=== PATIENT | female | born 1960 | race Caucasian/White ===

== ENCOUNTER → 2020-06-28 11:47 | Outpatient (CLI) | payer BC, SELFPAY ==
[2020-03-04 10:17] VITALS: BMI 40.7
--- NOTE | 2020-06-28 12:15 | RAD_ITS ---
STUDY: X-RAY LEFT FOOT, FIRST AND FIFTH TOES REASON FOR EXAM: Female, 59 years old. left great toe and 5th digit pain x 2 weeks ago. nki TECHNIQUE: 3 view(s) of the toe were obtained. COMPARISON: None. FINDINGS: No acute fracture, dislocation or osseous destruction. Osteopenia. Mild first metatarsophalangeal joint arthrosis. Minimal joint space narrowing at the distal interphalangeal joints. No significant soft tissue swelling. RAD/Toe(s) Min 2 Views IMPRESSION: Left foot intact Mild first MTP joint arthrosis Electronically Signed: Siddhartha Barros DO at 8:04 EST Tel , Service support ,
[2020-06-28 15:54] LABS: Erythrocyte Sedimentation Rate 9 mm/hr (0-30)
[2020-06-28 16:01] LABS: Hematocrit 41.2 % (37-47); Hemoglobin 13.3 g/dL (12.0-15.0); Mean Corp Hgb Conc 32.3 g/dL (32-36); Mean Corpuscular Hgb 30.4 pg (27.0-32.0); Mean Corpuscular Volume 94.3 fL (81-99); Platelet Count 244 K/mm3 (150-450); RBC Distribution Width CV 14.4 % (11.6-14.6); RBC Distribution Width SD 49.3 fl (35.1-43.9); Red Blood Count 4.37 M/mm3 (4.2-5.4); White Blood Count 7.9 K/mm3 (4.4-11.0)
[2020-06-28 17:14] LABS: ALB/GLOB Ratio 1.1 RATIO (0.9-2.4); AST(SGOT) 17 U/L (15-37); Alanine Aminotransfer ALT/SGPT 25 U/L (13-56); Alkaline Phosphatase 85 U/L (45-117); Anion Gap 6 (5-15); BUN 26 mg/dL (7-18); BUN/Creat Ratio 30.8 RATIO (10-20); CRP 6.98 mg/L (0.0-3.0); Chloride 105 mmol/L (98-107); Cholesterol 303 mg/dL (200); Creatinine, Serum 0.84 mg/dL (0.55-1.02); EST Glomerular Filtration Rate 73 mL/min (>60); Est Glom Filt Rate - Afr Amer 88 mL/min (>60); Globulin 3.5 g/dL (2.2-4.2); Glucose 89 mg/dL (74-106); High Density Lipoprotein 36 mg/dL; Potassium 3.9 mmol/L (3.5-5.1); Protein, Total 7.5 g/dL (6.4-8.2); Sodium Level 138 mmol/L (136-145); Triglycerides 328 mg/dL; Very Low Density Lipoprotein 66 mg/dL (5-40)
== END ==
PROVIDERS: PCP Internal Medicine; Visit Provider Internal Medicine
DX: M79.675 Pain in left toe(s) (principal)
CPT/HCPCS: 36415; 73660; 80053; 80061; 84443; 85027; 85652; 86140

== ENCOUNTER → 2020-11-18 08:43 | Outpatient (CLI) | payer BC, SELFPAY ==
--- NOTE | 2020-11-18 08:51 | VDLE_ITS ---
Reason For Study: pain and swelling RIGHT LEFT GSV is normal. GSV is normal. CFV is compressible, spontaneous, phasic, CFV is compressible, spontaneous, phasic, competent and demonstrates normal competent, and demonstrates normal augmentation. augmentation. FV is compressible, spontaneous, phasic, FV is compressible, spontaneous, phasic, competent and demonstrates normal competent and demonstrates normal augmentation. augmentation. POP V is compressible, spontaneous, phasic, POP V is compressible, spontaneous, phasic, competent and demonstrates normal competent and demonstrates normal augmentation. augmentation. T/P Trunk is compressible. T/P Trunk is compressible. PTV is compressible. PTV is compressible. RT PerV is compressible. LT PerV is compressible. Procedure This is a venous duplex using B-mode, color flow and spectral Doppler. Exam performed in department. The exam was diagnostic. VL/Venous Duplex US - Doron Extrem Interpretation Summary Lateral no DVT or SVT noted. Ordering Physician: Preet Byrne Performed By: Brady Gracia RVT
--- NOTE | 2020-11-18 08:52 | ART_ITS ---
Reason For Study: atherosclerosis with claudication Procedure A bilateral lower extremity continuous wave Doppler with analog waveform analysis and ankle brachial indexes. Left Segmental Pressures Left brachial= 179mmHg. Left posterior tibial artery = 100mmHg. Left dorsalis pedis artery = 126mmHg. Left digit = 106 mmHg. The left dorsalis pedis waveforms are monophasic. The left posterior tibial artery waveforms are monophasic. Right Segmental Pressures Right brachial= 171mmHg. Right posterior tibial artery = 195mmHg. Right dorsalis pedis artery = 197mmHg. Right digit = 188 mmHg. The right dorsalis pedis waveforms are triphasic. The right posterior tibial artery waveforms are triphasic. Indices The right ankle brachial index by the dorsalis pedis is 1.1. The right ankle brachial index by the posterior tibial artery is 1.09. The right digital-brachial index is 1.05. The left ankle brachial index by the posterior tibial artery is .56. The left ankle brachial index by the dorsalis pedis is .7. The left digital-brachial index is .59. VL/Ankle Brachial Index Interpretation Summary Right leg with no occlusive disease at rest with an ARCADIO 1.1 and triphasic flow. Left leg with moderate occlusive disease and an ARCADIO 0.7 and monophasic flow noted. DBI 1.05 a nd 0.59. Ordering Physician: Preet Byrne Performed By: KENNETH COOK Bette
== END ==
PROVIDERS: PCP Internal Medicine; Referring Provider Surgery Vascular Surgery; Visit Provider Surgery Vascular Surgery
DX: M79.606 Pain in leg, unspecified (principal); M79.89 Other specified soft tissue disorders; I70.213 Atherosclerosis of native arteries of extremities with intermittent claudication, bilateral legs; I10 Essential (primary) hypertension; E07.9 Disorder of thyroid, unspecified; I82.90 Acute embolism and thrombosis of unspecified vein
CPT/HCPCS: 93922; 93970

== ENCOUNTER 2021-07-22 10:42 | Outpatient (CLI) | payer OTHER, SELFPAY ==
[2021-07-22 12:20] LABS: Absolute Lymphocyte Count 1.88 X10^3/uL (0.83-4.51); Absolute Neutrophil Count 3.6 X10^3/uL (2.0-7.7); Basophil# 0.05 X10^3/uL; Basophil% 0.8 % (0-1); Eosinophil# 0.26 X10^3/uL; Eosinophils% 4.1 % (0-5); Hematocrit 36.6 % (37-47); Hemoglobin 11.7 g/dL (12.0-15.0); Lymphocyte # 1.88 X10^3/ul (0.83-4.51); Lymphocyte % 29.9 % (19-41); Mean Corpuscular Hgb 30.2 pg (27.0-32.0); Mean Corpuscular Volume 94.6 fL (81-99); Mean Platelet Vol. 11.7 fl (6.2-12.0); Monocyte# 0.47 X10^3/uL; Monocyte% 7.5 % (0-10); NRBC Flagged by Analyzer 0 % (0-5); Neutrophil % 57.4 % (47-70); Platelet Count 235 K/mm3 (150-450); RBC Distribution Width CV 14.7 % (11.6-14.6); RBC Distribution Width SD 51.2 fl (35.1-43.9); Red Blood Count 3.87 M/mm3 (4.2-5.4); White Blood Count 6.3 K/mm3 (4.4-11.0)
[2021-07-22 12:51] LABS: AST(SGOT) 7 U/L (15-37); Alanine Aminotransfer ALT/SGPT 19 U/L (13-56); Albumin, Serum 3.6 g/dL (3.2-5.0); Alkaline Phosphatase 78 U/L (45-117); Anion Gap 4 (5-15); BUN 18 mg/dL (7-18); BUN/Creat Ratio 20.4 RATIO (10-20); Calcium,Total 8.6 mg/dL (8.5-10.1); Chloride 110 mmol/L (98-107); Cholesterol 262 mg/dL (200); Creatinine, Serum 0.88 mg/dL (0.55-1.02); EST Glomerular Filtration Rate 69 mL/min (>60); Est Glom Filt Rate - Afr Amer 83 mL/min (>60); Globulin 3.7 g/dL (2.2-4.2); Glucose 97 mg/dL (74-106); High Density Lipoprotein 33 mg/dL; Protein, Total 7.3 g/dL (6.4-8.2); Sodium Level 140 mmol/L (136-145); Triglycerides 212 mg/dL; Very Low Density Lipoprotein 42 mg/dL (5-40)
== END 2021-07-22 23:59 | disposition home or self-care (01) ==
LOC: BIMLAB 10:44
PROVIDERS: PCP Internal Medicine; Referring Provider Nurse Practitioner Family; Visit Provider Nurse Practitioner Family
DX: I10 Essential (primary) hypertension (principal); E03.9 Hypothyroidism, unspecified
CPT/HCPCS: 36415; 80053; 80061; 84443; 85025

== ENCOUNTER → 2022-07-28 | Outpatient (CLI) | payer OTHER, SELFPAY ==
[2022-07-28 12:46] LABS: Absolute Lymphocyte Count 1.51 X10^3/uL (0.83-4.51); Absolute Neutrophil Count 3.6 X10^3/uL (2.0-7.7); Basophil# 0.06 X10^3/uL; Eosinophil# 0.31 X10^3/uL; Eosinophils% 5.2 % (0-5); Hematocrit 39.1 % (37-47); Hemoglobin 12.7 g/dL (12.0-15.0); Lymphocyte # 1.51 X10^3/ul (0.83-4.51); Lymphocyte % 25.5 % (19-41); Mean Corp Hgb Conc 32.5 g/dL (32-36); Mean Corpuscular Hgb 30.5 pg (27.0-32.0); Mean Platelet Vol. 12.3 fl (6.2-12.0); Monocyte# 0.44 X10^3/uL; Monocyte% 7.4 % (0-10); NRBC Flagged by Analyzer 0 % (0-5); Neutrophil # 3.58 X10^3/uL (2.7-7.7); Neutrophil % 60.6 % (47-70); Platelet Count 231 K/mm3 (150-450); RBC Distribution Width CV 14.6 % (11.6-14.6); RBC Distribution Width SD 50.5 fl (35.1-43.9); Red Blood Count 4.16 M/mm3 (4.2-5.4); White Blood Count 5.9 K/mm3 (4.4-11.0)
[2022-07-28 12:58] LABS: ALB/GLOB Ratio 1.1 RATIO (0.9-2.4); AST(SGOT) 16 U/L (15-37); Alanine Aminotransfer ALT/SGPT 22 U/L (13-56); Albumin, Serum 3.9 g/dL (3.2-5.0); Alkaline Phosphatase 84 U/L (45-117); Anion Gap 6 (5-15); BUN 19 mg/dL (7-18); BUN/Creat Ratio 23.3 RATIO (10-20); Calcium,Total 9.3 mg/dL (8.5-10.1); Chloride 105 mmol/L (98-107); Cholesterol 287 mg/dL (200); Creatinine, Serum 0.81 mg/dL (0.55-1.02); EST Glomerular Filtration Rate 75 mL/min (>60); Est Glom Filt Rate - Afr Amer 91 mL/min (>60); Globulin 3.7 g/dL (2.2-4.2); Glucose 91 mg/dL (74-106); High Density Lipoprotein 34 mg/dL; Potassium 4.2 mmol/L (3.5-5.1); Protein, Total 7.6 g/dL (6.4-8.2); Sodium Level 139 mmol/L (136-145); Thyroid Stim Hormone (TSH) 0.41 uIU/mL (0.358-3.74); Triglycerides 227 mg/dL; Very Low Density Lipoprotein 45 mg/dL (5-40)
== END | disposition home or self-care (01) ==
LOC: BIMLAB 08:30
PROVIDERS: PCP Internal Medicine; Visit Provider Nurse Practitioner Family
DX: E03.9 Hypothyroidism, unspecified (principal); I10 Essential (primary) hypertension
CPT/HCPCS: 36415; 80053; 80061; 84443; 85025

== ENCOUNTER → 2022-08-25 | Outpatient (CLI) | payer OTHER, SELFPAY ==
[2022-08-25 12:27] LABS: Anion Gap 6 (5-15); BUN 24 mg/dL (7-18); BUN/Creat Ratio 33.3 RATIO (10-20); Calcium,Total 9.3 mg/dL (8.5-10.1); Chloride 106 mmol/L (98-107); Creatinine, Serum 0.72 mg/dL (0.55-1.02); EST Glomerular Filtration Rate 87 mL/min (>60); Est Glom Filt Rate - Afr Amer 105 mL/min (>60); Glucose 101 mg/dL (74-106); Sodium Level 140 mmol/L (136-145)
== END | disposition home or self-care (01) ==
LOC: BIMLAB 09:09
PROVIDERS: PCP Internal Medicine; Visit Provider Nurse Practitioner Family
DX: I10 Essential (primary) hypertension (principal); E03.9 Hypothyroidism, unspecified
CPT/HCPCS: 36415; 80048

== ENCOUNTER → 2023-11-01 | Outpatient (CLI) | payer MEDICARE, SELFPAY ==
[2023-11-01 16:47] LABS: Absolute Lymphocyte Count 1.99 X10^3/uL (0.83-4.51); Absolute Neutrophil Count 4.2 X10^3/uL (2.0-7.7); Basophil# 0.07 X10^3/uL; Eosinophil# 0.43 X10^3/uL; Hematocrit 36.6 % (37-47); Hemoglobin 11.6 g/dL (12.0-15.0); Lymphocyte # 1.99 X10^3/ul (0.83-4.51); Lymphocyte % 27.8 % (19-41); Mean Corp Hgb Conc 31.7 g/dL (32-36); Mean Corpuscular Hgb 29.6 pg (27.0-32.0); Mean Corpuscular Volume 93.4 fL (81-99); Mean Platelet Vol. 11.7 fl (6.2-12.0); Monocyte# 0.46 X10^3/uL; Monocyte% 6.4 % (0-10); NRBC Flagged by Analyzer 0 % (0-5); Neutrophil # 4.19 X10^3/uL (2.7-7.7); Neutrophil % 58.5 % (47-70); Platelet Count 213 K/mm3 (150-450); RBC Distribution Width CV 14.7 % (11.6-14.6); RBC Distribution Width SD 50.5 fl (35.1-43.9); Red Blood Count 3.92 M/mm3 (4.2-5.4); White Blood Count 7.2 K/mm3 (4.4-11.0)
[2023-11-01 17:18] LABS: ALB/GLOB Ratio 1.1 RATIO (0.9-2.4); AST(SGOT) 13 U/L (15-37); Alanine Aminotransfer ALT/SGPT 21 U/L (13-56); Albumin, Serum 3.6 g/dL (3.2-5.0); Alkaline Phosphatase 83 U/L (45-117); Anion Gap 5 (5-15); BUN 17 mg/dL (7-18); BUN/Creat Ratio 19.3 RATIO (10-20); Calcium,Total 9.1 mg/dL (8.5-10.1); Chloride 111 mmol/L (98-107); Cholesterol 268 mg/dL (200); Creatinine, Serum 0.88 mg/dL (0.55-1.02); EST Glomerular Filtration Rate 69 mL/min (>60); Est Glom Filt Rate - Afr Amer 83 mL/min (>60); Globulin 3.2 g/dL (2.2-4.2); Glucose 96 mg/dL (74-106); High Density Lipoprotein 29 mg/dL; Potassium 3.8 mmol/L (3.5-5.1); Protein, Total 6.8 g/dL (6.4-8.2); Sodium Level 140 mmol/L (136-145); Thyroid Stim Hormone (TSH) 1.82 uIU/mL (0.358-3.74); Triglycerides 319 mg/dL; Very Low Density Lipoprotein 64 mg/dL (5-40)
== END | disposition home or self-care (01) ==
PROVIDERS: PCP Internal Medicine; Visit Provider Internal Medicine
DX: I10 Essential (primary) hypertension (principal); E03.9 Hypothyroidism, unspecified
CPT/HCPCS: 36415; 80053; 80061; 84443; 85025

== ENCOUNTER 2024-06-26 09:03 | Day surgery (SDC) | payer MEDICARE, SELFPAY ==
[2024-06-26] VITALS (8 sets, daily range): BP systolic 79–145; BP diastolic 47–93; PULSE 66–81; RESP 14–16; TEMP 36.1–36.8; O2SAT 93–100; BMI 33.4
--- NOTE | 2024-06-26 | IMM_PTH ---
PATIENT: LOVELY CALLE LOC: EN U#:[id number] AGE/SX: 63/F ROOM: RE06/26/[address]: Dr. Rivera Townsend DO : 1960 BED: DIS: 06/26/2024 SPEC #: [id number] RECD: 06/27/24 13:52 STATUS: JOHNNY REQ #: [id number] MOHINI: 06/26/24 00:[address]: Rivera Townsend DEPT: IMMUNOHISTOCHEMISTRY RECD BY: Jesus Klein ENTERED: 06/27/24 13:53 SP TYPE: IMMUNO OTHR DR: Dr. Virgilio Slaughter MD Tissues: Sigmoid colon biopsy Procedures: MSH2 (add) MLH-1 (add) MSH6 (add) Anti-PMS2 (add) KI-67 (add) P53 (add) MOC-31 (add) HER-2-OLINDA (initial) PHYSICIAN & INSTITUTION [address] [address] SPECIMEN INFORMATION: Tissue Source: Sigmoid mass biopsy Clinical Info: Chronic constipation Specimen Number: [id number] CPT code: 33770,94217v3 METHODOLOGY: Deparaffinized sections of prefer/formalin-fixed tissue or PAP/DQ stained slides are incubated with monoclonal/polyclonal antibodies/oligonucleotide probes. Localization is made via biotin free immunoperoxidase method. Appropriate controls are performed and reacted as expected. Results on target cell population are indicated in the following table: RESULTS: ANTIBODY / CLONE RESULT Her-2neu (CB11) negative (0) MOC-31 (4561) positive MLH-1 (M1) positive MSH2 (25D12) positive MSH6 (44) positive PMS2 (HVK7841) positive Ki-67 (30-9) positive, high P53 (DO-7) positive (missense mutation pattern) Testing for Her2 by IHC if equivocal, recommend testing for Her2 by FISH(remove/not needed) These tests were developed and their performance characteristics determined by [facility]. They may not have been cleared or approved by the U.S. Food and Drug Administration. The FDA has determined that such clearance or approval is not necessary. The above immunohistochemical/dualISH markers are ordered and reviewed by the Pathologist. INTERPRETATION: Sigmoid mass, biopsy: Invasive adenocarcinoma. Result of Microsatellite Instability Study: Negative (no loss of mismatch protein; no microsatellite instability detected). mr 06/30/2024
--- NOTE | 2024-06-26 | COLBX_PTH ---
PATIENT: LOVELY CALLE LOC: [facility]IA U#:[id number] AGE/SX: 63/F ROOM: RE06/26/[address]: Dr. Rivera Townsend DO : 1960 BED: DIS: 06/26/2024 SPEC #: [id number] RECD: 06/26/24 12:46 STATUS: JOHNNY RETony #: [id number] MOHINI: 06/26/24 00:[address]: Rivera Townsend DEPT: SURGICAL PATHOLOGY RECD BY: Julian Poon ENTERED: 06/26/24 12:47 SP TYPE: COLON BX OT DR: Dr. Virgilio Slaughter MD Tissues: Sigmoid colon biopsy Procedures: Surgery Specimen Level IV HEADER OPERATION: Colonoscopy with biopsy PRE-OP DIAGNOSIS: Chronic constipation TISSUE SUBMITTED: Sigmoid mass biopsy MICROSCOPIC DIAGNOSIS Sigmoid mass, biopsy: Invasive moderately differentiated adenocarcinoma. See rafael. 06/27/2024 COMMENT Immunohistochemistry ([id number]) for microsatellite instability (mismatch repair of protein) will be performed and the results will be reported separately. Correlation with clinical, endoscopic findings and appropriate follow up are necessary. MICROSCOPIC DESCRIPTION Slides are reviewed. GROSS DESCRIPTION Received in fixative is one container labeled with the patient's name and designated Sigmoid mass biopsy. The specimen consists of multiple irregular fragments of light ryan soft tissue that in aggregate measure 2.0 x 0.5 x 0.2 cm. The specimen is totally submitted in one cassette. [email or web address] 06/26/2024 TC:0 CPT:49168
--- NOTE | 2024-06-26 10:03 | PCM.HP.STD ---
HPI - General General Date of Admission: 06/26/24 Date of Service: 06/26/24 HPI Narrative LOVELY CALLE, is a 63 F who presentsChief Complaint: constipation Details: LOVELY CALLE, is a 63 F who presents to the office today for establishment with [facility]. Pt daniel been struggling with constipation for a few months now. Prior to this she was having regular bm daily. She is now having a bm once a week, if that. There was no medication changes at this time. The only change in her life was that she retired. She wonders if she is not moving enough and this is a factor. She has tried ex lax and miralax which gave her a bm but caused her al ot of cramping and discomfort. She feels she is eating less but has not had weight loss. She has had occasional bright red blood per rectum when she wipes. She has never had a colonoscopy before. She has no family hx of colon cancer. She denies abd pain, n/v, heartburn, diarrhea or melena. [facility] Medical History Wears glasses Smoker History of echocardiogram Cardiology follow-up encounter Wears dentures Blood in stool Chronic constipation Hyperlipidemia Health care maintenance Hypothyroidism Thyroid disease Hypertension Home Medications ?Medication ?Instructions ?Recorded ?Last Taken ?Type clopidogrel 75 mg tablet 75 mg PO DAILY #90 tabs 11/01/23 06/22/24 Rx hydrochlorothiazide 25 mg tablet 25 mg PO QAM #90 tabs 11/01/23 Unknown Rx levothyroxine 150 mcg tablet 150 mcg PO DAILY #90 tabs 11/01/23 06/26/24 05:35 Rx losartan 100 mg tablet 100 mg PO DAILY #90 tabs 11/01/23 06/26/24 05:35 Rx carvedilol 6.25 mg tablet 6.25 mg PO DAILY #90 tabs 05/02/24 06/26/24 05:35 Rx atorvastatin 20 mg tablet 20 mg PO DAILY #90 tabs 05/05/24 Unknown Rx Allergy/AdvReac Type Severity Reaction Status Date / Time No Known Allergies Allergy Verified 06/26/24 09:32 Family History Father Heart disease Mother Breast cancer Surgical History History of tonsillectomy (~1964) Social History Smoking Status: Current every day smoker tobacco type: cigarettes alcohol intake: never substance use type: does not use what type of physical activity do you participate in: walking and other details: work frequency: 5-6 times per week ROS Constitutional Constitutional: Denies fatigue, fever(s), poor appetite, weight gain or weight loss Gastrointestinal Gastrointestinal: Denies belching, bloating, change in bowel habits, change in stool character, chewing difficulty, coffee ground emesis, constipation, cramping, diarrhea, dyspepsia, dysphagia, early satiety, excessive flatus, fecal incontinence, heartburn, hematemesis, hematochezia, hemorrhoids, loose stools, melena, nausea, odynophagia, rectal bleeding, tenesmus, vomiting or weight changes Vital Signs Vital Signs Vital Signs: 06/26/24 09:36 06/26/24 09:36 Temperature 98.2 F Temperature Source Temporal Pulse Rate 80 Respiratory Rate 14 Respiratory Pattern Normal Blood Pressure 145/93 H Blood Pressure Mean 110 Blood Pressure Source Monitor Blood Pressure Position Semi-Fowlers Blood Pressure Location Right Arm Pulse Ox 100 Oxygen Delivery Method Room Air Weight Weight: 213 lb 6.519 oz Body Mass Index (BMI) 33.4 Physical Exam Const alert, oriented x3, no apparent distress and healthy appearing General Appearance: cooperative GI normal to inspection, nondistended, normoactive bowel sounds, soft to palpation, non-tender and non-distended Percussion: normal to percussion Rectal Exam: deferred Assessment & Plan Assessment/Plan (1) Chronic constipation: PLAN: Assessment and Plan Assessment and Plan (1) Chronic constipation: Status: Chronic Plan: This is a 63 yo female presenting for new onset issues with constipation. She is going at maximum once a week but sometimes less than this. Prior to this she was going once a day. She has never had a colonoscopy. SHe will need to undergo colonoscopy to assess for colon cancer as she has never had one and is having new symptoms of constipation. In the mean time she will try samples of Linzess 145 mcg. -Colonoscopy -Trial Linzess
--- NOTE | 2024-06-26 10:08 | PRE.ANES_ITS ---
ASA Classification* ASA Classification ASA Classification: 2 Assessment & Plan Anesthesia* Anesthesia Assessment Anesthesia Assessment: Discussed sedation and/or anesthesia options, risks, benefits, and alternatives with patient/parents/legal guardian/POA. Questions invited. The patient/parents/legal guardian/POA seems to understand and agrees to proceed with anesthesia plan. Reviewed the physical assessment, medical history, allergy history and patient home medications list prior to surgery/procedure/anesthetic and documented any changes. Performed airway and anesthesia risk assessments. Anesthesia Type Anesthesia Type: MAC Anesthesia Focused Assessment* Temperature: 98.2 F Pulse Rate: 80 Blood Pressure: 145/93 Respiratory Rate: 14 Pulse Ox: 100 Airway Assessment Mouth opens: >3 cm Mallampati Score: II Focused Labs Anesthesia Preop lab: CBC WBC 7.2 K/mm3 (4.4-11.0) 11/01/23 16:11 RBC 3.92 M/mm3 (4.2-5.4) L 11/01/23 16:11 Hgb 11.6 g/dL (12.0-15.0) L 11/01/23 16:11 Hct 36.6 % (37-47) L 11/01/23 16:11 Plt Count 213 K/mm3 (150-450) 11/01/23 16:11 CHEMISTRY Potassium 3.8 mmol/L (3.5-5.1) 11/01/23 16:11 Sodium 140 mmol/L (136-145) 11/01/23 16:11 BUN 17 mg/dL (7-18) 11/01/23 16:11 Creatinine 0.88 mg/dL (0.55-1.02) 11/01/23 16:11 Glucose 96 mg/dL (74-106) 11/01/23 16:11 TSH 1.82 uIU/mL (0.358-3.74) 11/01/23 16:11 COAG Pre-Assessment Diagnosis/Proposed Procedure Planned Operative Procedure(s): CSCOPE Anesthesia History 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 When Was Last Pacemaker Check QUESTION #4 FULL TEXT: You/Your Family Experience fever (hyperthermia) with Anesthesia Last Oral Intake Last Oral intake: Last Oral Intake NPO since 05:35 06/26/24 09:36 Meds taken in AM with sips of Yes 06/26/24 09:36 water? 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 Female Yes 06/25/24 11:12 HX of Motion Sickness No 06/25/24 11:12 HX of N/V After Surgery No 06/25/24 11:12 Non-Smoker No 06/25/24 11:12 Duration of Surgery greater No 06/25/24 11:12 than 60 minutes Number of Risk Factors 1 06/25/24 11:12 PONV Score Low Risk 06/25/24 11:12 Height & Weight Height & Weight: Anesthesia: Height & Weight Height 5 ft 7 in 06/26/24 09:36 Weight: 96.8 kg 06/26/24 09:36 Body Mass Index (BMI) 33.4 06/26/24 09:36 Respiratory Assessment Respiratory Assessment - cement production plant operator: Respiratory Tract Infection Hx - cement production plant operator Hx Respiratory Tract Infection No 06/25/24 11:12 STOP Sleep Apnea STOP Sleep Apnea - cement production plant operator: STOP Sleep Apnea - cement production plant operator Hx Hypertension Yes: COTNROLLED WITH MED 06/25/24 11:12 Hx Sleep Apnea No 06/25/24 11:12 CPAP BIPAP Do you snore loudly (louder No 06/25/24 11:12 than talking or can be heard Do you often feel tired/ No 06/25/24 11:12 fatigued/ sleepy during daytime? Has anyone observed you stop No 06/25/24 11:12 breathing during sleep? STOP Results Negative 06/25/24 11:12 QUESTION #5 FULL TEXT : Do you snore loudly (louder than talking or can be heard through closed doors)? 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 Specify any problems Hx of Preganancy in last 3 N/A 06/25/24 11:12 Months Nurse Filling Out Transfusion NBUCHER 06/25/24 11:12 & Questions: Date: 06/25/24 06/25/24 11:12 Time: 11:13 06/25/24 11:12 Patient unable to answer at this time (ie. 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: /Reproductive Hx- cement production plant operator Hx Now Gestational Age (in weeks): EDC: Hx Hx Para Hx Section SAB PFSH Medical History Wears glasses Smoker History of echocardiogram Cardiology follow-up encounter Wears dentures Blood in stool Chronic constipation Hyperlipidemia Health care maintenance Hypothyroidism Thyroid disease Hypertension Home Medications ?Medication ?Instructions ?Recorded ?Last Taken ?Type clopidogrel 75 mg tablet 75 mg PO DAILY #90 tabs 11/01/23 06/22/24 Rx hydrochlorothiazide 25 mg tablet 25 mg PO QAM #90 tabs 11/01/23 Unknown Rx levothyroxine 150 mcg tablet 150 mcg PO DAILY #90 tabs 11/01/23 06/26/24 05:35 Rx losartan 100 mg tablet 100 mg PO DAILY #90 tabs 11/01/23 06/26/24 05:35 Rx carvedilol 6.25 mg tablet 6.25 mg PO DAILY #90 tabs 05/02/24 06/26/24 05:35 Rx atorvastatin 20 mg tablet 20 mg PO DAILY #90 tabs 05/05/24 Unknown Rx Allergy/AdvReac Type Severity Reaction Status Date / Time No Known Allergies Allergy Verified 06/26/24 09:32 Family History Father Heart disease Mother Breast cancer Surgical History History of tonsillectomy (~1964) Social History Smoking Status: Current every day smoker tobacco type: cigarettes alcohol intake: never substance use type: does not use what type of physical activity do you participate in: walking and other details: work frequency: 5-6 times per week Review of Systems (Anesthesia) ROS Narrative System reviewed and no additional complaints, except as documented.
--- NOTE | 2024-06-26 11:07 | PCM.POST.ANE ---
Anesthesia: Postop Eval I Current Vital Signs Temperature: 98.3 F Pulse Rate: 76 Blood Pressure: 79/47 Respiratory Rate: 16 Pulse Ox: 98 Oxygen Delivery Method: Room Air Assessment Airway patent: Yes Spontaneous unlabored respirations: Yes Mental status: Asleep nausea: No Vomiting: No Anesthesia Complication: No Fluid Hydration Crystalloid volume administer (ml): 40 Total IV fluid infused: 40 Progress Note Anesthesia document: Postop Eval 1 completed: Yes
--- NOTE | 2024-06-26 11:13 | OP.COLON_ITS ---
Patient Name: Trudy Villalobos Procedure Date: 06/26/2024 10:42 AM Date of : 1960 Age: 63 Procedure: Colonoscopy Indications: Screening for colorectal malignant neoplasm Providers: Rivera Townsend DO Referring MD: Virgilio Slaughter MD Medicines: Monitored Anesthesia Care Patient Profile: This is a 63 year old female. Refer to note in patient chart for documentation of history and physical. Last Colonoscopy: none. The patient's first colonoscopy is today. Complications: No immediate complications. Procedure: Pre-Anesthesia Assessment: - Prior to the procedure, a History and Physical was performed, and patient medications and allergies were reviewed. The patient is competent. The risks and benefits of the procedure and the sedation options and risks were discussed with the patient. All questions were answered and informed consent was obtained. Patient identification and proposed procedure were verified by the physician in the pre-procedure area. Mental Status Examination: alert and oriented. Airway Examination: normal oropharyngeal airway and neck mobility. Respiratory Examination: clear to auscultation. CV Examination: normal. Prophylactic Antibiotics: The patient does not require prophylactic antibiotics. Prior Anticoagulants: The patient has taken no anticoagulant or antiplatelet agents except for NSAID medication. ASA Grade Assessment: II - A patient with mild systemic disease. After reviewing the risks and benefits, the patient was deemed in satisfactory condition to undergo the procedure. The anesthesia plan was to use monitored anesthesia care (MAC). Immediately prior to administration of medications, the patient was re-assessed for adequacy to receive sedatives. The heart rate, respiratory rate, oxygen saturations, blood pressure, adequacy of pulmonary ventilation, and response to care were monitored throughout the procedure. The physical status of the patient was re-assessed after the procedure. After I obtained informed consent, the scope was passed under direct vision. Throughout the procedure, the patient's blood pressure, pulse, and oxygen saturations were monitored continuously. The Colonoscope was introduced through the anus and advanced to the sigmoid colon. The colonoscopy was performed without difficulty. The patient tolerated the procedure well. The quality of the bowel preparation was poor. The rectum was photographed. Scope In: 10:48:53 AM Scope Out: 10:55:36 AM Total Procedure Duration Time 0 hours 6 minutes 43 seconds Findings: An ulcerated partially obstructing large mass was found in the rectum. The mass was circumferential. The mass measured ten cm in length. In addition, its diameter measured five mm. No bleeding was present. This was biopsied with a cold forceps for histology. Verification of patient identification for the specimen was done. Estimated blood loss was minimal. Stool was found in the rectum, in the recto-sigmoid colon and in the sigmoid colon, interfering with visualization. Impression: - Preparation of the colon was poor. - Malignant partially obstructing tumor in the rectum. Biopsied. - Stool in the rectum, in the recto-sigmoid colon and in the sigmoid colon. Recommendation: - Discharge patient to home. - Full liquid diet. - Continue present medications. - Await pathology results. - Refer to a colo-rectal surgeon in 1 day. - Referral to oncology for neoadjuvant therapy -CEA -CT scan of the chest abdomen pelvis - Repeat colonoscopy is recommended for surveillance. The colonoscopy date will be determined after pathology results from today's exam become available for review. Procedure Code(s): --- Professional --- 55949, 52, Colonoscopy, flexible; with biopsy, single or multiple CPT copyright 2021 [employer]. All rights reserved. The codes documented in this report are preliminary and upon manager of merchandising review may be revised to meet current compliance requirements. Rivera Townsend DO 06/26/2024 11:13:23 AM This report has been signed electronically. Number of Addenda: 0 Note Initiated On: 06/26/2024 10:42 AM
--- NOTE | 2024-06-26 11:14 | OP.CCLET_ITS ---
06/26/2024 Virgilio Slaughter MD [address] [place] [address] [place] [address] Re : Colonoscopy procedure for Trudy Villalobos Dear Dr. Slaughter This procedure was performed on June. My impressions and recommendations are as follows: Impressions : - Preparation of the colon was poor. - Malignant partially obstructing tumor in the rectum. Biopsied. - Stool in the rectum, in the recto-sigmoid colon and in the sigmoid colon. Recommendations : - Discharge patient to home. - Full liquid diet. - Continue present medications. - Await pathology results. - Refer to a colo-rectal surgeon in 1 day. - Referral to oncology for neoadjuvant therapy -CEA -CT scan of the chest abdomen pelvis - Repeat colonoscopy is recommended for surveillance. The colonoscopy date will be determined after pathology results from today's exam become available for review. My findings are described in the full procedure note, which is enclosed. If I can be of further assistance, please feel free to contact me at . Sincerely, Rivera Townsend, 06/26/2024 11:13:23 AM This report has been signed electronically.
--- NOTE | 2024-06-26 11:45 | PCM.POSTANE2 ---
Anesthesia Postop Eval I Sum Postop Eval Completion status Anesthesia document: Postop Eval 1 completed: Yes Anesthesia Postop Eval I Summary Anesthesia Postop Eval I Summary: Anesthesia Postop Eval I: Assessment Summary Airway patent Yes 06/26/24 11:08 [email or web address] Spontaneous unlabored Yes 06/26/24 11:08 [email or web address] respirations Mental status Asleep 06/26/24 11:08 [email or web address] nausea No 06/26/24 11:08 [email or web address] Vomiting No 06/26/24 11:08 [email or web address] Anesthesia Postop Eval I: Fluid Summary Crystalloid volume administer 40 06/26/24 11:08 [email or web address] (ml) Colloids volume administered ( ml) Blood Product volume administered (ml) Total IV fluid infused 40 06/26/24 11:08 [email or web address] Anesthesia Postop Eval I: Summary Notes Anesthesia Complication No 06/26/24 11:08 [email or web address] Anesthesia Complication Comment: Post-operative progress note Anesthesia: Postop Eval II Evaluation Mental status: Awake Pain Level: 0 nausea: No Vomiting: No
== END 2024-06-26 12:08 | disposition home or self-care (01) ==
LOC: EN 09:05 → AC 09:10
PROVIDERS: PCP Internal Medicine; Referring Provider Internal Medicine; Visit Provider Internal Medicine Gastroenterology
PROC: 0DJD8ZZ Inspection of Lower Intestinal Tract, Via Natural or Artificial Opening Endoscopic (ICD-10-PCS; CPT 45378; principal; 2024-06-26 10:25)
DX: C18.7 Malignant neoplasm of sigmoid colon (principal); I10 Essential (primary) hypertension; Z80.3 Family history of malignant neoplasm of breast; E78.5 Hyperlipidemia, unspecified; Z79.02 Long term (current) use of antithrombotics/antiplatelets; E03.9 Hypothyroidism, unspecified; F17.210 Nicotine dependence, cigarettes, uncomplicated; K59.09 Other constipation
CPT/HCPCS: 81002; 88305; 88341; 88342; A4216; J2405

== ENCOUNTER → 2024-07-04 | Outpatient (CLI) | payer MEDICARE, SELFPAY ==
--- NOTE | 2024-07-04 08:16 | MRI_ITS ---
STUDY: MR PELVIS WITHOUT CONTRAST REASON FOR EXAM: Female, 63 years old. STAGING RECTAL CANCER, POSITIVE COLONOSCOPY 1WK AGO, BLOODY STOOL FEW MONTHS TECHNIQUE: Standardized fat and water weighted pulse sequences were obtained in all 3 orthogonal planes. COMPARISON: None. FINDINGS: * Circumferential 2.16 cm fungating mass invading all 3 layers of the wall of the distal sigmoid colon and rectosigmoid junction located 11 cm above the anal opening, see image #13/ series 6. There is also extension of tumor through the outer covering of the distal sigmoid colon seen on image 12/ series 6. This is also well visualized on the postcontrast image /44 series 14. 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 * No pelvic lymphadenopathy is present. * No marrow edema or lytic or blastic lesions or enhancing lesions are seen in the bony structures. * Bicornuate uterus noted. Unremarkable adnexa. Normal bilateral ovaries. Normal urinary bladder. Normal visualized small intestine. Normal remaining visualized colon. There is no pelvic fluid. There is no pelvic mass lesion or lymphadenopathy. Normal osseous structures. Normal abdominal wall. MRI/Pelvis W/WO Contrast IMPRESSION: 1. Circumferential 2.16 cm fungating mass invading all 3 layers of the wall of the distal sigmoid colon and rectosigmoid junction located 11 cm above the anal opening, see image #13/26 series 6. There is also extension of tumor through the outer covering of the distal sigmoid colon seen on image 12/26 series 6. This is also well visualized on the postcontrast image 22/44 series 14. 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 There is also moderate diffuse thickening and edema and hyperenhancement of the inner mucosa and muscular portion of the wall of the entire rectum down to the anus most likely due to desmoplastic reaction from the above tumor. * High position: 10 to 15 cm above the anal sphincter * T3: tumor invades through the muscularis propria into the subserosa or into non-peritonealised perirectal tissues without reaching the mesorectal fascia or adjacent organs * Consultation with surgery/oncology recommended * Correlation with PET/CT imaging also recommended. * A CT of abdomen and pelvis with contrast can be obtained to evaluate the remaining structures for possible distal metastasis or involvement. PRIMARY TUMOR STAGING (T) Strictly speaking TNM staging, such as the [place] Joint Committee on Cancer (AJCC) 8th edition, does not subclassify T3. However, this subclassification does have the treatment and prognostic significance 7,8; tumors with a stage T3b or less confer a 5-year cancer-specific survival rate of 85%, whereas tumors with a stage T3c or greater have a 54% survival rate. * Tx: primary tumor cannot be assessed * T0: no evidence of primary tumor * Tis: carcinoma in situ: intraepithelial or invasion of lamina propria * T1: tumor invades submucosa * T2: tumor invades muscularis propria * MRI does not yet have the resolution capable of enabling differentiation of T1 and T2 lesions * T3: tumor invades through the muscularis propria into the subserosa or into non-peritonealised perirectal tissues without reaching the mesorectal fascia or adjacent organs * T4: tumor invades directly into other organs or structures and/or perforates visceral peritoneum Tumor location: * High position: 10 to 15 cm above the anal sphincter * Mid position: 5 to 10 cm above the anal sphincter * Low position: 0 to 5 cm above the anal sphincter Layers of the rectum/rectosigmoid colon: * Submucosa * Muscularis propria * Mucosal rectum * Mesorectal fascia Peritoneal space Adjacent and distal organs Electronically Signed: Lebron Titus MD at 13:38 EST ,
== END | disposition home or self-care (01) ==
PROVIDERS: PCP Internal Medicine; Referring Provider Internal Medicine Medical Oncology; Visit Provider Internal Medicine Medical Oncology
DX: C20 Malignant neoplasm of rectum (principal)
CPT/HCPCS: 72197; A9575

== ENCOUNTER → 2024-07-17 | Outpatient (CLI) | payer MEDICARE, SELFPAY ==
--- NOTE | 2024-07-17 09:50 | CT_ITS ---
EXAM: CT Chest, Abdomen and Pelvis With Intravenous Contrast CLINICAL INDICATION: TECHNIQUE: Axial computed tomography images of the chest, abdomen and pelvis with intravenous contrast. This CT exam was performed using one or more of the following dose reduction techniques: automated exposure control, adjustment of the mA and/or kV according to patient size, and/or use of iterative reconstruction technique. COMPARISON: No relevant prior studies available. FINDINGS: CHEST: LUNGS AND PLEURAL SPACES: Mild lung emphysema. No consolidation. No significant effusion. No pneumothorax. No suspicious pulmonary nodules. HEART: Unremarkable. No cardiomegaly. No significant pericardial effusion. No significant coronary artery calcifications. ABDOMEN: LIVER: Hepatomegaly with fatty infiltration. GALLBLADDER AND BILE DUCTS: Probable gallbladder sludge/cholelithiasis. No ductal dilation. PANCREAS: Unremarkable. No ductal dilation. No mass. SPLEEN: Unremarkable. No splenomegaly. ADRENALS: Unremarkable. No mass. KIDNEYS AND URETERS: Unremarkable. No hydronephrosis. No solid mass. STOMACH AND BOWEL: Constipation. Apparent thickening of the sigmoid colon could be secondary to underdistention or mass. Please refer to recent colonoscopy for further detail. PELVIS: APPENDIX: No findings to suggest acute appendicitis. BLADDER: Unremarkable. No mass. REPRODUCTIVE: Unremarkable as visualized. CHEST, ABDOMEN and PELVIS: INTRAPERITONEAL SPACE: Unremarkable. No significant fluid collection. No free air. BONES/JOINTS: Multilevel endplate degenerative change and disc disease of the lumbar spine. No acute fracture. No dislocation. SOFT TISSUES: Umbilical hernia containing fat. Bilateral inguinal hernias. VASCULATURE: Scattered calcified atherosclerotic disease of aorta. No aortic aneurysm. LYMPH NODES: Unremarkable. No enlarged lymph nodes. CT/CT Chest, Abd, Pel w/Contrast IMPRESSION: 1. Constipation. Apparent thickening of the sigmoid colon could be secondary to underdistention or mass. Please refer to recent colonoscopy for further detail. 2. Hepatomegaly with fatty infiltration. 3. Umbilical hernia containing fat. 4. No thoracic, abdominal or pelvic lymphadenopathy. No suspicious pulmonary nodules or osseous lesions. Reading Location: [facility]
== END | disposition home or self-care (01) ==
LOC: CT 07:35
PROVIDERS: PCP Internal Medicine; Referring Provider Student in an Organized Health Care Education/Training Program; Visit Provider Student in an Organized Health Care Education/Training Program
DX: C18.9 Malignant neoplasm of colon, unspecified (principal)
CPT/HCPCS: 71260; 74177; Q9967; A4216

== ENCOUNTER → 2024-08-04 | Outpatient (CLI) | payer MEDICARE, SELFPAY ==
[2024-08-04 20:33] LABS: ALB/GLOB Ratio 1.1 RATIO (0.9-2.4); AST(SGOT) 10 U/L (15-37); Alanine Aminotransfer ALT/SGPT 20 U/L (13-56); Albumin, Serum 3.7 g/dL (3.2-5.0); Alkaline Phosphatase 115 U/L (45-117); Anion Gap 5 (5-15); BUN 20 mg/dL (7-18); BUN/Creat Ratio 21.5 RATIO (10-20); Calcium,Total 9.5 mg/dL (8.5-10.1); Chloride 106 mmol/L (98-107); Cholesterol 229 mg/dL (200); Creatinine, Serum 0.93 mg/dL (0.55-1.02); EST Glomerular Filtration Rate 64 mL/min (>60); Est Glom Filt Rate - Afr Amer 78 mL/min (>60); Globulin 3.5 g/dL (2.2-4.2); Glucose 108 mg/dL (74-106); High Density Lipoprotein 35 mg/dL; Protein, Total 7.2 g/dL (6.4-8.2); Sodium Level 140 mmol/L (136-145); Triglycerides 224 mg/dL; Very Low Density Lipoprotein 45 mg/dL (5-40)
== END | disposition home or self-care (01) ==
LOC: BIMLAB 08:39
PROVIDERS: PCP Internal Medicine; Referring Provider Internal Medicine; Visit Provider Internal Medicine
DX: E78.5 Hyperlipidemia, unspecified (principal); E03.9 Hypothyroidism, unspecified
CPT/HCPCS: 36415; 80053; 80061; 84443

== ENCOUNTER 2024-09-17 07:21 | Day surgery (SDC) | payer MEDICARE, SELFPAY ==
[2024-09-17] VITALS (8 sets, daily range): BP systolic 100–156; BP diastolic 56–77; PULSE 66–78; RESP 16–20; TEMP 36.4–37; O2SAT 94–98; BMI 31.7
--- NOTE | 2024-09-17 07:57 | PCM.PRE.AN2 ---
ASA Classification* ASA Classification ASA Classification: 2 Assessment & Plan Anesthesia* Anesthesia Assessment Anesthesia Assessment: Discussed sedation and/or anesthesia options, risks, benefits, and alternatives with patient/parents/legal guardian/POA. Questions invited. The patient/parents/legal guardian/POA seems to understand and agrees to proceed with anesthesia plan. Reviewed the physical assessment, medical history, allergy history and patient home medications list prior to surgery/procedure/anesthetic and documented any changes. Performed airway and anesthesia risk assessments. Anesthesia Type Anesthesia Type: MAC Anesthesia Focused Assessment* Temperature: 98.2 F Pulse Rate: 77 Blood Pressure: 156/77 Respiratory Rate: 18 Pulse Ox: 98 Airway Assessment Mouth opens: >3 cm Mallampati Score: II Focused Labs Anesthesia Preop lab: CBC WBC 7.7 K/mm3 (4.4-11.0) 09/04/24 14:41 09/04/24 RBC 3.84 M/mm3 (4.2-5.4) L 09/04/24 14:41 09/04/24 Hgb 11.9 g/dL (12.0-15.0) L 09/04/24 14:41 09/04/24 Hct 35.2 % (37-47) L 09/04/24 14:41 09/04/24 Plt Count 323 K/mm3 (150-450) 09/04/24 14:41 09/04/24 CHEMISTRY Potassium 3.8 mmol/L (3.3-5.1) 09/04/24 14:41 09/04/24 Sodium 139 mmol/L (133-145) 09/04/24 14:41 09/04/24 Magnesium 2.1 mg/dL (1.5-2.2) 09/04/24 14:41 09/04/24 Phosphorus 3.0 mg/dL (2.7-4.5) 09/04/24 14:41 09/04/24 BUN 18 mg/dL (4-19) 09/04/24 14:41 09/04/24 Creatinine 0.83 mg/dL (0.70-1.20) 09/04/24 14:41 09/04/24 Glucose 87 mg/dL (70-99) 09/04/24 14:41 09/04/24 TSH 4.790 uIU/mL (0.358-3.740) H 08/04/24 08:39 08/04/24 COAG Pre-Assessment Diagnosis/Proposed Procedure Planned Operative Procedure(s): (R) Insertion, Vascular Port right poss left Anesthesia History Anesthesia History - feather baler: Anesthesia History - feather baler Hx Hospitalization No 09/11/24 08:24 Any Problems With Anesthesia No 09/11/24 08:24 Cholinesterase deficiency No 09/11/24 08:24 You/Your Family Experience No 09/11/24 08:24 fever (hyperthermia) with Relationship Recent Exposure to Contagious No 09/17/24 07:48 Disease Does patient have nerve No 09/11/24 08:24 stimulator Patient instructed to have device shut off --Does patient have Pacemaker No 09/17/24 07:48 or ICD? When Was Last Pacemaker Check QUESTION #4 FULL TEXT: You/Your Family Experience fever (hyperthermia) with Anesthesia Last Oral Intake Last Oral intake: Last Oral Intake NPO since 06:15 09/17/24 07:48 Meds taken in AM with sips of Yes 09/17/24 07:48 water? Meds patient instructed to take am of surgery PONV PONV - feather baler: PONV - feather baler Female Yes 09/11/24 08:24 HX of Motion Sickness No 09/11/24 08:24 HX of N/V After Surgery No 09/11/24 08:24 Non-Smoker No 09/11/24 08:24 Duration of Surgery greater Yes 09/11/24 08:24 than 60 minutes Number of Risk Factors 2 09/11/24 08:24 PONV Score Moderate Risk 09/11/24 08:24 Height & Weight Height & Weight: Anesthesia: Height & Weight Height 5 ft 7 in 09/17/24 07:48 Weight: 92 kg 09/17/24 07:48 Body Mass Index (BMI) 31.7 09/17/24 07:48 Respiratory Assessment Respiratory Assessment - feather baler: Respiratory Tract Infection Hx - feather baler Hx Respiratory Tract Infection No 09/11/24 08:24 STOP Sleep Apnea STOP Sleep Apnea - feather baler: STOP Sleep Apnea - feather baler Hx Hypertension Yes: COTNROLLED WITH MED 09/11/24 08:24 Hx Sleep Apnea No 09/11/24 08:24 CPAP BIPAP Do you snore loudly (louder No 09/11/24 08:24 than talking or can be heard Do you often feel tired/ No 09/11/24 08:24 fatigued/ sleepy during daytime? Has anyone observed you stop No 09/11/24 08:24 breathing during sleep? STOP Results Negative 09/11/24 08:24 QUESTION #5 FULL TEXT : Do you snore loudly (louder than talking or can be heard through closed doors)? 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 Specify any problems Hx of Preganancy in last 3 No 09/11/24 08:24 Months Nurse Filling Out Transfusion VCHRISTIN 09/11/24 08:24 & Questions: Date: 09/11/24 09/11/24 08:24 Time: 08:25 09/11/24 08:24 Patient unable to answer at this time (ie. confused, unrespo /Reproduction History /Reproductive History - feather baler: /Reproductive Hx- feather baler Hx Now Gestational Age (in weeks): EDC: Hx Hx Para Hx Section SAB Active Medications Active Medications: Current Medications Generic Name Dose Route Start Last Admin Trade Name Freq PRN Reason Stop Dose Admin Cefazolin Sodium 2 gm/ N/A 20 mls @ 400 mls/hr 09/17/24 09:00 IV 09/17/24 09:02 PREOP ONE PFSH Medical History Encounter for education Regional lymph node metastasis present Wears glasses Smoker History of echocardiogram Cardiology follow-up encounter Wears dentures Blood in stool Chronic constipation Hyperlipidemia Health care maintenance Hypothyroidism Thyroid disease Hypertension Home Medications ?Medication ?Instructions ?Recorded ?Last Taken ?Type clopidogrel 75 mg tablet 75 mg PO DAILY #90 tabs 11/01/23 09/11/24 Rx hydrochlorothiazide 25 mg tablet 25 mg PO QAM #90 tabs 11/01/23 Unknown Rx losartan 100 mg tablet 100 mg PO DAILY #90 tabs 11/01/23 09/17/24 06:15 Rx carvedilol 6.25 mg tablet 6.25 mg PO DAILY #90 tabs 05/02/24 09/17/24 06:15 Rx atorvastatin 40 mg tablet 40 mg PO DAILY #90 tabs 08/04/24 Unknown Rx levothyroxine 150 mcg tablet 150 mcg PO DAILY #120 tabs 08/04/24 09/17/24 06:15 Rx potassium iodide 65 mg tablet 130 mg PO QDAY PRN pain 09/08/24 Unknown History lidocaine-prilocaine 2.5 %-2.5 % 1 applic topical ONCE PRN port 09/09/24 Unknown Rx topical cream access 30 days #30 grams ondansetron 8 mg disintegrating 8 mg PO Q8H PRN nausea and 09/09/24 Unknown Rx tablet vomiting #30 tabs prochlorperazine maleate 10 mg 10 mg PO Q6H PRN nausea and 09/09/24 Unknown Rx tablet vomiting #30 tabs Allergy/AdvReac Type Severity Reaction Status Date / Time No Known Allergies Allergy Verified 09/17/24 07:46 Family History Father Heart disease Mother Breast cancer Heart disease Surgical History Hx of colonoscopy S/P colectomy History of tonsillectomy (~1964) Social History Smoking Status: Current every day smoker tobacco type: cigarettes alcohol intake: current alcohol intake frequency: holidays/special occasions only substance use type: does not use what type of physical activity do you participate in: walking and other details: work frequency: 5-6 times per week Review of Systems (Anesthesia) ROS Narrative System reviewed and no additional complaints, except as documented.
--- NOTE | 2024-09-17 08:34 | PCM.HP.BLA ---
History and Physical Date of Admission: 09/17/24 Intake Chief Complaint: port placement Allergies No Known Allergies Allergy (Verified 09/08/24 08:54) Medications ?Medication ?Instructions ?Recorded ?Confirmed ?Type clopidogrel 75 mg tablet 75 mg PO DAILY #90 tabs 11/01/23 09/08/24 Rx hydrochlorothiazide 25 mg tablet 25 mg PO QAM #90 tabs 11/01/23 09/08/24 Rx losartan 100 mg tablet 100 mg PO DAILY #90 tabs 11/01/23 09/08/24 Rx carvedilol 6.25 mg tablet 6.25 mg PO DAILY #90 tabs 05/02/24 09/08/24 Rx atorvastatin 40 mg tablet 40 mg PO DAILY #90 tabs 08/04/24 09/08/24 Rx levothyroxine 150 mcg tablet 150 mcg PO DAILY #120 tabs 08/04/24 09/08/24 Rx potassium iodide 65 mg tablet 130 mg PO QDAY 09/08/24 09/08/24 History Assessment and Plan Assessment and Plan (1) Colorectal cancer: Status: Acute 09/08/24917 <Electronically signed by Humberto Leigh MD> Date Humberto Leigh MD cc: ~* Signed Intake Vital Signs 09/04/2512:38 09/09/2507:54 Height 5 ft 7 in 5 ft 7 in BP 146/83 H 113/72 Blood Pressure Location Lt brachial Rt brachial Position Sitting Sitting Respiration 16 16 Pulse 67 Pulse Source Monitor Temp 96.5 F L Pulse Oximetry (%) 97 Oxygen Delivery Method room air Intake Visit Reasons: PORT PLACEMENT Chief Complaint: port placement [employer] Required: No Is patient in pain?: No Allergies No Known Allergies Allergy (Verified 09/08/24 08:54) Medications ?Medication ?Instructions ?Recorded ?Confirmed ?Type clopidogrel 75 mg tablet 75 mg PO DAILY #90 tabs 11/01/23 09/08/24 Rx hydrochlorothiazide 25 mg tablet 25 mg PO QAM #90 tabs 11/01/23 09/08/24 Rx losartan 100 mg tablet 100 mg PO DAILY #90 tabs 11/01/23 09/08/24 Rx carvedilol 6.25 mg tablet 6.25 mg PO DAILY #90 tabs 05/02/24 09/08/24 Rx atorvastatin 40 mg tablet 40 mg PO DAILY #90 tabs 08/04/24 09/08/24 Rx levothyroxine 150 mcg tablet 150 mcg PO DAILY #120 tabs 08/04/24 09/08/24 Rx potassium iodide 65 mg tablet 130 mg PO QDAY 09/08/24 09/08/24 History Have you fallen in the past year?: No PFSH Medical History Regional lymph node metastasis present Wears glasses Smoker History of echocardiogram Cardiology follow-up encounter Wears dentures Blood in stool Chronic constipation Hyperlipidemia Health care maintenance Hypothyroidism Thyroid disease Hypertension Surgical History S/P colectomy History of tonsillectomy (~1964) Family History Father Heart diseaseMother Breast cancer Heart disease Social History Smoking Status: Current every day smoker tobacco type: cigarettes alcohol intake: current alcohol intake frequency: holidays/special occasions only substance use type: does not use what type of physical activity do you participate in: walking and other details: work frequency: 5-6 times per week HPI HPI HPI: Patient is a 63-year-old female here for right chest port placement. She has colon cancer which was positive in the lymph nodes. ROS General General: Yes colon cancer; No weight change, appetite, fatigue, breast cancer or weakness HEENT HEENT: No difficulty swallowing, eye injury, eye surgery, swollen glands or hoarseness Endo Endocrine: Yes thyroid disease; No diabetes mellitus, thyroid cancer, Hair loss, heat intolerance or cold intolerance Skin Skin: No rash or changing moles Breast Breast: No left breast lump, right breast lump, nipple discharge, breast pain, abnormal mammogram, abnormal US or breast enlargement Musc Musculoskeletal: No back problems, arthritis, rheumatoid arthritis, gout or joint pain Cardio Cardiovascular: Yes high blood pressure; No murmur, pacemaker, heart disease, atrial fibrillation, heart attack, heart stent, palpitations, shortness of breath with exertion or chest pain Psych Psychiatric: No depression, anxiety or hearing voices Resp Respiratory: No shortness of breath, No sleep apnea, No cough, No COPD, No asthma, No emphysema and No wheezing Gastro Gastrointestinal: No abdominal pain, No nausea or vomiting, No diarrhea, No constipation, No blood in stool, No acid reflux, No hemorrhoids, No ulcers, No gallbladder problem and No black,tarry stools Bennett Hematologic: Yes blood thinners, No blood disorders, No bleeding, No anemia and No blood clots Neuro Neurologic: No system reviewed and no additional complaints, except as documented, No as per HPI, No abnormal gait, No abnormal hearing, No abnormal movements, No abnormal speech, No behavioral changes, No burning sensations, No confusion, No convulsions, No disequilibrium, No dizziness, No localized weakness, No frequent falls, No headache(s), No lack of coordination, No loss of vision, No memory loss, No numbness, No other visual disturbances, No radicular pain, No restless legs, No sensory deficit, No syncope, No tingling, No tremor(s), No weakness and No other Exam Const General: cooperative Orientation: alert and oriented x3 HENCT Head: normal to inspection Neck Neck: normal visual inspection and full ROM Chest Chest palpation & inspection: normal inspection of the chest Resp Effort & Inspection: normal respiratory effort Auscultation: clear to auscultation bilaterally Cardio Rate: regular rate Rhythm: regular rhythm GI Inspection: non-distended Palpation: soft and nontender Skin General: no rashes or lesions noted Neuro General: patient alert and patient oriented x3 Extrem General: full ROM Psych Appearance: grossly normal Mental Status: mental status grossly normal Assessment and Plan Assessment and Plan (1) Colorectal cancer: Status: Acute Plan: Patient has colon cancer with positive lymph nodes. I discussed right chest port placement with the patient in detail. I discussed the risks including but not limited to bleeding, infection, pneumothorax, line infection or DVT. Patient understands the risks and is willing to proceed. She will hold her Plavix for 5 days. Humberto Leigh MD Pager: [facility] [address] [place] [address], [address] [place] [address] Office: I have seen and examined the patient and reviewed the H&P. THere are no clinical changes.
[2024-09-17] MEDS: Cefazolin 2 GM in Syringe IV (09:00)
[2024-09-17] MEDS: Lidocaine 1% (20 ml mdv) 20 ML Vial (09:30)
[2024-09-17] MEDS: Bupivacaine Mpf 0.5% 30 ML VIAL (09:31)
--- NOTE | 2024-09-17 09:37 | OP.PCM_ITS ---
Operative Report (Standard) Operative Information Date of Procedure: 09/17/24 Pre-Operative Diagnosis: Need for vascular access for chemotherapy Post-Operative Diagnosis: Same Surgery/Procedure Performed: Ultrasound and fluoroscopy guided right chest port placement utilizing right IJ supervisor shuttle veneering: No Type of Anesthesia: Local MAC RN Documented Start/Stop Times: Operation Date: 09/17/24 09:00 Case Time Into Pre-Op 09/17/24 07:30 Anesthesia Start 09/17/24 09:00 Into Room 09/17/24 09:00 Procedure Start 09/17/24 09:14 Procedure End 09/17/24 09:31 Anesthesia End 09/17/24 09:36 Out of Room 09/17/24 09:36 Procedure Start Time: 09:14 Procedure Stop Time: :31 Select all DRAINS/GRAFTS/IMPLANTS that apply: Implanted device Implanted device details: 8 English PowerPort Estimated Blood Loss: 5 Specimen collected: No Description of surgery: After obtaining informed consent patient was brought back to the operating room MAC anesthesia was induced and the right chest and neck were prepped in normal sterile fashion. Ultrasound was used to evaluate both IJs and the right IJ was selected. Next, using a needle, the right IJ was accessed and a guidewire was passed on into the superior vena cava under fluoroscopy guidance. A small incision was made over the puncture site and the dilator introducer was placed over the guidewire. Next this was capped and the pocket was made for the port. 1% lidocaine with epinephrine was injected in the proposed port site. An incision was made with scalpel. Electrocautery was used to make a pocket under the skin and subcutaneous tissue. Hemostasis was obtained. Next, the catheter was tunneled up to the neck incision site and placed through the introducer. The peel-away introducer was removed and the position of the catheter was confirmed on fluoroscopy. Next, the catheter was trimmed and attached to the port with the locking device. Interrupted 2-0 Vicryl sutures were used to anchor the port to the chest wall and then the port was placed inside the pocket. The pocket was then flushed with saline and the port irrigated with saline. There was good blood return and the port flushed easily. Next, heparin was injected into the port. The skin was closed with subcutaneous interrupted 3-0 Vicryl sutures. A single 3-0 Vicryl sutures placed under the skin at the neck incision site. Steri-Strips were placed as well as op sites. Patient tolerated procedure well, was taken to PACU in stable condition. Chest x-ray will be obtained. Surgical Findings: 8 [employer] PowerPort Complications Complications: No Admit VTE Documentation VTE Mechan Device Prophylaxis: SCD's
--- NOTE | 2024-09-17 09:38 | DCINST_ITS ---
Discharge Instructions Procedure Port-A-Cath Diet Discharge Diet: Light diet - advance as tolerated (Pain medication may cause nausea. You should typically eat light foods as you take your pain medication.) Activity Discharge Activity: Return to Normal Activity and May Shower (with your bandage in place in 1-2 days after surgery. DO NOT SHOWER WHEN YOUR PORT IS ACCESSED.) Additional Activity Instructions:: Resume Plavix on Sunday Alternate ibuprofen and Tylenol for pain control Dressing / Incision Call your doctor if your incision/area has: Continuous Slow Oozing, Sudden Increased Bleeding, Increased Pain/ Swelling, Increased Redness and Foul Smelling Discharge Call your doctor if you observe: Fever of 101 or Higher Remove Dressing in: 2 days Cleanse incision/area with: Soap & Water Follow Up Care Please Follow Up With: Humberto Leigh MD When: as needed [phone] Test Results: Test results from this visit will be discussed in further detail at your follow- up appointment, if applicable. Discharge Plan Admission Attending Provider: Humberto Leigh Primary Care Provider: Virgilio Slaughter Instructions Print Language: Romanian Discharge Orders/Prescriptions Prescriptions: No Action losartan 100 mg tablet 100 mg PO DAILY Qty: 90 1RF hydrochlorothiazide 25 mg tablet 25 mg PO QAM Qty: 90 1RF clopidogrel 75 mg tablet 75 mg PO DAILY Qty: 90 1RF Patient Comments: STOP 5 DAYS PRIOR TO PROCEDURE-LAST DOSE 09/11/2024 ondansetron 8 mg tablet,disintegrating 8 mg PO Q8H PRN (Reason: nausea and vomiting) Qty: 30 2RF lidocaine-prilocaine 2.5-2.5 % cream 1 applic topical ONCE PRN (Reason: port access) 30 Days Qty: 30 2RF prochlorperazine maleate 10 mg tablet 10 mg PO Q6H PRN (Reason: nausea and vomiting) Qty: 30 2RF potassium iodide 65 mg tablet 130 mg PO QDAY PRN (Reason: pain) carvedilol 6.25 mg tablet 6.25 mg PO DAILY Qty: 90 1RF levothyroxine 150 mcg tablet 150 mcg PO DAILY Qty: 120 1RF Rx Instructions: Take 150 mcg 6 days a week and 225 mcg 1 day a week. atorvastatin 40 mg tablet 40 mg PO DAILY Qty: 90 1RF Referrals / Follow Up: Virgilio Slaughter MD [Primary Care Provider] - Disposition Disposition (needs filled in before D/C Order can be placed): Home, Self Care
--- NOTE | 2024-09-17 09:40 | RAD_ITS ---
EXAM: AP UPRIGHT PORTABLE CHEST CLINICAL HISTORY: Checking for line placement. COMPARISON: CT chest dated 07/17/2024. TECHNIQUE: Single frontal portable projection of the chest. FINDINGS: Lungs: Lungs clear of pneumonia and congestion. An area of discoid atelectasis, left upper lobe. Pleura: No pleural effusions, thickening, or pneumothorax. Heart: Normal in size and configuration. Mediastinum/Ingrid: Unremarkable. Great vessels: Aorta is atherosclerotic and tortuous. Bones/soft tissues: Unremarkable. A right Port-A-Cath is noted. RAD/CXR for Line Placement IMPRESSION: A right-sided Port-A-Cath. No active cardiopulmonary disease. Reading Location: [place] [address]
--- NOTE | 2024-09-17 09:43 | PCM.POST.ANE ---
Anesthesia: Postop Eval I Current Vital Signs Temperature: 98.6 F Pulse Rate: 78 Blood Pressure: 100/56 Respiratory Rate: 20 Pulse Ox: 95 Oxygen Delivery Method: Room Air Assessment Airway patent: Yes Spontaneous unlabored respirations: Yes Mental status: Awake and Calm nausea: No Vomiting: No Anesthesia Complication: No Fluid Hydration Crystalloid volume administer (ml): 400 Total IV fluid infused: 400 Progress Note Anesthesia document: Postop Eval 1 completed: Yes
--- NOTE | 2024-09-17 11:06 | POSTOPAN2_ITS ---
Anesthesia Postop Eval I Sum Postop Eval Completion status Anesthesia document: Postop Eval 1 completed: Yes Anesthesia Postop Eval I Summary Anesthesia Postop Eval I Summary: Anesthesia Postop Eval I: Assessment Summary Airway patent Yes 09/17/24 09:44 [email or web address] Spontaneous unlabored Yes 09/17/24 09:44 [email or web address] respirations Mental status Awake,Calm 09/17/24 09:44 [email or web address] nausea No 09/17/24 09:44 [email or web address] Vomiting No 09/17/24 09:44 [email or web address] Anesthesia Postop Eval I: Fluid Summary Crystalloid volume administer 400 09/17/24 09:44 [email or web address] (ml) Colloids volume administered ( ml) Blood Product volume administered (ml) Total IV fluid infused 400 09/17/24 09:44 [email or web address] Anesthesia Postop Eval I: Summary Notes Anesthesia Complication No 09/17/24 09:44 [email or web address] Anesthesia Complication Comment: Post-operative progress note Anesthesia: Postop Eval II Evaluation Mental status: Awake Pain Level: 1 nausea: No Vomiting: No
--- NOTE | 2024-09-17 11:06 | PCM.POSTANE2 ---
Anesthesia Postop Eval I Sum Postop Eval Completion status Anesthesia document: Postop Eval 1 completed: Yes Anesthesia Postop Eval I Summary Anesthesia Postop Eval I Summary: Anesthesia Postop Eval I: Assessment Summary Airway patent Yes 09/17/24 09:44 [email or web address] Spontaneous unlabored Yes 09/17/24 09:44 [email or web address] respirations Mental status Awake,Calm 09/17/24 09:44 [email or web address] nausea No 09/17/24 09:44 [email or web address] Vomiting No 09/17/24 09:44 [email or web address] Anesthesia Postop Eval I: Fluid Summary Crystalloid volume administer 400 09/17/24 09:44 [email or web address] (ml) Colloids volume administered ( ml) Blood Product volume administered (ml) Total IV fluid infused 400 09/17/24 09:44 [email or web address] Anesthesia Postop Eval I: Summary Notes Anesthesia Complication No 09/17/24 09:44 [email or web address] Anesthesia Complication Comment: Post-operative progress note Anesthesia: Postop Eval II Evaluation Mental status: Awake Pain Level: 1 nausea: No Vomiting: No
== END 2024-09-17 10:32 | disposition home or self-care (01) ==
LOC: SDC 07:22 → AC 07:25
PROVIDERS: PCP Internal Medicine; Referring Provider Internal Medicine; Visit Provider Surgery
PROC: (CPT 36561; principal; 2024-09-17 08:45)
DX: C19 Malignant neoplasm of rectosigmoid junction (principal); I10 Essential (primary) hypertension; E78.5 Hyperlipidemia, unspecified
CPT/HCPCS: 36561; 00532; 71045; 77001; A4216; C1788; J2405

== ENCOUNTER → 2024-12-23 | Outpatient (CLI) | payer MEDICARE, SELFPAY ==
--- NOTE | 2024-12-23 13:18 | CT_ITS ---
PROCEDURE: CT CHEST, ABD, PEL W/CONTRAST 12/23/2024 REASON FOR EXAM: RESTAGING OF COLON CANCER TECHNIQUE: Chest, abdomen and pelvis CT with intravenous contrast. Coronal and Sagittal reconstruction series were provided. One or more dose reduction techniques were used (e.g., Automated exposure control, adjustment of the mA and/or kV according to patient size, use of iterative reconstruction technique. PATIENT PREPARATION: Per protocol ORAL CONTRAST: Yes CONTRAST: Isovue-300 VOLUME: 98 mL RADIATION DOSE SUMMARY: CTDlvol: 64.25 mGy DLP: 1533.41 mGycm COMPARISON: CT chest abdomen and pelvis with contrast, 07/17/2024 FINDINGS: CT CHEST: Neck base: The thyroid gland is diminutive or may be surgically absent. There is no supraclavicular lymphadenopathy. Mediastinum: No abnormal masses or lymphadenopathy. Heart and Vasculature: The heart is enlarged. There is no pericardial effusion. There is mild calcific vascular disease of the coronary arteries and thoracic aorta. Airways, lungs and pleura: There are apical pulmonary blebs bilaterally. There is pleural-parenchymal scarring in the anterior medial basal segment of the lower lobe, in the inferior lingular segments of the left lung. There are no pulmonary nodules or masses. Chest wall: There is a chemotherapy port in the right upper chest wall with the tip in the superior vena cava via the right internal jugular vein. There is no axillary lymphadenopathy. There is mild multilevel degenerative disc disease of the mid and lower thoracic spine. There is mild dextroscoliosis of the upper thoracic spine and levoscoliosis of the lower thoracic spine. CT ABDOMEN/PELVIS: Liver: There is a 3 mm cyst in the posterior segment of the right hepatic lobe. Gallbladder: There is a 19 mm gallstone. Spleen: Normal. Pancreas: Normal. Adrenals: Normal. Kidneys: Normal. Bladder: Normal unenhanced appearance. Reproductive Organs: The uterus is surgically absent. The ovaries are normal. There is no free fluid in the pelvis. There is no inguinal lymphadenopathy. Bowel: There is a staple line at the sigmoid rectal junction. The anastomosis is unremarkable. The gastrointestinal tract is otherwise unremarkable. Appendix: Normal. Lymph nodes: There is no mesenteric, retroperitoneal or pelvic lymphadenopathy. Vasculature: There is calcific vascular disease of the abdominal aorta. There is ectasia of the infrarenal abdominal aorta without aneurysm. The inferior vena cava and portal venous system are normal. Peritoneum / Retroperitoneum/abdominal wall: There are no abnormal intra or retroperitoneal masses or fluid collections. Bones: There is multilevel degenerative disc disease of the lumbar spine most severe at the L3-4 and L4-5 levels. There is dextroscoliosis of the lumbar spine. CT/CT Chest, Abd, Pel w/Contrast IMPRESSION: 1. No evidence of metastatic disease. 2. The distal colonic anastomosis is unremarkable. 3. Cholelithiasis. 4. Cardiomegaly. 5. Other findings as noted. There is no significant change. Reading Location: [place] [id number]
--- OUTSIDE RECORDS SUMMARY | 2024-12-23 21:39 | XMS RPT_ITS | CCD ---
Author Organization [facility] [place] CliniSymd Care Team Providers Care Tugboat Mate Name Role Phone MORRO ALVARADO DPKylee Attending Unavailable CLAYTON CIFUENTES Consulting Unavailable MORRO ALVARADO DPM Admitting Unavailable MORRO ALVARADO DPM Primary Care Unavailable PROVIDER, UNKNOWN Consulting Unavailable PROVIDER, UNKNOWN Consulting Unavailable PROVIDER, UNKNOWN Consulting Unavailable RHONA, DR SALMA Coats Admitting Unavaila ble RHONA, DR SALMA Coats Primary Care Unavaila ble RHONA, DR SALMA Coats Attending Unavaila ble ANTONI SLAUGHTER Consulting Unavailable PROVIDER, UNKNOWN Consulting Unavailable Colby MIXING MACHINE TENDER CORK GASKET, MIXING MACHINE TENDER CORK GASKET-C Gideon Attending Provider [phone] Dr. Antoni Slaughter Primary Care Provider [phone] Dr. Antoni Slaughter Referring Provider [phone] Colby MIXING MACHINE TENDER CORK GASKET, MIXING MACHINE TENDER CORK GASKET-C Gideon Attending Provider [phone] Dr. Antoni Slaughter Primary Care Provider [phone] Dr. Antoni Slaughter Referring Provider [phone] Antoni Slaughter MD Primary Care Provider [phone] Antoni Slaughter MD Primary Care Provider Dr. Antoni Slaughter MD Attending Provider [phone] Dr. Antoni Slaughter MD Referring Provider [phone] Sofia Hicks Attending Provider Dr. Rivera Townsend DO Attending Provider Dr. Rivera Townsend DO Other Provider Dr. Dayton Lewis MD Attending Provider Sofia Hicks Referring Provider Dr. Dayton Lewis MD Referring Provider DAYDAY FLORESZABETH Attending Unavailable SELF Referring Unavailable OLEGHE, EFEWONGBE B Primary Care Unavailable WOOD, VIBHA Referring Unavailable OLEGHE, EFEWONGBE B Primary Care Unavailable WOOD, VIBHA Referring Unavailable OLEGHE, EFEWONGBE B Primary Care Unavailable MIHIR MAYESE Referring Unavailable OLEGHE, EFEWONGBE B Primary Care Unavailable WOOD, VIBHA Admitting Unavailable WOOD, VIBHA Attending Unavailable WOOD, VIBHA Referring Unavailable OLEGHE, EFEWONGBE B Primary Care Unavailable WOOD, VIBHA Attending Unavailable OLEGHE, EFEWONGBE B Primary Care Unavailable WOOD, VIBHA Attending Unavailable SELF Referring Unavailable OLEGHE, EFEWONGBE B Primary Care Unavailable Alejandrae , Dr. Poole Primary Care Provider Dr. Antoni Slaughter MD Referring Provider Sofia Hicks Attending Provider Dr. Rivera Townsend DO Attending Provider Dr. Rivera Townsend DO Other Provider Dr. Dayton Lewis MD Attending Provider Sofia Hicks Referring Provider Dr. Dayton Lewis MD Referring Provider Dr. Antoni Slaughter MD Attending Provider Dr. Antoni Leach MD Attending Provider Dr. Humberto Leigh MD Attending Provider Emilee MATOS-CCeci Attending Provider Dr. Humberto Leigh MD Other Provider Dr. Antoni Slaughter MD Primary Care Provider Sofia Hicks Attending Provider Sofia Hicks Referring Provider Kasandra LOERA, Dr. Poole Referring Provider Joshua LOERA, Dr. Burris Attending Provider Joshua LOERA, Dr. Burris Referring Provider Kasandra LOERA, Dr. Poole Primary Care Provider Joshua LOERA, Dr. Burris Attending Provider [phone] Joshua LOERA, Dr. Burris Referring Provider Joshua LOERA, Dr. Burris Attending Provider Joshua LOERA, Dr. Burris Referring Provider Oleghe, Efewongbe Referring Unavailable Oleghe, Efewongbe Primary Care Unavailable Humberto Leigh Attending Unavailable Oleghe, Efewongbe Primary Care Unavailable Oleghe, Efewongbe Referring Unavailable Antoni Leach Attending Unavailable Sofia Cuadra Referring Unavailable Oleghe, Efewongbe Primary Care Unavailable Dayton Lewis Attending Unavailable Oleghe, Efewongbe Attending Unavailable Oleghe, Efewongbe Primary Care Unavailable Oleghe, Efewongbe Referring Unavailable Oleghe, Efewongbe Referring Unavailable Oleghe, Efewongbe Primary Care Unavailable Ceci Hebert NP Attending Unavailable Oleghe, Efewongbe Primary Care Unavailable Dayton Lewis Referring Unavailable Dayton Lewis Attending Unavailable Oleghe, Efewongbe Primary Care Unavailable Dayton Lewis Referring Unavailable Dayton Lewis Attending Unavailable Sofia Cuadra Referring Unavailable Sofia Cuadra Attending Unavailable Oleghe, Efewongbe Primary Care Unavailable Oleghe, Efewongbe Attending Unavailable Oleghe, Efewongbe Primary Care Unavailable Oleghe, Efewongbe Referring Unavailable Rivera Townsend Attending Unavailable Oleghe, Efewongbe Primary Care Unavailable Oleghe, Efewongbe Referring Unavailable Oleghe, Efewongbe Referring Unavailable Oleghe, Efewongbe Primary Care Unavailable Antoni Leach Attending Unavailable Oleghe, Efewongbe Primary Care Unavailable Oleghe, Efewongbe Referring Unavailable JagkarAntoni mcginnis Attending Unavailable Oleghe, Efewongbe Referring Unavailable Oleghe, Efewongbe Primary Care Unavailable Emilee MIXING MACHINE TENDER CORK GASKETCeci Attending Unavailable Oleghe, Efewongbe Primary Care Unavailable Oleghe, Efewongbe Referring Unavailable Antoni Leach Attending Unavailable FriendRivera Attending Unavailable FriendRivera Consulting Unavailable Oleghe, Efewongbe Primary Care Unavailable Oleghe, Efewongbe Referring Unavailable Oleghe, Efewongbe Referring Unavailable Oleghe, Efewongbe Primary Care Unavailable Humberto Leigh Attending Unavailable Humberto Leigh Consulting Unavailable Oleghe, Efewongbe Referring Unavailable Emilee MIXING MACHINE TENDER CORK GASKETCeci Attending Unavailable Oleghe, Efewongbe Primary Care Unavailable Oleghe, Efewongbe Attending Unavailable Oleghe, Efewongbe Primary Care Unavailable Oleghe, Efewongbe Referring Unavailable Sofia Cuadra Attending Unavailable Oleghe, Efewongbe Primary Care Unavailable Oleghe, Efewongbe Referring Unavailable Oleghe, Efewongbe Referring Unavailable Oleghe, Efewongbe Primary Care Unavailable Emilee MIXING MACHINE TENDER CORK GASKETCeci Attending Unavailable Oleghe, Efewongbe Attending Unavailable Oleghe, Efewongbe Referring Unavailable Oleghe, Efewongbe Primary Care Unavailable Oleghe, Efewongbe Referring Unavailable Oleghe, Efewongbe Primary Care Unavailable Emilee MIXING MACHINE TENDER CORK GASKETCeci Attending Unavailable Oleghe, Efewongbe Referring Unavailable Oleghe, Efewongbe Primary Care Unavailable Humberto Leigh Attending Unavailable Oleghe, Efewongbe Primary Care Unavailable Antoni Leach Attending Unavailable Oleghe, Efewongbe Referring Unavailable Allergies Allergy Classification Reported Allergen(s) Allergy Type Date of Onset Reaction(s) Facility (4 sources) oxaliplatin Drug Allergy 5 Chest tightness [facility] (1 source) oxaliplatin Drug Allergy 5 [facility] Repository Medications Current Medications Medication Drug Class(es) Dates Sig (Normalized) Sig (Original) atorvastatin 40 mg oral tablet (20 sources) HMG-CoA Reductase Inhibitor Start: 08-04-2024 take 1 tablet by mouth once daily Atorvastatin 40 mg tablet Active 40 mg PO DAILY August 04, 2024 11:25pm Start: 2023 End: 08-04-2024 take 1 tablet by mouth once daily Atorvastatin 20 mg tablet Discontinued 20 mg PO DAILY May 05, 2024 5:37pm August 04, 2024 11:26pm hydroCHLOROthiazide 25 mg oral tablet (20 sources) Thiazide Diuretic Start: 07-28-2022 End: 11-01-2023 take 1 tablet by mouth once daily in the morning Hydrochlorothiazide 25 mg tablet Active 25 mg PO EVERY MORNING November 01, 2023 5:27pm Start: 07-22-2021 End: 07-28-2022 take 1 tablet by mouth once daily in the morning Hydrochlorothiazide 12.5 mg tablet Discontinued 12.5 mg PO EVERY MORNING January 11, 2022 4:48pm July 28, 2022 9:24am levothyroxine sodium 0.15 mg oral tablet (20 sources) l-Thyroxine Start: 2024 Levothyroxine 150 mcg tablet Active 150 ug PO DAILY 2024 5:41pm Take 150 mcg 5 days a week and 225 mcg 2 days a week. Start: 08-04-2024 End: 2024 Levothyroxine 150 mcg tablet Discontinued 150 ug PO DAILY August 04, 2024 11:24pm 2024 5:42pm Take 150 mcg 6 days a week and 225 mcg 1 day a week. Start: 07-27-2021 End: 08-04-2024 take 1 tablet by mouth once daily Levothyroxine 150 mcg tablet Discontinued 150 ug PO DAILY November 01, 2023 5:27pm August 04, 2024 11:26pm Start: 06-29-2020 End: 07-27-2021 take 1 tablet by mouth once daily Levothyroxine 137 mcg tablet Discontinued 137 ug PO DAILY 60 June 29, 2020 9:20am July 27, 2021 2:45pm Start: 03-04-2020 End: 06-29-2020 take 1 tablet by mouth once daily Levothyroxine 125 mcg tablet Discontinued 125 ug PO DAILY March 04, 2020 10:31am June 29, 2020 9:21am Start: 03-04-2020 End: 03-04-2020 Levothyroxine 125 mcg tablet Discontinued NMA PO March 04, 2020 12:00am March 04, 2020 10:34am take [address] [facility] once daily before breakfast levothyroxine 150 mcg cap Take 150 mcg by mouth daily before breakfast. Active lidocaine 25 mg/ml / prilocaine 25 mg/ml topical cream (5 sources) Antiarrhythmic, Amide Local Anesthetic Start: 09-09-2024 Lidocaine-Prilocaine 2.5-2.5 % cream Active 1 NMA TOPICAL ONCE as needed for port access September 09, 2024 12:00am metroNIDAZOLE 500 mg oral tablet (5 sources) Nitroimidazole Antimicrobial Start: 08-01-2024 take 2 tablets by mouth once daily metroNIDAZOLE (FLAGYL) 500 mg tablet Indications: Rectal cancer (HCC) Take two tabs by mouth at 1pm, 3pm, and 11pm the day prior to surgery. 6 tablet 08/01/2024 Active neomycin sulfate 500 mg oral tablet (5 sources) Aminoglycoside Antibacterial Start: 08-01-2024 take 2 tablets by mouth once daily neomycin 500 mg tablet Indications: Rectal cancer (HCC) Take two tabs by mouth at 1pm, 3pm, and 11pm the day prior to the surgery. 6 tablet 08/01/2024 Active ondansetron 8 mg disintegrating oral tablet (5 sources) Serotonin-3 Receptor Antagonist Start: 09-09-2024 take 1 tablet by mouth every eight hours as needed for nausea and vomiting Ondansetron 8 mg tablet,disintegrating Active 8 mg PO Q8H as needed for nausea and vomiting September 09, 2024 12:00am oxyCODONE hydrochloride 5 mg oral tablet (1 source) Opioid Agonist Start: 08-15-2024 End: 08-20-2024 take 1 tablet by mouth every eight hours as needed for pain oxyCODONE IR (ROXICODONE) 5 mg immediate release tablet Indications: Rectal cancer (HCC) Take 1 tablet by mouth every 8 hours as needed for pain for up to 5 days. 8 tablet 08/15/2024 1:31 PM EST 08/15/2024 08/20/2024 Active potassium iodide 65 mg oral tablet (5 sources) Start: 09-08-2024 Potassium Iodide 65 mg tablet Active 130 mg PO daily as needed for pain September 08, 2024 12:00am prochlorperazine 10 mg oral tablet (5 sources) Phenothiazine Start: 09-09-2024 take 1 tablet by mouth every six hours as needed for nausea and vomiting Prochlorperazine Maleate 10 mg tablet Active 10 mg PO EVERY 6 HOURS as needed for nausea and vomiting September 09, 2024 12:00am promethazine hydrochloride 25 mg oral tablet (8 sources) Phenothiazine Start: 08-01-2024 take 1 tablet by mouth every four hours as needed for nausea promethazine (PHENERGAN) 25 mg tablet Indications: Rectal cancer (HCC) Take 1 tab by mouth every 4 hours as needed for nausea. 5 tablet 08/01/2024 Active Completed/Discontinued Medications Medication Drug Class(es) Dates Sig (Normalized) Sig (Original) amoxicillin 875 mg / clavulanate 125 mg oral tablet (8 sources) Penicillin-class Antibacterial Start: 06-28-2020 End: 07-22-2021 Amoxicillin-Pot Clavulanate 875-125 mg tablet Discontinued 1 {tbl} PO Q12H June 28, 2020 1:00am July 22, 2021 10:58am Start: 06-28-2020 End: 07-22-2021 take 1 tablet by mouth every twelve hours Amoxicillin-Pot Clavulanate Discontinued 1 TABLET PO Q12H June 28, 2020 1:00am July 22, 2021 10:58am carvedilol 6.25 mg oral tablet (20 sources) alpha-Adrenergic Jill, beta-Adrenergic Ijll Start: 03-04-2020 End: 10-27-2024 take 1 tablet by mouth once daily Carvedilol 6.25 mg tablet Discontinued 6.25 mg PO DAILY May 02, 2024 12:20pm October 27, 2024 8:16am Start: 03-04-2020 End: 05-16-2021 Carvedilol 6.25 mg tablet Di scontinued NMA PO March 04, 2020 12:00am May 16, 2021 5:38pm clopidogrel 75 mg oral tablet (20 sources) [id number] Platelet Inhibitor Start: 07-22-2021 End: 11-01-2023 take 1 tablet by mouth once daily Clopidogrel 75 mg tablet Discontinued 75 mg PO DAILY January 11, 2022 4:48pm July 28, 2022 9:24am losartan potassium 100 mg oral tablet (20 sources) Angiotensin 2 Receptor Jill Start: 03-04-2020 End: 11-01-2023 take 1 tablet by mouth once daily Losartan 100 mg tablet Discontinued 100 mg PO DAILY 90 July 27, 2021 9:39am July 28, 2022 9:24am Start: 03-04-2020 End: 03-04-2020 Losartan 50 mg tablet Discon tinued NMA PO March 04, 2020 12:00am March 04, 2020 10:34am Start: 03-04-2020 End: 03-04-2020 Losartan Discontinued EACH P O March 04, 2020 12:00am March 04, 2020 10:34am naproxen sodium 220 mg oral capsule (8 sources) Nonsteroidal Anti-inflammatory Drug Start: 03-04-2020 End: 06-25-2024 take 1 capsule by mouth twice daily as needed Naproxen Sodium (Aleve) 220 mg capsule Discontinued 220 mg PO TWICE A DAY as needed March 04, 2020 12:00am June 25, 2024 12:11pm spironolactone 25 mg oral tablet (8 sources) Aldosterone Antagonist Start: 03-04-2020 End: 07-22-2021 Spironolactone 25 mg tablet Discontinued NMA PO March 04, 2020 12:00am July 22, 2021 10:58am Start: 03-04-2020 End: 07-22-2021 Spironolactone Discontinued EACH PO March 04, 2020 12:00am July 22, 2021 10:58am traMADol hydrochloride 50 mg oral tablet (8 sources) Opioid Agonist Start: 06-30-2020 End: 07-22-2021 take 1 tablet by mouth three times daily as needed for pain Tramadol 50 mg tablet Discontinued 50 mg PO THREE TIMES A DAY as needed for pain June 30, 2020 1:00am July 22, 2021 10:59am Vitamin B Complex (B Complex-Vitamin B12) tablet (8 sources) Start: 07-22-2021 End: 07-28-2022 Vitamin B Complex (B Complex-Vitamin B12) tablet Discontinued 1 {tbl} PO DAILY July 22, 2021 1:00am July 28, 2022 8:54am Start: 07-22-2021 End: 07-28-2022 Vitamin B Complex (B Complex -Vitamin B12) tablet Discontinued 1 {tbl} PO DAILY July 22, 2021 12:00am July 28, 2022 7:54am Start: 07-22-2021 End: 07-28-2022 take 1 tablet by mouth once daily Vitamin B Complex (B Complex-Vitamin B12) tablet Discontinued 1 TABLET PO DAILY July 22, 2021 1:00am July 28, 2022 8:54am Start: 07-22-2021 End: 07-28-2022 take 1 tablet by mouth once daily Vitamin B Complex (B Complex-Vitamin B12) tablet Discontinued 1 TABLET PO DAILY July 22, 2021 12:00am July 28, 2022 7:54am Problems Active Problems Problem Classification Problem Date Documented Da te Episodic/Chronic Administrative/social admission (13 sources) Patient encounter status; Translations: [Other specified counseling] Onset: 5 08-07-2024 Episodic Cancer of colon (2 sources) Malignant tumor of colon; Translations: [Malignant neoplasm of colon, unspecified] Onset: 5 06-26-2024 Chronic Cancer of rectum and anus (20 sources) Malignant tumor of rectum; Translations: [Malignant neoplasm of rectum] Onset: 5 07-18-2024 Chronic Disorders of lipid metabolism (20 sources) Hyperlipidemia; Translations: [Hyperlipidemia, unspecified] Onset: 5 07-18-2024 Chronic E Codes: Adverse effects of medical drugs (1 source) Adverse effect of antineoplastic and immunosuppressive drugs, initial encounter; Translations: [Adverse effect of antineoplastic and immunosuppressive drugs, initial encounter] Onset: 5 Episodic Essential hypertension (20 sources) Hypertensive disorder; Translations: [Essential (primary) hypertension] Onset: 5 06-28-2020 Chronic Maintenance chemotherapy; radiotherapy (15 sources) Patient encounter status; Translations: [Encounter for antineoplastic chemotherapy] Onset: 5 10-20-2024 Chronic Nausea and vomiting (9 sources) Chemotherapy-induced nausea and vomiting; Translations: [Nausea with vomiting, unspecified] Onset: 5 09-29-2024 Episodic Other gastrointestinal disorders (12 sources) Chronic constipation; Translations: [Other constipation] Episodic Other nutritional; endocrine; and metabolic disorders (3 sources) Obese class I; Translations: [Obesity, Class I, BMI 30-34.9] Onset: 5 08-11-2024 Chronic Other skin disorders (10 sources) Actinic keratosis; Translations: [Actinic keratosis] 11-04-2024 Episodic Other skin disorders (1 source) Actinic keratosis; Translations: [Actinic keratosis] Onset: 5 Episodic Peripheral and visceral atherosclerosis (16 sources) Peripheral vascular disease; Translations: [Peripheral vascular disease, unspecified] Onset: 5 08-07-2024 Chronic Residual codes; unclassified (7 sources) Nicotine user; Translations: [Tobacco use] Onset: 5 08-07-2024 Episodic Residual codes; unclassified (1 source) Tobacco use; Translations: [Nicotine use] Onset: 5 Episodic Secondary malignancies (20 sources) Regional lymph node metastasis present ; Translations: [Secondary and unspecified malignant neoplasm of lymph node, unspecified] 09-04-2024 Chronic Secondary malignancies (1 source) Secondary and unspecified malignant neoplasm of lymph node, unspecified; Translations: [Secondary and unspecified malignant neoplasm of lymph node, unspecified] Onset: 5 Chronic Thyroid disorders (20 sources) Hypothyroidism; Translations: [Hypothyroidism, unspecified] Onset: 5 07-22-2021 Chronic Unclassified (2 sources) Blood present in stool; Translations: [K59.09 - Other constipation,K92.1 - Melena] Unclassified (1 source) Post Op Onset: 5 Unclassified (10 sources) C19 - Malignant neoplasm of rectosigmoid junction,C18.9 - Malignant neoplasm of colon, unspecified Past or Other Problems Problem Classification Problem Date Documented Da te Episodic/Chronic Gastrointestinal hemorrhage (8 sources) Hematochezia; Translations: [Melena] Onset: 04-30-2024 04-30-2024 Episodic Other gastrointestinal disorders (2 sources) Other constipation; Translations: [Other constipation] Onset: 06-17-2024 Episodic Other gastrointestinal disorders (1 source) Constipation, unspecified; Translations: [Constipation, unspecified] Onset: 07-21-2024 Episodic Results Test Name Value Interpretation Reference Range Facility Absolute lymphocyte countOrd ered By: Antoni Leach on 12-01-2024 Lymphocytes Auto (Unsp spec) [#/Vol] 1.59 10*3/uL 0.83-4.51 [facility] Absolute neutrophil countOrd ered By: Sarahvickie Laech on 12-01-2024 Neutrophils (Bld) [#/Vol] 2.9 10*3/uL 2.0-7.7 [facility] Anion gap in Serum or Plasma Ordered By: Antoni Leach on 12-01-2024 Anion gap [Moles/Vol] 14 mmol/L 5-15 [facility] Automated lymphocyte count a s percentage of total leukocytesOrdered By: Antoni Leach on 12-01-2024 Lymphocytes/100 WBC Auto (Unsp spec) 29.0 % - [facility] BUN/creatinine [facility]Ordered By[facility] on 12-01-2024 Urea nitrogen/Creatinine [Mass ratio] 15.8 mg/mg 10-20 [facility] Basophil percentageOrdered B y: Antoni Leach on 12-01-2024 Basophils/100 WBC (Bld) 1.1 % High 0-1 [facility] Bilirubin, totalOrdered By: Antoni Leach on 12-01-2024 Bilirubin [Mass/Vol] 0.42 mg/dL 0.00-1.30 [facility] Blood manual differential co mment interpretation (narrative result)Ordered By: Antoni Leach on 12-01-2024 Manual differential comment Jose David (Bld) [Interp] SCANNED [facility] CBC W/Diff, Automatedon 11-10 Anisocytosis Ql (Bld) 2+ Normal [facility] Comment on above: Performed By: #### L 100.0100, L500.4050, [id number] ####[facility] [address] [place], [place], [id number] ATYPICAL LYMPH 1+ Normal [facility] Comment on above: Performed By: #### L 100.0100, [id number], [id number] ####[facility] [address] [place], [address] SMEAR COMMENT SCANNED Normal [facility] Comment on above: Performed By: #### L 100.0100, [id number], [id number] ####[facility] [address] [place], [address] Carbon dioxide, total [Moles /volume] in Central venous bloodOrdered By: Antoni Leach on 12-01-2024 CO2 [Moles/Vol] 21.3 mmol/L 21.0-32.0 [facility] Chloride assayOrdered By: Lisa Leach on 12-01-2024 Chloride [Moles/Vol] 104 mmol/L 98-108 [facility] Comprehensive Metabolic Prof ilon 12-01-2024 Albumin [Mass/Vol] 3.9 g/dL Normal 3.4-4.8 [facility] Comment on above: Performed By: #### L 100.0100, [id number], [id number] ####[facility] [address] [place], [address] Albumin/Globulin [Mass ratio] 1.5 {ratio} Normal 0.9-2.4 [facility] Comment on above: Performed By: #### L 100.0100, L500.4050, [id number] ####[facility] [address] [place], [address] ALK PHOS 127 U/L High 35-104 [facility] Comment on above: Performed By: #### L 100.0100, L500.4050, [id number] ####[facility] [address] [place], [address] ALT [Catalytic activity/Vol] 18 U/L Normal <=34 [facility] Comment on above: Performed By: #### L 100.0100, L500.4050, [id number] ####[facility] [address] [place], [address] AST [Catalytic activity/Vol] 20 U/L Normal <=31 [facility] Comment on above: Performed By: #### L 100.0100, [id number], [id number] ####[facility] [address] [place], [address] Bilirubin [Mass/Vol] 0.42 mg/dL Normal 0.00-1.30 [facility] Comment on above: Performed By: #### L 100.0100, [id number], [id number] ####[facility] [address] [place], [address] BUN/CRE 15.8 RATIO Normal 10-20 [facility] Comment on above: Performed By: #### L 100.0100, [id number], [id number] ####[facility] [address] [place], [address] Calcium [Mass/Vol] 8.9 mg/dL Normal 7.6-11.0 [facility] Comment on above: Performed By: #### L 100.0100, [id number], [id number] ####[facility] [address] [place], [address] Chloride [Moles/Vol] 104 mmol/L Normal 98-108 [facility] Comment on above: Performed By: #### L 100.0100, [id number], [id number] ####[facility] [address] [place], [address] CO2 [Moles/Vol] 21.3 mmol/L Normal 21.0-32.0 [facility] Comment on above: Performed By: #### L 100.0100, [id number], [id number] ####[facility] [address] [place], [address] Creatinine [Mass/Vol] 0.98 mg/dL Normal 0.70-1.20 [facility] Comment on above: Performed By: #### L 100.0100, [id number], [id number] ####[facility] [address] [place], [address] ECRCL 66.45 ml/min Normal 50-250 [facility] Comment on above: Performed By: #### L 100.0100, [id number], [id number] ####[facility] [address] [place], [address] GAP 14 Normal 5-15 [facility] Comment on above: Performed By: #### L 100.0100, [id number], [id number] ####[facility] [address] [place], [address] GFR/1.73 sq M.predicted among non-blacks MDRD (S/P/Bld) [Vol rate/Area] 64 mL/min/{1.73_m2} Normal >60 [facility] Comment on above: Result Comment: mL/m in/1.73m2 CKD-EPI Creatinine Equation (2020) Performed By: #### L 100.0100, [id number], [id number] ####[facility] [address] [place], [address] Globulin (S) [Mass/Vol] 2.6 g/dL Normal 2.2-4.2 [facility] Comment on above: Performed By: #### L 100.0100, [id number], [id number] ####[facility] [facility] [address] [place], [address] Glucose [Mass/Vol] 118 mg/dL High 70-99 [facility] Comment on above: Performed By: #### L 100.0100, L500.4050, L501.5200 ####[facility] [address] [place], [address] Potassium [Moles/Vol] 3.8 mmol/L Normal 3.3-5.1 [facility] Comment on above: Performed By: #### L 100.0100, L500.4050, L501.5200 ####[facility] [address] [place], [address] Sodium [Moles/Vol] 140 mmol/L Normal 133-145 [facility] Comment on above: Performed By: #### L 100.0100, L500.4050, L501.5200 ####[facility] [address] [place], [address] T PROT 6.6 g/dL Normal 5.9-8.4 [facility] Comment on above: Performed By: #### L 100.0100, L500.4050, L501.5200 ####[facility] [address] [place], [address] Urea nitrogen [Mass/Vol] 15 mg/dL Normal 4-19 [facility] Comment on above: Performed By: #### L 100.0100, L500.4050, L501.5200 ####[facility] [address] [place], [address] Eosinophil percentageOrdered By: Antoni Leach on 12-01-2024 Eosinophils/100 WBC (Bld) 3.3 % 0-5 [facility] Erythrocyte distribution wid th ratioOrdered By: Antoni Leach on 12-01-2024 Erythrocyte distribution width (RBC) [Ratio] 20.3 % High 11.6-14.6 [facility] Erythrocyte distribution wid th standard deviationOrdered By: [facility] Le[facility] on 12-01-2024 Erythrocyte distribution width (RBC) [Ratio] 72.6 fl High 35.1-43.9 [facility] Glomerular filtration rate ( GFR) estimation/1.73 sq m using serum, plasma, or whole bOrdered By: Antoni Leach on 12-01-2024 GFR/1.73 sq M.predicted among non-blacks MDRD (S/P/Bld) [Vol rate/Area] 64 mL/min/{1.73_m2} >60 [facility] Comment on above: mL/min/1.73m2 CKD-EP I Creatinine Equation (2020) Hematocrit Auto (Bld) [Volum e fraction]Ordered By: Antoni Leach on 12-01-2024 Hematocrit (Bld) [Volume fraction] 32.0 % Low 37-47 [facility] Hemoglobin measurementOrdere d By: Antoni Leach on 12-01-2024 Hemoglobin (Bld) [Mass/Vol] 10.6 g/dL Low 12.0-15.0 [facility] Immature granulocytes/100 WB C Auto (Bld)Ordered By: [facility] Le[facility] on 12-01-2024 Immature granulocytes/100 WBC (Bld) 0.500 % 0.0-0.9 [facility] Comment on above: IG% - Immature Granu locytes (promyelocytes, myelocytes and metamyelocytes) > 1% indicates that a LEFT SHIFT is Present. Laboratory - Chemistry and C hemistry - challengeOrdered By: [facility] Le[facility] on 12-01-2024 AST [Catalytic activity/Vol] 20 U/L <32 [facility] Laboratory - Hematology and Cell countsOrdered By: [facility] 12-01-2024 Anisocytosis Ql (Bld) 2+ [facility] MCV (mean corpuscular volume ) determinationOrdered By: Antoni Leach on 12-01-2024 MCV (RBC) [Entitic vol] 98.2 fL 81-99 [facility] Magnesiumon 12-01-2024 Magnesium [Mass/Vol] 2.2 mg/dL Normal 1.5-2.2 [facility] Comment on above: Performed By: #### L 100.0100, L500.4050, L501.5200 ####[facility] [address] [place], [place], [id number] Magnesium measurement (mass/ volume)Ordered By: Antoni Leach on 12-01-2024 Magnesium (Unsp spec) [Mass/Vol] 2.2 mg/dL 1.5-2.2 [facility] Mean corpuscular hemoglobin (MCH) determinationOrdered By: Antoni Leach on 12-01-2024 MCH (RBC) [Entitic mass] 32.5 pg High 27.0-32.0 [facility] Mean corpuscular hemoglobin concentration (MCHC) determinationOrdered By: Antoni Leach on 12-01-2024 MCHC (RBC) [Mass/Vol] 33.1 g/dL 32-36 [facility] Mean platelet volume determi nationOrdered By: Antoni Leach on 12-01-2024 Platelet mean volume (Bld) [Entitic vol] 10.6 fL 6.2-12.0 [facility] Monocyte percentageOrdered B y: Antoni Leach on 12-01-2024 Monocytes/100 WBC (Bld) 13.7 % High 0-10 [facility] Neutrophil percentageOrdered By: Antoni Leach on 12-01-2024 Neutrophils/100 WBC (Bld) 52.4 % 47-70 [facility] Nucleated red blood cell per centageOrdered By: Antoni Leach on 12-01-2024 Nucleated RBC/100 WBC (Bld) [Ratio] 0 % 0-5 [facility] Oncology Visit Reporton 11-10 Oncology Visit Report [facility] [address] [place] [address] OFFICE VISIT Date of Service: 12/01/24956 MR#: [id number] Acct: [id number] Name: TRUDY CALLE Rep #: [id number] : 1960 From: Antoni Leach MD Age/Sex: 64/F [place] [facility] [place]: Signed HPI Subjective Date of Service 12/01/24 Chief Complaint Colon cancer History of Present Illness 63 YOF presented with hematochezia, had colonoscopy on 06/26/2024. It showed malignant partially obstructing tumor in the rectosigmoid, 8-10 centimeters from the anal verge. June 26, 2024 Sigmoid mass, biopsy: Invasive moderately differentiated adenocarcinoma Negative (no loss of mismatch protein; no microsatellite instability detected). July 04, 2024: Pelvic MRI: FINDINGS: * Circumferential 2.16 cm fungating mass invading all 3 layers of the wall of the distal sigmoid colon and rectosigmoid junction located 11 cm above the anal opening, see image #13/26 series 6. There is also extension of tumor through the outer covering of the distal sigmoid colon seen on image 12/26 series 6. This is also well visualized on the postcontrast image 22/44 series 14. 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 * No pelvic lymphadenopathy is present. * No marrow edema or lytic or blastic lesions or enhancing lesions are seen in the bony structures. * Bicornuate uterus noted. Unremarkable adnexa. Normal bilateral ovaries. Normal urinary bladder. Normal visualized small intestine. Normal remaining visualized colon. There is no pelvic fluid. There is no pelvic mass lesion or lymphadenopathy. Normal osseous structures. Normal abdominal wall. IMPRESSION: 1. Circumferential 2.16 cm fungating mass invading all 3 layers of the wall of the distal sigmoid colon and rectosigmoid junction located 11 cm above the anal opening, see image #13/26 series 6. There is also extension of tumor through the outer covering of the distal sigmoid colon seen on image 12/26 series 6. This is also well visualized on the postcontrast image 22/44 series 14. 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 There is also moderate diffuse thickening and edema and hyperenhancement of the inner mucosa and muscular portion of the wall of the entire rectum down to the anus most likely due to desmoplastic reaction from the above tumor. * High position: 10 to 15 cm above the anal sphincter * T3: tumor invades through the muscularis propria into the subserosa or into non-peritonealised perirectal tissues without reaching the mesorectal fascia or adjacent organs * Consultation with surgery/oncology recommended * Correlation with PET/CT imaging also recommended. * A CT of abdomen and pelvis with contrast can be obtained to evaluate the remaining structures for possible distal metastasis or involvement. PRIMARY TUMOR STAGING (T) Strictly speaking TNM staging, such as the [place] Joint Committee on Cancer (AJCC) 8th edition, does not subclassify T3. However, this subclassification does have the treatment and prognostic significance 7,8; tumors with a stage T3b or less confer a 5-year cancer-specific survival rate of 85%, whereas tumors with a stage T3c or greater have a 54% survival rate. * Tx: primary tumor cannot be assessed * T0: no evidence of primary tumor * Tis: carcinoma in situ: intraepithelial or invasion of lamina propria * T1: tumor invades submucosa * T2: tumor invades muscularis propria * MRI does not yet have the resolution capable of enabling differentiation of T1 and T2 lesions * T3: tumor invades through the muscularis propria into the subserosa or into non-peritonealised perirectal tissues without reaching the mesorectal fascia or adjacent organs * T4: tumor invades directly into other organs or structures and/or perforates visceral peritoneum Tumor location: * High position: 10 to 15 cm above the anal sphincter * Mid position: 5 to 10 cm above the anal sphincter * Low position: 0 to 5 cm above the anal sphincter Layers of the rectum/rectosigmoid colon: * Submucosa * Muscularis propria * Mucosal rectum * Mesorectal fascia Peritoneal space Adjacent and distal organs July 17, 2024 CT chest abdomen and pelvis: IMPRESSION: 1. Constipation. Apparent thickening (more content not included)... Normal [facility] Platelet countOrdered By: Lisa Leach on 12-01-2024 Platelets (Bld) [#/Vol] 208 10*3/uL 150-450 [facility] Potassium measurement (mass/ volume)Ordered By: Antoni Leach on 12-01-2024 Potassium (Unsp spec) [Mass/Vol] 3.8 mmol/L 3.3-5.1 [facility] RBC Auto (Bld) [#/Vol]Ordere d By: Antoni Leach on 12-01-2024 RBC (Bld) [#/Vol] 3.26 10*6/uL Low 4.2-5.4 [facility] Serum creatinine measurement (mass/volume)Ordered By: Antoni Leach on 12-01-2024 Creatinine [Mass/Vol] 0.98 mg/dL 0.70-1.20 [facility] Serum globulin measurementOr dered By: Antoni Leach on 12-01-2024 Globulin (S) [Mass/Vol] 2.6 g/dL 2.2-4.2 [facility] Serum glucose measurement (m ass/volume)Ordered By: Antoni Leach on 12-01-2024 Glucose [Mass/Vol] 118 mg/dL High 70-99 [facility] Serum or plasma alanine zhu otransferase (ALT) measurementOrdered By: Antoni Laech on 12-01-2024 ALT [Catalytic activity/Vol] 18 U/L <35 [facility] Serum or plasma albumin sourav urement (mass/volume)Ordered By: Antoni Leach on 12-01-2024 Albumin [Mass/Vol] 3.9 g/dL 3.4-4.8 [facility] Serum or plasma albumin/glob ulin mass ratioOrdered By: Antoni Leach on 12-01-2024 Albumin/Globulin [Mass ratio] 1.5 {ratio} 0.9-2.4 [facility] Serum or plasma alkaline omid sphatase measurementOrdered By: Antoni Leach on 12-01-2024 ALP [Catalytic activity/Vol] 127 U/L High 35-104 [facility] Serum or plasma calcium sourav urement (mass/volume)Ordered By: Antoni Leach on 12-01-2024 Calcium [Mass/Vol] 8.9 mg/dL 7.6-11.0 [facility] Serum or plasma urea nitroge n measurement (mass/volume)Ordered By: Antoni Leach on 12-01-2024 Urea nitrogen [Mass/Vol] 15 mg/dL 4-19 [facility] Sodium levelOrdered By: Sarah Leach on 12-01-2024 Sodium [Moles/Vol] 140 mmol/L 133-145 [facility] Total proteinOrdered By: Colby Leach on 12-01-2024 Protein [Mass/Vol] 6.6 g/dL 5.9-8.4 [facility] White blood cell (WBC) count Ordered By: Antoni Leach on 12-01-2024 WBC (Bld) [#/Vol] 5.5 10*3/uL 4.4-11.0 [facility] Absolute lymphocyte countOrd ered By: Antoni Leach on 11-17-2024 Lymphocytes Auto (Unsp spec) [#/Vol] 1.38 10*3/uL 0.83-4.51 [facility] Absolute neutrophil countOrd ered By: Antoni Leach on 11-17-2024 Neutrophils (Bld) [#/Vol] 2.3 10*3/uL 2.0-7.7 [facility] Anion gap in Serum or Plasma Ordered By: Antoni Leach on 11-17-2024 Anion gap [Moles/Vol] 12 mmol/L 5-15 [facility] Automated lymphocyte count a s percentage of total leukocytesOrdered By: [facility] Leach on 11-17-2024 Lymphocytes/100 WBC Auto (Unsp spec) 32.3 % 19-41 [facility] BUN/creatinine ratioOrdered By: [facility] Leach on 11-17-2024 Urea nitrogen/Creatinine [Mass ratio] 21.3 mg/mg High 10-20 [facility] Basophil percentageOrdered B y: Antoni Leach on 11-17-2024 Basophils/100 WBC (Bld) 0.7 % 0-1 [facility] Bilirubin, totalOrdered By: [facility] Leach on 11-17-2024 Bilirubin [Mass/Vol] 0.46 mg/dL 0.00-1.30 [facility] CBC W/Diff, Automatedon Anisocytosis Ql (Bld) 2+ Normal [facility] Comment on above: Performed By: #### L 100.9950, L503.6550, L500.4050, L100.0100, L501.2300, L3100.2300, L501.5200, L503.6030 #### [facility] [address] [place] [address]. [place], [address] Carbon dioxide, total [Moles /volume] in Central venous bloodOrdered By: Antoni Leach on 11-17-2024 CO2 [Moles/Vol] 21.9 mmol/L 21.0-32.0 [facility] Chloride assayOrdered By: Lisa Leach on 11-17-2024 Chloride [Moles/Vol] 107 mmol/L 98-108 [facility] Comprehensive Metabolic Prof ilon 11-17-2024 Albumin [Mass/Vol] 3.8 g/dL Normal 3.4-4.8 [facility] Comment on above: Performed By: #### L 100.9950, L503.6550, L500.4050, L100.0100, L501.2300, L3100.2300, L501.5200, L503.6030 #### [facility] [address] [place], [address] Albumin/Globulin [Mass ratio] 1.6 {ratio} Normal 0.9-2.4 [facility] Comment on above: Performed By: #### L 100.9950, L503.6550, L500.4050, L100.0100, L501.2300, L3100.2300, L501.5200, L503.6030 #### [facility] [address] [place], [place], [id number] ALK PHOS 118 U/L High 35-104 [facility] Comment on above: Performed By: #### L 100.9950, L503.6550, L500.4050, L100.0100, L501.2300, L3100.2300, L501.5200, L503.6030 #### [facility] [address] [place], [place], [address] ALT [Catalytic activity/Vol] 16 U/L Normal <=34 [facility] Comment on above: Performed By: #### L 100.9950, L503.6550, L500.4050, L100.0100, L501.2300, L3100.2300, L501.5200, L503.6030 #### [facility] [address] [place], [place], [id number] AST [Catalytic activity/Vol] 18 U/L Normal <=31 [facility] Comment on above: Performed By: #### L 100.9950, L503.6550, L500.4050, L100.0100, L501.2300, L3100.2300, L501.5200, L503.6030 #### [facility] [address] [place], [address] Bilirubin [Mass/Vol] 0.46 mg/dL Normal 0.00-1.30 [facility] Comment on above: Performed By: #### L 100.9950, L503.6550, L500.4050, L100.0100, L501.2300, L3100.2300, L501.5200, L503.6030 #### [facility] [address] [place], [address] BUN/CRE 21.3 RATIO High 10-20 [facility] Comment on above: Performed By: #### L 100.9950, L503.6550, L500.4050, L100.0100, L501.2300, L3100.2300, L501.5200, L503.6030 #### [facility] [address] [place], [address] Calcium [Mass/Vol] 9.0 mg/dL Normal 7.6-11.0 [facility] Comment on above: Performed By: #### L 100.9950, L503.6550, L500.4050, L100.0100, L501.2300, L3100.2300, L501.5200, L503.6030 #### [facility] [address] [place], [address] Chloride [Moles/Vol] 107 mmol/L Normal 98-108 [facility] Comment on above: Performed By: #### L 100.9950, L503.6550, L500.4050, L100.0100, L501.2300, L3100.2300, L501.5200, L503.6030 #### [facility] [address] [place], [address] CO2 [Moles/Vol] 21.9 mmol/L Normal 21.0-32.0 [facility] Comment on above: Performed By: #### L 100.9950, L503.6550, L500.4050, L100.0100, L501.2300, L3100.2300, L501.5200, L503.6030 #### [facility] [address] [place], [address] (104) Creatinine [Mass/Vol] 0.87 mg/dL Normal 0.70-1.20 [facility] Comment on above: Performed By: #### L 100.9950, L503.6550, L500.4050, L100.0100, L501.2300, L3100.2300, L501.5200, L503.6030 #### [facility] [address] [place], [address] (129) ECRCL 75.37 ml/min Normal 50-250 [facility] Comment on above: Performed By: #### L 100.9950, L503.6550, L500.4050, L100.0100, L501.2300, L3100.2300, L501.5200, L503.6030 #### [facility] [address] [place], [address] GAP 12 Normal 5-15 [facility] Comment on above: Performed By: #### L 100.9950, L503.6550, L500.4050, L100.0100, L501.2300, L3100.2300, L501.5200, L503.6030 #### [facility] [address] [place], [address] (430) GFR/1.73 sq M.predicted among non-blacks MDRD (S/P/Bld) [Vol rate/Area] 73 mL/min/{1.73_m2} Normal >60 [facility] Comment on above: Result Comment: mL/m in/1.73m2 CKD-EPI Creatinine Equation (2020) Performed By: #### L 100.9950, L503.6550, L500.4050, L100.0100, L501.2300, L3100.2300, L501.5200, L503.6030 #### [facility] [address] [place], [address] Globulin (S) [Mass/Vol] 2.4 g/dL Normal 2.2-4.2 [facility] Comment on above: Performed By: #### L 100.9950, L503.6550, L500.4050, L100.0100, L501.2300, L3100.2300, L501.5200, L503.6030 #### [facility] [address] [place], [address] Glucose [Mass/Vol] 102 mg/dL High 70-99 [facility] Comment on above: Performed By: #### L 100.9950, L503.6550, L500.4050, L100.0100, L501.2300, L3100.2300, L501.5200, L503.6030 #### [facility] [address] [place], [address] Potassium [Moles/Vol] 3.8 mmol/L Normal 3.3-5.1 [facility] Comment on above: Performed By: #### L 100.9950, L503.6550, L500.4050, L100.0100, L501.2300, L3100.2300, L501.5200, L503.6030 #### [facility] [address] [place], [address] Sodium [Moles/Vol] 141 mmol/L Normal 133-145 [facility] Comment on above: Performed By: #### L 100.9950, L503.6550, L500.4050, L100.0100, L501.2300, L3100.2300, L501.5200, L503.6030 #### [facility] [address] [place], [place], [id number] T PROT 6.2 g/dL Normal 5.9-8.4 [facility] Comment on above: Performed By: #### L 100.9950, L503.6550, L500.4050, L100.0100, L501.2300, L3100.2300, L501.5200, L503.6030 #### [facility] [address] [place], [place], [id number] Urea nitrogen [Mass/Vol] 19 mg/dL Normal 4-19 [facility] Comment on above: Performed By: #### L 100.9950, L503.6550, L500.4050, L100.0100, L501.2300, L3100.2300, L501.5200, L503.6030 #### [facility] [address] [place], [place], [address] Eosinophil percentageOrdered By: Antoni Leach on 11-17-2024 Eosinophils/100 WBC (Bld) 3.3 % 0-5 [facility] Erythrocyte distribution wid th ratioOrdered By: Antoni Leach on 11-17-2024 Erythrocyte distribution width (RBC) [Ratio] 19.9 % High 11.6-14.6 [facility] Erythrocyte distribution wid th standard deviationOrdered By: Antoni Leach on 11-17-2024 Erythrocyte distribution width (RBC) [Ratio] 66.8 fl High 35.1-43.9 [facility] Glomerular filtration rate ( GFR) estimation/1.73 sq m using serum, plasma, or whole bOrdered By: Antoni Leach on 11-17-2024 GFR/1.73 sq M.predicted among non-blacks MDRD (S/P/Bld) [Vol rate/Area] 73 mL/min/{1.73_m2} >60 [facility] Comment on above: mL/min/1.73m2 CKD-EP I Creatinine Equation (2021) Hematocrit Auto (Bld) [Volum e fraction]Ordered By: Antoni Leach on 11-17-2024 Hematocrit (Bld) [Volume fraction] 29.8 % Low 37-47 [facility] Hemoglobin measurementOrdere d By: Antoni Leach on 11-17-2024 Hemoglobin (Bld) [Mass/Vol] 10.0 g/dL Low 12.0-15.0 [facility] Immature granulocytes/100 WB C Auto (Bld)Ordered By: Antoni Leach on 11-17-2024 Immature granulocytes/100 WBC (Bld) 0.200 % 0.0-0.9 [facility] Comment on above: IG% - Immature Granu locytes (promyelocytes, myelocytes and metamyelocytes) > 1% indicates that a LEFT SHIFT is Present. Laboratory - Chemistry and C hemistry - challengeOrdered By: Antoni Leach on 11-17-2024 AST [Catalytic activity/Vol] 18 U/L <32 [facility] Laboratory - Hematology and Cell countsOrdered By: Antoni Leach on 11-17-2024 Anisocytosis Ql (Bld) 2+ [facility] MCV (mean corpuscular volume ) determinationOrdered By: [facility] on 11-17-2024 MCV (RBC) [Entitic vol] 94.9 fL 81-99 [facility] Magnesiumon 11-17-2024 Magnesium [Mass/Vol] 2.0 mg/dL Normal 1.5-2.2 [facility] Comment on above: Performed By: #### L 100.9950, L503.6550, L500.4050, L100.0100, L501.2300, L3100.2300, L501.5200, L503.6030 #### [facility] [address] [place], [address] Magnesium measurement (mass/ volume)Ordered By: Antoni Leach on 11-17-2024 Magnesium (Unsp spec) [Mass/Vol] 2.0 mg/dL 1.5-2.2 [facility] Mean corpuscular hemoglobin (MCH) determinationOrdered By: Antoni Leach on 11-17-2024 MCH (RBC) [Entitic mass] 31.8 pg 27.0-32.0 [facility] Mean corpuscular hemoglobin concentration (MCHC) determinationOrdered By: Antoni Leach on 11-17-2024 MCHC (RBC) [Mass/Vol] 33.6 g/dL 32-36 [facility] Mean platelet volume determi nationOrdered By: [facility] Haylee on 11-17-2024 Platelet mean volume (Bld) [Entitic vol] 10.3 fL 6.2-12.0 [facility] Monocyte percentageOrdered B y: [facility] Haylee on 11-17-2024 Monocytes/100 WBC (Bld) 9.8 % 0-10 [facility] Neutrophil percentageOrdered By: [facility] on 11-17-2024 Neutrophils/100 WBC (Bld) 53.7 % 47-70 [facility] Nucleated red blood cell per centageOrdered By: [facility] 11-17-2024 Nucleated RBC/100 WBC (Bld) [Ratio] 0 % 0-5 [facility] Oncology Visit Reporton Oncology Visit Report [facility] [address] [place] [address] OFFICE VISIT Date of Service: 11/17/24902 MR#: [id number] Acct: [id number] Name: TRUDY CALLE Rep #: [id number] : 1960 From: Ceci Hebert NP 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 It showed malignant partially obstructing tumor in the rectosigmoid, 8-10 centimeters from the anal verge. June 26, 2024 Sigmoid mass, biopsy: Invasive moderately differentiated adenocarcinoma Negative (no loss of mismatch protein; no microsatellite instability detected). July 04, 2024: Pelvic MRI: FINDINGS: * Circumferential 2.16 cm fungating mass invading all 3 layers of the wall of the distal sigmoid colon and rectosigmoid junction located 11 cm above the anal opening, see image #13/26 series 6. There is also extension of tumor through the outer covering of the distal sigmoid colon seen on image 12/26 series 6. This is also well visualized on the postcontrast image 22/44 series 14. 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 * No pelvic lymphadenopathy is present. * No marrow edema or lytic or blastic lesions or enhancing lesions are seen in the bony structures. * Bicornuate uterus noted. Unremarkable adnexa. Normal bilateral ovaries. Normal urinary bladder. Normal visualized small intestine. Normal remaining visualized colon. There is no pelvic fluid. There is no pelvic mass lesion or lymphadenopathy. Normal osseous structures. Normal abdominal wall. IMPRESSION: 1. Circumferential 2.16 cm fungating mass invading all 3 layers of the wall of the distal sigmoid colon and rectosigmoid junction located 11 cm above the anal opening, see image #13/26 series 6. There is also extension of tumor through the outer covering of the distal sigmoid colon seen on image 12/26 series 6. This is also well visualized on the postcontrast image 22/44 series 14. 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 There is also moderate diffuse thickening and edema and hyperenhancement of the inner mucosa and muscular portion of the wall of the entire rectum down to the anus most likely due to desmoplastic reaction from the above tumor. * High position: 10 to 15 cm above the anal sphincter * T3: tumor invades through the muscularis propria into the subserosa or into non-peritonealised perirectal tissues without reaching the mesorectal fascia or adjacent organs * Consultation with surgery/oncology recommended * Correlation with PET/CT imaging also recommended. * A CT of abdomen and pelvis with contrast can be obtained to evaluate the remaining structures for possible distal metastasis or involvement. PRIMARY TUMOR STAGING (T) Strictly speaking TNM staging, such as the [place] Joint Committee on Cancer (AJCC) 8th edition, does not subclassify T3. However, this subclassification does have the treatment and prognostic significance 7,8; tumors with a stage T3b or less confer a 5-year cancer-specific survival rate of 85%, whereas tumors with a stage T3c or greater have a 54% survival rate. * Tx: primary tumor cannot be assessed * T0: no evidence of primary tumor * Tis: carcinoma in situ: intraepithelial or invasion of lamina propria * T1: tumor invades submucosa * T2: tumor invades muscularis propria * MRI does not yet have the resolution capable of enabling differentiation of T1 and T2 lesions * T3: tumor invades through the muscularis propria into the subserosa or into non-peritonealised perirectal tissues without reaching the mesorectal fascia or adjacent organs * T4: tumor invades directly into other organs or structures and/or perforates visceral peritoneum Tumor location: * High position: 10 to 15 cm above the anal sphincter * Mid position: 5 to 10 cm above the anal sphincter * Low position: 0 to 5 cm above the anal sphincter Layers of the rectum/rectosigmoid colon: * Submucosa * Muscularis propria * Mucosal rectum * Mesorectal fascia Peritoneal space Adjacent and distal organs July 17, 2024 CT chest abdomen and pelvis: IMPRESSION: 1. Constipation. (more content not included)... Normal [facility] Platelet countOrdered By: Lisa Leach on 11-17-2024 Platelets (Bld) [#/Vol] 156 10*3/uL 150-450 [facility] Potassium measurement (mass/ volume)Ordered By: Antoni Leach on 11-17-2024 Potassium (Unsp spec) [Mass/Vol] 3.8 mmol/L 3.3-5.1 [facility] RBC Auto (Bld) [#/Vol]Ordere d By: Antoni Leach on 11-17-2024 RBC (Bld) [#/Vol] 3.14 10*6/uL Low 4.2-5.4 [facility] Serum creatinine measurement (mass/volume)Ordered By: Antoni Leach on 11-17-2024 Creatinine [Mass/Vol] 0.87 mg/dL 0.70-1.20 [facility] Serum globulin measurementOr dered By: Antoni Leach on 11-17-2024 Globulin (S) [Mass/Vol] 2.4 g/dL 2.2-4.2 [facility] Serum glucose measurement (m ass/volume)Ordered By: Antoni Leach on 11-17-2024 Glucose [Mass/Vol] 102 mg/dL High 70-99 [facility] Serum or plasma alanine zhu otransferase (ALT) measurementOrdered By: Antoni Leach on 11-17-2024 ALT [Catalytic activity/Vol] 16 U/L <35 [facility] Serum or plasma albumin sourav urement (mass/volume)Ordered By: Antoni Leach on 11-17-2024 Albumin [Mass/Vol] 3.8 g/dL 3.4-4.8 [facility] Serum or plasma albumin/glob ulin mass ratioOrdered By: Antoni Leach on 11-17-2024 Albumin/Globulin [Mass ratio] 1.6 {ratio} 0.9-2.4 [facility] Serum or plasma alkaline omid sphatase measurementOrdered By: Antoni Leach on 11-17-2024 ALP [Catalytic activity/Vol] 118 U/L High 35-104 [facility] Serum or plasma calcium sourav urement (mass/volume)Ordered By: Antoni Leach on 11-17-2024 Calcium [Mass/Vol] 9.0 mg/dL 7.6-11.0 [facility] Serum or plasma urea nitroge n measurement (mass/volume)Ordered By: Antoni Leach on 11-17-2024 Urea nitrogen [Mass/Vol] 19 mg/dL 4-19 [facility] Sodium levelOrdered By: Sarah Leach on 11-17-2024 Sodium [Moles/Vol] 141 mmol/L 133-145 [facility] Total proteinOrdered By: Colby Leach on 11-17-2024 Protein [Mass/Vol] 6.2 g/dL 5.9-8.4 [facility] White blood cell (WBC) count Ordered By: Antoni Leach on 11-17-2024 WBC (Bld) [#/Vol] 4.3 10*3/uL Low 4.4-11.0 [facility] Internal Medicine Office Vis sade 2024 Internal Medicine Office Visit [facility] [address] [place], [place] [address] OFFICE VISIT Date of Service: 11/05/24 MR#: [id number] Acct: [id number] Name: TRUDY CALLE Rep #: [id number] : 1960 Provider: Dr. Antoni judge MD Age/Sex: 64/F [place] [facility] [place] Status: Signed Intake Vital Signs 08/04/24 08:08 11/04/24 09:46 11/05/24 09:13 Height 5 ft 7 in 5 ft 7 in 5 ft 7 in Weight: 209 lb 4 oz BMI 32.8 BP 138/80 H Blood Pressure Location Rt brachial Position Sitting Respiration 16 Pulse 90 Pulse Source Monitor Temp 97.4 F L Temp Source Temporal Pulse Oximetry (%) 98 Oxygen Delivery Method room air Intake Visit Reasons: 3 M FU Chief Complaint: Follow-up chronic conditions [employer] Required: No Accompanied by: Self Is patient in pain?: No Allergies oxaliplatin Adverse Reaction (Severe, Verified 11/05/24 09:09) Chest tightness Medications ???Medication ???Instructions ???Recorded ???Confirmed ???Type clopidogrel 75 mg tablet 75 mg PO DAILY #90 tabs 11/01/23 0 11/05/24 Rx hydrochlorothiazide 25 mg tablet 25 mg PO QAM #90 tabs 11/01/23 Rx losartan 100 mg tablet 100 mg PO DAILY #90 tabs 11/01/23 11/05/24 Rx atorvastatin 40 mg tablet 40 mg PO DAILY #90 tabs 08/04/24 0 11/05/24 Rx potassium iodide 65 mg tablet 130 mg PO QDAY PRN pain 09/08/24 0 11/05/24 History lidocaine-prilocaine 2.5 %-2.5 % 1 applic topical ONCE PRN port 07/0511/05/24 Rx topical cream access 30 days #30 grams ondansetron 8 mg disintegrating 8 mg PO Q8H PRN nausea and 5 11/05/24 Rx tablet vomiting #30 tabs prochlorperazine maleate 10 mg 10 mg PO Q6H PRN nausea and 11/05/24 Rx tablet vomiting #30 tabs carvedilol 6.25 mg tablet 6.25 mg PO DAILY #90 tabs 10/27/24 11/05/24 Rx levothyroxine 150 mcg tablet 150 mcg PO DAILY #120 tabs 5 Rx Have you fallen in the past year?: No PFSH Medical History Actinic keratosis Encounter for chemotherapy management CINV (chemotherapy-induced nausea and vomiting) Encounter for education Regional lymph node metastasis present Wears glasses Smoker History of echocardiogram Cardiology follow-up encounter Wears dentures Blood in stool Chronic constipation Hyperlipidemia Health care maintenance Hypothyroidism Thyroid disease Hypertension Surgical History Hx of colonoscopy S/P colectomy History of tonsillectomy ( 1963) Family History Father Heart disease Mother Breast cancer Heart disease Social History Smoking Status: Current every day smoker tobacco type: cigarettes alcohol intake: current alcohol intake frequency: holidays/special occasions only substance use type: does not use what type of physical activity do you participate in: walking and other details: work frequency: 5-6 times per week HPI HPI Chief Complaint: Follow-up chronic conditions Details: TRUDY CALLE, is a 64 F who presents to the office today for follow-up of her chronic conditions. No acute concerns at this time. History of hypertension, blood pressure today at 138/80. Slightly elevated however chart review shows overall good control at other visits. She is taking her medication as prescribed. Feels well. No chest pain, palpitation or shortness of breath. Also history of hypothyroidism on levothyroxine, last TSH slightly elevated but much improved from previous check. She states that she is taking it in the morning and waiting at least 30 minutes before eating. No heat or cold intolerance or unintentional weight changes. History of colorectal cancer, tolerating chemotherapy without any significant concerns. She states that she has 2 more and then she is done. Feels well. ROS Const Constitutional: No body ache, excessive sweating, fatigue, fever(s), frequent falls, headache(s), snoring, weakness, weight change, sleep problems or change in appetite Eyes Eyes: No blurry vision, change in vision, bulging eyes, floaters, visual disturbances, eye pain or Light sensitivity ENT ENT: No abnormal hearing, ear or mastoid pain, tinnitus, balance problems, nasal congestion, headache(s), neck pain or sore throat Resp Respiratory: No cough, shortness of breath, snoring or wheezing Cardio Cardiology: No chest pain at rest, chest pain with exertion, excessive sweating, shortness of breath, dyspnea on exertion, lightheadedness, orthopnea or palpitations Gastro GI: No abdominal pain, change in bowel habits, constipation, cramping, diarrhea, nausea/dyspepsia or vomiting Genitourinary-Female: No burning urination, painful urination (more content not included)... Normal [facility] Thyroid Stim Hormone (TSH)on 2024 TSH 9.470 uIU/mL High 0.300-4.200 [facility] Comment on above: Performed By: #### L 501.9708 ####[facility] [address] [place], [address] Absolute lymphocyte countOrd ered By: Dayton Lewis on 11-04-2024 Lymphocytes Auto (Unsp spec) [#/Vol] 1.63 10*3/uL 0.83-4.51 [facility] Absolute neutrophil countOrd ered By: [facility] on 11-04-2024 Neutrophils (Bld) [#/Vol] 1.9 10*3/uL Low 2.0-7.7 [facility] Anion gap in Serum or Plasma Ordered By: Dayton Lewis on 11-04-2024 Anion gap [Moles/Vol] 12 mmol/L 5-15 [facility] Automated lymphocyte count a s percentage of total leukocytesOrdered By: Dayton Lewis on 11-04-2024 Lymphocytes/100 WBC Auto (Unsp spec) 39.0 % - [facility] BUN/creatinine ratioOrdered By: [facility] on 11-04-2024 Urea nitrogen/Creatinine [Mass ratio] 22.1 mg/mg High 10-20 [facility] Basophil percentageOrdered B y: Dayton Lewis on 11-04-2024 Basophils/100 WBC (Bld) 1.0 % 0-1 [facility] Bilirubin, totalOrdered By: Dayton Lewis on 11-04-2024 Bilirubin [Mass/Vol] 0.37 mg/dL 0.00-1.30 [facility] Blood polychromasia detectio n by light microscopyOrdered By: Dayton Lewis on 11-04-2024 Polychromasia LM Ql (Bld) 1+ [facility] CBC W/Diff, Automatedon 10-10 PLT EST SLT DEC Normal ADEQ [facility] Comment on above: Performed By: #### L 501.5200, L500.4050, L100.0100 ####[facility] [address] [place], [address] POLYCHROMASIA 1+ Normal [facility] Comment on above: Performed By: #### L 501.5200, L500.4050, L100.0100 ####[facility] [address] [place], [address] Carbon dioxide, total [Moles /volume] in Central venous bloodOrdered By: Dayton Lewis on 11-04-2024 CO2 [Moles/Vol] 22.1 mmol/L 21.0-32.0 [facility] Chloride assayOrdered By: Chelsea Lewis on 11-04-2024 Chloride [Moles/Vol] 107 mmol/L 98-108 [facility] Comprehensive Metabolic Prof ilon 11-04-2024 Albumin [Mass/Vol] 3.9 g/dL Normal 3.4-4.8 [facility] Comment on above: Performed By: #### L 501.5200, L500.4050, L100.0100 ####[facility] [address] [place], [address] Albumin/Globulin [Mass ratio] 1.6 {ratio} Normal 0.9-2.4 [facility] Comment on above: Performed By: #### L 501.5200, L500.4050, L100.0100 ####[facility] [address] [place], [address] ALK PHOS 108 U/L High 35-104 [facility] Comment on above: Performed By: #### L 501.5200, L500.4050, L100.0100 ####[facility] [address] [place], [address] ALT [Catalytic activity/Vol] 15 U/L Normal <=34 [facility] Comment on above: Performed By: #### L 501.5200, L500.4050, L100.0100 ####[facility] [address] [place], [address] AST [Catalytic activity/Vol] 16 U/L Normal <=31 [facility] Comment on above: Performed By: #### L 501.5200, L500.4050, L100.0100 ####[facility] [address] [place], [address] Bilirubin [Mass/Vol] 0.37 mg/dL Normal 0.00-1.30 [facility] Comment on above: Performed By: #### L 501.5200, L500.4050, L100.0100 ####[facility] [address] [place], [address] BUN/CRE 22.1 RATIO High 10-20 [facility] Comment on above: Performed By: #### L 501.5200, L500.4050, L100.0100 ####[facility] [address] [place], [address] Calcium [Mass/Vol] 9.1 mg/dL Normal 7.6-11.0 [facility] Comment on above: Performed By: #### L 501.5200, L500.4050, L100.0100 ####[facility] [address] [place], [address] Chloride [Moles/Vol] 107 mmol/L Normal 98-108 [facility] Comment on above: Performed By: #### L 501.5200, L500.4050, L100.0100 ####[facility] [address] [place], [address] CO2 [Moles/Vol] 22.1 mmol/L Normal 21.0-32.0 [facility] Comment on above: Performed By: #### L 501.5200, L500.4050, L100.0100 ####[facility] [address] [place], [address] Creatinine [Mass/Vol] 0.90 mg/dL Normal 0.70-1.20 [facility] Comment on above: Performed By: #### L 501.5200, L500.4050, L100.0100 ####[facility] [address] [place], [address] ECRCL 73.40 ml/min Normal 50-250 [facility] Comment on above: Performed By: #### L 501.5200, L500.4050, L100.0100 ####[facility] [address] [place], [address] GAP 12 Normal 5-15 [facility] Comment on above: Performed By: #### L 501.5200, L500.4050, L100.0100 ####[facility] [address] [place], [address] GFR/1.73 sq M.predicted among non-blacks MDRD (S/P/Bld) [Vol rate/Area] 71 mL/min/{1.73_m2} Normal >60 [facility] Comment on above: Result Comment: mL/m in/1.73m2 CKD-EPI Creatinine Equation (2020) Performed By: #### L 501.5200, L500.4050, L100.0100 ####[facility] [address] [place], [address] Globulin (S) [Mass/Vol] 2.5 g/dL Normal 2.2-4.2 [facility] Comment on above: Performed By: #### L 501.5200, L500.4050, L100.0100 ####[facility] [address] [place], [address] Glucose [Mass/Vol] 152 mg/dL High 70-99 [facility] Comment on above: Performed By: #### L 501.5200, L500.4050, L100.0100 ####[facility] [address] [place], [address] Potassium [Moles/Vol] 3.6 mmol/L Normal 3.3-5.1 [facility] Comment on above: Performed By: #### L 501.5200, L500.4050, L100.0100 ####[facility] [address] [place], [address] Sodium [Moles/Vol] 141 mmol/L Normal 133-145 [facility] Comment on above: Performed By: #### L 501.5200, L500.4050, L100.0100 ####[facility] [address] [place], [address] T PROT 6.4 g/dL Normal 5.9-8.4 [facility] Comment on above: Performed By: #### L 501.5200, L500.4050, L100.0100 ####[facility] [address] [place], [address] Urea nitrogen [Mass/Vol] 20 mg/dL High 4-19 [facility] Comment on above: Performed By: #### L 501.5200, L500.4050, L100.0100 ####[facility] [address] [place], [address] Eosinophil percentageOrdered By: Dayton Lewis on 11-04-2024 Eosinophils/100 WBC (Bld) 4.5 % 0-5 [facility] Erythrocyte distribution wid th ratioOrdered By: Dayton Carson on 11-04-2024 Erythrocyte distribution width (RBC) [Ratio] 18.6 % High 11.6-14.6 [facility] Erythrocyte distribution wid th standard deviationOrdered By: [facility] on 11-04-2024 Erythrocyte distribution width (RBC) [Ratio] 61.0 fl High 35.1-43.9 [facility] Glomerular filtration rate ( GFR) estimation/1.73 sq m using serum, plasma, or whole bOrdered By: Dayton Yamileth on 11-04-2024 GFR/1.73 sq M.predicted among non-blacks MDRD (S/P/Bld) [Vol rate/Area] 71 mL/min/{1.73_m2} >60 [facility] Comment on above: mL/min/1.73m2 CKD-EP I Creatinine Equation (2020) Hematocrit Auto (Bld) [Volum e fraction]Ordered By: Dayton Carson on 11-04-2024 Hematocrit (Bld) [Volume fraction] 32.7 % Low 37-47 [facility] Hemoglobin measurementOrdere d By: [facility] on 11-04-2024 Hemoglobin (Bld) [Mass/Vol] 10.5 g/dL Low 12.0-15.0 [facility] Immature granulocytes/100 WB C Auto (Bld)Ordered By: Dayton Lewis on 11-04-2024 Immature granulocytes/100 WBC (Bld) 0.500 % 0.0-0.9 [facility] Comment on above: IG% - Immature Granu locytes (promyelocytes, myelocytes and metamyelocytes) > 1% indicates that a LEFT SHIFT is Present. Laboratory - Chemistry and C hemistry - challengeOrdered By: Dayton Yamileth on 11-04-2024 AST [Catalytic activity/Vol] 16 U/L <32 [facility] MCV (mean corpuscular volume ) determinationOrdered By: [facility] on 11-04-2024 MCV (RBC) [Entitic vol] 95.6 fL 81-99 [facility] Magnesiumon 11-04-2024 Magnesium [Mass/Vol] 2.1 mg/dL Normal 1.5-2.2 [facility] Comment on above: Performed By: #### L 501.5200, L500.4050, L100.0100 ####[facility] [address] [place], [address] Magnesium measurement (mass/ volume)Ordered By: [facility] on 11-04-2024 Magnesium (Unsp spec) [Mass/Vol] 2.1 mg/dL 1.5-2.2 [facility] Mean corpuscular hemoglobin (MCH) determinationOrdered By: [facility] on 11-04-2024 MCH (RBC) [Entitic mass] 30.7 pg 27.0-32.0 [facility] Mean corpuscular hemoglobin concentration (MCHC) determinationOrdered By: [facility] on 11-04-2024 MCHC (RBC) [Mass/Vol] 32.1 g/dL 32-36 [facility] Mean platelet volume determi nationOrdered By: [facility] on 11-04-2024 Platelet mean volume (Bld) [Entitic vol] 11.5 fL 6.2-12.0 [facility] Monocyte percentageOrdered B y: [facility] on 11-04-2024 Monocytes/100 WBC (Bld) 9.1 % 0-10 [facility] Neutrophil percentageOrdered By: [facility] on 11-04-2024 Neutrophils/100 WBC (Bld) 45.9 % Low 47-70 [facility] Nucleated red blood cell per centageOrdered By: [facility] on 11-04-2024 Nucleated RBC/100 WBC (Bld) [Ratio] 0 % 0-5 [facility] Oncology Visit Reporton 10-10 Oncology Visit Report [facility] [place] [facility] [address] [place] [address] OFFICE VISIT Date of Service: 11/04/24 0943 MR#: [id number] Acct: [id number] Name: TRUDY CALLE Rep #: [id number] : 1960 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 It showed malignant partially obstructing tumor in the rectosigmoid, 8-10 centimeters from the anal verge. June 26, 2024 Sigmoid mass, biopsy: Invasive moderately differentiated adenocarcinoma Negative (no loss of mismatch protein; no microsatellite instability detected). July 04, 2024: Pelvic MRI: FINDINGS: * Circumferential 2.16 cm fungating mass invading all 3 layers of the wall of the distal sigmoid colon and rectosigmoid junction located 11 cm above the anal opening, see image #13/26 series 6. There is also extension of tumor through the outer covering of the distal sigmoid colon seen on image 12/26 series 6. This is also well visualized on the postcontrast image /44 series 14. 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 * No pelvic lymphadenopathy is present. * No marrow edema or lytic or blastic lesions or enhancing lesions are seen in the bony structures. * Bicornuate uterus noted. Unremarkable adnexa. Normal bilateral ovaries. Normal urinary bladder. Normal visualized small intestine. Normal remaining visualized colon. There is no pelvic fluid. There is no pelvic mass lesion or lymphadenopathy. Normal osseous structures. Normal abdominal wall. IMPRESSION: 1. Circumferential 2.16 cm fungating mass invading all 3 layers of the wall of the distal sigmoid colon and rectosigmoid junction located 11 cm above the anal opening, see image #13/26 series 6. There is also extension of tumor through the outer covering of the distal sigmoid colon seen on image 12/26 series 6. This is also well visualized on the postcontrast image 22/44 series 14. 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 There is also moderate diffuse thickening and edema and hyperenhancement of the inner mucosa and muscular portion of the wall of the entire rectum down to the anus most likely due to desmoplastic reaction from the above tumor. * High position: 10 to 15 cm above the anal sphincter * T3: tumor invades through the muscularis propria into the subserosa or into non-peritonealised perirectal tissues without reaching the mesorectal fascia or adjacent organs * Consultation with surgery/oncology recommended * Correlation with PET/CT imaging also recommended. * A CT of abdomen and pelvis with contrast can be obtained to evaluate the remaining structures for possible distal metastasis or involvement. PRIMARY TUMOR STAGING (T) Strictly speaking TNM staging, such as the [place] Joint Committee on Cancer (AJCC) 8th edition, does not subclassify T3. However, this subclassification does have the treatment and prognostic significance 7,8; tumors with a stage T3b or less confer a 5-year cancer-specific survival rate of 85%, whereas tumors with a stage T3c or greater have a 54% survival rate. * Tx: primary tumor cannot be assessed * T0: no evidence of primary tumor * Tis: carcinoma in situ: intraepithelial or invasion of lamina propria * T1: tumor invades submucosa * T2: tumor invades muscularis propria * MRI does not yet have the resolution capable of enabling differentiation of T1 and T2 lesions * T3: tumor invades through the muscularis propria into the subserosa or into non-peritonealised perirectal tissues without reaching the mesorectal fascia or adjacent organs * T4: tumor invades directly into other organs or structures and/or perforates visceral peritoneum Tumor location: * High position: 10 to 15 cm above the anal sphincter * Mid position: 5 to 10 cm above the anal sphincter * Low position: 0 to 5 cm above the anal sphincter Layers of the rectum/rectosigmoid colon: * Submucosa * Muscularis propria * Mucosal rectum * Mesorectal fascia Peritoneal space Adjacent and distal organs July 17, 2024 CT chest abdomen and pelvis: IMPRESSION: 1. Constipation. Ap (more content not included)... Normal [facility] Platelet countOrdered By: Chelsea Lewis on 11-04-2024 Platelets (Bld) [#/Vol] 121 10*3/uL Low 150-450 [facility] Platelet estimateOrdered By: Dayton Lewis on 11-04-2024 Platelets LM Ql (Bld) SLT DEC ADEQ [facility] Potassium measurement (mass/ volume)Ordered By: Dayton Lewis on 11-04-2024 Potassium (Unsp spec) [Mass/Vol] 3.6 mmol/L 3.3-5.1 [facility] RBC Auto (Bld) [#/Vol]Ordere d By: Dayton Lewis on 11-04-2024 RBC (Bld) [#/Vol] 3.42 10*6/uL Low 4.2-5.4 [facility] Serum creatinine measurement (mass/volume)Ordered By: Dayton Lewis on 11-04-2024 Creatinine [Mass/Vol] 0.90 mg/dL 0.70-1.20 [facility] Serum globulin measurementOr dered By: Dayton Lewis on 11-04-2024 Globulin (S) [Mass/Vol] 2.5 g/dL 2.2-4.2 [facility] Serum glucose measurement (m ass/volume)Ordered By: Dayton Lewis on 11-04-2024 Glucose [Mass/Vol] 152 mg/dL High 70-99 [facility] Serum or plasma alanine zhu otransferase (ALT) measurementOrdered By: Dayton Lewis on 11-04-2024 ALT [Catalytic activity/Vol] 15 U/L <35 [facility] Serum or plasma albumin sourav urement (mass/volume)Ordered By: Dayton Lewis on 11-04-2024 Albumin [Mass/Vol] 3.9 g/dL 3.4-4.8 [facility] Serum or plasma albumin/glob ulin mass ratioOrdered By: Dayton Lewis on 11-04-2024 Albumin/Globulin [Mass ratio] 1.6 {ratio} 0.9-2.4 [facility] Serum or plasma alkaline omid sphatase measurementOrdered By: Dayton Lewis on 11-04-2024 ALP [Catalytic activity/Vol] 108 U/L High 35-104 [facility] Serum or plasma calcium sourav urement (mass/volume)Ordered By: Dayton Lewis on 11-04-2024 Calcium [Mass/Vol] 9.1 mg/dL 7.6-11.0 [facility] Serum or plasma urea nitroge n measurement (mass/volume)Ordered By: Dayton Lewis on 11-04-2024 Urea nitrogen [Mass/Vol] 20 mg/dL High 4-19 [facility] Sodium levelOrdered By: Allen Lewis on 11-04-2024 Sodium [Moles/Vol] 141 mmol/L 133-145 [facility] TSH DL <= 0.005 mIU/L QnOrde red By: Antoni Slaughter on 11-04-2024 TSH Qn 9.470 uIU/mL High 0.300-4.200 [facility] Total proteinOrdered By: Eder renteria Joshua on 11-04-2024 Protein [Mass/Vol] 6.4 g/dL 5.9-8.4 [facility] White blood cell (WBC) count Ordered By: Dayton Joshua on 11-04-2024 WBC (Bld) [#/Vol] 4.2 10*3/uL Low 4.4-11.0 [facility] CBC W/Diff, Automatedon 10-09 Absolute Lymph 1.85 X10 3/uL Normal 0.83-4.51 [facility] Comment on above: Performed By: #### L 501.5200, L100.0100, L500.4050 ####[facility] [address] [place], [address] Absolute Neut 3.5 X10 3/uL Normal 2.0-7.7 [facility] Comment on above: Performed By: #### L 501.5200, L100.0100, L500.4050 ####[facility] [address] [place], [address] Basophils/100 WBC (Bld) 0.6 % Normal 0-1 [facility] Comment on above: Performed By: #### L 501.5200, L100.0100, L500.4050 ####[facility] [address] [place], [address] Eosinophils/100 WBC (Bld) 3.0 % Normal 0-5 [facility] Comment on above: Performed By: #### L 501.5200, L100.0100, L500.4050 ####[facility] [address] [place], [address] Erythrocyte distribution width (RBC) [Ratio] 16.0 % High 11.6-14.6 [facility] Comment on above: Performed By: #### L 501.5200, L100.0100, L500.4050 ####[facility] [address] [place], [address] Hematocrit (Bld) [Volume fraction] 33.0 % Low 37-47 [facility] Comment on above: Performed By: #### L 501.5200, L100.0100, L500.4050 ####[facility] [address] [place], [address] Hemoglobin (Bld) [Mass/Vol] 10.9 g/dL Low 12.0-15.0 [facility] Comment on above: Performed By: #### L 501.5200, L100.0100, L500.4050 ####[facility] [address] [place], [address] IG% 0.300 Normal 0.0-0.9 [facility] Comment on above: Result Comment: IG% - Immature Granulocytes (promyelocytes, myelocytes and metamyelocytes) > 1% indicates that a LEFT SHIFT is Present. Performed By: #### L 501.5200, L100.0100, L500.4050 ####[facility] [address] [place], [address] Lymphocytes/100 WBC (Bld) 29.6 % Normal 19-41 [facility] Comment on above: Performed By: #### L 501.5200, L100.0100, L500.4050 ####[facility] [address] [place], [address] MCH (RBC) [Entitic mass] 30.1 pg Normal 27.0-32.0 [facility] Comment on above: Performed By: #### L 501.5200, L100.0100, L500.4050 ####[facility] [address] [place], [address] MCHC (RBC) [Mass/Vol] 33.0 g/dL Normal 32-36 [facility] Comment on above: Performed By: #### L 501.5200, L100.0100, L500.4050 ####[facility] [address] [place], [address] MCV (RBC) [Entitic vol] 91.2 fL Normal 81-99 [facility] Comment on above: Performed By: #### L 501.5200, L100.0100, L500.4050 ####[facility] [address] [place], [address] Monocytes/100 WBC (Bld) 10.7 % High 0-10 [facility] Comment on above: Performed By: #### L 501.5200, L100.0100, L500.4050 ####[facility] [address] [place], [address] Neutrophils/100 WBC (Bld) 55.8 % Normal 47-70 [facility] Comment on above: Performed By: #### L 501.5200, L100.0100, L500.4050 ####[facility] [address] [place], [address] Nucleated RBC (Bld) [#/Vol] 0 10*3/uL Normal 0-5 [facility] Comment on above: Performed By: #### L 501.5200, L100.0100, L500.4050 ####[facility] [address] [place], [address] Platelet mean volume (Bld) [Entitic vol] 11.0 fL Normal 6.2-12.0 [facility] Comment on above: Performed By: #### L 501.5200, L100.0100, L500.4050 ####[facility] [address] [place], [address] Platelets (Bld) [#/Vol] 165 10*3/uL Normal 150-450 [facility] Comment on above: Performed By: #### L 501.5200, L100.0100, L500.4050 ####[facility] [address] [place], [address] RBC (Bld) [#/Vol] 3.62 10*6/uL Low 4.2-5.4 [facility] Comment on above: Performed By: #### L 501.5200, L100.0100, L500.4050 ####[facility] [address] [place], [address] RDW SD 49.3 fl High 35.1-43.9 [facility] Comment on above: Performed By: #### L 501.5200, L100.0100, L500.4050 ####[facility] [address] [place], [address] WBC (Bld) [#/Vol] 6.3 10*3/uL Normal 4.4-11.0 [facility] Comment on above: Performed By: #### L 501.5200, L100.0100, L500.4050 ####[facility] [address] [place], [address] Comprehensive Metabolic [facility] 10-20-2024 Albumin [Mass/Vol] 3.9 g/dL Normal 3.4-4.8 [facility] Comment on above: Performed By: #### L 501.5200, L100.0100, L500.4050 ####[facility] [address] [place], [address] Albumin/Globulin [Mass ratio] 1.5 {ratio} Normal 0.9-2.4 [facility] Comment on above: Performed By: #### L 501.5200, L100.0100, L500.4050 ####[facility] [address] [place], [address] ALK PHOS 115 U/L High 35-104 [facility] Comment on above: Performed By: #### L 501.5200, L100.0100, L500.4050 ####[facility] [address] [place], [address] ALT [Catalytic activity/Vol] 19 U/L Normal <=34 [facility] Comment on above: Performed By: #### L 501.5200, L100.0100, L500.4050 ####[facility] [address] [place], [address] AST [Catalytic activity/Vol] 17 U/L Normal <=31 [facility] Comment on above: Performed By: #### L 501.5200, L100.0100, L500.4050 ####[facility] [address] [place], [address] Bilirubin [Mass/Vol] 0.50 mg/dL Normal 0.00-1.30 [facility] Comment on above: Performed By: #### L 501.5200, L100.0100, L500.4050 ####[facility] [address] [place], [address] BUN/CRE 19.6 RATIO Normal 10-20 [facility] Comment on above: Performed By: #### L 501.5200, L100.0100, L500.4050 ####[facility] [address] [place], [address] Calcium [Mass/Vol] 9.3 mg/dL Normal 7.6-11.0 [facility] Comment on above: Performed By: #### L 501.5200, L100.0100, L500.4050 ####[facility] [address] [place], [address] Chloride [Moles/Vol] 102 mmol/L Normal 98-108 [facility] Comment on above: Performed By: #### L 501.5200, L100.0100, L500.4050 ####[facility] [address] [place], [address] CO2 [Moles/Vol] 23.5 mmol/L Normal 21.0-32.0 [facility] Comment on above: Performed By: #### L 501.5200, L100.0100, L500.4050 ####[facility] [address] [place], [address] Creatinine [Mass/Vol] 0.82 mg/dL Normal 0.70-1.20 [facility] Comment on above: Performed By: #### L 501.5200, L100.0100, L500.4050 ####[facility] [address] [place], [address] ECRCL 80.27 ml/min Normal 50-250 [facility] Comment on above: Performed By: #### L 501.5200, L100.0100, L500.4050 ####[facility] [address] [place], [address] GAP 12 Normal 5-15 [facility] Comment on above: Performed By: #### L 501.5200, L100.0100, L500.4050 ####[facility] [address] [place], [address] GFR/1.73 sq M.predicted among non-blacks MDRD (S/P/Bld) [Vol rate/Area] 80 mL/min/{1.73_m2} Normal >60 [facility] Comment on above: Result Comment: mL/m in/1.73m2 CKD-EPI Creatinine Equation (2020) Performed By: #### L 501.5200, L100.0100, L500.4050 ####[facility] [address] [place], [address] Globulin (S) [Mass/Vol] 2.6 g/dL Normal 2.2-4.2 [facility] Comment on above: Performed By: #### L 501.5200, L100.0100, L500.4050 ####[facility] [address] [place], [address] Glucose [Mass/Vol] 105 mg/dL High 70-99 [facility] Comment on above: Performed By: #### L 501.5200, L100.0100, L500.4050 ####[facility] [address] [place], [address] Potassium [Moles/Vol] 3.6 mmol/L Normal 3.3-5.1 [facility] Comment on above: Performed By: #### L 501.5200, L100.0100, L500.4050 ####[facility] [address] [place], [address] Sodium [Moles/Vol] 137 mmol/L Normal 133-145 [facility] Comment on above: Performed By: #### L 501.5200, L100.0100, L500.4050 ####[facility] [address] [place], [address] T PROT 6.4 g/dL Normal 5.9-8.4 [facility] Comment on above: Performed By: #### L 501.5200, L100.0100, L500.4050 ####[facility] [address] [place], [address] Urea nitrogen [Mass/Vol] 16 mg/dL Normal 4-19 [facility] Comment on above: Performed By: #### L 501.5200, L100.0100, L500.4050 ####[facility] [address] [place], [address] Magnesiumon 10-20-2024 Magnesium [Mass/Vol] 2.1 mg/dL Normal 1.5-2.2 [facility] Comment on above: Performed By: #### L 501.5200, L100.0100, L500.4050 ####[facility] [address] [place], [address] Oncology Visit Reporton 10-09 Oncology Visit Report [facility] [place] [facility] [address] [place] [address] OFFICE VISIT Date of Service: 10/20/24929 MR#: [id number] Acct: [id number] Name: TRUDY CALLE Rep #: [id number] : 1960 From: Ceci Hebert NP [employer] -C Age/Sex: 63/F [place] [facility] [place] Status: Signed HPI Subjective Date of Service 10/20/24 Chief Complaint Colon cancer History of Present Illness 63 YOF presented with hematochezia, had colonoscopy on 06/26/2024. It showed malignant partially obstructing tumor in the rectosigmoid, 8-10 centimeters from the anal verge. June 26, 2024 Sigmoid mass, biopsy: Invasive moderately differentiated adenocarcinoma Negative (no loss of mismatch protein; no microsatellite instability detected). July 04, 2024: Pelvic MRI: FINDINGS: * Circumferential 2.16 cm fungating mass invading all 3 layers of the wall of the distal sigmoid colon and rectosigmoid junction located 11 cm above the anal opening, see image #13/ series 6. There is also extension of tumor through the outer covering of the distal sigmoid colon seen on image / series 6. This is also well visualized on the postcontrast image / series 14. 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 * No pelvic lymphadenopathy is present. * No marrow edema or lytic or blastic lesions or enhancing lesions are seen in the bony structures. * Bicornuate uterus noted. Unremarkable adnexa. Normal bilateral ovaries. Normal urinary bladder. Normal visualized small intestine. Normal remaining visualized colon. There is no pelvic fluid. There is no pelvic mass lesion or lymphadenopathy. Normal osseous structures. Normal abdominal wall. IMPRESSION: 1. Circumferential 2.16 cm fungating mass invading all 3 layers of the wall of the distal sigmoid colon and rectosigmoid junction located 11 cm above the anal opening, see image #13/26 series 6. There is also extension of tumor through the outer covering of the distal sigmoid colon seen on image 12/26 series 6. This is also well visualized on the postcontrast image / series 14. 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 There is also moderate diffuse thickening and edema and hyperenhancement of the inner mucosa and muscular portion of the wall of the entire rectum down to the anus most likely due to desmoplastic reaction from the above tumor. * High position: 10 to 15 cm above the anal sphincter * T3: tumor invades through the muscularis propria into the subserosa or into non-peritonealised perirectal tissues without reaching the mesorectal fascia or adjacent organs * Consultation with surgery/oncology recommended * Correlation with PET/CT imaging also recommended. * A CT of abdomen and pelvis with contrast can be obtained to evaluate the remaining structures for possible distal metastasis or involvement. PRIMARY TUMOR STAGING (T) Strictly speaking TNM staging, such as the [place] Joint Committee on Cancer (AJCC) 8th edition, does not subclassify T3. However, this subclassification does have the treatment and prognostic significance 7,8; tumors with a stage T3b or less confer a 5-year cancer-specific survival rate of 85%, whereas tumors with a stage T3c or greater have a 54% survival rate. * Tx: primary tumor cannot be assessed * T0: no evidence of primary tumor * Tis: carcinoma in situ: intraepithelial or invasion of lamina propria * T1: tumor invades submucosa * T2: tumor invades muscularis propria * MRI does not yet have the resolution capable of enabling differentiation of T1 and T2 lesions * T3: tumor invades through the muscularis propria into the subserosa or into non-peritonealised perirectal tissues without reaching the mesorectal fascia or adjacent organs * T4: tumor invades directly into other organs or structures and/or perforates visceral peritoneum Tumor location: * High position: 10 to 15 cm above the anal sphincter * Mid position: 5 to 10 cm above the anal sphincter * Low position: 0 to 5 cm above the anal sphincter Layers of the rectum/rectosigmoid colon: * Submucosa * Muscularis propria * Mucosal rectum * Mesorectal fascia Peritoneal space Adjacent and distal organs July 17, 2024 CT chest abdomen and pelvis: IMPRESSION: 1. Constipation. Apparent thicke (more content not included)... Normal [facility] CBC W/Diff, Automatedon 04- Absolute Lymph 1.62 X10 3/uL Normal 0.83-4.51 [facility] Comment on above: Performed By: #### L 100.9950, L503.6550, L500.4050, L100.0100, L501.2300, L3100.2300, L501.5200, L503.6030 #### [facility] [address] [place], [address] Absolute Neut 2.0 X10 3/uL Normal 2.0-7.7 [facility] Comment on above: Performed By: #### L 100.9950, L503.6550, L500.4050, L100.0100, L501.2300, L3100.2300, L501.5200, L503.6030 #### [facility] [address] [place], [address] Basophils/100 WBC (Bld) 0.9 % Normal 0-1 [facility] Comment on above: Performed By: #### L 100.9950, L503.6550, L500.4050, L100.0100, L501.2300, L3100.2300, L501.5200, L503.6030 #### [facility] [address] [place], [address] Eosinophils/100 WBC (Bld) 9.4 % High 0-5 [facility] Comment on above: Performed By: #### L 100.9950, L503.6550, L500.4050, L100.0100, L501.2300, L3100.2300, L501.5200, L503.6030 #### [facility] [address] [place], [address] (117) Erythrocyte distribution width (RBC) [Ratio] 14.0 % Normal 11.6-14.6 [facility] Comment on above: Performed By: #### L 100.9950, L503.6550, L500.4050, L100.0100, L501.2300, L3100.2300, L501.5200, L503.6030 #### [facility] [address] [place], [address] (840) Hematocrit (Bld) [Volume fraction] 32.3 % Low 37-47 [facility] Comment on above: Performed By: #### L 100.9950, L503.6550, L500.4050, L100.0100, L501.2300, L3100.2300, L501.5200, L503.6030 #### [facility] [address] [place], [address] (783) Hemoglobin (Bld) [Mass/Vol] 10.8 g/dL Low 12.0-15.0 [facility] Comment on above: Performed By: #### L 100.9950, L503.6550, L500.4050, L100.0100, L501.2300, L3100.2300, L501.5200, L503.6030 #### [facility] [address] [place], [address] ( IG% 0.200 Normal 0.0-0.9 [facility] Comment on above: Result Comment: IG% - Immature Granulocytes (promyelocytes, myelocytes and metamyelocytes) > 1% indicates that a LEFT SHIFT is Present. Performed By: #### L 100.9950, L503.6550, L500.4050, L100.0100, L501.2300, L3100.2300, L501.5200, L503.6030 #### [facility] [address] [place], [address] Lymphocytes/100 WBC (Bld) 34.8 % Normal 19-41 [facility] Comment on above: Performed By: #### L 100.9950, L503.6550, L500.4050, L100.0100, L501.2300, L3100.2300, L501.5200, L503.6030 #### [facility] [address] [facility] [place], [address] MCH (RBC) [Entitic mass] 30.3 pg Normal 27.0-32.0 [facility] Comment on above: Performed By: #### L 100.9950, L503.6550, L500.4050, L100.0100, L501.2300, L3100.2300, L501.5200, L503.6030 #### [facility] [address] [place], [address] MCHC (RBC) [Mass/Vol] 33.4 g/dL Normal 32-36 [facility] Comment on above: Performed By: #### L 100.9950, L503.6550, L500.4050, L100.0100, L501.2300, L3100.2300, L501.5200, L503.6030 #### [facility] [address] [place], [address] MCV (RBC) [Entitic vol] 90.7 fL Normal 81-99 [facility] Comment on above: Performed By: #### L 100.9950, L503.6550, L500.4050, L100.0100, L501.2300, L3100.2300, L501.5200, L503.6030 #### [facility] [address] [place], [address] Monocytes/100 WBC (Bld) 11.8 % High 0-10 [facility] Comment on above: Performed By: #### L 100.9950, L503.6550, L500.4050, L100.0100, L501.2300, L3100.2300, L501.5200, L503.6030 #### [facility] [address] [place], [address] Neutrophils/100 WBC (Bld) 42.9 % Low 47-70 [facility] Comment on above: Performed By: #### L 100.9950, L503.6550, L500.4050, L100.0100, L501.2300, L3100.2300, L501.5200, L503.6030 #### [facility] [address] [place], [address] Nucleated RBC (Bld) [#/Vol] 0 10*3/uL Normal 0-5 [facility] Comment on above: Performed By: #### L 100.9950, L503.6550, L500.4050, L100.0100, L501.2300, L3100.2300, L501.5200, L503.6030 #### [facility] [address] [place], [address] Platelet mean volume (Bld) [Entitic vol] 10.5 fL Normal 6.2-12.0 [facility] Comment on above: Performed By: #### L 100.9950, L503.6550, L500.4050, L100.0100, L501.2300, L3100.2300, L501.5200, L503.6030 #### [facility] [address] [place], [address] Platelets (Bld) [#/Vol] 181 10*3/uL Normal 150-450 [facility] Comment on above: Performed By: #### L 100.9950, L503.6550, L500.4050, L100.0100, L501.2300, L3100.2300, L501.5200, L503.6030 #### [facility] [address] [place], [address] RBC (Bld) [#/Vol] 3.56 10*6/uL Low 4.2-5.4 [facility] Comment on above: Performed By: #### L 100.9950, L503.6550, L500.4050, L100.0100, L501.2300, L3100.2300, L501.5200, L503.6030 #### [facility] [address] [place], [address] RDW SD 45.5 fl High 35.1-43.9 [facility] Comment on above: Performed By: #### L 100.9950, L503.6550, L500.4050, L100.0100, L501.2300, L3100.2300, L501.5200, L503.6030 #### [facility] [address] [place], [address] WBC (Bld) [#/Vol] 4.7 10*3/uL Normal 4.4-11.0 [facility] Comment on above: Performed By: #### L 100.9950, L503.6550, L500.4050, L100.0100, L501.2300, L3100.2300, L501.5200, L503.6030 #### [facility] [address] [place], [address] Comprehensive Metabolic Prof ilon 10-06-2024 Albumin [Mass/Vol] 3.9 g/dL Normal 3.4-4.8 [facility] Comment on above: Performed By: #### L 100.9950, L503.6550, L500.4050, L100.0100, L501.2300, L3100.2300, L501.5200, L503.6030 #### [facility] [address] [place], [place], [id number] Albumin/Globulin [Mass ratio] 1.4 {ratio} Normal 0.9-2.4 [facility] Comment on above: Performed By: #### L 100.9950, L503.6550, L500.4050, L100.0100, L501.2300, L3100.2300, L501.5200, L503.6030 #### [facility] [address] [place], [place], [id number] ALK PHOS 114 U/L High 35-104 [facility] Comment on above: Performed By: #### L 100.9950, L503.6550, L500.4050, L100.0100, L501.2300, L3100.2300, L501.5200, L503.6030 #### [facility] [address] [place], [address] ALT [Catalytic activity/Vol] 13 U/L Normal <=34 [facility] Comment on above: Performed By: #### L 100.9950, L503.6550, L500.4050, L100.0100, L501.2300, L3100.2300, L501.5200, L503.6030 #### [facility] [address] [place], [place], [id number] AST [Catalytic activity/Vol] 18 U/L Normal <=31 [facility] Comment on above: Performed By: #### L 100.9950, L503.6550, L500.4050, L100.0100, L501.2300, L3100.2300, L501.5200, L503.6030 #### [facility] [address] [place], [address] Bilirubin [Mass/Vol] 0.53 mg/dL Normal 0.00-1.30 [facility] Comment on above: Performed By: #### L 100.9950, L503.6550, L500.4050, L100.0100, L501.2300, L3100.2300, L501.5200, L503.6030 #### [facility] [address] [place], [address] BUN/CRE 12.8 RATIO Normal 10-20 [facility] Comment on above: Performed By: #### L 100.9950, L503.6550, L500.4050, L100.0100, L501.2300, L3100.2300, L501.5200, L503.6030 #### [facility] [address] [place], [address] Calcium [Mass/Vol] 9.0 mg/dL Normal 7.6-11.0 [facility] Comment on above: Performed By: #### L 100.9950, L503.6550, L500.4050, L100.0100, L501.2300, L3100.2300, L501.5200, L503.6030 #### [facility] [address] [place], [address] Chloride [Moles/Vol] 104 mmol/L Normal 98-108 [facility] Comment on above: Performed By: #### L 100.9950, L503.6550, L500.4050, L100.0100, L501.2300, L3100.2300, L501.5200, L503.6030 #### [facility] [address] [place], [address] CO2 [Moles/Vol] 23.5 mmol/L Normal 21.0-32.0 [facility] Comment on above: Performed By: #### L 100.9950, L503.6550, L500.4050, L100.0100, L501.2300, L3100.2300, L501.5200, L503.6030 #### [facility] [address] [place], [place], [id number] Creatinine [Mass/Vol] 0.92 mg/dL Normal 0.70-1.20 [facility] Comment on above: Performed By: #### L 100.9950, L503.6550, L500.4050, L100.0100, L501.2300, L3100.2300, L501.5200, L503.6030 #### [facility] [address] [place], [place], [id number] (432) ECRCL 71.02 ml/min Normal 50-250 [facility] Comment on above: Performed By: #### L 100.9950, L503.6550, L500.4050, L100.0100, L501.2300, L3100.2300, L501.5200, L503.6030 #### [facility] [address] [place], [address] GAP 13 Normal 5-15 [facility] Comment on above: Performed By: #### L 100.9950, L503.6550, L500.4050, L100.0100, L501.2300, L3100.2300, L501.5200, L503.6030 #### [facility] [address] [place], [place], [id number] GFR/1.73 sq M.predicted among non-blacks MDRD (S/P/Bld) [Vol rate/Area] 69 mL/min/{1.73_m2} Normal >60 [facility] Comment on above: Result Comment: mL/m in/1.73m2 CKD-EPI Creatinine Equation (2020) Performed By: #### L 100.9950, L503.6550, L500.4050, L100.0100, L501.2300, L3100.2300, L501.5200, L503.6030 #### [facility] [address] [place], [address] Globulin (S) [Mass/Vol] 2.7 g/dL Normal 2.2-4.2 [facility] Comment on above: Performed By: #### L 100.9950, L503.6550, L500.4050, L100.0100, L501.2300, L3100.2300, L501.5200, L503.6030 #### [facility] [address] [place], [address] Glucose [Mass/Vol] 113 mg/dL High 70-99 [facility] Comment on above: Performed By: #### L 100.9950, L503.6550, L500.4050, L100.0100, L501.2300, L3100.2300, L501.5200, L503.6030 #### [facility] [address] [place], [address] Potassium [Moles/Vol] 3.5 mmol/L Normal 3.3-5.1 [facility] Comment on above: Performed By: #### L 100.9950, L503.6550, L500.4050, L100.0100, L501.2300, L3100.2300, L501.5200, L503.6030 #### [facility] [address] [place], [address] Sodium [Moles/Vol] 141 mmol/L Normal 133-145 [facility] Comment on above: Performed By: #### L 100.9950, L503.6550, L500.4050, L100.0100, L501.2300, L3100.2300, L501.5200, L503.6030 #### [facility] [address] [place], [address] T PROT 6.7 g/dL Normal 5.9-8.4 [facility] Comment on above: Performed By: #### L 100.9950, L503.6550, L500.4050, L100.0100, L501.2300, L3100.2300, L501.5200, L503.6030 #### [facility] [address] [place], [address] Urea nitrogen [Mass/Vol] 12 mg/dL Normal 4-19 [facility] Comment on above: Performed By: #### L 100.9950, L503.6550, L500.4050, L100.0100, L501.2300, L3100.2300, L501.5200, L503.6030 #### [facility] [address] [place], [address] Magnesiumon 10-06-2024 Magnesium [Mass/Vol] 2.4 mg/dL High 1.5-2.2 [facility] Comment on above: Performed By: #### L 100.9950, L503.6550, L500.4050, L100.0100, L501.2300, L3100.2300, L501.5200, L503.6030 #### [facility] [address] [place], [address] Oncology Visit Reporton 09-10 Oncology Visit Report [facility] [address] [facility] [place] [address] OFFICE VISIT Date of Service: 10/06/24928 MR#: [id number] Acct: [id number] Name: TRUDY CALLE Rep #: [id number] : 1960 From: Antoni Leach MD Age/Sex: 63/F [place] [facility] [place] Status: Signed HPI Subjective Date of Service 10/06/24 Chief Complaint Colon cancer History of Present Illness 63 YOF presented with hematochezia, had colonoscopy on 06/26/2024. It showed malignant partially obstructing tumor in the rectosigmoid, 8-10 centimeters from the anal verge. June 26, 2024 Sigmoid mass, biopsy: Invasive moderately differentiated adenocarcinoma Negative (no loss of mismatch protein; no microsatellite instability detected). July 04, 2024: Pelvic MRI: FINDINGS: * Circumferential 2.16 cm fungating mass invading all 3 layers of the wall of the distal sigmoid colon and rectosigmoid junction located 11 cm above the anal opening, see image #13/26 series 6. There is also extension of tumor through the outer covering of the distal sigmoid colon seen on image 12/26 series 6. This is also well visualized on the postcontrast image 22/44 series 14. 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 * No pelvic lymphadenopathy is present. * No marrow edema or lytic or blastic lesions or enhancing lesions are seen in the bony structures. * Bicornuate uterus noted. Unremarkable adnexa. Normal bilateral ovaries. Normal urinary bladder. Normal visualized small intestine. Normal remaining visualized colon. There is no pelvic fluid. There is no pelvic mass lesion or lymphadenopathy. Normal osseous structures. Normal abdominal wall. IMPRESSION: 1. Circumferential 2.16 cm fungating mass invading all 3 layers of the wall of the distal sigmoid colon and rectosigmoid junction located 11 cm above the anal opening, see image #13/26 series 6. There is also extension of tumor through the outer covering of the distal sigmoid colon seen on image 12/26 series 6. This is also well visualized on the postcontrast image 22/44 series 14. 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 There is also moderate diffuse thickening and edema and hyperenhancement of the inner mucosa and muscular portion of the wall of the entire rectum down to the anus most likely due to desmoplastic reaction from the above tumor. * High position: 10 to 15 cm above the anal sphincter * T3: tumor invades through the muscularis propria into the subserosa or into non-peritonealised perirectal tissues without reaching the mesorectal fascia or adjacent organs * Consultation with surgery/oncology recommended * Correlation with PET/CT imaging also recommended. * A CT of abdomen and pelvis with contrast can be obtained to evaluate the remaining structures for possible distal metastasis or involvement. PRIMARY TUMOR STAGING (T) Strictly speaking TNM staging, such as the [place] [employer] Committee on Cancer (AJCC) 8th edition, does not subclassify T3. However, this subclassification does have the treatment and prognostic significance 7,8; tumors with a stage T3b or less confer a 5-year cancer-specific survival rate of 85%, whereas tumors with a stage T3c or greater have a 54% survival rate. * Tx: primary tumor cannot be assessed * T0: no evidence of primary tumor * Tis: carcinoma in situ: intraepithelial or invasion of lamina propria * T1: tumor invades submucosa * T2: tumor invades muscularis propria * MRI does not yet have the resolution capable of enabling differentiation of T1 and T2 lesions * T3: tumor invades through the muscularis propria into the subserosa or into non-peritonealised perirectal tissues without reaching the mesorectal fascia or adjacent organs * T4: tumor invades directly into other organs or structures and/or perforates visceral peritoneum Tumor location: * High position: 10 to 15 cm above the anal sphincter * Mid position: 5 to 10 cm above the anal sphincter * Low position: 0 to 5 cm above the anal sphincter Layers of the rectum/rectosigmoid colon: * Submucosa * Muscularis propria * Mucosal rectum * Mesorectal fascia Peritoneal space Adjacent and distal organs July 17, 2024 CT chest abdomen and pelvis: IMPRESSION: 1. Constipation. Apparent thickening (more content not included)... Normal [facility] Phosphoruson 10-06-2024 Phosphate [Mass/Vol] 3.1 mg/dL Normal 2.7-4.5 [facility] Comment on above: Performed By: #### L 501.2300 ####[facility] [address] [place], [place], [address] Basic Metabolic Profile (BMP )on 09-29-2024 BUN/CRE 26.6 RATIO High 10-20 [facility] Comment on above: Performed By: #### L 501.2300, L501.5200, L100.0100, L500.2500 ####[facility] [address] [place], [address] Calcium [Mass/Vol] 9.2 mg/dL Normal 7.6-11.0 [facility] Comment on above: Performed By: #### L 501.2300, L501.5200, L100.0100, L500.2500 ####[facility] [address] [place], [address] Chloride [Moles/Vol] 98 mmol/L Normal 98-108 [facility] Comment on above: Performed By: #### L 501.2300, L501.5200, L100.0100, L500.2500 ####[facility] [address] [place], [address] CO2 [Moles/Vol] 24.2 mmol/L Normal 21.0-32.0 [facility] Comment on above: Performed By: #### L 501.2300, L501.5200, L100.0100, L500.2500 ####[facility] [address] [place], [address] Creatinine [Mass/Vol] 0.95 mg/dL Normal 0.70-1.20 [facility] Comment on above: Performed By: #### L 501.2300, L501.5200, L100.0100, L500.2500 ####[facility] [address] [place], [address] ECRCL 68.78 ml/min Normal 50-250 [facility] Comment on above: Performed By: #### L 501.2300, L501.5200, L100.0100, L500.2500 ####[facility] [address] [place], [address] GAP 12 Normal 5-15 [facility] Comment on above: Performed By: #### L 501.2300, L501.5200, L100.0100, L500.2500 ####[facility] [address] [place], [address] GFR/1.73 sq M.predicted among non-blacks MDRD (S/P/Bld) [Vol rate/Area] 67 mL/min/{1.73_m2} Normal >60 [facility] Comment on above: Result Comment: mL/m in/1.73m2 CKD-EPI Creatinine Equation (2020) Performed By: #### L 501.2300, L501.5200, L100.0100, L500.2500 ####[facility] [address] [place], [address] Glucose [Mass/Vol] 128 mg/dL High 70-99 [facility] Comment on above: Performed By: #### L 501.2300, L501.5200, L100.0100, L500.2500 ####[facility] [address] [place], [address] Potassium [Moles/Vol] 3.4 mmol/L Normal 3.3-5.1 [facility] Comment on above: Performed By: #### L 501.2300, L501.5200, L100.0100, L500.2500 ####[facility] [address] [place], [address] Sodium [Moles/Vol] 135 mmol/L Normal 133-145 [facility] Comment on above: Performed By: #### L 501.2300, L501.5200, L100.0100, L500.2500 ####[facility] [address] [place], [address] Urea nitrogen [Mass/Vol] 25 mg/dL High 4-19 [facility] Comment on above: Performed By: #### L 501.2300, L501.5200, L100.0100, L500.2500 ####[facility] [address] [place], [address] CBC W/Diff, Automatedon 04-2 Absolute Lymph 1.23 X10 3/uL Normal 0.83-4.51 [facility] Comment on above: Performed By: #### L 501.2300, L501.5200, L100.0100, L500.2500 ####[facility] [address] [place], [address] Absolute Neut 4.6 X10 3/uL Normal 2.0-7.7 [facility] Comment on above: Performed By: #### L 501.2300, L501.5200, L100.0100, L500.2500 ####[facility] [address] [place], [address] Basophils/100 WBC (Bld) 0.4 % Normal 0-1 [facility] Comment on above: Performed By: #### L 501.2300, L501.5200, L100.0100, L500.2500 ####[facility] [address] [place], [address] Eosinophils/100 WBC (Bld) 10.0 % High 0-5 [facility] Comment on above: Performed By: #### L 501.2300, L501.5200, L100.0100, L500.2500 ####[facility] [address] [place], [address] Erythrocyte distribution width (RBC) [Ratio] 13.5 % Normal 11.6-14.6 [facility] Comment on above: Performed By: #### L 501.2300, L501.5200, L100.0100, L500.2500 ####[facility] [address] [place], [address] Hematocrit (Bld) [Volume fraction] 36.5 % Low 37-47 [facility] Comment on above: Performed By: #### L 501.2300, L501.5200, L100.0100, L500.2500 ####[facility] [address] [place], [address] Hemoglobin (Bld) [Mass/Vol] 12.5 g/dL Normal 12.0-15.0 [facility] Comment on above: Performed By: #### L 501.2300, L501.5200, L100.0100, L500.2500 ####[facility] [address] [place], [address] IG% 0.600 Normal 0.0-0.9 [facility] Comment on above: Result Comment: IG% - Immature Granulocytes (promyelocytes, myelocytes and metamyelocytes) > 1% indicates that a LEFT SHIFT is Present. Performed By: #### L 501.2300, L501.5200, L100.0100, L500.2500 ####[facility] [address] [place], [address] Lymphocytes/100 WBC (Bld) 17.8 % Low 19-41 [facility] Comment on above: Performed By: #### L 501.2300, L501.5200, L100.0100, L500.2500 ####[facility] [address] [place], [address] MCH (RBC) [Entitic mass] 30.3 pg Normal 27.0-32.0 [facility] Comment on above: Performed By: #### L 501.2300, L501.5200, L100.0100, L500.2500 ####[facility] [address] [place], [address] MCHC (RBC) [Mass/Vol] 34.2 g/dL Normal 32-36 [facility] Comment on above: Performed By: #### L 501.2300, L501.5200, L100.0100, L500.2500 ####[facility] [address] [place], [address] MCV (RBC) [Entitic vol] 88.6 fL Normal 81-99 [facility] Comment on above: Performed By: #### L 501.2300, L501.5200, L100.0100, L500.2500 ####[facility] [address] [place], [address] Monocytes/100 WBC (Bld) 4.2 % Normal 0-10 [facility] Comment on above: Performed By: #### L 501.2300, L501.5200, L100.0100, L500.2500 ####[facility] [address] [place], [address] Neutrophils/100 WBC (Bld) 67.0 % Normal 47-70 [facility] Comment on above: Performed By: #### L 501.2300, L501.5200, L100.0100, L500.2500 ####[facility] [address] [place], [address] Nucleated RBC (Bld) [#/Vol] 0 10*3/uL Normal 0-5 [facility] Comment on above: Performed By: #### L 501.2300, L501.5200, L100.0100, L500.2500 ####[facility] [address] [place], [address] Platelet mean volume (Bld) [Entitic vol] 11.4 fL Normal 6.2-12.0 [facility] Comment on above: Performed By: #### L 501.2300, L501.5200, L100.0100, L500.2500 ####[facility] [address] [place], [address] Platelets (Bld) [#/Vol] 204 10*3/uL Normal 150-450 [facility] Comment on above: Performed By: #### L 501.2300, L501.5200, L100.0100, L500.2500 ####[facility] [address] [place], [address] RBC (Bld) [#/Vol] 4.12 10*6/uL Low 4.2-5.4 [facility] Comment on above: Performed By: #### L 501.2300, L501.5200, L100.0100, L500.2500 ####[facility] [address] [place], [address] RDW SD 43.9 fl Normal 35.1-43.9 [facility] Comment on above: Performed By: #### L 501.2300, L501.5200, L100.0100, L500.2500 ####[facility] [address] [place], [address] WBC (Bld) [#/Vol] 6.9 10*3/uL Normal 4.4-11.0 [facility] Comment on above: Performed By: #### L 501.2300, L501.5200, L100.0100, L500.2500 ####[facility] [address] [place], [address] Magnesiumon 09-29-2024 Magnesium [Mass/Vol] 2.1 mg/dL Normal 1.5-2.2 [facility] Comment on above: Performed By: #### L 501.2300, L501.5200, L100.0100, L500.2500 ####[facility] [address] [place], [address] Oncology Visit Reporton 09-10 Oncology Visit Report [facility] [address] [place] [address] OFFICE VISIT Date of Service: 09/29/24 0950 MR#: [id number] Acct: [id number] Name: TRUDY CALLE Rep #: [id number] : 1960 From: Ceci Hebert NP [employer] -C Age/Sex: 63/F Location: [facility] Status: Signed HPI Subjective Date of Service 09/29/24 Chief Complaint Colon cancer History of Present Illness 63 YOF presented with hematochezia, had colonoscopy on 06/26/2024. It showed malignant partially obstructing tumor in the rectosigmoid, 8-10 centimeters from the anal verge. June 26, 2024 Sigmoid mass, biopsy: Invasive moderately differentiated adenocarcinoma Negative (no loss of mismatch protein; no microsatellite instability detected). July 04, 2024: Pelvic MRI: FINDINGS: * Circumferential 2.16 cm fungating mass invading all 3 layers of the wall of the distal sigmoid colon and rectosigmoid junction located 11 cm above the anal opening, see image #13/26 series 6. There is also extension of tumor through the outer covering of the distal sigmoid colon seen on image 12/26 series 6. This is also well visualized on the postcontrast image 22/44 series 14. 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 * No pelvic lymphadenopathy is present. * No marrow edema or lytic or blastic lesions or enhancing lesions are seen in the bony structures. * Bicornuate uterus noted. Unremarkable adnexa. Normal bilateral ovaries. Normal urinary bladder. Normal visualized small intestine. Normal remaining visualized colon. There is no pelvic fluid. There is no pelvic mass lesion or lymphadenopathy. Normal osseous structures. Normal abdominal wall. IMPRESSION: 1. Circumferential 2.16 cm fungating mass invading all 3 layers of the wall of the distal sigmoid colon and rectosigmoid junction located 11 cm above the anal opening, see image #13/26 series 6. There is also extension of tumor through the outer covering of the distal sigmoid colon seen on image 12/26 series 6. This is also well visualized on the postcontrast image 22/44 series 14. 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 There is also moderate diffuse thickening and edema and hyperenhancement of the inner mucosa and muscular portion of the wall of the entire rectum down to the anus most likely due to desmoplastic reaction from the above tumor. * High position: 10 to 15 cm above the anal sphincter * T3: tumor invades through the muscularis propria into the subserosa or into non-peritonealised perirectal tissues without reaching the mesorectal fascia or adjacent organs * Consultation with surgery/oncology recommended * Correlation with PET/CT imaging also recommended. * A CT of abdomen and pelvis with contrast can be obtained to evaluate the remaining structures for possible distal metastasis or involvement. PRIMARY TUMOR STAGING (T) Strictly speaking TNM staging, such as the [place] Joint Committee on Cancer (AJCC) 8th edition, does not subclassify T3. However, this subclassification does have the treatment and prognostic significance 7,8; tumors with a stage T3b or less confer a 5-year cancer-specific survival rate of 85%, whereas tumors with a stage T3c or greater have a 54% survival rate. * Tx: primary tumor cannot be assessed * T0: no evidence of primary tumor * Tis: carcinoma in situ: intraepithelial or invasion of lamina propria * T1: tumor invades submucosa * T2: tumor invades muscularis propria * MRI does not yet have the resolution capable of enabling differentiation of T1 and T2 lesions * T3: tumor invades through the muscularis propria into the subserosa or into non-peritonealised perirectal tissues without reaching the mesorectal fascia or adjacent organs * T4: tumor invades directly into other organs or structures and/or perforates visceral peritoneum Tumor location: * High position: 10 to 15 cm above the anal sphincter * Mid position: 5 to 10 cm above the anal sphincter * Low position: 0 to 5 cm above the anal sphincter Layers of the rectum/rectosigmoid colon: * Submucosa * Muscularis propria * Mucosal rectum * Mesorectal fascia Peritoneal space Adjacent and distal organs July 17, 2024 CT chest abdomen and pelvis: IMPRESSION: 1. Constipation. Apparent thicke (more content not included)... Normal [facility] Phosphoruson 09-29-2024 Phosphate [Mass/Vol] 2.2 mg/dL Low 2.7-4.5 [facility] Comment on above: Performed By: #### L 501.2300, L501.5200, L100.0100, L500.2500 ####[facility] [address] [place], [address] Carcinoembryonic Antigenon 0 - CEA 3.8 ng/mL Normal 0.0-4.7 [facility] Comment on above: Order Comment: ADD O N FROM EARLIER LABS Result Comment: Nons mokers <3.9 Smokers <5.6 [facility] Electrochemiluminescence Immunoassay (ECLIA) Values obtained with different assay methods or kits cannot be used interchangeably. Results cannot be interpreted as absolute evidence of the presence or absence of malignant disease. Performed at: [facility] [employer] [id number] Rn Social Work: Osei Busch PhD, Phone: [phone] Performed By: #### L 100.9950, L503.6550, L500.4050, L100.0100, L501.2300, L3100.2300, L501.5200, L503.6030 #### [facility] [address] [place], [address] CBC W/Diff, Automatedon 04-1 Absolute Lymph 1.57 X10 3/uL Normal 0.83-4.51 [facility] Comment on above: Performed By: #### L 500.4050, L501.5200, L100.0100 ####[facility] [address] [place], [address] Absolute Neut 4.3 X10 3/uL Normal 2.0-7.7 [facility] Comment on above: Performed By: #### L 500.4050, L501.5200, L100.0100 ####[facility] [address] [place], [address] Basophils/100 WBC (Bld) 1.0 % Normal 0-1 [facility] Comment on above: Performed By: #### L 500.4050, L501.5200, L100.0100 ####[facility] [address] [place], [address] Eosinophils/100 WBC (Bld) 8.2 % High 0-5 [facility] Comment on above: Performed By: #### L 500.4050, L501.5200, L100.0100 ####[facility] [address] [place], [address] Erythrocyte distribution width (RBC) [Ratio] 13.8 % Normal 11.6-14.6 [facility] Comment on above: Performed By: #### L 500.4050, L501.5200, L100.0100 ####[facility] [address] [place], [address] Hematocrit (Bld) [Volume fraction] 36.0 % Low 37-47 [facility] Comment on above: Performed By: #### L 500.4050, L501.5200, L100.0100 ####[facility] [address] [place], [address] Hemoglobin (Bld) [Mass/Vol] 11.9 g/dL Low 12.0-15.0 [facility] Comment on above: Performed By: #### L 500.4050, L501.5200, L100.0100 ####[facility] [address] [place], [address] IG% 0.400 Normal 0.0-0.9 [facility] Comment on above: Result Comment: IG% - Immature Granulocytes (promyelocytes, myelocytes and metamyelocytes) > 1% indicates that a LEFT SHIFT is Present. Performed By: #### L 500.4050, L501.5200, L100.0100 ####[facility] [address] [place], [address] Lymphocytes/100 WBC (Bld) 22.2 % Normal 19-41 [facility] Comment on above: Performed By: #### L 500.4050, L501.5200, L100.0100 ####[facility] [address] [place], [address] MCH (RBC) [Entitic mass] 30.1 pg Normal 27.0-32.0 [facility] Comment on above: Performed By: #### L 500.4050, L501.5200, L100.0100 ####[facility] [address] [place], [address] MCHC (RBC) [Mass/Vol] 33.1 g/dL Normal 32-36 [facility] Comment on above: Performed By: #### L 500.4050, L501.5200, L100.0100 ####[facility] [address] [place], [address] MCV (RBC) [Entitic vol] 91.1 fL Normal 81-99 [facility] Comment on above: Performed By: #### L 500.4050, L501.5200, L100.0100 ####[facility] [address] [place], [address] Monocytes/100 WBC (Bld) 7.1 % Normal 0-10 [facility] Comment on above: Performed By: #### L 500.4050, L501.5200, L100.0100 ####[facility] [address] [place], [address] Neutrophils/100 WBC (Bld) 61.1 % Normal 47-70 [facility] Comment on above: Performed By: #### L 500.4050, L501.5200, L100.0100 ####[facility] [address] [place], [address] Nucleated RBC (Bld) [#/Vol] 0 10*3/uL Normal 0-5 [facility] Comment on above: Performed By: #### L 500.4050, L501.5200, L100.0100 ####[facility] [address] [place], [address] Platelet mean volume (Bld) [Entitic vol] 11.7 fL Normal 6.2-12.0 [facility] Comment on above: Performed By: #### L 500.4050, L501.5200, L100.0100 ####[facility] [address] [place], [address] Platelets (Bld) [#/Vol] 211 10*3/uL Normal 150-450 [facility] Comment on above: Performed By: #### L 500.4050, L501.5200, L100.0100 ####[facility] [address] [place], [address] RBC (Bld) [#/Vol] 3.95 10*6/uL Low 4.2-5.4 [facility] Comment on above: Performed By: #### L 500.4050, L501.5200, L100.0100 ####[facility] [address] [place], [address] RDW SD 46.5 fl High 35.1-43.9 [facility] Comment on above: Performed By: #### L 500.4050, L501.5200, L100.0100 ####[facility] [address] [place], [address] WBC (Bld) [#/Vol] 7.1 10*3/uL Normal 4.4-11.0 [facility] Comment on above: Performed By: #### L 500.4050, L501.5200, L100.0100 ####[facility] [address] [place], [address] Comprehensive Metabolic Prof ilon 09-22-2024 Albumin [Mass/Vol] 4.1 g/dL Normal 3.4-4.8 [facility] Comment on above: Performed By: #### L 100.9950, L503.6550, L500.4050, L100.0100, L501.2300, L3100.2300, L501.5200, L503.6030 #### [facility] [address] [place], [address] Albumin/Globulin [Mass ratio] 1.5 {ratio} Normal 0.9-2.4 [facility] Comment on above: Performed By: #### L 100.9950, L503.6550, L500.4050, L100.0100, L501.2300, L3100.2300, L501.5200, L503.6030 #### [facility] [address] [place], [address] ALK PHOS 107 U/L High 35-104 [facility] Comment on above: Performed By: #### L 100.9950, L503.6550, L500.4050, L100.0100, L501.2300, L3100.2300, L501.5200, L503.6030 #### [facility] [address] [place], [address] ALT [Catalytic activity/Vol] 15 U/L Normal <=34 [facility] Comment on above: Performed By: #### L 100.9950, L503.6550, L500.4050, L100.0100, L501.2300, L3100.2300, L501.5200, L503.6030 #### [facility] [address] [place], [address] AST [Catalytic activity/Vol] 16 U/L Normal <=31 [facility] Comment on above: Performed By: #### L 100.9950, L503.6550, L500.4050, L100.0100, L501.2300, L3100.2300, L501.5200, L503.6030 #### [facility] [address] [place], [address] Bilirubin [Mass/Vol] 0.36 mg/dL Normal 0.00-1.30 [facility] Comment on above: Performed By: #### L 100.9950, L503.6550, L500.4050, L100.0100, L501.2300, L3100.2300, L501.5200, L503.6030 #### [facility] [address] [place], [address] BUN/CRE 21.9 RATIO High 10-20 [facility] Comment on above: Performed By: #### L 100.9950, L503.6550, L500.4050, L100.0100, L501.2300, L3100.2300, L501.5200, L503.6030 #### [facility] [address] [place], [address] Calcium [Mass/Vol] 9.4 mg/dL Normal 7.6-11.0 [facility] Comment on above: Performed By: #### L 100.9950, L503.6550, L500.4050, L100.0100, L501.2300, L3100.2300, L501.5200, L503.6030 #### [facility] [address] [place], [address] Chloride [Moles/Vol] 104 mmol/L Normal 98-108 [facility] Comment on above: Performed By: #### L 100.9950, L503.6550, L500.4050, L100.0100, L501.2300, L3100.2300, L501.5200, L503.6030 #### [facility] [address] [place], [address] CO2 [Moles/Vol] 24.4 mmol/L Normal 21.0-32.0 [facility] Comment on above: Performed By: #### L 100.9950, L503.6550, L500.4050, L100.0100, L501.2300, L3100.2300, L501.5200, L503.6030 #### [facility] [address] [place], [place], [id number] (210) Creatinine [Mass/Vol] 0.87 mg/dL Normal 0.70-1.20 [facility] Comment on above: Performed By: #### L 100.9950, L503.6550, L500.4050, L100.0100, L501.2300, L3100.2300, L501.5200, L503.6030 #### [facility] [address] [place], [place], [id number] ECRCL 76.02 ml/min Normal 50-250 [facility] Comment on above: Performed By: #### L 100.9950, L503.6550, L500.4050, L100.0100, L501.2300, L3100.2300, L501.5200, L503.6030 #### [facility] [address] [place], [place], [id number] GAP 11 Normal 5-15 [facility] Comment on above: Performed By: #### L 100.9950, L503.6550, L500.4050, L100.0100, L501.2300, L3100.2300, L501.5200, L503.6030 #### [facility] [address] [place], [place], [id number] (819) GFR/1.73 sq M.predicted among non-blacks MDRD (S/P/Bld) [Vol rate/Area] 74 mL/min/{1.73_m2} Normal >60 [facility] Comment on above: Result Comment: mL/m in/1.73m2 CKD-EPI Creatinine Equation (2020) Performed By: #### L 100.9950, L503.6550, L500.4050, L100.0100, L501.2300, L3100.2300, L501.5200, L503.6030 #### [facility] [address] [place], [address] Globulin (S) [Mass/Vol] 2.7 g/dL Normal 2.2-4.2 [facility] Comment on above: Performed By: #### L 100.9950, L503.6550, L500.4050, L100.0100, L501.2300, L3100.2300, L501.5200, L503.6030 #### [facility] [address] [place], [address] Glucose [Mass/Vol] 135 mg/dL High 70-99 [facility] Comment on above: Performed By: #### L 100.9950, L503.6550, L500.4050, L100.0100, L501.2300, L3100.2300, L501.5200, L503.6030 #### [facility] [address] [place], [address] Potassium [Moles/Vol] 3.6 mmol/L Normal 3.3-5.1 [facility] Comment on above: Performed By: #### L 100.9950, L503.6550, L500.4050, L100.0100, L501.2300, L3100.2300, L501.5200, L503.6030 #### [facility] [address] [place], [address] Sodium [Moles/Vol] 139 mmol/L Normal 133-145 [facility] Comment on above: Performed By: #### L 100.9950, L503.6550, L500.4050, L100.0100, L501.2300, L3100.2300, L501.5200, L503.6030 #### [facility] [address] [place], [address] T PROT 6.8 g/dL Normal 5.9-8.4 [facility] Comment on above: Performed By: #### L 100.9950, L503.6550, L500.4050, L100.0100, L501.2300, L3100.2300, L501.5200, L503.6030 #### [facility] [address] [place], [address] Urea nitrogen [Mass/Vol] 19 mg/dL Normal 4-19 [facility] Comment on above: Performed By: #### L 100.9950, L503.6550, L500.4050, L100.0100, L501.2300, L3100.2300, L501.5200, L503.6030 #### [facility] [address] [place], [address] Magnesiumon 09-22-2024 Magnesium [Mass/Vol] 2.1 mg/dL Normal 1.5-2.2 [facility] Comment on above: Performed By: #### L 100.9950, L503.6550, L500.4050, L100.0100, L501.2300, L3100.2300, L501.5200, L503.6030 #### [facility] [address] [facility] [place], [place], [address] Oncology Visit Reporton 09-09 Oncology Visit Report [facility] [address] [facility] [place] [address] OFFICE VISIT Date of Service: 09/22/24917 MR#: [id number] Acct: [id number] Name: TRUDY CALLE Rep #: [id number] : 1960 From: Antoni Leach MD Age/Sex: 63/F [place] [facility] [place] Status: Signed HPI Subjective Date of Service 09/22/24 Chief Complaint Colon cancer History of Present Illness 63 YOF presented with hematochezia, had colonoscopy on 06/26/2024. It showed malignant partially obstructing tumor in the rectosigmoid, 8-10 centimeters from the anal verge. June 26, 2024 Sigmoid mass, biopsy: Invasive moderately differentiated adenocarcinoma Negative (no loss of mismatch protein; no microsatellite instability detected). July 04, 2024: Pelvic MRI: FINDINGS: * Circumferential 2.16 cm fungating mass invading all 3 layers of the wall of the distal sigmoid colon and rectosigmoid junction located 11 cm above the anal opening, see image #13/26 series 6. There is also extension of tumor through the outer covering of the distal sigmoid colon seen on image 12/26 series 6. This is also well visualized on the postcontrast image 22/44 series 14. 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 * No pelvic lymphadenopathy is present. * No marrow edema or lytic or blastic lesions or enhancing lesions are seen in the bony structures. * Bicornuate uterus noted. Unremarkable adnexa. Normal bilateral ovaries. Normal urinary bladder. Normal visualized small intestine. Normal remaining visualized colon. There is no pelvic fluid. There is no pelvic mass lesion or lymphadenopathy. Normal osseous structures. Normal abdominal wall. IMPRESSION: 1. Circumferential 2.16 cm fungating mass invading all 3 layers of the wall of the distal sigmoid colon and rectosigmoid junction located 11 cm above the anal opening, see image #13/26 series 6. There is also extension of tumor through the outer covering of the distal sigmoid colon seen on image 12/26 series 6. This is also well visualized on the postcontrast image 22/44 series 14. 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 There is also moderate diffuse thickening and edema and hyperenhancement of the inner mucosa and muscular portion of the wall of the entire rectum down to the anus most likely due to desmoplastic reaction from the above tumor. * High position: 10 to 15 cm above the anal sphincter * T3: tumor invades through the muscularis propria into the subserosa or into non-peritonealised perirectal tissues without reaching the mesorectal fascia or adjacent organs * Consultation with surgery/oncology recommended * Correlation with PET/CT imaging also recommended. * A CT of abdomen and pelvis with contrast can be obtained to evaluate the remaining structures for possible distal metastasis or involvement. PRIMARY TUMOR STAGING (T) Strictly speaking TNM staging, such as the [place] Joint Committee on Cancer (AJCC) 8th edition, does not subclassify T3. However, this subclassification does have the treatment and prognostic significance 7,8; tumors with a stage T3b or less confer a 5-year cancer-specific survival rate of 85%, whereas tumors with a stage T3c or greater have a 54% survival rate. * Tx: primary tumor cannot be assessed * T0: no evidence of primary tumor * Tis: carcinoma in situ: intraepithelial or invasion of lamina propria * T1: tumor invades submucosa * T2: tumor invades muscularis propria * MRI does not yet have the resolution capable of enabling differentiation of T1 and T2 lesions * T3: tumor invades through the muscularis propria into the subserosa or into non-peritonealised perirectal tissues without reaching the mesorectal fascia or adjacent organs * T4: tumor invades directly into other organs or structures and/or perforates visceral peritoneum Tumor location: * High position: 10 to 15 cm above the anal sphincter * Mid position: 5 to 10 cm above the anal sphincter * Low position: 0 to 5 cm above the anal sphincter Layers of the rectum/rectosigmoid colon: * Submucosa * Muscularis propria * Mucosal rectum * Mesorectal fascia Peritoneal space Adjacent and distal organs July 17, 2024 CT chest abdomen and pelvis: IMPRESSION: 1. Constipation. Apparent thickening (more content not included)... Normal [facility] Serum or plasma carcinoembry onic antigen measurement (mass/volume)Ordered By: Antoni Leach on 09-22-2024 Carcinoembryonic Ag [Mass/Vol] 3.8 ng/mL 0.0-4.7 [facility] Comment on above: Nonsmokers <3.9 Smok ers <5.6[employer] Electrochemiluminescence Immunoassay(ECLIA)Values obtained with different assay methods or kitscannot be used interchangeably. Results cannot beinterpreted as absolute evidence of the presence orabsence of malignant disease.Performed at: [facility], [place] [id number] Director: Osei Busch PhD, Phone: [phone] CXR for Line Placementon CXR for Line Placement [facility] Imaging Services [address] [address] CXR for Line Placement MR#: [id number] Acct: [id number] Name: TRUDY CALLE Rep #: [id number] : 1960 F 63 From: Siddhartha Taveras MD PCP: Dr. Antoni Slaughter MD Status: REG [facility] Study: CXR for Line Placement Date of Exam: 09/17/24 Exam# [id number] Ordering Dr: Humberto Leigh EXAM: AP UPRIGHT PORTABLE CHEST CLINICAL HISTORY: Checking for line placement. COMPARISON: CT chest dated 07/17/2024. TECHNIQUE: Single frontal portable projection of the chest. FINDINGS: Lungs: Lungs clear of pneumonia and congestion. An area of discoid atelectasis, left upper lobe. Pleura: No pleural effusions, thickening, or pneumothorax. Heart: Normal in size and configuration. Mediastinum/Ingrid: Unremarkable. Great vessels: Aorta is atherosclerotic and tortuous. Bones/soft tissues: Unremarkable. A right Port-A-Cath is noted. RAD/CXR for Line Placement IMPRESSION: A right-sided Port-A-Cath. No active cardiopulmonary disease. Reading Location: [place] [address] CC: Dr. Humberto Leigh MD; Dr. Antoni Slaughter MD Installation Coordinator: Signed Normal [facility] Discharge Instructionon Discharge Instruction [facility] Medical Records Department [address] [place] [address] Instructions for Home/Discharge Instructions 09/17/24 0938 MR#: [id number] Acct: [id number] Name: TRUDY CALLE Rep #: [id number] : 1960 63 From: Humberto Leigh MD PCP: Dr. Antoni Slaughter MD Status:REG [facility] Discharge Instructions Procedure Port-A-Cath Diet Discharge Diet: Light diet - advance as tolerated (Pain medication may cause nausea. You should typically eat light foods as you take your pain medication.) Activity Discharge Activity: Return to Normal Activity and May Shower (with your bandage in place in 1-2 days after surgery. DO NOT SHOWER WHEN YOUR PORT IS ACCESSED.) Additional Activity Instructions:: Resume Plavix on Sunday Alternate ibuprofen and Tylenol for pain control Dressing / Incision Call your doctor if your incision/area has: Continuous Slow Oozing, Sudden Increased Bleeding, Increased Pain/ Swelling, Increased Redness and Foul Smelling Discharge Call your doctor if you observe: Fever of 101 or Higher Remove Dressing in: 2 days Cleanse incision/area with: Soap Water Follow Up Care Please Follow Up With: Humberto Leigh MD When: as needed [phone] Test Results: Test results from this visit will be discussed in further detail at your follow-up appointment, if applicable. Discharge Plan Admission Attending Provider: Humberto Leigh Primary Care Provider: Antoni Slaughter Instructions Print Language: Zambian Discharge Orders/Prescriptions Prescriptions: No Action losartan 100 mg tablet 100 mg PO DAILY Qty: 90 1RF hydrochlorothiazide 25 mg tablet 25 mg PO QAM Qty: 90 1RF clopidogrel 75 mg tablet 75 mg PO DAILY Qty: 90 1RF Patient Comments: STOP 5 DAYS PRIOR TO PROCEDURE-LAST DOSE 09/11/2024 ondansetron 8 mg tablet,disintegrating 8 mg PO Q8H PRN (Reason: nausea and vomiting) Qty: 30 2RF lidocaine-prilocaine 2.5-2.5 % cream 1 applic topical ONCE PRN (Reason: port access) 30 Days Qty: 30 2RF prochlorperazine maleate 10 mg tablet 10 mg PO Q6H PRN (Reason: nausea and vomiting) Qty: 30 2RF potassium iodide 65 mg tablet 130 mg PO QDAY PRN (Reason: pain) carvedilol 6.25 mg tablet 6.25 mg PO DAILY Qty: 90 1RF levothyroxine 150 mcg tablet 150 mcg PO DAILY Qty: 120 1RF Rx Instructions: Take 150 mcg 6 days a week and 225 mcg 1 day a week. atorvastatin 40 mg tablet 40 mg PO DAILY Qty: 90 1RF Referrals / Follow Up: Antoni Slaughter MD [Primary Care Provider] - Disposition Disposition (needs filled in before D/C Order can be placed): Home, Self Care 09/17/24937 Humberto Leigh MD CC: Dr. Antoni Slaughter MD Signed [facility] MR/POSTOP.ANEon 09-17-2024 MR/POSTOP.[facility] Medical Records Department [address] [place] [address] Anesthesia Postop Eval I 09/17/24 0943 MR#: [id number] Acct: [id number] Name: TRUDY CALLE Rep #: [id number] : 1960 63 From: Tristin Phipps CRNA PCP: Dr. Antoni Slaughter MD Status:REG SD Y Race: C Location: [place] [address] Anesthesia: Postop Eval I Current Vital Signs Temperature: 98.6 F Pulse Rate: 78 Blood Pressure: 100/56 Respiratory Rate: 20 Pulse Ox: 95 Oxygen Delivery Method: Room Air Assessment Airway patent: Yes Spontaneous unlabored respirations: Yes Mental status: Awake and Calm nausea: No Vomiting: No Anesthesia Complication: No Fluid Hydration Crystalloid volume administer (ml): 400 Total IV fluid infused: 400 Progress Note Anesthesia document: Postop Eval 1 completed: Yes 09/17/24943 Date Tristin Phipps CRNA [facility] Signature: Date CC: Signed [facility] MR/[id number] 09-17-2024 MR/POSTOPAN2 [facility] Medical Records Department [address] [place] [address] Anesthesia Postop Eval II 09/17/24 1106 MR#: [id number] Acct: [id number] Name: TRUDY CALLE Rep #: [id number] : 1960 63 From: Nancy Neely PCP: Dr. Antoni Slaughter MD Status:DEP [facility] Y Race: C Location: [facility] Anesthesia Postop Eval I Sum Postop Eval Completion status Anesthesia document: Postop Eval 1 completed: Yes Anesthesia Postop Eval I Summary Anesthesia Postop Eval I Summary: Anesthesia Postop Eval I: Assessment Summary Airway patent Yes 09/17/24 09:44 TEST CENTER ADMINISTRATOR.[email or web address] Spontaneous unlabored Yes 09/17/24 09:44 TEST CENTER ADMINISTRATOR.PKEL respirations Mental status Awake,Calm 09/17/24 09:44 TEST CENTER ADMINISTRATOR.[email or web address] nausea No 09/17/24 09:44 TEST CENTER ADMINISTRATOR.[email or web address] Vomiting No 09/17/24 09:44 TEST CENTER ADMINISTRATOR.[email or web address] Anesthesia Postop Eval I: Fluid Summary Crystalloid volume administer 400 09/17/24 09:44 TEST CENTER ADMINISTRATOR.PKEL (ml) Colloids volume administered ( ml) Blood Product volume administered (ml) Total IV fluid infused 400 09/17/24 09:44 TEST CENTER ADMINISTRATOR.PKEL Anesthesia Postop Eval I: Summary Notes Anesthesia Complication No 09/17/24 09:44 TEST CENTER ADMINISTRATOR.[email or web address] Anesthesia Complication Comment: Post-operative progress note Anesthesia: Postop Eval II Evaluation Mental status: Awake Pain Level: 1 nausea: No Vomiting: No 09/17/24 1106 Date Nancy Goodwin Signature: Date CC: Signed Normal [facility] Operative Reporton Operative Report [facility] Medical Records Department [address] [place] [address] Operative Report 09/17/24936 MR#: [id number] Acct: [id number] Name: TRUDY CALLE Rep #: [id number] : 1960 63 From: Humberto Leigh MD PCP: Dr. Antoni Slaughter MD Status:REG [facility] Location: [place] [address] Operative Report (Standard) Operative Information Date of Procedure: 09/17/24 Pre-Operative Diagnosis: Need for vascular access for chemotherapy Post-Operative Diagnosis: Same Surgery/Procedure Performed: Ultrasound and fluoroscopy guided right chest port placement utilizing right IJ gravel inspector: No Type of Anesthesia: Local MAC RN Documented Start/Stop Times: Operation Date: 09/17/24 09:00 Case Time Into Pre-Op 09/17/24 07:30 Anesthesia Start 09/17/24 09:00 Into Room 09/17/24 09:00 Procedure Start 09/17/24 09:14 Procedure End 09/17/24 09:31 Anesthesia End 09/17/24 09:36 Out of Room 09/17/24 09:36 Procedure Start Time: 09:14 Procedure Stop Time: 09:31 Select all DRAINS/GRAFTS/IMPLANTS that apply: Implanted device Implanted device details: 8 [employer] PowerPort Estimated Blood Loss: 5 Specimen collected: No Description of surgery: After obtaining informed consent patient was brought back to the operating room MAC anesthesia was induced and the right chest and neck were prepped in normal sterile fashion. Ultrasound was used to evaluate both IJs and the right IJ was selected. Next, using a needle, the right IJ was accessed and a guidewire was passed on into the superior vena cava under fluoroscopy guidance. A small incision was made over the puncture site and the dilator introducer was placed over the guidewire. Next this was capped and the pocket was made for the port. 1% lidocaine with epinephrine was injected in the proposed port site. An incision was made with scalpel. Electrocautery was used to make a pocket under the skin and subcutaneous tissue. Hemostasis was obtained. Next, the catheter was tunneled up to the neck incision site and placed through the introducer. The peel-away introducer was removed and the position of the catheter was confirmed on fluoroscopy. Next, the catheter was trimmed and attached to the port with the locking device. Interrupted 2-0 Vicryl sutures were used to anchor the port to the chest wall and then the port was placed inside the pocket. The pocket was then flushed with saline and the port irrigated with saline. There was good blood return and the port flushed easily. Next, heparin was injected into the port. The skin was closed with subcutaneous interrupted 3-0 Vicryl sutures. A single 3-0 Vicryl sutures placed under the skin at the neck incision site. Steri-Strips were placed as well as op sites. Patient tolerated procedure well, was taken to PACU in stable condition. Chest x-ray will be obtained. Surgical Findings: 8 [employer] Complications Complications: No Admit VTE Documentation VTE Mechan Device Prophylaxis: SCD's 09/17/24 0938 Cosigner Signature (if applicable): CC: Dr. Humberto Leigh MD; Dr. Antoni Slaughter MD Signed [facility] 09-12-2024 [facility] Telephone ([facility]) -- TRUDY CALLE ([id number]) 1960 F Date Time Provider Department 09/12/24 LUIS F HURTADO During your visit today, we recorded the following information about you: Luis F Hurtado RN 09/12/2024 1:40 PM Signed [facility] LIFE ENRICHMENT ASSISTANT ONE MONTH FOLLOW UP PHONE CALL PHONE CALL DATE: 09/12/2024 PHONE CALL TIME: 1:39 PM DATE OF SURGERY: 08/14/2024 PROCEDURE: Robotic LAR FOLLOW UP QUESTIONS: Is your appetite gradually improving? Yes Is your incision healing well? Yes Are you having regular bowel movements? Yes Did you have a good experience with your recent hospital stay? Yes Have you completed your follow up visit with your surgeon? Yes Patient states recovery is going well. She has no concerns at this time. Encouraged to call MD with any questions/concerns. 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 - clopidogrel (PLAVIX) 75 mg tablet Take 75 mg by mouth once daily. - losartan (COZAAR) 100 mg tablet Take 100 mg by mouth once daily. - hydroCHLOROthiazide 25 mg tablet Take 25 mg by mouth once daily. - promethazine (PHENERGAN) 25 mg tablet Take 1 tab by mouth every 4 hours as needed for nausea. - atorvastatin (LIPITOR) 20 mg tablet Take 1 tablet by mouth every afternoon. - carvedilol (COREG) 6.25 mg tablet Take 1 tablet by mouth every afternoon. Problem List As Of Date 09/12/2024 Noted Resolved Hyperlipidemia [E78.5] Hypertension [I10] Hypothyroidism [E03.9] Pre-op exam [Z01.818] 08/07/2024 Rectal cancer (HCC) [C20] 08/07/2024 PVD (peripheral vascular disease) (HCC) [I73.9] 08/07/2024 PAD (peripheral artery disease) (HCC) [I73.9] 08/07/2024 Nicotine use [Z72.0] 08/07/2024 Obesity, Class I, BMI 30-34.9 [E66.811] 08/11/2024 Encounter Status:Closed by LUIS F HURTADO on 09/12/24 Normal [facility] Oncology Visit Reporton 04-0 Oncology Visit Report [facility] [address] [place] [address] OFFICE VISIT Date of Service: 09/09/24 1456 MR#: [id number] Acct: [id number] Name: TRUDY ACLLE Rep #: [id number] : 1960 From: Ceci Hebert NP 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 It showed malignant partially obstructing tumor in the rectosigmoid, 8-10 centimeters from the anal verge. June 26, 2024 Sigmoid mass, biopsy: Invasive moderately differentiated adenocarcinoma Negative (no loss of mismatch protein; no microsatellite instability detected). July 04, 2024: Pelvic MRI: FINDINGS: * Circumferential 2.16 cm fungating mass invading all 3 layers of the wall of the distal sigmoid colon and rectosigmoid junction located 11 cm above the anal opening, see image #13/26 series 6. There is also extension of tumor through the outer covering of the distal sigmoid colon seen on image 12/26 series 6. This is also well visualized on the postcontrast image 22/44 series 14. 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 * No pelvic lymphadenopathy is present. * No marrow edema or lytic or blastic lesions or enhancing lesions are seen in the bony structures. * Bicornuate uterus noted. Unremarkable adnexa. Normal bilateral ovaries. Normal urinary bladder. Normal visualized small intestine. Normal remaining visualized colon. There is no pelvic fluid. There is no pelvic mass lesion or lymphadenopathy. Normal osseous structures. Normal abdominal wall. IMPRESSION: 1. Circumferential 2.16 cm fungating mass invading all 3 layers of the wall of the distal sigmoid colon and rectosigmoid junction located 11 cm above the anal opening, see image #13/26 series 6. There is also extension of tumor through the outer covering of the distal sigmoid colon seen on image 12/26 series 6. This is also well visualized on the postcontrast image 22/44 series 14. 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 There is also moderate diffuse thickening and edema and hyperenhancement of the inner mucosa and muscular portion of the wall of the entire rectum down to the anus most likely due to desmoplastic reaction from the above tumor. * High position: 10 to 15 cm above the anal sphincter * T3: tumor invades through the muscularis propria into the subserosa or into non-peritonealised perirectal tissues without reaching the mesorectal fascia or adjacent organs * Consultation with surgery/oncology recommended * Correlation with PET/CT imaging also recommended. * A CT of abdomen and pelvis with contrast can be obtained to evaluate the remaining structures for possible distal metastasis or involvement. PRIMARY TUMOR STAGING (T) Strictly speaking TNM staging, such as the [place] Joint Committee on Cancer (AJCC) 8th edition, does not subclassify T3. However, this subclassification does have the treatment and prognostic significance 7,8; tumors with a stage T3b or less confer a 5-year cancer-specific survival rate of 85%, whereas tumors with a stage T3c or greater have a 54% survival rate. * Tx: primary tumor cannot be assessed * T0: no evidence of primary tumor * Tis: carcinoma in situ: intraepithelial or invasion of lamina propria * T1: tumor invades submucosa * T2: tumor invades muscularis propria * MRI does not yet have the resolution capable of enabling differentiation of T1 and T2 lesions * T3: tumor invades through the muscularis propria into the subserosa or into non-peritonealised perirectal tissues without reaching the mesorectal fascia or adjacent organs * T4: tumor invades directly into other organs or structures and/or perforates visceral peritoneum Tumor location: * High position: 10 to 15 cm above the anal sphincter * Mid position: 5 to 10 cm above the anal sphincter * Low position: 0 to 5 cm above the anal sphincter Layers of the rectum/rectosigmoid colon: * Submucosa * Muscularis propria * Mucosal rectum * Mesorectal fascia Peritoneal space Adjacent and distal organs July 17, 2024 CT chest abdomen and pelvis: IMPRESSION: 1. Constipation. Apparent thicke (more content not included)... Normal [facility] Surgery Visit Reporton 09-08 Surgery Visit Report [facility] [address] [place] [address]. [address] [place] [address] OFFICE VISIT Date of Service: 09/08/24 MR#: [id number] Acct: [id number] Name: TRUDY CALLE Rep #: [id number] : 1960 Provider: Dr. Humberto munoz MD Age/Sex: 63/F [place] [facility] [place] [place] Status: Signed with Addenda ADDENDUM by Desi Wagoner on 09/08/24 at 0916 Intake Chief Complaint: port placement Allergies No Known Allergies Allergy (Verified 09/08/24 08:54) Medications ???Medication ???Instructions ???Recorded ???Confirmed ???Type clopidogrel 75 mg tablet 75 mg PO DAILY #90 tabs 11/01/23 0 09/08/24 Rx hydrochlorothiazide 25 mg tablet 25 mg PO QAM #90 tabs 11/01/23 Rx losartan 100 mg tablet 100 mg PO DAILY #90 tabs 11/01/23 09/08/24 Rx carvedilol 6.25 mg tablet 6.25 mg PO DAILY #90 tabs 05/02/24 09/08/24 Rx atorvastatin 40 mg tablet 40 mg PO DAILY #90 tabs 08/04/24 0 09/08/24 Rx levothyroxine 150 mcg tablet 150 mcg PO DAILY #120 tabs 5 09/08/24 Rx potassium iodide 65 mg tablet 130 mg PO QDAY 09/08/24 09/08/24 H istory Assessment and Plan Assessment and Plan (1) Colorectal cancer: Status: Acute 09/08/24917 Date Humberto Leigh MD cc: * Signed Intake Vital Signs 09/04/24 13:38 09/08/24 08:54 Height 5 ft 7 in 5 ft 7 in BP 146/83 H 113/72 Blood Pressure Location Lt brachial Rt brachial Position Sitting Sitting Respiration 16 16 Pulse 67 Pulse Source Monitor Temp 96.5 F L Pulse Oximetry (%) 97 Oxygen Delivery Method room air Intake Visit Reasons: PORT PLACEMENT Chief Complaint: port placement Rural Carrier Required: No Is patient in pain?: No Allergies No Known Allergies Allergy (Verified 09/08/24 08:54) Medications ???Medication ???Instructions ???Recorded ???Confirmed ???Type clopidogrel 75 mg tablet 75 mg PO DAILY #90 tabs 11/01/23 0 09/08/24 Rx hydrochlorothiazide 25 mg tablet 25 mg PO QAM #90 tabs 11/01/23 Rx losartan 100 mg tablet 100 mg PO DAILY #90 tabs 11/01/23 09/08/24 Rx carvedilol 6.25 mg tablet 6.25 mg PO DAILY #90 tabs 05/02/24 09/08/24 Rx atorvastatin 40 mg tablet 40 mg PO DAILY #90 tabs 08/04/24 0 09/08/24 Rx levothyroxine 150 mcg tablet 150 mcg PO DAILY #120 tabs 5 09/08/24 Rx potassium iodide 65 mg tablet 130 mg PO QDAY 09/08/24 09/08/24 H istory Have you fallen in the past year?: No PFSH Medical History Regional lymph node metastasis present Wears glasses Smoker History of echocardiogram Cardiology follow-up encounter Wears dentures Blood in stool Chronic constipation Hyperlipidemia Health care maintenance Hypothyroidism Thyroid disease Hypertension Surgical History S/P colectomy History of tonsillectomy ( 1963) Family History Father Heart disease Mother Breast cancer Heart disease Social History Smoking Status: Current every day smoker tobacco type: cigarettes alcohol intake: current alcohol intake frequency: holidays/special occasions only substance use type: does not use what type of physical activity do you participate in: walking and other details: work frequency: 5-6 times per week HPI HPI HPI: Patient is a 63-year-old female here for right chest port placement. She has colon cancer which was positive in the lymph nodes. ROS General General: Yes colon cancer; No weight change, appetite, fatigue, breast cancer or weakness HEENT HEENT: No difficulty swallowing, eye injury, eye surgery, swollen glands or hoarseness Endo Endocrine: Yes thyroid disease; No diabetes mellitus, thyroid cancer, Hair loss, heat intolerance or cold intolerance Skin Skin: No rash or changing moles Breast Breast: No left breast lump, right breast lump, nipple discharge, breast pain, abnormal mammogram, abnormal US or breast enlargement Musc Musculoskeletal: No back problems, arthritis, rheumatoid arthritis, gout or joint pain Cardio Cardiovascular: Yes high blood pressure; No murmur, pacemaker, heart disease, atrial fibrillation, heart attack, heart stent, palpitations, shortness of breath with exertion or chest pain Psych Psychiatric: No depression, anxiety or hearing voices Resp Respiratory: No shortness of breath, No sleep apnea, No cough, No COPD, No asthma, No emphysema and No wheezing Gastro Gastrointestinal: No abdominal pain, No nausea or vomiting, No diarrhea, No constipation, No blood in stool, No acid reflux, No hemorrhoids, No ulcers, No gallbladder problem and No black,tarry s (more content not included)... Normal [facility] Carcinoembryonic Antigenon 0 09-06-2024 CEA 5.6 ng/mL High 0.0-4.7 [facility] Comment on above: Result Comment: Nons mokers <3.9 Smokers <5.6 [employer] Electrochemiluminescence Immunoassay (ECLIA) Values obtained with different assay methods or kits cannot be used interchangeably. Results cannot be interpreted as absolute evidence of the presence or absence of malignant disease. Performed at: [employer] [id number] Rn Social Work: Osei Bucsh PhD, Phone: [phone] Performed By: #### L 100.9950, L503.6550, L500.4050, L100.0100, L501.2300, L3100.2300, L501.5200, L503.6030 ####[facility] [id number] [place], [place], [id number] Absolute neutrophil countOrd ered By: Antoni Leach on 09-04-2024 Neutrophils (Bld) [#/Vol] 4.8 10*3/uL 2.0-7.7 [facility] Anion gap in Serum or Plasma Ordered By: Antoni Leach on 09-04-2024 Anion gap [Moles/Vol] 15 mmol/L 5-15 [facility] Automated blood erythrocyte countOrdered By: Antoni Leach on 09-04-2024 RBC (Bld) [#/Vol] 3.84 10*6/uL Low 4.2-5.4 [facility] Comment on above: Performed By: #### L 100.9950, L503.6550, L500.4050, L100.0100, L501.2300, L3100.2300, L501.5200, L503.6030 #### [facility] [address] [place], [address] Automated blood hematocrit ( percentage)Ordered By: Antoni Leach on 09-04-2024 Hematocrit (Bld) [Volume fraction] 35.2 % Low 37-47 [facility] Comment on above: Performed By: #### L 100.9950, L503.6550, L500.4050, L100.0100, L501.2300, L3100.2300, L501.5200, L503.6030 #### [facility] [address] [place], [address] Automated lymphocyte count a s percentage of total leukocytesOrdered By: Antoni Leach on 09-04-2024 Lymphocytes/100 WBC (Bld) 24.1 % Normal 19-41 [facility] Comment on above: Performed By: #### L 100.9950, L503.6550, L500.4050, L100.0100, L501.2300, L3100.2300, L501.5200, L503.6030 #### [facility] [address] [place], [address] BUN/creatinine ratioOrdered By: Antoni Leach on 09-04-2024 Urea nitrogen/Creatinine [Mass ratio] 22.1 mg/mg High 10-20 [facility] Basophil percentageOrdered B y: Antoni Leach on 09-04-2024 Basophils/100 WBC (Bld) 0.8 % Normal 0-1 [facility] Comment on above: Performed By: #### L 100.9950, L503.6550, L500.4050, L100.0100, L501.2300, L3100.2300, L501.5200, L503.6030 #### [facility] [address] [place], [address] Bilirubin, totalOrdered By: Antoni Leach on 09-04-2024 Bilirubin [Mass/Vol] 0.40 mg/dL 0.00-1.30 [facility] CBC W/Diff, Automatedon - Absolute Lymph 1.85 X10 3/uL Normal 0.83-4.51 [facility] Comment on above: Performed By: #### L 100.9950, L503.6550, L500.4050, L100.0100, L501.2300, L3100.2300, L501.5200, L503.6030 #### [facility] [address] [place], [address] Absolute Neut 4.8 X10 3/uL Normal 2.0-7.7 [facility] Comment on above: Performed By: #### L 100.9950, L503.6550, L500.4050, L100.0100, L501.2300, L3100.2300, L501.5200, L503.6030 #### [facility] [address] [place], [address] IG% 0.300 Normal 0.0-0.9 [facility] Comment on above: Result Comment: IG% - Immature Granulocytes (promyelocytes, myelocytes and metamyelocytes) > 1% indicates that a LEFT SHIFT is Present. Performed By: #### L 100.9950, L503.6550, L500.4050, L100.0100, L501.2300, L3100.2300, L501.5200, L503.6030 #### [facility] [address] [place], [address] Nucleated RBC (Bld) [#/Vol] 0 10*3/uL Normal 0-5 [facility] Comment on above: Performed By: #### L 100.9950, L503.6550, L500.4050, L100.0100, L501.2300, L3100.2300, L501.5200, L503.6030 #### [facility] [address] [place], [place], [id number] RDW SD 46.5 fl High 35.1-43.9 [facility] Comment on above: Performed By: #### L 100.9950, L503.6550, L500.4050, L100.0100, L501.2300, L3100.2300, L501.5200, L503.6030 #### [facility] [address] [place], [address] Calculated total iron bindin g capacityOrdered By: Antoni Leach on 09-04-2024 Total Iron Binding Capacity 249 ug/dL Low 250-450 [facility] Carbon dioxide, total [Moles /volume] in Central venous bloodOrdered By: Antoni Leach on 09-04-2024 CO2 [Moles/Vol] 20.2 mmol/L Low 21.0-32.0 [facility] Chloride assayOrdered By: Lisa Leach on 09-04-2024 Chloride [Moles/Vol] 104 mmol/L 98-108 [facility] Comprehensive Metabolic Prof ilon 09-04-2024 Albumin [Mass/Vol] 3.9 g/dL Normal 3.4-4.8 [facility] Comment on above: Performed By: #### L 100.9950, L503.6550, L500.4050, L100.0100, L501.2300, L3100.2300, L501.5200, L503.6030 #### [facility] [address] [place], [place], [id number] Albumin/Globulin [Mass ratio] 1.4 {ratio} Normal 0.9-2.4 [facility] Comment on above: Performed By: #### L 100.9950, L503.6550, L500.4050, L100.0100, L501.2300, L3100.2300, L501.5200, L503.6030 #### [facility] [address] [place], [address] ALK PHOS 111 U/L High 35-104 [facility] Comment on above: Performed By: #### L 100.9950, L503.6550, L500.4050, L100.0100, L501.2300, L3100.2300, L501.5200, L503.6030 #### [facility] [address] [place], [address] ALT [Catalytic activity/Vol] 26 U/L Normal <=34 [facility] Comment on above: Performed By: #### L 100.9950, L503.6550, L500.4050, L100.0100, L501.2300, L3100.2300, L501.5200, L503.6030 #### [facility] [address] [place], [address] AST [Catalytic activity/Vol] 17 U/L Normal <=31 [facility] Comment on above: Performed By: #### L 100.9950, L503.6550, L500.4050, L100.0100, L501.2300, L3100.2300, L501.5200, L503.6030 #### [facility] [address] [place], [address] Bilirubin [Mass/Vol] 0.40 mg/dL Normal 0.00-1.30 [facility] Comment on above: Performed By: #### L 100.9950, L503.6550, L500.4050, L100.0100, L501.2300, L3100.2300, L501.5200, L503.6030 #### [facility] [address] [place], [place], [phone] ([phone]) BUN/CRE 22.1 RATIO High 10-20 [facility] Comment on above: Performed By: #### L 100.9950, L503.6550, L500.4050, L100.0100, L501.2300, L3100.2300, L501.5200, L503.6030 #### [facility] [address] [place], [address] Calcium [Mass/Vol] 9.0 mg/dL Normal 7.6-11.0 [facility] Comment on above: Performed By: #### L 100.9950, L503.6550, L500.4050, L100.0100, L501.2300, L3100.2300, L501.5200, L503.6030 #### [facility] [address] [place], [address] Chloride [Moles/Vol] 104 mmol/L Normal 98-108 [facility] Comment on above: Performed By: #### L 100.9950, L503.6550, L500.4050, L100.0100, L501.2300, L3100.2300, L501.5200, L503.6030 #### [facility] [address] [place], [address] CO2 [Moles/Vol] 20.2 mmol/L Low 21.0-32.0 [facility] Comment on above: Performed By: #### L 100.9950, L503.6550, L500.4050, L100.0100, L501.2300, L3100.2300, L501.5200, L503.6030 #### [facility] [address] [place], [address] Creatinine [Mass/Vol] 0.83 mg/dL Normal 0.70-1.20 [facility] Comment on above: Performed By: #### L 100.9950, L503.6550, L500.4050, L100.0100, L501.2300, L3100.2300, L501.5200, L503.6030 #### [facility] [address] [place], [address] ECRCL 79.88 ml/min Normal 50-250 [facility] Comment on above: Performed By: #### L 100.9950, L503.6550, L500.4050, L100.0100, L501.2300, L3100.2300, L501.5200, L503.6030 #### [facility] [address] [place], [address] GAP 15 Normal 5-15 [facility] Comment on above: Performed By: #### L 100.9950, L503.6550, L500.4050, L100.0100, L501.2300, L3100.2300, L501.5200, L503.6030 #### [facility] [address] [place], [address] GFR/1.73 sq M.predicted among non-blacks MDRD (S/P/Bld) [Vol rate/Area] 79 mL/min/{1.73_m2} Normal >60 [facility] Comment on above: Result Comment: mL/m in/1.73m2 CKD-EPI Creatinine Equation (2020) Performed By: #### L 100.9950, L503.6550, L500.4050, L100.0100, L501.2300, L3100.2300, L501.5200, L503.6030 #### [facility] [address] [place], [address] Globulin (S) [Mass/Vol] 2.8 g/dL Normal 2.2-4.2 [facility] Comment on above: Performed By: #### L 100.9950, L503.6550, L500.4050, L100.0100, L501.2300, L3100.2300, L501.5200, L503.6030 #### [facility] [address] [place], [address] Glucose [Mass/Vol] 87 mg/dL Normal 70-99 [facility] Comment on above: Performed By: #### L 100.9950, L503.6550, L500.4050, L100.0100, L501.2300, L3100.2300, L501.5200, L503.6030 #### [facility] [address] [place], [address] Potassium [Moles/Vol] 3.8 mmol/L Normal 3.3-5.1 [facility] Comment on above: Performed By: #### L 100.9950, L503.6550, L500.4050, L100.0100, L501.2300, L3100.2300, L501.5200, L503.6030 #### [facility] [address] [place], [address] Sodium [Moles/Vol] 139 mmol/L Normal 133-145 [facility] Comment on above: Performed By: #### L 100.9950, L503.6550, L500.4050, L100.0100, L501.2300, L3100.2300, L501.5200, L503.6030 #### [facility] [address] [place], [address] T PROT 6.7 g/dL Normal 5.9-8.4 [facility] Comment on above: Performed By: #### L 100.9950, L503.6550, L500.4050, L100.0100, L501.2300, L3100.2300, L501.5200, L503.6030 #### [facility] [address] [place], [address] Urea nitrogen [Mass/Vol] 18 mg/dL Normal 4-19 [facility] Comment on above: Performed By: #### L 100.9950, L503.6550, L500.4050, L100.0100, L501.2300, L3100.2300, L501.5200, L503.6030 #### [facility] [address] [place], [address] Eosinophil percentageOrdered By: Antoni Leach on 09-04-2024 Eosinophils/100 WBC (Bld) 5.7 % High 0-5 [facility] Comment on above: Performed By: #### L 100.9950, L503.6550, L500.4050, L100.0100, L501.2300, L3100.2300, L501.5200, L503.6030 #### [facility] [address] [place], [address] Erythrocyte distribution wid th (RBC) [Ratio][facility]: [facility] on 09-04-2024 Erythrocyte distribution width (RBC) [Entitic vol] 46.5 fL High 35.1-43.9 [facility] Erythrocyte distribution wid th ratioOrdered By: [facility] on 09-04-2024 Erythrocyte distribution width (RBC) [Ratio] 13.8 % Normal 11.6-14.6 [facility] Comment on above: Performed By: #### L 100.9950, L503.6550, L500.4050, L100.0100, L501.2300, L3100.2300, L501.5200, L503.6030 #### [facility] [address] [place], [address] Estimation of creatinine kathy aranceOrdered By: Antoni Leach on 09-04-2024 Estimated Creatinine Clearance Calc 79.88 ml/min 50-250 [facility] Ferritinon 09-04-2024 Ferritin [Mass/Vol] 319 ng/mL Normal 22-378 [facility] Comment on above: Performed By: #### L 100.9950, L503.6550, L500.4050, L100.0100, L501.2300, L3100.2300, L501.5200, L503.6030 #### [facility] [address] [place], [address] GFR/1.73 sq M.predicted jody g non-blacks MDRD (S/P/Bld) [Vol rate/Area]Ordered By: Antoni Leach on 09-04-2024 Estimated GFR (MDRD) Non-Af Amer 79 >60 [facility] Comment on above: mL/min/1.73m2 CKD-EP I Creatinine Equation (2020) Hemoglobin (Reticulocytes) [ Entitic mass]Ordered By: Antoni Leach on 09-04-2024 Reticulocyte Hemoglobin Equivalent 33.0 pg 30-35 [facility] Hemoglobin measurementOrdere d By: Antoni Leach on 09-04-2024 Hemoglobin (Bld) [Mass/Vol] 11.9 g/dL Low 12.0-15.0 [facility] Comment on above: Performed By: #### L 100.9950, L503.6550, L500.4050, L100.0100, L501.2300, L3100.2300, L501.5200, L503.6030 #### [facility] [place], [address] Immature granulocytes/100 WB C Auto (Bld)Ordered By: Antoni Leach on 09-04-2024 Immature granulocytes/100 WBC (Bld) 0.300 % 0.0-0.9 [facility] Comment on above: IG% - Immature Granu locytes (promyelocytes, myelocytes and metamyelocytes) > 1% indicates that a LEFT SHIFT is Present. Immature reticulocyte fracti onOrdered By: Antoni Leach on 09-04-2024 Immature Reticulocyte Fraction 15.80 % 3.00-15.90 [facility] Iron (Unsp spec) [Mass/Mass] Ordered By: Antoni Leach on 09-04-2024 Iron [Mass/Vol] 54 ug/dL 50-170 [facility] Iron measurement (mass/mass) Ordered By: Antoni Leach on 09-04-2024 Iron (Unsp spec) [Mass/Mass] 54 ug/dL 50-170 [facility] Iron saturation [Mass fracti on]Ordered By: Antoni Leach on 09-04-2024 Iron Saturation 22.0 % 13-59 [facility] Iron+Iron Binding Capacityon 09-04-2024 Iron [Mass/Vol] 54 ug/dL Normal 50-170 [facility] Comment on above: Performed By: #### L 100.9950, L503.6550, L500.4050, L100.0100, L501.2300, L3100.2300, L501.5200, L503.6030 #### [facility] [address] [place], [place], [phone] (462) IRON SATURATION 22.0 Normal 13-59 [facility] Comment on above: Performed By: #### L 100.9950, L503.6550, L500.4050, L100.0100, L501.2300, L3100.2300, L501.5200, L503.6030 #### [facility] [address] [place], [place], [phone] ([phone] TIBC 249 ug/dL Low 250-450 [facility] Comment on above: Performed By: #### L 100.9950, L503.6550, L500.4050, L100.0100, L501.2300, L3100.2300, L501.5200, L503.6030 #### [facility] [address] [place], [address] UIBC 195 ug/dL Low 228-428 [facility] Comment on above: Performed By: #### L 100.9950, L503.6550, L500.4050, L100.0100, L501.2300, L3100.2300, L501.5200, L503.6030 #### [facility] [address] [place], [place], [id number] Laboratory - Chemistry and C hemistry - challengeOrdered By: Antoni Leach on 09-04-2024 AST [Catalytic activity/Vol] 17 U/L <32 [facility] Lymphocytes Auto (Unsp spec) [#/Vol]Ordered By: Antoni Leach on 09-04-2024 Lymphocytes (Bld) [#/Vol] 1.85 10*3/uL 0.83-4.51 [facility] MCV (mean corpuscular volume ) determinationOrdered By: Antoni Leach on 09-04-2024 MCV (RBC) [Entitic vol] 91.7 fL Normal 81-99 [facility] Comment on above: Performed By: #### L 100.9950, L503.6550, L500.4050, L100.0100, L501.2300, L3100.2300, L501.5200, L503.6030 #### [facility] [address] [place], [address] Magnesiumon 09-04-2024 Magnesium [Mass/Vol] 2.1 mg/dL Normal 1.5-2.2 [facility] Comment on above: Performed By: #### L 100.9950, L503.6550, L500.4050, L100.0100, L501.2300, L3100.2300, L501.5200, L503.6030 #### [facility] [address], [place], [phone] (617) Magnesium (Unsp spec) [Mass/ Vol]Ordered By: Antoni Leach on 09-04-2024 Magnesium [Mass/Vol] 2.1 mg/dL 1.5-2.2 [facility] Mean corpuscular hemoglobin (MCH) determinationOrdered By: Antoni Leach on 09-04-2024 MCH (RBC) [Entitic mass] 31.0 pg Normal 27.0-32.0 [facility] Comment on above: Performed By: #### L 100.9950, L503.6550, L500.4050, L100.0100, L501.2300, L3100.2300, L501.5200, L503.6030 #### [facility] [address] [place], [place], [phone] (386) Mean corpuscular hemoglobin concentration (MCHC) determinationOrdered By: Antoni Leach on 09-04-2024 MCHC (RBC) [Mass/Vol] 33.8 g/dL Normal 32-36 [facility] Comment on above: Performed By: #### L 100.9950, L503.6550, L500.4050, L100.0100, L501.2300, L3100.2300, L501.5200, L503.6030 #### [facility] [address] [place], [address] Mean platelet volume determi nationOrdered By: Antoni Leach on 09-04-2024 Platelet mean volume (Bld) [Entitic vol] 10.9 fL Normal 6.2-12.0 [facility] Comment on above: Performed By: #### L 100.9950, L503.6550, L500.4050, L100.0100, L501.2300, L3100.2300, L501.5200, L503.6030 #### [facility] [address] [place], [address] Monocyte percentageOrdered B y: Antoni Leach on 09-04-2024 Monocytes/100 WBC (Bld) 7.2 % Normal 0-10 [facility] Comment on above: Performed By: #### L 100.9950, L503.6550, L500.4050, L100.0100, L501.2300, L3100.2300, L501.5200, L503.6030 #### [facility] [address] [place], [address] Neutrophil percentageOrdered By: Antoni Leach on 09-04-2024 Neutrophils/100 WBC (Bld) 61.9 % Normal 47-70 [facility] Comment on above: Performed By: #### L 100.9950, L503.6550, L500.4050, L100.0100, L501.2300, L3100.2300, L501.5200, L503.6030 #### [facility] [address] [place], [address] No Panel InformationOrdered By: Antoni Leach on 09-04-2024 Unsaturated Iron Binding Capacity 195 ug/dL Low 228-428 [facility] Nucleated red blood cell per centageOrdered By: Antoni Leach on 09-04-2024 Nucleated RBC/100 WBC (Bld) [Ratio] 0 % 0-5 [facility] Oncology Visit Reporton 08-10 Oncology Visit Report [facility] [address] [place] [address] OFFICE VISIT Date of Service: 09/04/24 1335 MR#: [id number] Acct: [id number] Name: TRUDY CALLE Rep #: [id number] : 1960 From: Antoni Leach MD Age/Sex: 63/F [place] [facility] [place] Status: Signed HPI Subjective Date of Service 09/04/24 Chief Complaint Colon cancer History of Present Illness 63 YOF presented with hematochezia, had colonoscopy on 06/26/2024. It showed malignant partially obstructing tumor in the rectosigmoid, 8-10 centimeters from the anal verge. June 26, 2024 Sigmoid mass, biopsy: Invasive moderately differentiated adenocarcinoma Negative (no loss of mismatch protein; no microsatellite instability detected). July 04, 2024: Pelvic MRI: FINDINGS: * Circumferential 2.16 cm fungating mass invading all 3 layers of the wall of the distal sigmoid colon and rectosigmoid junction located 11 cm above the anal opening, see image #13/26 series 6. There is also extension of tumor through the outer covering of the distal sigmoid colon seen on image 12/26 series 6. This is also well visualized on the postcontrast image 22/44 series 14. 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 * No pelvic lymphadenopathy is present. * No marrow edema or lytic or blastic lesions or enhancing lesions are seen in the bony structures. * Bicornuate uterus noted. Unremarkable adnexa. Normal bilateral ovaries. Normal urinary bladder. Normal visualized small intestine. Normal remaining visualized colon. There is no pelvic fluid. There is no pelvic mass lesion or lymphadenopathy. Normal osseous structures. Normal abdominal wall. IMPRESSION: 1. Circumferential 2.16 cm fungating mass invading all 3 layers of the wall of the distal sigmoid colon and rectosigmoid junction located 11 cm above the anal opening, see image #13/26 series 6. There is also extension of tumor through the outer covering of the distal sigmoid colon seen on image 12/26 series 6. This is also well visualized on the postcontrast image 22/44 series 14. 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 There is also moderate diffuse thickening and edema and hyperenhancement of the inner mucosa and muscular portion of the wall of the entire rectum down to the anus most likely due to desmoplastic reaction from the above tumor. * High position: 10 to 15 cm above the anal sphincter * T3: tumor invades through the muscularis propria into the subserosa or into non-peritonealised perirectal tissues without reaching the mesorectal fascia or adjacent organs * Consultation with surgery/oncology recommended * Correlation with PET/CT imaging also recommended. * A CT of abdomen and pelvis with contrast can be obtained to evaluate the remaining structures for possible distal metastasis or involvement. PRIMARY TUMOR STAGING (T) Strictly speaking TNM staging, such as the [place] [employer] Committee on Cancer (AJCC) 8th edition, does not subclassify T3. However, this subclassification does have the treatment and prognostic significance 7,8; tumors with a stage T3b or less confer a 5-year cancer-specific survival rate of 85%, whereas tumors with a stage T3c or greater have a 54% survival rate. * Tx: primary tumor cannot be assessed * T0: no evidence of primary tumor * Tis: carcinoma in situ: intraepithelial or invasion of lamina propria * T1: tumor invades submucosa * T2: tumor invades muscularis propria * MRI does not yet have the resolution capable of enabling differentiation of T1 and T2 lesions * T3: tumor invades through the muscularis propria into the subserosa or into non-peritonealised perirectal tissues without reaching the mesorectal fascia or adjacent organs * T4: tumor invades directly into other organs or structures and/or perforates visceral peritoneum Tumor location: * High position: 10 to 15 cm above the anal sphincter * Mid position: 5 to 10 cm above the anal sphincter * Low position: 0 to 5 cm above the anal sphincter Layers of the rectum/rectosigmoid colon: * Submucosa * Muscularis propria * Mucosal rectum * Mesorectal fascia Peritoneal space Adjacent and distal organs July 17, 2024 CT chest abdomen and pelvis: IMPRESSION: 1. Constipation. Apparent thickening (more content not included)... Normal [facility] Phosphoruson 09-04-2024 Phosphate [Mass/Vol] 3.0 mg/dL Normal 2.7-4.5 [facility] Comment on above: Performed By: #### L 100.9950, L503.6550, L500.4050, L100.0100, L501.2300, L3100.2300, L501.5200, L503.6030 #### [facility] [address] [place], [place], [address] Platelet countOrdered By: Lisa Leach on 09-04-2024 Platelets (Bld) [#/Vol] 323 10*3/uL Normal 150-450 [facility] Comment on above: Performed By: #### L 100.9950, L503.6550, L500.4050, L100.0100, L501.2300, L3100.2300, L501.5200, L503.6030 #### [facility] [address] [place], [place], [id number] Potassium (Unsp spec) [Mass/ Vol]Ordered By: Antoni Leach on 09-04-2024 Potassium [Moles/Vol] 3.8 mmol/L 3.3-5.1 [facility] Retic Panelon 09-04-2024 IM RET FRACTION 15.80 Normal 3.00-15.90 [facility] [facility] Comment on above: Performed By: #### L 100.9950, L503.6550, L500.4050, L100.0100, L501.2300, L3100.2300, L501.5200, L503.6030 #### [facility] [address] [place], [place], [id number] RET-HE 33.0 pg Normal 30-35 [facility] Comment on above: Performed By: #### L 100.9950, L503.6550, L500.4050, L100.0100, L501.2300, L3100.2300, L501.5200, L503.6030 #### [facility] [address] [place], [address] Retic Count 2.07 High 0.5-1.5 [facility] Comment on above: Performed By: #### L 100.9950, L503.6550, L500.4050, L100.0100, L501.2300, L3100.2300, L501.5200, L503.6030 #### [facility] [address] [place], [place], [phone] Reticulocyte hemoglobin equi valent (RET-He) measurementOrdered By: Antoni Leach on 09-04-2024 Hemoglobin (Reticulocytes) [Entitic mass] 33.0 pg 30-35 [facility] Reticulocytes Auto (Bld) [#/ Vol]Ordered By: Antoni Leach on 09-04-2024 Reticulocyte Count 2.07 % High 0.5-1.5 [facility] Reticulocytes/100 RBC (Bld) 2.07 % High 0.5-1.5 [facility] Serum creatinine measurement (mass/volume)Ordered By: Antoni Leach on 09-04-2024 Creatinine [Mass/Vol] 0.83 mg/dL 0.70-1.20 [facility] Serum globulin measurementOr dered By: Antoni Leach on 09-04-2024 Globulin (S) [Mass/Vol] 2.8 g/dL 2.2-4.2 [facility] Serum glucose measurement (m ass/volume)Ordered By: Antoni Leach on 09-04-2024 Glucose [Mass/Vol] 87 mg/dL 70-99 [facility] Serum or plasma alanine zhu otransferase (ALT) measurementOrdered By: Antoni Leach on 09-04-2024 ALT [Catalytic activity/Vol] 26 U/L <35 [facility] Serum or plasma albumin sourav urement (mass/volume)Ordered By: Antoni Leach on 09-04-2024 Albumin [Mass/Vol] 3.9 g/dL 3.4-4.8 [facility] Serum or plasma albumin/glob ulin mass ratioOrdered By: Antoni Leach on 09-04-2024 Albumin/Globulin [Mass ratio] 1.4 {ratio} 0.9-2.4 [facility] Serum or plasma alkaline omid sphatase measurementOrdered By: Antoni Leach on 09-04-2024 ALP [Catalytic activity/Vol] 111 U/L High 35-104 [facility] Serum or plasma calcium sourav urement (mass/volume)Ordered By: Antoni Leach on 09-04-2024 Calcium [Mass/Vol] 9.0 mg/dL 7.6-11.0 [facility] Serum or plasma ferritin darin surement (mass/volume)Ordered By: Antoni Leach on 09-04-2024 Ferritin [Mass/Vol] 319 ng/mL 22-378 [facility] Serum or plasma iron saturat ion measurement (mass fraction)Ordered By: Antoni Leach on 09-04-2024 Iron saturation [Mass fraction] 22.0 % 13-59 [facility] Serum or plasma urea nitroge n measurement (mass/volume)Ordered By: Antoni Leach on 09-04-2024 Urea nitrogen [Mass/Vol] 18 mg/dL 4-19 [facility] Serum phosphorus measurement Ordered By: Antoni Leach on 09-04-2024 Phosphorus Level 3.0 mg/dL 2.7-4.5 [facility] Sodium levelOrdered By: Sarah Leach on 09-04-2024 Sodium [Moles/Vol] 139 mmol/L 133-145 [facility] Total proteinOrdered By: Colby Leach on 09-04-2024 Protein [Mass/Vol] 6.7 g/dL 5.9-8.4 [facility] White blood cell (WBC) count Ordered By: Antoni Leach on 09-04-2024 WBC (Bld) [#/Vol] 7.7 10*3/uL Normal 4.4-11.0 [facility] Comment on above: Performed By: #### L 100.9950, L503.6550, L500.4050, L100.0100, L501.2300, L3100.2300, L501.5200, L503.6030 #### [facility] [address] [place], [address] CNOVon 08-29-2024 CNOV Office Visit ([facility] 3) -- TRUDY CALLE ([id number]) 1960 F Date Time Provider Department 08/29/24 11:00 AM VIBHA FLORES3 During your visit today, we recorded the following information about you: Pulse Blood pressure Weight 90/minute 138/84 93 kg Vibha Flroes MD 08/29/2024 1:02 PM Signed Vibha Flores M.D. 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 Patient reports feeling generally well, with no significant abdominal pain except for a pinching sensation at RLQ incision. She has not required any pain medication other than Tylenol. She reports a good appetite and is eating well. Bowel movements are reportedly improving, becoming more formed, and occurring once or twice daily. She is staying hydrated and drinking plenty of fluids. Patient is under the care of medical oncologist Dr. Leach and has a follow-up appointment scheduled in approximately two weeks to discuss adjuvant chemotherapy. Past Diagnostic Results: - Colonoscopy (June 26, 2024): Performed to evaluate constipation and rectal bleeding; revealed an ulcerated, partially obstructing large mass within the rectosigmoid colon; scope was not advanced past the sigmoid colon due to poor bowel preparation. - Surgical Pathology: Moderately differentiated adenocarcinoma; 3 out of 12 lymph nodes positive for cancer; all margins negative; focal endometrial-type stroma in gland suggestive of endometriosis; lymphovascular invasion present, no perineural invasion, low tumor budding; pMMR. Final pathology staged as pT3N1b. Review of Systems: For pertinent positives and negatives, please see HPI PAST MEDICAL HISTORY Diagnosis Date Hyperlipidemia Hypertension Hypothyroidism PAD (peripheral artery disease) (HCC) Rectal cancer (HCC) PAST SURGICAL HISTORY Procedure Laterality Date COLONOSCOPY SCREENING 06/26/2024 PAST SURGICAL HISTORY OF teeth removed in early 70's TONSILLECTOMY AND ADENOIDECTOMY as a child Social History Tobacco Use Smoking status: Every Day Current packs/day: 1.00 Average packs/day: 1 pack/day for 50.2 years (50.2 ttl pk-yrs) Types: Cigarettes Start date: 1974 Smokeless tobacco: Never Tobacco comments: Currently smoking 3/4 PPD Vaping Use Vaping status: Former Quit date: 06/11/2023 Substance Use Topics Alcohol use: Yes Comment: very rarely Drug use: Never FAMILY HISTORY Problem Relation Age of Onset Breast Cancer Mother Heart disease Father CABG-in his 60's The ROS, medical, surgical, family, and social history were reviewed by Vibha Flores MD ALLERGIES No Known Allergies Current Outpatient Medications Medication Sig levothyroxine 150 mcg cap Take 150 mcg by mouth daily before breakfast. clopidogrel (PLAVIX) 75 mg tablet Take 75 mg by mouth once daily. losartan (COZAAR) 100 mg tablet Take 100 mg by mouth once daily. hydroCHLOROthiazide 25 mg tablet Take 25 mg by mouth once daily. atorvastatin (LIPITOR) 20 mg tablet Take 1 tablet by mouth every afternoon. carvedilol (COREG) 6.25 mg tablet Take 1 tablet by mouth every afternoon. promethazine (PHENERGAN) 25 mg tablet Take 1 tab by mouth every 4 hours as needed for nausea. (Patient not taking: Reported on 08/29/2024) No current facility-administered medications for this visit. Vitals: BP 138/84 (BP Site: Right Arm, BP Position: Sitting, BP Cuff Size: Regular Adult) Pulse 90 Wt 93 kg (205 lb) BMI 32.11 kg/m? BMI 32.11 kg/(m2) Physical Exam Constitutional: General: She is not in acute distress. Appearance: Normal appearance. She is not ill-appearing. Abdominal: General: There is no distension. Palpations: Abdomen is soft. Tenderness: There is no abdominal tenderness. Comments: Surgical incisions are clean and dry and well-healed. Neurological: Mental Status: She is alert and oriented to person, place, and time. Psychiatric: Mood and Affect: Mood and affect normal. Judgment: Judgment normal. Labs: Hemoglobin (g/dL) Date Value 08/15/2024 10.4 Hematocrit (%) Date Value 08/15/2024 31.5 WBC (k/uL) Date Value 08/15/2024 9.71 Platelet Count (k/uL) Date Value 08/15/2024 190 Creatinine Date Value Ref Range Status 08/15/2024 1.12 (H) 0.58 - 0.96 mg/dL Final No results found for: AST No results found for: ALT Antibody Screen (no units) Date Value 08/07/2024 Negative WBC (k/uL) Date Value 08/15/2024 9.71 RBC (m/uL) Date Value 08/15/2024 3.42 (L) %DIG,%DBS Pathology: 08/13/24 COLON AND RECTUM: Resection 8th Edition - Protocol posted: 4COLON AND RECTUM: RESECTIO (more content not included)... 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 - levothyroxine 150 mcg cap Take 150 mcg by mouth daily before breakfast. - clopidogrel (PLAVIX) 75 mg tablet Take 75 mg by mouth once daily. - losartan (COZAAR) 100 mg tablet Take 100 mg by mouth once daily. - hydroCHLOROthiazide 25 mg tablet Take 25 mg by mouth once daily. - promethazine (PHENERGAN) 25 mg tablet Take 1 tab by mouth every 4 hours as needed for nausea. - atorvastatin (LIPITOR) 20 mg tablet Take 1 tablet by mouth every afternoon. - carvedilol (COREG) 6.25 mg tablet Take 1 tablet by mouth every afternoon. Problem List As Of Date 08/19/2024 Noted Resolved Hyperlipidemia [E78.5] Hypertension [I10] Hypothyroidism [E03.9] Pre-op exam [Z01.818] 08/07/2024 Rectal cancer (HCC) [C20] 08/07/2024 PVD (peripheral vascular disease) (HCC) [I73.9] 08/07/2024 PAD (peripheral artery disease) (HCC) [I73.9] 08/07/2024 Nicotine use [Z72.0] 08/07/2024 Obesity, Class I, BMI 30-34.9 [E66.811] 08/11/2024 Encounter Status:Closed by LUIS F HURTADO on 08/19/24 Normal [facility] Basic metabolic 2000 panelon 08-15-2024 Anion gap [Moles/Vol] 10 mmol/L Normal 8-15 [facility] Comment on above: Order Comment: Speci men Type: BLOOD SPECIMEN Ordering Facility: [facility] Address: [address] [place] [address] Performed By: #### 2 4321-2 #### [facility] CLIA [id number] [address] [place] [address] [place] Calcium [Mass/Vol] 8.6 mg/dL Normal 8.5-10.2 [facility] Comment on above: Order Comment: Speci men Type: BLOOD SPECIMEN Ordering Facility: [facility] Address: [address] [place] [address] Performed By: #### 2 4321-2 #### [facility] CLIA [id number] [address] [place] Chloride [Moles/Vol] 104 mmol/L Normal 98-107 [facility] Comment on above: Order Comment: Speci men Type: BLOOD SPECIMEN Ordering Facility: [facility] Address: [address] [place] [address] Performed By: #### 2 4321-2 #### [facility] CLIA [id number] [address] [place] CO2 [Moles/Vol] 24 mmol/L Normal 22-30 [facility] Comment on above: Order Comment: Speci men Type: BLOOD SPECIMEN Ordering Facility: [facility] Address: [address] [place] [address] Performed By: #### 2 4321-2 #### [facility] CLIA [id number] [address] [place] Creatinine [Mass/Vol] 1.12 mg/dL High 0.58-0.96 [facility] Comment on above: Order Comment: Speci men Type: BLOOD SPECIMEN Ordering Facility: [facility] Address: [address] [place] [address] Performed By: #### 2 4321-2 #### [facility] CLIA [id number] [address] [place] Creatinine and Glomerular filtration rate.predicted panel (S/P/Bld) 55 mL/min/1.73m??? Low >=60 [facility] Comment on above: Order Comment: Speci men Type: BLOOD SPECIMEN Ordering Facility: [facility] Address: [address] [place] [address] Result Comment: Devika mated Glomerular Filtration Rate (eGFR) is calculated using the 2020 CKD-EPI creatinine equation. This equation utilizes serum creatinine, sex, and age as parameters. The creatinine assay has traceable calibration to isotope dilution-mass spectrometry. Refer to KDIGO guidelines for clinical interpretation. In patients with unstable renal function, e.g. those with acute kidney injury, the eGFR may not accurately reflect actual GFR. Performed By: #### 2 4321-2 #### [facility] CLIA [id number] [address] [place] [address] [place] Glucose [Mass/Vol] 93 mg/dL Normal 74-99 [facility] Comment on above: Order Comment: Speci men Type: BLOOD SPECIMEN Ordering Facility: [facility] Address: [address] [place] [address] Result Comment: The [place] [employer] Association (ADA) provides guidance for cutoff values for fasting glucose and random glucose. The ADA defines fasting as no caloric intake for at least 8 hours. Fasting plasma glucose results between 100 to 125 mg/dL indicate increased risk for diabetes (prediabetes). Fasting plasma glucose results greater than or equal to 126 mg/dL meet the criteria for diagnosis of diabetes. In the absence of unequivocal hyperglycemia, results should be confirmed by repeat testing. In a patient with classic symptoms of hyperglycemia or hyperglycemic crisis, random plasma glucose results greater than or equal to 200 mg/dL meet the criteria for diagnosis of diabetes. Reference: Standards of Medical Care in Diabetes 2016, [place] [employer]. Diabetes Care. 2016.39(Suppl 1). Performed By: #### 2 4321-2 #### [facility] CLIA [id number] [address] [place] Potassium [Moles/Vol] 3.8 mmol/L Normal 3.7-5.1 [facility] Comment on above: Order Comment: Speci men Type: BLOOD SPECIMEN Ordering Facility: [facility] Address: [address] [place] [id number] Performed By: #### 2 4321-2 #### [facility] CLIA [id number] [address] [place] [address] [place] Sodium [Moles/Vol] 138 mmol/L Normal 136-144 [facility] Comment on above: Order Comment: Speci men Type: BLOOD SPECIMEN Ordering Facility: [facility] Address: [address] [place] [address] Performed By: #### 2 4321-2 #### [facility] CLIA [id number] [address] Urea nitrogen [Mass/Vol] 25 mg/dL High 7-21 [facility] Comment on above: Order Comment: Speci men Type: BLOOD SPECIMEN Ordering Facility: [facility] Address: [address] [place] [address] Performed By: #### 2 4321-2 #### [facility] CLIA [id number] [address] CBC panel Auto (Bld)on 08-15 Erythrocyte distribution width (RBC) [Ratio] 13.9 % Normal 11.5-15.0 [facility] Comment on above: Order Comment: Speci men Type: BLOOD SPECIMEN Ordering Facility: [facility] Address: [address] [place] [address] Performed By: #### 5 8410-2 #### [facility] CLIA [id number] [address] Hematocrit (Bld) [Volume fraction] 31.5 % Low 36.0-46.0 [facility] Comment on above: Order Comment: Speci men Type: BLOOD SPECIMEN Ordering Facility: [facility] Address: [address] [place] [address] Performed By: #### 5 8410-2 #### [facility] CLIA [id number] [address] Hemoglobin (Bld) [Mass/Vol] 10.4 g/dL Low 11.5-15.5 [facility] Comment on above: Order Comment: Speci men Type: BLOOD SPECIMEN Ordering Facility: [facility] Address: [address] [place] [address] Performed By: #### 5 8410-2 #### [facility] CLIA [id number] [address] [place] [address] [place] MCH (RBC) [Entitic mass] 30.4 pg Normal 26.0-34.0 [facility] Comment on above: Order Comment: Speci men Type: BLOOD SPECIMEN Ordering Facility: [facility] Address: [address] [place] [address] Performed By: #### 5 8410-2 #### [facility] CLIA [id number] [address] MCHC (RBC) [Mass/Vol] 33.0 g/dL Normal 30.5-36.0 [facility] Comment on above: Order Comment: Speci men Type: BLOOD SPECIMEN Ordering Facility: [facility] Address: [address] [place] [address] Performed By: #### 5 8410-2 #### [facility] CLIA [id number] [address] MCV (RBC) [Entitic vol] 92.1 fL Normal 80.0-100.0 [facility] Comment on above: Order Comment: Speci men Type: BLOOD SPECIMEN Ordering Facility: [facility] Address: [address] [place] [address] Performed By: #### 5 8410-2 #### [facility] CLIA [id number] [address] Nucleated RBC (Bld) [#/Vol] 10*3/uL Normal <0.01 [facility] Comment on above: Order Comment: Speci men Type: BLOOD SPECIMEN Ordering Facility: [facility] Address: [address] [place] [address] Performed By: #### 5 8410-2 #### [facility] CLIA [id number] [address] Platelet mean volume (Bld) [Entitic vol] 11.5 fL Normal 9.0-12.7 [facility] Comment on above: Order Comment: Speci men Type: BLOOD SPECIMEN Ordering Facility: [facility] Address: [address] [place] [address] Performed By: #### 5 8410-2 #### [facility] CLIA [id number] [address] Platelets (Bld) [#/Vol] 190 10*3/uL Normal 150-400 [facility] Comment on above: Order Comment: Speci men Type: BLOOD SPECIMEN Ordering Facility: [facility] Address: [address] [place] [address] Performed By: #### 5 8410-2 #### [facility] CLIA [id number] [address] RBC (Bld) [#/Vol] 3.42 10*6/uL Low 3.90-5.20 [facility] Comment on above: Order Comment: Speci men Type: BLOOD SPECIMEN Ordering Facility: [facility] Address: [address] [place] [address] Performed By: #### 5 8410-2 #### [facility] CLIA [id number] [address] WBC (Bld) [#/Vol] 9.71 10*3/uL Normal 3.70-11.00 [facility] Comment on above: Order Comment: Speci men Type: BLOOD SPECIMEN Ordering Facility: [facility] Address: [address] [place] [address] Performed By: #### 5 8410-2 #### [facility] CLIA [id number] [address] CNDSon 08-15-2024 CNDS HNO ID: [id number] Author: VIBHA FLORES MD Service: General Surgery Author Type: Resident Type: Discharge Summary Filed: 08/15/2024 16:46 Note Text: -- Attestation signed by Vibha Flores MD at 08/15/2024 4:46 PM Attending Note I evaluated the patient and personally participated in the rivera components. I agree with the resident's findings and plan as documented and have discussed the case and management of the patient's care with the resident. Signature: Vibha Flores MD Date: 08/15/2024 Time: 4:46 PM -- DISCHARGE SUMMARY PATIENT NAME: Trudy Calle ADMISSION DATE: 08/13/2024 DISCHARGE DATE: 08/15/2024 ATTENDING PHYSICIAN: Vibha Flores MD Code Status: Not on file Highest Readmission Risk Score: 10 The 30 day readmissions risk score is derived from an internally validated risk model which evaluates patient level characteristics, utilization history, medication orders and lab results up until the day of discharge. Patients with a score of 39 or above are considered highest risk for readmission. Specific patient level drivers will be listed at the bottom of the summary. CONSULTING TEAMS DURING HOSPITALIZATION: Treatment Team: Attending Provider: Vibha Flores MD REASON FOR HOSPITALIZATION: rectosigmoid adenocarcinoma DIAGNOSIS: Principal Problem: Rectal cancer (HCC) (POA: Yes) Active Problems: Obesity, Class I, BMI 30-34.9 (POA: Unknown) Resolved Problems: * No resolved hospital problems. * Exogenous Class 1 Obesity OPERATIONS DURING HOSPITALIZATION: robot-assisted low anterior resection, flexible sigmoidoscopy PROCEDURES DURING HOSPITALIZATION: No procedures performed HOSPITAL COURSE: You presented to the hospital on 08/13 for Elective Robotic Assisted Laparoscopic Low Anterior Resection for Rectal Adenocarcinoma. Surgery went well without any complications. Post-operatively you were transferred to the regular nursing floor where you progressed appropriately. Your pain was well controlled, you were advanced to a regular diet which you tolerated, you were ambulating without issue, and you were having bowel function. On 08/15 you were deemed stable for discharge. Transitions of Care Critical Issues: None LABS AND PROCEDURES PENDING AT DISCHARGE: Test Results Not Yet Available from This Hospitalization: Please Review at Your Follow Up Appointment Order Current Status SURGICAL PATHOLOGY In process PATIENT CONDITION AT DISCHARGE: Stable DISCHARGE DISPOSITION: Home with Self Care INFORMATION PROVIDED TO PATIENT: WOUND/SURGICAL SITE CARE: Wound/Surgical Site Care Some bleeding from the wound/surgical site can be expected. If excessive, see a doctor at once Wash your hands frequently, especially before touching your incision, after using restroom and before eating Your incision has skin glue. It will peel off on its own. It can get wet Orders Placed This Encounter DRESSING CARE (SPECIFY) ([place]), Order Comments: Remove on POD 2 Freq: Ongoing Stitches Will absorb, or fall out by themselves, in a week or so DIET: Low soft-fiber diet: No fresh fruits, whole grains, foods difficult to digest, or vegetables (unless they are well-cooked) ACTIVITY: Lifting is restricted to: no more than 10-15 lbs for three weeks May bathe and shower No walking restrictions No driving while on narcotics May use stairs ALLERGIES No Known Allergies DISCHARGE MEDICATION: Medication List START taking these medications oxyCODONE IR 5 mg immediate release tablet Commonly known as: ROXICODONE Take 1 tablet by mouth every 8 hours as needed for pain for up to 5 days. CONTINUE taking these medications atorvastatin 20 mg tablet Commonly known as: LIPITOR carvedilol 6.25 mg tablet Commonly known as: COREG clopidogrel 75 mg tablet Commonly known as: PLAVIX hydroCHLOROthiazide 25 mg tablet levothyroxine 150 mcg Cap losartan 100 mg tablet Commonly known as: COZAAR promethazine 25 mg tablet Commonly known as: PHENERGAN Take 1 tab by mouth every 4 hours as needed for nausea. STOP taking these medications metroNIDAZOLE 500 mg tablet Commonly known as: FlagyL neomycin 500 mg tablet Where to Get Your Medications These medications were sent to [facility] [address] [place] [id number] Hours: Sunday-Sunday, 8am-7pm, Sunday 9am-1pm oxyCODONE IR 5 mg immediate release tablet FUTURE APPOINTMENTS: Future Appointments Date Time Provider Department Center 08/29/2024 11:00 AM Vibha Flores MD [facility] The patient's risk for 30-day readmission is determined using the following contributing factors: Predictive Model Details 10% (Low) Factor Value Calculated 08/15/2024 05:19 12% Admission Provider (more content not included)... Normal [facility] BRIEF OP NOTon 08-14-2024 BRIEF OP NOT HNO ID: [id number] Author: VIBHA FLORES MD Service: General Surgery Author Type: Resident Type: Brief Op Note Filed: 08/14/2024 13:15 Note Text: -- Attestation signed by Vibha Flores MD at 08/14/2024 1:15 PM Attending Note I evaluated the patient and personally participated in the rivera components. I agree with the resident's findings and plan as documented and have discussed the case and management of the patient's care with the resident. Signature: Vibha Flores MD Date: 08/14/2024 Time: 1:15 PM -- BRIEF OPERATIVE / PROCEDURE NOTE LOG ID: [id number] SURGERY/PROCEDURE DATE: 08/13/2024 INCISION/PROCEDURE START TIME: 3:42 PM INCISION CLOSE/PROCEDURE END TIME: 7:36 PM SURGEON(S)/PROCEDURALIST(S ) AND TERADATA DEVELOPER(S): Surgeons and Role: * Vibha Flores MD - Primary * Cirilo Adkins MD - Assisting * Noemy Navarrete DO - Resident - Assisting Sanitary Chemist: Erik Salazar SA Sanitary Chemist (Relief): Zunilda Stein SA SURGERY/PROCEDURE(S): Robotic LAR ANESTHESIA: General FINDINGS: Large upper rectal mass Adequate proximal and distal margins EEA ESTIMATED BLOOD LOSS: 20 mls SPECIMENS: Left descending colon and rectum COMPLICATIONS: None CLOSURE TECHNIQUE: Primary PRE-OP/PRE-PROCEDURE DIAGNOSIS: Rectal adenocarcinoma POST-OP/POST-PROCEDURE DIAGNOSIS: Same as Preop SIGNATURE: Noemy Navarrete DO PATIENT NAME: Trudy Calle DATE: August 14, 2024 TIME: 6:03 AM Normal [facility] Basic metabolic 2000 panelon 08-14-2024 Anion gap [Moles/Vol] 11 mmol/L Normal 8-15 [facility] Comment on above: Order Comment: Speci men Type: BLOOD SPECIMEN Ordering Facility: [facility] Address: [address] [place] [address] Performed By: #### 2 4321-2 #### [facility] CLIA [id number] [address] [place] [address] [place] Calcium [Mass/Vol] 8.5 mg/dL Normal 8.5-10.2 [facility] Comment on above: Order Comment: Speci men Type: BLOOD SPECIMEN Ordering Facility: [facility] Address: [address] [place] [address] Performed By: #### 2 4321-2 #### [facility] CLIA [id number] [address] [place] [address] [place] Chloride [Moles/Vol] 102 mmol/L Normal 98-107 [facility] Comment on above: Order Comment: Speci men Type: BLOOD SPECIMEN Ordering Facility: [facility] Address: [address] [place] [address] Performed By: #### 2 4321-2 #### [facility] CLIA [id number] [address] [place] [address] [place] CO2 [Moles/Vol] 23 mmol/L Normal 22-30 [facility] Comment on above: Order Comment: Speci men Type: BLOOD SPECIMEN Ordering Facility: [facility] Address: [address] [place] [address] Performed By: #### 2 4321-2 #### [facility] CLIA [id number] [address] [place] [address] [place] Creatinine [Mass/Vol] 1.04 mg/dL High 0.58-0.96 [facility] Comment on above: Order Comment: Effie aguayo Type: BLOOD SPECIMEN Ordering Facility: [facility] Address: [address] [place] [address] Performed By: #### 2 4321-2 #### [facility] CLIA [id number] [address] [place] Creatinine and Glomerular filtration rate.predicted panel (S/P/Bld) 60 mL/min/1.73m??? Normal >=60 [facility] Comment on above: Order Comment: Effie aguayo Type: BLOOD SPECIMEN Ordering Facility: [facility] Address: [address] [place] [address] Result Comment: Devika mated Glomerular Filtration Rate (eGFR) is calculated using the 2020 CKD-EPI creatinine equation. This equation utilizes serum creatinine, sex, and age as parameters. The creatinine assay has traceable calibration to isotope dilution-mass spectrometry. Refer to KDIGO guidelines for clinical interpretation. In patients with unstable renal function, e.g. those with acute kidney injury, the eGFR may not accurately reflect actual GFR. Performed By: #### 2 4321-2 #### [facility] CLIA [id number] [address] [place] [address] [place] Glucose [Mass/Vol] 131 mg/dL High 74-99 [facility] Comment on above: Order Comment: Effie dede Type: BLOOD SPECIMEN Ordering Facility: [facility] Address: [address] [place] [address] Result Comment: The [place] Diabetes Association (ADA) provides guidance for cutoff values for fasting glucose and random glucose. The ADA defines fasting as no caloric intake for at least 8 hours. Fasting plasma glucose results between 100 to 125 mg/dL indicate increased risk for diabetes (prediabetes). Fasting plasma glucose results greater than or equal to 126 mg/dL meet the criteria for diagnosis of diabetes. In the absence of unequivocal hyperglycemia, results should be confirmed by repeat testing. In a patient with classic symptoms of hyperglycemia or hyperglycemic crisis, random plasma glucose results greater than or equal to 200 mg/dL meet the criteria for diagnosis of diabetes. Reference: Standards of Medical Care in Diabetes 2016, [place] [employer] Association. Diabetes Care. 2016.39(Suppl 1). Performed By: #### 2 4321-2 #### [facility] CLIA [id number] [address] [place] Potassium [Moles/Vol] 3.8 mmol/L Normal 3.7-5.1 [facility] Comment on above: Order Comment: Speci men Type: BLOOD SPECIMEN Ordering Facility: [facility] Address: [address] [place] [address] Performed By: #### 2 4321-2 #### [facility] CLIA [id number] [address] [place] Sodium [Moles/Vol] 136 mmol/L Normal 136-144 [facility] Comment on above: Order Comment: Speci men Type: BLOOD SPECIMEN Ordering Facility: [facility] Address: [address] [place] [address] Performed By: #### 2 4321-2 #### [facility] CLIA [id number] [address] STATES OF [facility] Urea nitrogen [Mass/Vol] 22 mg/dL High 7-21 [facility] Comment on above: Order Comment: Speci men Type: BLOOD SPECIMEN Ordering Facility: [facility] Address: [address] [place] [address] Performed By: #### 2 4321-2 #### [facility] CLIA [id number] [address] STATES OF [facility] CBC panel Auto (Bld)on 08-14 Erythrocyte distribution width (RBC) [Ratio] 13.6 % Normal 11.5-15.0 [facility] Comment on above: Order Comment: Speci men Type: BLOOD SPECIMEN Ordering Facility: [facility] Address: [address] [place] [address] Performed By: #### 5 8410-2 #### [facility] CLIA [id number] [address] OF [facility] Hematocrit (Bld) [Volume fraction] 33.8 % Low 36.0-46.0 [facility] Comment on above: Order Comment: Speci men Type: BLOOD SPECIMEN Ordering Facility: [facility] Address: [address] [place] [address] Performed By: #### 5 8410-2 #### [facility] CLIA [id number] [address] Hemoglobin (Bld) [Mass/Vol] 11.2 g/dL Low 11.5-15.5 [facility] Comment on above: Order Comment: Speci men Type: BLOOD SPECIMEN Ordering Facility: [facility] Address: [address] [place] [address] Performed By: #### 5 8410-2 #### [facility] CLIA [id number] [address] MCH (RBC) [Entitic mass] 30.1 pg Normal 26.0-34.0 [facility] Comment on above: Order Comment: Speci men Type: BLOOD SPECIMEN Ordering Facility: [facility] Address: [address] [place] [address] Performed By: #### 5 8410-2 #### [facility] CLIA [id number] [address] STATES [facility] MCHC (RBC) [Mass/Vol] 33.1 g/dL Normal 30.5-36.0 [facility] Comment on above: Order Comment: Speci men Type: BLOOD SPECIMEN Ordering Facility: [facility] Address: [address] [place] [address] Performed By: #### 5 8410-2 #### [facility] CLIA [id number] [address] STATES [facility] MCV (RBC) [Entitic vol] 90.9 fL Normal 80.0-100.0 [facility] Comment on above: Order Comment: Speci men Type: BLOOD SPECIMEN Ordering Facility: [facility] Address: [address] [place] [address] Performed By: #### 5 8410-2 #### [facility] CLIA [id number] [address] Nucleated RBC (Bld) [#/Vol] 10*3/uL Normal <0.01 [facility] Comment on above: Order Comment: Speci men Type: BLOOD SPECIMEN Ordering Facility: [facility] Address: [address] [place] [address] Performed By: #### 5 8410-2 #### [facility] CLIA [id number] [address] OF [place] Platelet mean volume (Bld) [Entitic vol] 11.5 fL Normal 9.0-12.7 [facility] Comment on above: Order Comment: Speci men Type: BLOOD SPECIMEN Ordering Facility: [facility] Address: [address] [place] [address] Performed By: #### 5 8410-2 #### [facility] CLIA [id number] [address] OF [place] Platelets (Bld) [#/Vol] 211 10*3/uL Normal 150-400 [facility] Comment on above: Order Comment: Speci men Type: BLOOD SPECIMEN Ordering Facility: [facility] Address: [address] [place] [address] Performed By: #### 5 8410-2 #### [facility] CLIA [id number] [address] [place] RBC (Bld) [#/Vol] 3.72 10*6/uL Low 3.90-5.20 [facility] Comment on above: Order Comment: Speci men Type: BLOOD SPECIMEN Ordering Facility: [facility] Address: [address] [place] [address] Performed By: #### 5 8410-2 #### [facility] CLIA [id number] [address] OF [place] WBC (Bld) [#/Vol] 10.38 10*3/uL Normal 3.70-11.00 [facility] Comment on above: Order Comment: Speci men Type: BLOOD SPECIMEN Ordering Facility: [facility] Address: [address] [place] [address] Performed By: #### 5 8410-2 #### [facility] CLIA [id number] [address] [place] [address] [place] ANES POSTPROC EVALon 025 ANES POSTPROC EVAL HNO ID: [id number] Author: ARIEL MONROY DO Service: Anesthesiology Author Type: Anesthesiologist Type: Anesthesia Postprocedure Evaluation Filed: 08/13/2024 21:40 Note Text: POST ANESTHESIA EVALUATION NOTE : 1960 Procedure Summary Date: 08/13/24 Room / Location: [place] OR 04 / [place] Anesthesia Start: 1507 Anesthesia Stop: 1948 Procedures: XI ROBOTIC LAPAROSCOPIC RESECTION COLON LOW ANTERIOR W/ COLORECTAL ANASTOMOSIS/ POSSIBLE STOMA/ ERAS/ W BLOCK (Abdomen) SIGMOIDOSCOPY FLEXIBLE (Colon Sigmoid) Diagnosis: Rectal cancer (HCC) (Rectal cancer (HCC) [C20]) Surgeons: Vibha Flores MD Responsible Provider: Ariel Monroy DO Anesthesia Type: general ASA Status: 3 Anesthesia Type: general Airway Type: ETT Last Vitals Vitals Value Taken Time BP 143/74 08/13/242044 Temp 36.5 ?C (97.7 ?F) 08/13/242014 HR SpO2 58 08/13/242044 Resp 12 08/13/242044 SpO2 99 % 08/13/242044 Vitals shown include unfiled device data. Post Anesthesia Patient Status Patient Evaluation: bedside. Anticipated Disposition: inpatient floor planned admission. Neurological Status: aware and responsive. Pulmonary Status: breathing comfortably on room air Airway Control: returned to baseline unsupported. Cardiovascular Status: stable. Pain Management: clinically adequate Postoperative Hydration: acceptable. Intraoperative Events: no significant anesthesia events Post Operative Nausea/Vomiting Status: no significant post operative nausea or vomiting Recommendation: further care per PACU/ICU/floor team. Anesthesia Observations No Documentation SIGNATURE: Ariel Monroy DO PATIENT NAME: Trudy Calle DATE: August 13, 2024 TIME: 9:40 PM CSN: [id number] Normal [facility] ANES PRE-OPon 08-13-2024 ANES PRE-OP HNO ID: [id number] Author: MERLIN ESQUIVEL MD Service: Anesthesiology Author Type: Physician Type: Anesthesia Preprocedure Evaluation Filed: 08/13/2024 11:52 Note Text: ANESTHESIOLOGY DAY OF SURGERY NOTE : 1960 Procedure Information Date/Time: 08/13/24 1315 Procedure: XI ROBOTIC LAPAROSCOPIC RESECTION COLON LOW ANTERIOR W/ COLORECTAL ANASTOMOSIS/ POSSIBLE STOMA/ ERAS/ W BLOCK - ERAS WITH BLOCK Location: [place] OR 04 / [place] Surgeons: Vibha lFores MD Estimated body mass index is 32.26 kg/m? as calculated from the following: Height as of 08/07/24: 170.2 cm (5' 7). Weight as of 08/07/24: 93.4 kg (206 lb). Most recent hematocrit and potassium results: Hematocrit 39.0 08/07/2024 Potassium 3.8 08/07/2024 Relevant Problems CARDIO (+) Hypertension (+) PAD (peripheral artery disease) (HCC) ENDO (+) Hypothyroidism I - PHYSICAL EVALUATION AIRWAY Patient intubated: No. Tracheostomy tube not present Mallampati: III. TM distance: >3 FB. Neck ROM: full ROM without neurological symptoms. Mouth opening: adequate. Short neck: no. Thick neck: no DENTAL Dentures, upper: complete. Dentures, lower: complete. Additional exam findings: no II - ANESTHESIA PLAN ASA Score: 3 Anesthetic Plan: general Airway type: ETT NPO Status: adequate Beta Jill Monitoring Plan Monitoring plan: standard ASA. Post Procedure Analgesic Plan Postoperative analgesic plan: parenteral or oral opioids and peripheral nerve block. Informed Consent Anesthetic risks, benefits, alternatives, personnel and consent discussed: yes. Patient / Responsible Alliance Party agrees to proceed: yes Patient / Surrogate agrees to blood products: Yes DNR status not reviewed with patient and/or family prior to surgery. Significant changes in the patient condition since the History and Physical, not otherwise documented in primary service progress note: no. Potential Anesthesia issues that may suggest increased risk of complications or contraindication to planned procedure: potential difficult IV access. No vitals data found for the desired time range. Facility-Administered Medications as of 08/13/2024 Medication Dose Route Frequency lidocaine (PF) 10 mg/mL (1 %) 1-2 mg injection (XYLOCAINE) 0.1-0.2 mL INTRADERMAL PRN lactated ringers iv infusion 5-30 mL/hr INTRAVENOUS CONTINUOUS NaCl 0.9% iv flush bag 20 mL INTRAVENOUS PRN heparin 5,000 Units injection 5,000 Units SUBCUTANEOUS Pre-Op Once cefTRIAXone iv piggyback 2 g in dextrose (iso-osmotic) 50 mL (ROCEPHIN) 2 g INTRAVENOUS Pre-Op Once metroNIDAZOLE iv piggyback 500 mg in NaCl (iso-osmotic) 100 mL (FLAGYL) 500 mg INTRAVENOUS Pre-Op Once alvimopan 12 mg cap(s) (ENTEREG) 12 mg ORAL Pre-Op Once celecoxib 200 mg cap(s) (CeleBREX) 200 mg ORAL Pre-Op Once gabapentin 300 mg cap(s) (NEURONTIN) 300 mg ORAL Pre-Op Once acetaminophen 975 mg tab(s) (TYLENOL) 975 mg ORAL Pre-Op Once Outpatient Medications as of 08/13/2024 Medication Sig atorvastatin (LIPITOR) 20 mg tablet Take 1 tablet by mouth every afternoon. carvedilol (COREG) 6.25 mg tablet Take 1 tablet by mouth every afternoon. I have interviewed and examined the patient. I have reviewed the medical record and/or the pre-anesthesia evaluation, pertinent labs, and test results. This contains updated information obtained within 48 hours of Surgery/Procedure. SIGNATURE: Merlin Esquivel MD PATIENT NAME: Trudy Calle DATE: August 13, 2024 TIME: 11:52 AM CSN: [id number] Normal [facility] MISMATCH REPAIR PROTEINS BY IHCon 08-13-2024 AP BIOMARKER DISCLAIMER Normal [facility] Comment on above: Order Comment: Speci men Type: TISSUE SPECIMEN Ordering Facility: [facility] Address: [address] [place] [address] Result Comment: Tal shankar Developed Test (LDT) Disclaimer: Performance characteristics of immunohistochemical, immunofluorescent and chromogenic in-situ hybridization tests have been determined by the performing laboratory within [facility]???s [facility] Pathology and Laboratory Medicine Department ([facility], [facility], [facility], [facility], [facility], [facility], or [facility]) in a manner consistent with CLIA requirements. One or more of these tests have not been cleared or approved by the FDA. [facility] is regulated under CLIA as qualified to perform high-complexity testing. These tests are used for clinical purposes. They should not be regarded as investigational or for research. Positive and negative controls stain appropriately. Performed By: #### L [id number] #### [facility] CLIA [id number] [address] [place] [address] [place] AP BLOCK ID A4 Normal [facility] Comment on above: Order Comment: Effie aguayo Type: TISSUE SPECIMEN Ordering Facility: [facility] Address: [address] [place] [address] Performed By: #### L [id number] #### [facility] CLIA [id number] [address] [place] [address] BIOMARKER INTERPRETATION COMMENT AND REFERENCE RANGE Normal [facility] Comment on above: Order Comment: Effie aguayo Type: TISSUE SPECIMEN Ordering Facility: [facility] Address: [address] [place] [address] Result Comment: Inta ct expression of MMR (mismatch repair) proteins by immunohistochemistry is highly correlated with a microsatellite stable result by MSI (microsatellite instability) PCR analysis, and the results from these tests are viewed as clinically equivalent by the FDA. This result excludes at least 90-95% of Romo syndrome. These tests are an imperfect screen because some mutations may not produce loss of immunohistochemical expression. MSI molecular testing can be performed upon request in cases with a high clinical suspicion and appropriate family history. In a phase 2 study of patients with metastatic carcinoma, Melinda et al. ([facility] 2015;372:2509-20) reported that clinical benefit of pembrolizumab, an anti-programmed 1 (PD-1) immune checkpoint inhibitor, was predicted by the tumor's mismatch repair status; mismatch repair deficient (dMMR) tumors are more responsive to PD-1 blockade than mismatch repair proficient tumors. Pembrolizumab is FDA-approved for treating adult and pediatric patients with unresectable or metastatic solid tumors that display microsatellite instability-high (MSI-H) by PCR assay or dMMR by immunohistochemistry (IHC). The FDA does not distinguish between PCR and IHC-based assays, as these are considered equivalent and complimentary tests. As clinically indicated, and in the appropriate setting of genetic counseling with informed patient consent, further genetic testing may be helpful. For more information or questions about this result, please call the [facility] for [employer] at [phone]. Performed By: #### L [id number] #### [facility] CLIA [id number] [address] [place] [address] BIOMARKER METHOD Immunohistochemistry was performed on formalin fixed paraffin-embedded tissue using the following clones: MLH1 (clone M1 mouse monoclonal); MSH2 ([id number] mouse monoclonal); and MSH6 (SP93 rabbit monoclonal); followed by ultrasensitive bright field detection (Optiview with amplification) from [[employer], [place]]. PMS2 (EP51 Rabbit monoclonal, [employer]guard Interactive); followed by ultrasensitive bright field detection ( Dumont Refine Polymer DAB Detection) from [[employer], [place], [place]]. [facility] Comment on above: Order Comment: Speci men Type: TISSUE SPECIMEN Ordering Facility: [facility] Address: [address] [place] [address] Performed By: #### L [id number] #### [facility] CLIA [id number] [address] [place] [address] CASE NUMBER MMR [id number] [facility] Comment on above: Order Comment: Speci men Type: TISSUE SPECIMEN Ordering Facility: [facility] Address: [address] [place] [address] Performed By: #### L [id number] #### [facility] CLIA [id number] [address] [place] [address] OF [facility] FINAL PERFORMING LAB [facility] Comment on above: Order Comment: Speci men Type: TISSUE SPECIMEN Ordering Facility: [facility] Address: [address] [place] [address] Result Comment: Diag nostic interpretation performed at: [facility], [address] [place] [address] CLIA# [id number] Absorption Operator: Jordi Mcclelland MD Electronically signed out by: Asa Jean Baptiste MD Performed By: #### L [id number] #### [facility] CLIA [id number] [address] [place] [address] [place] Order Comment: Speci men Type: TISSUE SPECIMENOrdering Facility: [facility] Address: [address] [place] [address] Result Comment: Diag nostic interpretation performed at: [facility], [address] [address] CLIA# [id number] Absorption Operator: Siddhartha Hsu MD Performed By: #### 6 6121-5 ####[facility] [id number] [place] [address] [place] FIXATIVE Formalin, 10% Neutra l Buffered Normal [facility] Comment on above: Order Comment: Speci men Type: TISSUE SPECIMEN Ordering Facility: [facility] Address: [address] [place] [address] Performed By: #### L [id number] #### [facility] CLIA [id number] [address] [place] [address] [place] MLH1 IMMUNOHISTOCHEMICAL RESULTS Normal/Intact Nuclear Expression Normal [facility] Comment on above: Order Comment: Speci men Type: TISSUE SPECIMEN Ordering Facility: [facility] Address: [address] [place] [address] Performed By: #### L [id number] #### [facility] CLIA [id number] [address] [place] [address] [place] MLH1 PROMOTER METHYLATION ASSAY No Normal [facility] Comment on above: Order Comment: Speci men Type: TISSUE SPECIMEN Ordering Facility: [facility] Address: [address] [place] [address] Performed By: #### L [id number] #### [facility] CLIA [id number] [address] [place] [address] [place] MMR INTERPRETATION Proficient (Trang Barajas) Normal [facility] Comment on above: Order Comment: Speci men Type: TISSUE SPECIMEN Ordering Facility: [facility] Address: [address] [place] [address] Performed By: #### L [id number] #### [facility] CLIA [id number] [address] [place] [address] [place] MSH2 IMMUNOHISTOCHEMICAL RESULTS Normal/Intact Nuclear Expression Normal [facility] Comment on above: Order Comment: Speci men Type: TISSUE SPECIMEN Ordering Facility: [facility] Address: [address] [place] [address] Performed By: #### L [id number] #### [facility] CLIA [id number] [address] [place], [place] [address] [place] MSH6 IMMUNOHISTOCHEMICAL RESULTS Normal/Intact Nuclear Expression Normal [facility] Comment on above: Order Comment: Speci men Type: TISSUE SPECIMEN Ordering Facility: [facility] Address: [address] [place] [address] Performed By: #### L [id number] #### [facility] CLIA [id number] [address] [place] [address] [place] PMS2 IMMUNOHISTOCHEMICAL RESULTS Normal/Intact Nuclear Expression Normal [facility] Comment on above: Order Comment: Speci men Type: TISSUE SPECIMEN Ordering Facility: [facility] Address: [address] [place] [address] Performed By: #### L [id number] #### [facility] CLIA [id number] [address] [place] [address] [place] TUMOR TYPE MMR Primary Colorectal Adenocarcinoma Normal [facility] Comment on above: Order Comment: Speci men Type: TISSUE SPECIMEN Ordering Facility: [facility] Address: [address] [place] [address] Performed By: #### L [id number] #### [facility] CLIA [id number] [address] [place] [address] [place] OPERATIVE NOon 08-13-2024 OPERATIVE NO HNO ID: [id number] Author: VBIHA FLORES MD Service: General Surgery Author Type: Physician Type: Operative Report Filed: 08/14/2024 11:48 Note Text: OPERATIVE REPORT Log ID: [id number] Surgery Date: 08/13/2024 Incision/Procedure Start Time: 3:42 PM Incision Close/Procedure End Time: 7:36 PM Surgeon(s) and Loan Associate(s): Surgeons and Role: * Vibha Flores MD - Primary * Noemy Navarrete DO - Resident - Assisting Preoperative Diagnosis: Rectal cancer (HCC) [C20] Postoperative Diagnosis: rectosigmoid adenocarcinoma PROCEDURE AND ANESTHESIA TYPE: Robot-assisted low anterior resection, flexible sigmoidoscopy OPERATIVE INDICATIONS: This is 63-year-old female who was found to have a rectosigmoid/upper rectal adenocarcinoma on colonoscopy for constipation and rectal bleeding. Staging imaging revealed no distant disease. She presents today for surgical resection. 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, colorectal anastomosis performed in 28 EEA stapler, flexible sigmoidoscopy demonstrated intact and hemostatic anastomosis at 10 cm from the anal verge Commission on Cancer - Standard 5.6: Colon Resection Synoptic Operative Reporting Operation performed with curative intent: Yes Tumor location: Rectosigmoid junction Extent of colon and vascular resection: Other: sigmoid and partial proctectomy, BHAVIK EBL: 50ml SPECIMENS: rectosigmoid colon CONDITION: Stable DISPOSITION: PACU DESCRIPTION OF PROCEDURE: After informed consent was obtained a preoperative huddle was performed, the patient brought to the operating room and placed in the supine position. General anesthesia was induced. A Esqueda catheter was placed. The patient was then repositioned in modified lithotomy with all pressure points properly padded. The abdomen and perineum were prepped and draped in usual sterile fashion. A timeout was performed. The appropriate preoperative antibiotics were administered. Entry into the abdomen was obtained using a 5 mm Optiview trocar in the left upper quadrant. The abdomen was then insufflated and there is no evidence of metastatic disease. We then placed additional robotic ports across the abdomen that would allow us to perform a lowanterior resection. There was a 12 mm port in the right lower quadrant. Our initially placed 5 mm port was upsized to an 8 mm robotic trocar. We then placed a 5 mm assist port in the right lower quadrant. The patient was then placed in steep Trendelenburg and tilted slightly to the right. Small bowel was swept out of the pelvis and we were able to visualize the patient's tumor sitting just above the anterior peritoneal reflection. The robot was then docked. The rectosigmoid was grasped and the BHAVIK pedicle was identified. The peritoneum just distal to the BHAVIK was incised and in a medial to lateral fashion, the mesentery of the rectosigmoid was mobilized off of the pelvic brim. The left ureter was identified and kept out of harm's way. The BHAVIK was then encircled using the vessel sealer. The pedicle itself was divided using a white load of the sure form 60 stapler. The lateral attachments of the descending colon and sigmoid were taken down using electrocautery. We then carried our medial dissection down to the patient's rectum. The posterior mesorectal plane was entered and we continued our posterior mobilization until we were approximately 5 cm below the patient's tumor. We then turned our attention anteriorly. The patient had a bicornuate uterus which altered her pelvic anatomy. The rectum was densely adhered to the rectovaginal septum. We did take down the anterior peritoneal reflection and mobilized the rectum approximately 3 cm distal. This ensured that we had a adequate distal transection site below the patient's tumor. The rectal mesentery was extremely fatty but we were able to skeletonize the rectum using the vessel sealer. The rectum was then divided using a sure form 60 stapler with a blue load. We then turned our attention to her proximal transection site. We followed the BHAVIK pedicle to the patient's descending colon and divided the mesentery up to this point using the vessel sealer. Indocyanine green was injected and this confirmed that we had adequate perfusion of our proximal colon as well as our rectal stump. EEA sizers were placed into the rectal stump and passed easily up to the staple line. A locking grasper was placed on the distal staple line. The robot was undocked. A 5 cm Pfannenstiel incision was made in the patient's lower abdomen. Skin and subcutaneous tissues were incised. The anterior sheath was incised in a transverse fashion. Flaps were created superiorly and inferiorly over the rectus muscles. The rectus was split in the midline and the peritoneum was e (more content not included)... Normal [facility] Pathology biopsy report Jose David (Tiss)on 08-13-2024 AP DISCLAIMER [facility] Comment on above: Order Comment: Effie aguayo Type: TISSUE SPECIMENOrdering Facility: [facility] Address: [address] [place] [address] Result Comment: Tal Noble Test (LDT) Disclaimer: Performance characteristics of immunohistochemical, immunofluorescent, and chromogenic in-situ hybridization tests have been determined by the performing laboratory within [facility] Pathology and Laboratory Medicine Department ([facility], [facility], [facility], [facility], [facility], [facility], or [facility]) in a manner consistent with CLIA requirements. One or more of these tests may not have been cleared or approved by the FDA. [facility] is regulated under CLIA as qualified to perform high-complexity testing. These tests are used for clinical purposes. These should not be regarded as investigational or for research. Positive and negative controls stain appropriately. Performed By: #### 6 6121-5 ####[facility] [id number] [address] BLOCK FOR ADDITIONAL BIOMARKERS/MOLECULAR STUDIES A4 Normal [facility] Comment on above: Order Comment: Effie aguayo Type: TISSUE SPECIMENOrdering Facility: [facility] Address: [address] [place] [address] Performed By: #### 6 6121-5 ####[facility] [id number] [address] OF [place] CASE REPORT [facility] Comment on above: Order Comment: Effie aguayo Type: TISSUE SPECIMENOrdering Facility: [facility] Address: [address] [place] [address] Result Comment: Surg ica Pathology Report Case: [id number] Authorizing Provider: Vibha Flores MD Collected: 08/13/2024 07:26 PM Ordering Location: [facility] Received: 08/14/2024 08:11 AM Pathologist: Honey Paula MD Specimen: Colon, Sigmoid, Resection, RECTOSIGMOID Performed By: #### 6 6121-5 ####[facility] [id number] [address] CLINICAL HISTORY Normal [facility] Comment on above: Order Comment: Speci men Type: TISSUE SPECIMENOrdering Facility: [facility] Address: [address] [place] [address] Result Comment: Pre- op diagnosis: Rectal cancer (HCC) [C20] Performed By: #### 6 6121-5 ####[facility]ORY[facility] [id number] [address] FINAL DIAGNOSIS Normal [facility] Comment on above: Order Comment: Speci men Type: TISSUE SPECIMENOrdering Facility: [facility] Address: [address] [place] [address] Result Comment: Rect osigmoid, low anterior resection: - Moderately differentiated adenocarcinoma, invading through the muscularis propria into the pericolonic/perirectal tissue. - 3 out of 12 lymph nodes positive for carcinoma (3/12). - All margins negative for carcinoma. - Focal endometrial type stroma and glands, suggestive of endometriosis. - See comment and CAP synoptic report. at 1558 EDT Performed By: #### 6 6121-5 ####[facility]ORY[facility]IA [id number] [address] GROSS DESCRIPTION Normal [facility] Comment on above: Order Comment: Speci men Type: TISSUE SPECIMENOrdering Facility: [facility] Address: [address] [place] [address] Result Comment: Rachel knapp, Sigmoid, Resection Received in formalin labeled rectosigmoid resection is a low anterior colon resection measuring 13 cm in length and ranging in circumference from 5.0 cm (proximal blue inked margin) up to 5.5 cm (distal orange inked stapled margin). The serosal surface demonstrates creeping fat along his length, but is otherwise unremarkable. The mesorectum is intact. The radial margin is inked black. The colon is opened longitudinally to reveal a 5.0 length x 4.3 cm partial circumferential sessile mass with heaped up borders. The mass extends through the muscularis propria into the underlying pericolonic adipose tissue, 2.5 cm from the proximal margin, 6.0 cm from the distal margin, 8.0 cm from the mesenteric margin. The mass is above the peritoneal reflection, almost completely circumferential, with 0.5 cm sparing of the anterior wall. Additionally, the mass appears to invade the soft tissue attached to the serosal surface. Photographs are taken before and after sectioning. Sectioning through the pericolonic adipose tissue reveals 14 red firm nodules, resembling lymph nodes, ranging in size from 0.3 to 1.8 cm in greatest dimension. Brickmason Helper sections are submitted in formalin as follows: A1-mesenteric margin, shaved A2-distal margin, perpendicular A3-proximal margin, perpendicular A4-mass in relationship to adjacent proximal uninvolved colon A5-mass with deepest extension through colon wall A6-mass in relationship to adjacent distal uninvolved colon A7-mass in relationship to serosa with creeping fat A 8-5 possible lymph nodes A9-A12 2 possible bisected lymph nodes (1 lymph node inked blue for identification purposes) A13-1 possible lymph node serially sectioned Gross examination performed at [facility], [address] August 14, 2024 12:18 PM Performed By: #### 6 6121-5 ####[facility]ORATORYCLIA [id number] [place] [address] [place] SYNOPTIC REPORT Normal [facility] Comment on above: Order Comment: Speci men Type: TISSUE SPECIMENOrdering Facility: [facility] Address: [address] [place] [address] Result Comment: COLO N AND RECTUM: Resection COLON AND RECTUM: RESECTION - All Specimens 8th Edition - Protocol posted: 11/28/2023 SPECIMEN Procedure: Low anterior resection Macroscopic Evaluation of Mesorectum: Complete TUMOR Tumor Site: Rectosigmoid Histologic Type: Adenocarcinoma Histologic Grade: G2, moderately differentiated Tumor Size: Greatest dimension (Centimeters): 5 cm Tumor Extent: Invades through muscularis propria into the pericolonic or perirectal tissue Macroscopic Tumor Perforation: Not identified Lymphatic and / or Vascular Invasion: Large vessel (venous), intramural Lymphatic and / or Vascular Invasion: Large vessel (venous), extramural Perineural Invasion: Not identified Tumor Budding Score: Low (0-4) Treatment Effect: No known presurgical therapy MARGINS Margin Status for Invasive Carcinoma: All margins negative for invasive carcinoma Margin Status for Non-Invasive Tumor: Not applicable REGIONAL LYMPH NODES Regional Lymph Node Status: : Tumor present in regional lymph node(s) Number of Lymph Nodes with Tumor: 3 Number of Lymph Nodes Examined: 12 Tumor Deposits: Not identified pTNM CLASSIFICATION (AJCC 8th Edition) Reporting of pT, pN, and (when applicable) pM categories is based on information available to the pathologist at the time the report is issued. As per the AJCC (Chapter 1, 8th Ed.) it is the managing physician's responsibility to establish the final pathologic stage based upon all pertinent information, including but potentially not limited to this pathology report. pT Category: pT3 pN Category: pN1b Performed By: #### 6 6121-5 ####[facility]ORATORYCLIA [id number] [address] OF [facility] NURSING PROGon 08-08-2024 NURSING PROG HNO ID: [id number] Author: OSMEL MAYES APRN.LEAVE MANAGER Service: General Surgery Author Type: Nurse Practitioner Type: Nursing Progress Note Filed: 08/08/2024 10:39 Note Text: -- Summary: anesthesia -- Reviewed patient health history, PCP last office note, concerns from PAT visit with Dr. Gentile in anesthesia. Per Dr. Gentile, OK to proceed with procedure as planned. Normal [facility] Basic metabolic 2000 panelon 08-07-2024 Anion gap [Moles/Vol] 13 mmol/L 8 - 15 mmol/L [facility] Calcium [Mass/Vol] 9.5 mg/dL 8.5 - 10. 2 mg/dL [facility] Chloride [Moles/Vol] 98 mmol/L 98 - 10 7 mmol/L [facility] CO2 [Moles/Vol] 26 mmol/L 22 - 30 mmol/L [facility] Creatinine [Mass/Vol] 1.02 mg/dL High 0.58 - 0.96 mg/dL [facility] GFR/1.73 sq M.predicted among non-blacks MDRD (S/P/Bld) [Vol rate/Area] 61 mL/min/{1.73_m2} - PINF [facility] Comment on above: Estimated Glomerular Filtration Rate (eGFR) is calculated using the 2020 CKD-EPI creatinine equation. This equation utilizes serum creatinine, sex, and age as parameters. The creatinine assay has traceable calibration to isotope dilution-mass spectrometry. Refer to KDIGO guidelines for clinical interpretation. In patients with unstable renal function, e.g. those with acute kidney injury, the eGFR may not accurately reflect actual GFR. Glucose [Mass/Vol] 101 mg/dL High 74 - 99 mg/dL [facility] Comment on above: The [place] Diab[employer] s Association (ADA) provides guidance for cutoff values for fasting glucose and random glucose. The ADA defines fasting as no caloric intake for at least 8 hours. Fasting plasma glucose results between 100 to 125 mg/dL indicate increased risk for diabetes (prediabetes). Fasting plasma glucose results greater than or equal to 126 mg/dL meet the criteria for diagnosis of diabetes. In the absence of unequivocal hyperglycemia, results should be confirmed by repeat testing. In a patient with classic symptoms of hyperglycemia or hyperglycemic crisis, random plasma glucose results greater than or equal to 200 mg/dL meet the criteria for diagnosis of diabetes. Reference: Standards of Medical Care in Diabetes 2016, [place] [employer] Association. Diabetes Care. 2016.39(Suppl 1). Interpretation and review of laboratory results Abnormal [facility] Potassium [Moles/Vol] 3.8 mmol/L 3.7 - 5.1 mmol/L [facility] Sodium [Moles/Vol] 137 mmol/L 136 - 144 mmol/L [facility] Urea nitrogen [Mass/Vol] 22 mg/dL High 7 - 21 mg/dL [facility] Anion gap [Moles/Vol] 13 mmol/L Normal 8-15 [facility] Comment on above: Order Comment: Speci men Type: BLOOD SPECIMEN Ordering Facility: [facility] Address: [address] [place] [address] Performed By: #### 2 4321-2 #### [facility] CLIA [id number] [address] [place] Calcium [Mass/Vol] 9.5 mg/dL Normal 8.5-10.2 [facility] Comment on above: Order Comment: Speci men Type: BLOOD SPECIMEN Ordering Facility: [facility] Address: [address] [place] [address] Performed By: #### 2 4321-2 #### [facility] CLIA [id number] [address] [place] [address] [place] Chloride [Moles/Vol] 98 mmol/L Normal 98-107 [facility] Comment on above: Order Comment: Speci men Type: BLOOD SPECIMEN Ordering Facility: [facility] Address: [address] [place] [address] Performed By: #### 2 4321-2 #### [facility] CLIA [id number] [address] [place] CO2 [Moles/Vol] 26 mmol/L Normal 22-30 [facility] Comment on above: Order Comment: Speci men Type: BLOOD SPECIMEN Ordering Facility: [facility] Address: [address] [place] [address] Performed By: #### 2 4321-2 #### [facility] CLIA [id number] [address] [place] Creatinine [Mass/Vol] 1.02 mg/dL High 0.58-0.96 [facility] Comment on above: Order Comment: Speci men Type: BLOOD SPECIMEN Ordering Facility: [facility] Address: [address] [place] [address] Performed By: #### 2 4321-2 #### [facility] CLIA [id number] [address] [place] Creatinine and Glomerular filtration rate.predicted panel (S/P/Bld) 61 mL/min/1.73m??? Normal >=60 [facility] Comment on above: Order Comment: Effie aguayo Type: BLOOD SPECIMEN Ordering Facility: [facility] Address: [address] [place] [address] Result Comment: Devika mated Glomerular Filtration Rate (eGFR) is calculated using the 2020 CKD-EPI creatinine equation. This equation utilizes serum creatinine, sex, and age as parameters. The creatinine assay has traceable calibration to isotope dilution-mass spectrometry. Refer to KDIGO guidelines for clinical interpretation. In patients with unstable renal function, e.g. those with acute kidney injury, the eGFR may not accurately reflect actual GFR. Performed By: #### 2 4321-2 #### [facility] CLIA [id number] [address] [place] [address] [place] Glucose [Mass/Vol] 101 mg/dL High 74-99 [facility] Comment on above: Order Comment: Effie aguayo Type: BLOOD SPECIMEN Ordering Facility: [facility] Address: [address] [place] [address] Result Comment: The [place] Diabetes Association (ADA) provides guidance for cutoff values for fasting glucose and random glucose. The ADA defines fasting as no caloric intake for at least 8 hours. Fasting plasma glucose results between 100 to 125 mg/dL indicate increased risk for diabetes (prediabetes). Fasting plasma glucose results greater than or equal to 126 mg/dL meet the criteria for diagnosis of diabetes. In the absence of unequivocal hyperglycemia, results should be confirmed by repeat testing. In a patient with classic symptoms of hyperglycemia or hyperglycemic crisis, random plasma glucose results greater than or equal to 200 mg/dL meet the criteria for diagnosis of diabetes. Reference: Standards of Medical Care in Diabetes 2016, [place] Diabetes Association. Diabetes Care. 2016.39(Suppl 1). Performed By: #### 2 4321-2 #### [facility] CLIA [id number] [address] [place] [address] [place] Potassium [Moles/Vol] 3.8 mmol/L Normal 3.7-5.1 [facility] Comment on above: Order Comment: Effie aguayo Type: BLOOD SPECIMEN Ordering Facility: [facility] Address: [address] [place] [address] Performed By: #### 2 4321-2 #### [facility] CLIA [id number] [address] STATES [facility] Sodium [Moles/Vol] 137 mmol/L Normal 136-144 [facility] Comment on above: Order Comment: Speci men Type: BLOOD SPECIMEN Ordering Facility: [facility] Address: [address] [place] [address] Performed By: #### 2 4321-2 #### [facility] CLIA [id number] [address] STATES [facility] Urea nitrogen [Mass/Vol] 22 mg/dL High 7-21 [facility] Comment on above: Order Comment: Speci men Type: BLOOD SPECIMEN Ordering Facility: [facility] Address: [address] [place] [address] Performed By: #### 2 4321-2 #### [facility] CLIA [id number] [address] CBC panel Auto (Bld)on 08-07 Erythrocyte distribution width (RBC) [Ratio] 13.9 % 11.5 - 15.0 % [facility] Hematocrit (Bld) [Volume fraction] 39 % 36.0 - 46.0 % [facility] Hemoglobin (Bld) [Mass/Vol] 12.8 g/dL 11.5 - 15.5 g/dL [facility] Interpretation and review of laboratory results Normal [facility] MCH (RBC) [Entitic mass] 30.4 pg 26.0 - 34.0 pg [facility] MCHC (RBC) [Mass/Vol] 32.8 g/dL 30.5 - 36.0 g/dL [facility] MCV (RBC) [Entitic vol] 92.6 fL 80.0 - 100.0 fL [facility] Nucleated RBC (Bld) [#/Vol] NINF [facility] Platelet mean volume (Bld) [Entitic vol] 11.9 fL 9.0 - 12.7 fL [facility] Platelets (Bld) [#/Vol] 281 10*3/uL [facility] RBC (Bld) [#/Vol] 4.21 10*6/uL 3.90 - 5.2 0 m/uL [facility] WBC (Bld) [#/Vol] 8.3 10*3/uL [facility] Erythrocyte distribution width (RBC) [Ratio] 13.9 % Normal 11.5-15.0 [facility] Comment on above: Order Comment: Speci men Type: BLOOD SPECIMEN Ordering Facility: [facility] Address: [address] [place] [address] Performed By: #### 5 8410-2 #### [facility] CLIA [id number] [address] Hematocrit (Bld) [Volume fraction] 39.0 % Normal 36.0-46.0 [facility] Comment on above: Order Comment: Speci men Type: BLOOD SPECIMEN Ordering Facility: [facility] Address: [address] [place] [address] Performed By: #### 5 8410-2 #### [facility] CLIA [id number] [address] STATES OF [facility] Hemoglobin (Bld) [Mass/Vol] 12.8 g/dL Normal 11.5-15.5 [facility] Comment on above: Order Comment: Speci men Type: BLOOD SPECIMEN Ordering Facility: [facility] Address: [address] [place] [address] Performed By: #### 5 8410-2 #### [facility] CLIA [id number] [address] MCH (RBC) [Entitic mass] 30.4 pg Normal 26.0-34.0 [facility] Comment on above: Order Comment: Speci men Type: BLOOD SPECIMEN Ordering Facility: [facility] Address: [address] [place] [address] Performed By: #### 5 8410-2 #### [facility] CLIA [id number] [address] STATES OF [facility] MCHC (RBC) [Mass/Vol] 32.8 g/dL Normal 30.5-36.0 [facility] Comment on above: Order Comment: Speci men Type: BLOOD SPECIMEN Ordering Facility: [facility] Address: [address] [place] [address] Performed By: #### 5 8410-2 #### [facility] CLIA [id number] [address] MCV (RBC) [Entitic vol] 92.6 fL Normal 80.0-100.0 [facility] Comment on above: Order Comment: Speci men Type: BLOOD SPECIMEN Ordering Facility: [facility] Address: [address] [place] [address] Performed By: #### 5 8410-2 #### [facility] CLIA [id number] [address] Nucleated RBC (Bld) [#/Vol] 10*3/uL Normal <0.01 [facility] Comment on above: Order Comment: Speci men Type: BLOOD SPECIMEN Ordering Facility: [facility] Address: [address] [place] [address] Performed By: #### 5 8410-2 #### [facility] CLIA [id number] [address] Platelet mean volume (Bld) [Entitic vol] 11.9 fL Normal 9.0-12.7 [facility] Comment on above: Order Comment: Speci men Type: BLOOD SPECIMEN Ordering Facility: [facility] Address: [address] [place] [address] Performed By: #### 5 8410-2 #### [facility] CLIA [id number] [address] OF [place] Platelets (Bld) [#/Vol] 281 10*3/uL Normal 150-400 [facility] Comment on above: Order Comment: Speci men Type: BLOOD SPECIMEN Ordering Facility: [facility] Address: [address] [place] [address] Performed By: #### 5 8410-2 #### [facility] CLIA [id number] [address] OF [place] RBC (Bld) [#/Vol] 4.21 10*6/uL Normal 3.90-5.20 [facility] Comment on above: Order Comment: Speci men Type: BLOOD SPECIMEN Ordering Facility: [facility] Address: [address] [place] [address] Performed By: #### 5 8410-2 #### [facility] CLIA [id number] [address] OF [facility] WBC (Bld) [#/Vol] 8.30 10*3/uL Normal 3.70-11.00 [facility] Comment on above: Order Comment: Speci men Type: BLOOD SPECIMEN Ordering Facility: [facility] Address: [address] [place] [address] Performed By: #### 5 8410-2 #### [facility] CLIA [id number] [address] CNOVon 08-07-2024 CNOV Office Visit (AKWO) -- TRUDY CALLE ([id number]) 1960 F Date Time Provider Department 08/07/24 1:00 PM OSTOMY NURSE DORCAS During your visit today, we recorded the following information about you: Amelia Bhat RN 08/07/2024 1:53 PM Signed OSTOMY CARE CONSULT NOTE SERVICE DATE: 08/07/2024 SERVICE TIME: 1:00 PM REASON FOR CONSULT: Stoma marking. TIME SPENT (minutes): 30 Pre-Op Education Patient can state a basic understanding of the disease and plan of surgery resulting in an ostomy. Ostomy type: Possible ileostomy, possible colostomy A description and explanation of the following was provided to the patient: Stoma apperance and function Purpose of the pouching system Postoperative ostomy care per ET/WOC Nurse Postoperative self ostomy care instruction Discharge equipment ordering and support options The following post operative concerns were addressed: Diet Fluid Intake ADL'S Clothing Adjustment Printed Literature specific to ostomy type was provided to the patient: yes The patient or accompanying person can verbalize understanding of the information given in the preoperative instructions: yes Stoma Marking The stoma marking purpose and procedure was explained: yes. The patient verbalized understanding and agrees to the marking: yes. Rectus Muscle borders are located: yes. Abdominal contour evaluation was performed in the sitting position and standing position. The stoma marking was made in RUQ, RLQ, LUQ, LLQ avoiding creases, scars, and midline. Patient is able to see site in the following positions: sitting position and standing position Gideon was made with surgical marker and covered with tegaderm. Patient given extra tegaderm to reinforce as needed. Comments: Due to the shape of the patient's abdomen the right and left stoma markings are very close together, if lower markings were marked lower the ostomy appliance would sit to low on the abdomen and adherence would be compromised so do not recommend stoma be placed lower than the markings. Thank you for including me in the care of this patient. Ostomy care to follow after surgery when consulted. SIGNATURE: EMANUEL Lorenz,RN,CWON PATIENT NAME: Trudy Calle DATE: August 07, 2024 TIME: 1:46 PM CONTACT#: [id number] Referring Provider: VIBHA FLORES [[id number]] Allergies As of Date: 08/07/2024 (No Known Allergies) Date Reviewed: 08/07/2024 Reviewed by: Osmel Mayes APRN.LEAVE MANAGER - Fully Assessed Reason for Visit: Stoma Markings [377] Cmt: Marked RUQ, LUQ only Primary Visit Diagnosis:Other specified counseling [Z71.89] Prescriptions as of 08/07/2024 - levothyroxine 150 mcg cap Take 150 mcg by mouth daily before breakfast. - clopidogrel (PLAVIX) 75 mg tablet Take 75 mg by mouth once daily. - losartan (COZAAR) 100 mg tablet Take 100 mg by mouth once daily. - hydroCHLOROthiazide 25 mg tablet Take 25 mg by mouth once daily. - metroNIDAZOLE (FLAGYL) 500 mg tablet Take two tabs by mouth at 1pm, 3pm, and 11pm the day prior to surgery. - neomycin 500 mg tablet Take two tabs by mouth at 1pm, 3pm, and 11pm the day prior to the surgery. - promethazine (PHENERGAN) 25 mg tablet Take 1 tab by mouth every 4 hours as needed for nausea. - atorvastatin (LIPITOR) 20 mg tablet Take 1 tablet by mouth every afternoon. - carvedilol (COREG) 6.25 mg tablet Take 1 tablet by mouth every afternoon. Problem List As Of Date 08/07/2024 Noted Resolved Hyperlipidemia [E78.5] Hypertension [I10] Hypothyroidism [E03.9] Pre-op exam [Z01.818] 08/07/2024 Rectal cancer (HCC) [C20] 08/07/2024 PVD (peripheral vascular disease) (HCC) [I73.9] 08/07/2024 PAD (peripheral artery disease) (HCC) [I73.9] 08/07/2024 Nicotine use [Z72.0] 08/07/2024 Letter Text Encounter Status:Closed by AMELIA BHAT on 08/07/24 [facility] CONFIRM BLOOD TYPEon 025 ABO group Nom (Bld) A [facility] Rh Nom (Bld) Positive [facility] ABO A [facility] Comment on above: Order Comment: Speci men Type: BLOOD SPECIMEN Ordering Facility: [facility] Address: [address] [place] [address] Performed By: #### C ONABO #### [facility] CLIA [id number] [address] [place] [address] Rh Nom (Bld) Positive [facility] Comment on above: Order Comment: Speci men Type: BLOOD SPECIMEN Ordering Facility: [facility] Address: [address] [place] [address] Performed By: #### C ONABO #### [facility] CLIA [id number] [address] [place] [address] HISTORY PHYSICALon HISTORY PHYSICAL HNO ID: [id number] Author: OSMEL MAYES APRN.LEAVE MANAGER Service: ? Author Type: Nurse Practitioner Type: H&P Filed: 08/07/2024 15:04 Note Text: [facility] HISTORY AND PHYSICAL EXAMINATION SERVICE DATE: 08/07/2024 SERVICE TIME: 2:05 PM PRIMARY CARE PHYSICIAN: Antoni Slaughter MD Assessment Patient has the following medical conditions which may affect francis-operative course: Pre-op exam see note for medical conditions which may affect francis-operative course that were addressed at today's visit. Rectal cancer (HCC) Surgery scheduled 08/13/2024 Hyperlipidemia Statin-instructed to continue perioperatively Hypertension Carvedilol-instructed to take DOS HCTZ-instructed to take DOS Losartan-instructed to hold DOS Hypothyroidism Levothyroxine 150 mcg-instructed to take DOS Managed per PCP No labs in epic PAD (peripheral artery disease) (HCC) Does not follow with vascular any longer. She follows with PCP. Plavix-instructed to get pre op instructions from surgeon and prescribing physician. Blockage in groin per patient No stent per patient Nicotine use 50 pack years-currently smoking 3/4 PPD Encouraged to cut back prior to surgery and avoid morning of surgery ANESTHESIA FINDINGS: Intubation History: No prior intubation Significant Anesthesia Considerations: none Airway History: No prior intubation Herring Activity Status Index: METS: Climb a flight of stairs or walk up a hill (5.50 METs) DASI Score: 5.5 Patient denies any chest pain or undue shortness of breath with the above physical activity. STOP-Bang Score: STOP-Bang Score: 0 ARISCAT Score: Age: 51-80 Preoperative SpO2: >=96% Respiratory infection in the last month: No Preoperative anemia: No Surgical incision: upper abdominal Duration of surgery: >3 hrs Emergency procedure: No ARISCAT Score: 41 I - PHYSICAL EVALUATION AIRWAY Patient intubated: No. DENTAL Dentures, upper: complete. Dentures, lower: complete. II - ANESTHESIA PLAN Anesthetic Plan: general Beta Jill Monitoring Plan Post Procedure Analgesic Plan Prepared for Surgery: CONSULTS: The following consults have been initiated at this time: anesthesia. Planned Anesthetic: general The Following Tests/Procedures Have Been Initiated: Orders Placed This Encounter CBC Standing Status: Future Expected Date: 08/07/2024 Expiration Date: 11/06/2024 BASIC METABOLIC PNL Standing Status: Future Expected Date: 08/07/2024 Expiration Date: 11/06/2024 Confirm Blood Type Standing Status: Future Expected Date: 08/07/2024 Expiration Date: 11/06/2024 Did Blood Bank direct you to place this order:: No - Presurgical Workflow Type and Screen, 30 day Standing Status: Future Expected Date: 08/07/2024 Expiration Date: 11/06/2024 Hospital of Planned Surgery or Procedure:: [facility] Status of surgery/procedure:: Scheduled Date of surgery/procedure:: 08/13/2024 levothyroxine 150 mcg cap Sig: Take 150 mcg by mouth daily before breakfast. clopidogrel (PLAVIX) 75 mg tablet Sig: Take 75 mg by mouth once daily. losartan (COZAAR) 100 mg tablet Sig: Take 100 mg by mouth once daily. hydroCHLOROthiazide 25 mg tablet Sig: Take 25 mg by mouth once daily. REASON FOR VISIT: Trudy Calle is a 63 year old female who is scheduled for Procedure(s) with comments: XI ROBOTIC LAPAROSCOPIC RESECTION COLON LOW ANTERIOR W/ COLORECTAL ANASTOMOSIS/ POSSIBLE STOMA/ ERAS/ W BLOCK (N/A) - ERAS WITH BLOCK at the request of Vibha Graham MD for routine HANDP. My final recommendation will be communicated back to the requesting physician by way of shared medical record or letter. Subjective The patient has the following: COVID-19 Immunization Status Current Care Gaps Covid-19 Vaccine ( season) Never done No completion, postpone, frequency change, or communication history exists for this topic. CHIEF COMPLAINT: The reason for this visit is to perform a comprehensive review of the patient's past medical history, assess their current health status and obtain any additional testing required based on anesthesia guidelines. We will also identify any potential anesthesia problems or contraindications to the planned procedure. HPI: Patient is a 63 year old female who presents for pre surgical testing. She had colonoscopy on 06/26/2024 for constipation and rectal bleeding. Mass was seen and biopsy demonstrated invasive adenocarcinoma. She has small amount of blood in stool . Denies abdominal pain, N/V. After discussion with the surgeon patient agrees to surgical intervention. REVIEW OF SYSTEMS: General: Negative for: unintentional weight change, malaise and fever. Neurological: Negative for: headaches, seizures and strokes. Respiratory: Positive for: tobacco use. Negative for: asthma, COPD, pneumonia within 6 weeks, URI < 2 weeks and ob (more content not included)... Normal [facility] TYPE AND SCREEN,30 DAYon ABO group Nom (Bld) A [facility] Blood group antibody screen Ql Negative [facility] Rh Nom (Bld) Positive [facility] ABO A Normal [facility] Comment on above: Order Comment: Speci men Type: BLOOD SPECIMENOrdering Facility: [facility] Address: [address] [place] [address] Performed By: #### T SCR30 ####[facility] [id number] [place] [id number] [place] [facility] Rh Nom (Bld) Positive Normal [facility] Comment on above: Order Comment: Speci men Type: BLOOD SPECIMENOrdering Facility: [facility] Address: [address] [place] [address] Performed By: #### T SCR30 ####[facility] [id number] [address] [place] Albumin to globulin ratioOrd ered By: Antoni Slaughter on 08-04-2024 Albumin/Globulin [Mass ratio] 1.1 {ratio} 0.9-2.4 [facility] Bilirubin, totalOrdered By: Antoni Slaughter on 08-04-2024 Bilirubin [Mass/Vol] 0.50 mg/dL 0.20-1.00 [facility] Comment on above: For patients on eltr ombopag therapy, use of Dimension Mehama TBIL is not recommended. Blood urea nitrogen (BUN)/cr eatinine ratioOrdered By: Anotni Slaughter on 08-04-2024 Urea nitrogen/Creatinine [Mass ratio] 21.5 mg/mg High 10-20 [facility] Carbon dioxide measurementOr dered By: Antoni Slaughter on 08-04-2024 CO2 [Moles/Vol] 28.0 mmol/L 21.0-32.0 [facility] Chloride measurementOrdered By: Antoni Slaughter on 08-04-2024 Chloride [Moles/Vol] 106 mmol/L 98-107 [facility] Comprehensive Metabolic Prof ilon 08-04-2024 Albumin [Mass/Vol] 3.7 g/dL Normal 3.2-5.0 [facility] Comment on above: Performed By: #### L 100.9950, L503.6550, L500.4050, L100.0100, L501.2300, L3100.2300, L501.5200, L503.6030 #### [facility] [address] [place], [address] Albumin/Globulin [Mass ratio] 1.1 {ratio} Normal 0.9-2.4 [facility] Comment on above: Performed By: #### L 100.9950, L503.6550, L500.4050, L100.0100, L501.2300, L3100.2300, L501.5200, L503.6030 #### [facility] [address] [place], [address] ALK P 115 U/L Normal 45-117 [facility] Comment on above: Performed By: #### L 100.9950, L503.6550, L500.4050, L100.0100, L501.2300, L3100.2300, L501.5200, L503.6030 #### [facility] [address] [place], [address] ALT [Catalytic activity/Vol] 20 U/L Normal 13-56 [facility] Comment on above: Performed By: #### L 100.9950, L503.6550, L500.4050, L100.0100, L501.2300, L3100.2300, L501.5200, L503.6030 #### [facility] [address] [place], [address] AST [Catalytic activity/Vol] 10 U/L Low 15-37 [facility] Comment on above: Performed By: #### L 100.9950, L503.6550, L500.4050, L100.0100, L501.2300, L3100.2300, L501.5200, L503.6030 #### [facility] [address] [place], [address] Bilirubin [Mass/Vol] 0.50 mg/dL Normal 0.20-1.00 [facility] Comment on above: Result Comment: For patients on eltrombopag therapy, use of Dimension Mehama TBIL is not recommended. Performed By: #### L 100.9950, L503.6550, L500.4050, L100.0100, L501.2300, L3100.2300, L501.5200, L503.6030 #### [facility] [address] [place], [address] BUN/CRE 21.5 RATIO High 10-20 [facility] Comment on above: Performed By: #### L 100.9950, L503.6550, L500.4050, L100.0100, L501.2300, L3100.2300, L501.5200, L503.6030 #### [facility] [address] [place], [address] CA,Total 9.5 mg/dL Normal 8.5-10.1 [facility] Comment on above: Performed By: #### L 100.9950, L503.6550, L500.4050, L100.0100, L501.2300, L3100.2300, L501.5200, L503.6030 #### [facility] [address] [place], [address] Chloride [Moles/Vol] 106 mmol/L Normal 98-107 [facility] Comment on above: Performed By: #### L 100.9950, L503.6550, L500.4050, L100.0100, L501.2300, L3100.2300, L501.5200, L503.6030 #### [facility] [address] [place], [address] CO2 [Moles/Vol] 28.0 mmol/L Normal 21.0-32.0 [facility] Comment on above: Performed By: #### L 100.9950, L503.6550, L500.4050, L100.0100, L501.2300, L3100.2300, L501.5200, L503.6030 #### [facility] [address] [place], [place], [id number] (651) Creatinine [Mass/Vol] 0.93 mg/dL Normal 0.55-1.02 [facility] Comment on above: Result Comment: The validity of the calculated GFR GFRAA in patients over 70 years has not been determined. Clinical correlation is essential. Performed By: #### L 100.9950, L503.6550, L500.4050, L100.0100, L501.2300, L3100.2300, L501.5200, L503.6030 #### [facility] [address] [place], [address] (163) EST GFR - AA 78 mL/min Normal >60 [facility] Comment on above: Result Comment: Afri can Ug[place] GFR Calc Performed By: #### L 100.9950, L503.6550, L500.4050, L100.0100, L501.2300, L3100.2300, L501.5200, L503.6030 #### [facility] [address] [place], [place], [id number] GAP 5 Normal 5-15 [facility] Comment on above: Performed By: #### L 100.9950, L503.6550, L500.4050, L100.0100, L501.2300, L3100.2300, L501.5200, L503.6030 #### [facility] [address] [place], [address] (830) GFR/1.73 sq M.predicted among non-blacks MDRD (S/P/Bld) [Vol rate/Area] 64 mL/min/{1.73_m2} Normal >60 [facility] Comment on above: Result Comment: Non- GFR Calc Performed By: #### L 100.9950, L503.6550, L500.4050, L100.0100, L501.2300, L3100.2300, L501.5200, L503.6030 #### [facility] [address] [place], [address] Globulin (S) [Mass/Vol] 3.5 g/dL Normal 2.2-4.2 [facility] Comment on above: Performed By: #### L 100.9950, L503.6550, L500.4050, L100.0100, L501.2300, L3100.2300, L501.5200, L503.6030 #### [facility] [address] [place], [address] Glucose [Mass/Vol] 108 mg/dL High 74-106 [facility] Comment on above: Result Comment: Fast ing Glucose result from 100 to 125 mg/dL suggests IMPAIRED HOMEOSTASIS per A.D.A. criteria. Performed By: #### L 100.9950, L503.6550, L500.4050, L100.0100, L501.2300, L3100.2300, L501.5200, L503.6030 #### [facility] [address] [place], [address] Potassium [Moles/Vol] 4.0 mmol/L Normal 3.5-5.1 [facility] Comment on above: Performed By: #### L 100.9950, L503.6550, L500.4050, L100.0100, L501.2300, L3100.2300, L501.5200, L503.6030 #### [facility] [address] [place], [address] Sodium [Moles/Vol] 140 mmol/L Normal 136-145 [facility] Comment on above: Performed By: #### L 100.9950, L503.6550, L500.4050, L100.0100, L501.2300, L3100.2300, L501.5200, L503.6030 #### [facility] [address] [place], [place], [id number] T PROT 7.2 g/dL Normal 6.4-8.2 [facility] Comment on above: Performed By: #### L 100.9950, L503.6550, L500.4050, L100.0100, L501.2300, L3100.2300, L501.5200, L503.6030 #### [facility] [address] [place], [address] Urea nitrogen [Mass/Vol] 20 mg/dL High 7-18 [facility] Comment on above: Performed By: #### L 100.9950, L503.6550, L500.4050, L100.0100, L501.2300, L3100.2300, L501.5200, L503.6030 #### [facility] [address] [place], [address] Estimated glomerular filtrat ion rate (GFR) AmericanOrdered By: Antoni Slaughter on 08-04-2024 Estimated GFR (MDRD) Amer 78 mL/min >60 [facility] Comment on above: GFR Calc Glomerular filtration rate ( GFR) estimationOrdered By: Antoni Slaughter on 08-04-2024 Estimated GFR (MDRD) Non-Af Amer 64 mL/min >60 [facility] Comment on above: Non- GFR Calc GFR/1.73 sq M.predicted among non-blacks MDRD (S/P/Bld) [Vol rate/Area] 64 mL/min/{1.73_m2} >60 [facility] Comment on above: Non- GFR Calc Glucose measurementOrdered B y: Antoni Slaughter on 08-04-2024 Glucose [Mass/Vol] 108 mg/dL High 74-106 [facility] Comment on above: Fasting Glucose resu lt from 100 to 125 mg/dL suggests IMPAIRED HOMEOSTASIS per A.D.A. criteria. High density lipoprotein (HD L) measurementOrdered By: Antoni Slaughter on 08-04-2024 Cholesterol in HDL [Mass/Vol] 35 mg/dL Low >40 [facility] Comment on above: The drugs N-Acetylcy steine and Metamizole may falsely depress this assay. Reference Range HDL <40 mg/dL Low HDL Cholesterol HDL >or= 60 mg/dL High HDL Cholesterol Internal Medicine Office Vis iton 08-04-2024 Internal Medicine Office Visit [facility] [address] [place], [place] [address] OFFICE VISIT Date of Service: 08/04/24 MR#: [id number] Acct: [id number] Name: TRUDY CALLE Rep #: [id number] : 1960 Provider: Dr. Antoni judge MD Age/Sex: 63/F [place] [facility] Status: Signed Intake Vital Signs 04/30/24 13:52 07/29/24 10:01 08/04/24 08:08 Height 5 ft 7 in 5 ft 7 in 5 ft 7 in Weight: 208 lb 4 oz BMI 32.5 BP 118/78 Blood Pressure Location Lt brachial Position Sitting Respiration 16 Pulse 73 Pulse Source Monitor Temp 96.4 F L Temp Source Temporal Pulse Oximetry (%) 98 Oxygen Delivery Method room air Intake Visit Reasons: 3 M FU Chief Complaint: 3 month fu [employer] Required: No Accompanied by: Self Is patient in pain?: No Allergies No Known Allergies Allergy (Verified 08/04/24 08:07) Medications ???Medication ???Instructions ???Recorded ???Confirmed ???Type clopidogrel 75 mg tablet 75 mg PO DAILY #90 tabs 11/01/23 0 08/04/24 Rx hydrochlorothiazide 25 mg tablet 25 mg PO QAM #90 tabs 11/01/23 Rx levothyroxine 150 mcg tablet 150 mcg PO DAILY #90 tabs 11/01/23 08/04/24 Rx losartan 100 mg tablet 100 mg PO DAILY #90 tabs 11/01/23 08/04/24 Rx carvedilol 6.25 mg tablet 6.25 mg PO DAILY #90 tabs 05/02/24 08/04/24 Rx atorvastatin 20 mg tablet 20 mg PO DAILY #90 tabs 05/05/24 0 08/04/24 Rx Have you fallen in the past year?: No Nurse's Note: needs refill on levothyroxine, took last tab today. the other meds have 0 refills but she still has some left will call when needed [facility] Medical History Wears glasses Smoker History of echocardiogram Cardiology follow-up encounter Wears dentures Blood in stool Chronic constipation Hyperlipidemia Health care maintenance Hypothyroidism Thyroid disease Hypertension Surgical History History of tonsillectomy ( 1963) Family History Father Heart disease Mother Breast cancer Heart disease Social History Smoking Status: Current every day smoker tobacco type: cigarettes alcohol intake: current alcohol intake frequency: holidays/special occasions only substance use type: does not use what type of physical activity do you participate in: walking and other details: work frequency: 5-6 times per week HPI HPI Chief Complaint: 3 month fu Details: TRUDY CALLE, is a 63 F who presents to the office today for follow-up of her chronic conditions. No acute concerns at this time. At her last visit, was referred to GI due to blood in her stool. Had a colonoscopy and following this, was diagnosed with rectal cancer. She was referred to a colorectal surgeon at the [facility] and plan is for surgery. Overall, she states that she is doing well. Appetite is good, no weight changes. Still has some constipation and MiraLAX had been recommended by the colorectal surgeon. History of hypertension, blood pressure today is at 118/78 mmHg. Chest pain, palpitation or shortness of breath. Taking her medication as prescribed. History of hypothyroidism on levothyroxine. Last TSH in June was elevated at 11.5. She states that she has been taking the medication consistently. Apart from constipation, no heat or cold intolerance and as above, no significant weight changes. Other chronic medical conditions are stable. ROS Const Constitutional: No body ache, excessive sweating, fatigue, fever(s), frequent falls, headache(s), snoring, weakness, weight change, sleep problems or change in appetite Eyes Eyes: No blurry vision, change in vision, bulging eyes, floaters, visual disturbances, eye pain or Light sensitivity ENT ENT: No abnormal hearing, ear or mastoid pain, tinnitus, balance problems, nosebleed/epistaxis, nasal congestion, headache(s), neck pain or sore throat Resp Respiratory: No cough, excessive phlegm production, pain on inspiration, shortness of breath, snoring or wheezing Cardio Cardiology: No chest pain at rest, chest pain with exertion, excessive sweating, shortness of breath, dyspnea on exertion, lightheadedness, orthopnea or palpitations Gastro GI: No abdominal pain, change in bowel habits, constipation, cramping, diarrhea, nausea/dyspepsia or vomiting Genitourinary-Female: No burning urination, painful urination, urinary incontinence, urinary frequency, blood in urine, suprapubic fullness, side pain, abnormal periods or pelvic pain Musc Musculoskeletal: No abnormal gait, joint pain, back pain, limited range of motion, neck pain, numbness, stiffness, tingling or Arthritis Skin Skin: No dry skin, redness, excessive hair (more content not included)... Normal [facility] - Chemistry and C hemistry - challengeOrdered By: Antoni Slaughter on 08-04-2024 AST [Catalytic activity/Vol] 10 U/L Low 15-37 [facility] Lipid Profileon 08-04-2024 Cholesterol [Mass/Vol] 229 mg/dL High 200 [facility] Comment on above: Result Comment: <200 mg/dL Desirable 200-240 mg/dL Borderline >240 mg/dL High Risk Performed By: #### L 100.9950, L503.6550, L500.4050, L100.0100, L501.2300, L3100.2300, L501.5200, L503.6030 #### [facility] [address] [place], [address] Cholesterol in HDL [Mass/Vol] 35 mg/dL Low [facility] Comment on above: Result Comment: The drugs N-Acetylcysteine and Metamizole may falsely depress this assay. Reference Range HDL <40 mg/dL Low HDL Cholesterol HDL >or= 60 mg/dL High HDL Cholesterol Performed By: #### L 100.9950, L503.6550, L500.4050, L100.0100, L501.2300, L3100.2300, L501.5200, L503.6030 #### [facility] [address] [place], [address] Cholesterol in LDL [Mass/Vol] 149 mg/dL High 0-130 [facility] Comment on above: Performed By: #### L 100.9950, L503.6550, L500.4050, L100.0100, L501.2300, L3100.2300, L501.5200, L503.6030 #### [facility] [address] [place], [place], [phone] Cholesterol in VLDL [Mass/Vol] 45 mg/dL High 5-40 [facility] Comment on above: Performed By: #### L 100.9950, L503.6550, L500.4050, L100.0100, L501.2300, L3100.2300, L501.5200, L503.6030 #### [facility] [address] [place], [place], [phone]) Triglyceride [Mass/Vol] 224 mg/dL High [facility] Comment on above: Result Comment: The drugs N-Acetylcysteine and Metamizole may falsely depress this assay. Serum Triglycerides Reference Interval Normal <150 mg/dL Borderline high 150 - 199 mg/dL High 200 - 499 mg/dL Very High > or = 500 mg/dL Performed By: #### L 100.9950, L503.6550, L500.4050, L100.0100, L501.2300, L3100.2300, L501.5200, L503.6030 #### [facility] [address] [place], [place], [phone]) Low density lipoprotein (LDL ) cholesterol measurementOrdered By: Antoni Slaughter on 08-04-2024 Cholesterol in LDL [Mass/Vol] 149 mg/dL High 0-130 [facility] Potassium measurementOrdered By: Antoni Slaughter on 08-04-2024 Potassium [Moles/Vol] 4.0 mmol/L 3.5-5.1 [facility] Serum anion gap measurementO rdered By: Antoni Slaughter on 08-04-2024 Anion gap [Moles/Vol] 5 mmol/L 5-15 [facility] Serum globulin measurementOr dered By: Antoni Slaughter on 08-04-2024 Globulin (S) [Mass/Vol] 3.5 g/dL 2.2-4.2 [facility] Serum or plasma alanine zhu otransferase (ALT) measurementOrdered By: Antoni Slaughter on 08-04-2024 ALT [Catalytic activity/Vol] 20 U/L 13-56 [facility] Serum or plasma albumin sourav urement (mass/volume)Ordered By: Antoni Slaughter on 08-04-2024 Albumin [Mass/Vol] 3.7 g/dL 3.2-5.0 [facility] Serum or plasma alkaline omid sphatase measurementOrdered By: Antoni Slaughter on 08-04-2024 ALP [Catalytic activity/Vol] 115 U/L 45-117 [facility] Serum or plasma calcium sourav urement (mass/volume)Ordered By: Antoni Slaughter on 08-04-2024 Calcium [Mass/Vol] 9.5 mg/dL 8.5-10.1 [facility] Serum or plasma cholesterol measurement (mass/volume)Ordered By: Antoni Slaughter on 08-04-2024 Cholesterol [Mass/Vol] 229 mg/dL High <200 [facility] Comment on above: <200 mg/dL Desirable 200-240 mg/dL Borderline >240 mg/dL High Risk Serum or plasma creatinine m easurement (mass/volume)Ordered By: Antoni Slaughter on 08-04-2024 Creatinine [Mass/Vol] 0.93 mg/dL 0.55-1.02 [facility] Comment on above: The validity of the calculated GFR & GFRAA in patients over 70 years has not been determined. Clinical correlation is essential. Serum or plasma thyroid stim ulating hormone (TSH) measurement (units/volume)Ordered By: Antoni Slaughter on 08-04-2024 TSH Qn 4.790 uIU/mL High 0.358-3.740 [facility] Serum or plasma urea nitroge n measurement (mass/volume)Ordered By: Antoni Slaughter on 08-04-2024 Urea nitrogen [Mass/Vol] 20 mg/dL High 7-18 [facility] Sodium levelOrdered By: Brad Slaughter on 08-04-2024 Sodium [Moles/Vol] 140 mmol/L 136-145 [facility] TSH QnOrdered By: Antoni Slaughter on 08-04-2024 Thyroid Stimulating Hormone (TSH) 4.790 uIU/mL High 0.358-3.740 [facility] Thyroid Stim Hormone (TSH)on 08-04-2024 TSH 4.790 uIU/mL High 0.358-3.740 [facility] Comment on above: Performed By: #### L 100.9950, L503.6550, L500.4050, L100.0100, L501.2300, L3100.2300, L501.5200, L503.6030 #### [facility] [address] [place], [place], [phone] Total proteinOrdered By: Juwan Slaughter on 08-04-2024 Protein [Mass/Vol] 7.2 g/dL 6.4-8.2 [facility] Triglycerides measurementOrd ered By: Antoni Slaughter on 08-04-2024 Triglyceride [Mass/Vol] 224 mg/dL High <199 [facility] Comment on above: The drugs N-Acetylcy steine and Metamizole may falsely depress this assay.Serum Triglycerides Reference Interval Normal <150 mg/dL Borderline high 150 - 199 mg/dL High 200 - 499 mg/dL Very High > or = 500 mg/dL Very low density lipoprotein (VLDL) cholesterol measurementOrdered By: Antoni Slaughter on 08-04-2024 Very low density lipoprotein (VLDL) cholesterol measurement 45 mg/dL High 5-40 [facility] VLDL Cholesterol 45 mg/dL High 5-40 [facility] CNOVon 08-01-2024 CNOV Office Visit (AGGENS 3) -- TRUDY CALLE ([id number]) 1960 F Date Time Provider Department 08/01/24 10:30 AM VIBHA FLORES3 During your visit today, we recorded the following information about you: Pulse Blood pressure Weight Height 71/minute 132/85 95.3 kg 1.702 m Vibha Flores MD 08/01/2024 12:43 PM Signed Vibha Flores M.D. Colon AND Rectal Surgery [address] [facility], [address] [place] [phone] CC: rectosigmoid cancer HPI: Trudy Calle is a 63 year old White female who was initially evaluated by gastroenterology for constipation and rectal bleeding. Colonoscopy on 06/26/2024 demonstrated an ulcerated partially obstructing large mass within the rectosigmoid. The scope was not advanced past the sigmoid due to poor prep. Biopsies returned with invasive adenocarcinoma. I have since reviewed her pelvic MRI as well as staging CTs. There is no evidence of metastatic disease and the lesion appears to be above the peritoneal reflection on the MRI. As this is upper rectal/rectosigmoid lesion, would proceed with upfront surgery. Patient presents today to discuss resection. Patient is otherwise doing well. No nausea/vomiting. No abdominal pain. Taking miralax daily and bowel movements are still a little difficulty but improved. Review of Systems: For pertinent positives and negatives, please see HPI PAST MEDICAL HISTORY Diagnosis Date Hyperlipidemia Hypertension Hypothyroidism No past surgical history on file. Social History Tobacco Use Smoking status: Every Day Current packs/day: 1.00 Types: Cigarettes Smokeless tobacco: Current No family history on file. The ROS, medical, surgical, family, and social history were reviewed by Vibha Flores MD ALLERGIES No Known Allergies Current Outpatient Medications Medication Sig atorvastatin (LIPITOR) 20 mg tablet Take 1 tablet by mouth every afternoon. carvedilol (COREG) 6.25 mg tablet Take 1 tablet by mouth every afternoon. No current facility-administered medications for this visit. Vitals: BP 132/85 (BP Site: Right Arm, BP Cuff Size: Large Adult) Pulse 71 Ht 170.2 cm (5' 7) Wt 95.3 kg (210 lb) BMI 32.89 kg/m? BMI 32.89 kg/(m2) Physical Exam Labs: No results found for: HB, HCT, WBC, PLT No results found for: CREAT No results found for: AST No results found for: ALT No results found for: BLSP, BLCUL, TBILI, CBILI, ABORHD, ABSCREEN, WBC, RBC, BILIT%DIG,%DBS Imagin07/04/24 MRI Pelvis Circumferential 2.16 cm fungating mass invading all 3 layers of the wall of the distal sigmoid colon and rectosigmoid junction located 11cm above the anal opening. There is extension of tumor through the outer covering of the distal sigmoid colon. Beneath the annular mass, there is a short segment of stenosis. There is thickening and edema and hyperenhancement of the inner mucosa and muscular portion of the wall of the entire rectum down to the anus most likely due to desmoplastic reaction. T3 tumor. No pelvic lymphadenopathy. 07/17/24 CT CAP No evidence of metastatic disease Hepatomegaly with fatty infiltration Umbilical hernia containing fat Pathology: Invasive adenocarcinoma Assessment/Plan: 1. Rectal cancer (HCC) (Primary) Plan for robot-assisted low anterior resection with possible ileostomy on 08/13. Discussed with patient that given the upper rectal location of her cancer, I would recommend pursuing upfront surgery since she has no evidence of metastatic disease and there does not appear to be any local invasion of adjacent structures. Since she is not undergoing pelvic radiation, we may be able to perform her surgery without a diverting ileostomy. Will still have patient marked for a stoma in the event we need to divert. Patient understands that this is a risk of the surgery. Other risks include pain, injury to adjacent structures, bleeding, and anastomotic leak. Patient is a current pack per day smoker. We discussed that she is at higher risk for wound complications and leak since she is a heavy smoker. Patient understands and agrees to proceed with surgery. She understands that pending final pathology, she may need adjuvant chemotherapy. Will send to Dr. Mooney post-op if indicated. - metroNIDAZOLE (FLAGYL) 500 mg tablet; Take two tabs by mouth at 1pm, 3pm, and 11pm the day prior to surgery. Dispense: 6 tablet; Refill: 0 - neomycin 500 mg tablet; Take two tabs by mouth at 1pm, 3pm, and 11pm the day prior to the surgery. Dispense: 6 tablet; Refill: 0 - promethazine (PHENERGAN) 25 mg tablet; Take 1 tab by mouth every 4 hours as needed for nausea. Dispense: 5 tablet; Refill: 0 Vibha Flores M.D. Please Note: This office note has been created using [employer], a speech recognition software program, and may contain errors (more content not included)... Normal [facility] CNOVon 07-18-2024 CNOV Office Visit (AGGENS 3) -- TRUDY CALLE ([id number]) 1960 F Date Time Provider Department 07/18/24 8:30 AM VIBHA FLORES3 During your visit today, we recorded the following information about you: Pulse Blood pressure Weight Height 76/minute 112/73 95.2 kg 1.702 m Vibha Flores MD 07/18/2024 12:37 PM Signed Vibha Flores M.D. Colon AND Rectal Surgery 1 [facility], [address] [place] [phone] CC: rectal cancer HPI: Trudy Calle is a 63 year old White female who was referred by MERON Page with [place] [facility] for newly diagnosed rectal adenocarcinoma. My final recommendations will be communicated back to the requesting physician by way of shared Medical record or letter to requesting physician via electronic or US mail. PCP: Dr. Antoni Slaughter Patient was initially evaluated by gastroenterology for constipation and rectal bleeding. She underwent a colonoscopy on 06/26/2024 that demonstrated an ulcerated partially obstructing large mass within the rectum that was circumferential. The scope not advanced past the sigmoid colon due to stool burden and poor prep. Multiple biopsies were taken of this lesion and final pathology returned with invasive adenocarcinoma. MSI testing is still pending. This was patient's first colonoscopy. Currently the patient feels well. She denies any abdominal or rectal pain. She does have some constipation and is taking MiraLAX daily. No nausea or vomiting. No unintentional weight loss. She denies any blood in her stool. There is no family history of colon or rectal cancer as far she knows. Past medical history significant for HTN, per patient right groin vascular blockage for which she is on plavix, HLD, hypothyroidism. Review of Systems: For pertinent positives and negatives, please see HPI PAST MEDICAL HISTORY Diagnosis Date Hyperlipidemia Hypertension Hypothyroidism No past surgical history on file. Social History Tobacco Use Smoking status: Every Day Types: Cigarettes Smokeless tobacco: Current No family history on file. The ROS, medical, surgical, family, and social history were reviewed by Vibha Flores MD ALLERGIES No Known Allergies Current Outpatient Medications Medication Sig atorvastatin (LIPITOR) 20 mg tablet Take 1 tablet by mouth every afternoon. carvedilol (COREG) 6.25 mg tablet Take 1 tablet by mouth every afternoon. No current facility-administered medications for this visit. Vitals: BP 112/73 Pulse 76 Ht 170.2 cm (5' 7) Wt 95.2 kg (209 lb 14.4 oz) BMI 32.87 kg/m? BMI 32.87 kg/(m2) Physical Exam Constitutional: General: She is not in acute distress. Appearance: Normal appearance. She is not ill-appearing. Cardiovascular: Rate and Rhythm: Normal rate and regular rhythm. Heart sounds: Normal heart sounds. No murmur heard. No friction rub. No gallop. Pulmonary: Effort: Pulmonary effort is normal. No respiratory distress. Breath sounds: Normal breath sounds. No wheezing or rales. Abdominal: General: There is no distension. Palpations: Abdomen is soft. There is no mass. Tenderness: There is no abdominal tenderness. There is no guarding or rebound. Genitourinary: Comments: Patient was examined in knee-chest with a tent assembler present. Externally there were small skin tags. On digital rectal exam, there was no mass that was palpable, no lesions noted, no blood present. Musculoskeletal: General: No deformity. Normal range of motion. Cervical back: Normal range of motion and neck supple. Lymphadenopathy: Cervical: No cervical adenopathy. Skin: General: Skin is warm and dry. Findings: No rash. Neurological: Mental Status: She is alert and oriented to person, place, and time. Gait: Gait is intact. Psychiatric: Mood and Affect: Mood and affect normal. Judgment: Judgment normal. Assessment/Plan: 1. Rectal cancer (HCC) Patient with a newly diagnosed rectal cancer per colonoscopy report however the pathology specimen is labeled sigmoid so it is unclear the exact location of this tumor. Per patient she had CTs as well as MRIs done for staging of her rectal cancer at [facility]. We will call to obtain the results of her imaging. We will also get the images uploaded to our system. Patient also states that she had a CEA drawn at [facility] as well. We also will request the final pathology to obtain MSI status on her tumor. Not clinically obstructed at this time. Encouraged her to continue MiraLAX. Pending the results of her imaging and the ultimate location of her tumor, if her cancer truly is in the rectum and there is no evidence of metastatic disease, she would likely need DILIA. If the cancer is more proximal and again there is no evidence of metastatic disease, can likely proceed directly to surgery. Referrals placed (more content not included)... Normal [facility] CT Chest, Abd, Pel w/Contras ton 07-17-2024 CT Chest, Abd, Pel w/Contrast [facility] Imaging Services [address] [place] [address] CT Chest, Abd, Pel w/Contrast MR#: [id number] Acct: [id number] Name: TRUDY CALLE Rep #: [id number] : 1960 F 63 From: Gideon Lawrence MD PCP: Dr. Antoni Slaughter MD Status: REG CLI Study: CT Chest, Abd, Pel w/Contrast Date of Exam: Exam# [id number] Ordering Dr: Sofia Cuadra EXAM: CT Chest, Abdomen and Pelvis With Intravenous Contrast CLINICAL INDICATION: TECHNIQUE: Axial computed tomography images of the chest, abdomen and pelvis with intravenous contrast. This CT exam was performed using one or more of the following dose reduction techniques: automated exposure control, adjustment of the mA and/or kV according to patient size, and/or use of iterative reconstruction technique. COMPARISON: No relevant prior studies available. FINDINGS: CHEST: LUNGS AND PLEURAL SPACES: Mild lung emphysema. No consolidation. No significant effusion. No pneumothorax. No suspicious pulmonary nodules. HEART: Unremarkable. No cardiomegaly. No significant pericardial effusion. No significant coronary artery calcifications. ABDOMEN: LIVER: Hepatomegaly with fatty infiltration. GALLBLADDER AND BILE DUCTS: Probable gallbladder sludge/cholelithiasis. No ductal dilation. PANCREAS: Unremarkable. No ductal dilation. No mass. SPLEEN: Unremarkable. No splenomegaly. ADRENALS: Unremarkable. No mass. KIDNEYS AND URETERS: Unremarkable. No hydronephrosis. No solid mass. STOMACH AND BOWEL: Constipation. Apparent thickening of the sigmoid colon could be secondary to underdistention or mass. Please refer to recent colonoscopy for further detail. PELVIS: APPENDIX: No findings to suggest acute appendicitis. BLADDER: Unremarkable. No mass. REPRODUCTIVE: Unremarkable as visualized. CHEST, ABDOMEN and PELVIS: INTRAPERITONEAL SPACE: Unremarkable. No significant fluid collection. No free air. BONES/JOINTS: Multilevel endplate degenerative change and disc disease of the lumbar spine. No acute fracture. No dislocation. SOFT TISSUES: Umbilical hernia containing fat. Bilateral inguinal hernias. VASCULATURE: Scattered calcified atherosclerotic disease of aorta. No aortic aneurysm. LYMPH NODES: Unremarkable. No enlarged lymph nodes. CT/CT Chest, Abd, Pel w/Contrast IMPRESSION: 1. Constipation. Apparent thickening of the sigmoid colon could be secondary to underdistention or mass. Please refer to recent colonoscopy for further detail. 2. Hepatomegaly with fatty infiltration. 3. Umbilical hernia containing fat. 4. No thoracic, abdominal or pelvic lymphadenopathy. No suspicious pulmonary nodules or osseous lesions. Reading Location: [facility] CC: Dr. Antoni Slaughter MD; MERON Page Installation Coordinator: Signed Normal [facility] Pelvis W/WO Contraston 07-04 Pelvis W/WO Contrast [facility] [address] [place], [place] [address] Pelvis W/WO Contrast MR#: [id number] Acct: [id number] Name: TRUDY CALLE Rep #: [id number] : 1960 F 63 From: Lebron horowitz MD PCP: Dr. Antoni Slaughter MD Status: REG CLI Study: Pelvis W/WO Contrast Date of Exam: 07/04/24 Exam# [id number] Ordering Dr: Dayton Lewis MD [id number] STUDY: MR PELVIS WITHOUT CONTRAST REASON FOR EXAM: Female, 63 years old. STAGING RECTAL CANCER, POSITIVE COLONOSCOPY 1WK AGO, BLOODY STOOL FEW MONTHS TECHNIQUE: Standardized fat and water weighted pulse sequences were obtained in all 3 orthogonal planes. COMPARISON: None. FINDINGS: * Circumferential 2.16 cm fungating mass invading all 3 layers of the wall of the distal sigmoid colon and rectosigmoid junction located 11 cm above the anal opening, see image #13/26 series 6. There is also extension of tumor through the outer covering of the distal sigmoid colon seen on image 12/26 series 6. This is also well visualized on the postcontrast image /44 series 14. 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 * No pelvic lymphadenopathy is present. * No marrow edema or lytic or blastic lesions or enhancing lesions are seen in the bony structures. * Bicornuate uterus noted. Unremarkable adnexa. Normal bilateral ovaries. Normal urinary bladder. Normal visualized small intestine. Normal remaining visualized colon. There is no pelvic fluid. There is no pelvic mass lesion or lymphadenopathy. Normal osseous structures. Normal abdominal wall. MRI/Pelvis W/WO Contrast IMPRESSION: 1. Circumferential 2.16 cm fungating mass invading all 3 layers of the wall of the distal sigmoid colon and rectosigmoid junction located 11 cm above the anal opening, see image #13/26 series 6. There is also extension of tumor through the outer covering of the distal sigmoid colon seen on image 12/26 series 6. This is also well visualized on the postcontrast image 22/44 series 14. 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 There is also moderate diffuse thickening and edema and hyperenhancement of the inner mucosa and muscular portion of the wall of the entire rectum down to the anus most likely due to desmoplastic reaction from the above tumor. * High position: 10 to 15 cm above the anal sphincter * T3: tumor invades through the muscularis propria into the subserosa or into non-peritonealised perirectal tissues without reaching the mesorectal fascia or adjacent organs * Consultation with surgery/oncology recommended * Correlation with PET/CT imaging also recommended. * A CT of abdomen and pelvis with contrast can be obtained to evaluate the remaining structures for possible distal metastasis or involvement. PRIMARY TUMOR STAGING (T) Strictly speaking TNM staging, such as the [place] Joint Committee on Cancer (AJCC) 8th edition, does not subclassify T3. However, this subclassification does have the treatment and prognostic significance 7,8; tumors with a stage T3b or less confer a 5-year cancer-specific survival rate of 85%, whereas tumors with a stage T3c or greater have a 54% survival rate. * Tx: primary tumor cannot be assessed * T0: no evidence of primary tumor * Tis: carcinoma in situ: intraepithelial or invasion of lamina propria * T1: tumor invades submucosa * T2: tumor invades muscularis propria * MRI does not yet have the resolution capable of enabling differentiation of T1 and T2 lesions * T3: tumor invades through the muscularis propria into the subserosa or into non-peritonealised perirectal tissues without reaching the mesorectal fascia or adjacent organs * T4: tumor invades directly into other organs or structures and/or perforates visceral peritoneum Tumor location: * High position: 10 to 15 cm above the anal sphincter * Mid position: 5 to 10 cm above the anal sphincter * Low position: 0 to 5 cm above the anal sphincter Layers of the rectum/rectosigmoid colon: * Submucosa * Muscularis propria * Mucosal rectum * Mesorectal fascia Peritoneal space Adjacent and distal organs Electronically Signed: Lebron Titus MD (more content not included)... Normal [facility] Carcinoembryonic Antigenon 0 07-03-2024 CEA 11.3 ng/mL High 0.0-4.7 [facility] Comment on above: Order Comment: PT NO T FASTING DR SLAUGHTER ORDERED TSHALL OTHER LABS WERE FOR DR LEWIS Result Comment: Nons mokers <3.9 Smokers <5.6 [facility] Electrochemiluminescence Immunoassay (ECLIA) Values obtained with different assay methods or kits cannot be used interchangeably. Results cannot be interpreted as absolute evidence of the presence or absence of malignant disease. Performed at: [place] [address] Rn Social Work: Osei Busch PhD, Phone: [phone] Performed By: #### L 100.9950, L503.6550, L500.4050, L100.0100, L501.2300, L3100.2300, L501.5200, L503.6030 #### [facility] Laboratory [facility] [place], [address] Absolute neutrophil countOrd ered By: Dayton Lewis on 07-02-2024 Neutrophils (Bld) [#/Vol] 5.4 10*3/uL 2.0-7.7 [facility] Albumin to globulin ratioOrd ered By: Dayton Lewis on 07-02-2024 Albumin/Globulin [Mass ratio] 1.0 {ratio} 0.9-2.4 [facility] Basophil percentageOrdered B y: Dayton Lewis on 07-02-2024 Basophils/100 WBC (Bld) 1.2 % High 0-1 [facility] Bilirubin, totalOrdered By: Dayton Lewis on 07-02-2024 Bilirubin [Mass/Vol] 0.50 mg/dL 0.20-1.00 [facility] Comment on above: For patients on eltr ombopag therapy, use of Dimension Mehama TBIL is not recommended. Blood urea nitrogen (BUN)/cr eatinine ratioOrdered By: Dayton Lewis on 07-02-2024 Urea nitrogen/Creatinine [Mass ratio] 17.1 mg/mg 10-20 [facility] CBC W/Diff, Automatedon 06-12 Absolute Lymph 1.58 X10 3/uL Normal 0.83-4.51 [facility] Comment on above: Order Comment: PT NO T FASTING DR SLAUGHTER ORDERED TSHALL OTHER LABS WERE FOR DR LEWIS Performed By: #### L 100.9950, L503.6550, L500.4050, L100.0100, L501.2300, L3100.2300, L501.5200, L503.6030 #### [facility] Laboratory [address] [place], [address] Absolute Neut 5.4 X10 3/uL Normal 2.0-7.7 [facility] Comment on above: Order Comment: PT NO T FASTING DR SLAUGHTER ORDERED TSHALL OTHER LABS WERE FOR DR LEWIS Performed By: #### L 100.9950, L503.6550, L500.4050, L100.0100, L501.2300, L3100.2300, L501.5200, L503.6030 #### [facility] Laboratory [address] [place], [address] Basophils/100 WBC (Bld) 1.2 % High 0-1 [facility] Comment on above: Order Comment: PT NO T FASTING DR SLAUGHTER ORDERED TSHALL OTHER LABS WERE FOR DR LEWIS Performed By: #### L 100.9950, L503.6550, L500.4050, L100.0100, L501.2300, L3100.2300, L501.5200, L503.6030 #### [facility] Laboratory [address] [place], [address] Eosinophils/100 WBC (Bld) 6.4 % High 0-5 [facility] Comment on above: Order Comment: PT NO T FASTING DR SLAUGHTER ORDERED TSHALL OTHER LABS WERE FOR DR LEWIS Performed By: #### L 100.9950, L503.6550, L500.4050, L100.0100, L501.2300, L3100.2300, L501.5200, L503.6030 #### [facility] Laboratory [address] [place], [address] Erythrocyte distribution width (RBC) [Ratio] 14.5 % Normal 11.6-14.6 [facility] Comment on above: Order Comment: PT NO T FASTING DR SLAUGHTER ORDERED TSHALL OTHER LABS WERE FOR DR LEWIS Performed By: #### L 100.9950, L503.6550, L500.4050, L100.0100, L501.2300, L3100.2300, L501.5200, L503.6030 #### [facility] Laboratory [address] [place], [place], [id number] Hematocrit (Bld) [Volume fraction] 38.1 % Normal 37-47 [facility] Comment on above: Order Comment: PT NO T FASTING DR SLAUGHTER ORDERED TSHALL OTHER LABS WERE FOR DR LEWIS Performed By: #### L 100.9950, L503.6550, L500.4050, L100.0100, L501.2300, L3100.2300, L501.5200, L503.6030 #### [facility] Laboratory [address] [place], [place], [id number] Hemoglobin (Bld) [Mass/Vol] 12.5 g/dL Normal 12.0-15.0 [facility] Comment on above: Order Comment: PT NO T FASTING DR SLAUGHTER ORDERED TSHALL OTHER LABS WERE FOR DR LEWIS Performed By: #### L 100.9950, L503.6550, L500.4050, L100.0100, L501.2300, L3100.2300, L501.5200, L503.6030 #### [facility] Laboratory [address] [place], [address] IG% 0.400 Normal 0.0-0.9 [facility] Comment on above: Order Comment: PT NO T FASTING DR SLAUGHTER ORDERED TSHALL OTHER LABS WERE FOR DR LEWIS Result Comment: IG% - Immature Granulocytes (promyelocytes, myelocytes and metamyelocytes) > 1% indicates that a LEFT SHIFT is Present. Performed By: #### L 100.9950, L503.6550, L500.4050, L100.0100, L501.2300, L3100.2300, L501.5200, L503.6030 #### [facility] Laboratory [address] [facility] [place], [address] Lymphocytes/100 WBC (Bld) 19.2 % Normal 19-41 [facility] Comment on above: Order Comment: PT NO T FASTING DR SLAUGHTER ORDERED TSHALL OTHER LABS WERE FOR DR LEWIS Performed By: #### L 100.9950, L503.6550, L500.4050, L100.0100, L501.2300, L3100.2300, L501.5200, L503.6030 #### [facility] Laboratory [address] [facility] [place], [address] MCH (RBC) [Entitic mass] 30.3 pg Normal 27.0-32.0 [facility] Comment on above: Order Comment: PT NO T FASTING DR SLAUGHTER ORDERED TSHALL OTHER LABS WERE FOR DR LEWIS Performed By: #### L 100.9950, L503.6550, L500.4050, L100.0100, L501.2300, L3100.2300, L501.5200, L503.6030 #### [facility] Laboratory [address] [place], [address] MCHC (RBC) [Mass/Vol] 32.8 g/dL Normal 32-36 [facility] Comment on above: Order Comment: PT NO T FASTING DR SLAUGHTER ORDERED TSHALL OTHER LABS WERE FOR DR LEWIS Performed By: #### L 100.9950, L503.6550, L500.4050, L100.0100, L501.2300, L3100.2300, L501.5200, L503.6030 #### [facility] Laboratory [address] [place], [address] MCV (RBC) [Entitic vol] 92.5 fL Normal 81-99 [facility] Comment on above: Order Comment: PT NO T FASTING DR SLAUGHTER ORDERED TSHALL OTHER LABS WERE FOR DR LEWIS Performed By: #### L 100.9950, L503.6550, L500.4050, L100.0100, L501.2300, L3100.2300, L501.5200, L503.6030 #### [facility] Laboratory [address] [place], [address] Monocytes/100 WBC (Bld) 7.5 % Normal 0-10 [facility] Comment on above: Order Comment: PT NO T FASTING DR SLAUGHTER ORDERED TSHALL OTHER LABS WERE FOR DR LEWIS Performed By: #### L 100.9950, L503.6550, L500.4050, L100.0100, L501.2300, L3100.2300, L501.5200, L503.6030 #### [facility] Laboratory [address] [place], [address] Neutrophils/100 WBC (Bld) 65.3 % Normal 47-70 [facility] Comment on above: Order Comment: PT NO T FASTING DR SLAUGHTER ORDERED TSHALL OTHER LABS WERE FOR DR LEWIS Performed By: #### L 100.9950, L503.6550, L500.4050, L100.0100, L501.2300, L3100.2300, L501.5200, L503.6030 #### [facility] Laboratory [address] [place], [address] Nucleated RBC (Bld) [#/Vol] 0 10*3/uL Normal 0-5 [facility] Comment on above: Order Comment: PT NO T FASTING DR SLAUGHTER ORDERED TSHALL OTHER LABS WERE FOR DR LEWIS Performed By: #### L 100.9950, L503.6550, L500.4050, L100.0100, L501.2300, L3100.2300, L501.5200, L503.6030 #### [facility] Laboratory [address] [place], [address] Platelet mean volume (Bld) [Entitic vol] 11.2 fL Normal 6.2-12.0 [facility] Comment on above: Order Comment: PT NO T FASTING DR SLAUGHTER ORDERED TSHALL OTHER LABS WERE FOR DR LEWIS Performed By: #### L 100.9950, L503.6550, L500.4050, L100.0100, L501.2300, L3100.2300, L501.5200, L503.6030 #### [facility] Laboratory [address] [place], [address] Platelets (Bld) [#/Vol] 242 10*3/uL Normal 150-450 [facility] Comment on above: Order Comment: PT NO T FASTING DR SLAUGHTER ORDERED TSHALL OTHER LABS WERE FOR DR LEWIS Performed By: #### L 100.9950, L503.6550, L500.4050, L100.0100, L501.2300, L3100.2300, L501.5200, L503.6030 #### [facility] Laboratory [address] [place], [address] RBC (Bld) [#/Vol] 4.12 10*6/uL Low 4.2-5.4 [facility] Comment on above: Order Comment: PT NO T FASTING DR SLAUGHTER ORDERED TSHALL OTHER LABS WERE FOR DR LEWIS Performed By: #### L 100.9950, L503.6550, L500.4050, L100.0100, L501.2300, L3100.2300, L501.5200, L503.6030 #### [facility] Laboratory [address] [place], [address] RDW SD 49.3 fl High 35.1-43.9 [facility] Comment on above: Order Comment: PT NO T FASTING DR SLAUGHTER ORDERED TSHALL OTHER LABS WERE FOR DR LEWIS Performed By: #### L 100.9950, L503.6550, L500.4050, L100.0100, L501.2300, L3100.2300, L501.5200, L503.6030 #### [facility] Laboratory [address] [place], [place], [id number] WBC (Bld) [#/Vol] 8.2 10*3/uL Normal 4.4-11.0 [facility] Comment on above: Order Comment: PT NO T FASTING DR SLAUGHTER ORDERED TSHALL OTHER LABS WERE FOR DR LEWIS Performed By: #### L 100.9950, L503.6550, L500.4050, L100.0100, L501.2300, L3100.2300, L501.5200, L503.6030 #### [facility] Laboratory [address] [facility] [place], [place], [phone] Carbon dioxide measurementOr dered By: Dayton Lewis on 07-02-2024 CO2 [Moles/Vol] 27.0 mmol/L 21.0-32.0 [facility] Chloride measurementOrdered By: Dayton Lewis on 07-02-2024 Chloride [Moles/Vol] 106 mmol/L 98-107 [facility] Comprehensive Metabolic Prof ilon 07-02-2024 Albumin [Mass/Vol] 3.6 g/dL Normal 3.2-5.0 [facility] Comment on above: Order Comment: PT NO T FASTING DR SLAUGHTER ORDERED TSHALL OTHER LABS WERE FOR DR REGAN Performed By: #### L 100.9950, L503.6550, L500.4050, L100.0100, L501.2300, L3100.2300, L501.5200, L503.6030 #### [facility] Laboratory [address] [place], [address] Albumin/Globulin [Mass ratio] 1.0 {ratio} Normal 0.9-2.4 [facility] Comment on above: Order Comment: PT NO T FASTING DR SLAUGHTER ORDERED TSHALL OTHER LABS WERE FOR DR REGAN Performed By: #### L 100.9950, L503.6550, L500.4050, L100.0100, L501.2300, L3100.2300, L501.5200, L503.6030 #### [facility] Laboratory [address] [place], [address] ALK P 112 U/L Normal 45-117 [facility] Comment on above: Order Comment: PT NO T FASTING DR SLAUGHTER ORDERED TSHALL OTHER LABS WERE FOR DR REGAN Performed By: #### L 100.9950, L503.6550, L500.4050, L100.0100, L501.2300, L3100.2300, L501.5200, L503.6030 #### [facility] Laboratory [address] [place], [place], [id number] ALT [Catalytic activity/Vol] 20 U/L Normal 13-56 [facility] Comment on above: Order Comment: PT NO T FASTING DR SLAUGHTER ORDERED TSHALL OTHER LABS WERE FOR DR REGAN Performed By: #### L 100.9950, L503.6550, L500.4050, L100.0100, L501.2300, L3100.2300, L501.5200, L503.6030 #### [facility] Laboratory [address] [place], [address] AST [Catalytic activity/Vol] 9 U/L Low 15-37 [facility] Comment on above: Order Comment: PT NO T FASTING DR SLAUGHTER ORDERED TSHALL OTHER LABS WERE FOR DR REGAN Performed By: #### L 100.9950, L503.6550, L500.4050, L100.0100, L501.2300, L3100.2300, L501.5200, L503.6030 #### [facility] Laboratory [address] [place], [address] Bilirubin [Mass/Vol] 0.50 mg/dL Normal 0.20-1.00 [facility] Comment on above: Order Comment: PT NO T FASTING DR SLAUGHTER ORDERED TSHALL OTHER LABS WERE FOR DR REGAN Result Comment: For patients on eltrombopag therapy, use of Dimension Mehama TBIL is not recommended. Performed By: #### L 100.9950, L503.6550, L500.4050, L100.0100, L501.2300, L3100.2300, L501.5200, L503.6030 #### [facility] Laboratory [address] [place], [address] BUN/CRE 17.1 RATIO Normal 10-20 [facility] Comment on above: Order Comment: PT NO T FASTING DR SLAUGHTER ORDERED TSHALL OTHER LABS WERE FOR DR REGAN Performed By: #### L 100.9950, L503.6550, L500.4050, L100.0100, L501.2300, L3100.2300, L501.5200, L503.6030 #### [facility] Laboratory [address] [place], [address] CA,Total 9.3 mg/dL Normal 8.5-10.1 [facility] Comment on above: Order Comment: PT NO T FASTING DR SLAUGHTER ORDERED TSHALL OTHER LABS WERE FOR DR REGAN Performed By: #### L 100.9950, L503.6550, L500.4050, L100.0100, L501.2300, L3100.2300, L501.5200, L503.6030 #### [facility] Laboratory [address] [place], [address] Chloride [Moles/Vol] 106 mmol/L Normal 98-107 [facility] Comment on above: Order Comment: PT NO T FASTING DR SLAUGHTER ORDERED TSHALL OTHER LABS WERE FOR DR REGAN Performed By: #### L 100.9950, L503.6550, L500.4050, L100.0100, L501.2300, L3100.2300, L501.5200, L503.6030 #### [facility] Laboratory [address] [place], [address] CO2 [Moles/Vol] 27.0 mmol/L Normal 21.0-32.0 [facility] Comment on above: Order Comment: PT NO T FASTING DR SLAUGHTER ORDERED TSHALL OTHER LABS WERE FOR DR REGAN Performed By: #### L 100.9950, L503.6550, L500.4050, L100.0100, L501.2300, L3100.2300, L501.5200, L503.6030 #### [facility] Laboratory [address] [place], [address] Creatinine [Mass/Vol] 0.94 mg/dL Normal 0.55-1.02 [facility] Comment on above: Order Comment: PT NO T FASTING DR SLAUGHTER ORDERED TSHALL OTHER LABS WERE FOR DR REGAN Result Comment: The validity of the calculated GFR GFRAA in patients over 70 years has not been determined. Clinical correlation is essential. Performed By: #### L 100.9950, L503.6550, L500.4050, L100.0100, L501.2300, L3100.2300, L501.5200, L503.6030 #### [facility] [address] [place], [address] EST GFR - AA 77 mL/min Normal >60 [facility] Comment on above: Order Comment: PT NO T FASTING DR SLAUGHTER ORDERED TSHALL OTHER LABS WERE FOR JASS Result Comment: Afri can Ugandan GFR Calc Performed By: #### L 100.9950, L503.6550, L500.4050, L100.0100, L501.2300, L3100.2300, L501.5200, L503.6030 #### [facility] Laboratory [address] [place], [place], [id number] [phone] Normal 5-15 [facility] Comment on above: Order Comment: PT NO T FASTING DR SLAUGHTER ORDERED TSHALL OTHER LABS WERE FOR DR REGAN Performed By: #### L 100.9950, L503.6550, L500.4050, L100.0100, L501.2300, L3100.2300, L501.5200, L503.6030 #### [facility] [address] [place], [place], [id number] GFR/1.73 sq M.predicted among non-blacks MDRD (S/P/Bld) [Vol rate/Area] 64 mL/min/{1.73_m2} Normal >60 [facility] Comment on above: Order Comment: PT NO T FASTING DR SLAUGHTER ORDERED TSHALL OTHER LABS WERE FOR DR REGAN Result Comment: Non- GFR Calc Performed By: #### L 100.9950, L503.6550, L500.4050, L100.0100, L501.2300, L3100.2300, L501.5200, L503.6030 #### [facility] [address] [place], [place], [id number] Globulin (S) [Mass/Vol] 3.7 g/dL Normal 2.2-4.2 [facility] Comment on above: Order Comment: PT NO T FASTING DR SLAUGHTER ORDERED TSHALL OTHER LABS WERE FOR DR REGAN Performed By: #### L 100.9950, L503.6550, L500.4050, L100.0100, L501.2300, L3100.2300, L501.5200, L503.6030 #### [facility] [address] [facility] [place], [address] Glucose [Mass/Vol] 93 mg/dL Normal 74-106 [facility] Comment on above: Order Comment: PT NO T FASTING DR SLAUGHTER ORDERED TSHALL OTHER LABS WERE FOR DR REGAN Performed By: #### L 100.9950, L503.6550, L500.4050, L100.0100, L501.2300, L3100.2300, L501.5200, L503.6030 #### [facility] [address] [place], [address] Potassium [Moles/Vol] 3.7 mmol/L Normal 3.5-5.1 [facility] Comment on above: Order Comment: PT NO T FASTING DR SLAUGHTER ORDERED TSHALL OTHER LABS WERE FOR DR REGAN Performed By: #### L 100.9950, L503.6550, L500.4050, L100.0100, L501.2300, L3100.2300, L501.5200, L503.6030 #### [facility] [address] [place], [address] Sodium [Moles/Vol] 140 mmol/L Normal 136-145 [facility] Comment on above: Order Comment: PT NO T FASTING DR SLAUGHTER ORDERED TSHALL OTHER LABS WERE FOR DR REGAN Performed By: #### L 100.9950, L503.6550, L500.4050, L100.0100, L501.2300, L3100.2300, L501.5200, L503.6030 #### [facility] [address] [place], [address] T PROT 7.3 g/dL Normal 6.4-8.2 [facility] Comment on above: Order Comment: PT NO T FASTING DR SLAUGHTER ORDERED TSHALL OTHER LABS WERE FOR DR REGAN Performed By: #### L 100.9950, L503.6550, L500.4050, L100.0100, L501.2300, L3100.2300, L501.5200, L503.6030 #### [facility] [address] [place], [address] Urea nitrogen [Mass/Vol] 16 mg/dL Normal 7-18 [facility] Comment on above: Order Comment: PT NO T FASTING DR SLAUGHTER ORDERED TSHALL OTHER LABS WERE FOR DR REGAN Performed By: #### L 100.9950, L503.6550, L500.4050, L100.0100, L501.2300, L3100.2300, L501.5200, L503.6030 #### [facility] [address] [place], [place], [id number] Eosinophil percentageOrdered By: Dayton Leiws on 07-02-2024 Eosinophils/100 WBC (Bld) 6.4 % High 0-5 [facility] Erythrocyte distribution wid th ratioOrdered By: Dayton Joshua on 07-02-2024 Erythrocyte distribution width (RBC) [Ratio] 14.5 % 11.6-14.6 [facility] Erythrocyte distribution wid th standard deviationOrdered By: Dayton Lewis on 07-02-2024 Erythrocyte distribution width (RBC) [Entitic vol] 49.3 fL High 35.1-43.9 [facility] Estimated glomerular filtrat ion rate (GFR) AmericanOrdered By: Dayton Lewis on 07-02-2024 Estimated GFR (MDRD) Amer 77 mL/min >60 [facility] Comment on above: GFR Calc Ferritinon 07-02-2024 Ferritin [Mass/Vol] 113 ng/mL Normal - [facility] Comment on above: Order Comment: PT NO T FASTING DR SLAUGHTER ORDERED TSHALL OTHER LABS WERE FOR DR REGAN Performed By: #### L 100.9950, L503.6550, L500.4050, L100.0100, L501.2300, L3100.2300, L501.5200, L503.6030 #### [facility] [address] [place], [place], [id number] Ferritin measurementOrdered By: Dayton Lewis on 07-02-2024 Ferritin [Mass/Vol] 113 ng/mL 252 [facility] Glomerular filtration rate ( GFR) estimationOrdered By: Dayton Lewis on 07-02-2024 Estimated GFR (MDRD) Non-Af Amer 64 mL/min >60 [facility] Comment on above: Non- GFR Calc Glucose measurementOrdered B y: Dayton Lewis on 07-02-2024 Glucose [Mass/Vol] 93 mg/dL 74-106 [facility] Hematocrit Auto (Bld) [Volum e fraction]Ordered By: Dayton Lewis on 07-02-2024 Hematocrit (Bld) [Volume fraction] 38.1 % 37-47 [facility] Hemoglobin (Reticulocytes) [ Entitic mass]Ordered By: Dayton Lewis on 07-02-2024 Reticulocyte Hemoglobin Equivalent 34.4 pg 30-35 [facility] Hemoglobin measurementOrdere d By: Dayton Lewis on 07-02-2024 Hemoglobin (Bld) [Mass/Vol] 12.5 g/dL 12.0-15.0 [facility] Immature granulocytes/100 WB C Auto (Bld)Ordered By: Dayton Lewis on 07-02-2024 Immature granulocytes/100 WBC (Bld) 0.400 % 0.0-0.9 [facility] Comment on above: IG% - Immature Granu locytes (promyelocytes, myelocytes and metamyelocytes) > 1% indicates that a LEFT SHIFT is Present. Immature reticulocyte fracti onOrdered By: Dayton Lewis on 07-02-2024 Immature Reticulocyte Fraction 10.80 % 3.00-15.90 [facility] Iron (Unsp spec) [Mass/Mass] Ordered By: Dayton Lewis on 07-02-2024 Iron [Mass/Vol] 54 ug/dL 50-170 [facility] Iron saturation [Mass fracti on]Ordered By: Dayton Lewis on 07-02-2024 Iron Saturation 18.6 % 15.0-55.0 [facility] Iron+Iron Binding Capacityon 07-02-2024 Iron [Mass/Vol] 54 ug/dL Normal 50-170 [facility] Comment on above: Order Comment: PT NO T FASTING DR SLAUGHTER ORDERED TSHALL OTHER LABS WERE FOR DR REGAN Performed By: #### L 100.9950, L503.6550, L500.4050, L100.0100, L501.2300, L3100.2300, L501.5200, L503.6030 #### [facility] [address] [place], [address] IRON SATURATION 18.6 Normal 15.0-55.0 [facility] Comment on above: Order Comment: PT NO T FASTING DR SLAUGHTER ORDERED TSHALL OTHER LABS WERE FOR DR REGAN Performed By: #### L 100.9950, L503.6550, L500.4050, L100.0100, L501.2300, L3100.2300, L501.5200, L503.6030 #### [facility] [address] [place], [address] TIBC 291 ug/dL Normal 250-450 [facility] Comment on above: Order Comment: PT NO T FASTING DR SLAUGHTER ORDERED TSHALL OTHER LABS WERE FOR DR REGAN Performed By: #### L 100.9950, L503.6550, L500.4050, L100.0100, L501.2300, L3100.2300, L501.5200, L503.6030 #### [facility] [address] [place], [place], [id number] LDHon 07-02-2024 LDH 139 U/L Normal 84-246 [facility] Comment on above: Order Comment: PT NO T FASTING DR SLAUGHTER ORDERED TSHALL OTHER LABS WERE FOR DR REGAN Performed By: #### L 100.9950, L503.6550, L500.4050, L100.0100, L501.2300, L3100.2300, L501.5200, L503.6030 #### [facility] [address] [place], [place], [id number] Laboratory - Chemistry and C hemistry - challengeOrdered By: Dayton Lewis on 07-02-2024 AST [Catalytic activity/Vol] 9 U/L Low 15-37 [facility] Lactate dehydrogenase (LDH) measurementOrdered By: Dayton Lewis on 07-02-2024 LDH [Catalytic activity/Vol] 139 U/L 84-246 [facility] Lymphocytes Auto (Unsp spec) [#/Vol]Ordered By: Dayton Lewis on 07-02-2024 Lymphocytes (Bld) [#/Vol] 1.58 10*3/uL 0.83-4.51 [facility] Lymphocytes/100 WBC Auto (Un sp spec)Ordered By: Dayton Lewis on 07-02-2024 Lymphocytes/100 WBC (Bld) 19.2 % 19-41 [facility] MCV (mean corpuscular volume ) determinationOrdered By: Dayton Lewis on 07-02-2024 MCV (RBC) [Entitic vol] 92.5 fL 81-99 [facility] Mean corpuscular hemoglobin (MCH) determinationOrdered By: Dayton Lewis on 07-02-2024 MCH (RBC) [Entitic mass] 30.3 pg 27.0-32.0 [facility] Mean corpuscular hemoglobin concentration (MCHC) determinationOrdered By: Dayton Lewis on 07-02-2024 MCHC (RBC) [Mass/Vol] 32.8 g/dL 32-36 [facility] Mean platelet volume determi nationOrdered By: Dayton Lewis on 07-02-2024 Platelet mean volume (Bld) [Entitic vol] 11.2 fL 6.2-12.0 [facility] Monocyte percentageOrdered B y: Dayton Lewis on 07-02-2024 Monocytes/100 WBC (Bld) 7.5 % 0-10 [facility] Neutrophil percentageOrdered By: Dayton Lewis on 07-02-2024 Neutrophils/100 WBC (Bld) 65.3 % 47-70 [facility] Nucleated red blood cell per centageOrdered By: Dayton Lewis on 07-02-2024 Nucleated RBC/100 WBC (Bld) [Ratio] 0 % 0-5 [facility] Oncology Visit Reporton 06-12 Oncology Visit Report [facility] [address] [place] [address] OFFICE VISIT Date of Service: 07/02/24 0959 MR#: [id number] Acct: [id number] Name: TRUDY CALLE Rep #: [id number] : 1960 From: Dayton Lewis MD Age/Sex: 63/F [place] [facility] [place] Status: Signed HPI Subjective Date of Service 07/02/24 Chief Complaint Referred for colorectal cancer. History of Present Illness 63y.o.woman presented with hematochezia, had colonoscopy on 06/26/2024. It showed malignant partially obstructing tumor in the rectosigmoid, 8-10 centimeters from the anal verge. Biopsy showed invasive moderately differentiated adenocarcinoma. She is now referred for further evaluation and management. She feels well. Denies weight loss, fever or shortness of breath. PFS Medical History Wears glasses Smoker History of echocardiogram Cardiology follow-up encounter Wears dentures Blood in stool Chronic constipation Hyperlipidemia Health care maintenance Hypothyroidism Thyroid disease Hypertension Surgical History History of tonsillectomy ( 1963) Family History Father Heart disease Mother Breast cancer Heart disease Social History Smoking Status: Current every day smoker tobacco type: cigarettes alcohol intake: current alcohol intake frequency: holidays/special occasions only substance use type: does not use what type of physical activity do you participate in: walking and other details: work frequency: 5-6 times per week ROS Constitutional Constitutional: Reports systems reviewed and no addt'l complaints, except as documented Eyes Eyes: Reports systems reviewed and no addt'l complaints, except as documented ENT HEENT: Reports systems reviewed and no addt'l complaints, except as documented Cardiovascular Cardiovascular: Reports systems reviewed and no addt'l complaints, except as documented Respiratory/Chest Respiratory/Chest: Reports systems reviewed and no addt'l complaints, except as documented Gastrointestinal Gastrointestinal: Reports systems reviewed and no addt'l complaints, except as documented Genitourinary Genitourinary: Reports systems reviewed and no addt'l complaints, except as documented Musculoskeletal Musculoskeletal: Reports systems reviewed and no addt'l complaints, except as documented Integumentary Integumentary: Reports systems reviewed and no addt'l complaints, except as documented Neurologic Neurologic: Reports systems reviewed and no addt'l complaints, except as documented Psychiatric Psychiatric: Reports systems reviewed and no addt'l complaints, except as documented Endocrine Endocrinology: Reports systems reviewed and no addt'l complaints, except as documented Hematologic/Lymphatic Hematologic/Lymphatic: Reports systems reviewed and no addt'l complaints, except as documented Allergic/Immunologic Allergic/Immunologic: Reports systems reviewed and no addt'l complaints, except as documented Intake Vital Signs 06/26/24 09:36 07/02/24 10:01 07/02/24 10:03 07/02/24 10:04 Height 5 ft 7 in 5 ft 7 in 5 ft 7 in 5 ft 7 in Weight: 95.424 kg 95.424 kg BMI 32.9 32.9 BP 129/79 H Blood Pressure Location Rt brachial Position Sitting Respiration 18 Pulse 69 Pulse Source Monitor Temp 98.3 F Temperature Source Temporal Artery Pulse Oximetry (%) 99 Oxygen Delivery Method room air Intake Is patient in pain?: No Allergies No Known Allergies Allergy (Verified 07/02/24 09:59) Medications ???Medication ???Instructions ???Recorded ???Confirmed ???Type clopidogrel 75 mg tablet 75 mg PO DAILY #90 tabs 11/01/23 07/02/24 Rx hydrochlorothiazide 25 mg tablet 25 mg PO QAM #90 tabs 11/01/23 07/02/24 Rx levothyroxine 150 mcg tablet 150 mcg PO DAILY #90 tabs 11/01/23 07/02/24 Rx losartan 100 mg tablet 100 mg PO DAILY #90 tabs 11/01/23 07/02/24 Rx carvedilol 6.25 mg tablet 6.25 mg PO DAILY #90 tabs 05/02/24 07/02/24 Rx atorvastatin 20 mg tablet 20 mg PO DAILY #90 tabs 05/05/24 07/02/24 Rx Have you fallen in the past year?: No Central Venous Access Central Venous Access: No Exam Physical Exam Const alert, oriented x3 and no apparent distress HEENT normocephalic, external ears normal and external nose normal Eyes PERRL, EOMs intact bilaterally, conjunctivae normal and no scleral icterus Neck supple Lymph Lymphatic: no lymphadenopathy noted Resp normal respiratory effort, no use of accessory muscles and clear to auscultation bilaterally Cardio regular rate, regular rhythm, S1 normal heart sound and S2 normal heart sound GI normal to inspection, n (more content not included)... Normal [facility] Platelet countOrdered By: Chelsea Lewis on 07-02-2024 Platelets (Bld) [#/Vol] 242 10*3/uL 150-450 [facility] Potassium measurementOrdered By: Dayton Lweis on 07-02-2024 Potassium [Moles/Vol] 3.7 mmol/L 3.5-5.1 [facility] RBC Auto (Bld) [#/Vol]Ordere d By: Dayton Lewis on 07-02-2024 RBC (Bld) [#/Vol] 4.12 10*6/uL Low 4.2-5.4 [facility] Retic Panelon 07-02-2024 IM RET FRACTION 10.80 Normal 3.00-15.90 [facility] Comment on above: Order Comment: PT NO T FASTING DR SLAUGHTER ORDERED TSHALL OTHER LABS WERE FOR DR LEWIS Performed By: #### L 100.9950, L503.6550, L500.4050, L100.0100, L501.2300, L3100.2300, L501.5200, L503.6030 #### [facility] [address] [place], [place], [id number] RET-HE 34.4 pg Normal 30-35 [facility] Comment on above: Order Comment: PT NO T FASTING DR SLAUGHTER ORDERED TSHALL OTHER LABS WERE FOR DR LEWIS Performed By: #### L 100.9950, L503.6550, L500.4050, L100.0100, L501.2300, L3100.2300, L501.5200, L503.6030 #### [facility] [address] [place], [place], [id number] Retic Count 2.01 High 0.5-1.5 [facility] Comment on above: Order Comment: PT NO T FASTING DR SLAUGHTER ORDERED [facility]SHALL OTHER LABS WERE FOR DR LEWIS Performed By: #### L 100.9950, L503.6550, L500.4050, L100.0100, L501.2300, L3100.2300, L501.5200, L503.6030 #### [facility] [address] [place], [address] Reticulocytes Auto (Bld) [#/ Vol]Ordered By: Dayton Lewis on 07-02-2024 Reticulocyte Count 2.01 % High 0.5-1.5 [facility] Serum anion gap measurementO rdered By: Dayton Lewis on 07-02-2024 Anion gap [Moles/Vol] 7 mmol/L 5-15 [facility] Serum globulin measurementOr dered By: Dayton Lewis on 07-02-2024 Globulin (S) [Mass/Vol] 3.7 g/dL 2.2-4.2 [facility] Serum or plasma alanine zhu otransferase (ALT) measurementOrdered By: Dayton Lewis on 07-02-2024 ALT [Catalytic activity/Vol] 20 U/L 13-56 [facility] Serum or plasma albumin sourav urement (mass/volume)Ordered By: Dayton Lewis on 07-02-2024 Albumin [Mass/Vol] 3.6 g/dL 3.2-5.0 [facility] Serum or plasma alkaline omid sphatase measurementOrdered By: Dayton Lewis on 07-02-2024 ALP [Catalytic activity/Vol] 112 U/L 45-117 [facility] Serum or plasma calcium sourav urement (mass/volume)Ordered By: Dayton Lewis on 07-02-2024 Calcium [Mass/Vol] 9.3 mg/dL 8.5-10.1 [facility] Serum or plasma creatinine m easurement (mass/volume)Ordered By: Dayton Lewis on 07-02-2024 Creatinine [Mass/Vol] 0.94 mg/dL 0.55-1.02 [facility] Comment on above: The validity of the calculated GFR & GFRAA in patients over 70 years has not been determined. Clinical correlation is essential. Serum or plasma thyroid stim ulating hormone (TSH) measurement (units/volume)Ordered By: Antoni Slaughter on 07-02-2024 TSH Qn 11.500 uIU/mL High 0.358-3.740 [facility] Serum or plasma urea nitroge n measurement (mass/volume)Ordered By: Dayton Lewis on 07-02-2024 Urea nitrogen [Mass/Vol] 16 mg/dL 7-18 [facility] Sodium levelOrdered By: Allen Lewis on 07-02-2024 Sodium [Moles/Vol] 140 mmol/L 136-145 [facility] TIBCOrdered By: Dayton Lewis on 07-02-2024 Total Iron Binding Capacity 291 ug/dL 250-450 [facility] TSH QnOrdered By: Antoni Slaughter on 07-02-2024 Thyroid Stimulating Hormone (TSH) 11.500 uIU/mL High 0.358-3.740 [facility] Thyroid Stim Hormone (TSH)on 07-02-2024 TSH 11.500 uIU/mL High 0.358-3.740 [facility] Comment on above: Order Comment: PT NO T FASTING DR SLAUGHTER ORDERED [facility]SHALL OTHER LABS WERE FOR DR REGAN Performed By: #### L 100.9950, L503.6550, L500.4050, L100.0100, L501.2300, L3100.2300, L501.5200, L503.6030 #### [facility] [address] [place], [address] Total proteinOrdered By: Eder Lewis on 07-02-2024 Protein [Mass/Vol] 7.3 g/dL 6.4-8.2 [facility] White blood cell (WBC) count Ordered By: Dayton Lewis on 07-02-2024 WBC (Bld) [#/Vol] 8.2 10*3/uL 4.4-11.0 [facility] Colonoscopy Reporton 025 Colonoscopy Report [facility] Medical Records Department [address] [place] [address] Colonoscopy Report MR#: [id number] Acct: [id number] Name: TRUDY CALLE Rep #: [id number] : 1960 63 From: Rivera Friend DO PCP: Dr. Antoni Slaughter MD Status:[facility] Patient Name: Trudy Calle Procedure Date: 06/26/2024 10:42 AM Date of : 1960 Age: 63 Procedure: Colonoscopy Indications: Screening for colorectal malignant neoplasm Providers: Rivera Townsend DO Referring MD: Antoni Slaughter MD Medicines: Monitored Anesthesia Care Patient Profile: This is a 63 year old female. Refer to note in patient chart for documentation of history and physical. Last Colonoscopy: none. The patient's first colonoscopy is today. Complications: No immediate complications. Procedure: Pre-Anesthesia Assessment: - Prior to the procedure, a History and Physical was performed, and patient medications and allergies were reviewed. The patient is competent. The risks and benefits of the procedure and the sedation options and risks were discussed with the patient. All questions were answered and informed consent was obtained. Patient identification and proposed procedure were verified by the physician in the pre-procedure area. Mental Status Examination: alert and oriented. Airway Examination: normal oropharyngeal airway and neck mobility. Respiratory Examination: clear to auscultation. CV Examination: normal. Prophylactic Antibiotics: The patient does not require prophylactic antibiotics. Prior Anticoagulants: The patient has taken no anticoagulant or antiplatelet agents except for NSAID medication. ASA Grade Assessment: II - A patient with mild systemic disease. After reviewing the risks and benefits, the patient was deemed in satisfactory condition to undergo the procedure. The anesthesia plan was to use monitored anesthesia care (MAC). Immediately prior to administration of medications, the patient was re-assessed for adequacy to receive sedatives. The heart rate, respiratory rate, oxygen saturations, blood pressure, adequacy of pulmonary ventilation, and response to care were monitored throughout the procedure. The physical status of the patient was re-assessed after the procedure. After I obtained informed consent, the scope was passed under direct vision. Throughout the procedure, the patient's blood pressure, pulse, and oxygen saturations were monitored continuously. The Colonoscope was introduced through the anus and advanced to the sigmoid colon. The colonoscopy was performed without difficulty. The patient tolerated the procedure well. The quality of the bowel preparation was poor. The rectum was photographed. Scope In: 10:48:53 AM Scope Out: 10:55:36 AM Total Procedure Duration Time 0 hours 6 minutes 43 seconds Findings: An ulcerated partially obstructing large mass was found in the rectum. The mass was circumferential. The mass measured ten cm in length. In addition, its diameter measured five mm. No bleeding was present. This was biopsied with a cold forceps for histology. Verification of patient identification for the specimen was done. Estimated blood loss was minimal. Stool was found in the rectum, in the recto-sigmoid colon and in the sigmoid colon, interfering with visualization. Impression: - Preparation of the colon was poor. - Malignant partially obstructing tumor in the rectum. Biopsied. - Stool in the rectum, in the recto-sigmoid colon and in the sigmoid colon. Recommendation: - Discharge patient to home. - Full liquid diet. - Continue present medications. - Await pathology results. - Refer to a colo-rectal surgeon in 1 day. - Referral to oncology for neoadjuvant therapy -CEA -CT scan of the chest abdomen pelvis - Repeat colonoscopy is recommended for surveillance. The colonoscopy date will be determined after pathology results from today's exam become available for review. Procedure Code(s): --- Professional --- 93632, 52, Colonoscopy, flexible; with biopsy, single or multiple CPT copyright 2021 [employer]. All rights reserved. The codes documented in this report are preliminary and upon mechanic industrial truck review may be revised to meet current compliance requirements. Rivera Townsend DO 06/26/2024 11:13:23 AM This report has been signed electronically. Number of Addenda: 0 Note Initiated On: 06/26/2024 10:42 AM 06/26/24 1113 Date Rivera Townsend DO Cosigner Signature: Date (if indicated) CC: Dr. Antoni Slaughter MD; Rivera Townsend DO Date Dictated: 06/26/24 1042 Date Transcribed: Installation Coordinator: DANDRE Signed [facility] HER-2-OLINDA (initial)on 2024 HER-2-OLINDA (initial) ------ Patient Age/Sex Location Account Attending Physician TRUDY CALLE 63/F EN [id number] Rivera Townsend DO Specimen: [id number] Received: 06/27/24135 Status: JOHNNY Analia Num: [id number] Spec Type: IMMUNO Subm Dr: Rivera Townsend DO [facility] [place] [address] SPECIMEN INFORMATION: Tissue Source: Sigmoid mass biopsy Clinical Info: Chronic constipation Specimen Number: [id number] CPT code: 25414,92431a5 METHODOLOGY: Deparaffinized sections of prefer/formalin-fixed tissue or PAP/DQ stained slides are incubated with monoclonal/polyclonal antibodies/oligonucleotide probes. Localization is made via biotin free immunoperoxidase method. Appropriate controls are performed and reacted as expected. Results on target cell population are indicated in the following table: RESULTS: ANTIBODY / CLONE RESULT Her-2neu (CB11) negative (0) MOC-31 (4561) positive MLH-1 (M1) positive MSH2 (25D12) positive MSH6 (44) positive PMS2 (AGY1544) positive Ki-67 (30-9) positive, high P53 (DO-7) positive (missense mutation pattern) Testing for Her2 by IHC if equivocal, recommend testing for Her2 by FISH(remove/not needed) These tests were developed and their performance characteristics determined by [facility]. They may not have been cleared or approved by the U.S. Food and Drug Administration. The FDA has determined that such clearance or approval is not necessary. The above immunohistochemical/dualIS H markers are ordered and reviewed by the Pathologist. INTERPRETATION: Sigmoid mass, biopsy: Invasive adenocarcinoma. Result of Microsatellite Instability Study: Negative (no loss of mismatch protein; no microsatellite instability detected). SJ 06/30/2024 Signed (signature on file) Dr. Gianluca Gamboa MD 06/30/24 1034 Normal [facility] Comment on above: Performed By: #### P HER2 ####[facility] [id number] [place], [address] MR/POSTOP.John 06-26-2024 MR/POSTOP.PORFIRIO [facility] Medical Records Department [address] [place] [address] Anesthesia Postop Eval I 06/26/24 1107 MR#: [id number] Acct: [id number] Name: TRUDY CALLE Rep #: [id number] : 1960 63 From: Merlin Robert PCP: Dr. Antoni Slaughter MD Status:REG SDC Y Race: C Location: [place] [address] Anesthesia: Postop Eval I Current Vital Signs Temperature: 98.3 F Pulse Rate: 76 Blood Pressure: 79/47 Respiratory Rate: 16 Pulse Ox: 98 Oxygen Delivery Method: Room Air Assessment Airway patent: Yes Spontaneous unlabored respirations: Yes Mental status: Asleep nausea: No Vomiting: No Anesthesia Complication: No Fluid Hydration Crystalloid volume administer (ml): 40 Total IV fluid infused: 40 Progress Note Anesthesia document: Postop Eval 1 completed: Yes 06/26/24 1108 Date Merlin Goodwin Signature: Date CC: Signed Normal [facility] MR/[id number] 06-26-2024 MR/POSTOPAN2 [facility] Medical Records Department [address] [place] [address] Anesthesia Postop Eval II 06/26/24 1145 MR#: [id number] Acct: [id number] Name: TRUDY CALLE Rep #: [id number] : 1960 63 From: Kolton Ness MD PCP: Dr. Antoni Slaughter MD Status:REG [facility] Y Race: C Location: [place] [address] Anesthesia Postop Eval I Sum Postop Eval Completion status Anesthesia document: Postop Eval 1 completed: Yes Anesthesia Postop Eval I Summary Anesthesia Postop Eval I Summary: Anesthesia Postop Eval I: Assessment Summary Airway patent Yes 06/26/24 11:08 [email or web address] Spontaneous unlabored Yes 06/26/24 11:08 [email or web address] respirations Mental status Asleep 06/26/24 11:08 [email or web address] nausea No 06/26/24 11:08 [email or web address] Vomiting No 06/26/24 11:08 [email or web address] Anesthesia Postop Eval I: Fluid Summary Crystalloid volume administer 40 06/26/24 11:08 [email or web address] (ml) Colloids volume administered ( ml) Blood Product volume administered (ml) Total IV fluid infused 40 06/26/24 11:08 [email or web address] Anesthesia Postop Eval I: Summary Notes Anesthesia Complication No 06/26/24 11:08 [email or web address] Anesthesia Complication Comment: Post-operative progress note Anesthesia: Postop Eval II Evaluation Mental status: Awake Pain Level: 0 nausea: No Vomiting: No 06/26/24 1145 Date Kolton Goodwin Signature: Date CC: Signed Normal [facility] Surgery Specimen Level Jung 06-26-2024 Surgery Specimen Level IV Patient Age/Sex Location Account Attending Physician TRUDY CALLE 63/F EN [id number] Rivera Townsend DO Specimen: [id number] Received: 06/26/24-1246 Status: JOHNNY Helms Num: [id number] Spec Type: COLON BX Subm Dr: Rivera Townsend, DO HEADER OPERATION: Colonoscopy with biopsy PRE-OP DIAGNOSIS: Chronic constipation TISSUE SUBMITTED: Sigmoid mass biopsy MICROSCOPIC DIAGNOSIS Sigmoid mass, biopsy: Invasive moderately differentiated adenocarcinoma. See comment. mr 06/27/2024 COMMENT Immunohistochemistry ([id number]) for microsatellite instability (mismatch repair of protein) will be performed and the results will be reported separately. Correlation with clinical, endoscopic findings and appropriate follow up are necessary. MICROSCOPIC DESCRIPTION Slides are reviewed. GROSS DESCRIPTION Received in fixative is one container labeled with the patient's name and designated Sigmoid mass biopsy. The specimen consists of multiple irregular fragments of light ryan soft tissue that in aggregate measure 2.0 x 0.5 x 0.2 cm. The specimen is totally submitted in one cassette. mr 06/26/2024 TC:0 CPT:53638 Patient Age/Sex Location Account Attending Physician TRUDY CALLE 63/F [place] [id number] Rivera Townsend DO Signed (signature on file) Dr. Gianluca Gamboa MD 06/27/24 1437 Normal [facility] Comment on above: Performed By: #### L 100.9950, L503.6550, L500.4050, L100.0100, L501.2300, L3100.2300, L501.5200, L503.6030 #### [facility] [address] [place], [address] Gastroenterology Visit Repor ton 06-17-2024 Gastroenterology Visit Report [facility] Gastroenterology [address] [place] [address] OFFICE VISIT Date of Service: 06/17/24 MR#: [id number] Acct: [id number] Name: TRUDY CALLE Rep #: [id number] : 1960 Provider: MERON Page Age/Sex: 63/F Location: [facility] Status: Signed Intake Vital Signs 04/30/24 13:52 Height 5 ft 7 in Weight: 210 lb 6 oz BMI 32.9 BP 120/84 H Blood Pressure Location Lt brachial Position Sitting Respiration 16 Pulse 86 Pulse Source Monitor Temp 97.1 F L Temp Source Temporal Pulse Oximetry (%) 95 Oxygen Delivery Method room air Intake Visit Reasons: Melena Chief Complaint: constipation Allergies No Known Allergies Allergy (Verified 04/30/24 13:49) Have you fallen in the past year?: No Nurse's Note: OV 06.17.24 Pt here to establish care with [facility] for constipation and occasional bleeding. Denies N/V and abdominal pain. Pt reports she has tried Miralax and OTC stool softeners to help relieve constipation but they only make her feel more bloated. No prior hx of colonoscopy or EGD. [facility] Medical History (Updated 04/30/24 @ 14:[address] Antoni Slaughter MD) Blood in stool Chronic constipation Hyperlipidemia Health care maintenance Hypothyroidism Thyroid disease Hypertension Family History Father Heart disease Mother Breast cancer Social History Smoking Status: Current every day smoker alcohol intake: never substance use type: does not use what type of physical activity do you participate in: walking and other details: work frequency: 5-6 times per week HPI HPI Chief Complaint: constipation Details: TRUDY CALLE, is a 63 F who presents to the office today for establishment with [facility]. Pt daniel been struggling with constipation for a few months now. Prior to this she was having regular bm daily. She is now having a bm once a week, if that. There was no medication changes at this time. The only change in her life was that she retired. She wonders if she is not moving enough and this is a factor. She has tried ex lax and miralax which gave her a bm but caused her al ot of cramping and discomfort. She feels she is eating less but has not had weight loss. She has had occasional bright red blood per rectum when she wipes. She has never had a colonoscopy before. She has no family hx of colon cancer. She denies abd pain, n/v, heartburn, diarrhea or melena. ROS Const Constitutional: No fatigue, fever(s) or weight change ENT ENT: No difficulty swallowing Gastro GI: Positive for change in bowel habits, constipation, excessive flatus and Blood in stool; No abdominal pain, belching, bloating, change in stool character, coffee ground emesis, cramping, diarrhea, heartburn, difficulty swallowing, feeling full early, incontinent of stools, Vomiting blood/hematemesis, loose stools, Black,tarry stools, nausea/dyspepsia, pain with swallowing, vomiting or other Musc Musculoskeletal: No joint pain Skin Skin: No yellowing of the eye or itchy eyes Psych Psychiatric: No anxiety and No depression Endo Endocrine: No fatigue or weight change Aller/Imm Allergy/Immunologic: No itchy eyes Bennett/Lymp Hematologic/Lymphatic: No easy bleeding or easy bruising Exam Const General: cooperative and comfortable Nutritional Appearance: average body habitus and well nourished HENIN Head: normal to inspection Ears: hearing grossly normal bilaterally Nose: external nose normal Face and sinus: normal facial exam Eyes General: appearance normal, both eyes and all related structures Neck Neck: normal visual inspection Chest Chest palpation inspection: normal inspection of the chest Resp Effort Inspection: normal respiratory effort Cardio Palpation: normal PMI Rate: regular rate Rhythm: regular rhythm GI Inspection: normal to inspection Auscultation: normal bowel sounds Percussion: normal to percussion Palpation: no hepatosplenomegaly Skin General: no rashes or lesions noted Neuro General: patient alert Extrem General: normal to inspection Psych Affect: normal affect Assessment and Plan Assessment and Plan (1) Chronic constipation: Status: Chronic Plan: This is a 63 yo female presenting for new onset issues with constipation. She is going at maximum once a week but sometimes less than this. Prior to this she was going once a day. She has never had a colonoscopy. SHe will need to undergo colonoscopy to assess for colon cancer as she has never had one and is having new symptoms of constipation. In the mean time she will try samples of Linzess 145 mcg. -Colonoscopy -Trial Linzess Coding Level of Care Code Off vis,new,level 4 Diagnoses Chronic constip (more content not included)... Normal [facility] Internal Medicine Office Vis iton 04-30-2024 Internal Medicine Office Visit [facility] [address] [place] [address] [place] [address] OFFICE VISIT Date of Service: 04/30/24 MR#: [id number] Acct: [id number] Name: TRUDY CALLE Rep #: [id number] : 1960 Provider: Dr. Antoni judge MD Age/Sex: 63/F [place] [facility] [place] Status: Signed Intake Vital Signs 11/01/23 15:38 04/30/24 13:52 Height 5 ft 7 in 5 ft 7 in Weight: 210 lb 6 oz BMI 32.9 BP 120/84 H Blood Pressure Location Lt brachial Position Sitting Respiration 16 Pulse 86 Pulse Source Monitor Temp 97.1 F L Temp Source Temporal Pulse Oximetry (%) 95 Oxygen Delivery Method room air Intake Visit Reasons: 6 M FU Chief Complaint: 6 m f/u [employer] Required: No Accompanied by: Self Is patient in pain?: No Allergies No Known Allergies Allergy (Verified 04/30/24 13:49) Medications ???Medication ???Instructions ???Recorded ???Confirmed ???Type naproxen sodium 220 mg capsule 220 mg PO BID PRN 03/04/20 04/30/24 History (Aleve) carvedilol 6.25 mg tablet 6.25 mg PO DAILY #90 tabs 11/01/23 04/30/24 Rx clopidogrel 75 mg tablet 75 mg PO DAILY #90 tabs 11/01/23 04/30/24 Rx hydrochlorothiazide 25 mg tablet 25 mg PO QAM #90 tabs 11/01/23 04/30/24 Rx levothyroxine 150 mcg tablet 150 mcg PO DAILY #90 tabs 11/01/23 04/30/24 Rx losartan 100 mg tablet 100 mg PO DAILY #90 tabs 11/01/23 04/30/24 Rx atorvastatin 20 mg tablet 20 mg PO DAILY #60 tabs 02/29/24 04/30/24 Rx Have you fallen in the past year?: No PFSH Medical History (Updated 04/30/24 @ 14:[address] Antoni Slaughter MD) Blood in stool Chronic constipation Hyperlipidemia Health care maintenance Hypothyroidism Thyroid disease Hypertension Family History Father Heart disease Mother Breast cancer Social History Smoking Status: Current every day smoker alcohol intake: never substance use type: does not use what type of physical activity do you participate in: walking and other details: work frequency: 5-6 times per week HPI HPI Chief Complaint: 6 m f/u Details: TRUDY CALLE, is a 63 F who presents to the office today for follow-up of her chronic conditions. Also has some concerns. She reports constipation. This has been ongoing for some months and worsening. 1 episode of bright red blood in stool, no known history of hemorrhoids. She denies straining. Tried some [id number] medication, does not remember the name but states that it is occasionally helpful. Admits to poor fiber intake. She however states that she stays well-hydrated. History of hypertension, blood pressure today at 120/84 mmHg. No chest pain, palpitation or shortness of breath. Taking her medication as prescribed. Other chronic medical conditions are stable. ROS Const Constitutional: No body ache, chills, excessive sweating, fatigue, fever(s), frequent falls, headache(s), snoring, weakness or change in appetite Eyes Eyes: No blurry vision, change in vision, bulging eyes, floaters, visual disturbances, eye pain or Light sensitivity ENT ENT: No abnormal hearing, ear or mastoid pain, tinnitus, balance problems, nosebleed/epistaxis, nasal congestion, headache(s), neck pain or sore throat Resp Respiratory: No cough, excessive phlegm production, pain on inspiration, shortness of breath, snoring or wheezing Cardio Cardiology: No chest pain at rest, chest pain with exertion, excessive sweating, dyspnea on exertion, lightheadedness, orthopnea or palpitations Gastro GI: No abdominal pain, change in bowel habits, constipation, cramping, diarrhea, nausea/dyspepsia or vomiting Genitourinary-Female: No burning urination, painful urination, urinary incontinence, urinary frequency, suprapubic fullness or side pain Musc Musculoskeletal: No abnormal gait, joint pain, back pain, limited range of motion, muscle cramps, muscle weakness, neck pain or numbness Skin Skin: No dry skin, redness, excessive hair growth, yellowing of the eye, lesions, itchy eyes, rash or wounds Neuro Neurology: No abnormal gait, abnormal hearing, abnormal speech, unsteady gait/balance, weakness, frequent falls, headache(s), memory loss, numbness or visual disturbances Psych Psychiatric: No anxiety, No change in appetite, No depression, No memory loss and No Thoughts of harming yourself/Others Endo Endocrine: No cold intolerance, excessive sweating, fatigue, flushing, heat intolerance, increased thirst/drinking or increased hunger Aller/Imm Allergy/Immunologic: No itchy eyes, seasonal allergy symptoms, hives or wheezing Bennett/Lymp Hematologic/Lymphatic: No easy bleeding or easy bruising Exam Const General: cooperative, comfortable and no acute distress Orientation: alert, awake and orien (more content not included)... Normal [facility] Basophil percentageOrdered B y: Gideon Bowman on 08-25-2022 Chloride [Moles/Vol] 106 mmol/L 98-107 [facility] Glucose [Mass/Vol] 101 mg/dL 74-106 [facility] Comment on above: Fasting Glucose resu lt from 100 to 125 mg/dL suggests IMPAIRED HOMEOSTASIS per A.D.A. criteria. Potassium [Moles/Vol] 4.0 mmol/L 3.5-5.1 [facility] Sodium [Moles/Vol] 140 mmol/L 136-145 [facility] Laboratory - Chemistry and C hemistry - challengeOrdered By: Gideon Bowman on 08-25-2022 CO2 [Moles/Vol] 28.0 mmol/L 21.0-32.0 [facility] Urea nitrogen/Creatinine [Mass ratio] 33.3 mg/mg 10-20 [facility] No Panel InformationOrdered By: Gideon Bowman on 08-25-2022 Estimated GFR (MDRD) Amer 105 mL/min >60 [facility] Comment on above: GFR Calc Estimated GFR (MDRD) Non-Af Amer 87 mL/min >60 [facility] Comment on above: Non- GFR Calc Serum or plasma calcium sourav urement (mass/volume)Ordered By: Gideon Bowman on 08-25-2022 Calcium [Mass/Vol] 9.3 mg/dL 8.5-10.1 [facility] Serum or plasma creatinine m easurement (mass/volume)Ordered By: Gideon Bowman on 08-25-2022 Creatinine [Mass/Vol] 0.72 mg/dL 0.55-1.02 [facility] Comment on above: The validity of the calculated GFR & GFRAA in patients over 70 years has not been determined. Clinical correlation is essential. Serum or plasma urea nitroge n measurement (mass/volume)Ordered By: Gideon Bowman on 08-25-2022 Urea nitrogen [Mass/Vol] 24 mg/dL 7-18 [facility] Thin prep Papanicolaou smear with manual screeningOrdered By: Gideon Bowman on 08-25-2022 Thin prep Papanicolaou smear with manual screening 6 5-15 [facility] Absolute lymphocyte countOrd ered By: Gideon Bowman on 07-28-2022 Lymphocytes Auto (Unsp spec) [#/Vol] 1.51 10*3/uL 0.83-4.51 [facility] Basophil percentageOrdered B y: Gideon Bowman on 07-28-2022 Basophils/100 WBC (Bld) 1.0 % 0-1 [facility] Bilirubin [Mass/Vol] 0.40 mg/dL 0.20-1.00 [facility] Comment on above: For patients on eltr ombopag therapy, use of Dimension Mehama TBIL is not recommended. Chloride [Moles/Vol] 105 mmol/L 98-107 [facility] Cholesterol [Mass/Vol] 287 mg/dL <200 [facility] Comment on above: <200 mg/dL Desirable 200-240 mg/dL Borderline >240 mg/dL High Risk Eosinophils/100 WBC (Bld) 5.2 % 0-5 [facility] Glucose [Mass/Vol] 91 mg/dL 74-106 [facility] Neutrophils (Bld) [#/Vol] 3.6 10*3/uL 2.0-7.7 [facility] Neutrophils/100 WBC (Bld) 60.6 % 47-70 [facility] Potassium [Moles/Vol] 4.2 mmol/L 3.5-5.1 [facility] Protein [Mass/Vol] 7.6 g/dL 6.4-8.2 [facility] Sodium [Moles/Vol] 139 mmol/L 136-145 [facility] Triglyceride [Mass/Vol] 227 mg/dL <199 [facility] Comment on above: The drugs N-Acetylcy steine and Metamizole may falsely depress this assay.Serum Triglycerides Reference Interval Normal <150 mg/dL Borderline high 150 - 199 mg/dL High 200 - 499 mg/dL Very High > or = 500 mg/dL WBC (Bld) [#/Vol] 5.9 10*3/uL 4.4-11.0 [facility] Blood erythrocytes count (nu mber/volume)Ordered By: Gideon Bowman on 07-28-2022 RBC (Bld) [#/Vol] 4.16 10*6/uL 4.2-5.4 [facility] Blood hemoglobin measurement (mass/volume)Ordered By: Gideon Bowman on 07-28-2022 Hemoglobin (Bld) [Mass/Vol] 12.7 g/dL 12.0-15.0 [facility] Blood lymphocytes/100 leukoc ytesOrdered By: Gideon Bowman on 07-28-2022 Lymphocytes/100 WBC (Bld) 25.5 % 19-41 [facility] Blood monocytes/100 leukocyt esOrdered By: Gideon Bowman on 07-28-2022 Monocytes/100 WBC (Bld) 7.4 % 0-10 [facility] Blood platelet mean volumeOr dered By: Gideon Bowman on 07-28-2022 Platelet mean volume (Bld) [Entitic vol] 12.3 fL 6.2-12.0 [facility] Determination of erythrocyte mean corpuscular volume (MCV)Ordered By: Gideon Bowman on 07-28-2022 MCV (RBC) [Entitic vol] 94.0 fL 81-99 [facility] Hematocrit Auto (Bld) [Volum e fraction]Ordered By: Gideon Bowman on 07-28-2022 Hematocrit (Bld) [Volume fraction] 39.1 % 37-47 [facility] Laboratory - Chemistry and C hemistry - challengeOrdered By: Gideon Bowman on 07-28-2022 ALP [Catalytic activity/Vol] 84 U/L 45-117 [facility] ALT [Catalytic activity/Vol] 22 U/L 13-56 [facility] CO2 [Moles/Vol] 28.0 mmol/L 21.0-32.0 [facility] Globulin (S) [Mass/Vol] 3.7 g/dL 2.2-4.2 [facility] Urea nitrogen/Creatinine [Mass ratio] 23.3 mg/mg 10-20 [facility] Laboratory - Hematology and Cell countsOrdered By: Gideon Bowman on 07-28-2022 Erythrocyte distribution width (RBC) [Entitic vol] 50.5 fL 35.1-43.9 [facility] Erythrocyte distribution width (RBC) [Ratio] 14.6 % 11.6-14.6 [facility] Immature granulocytes/100 WBC (Bld) 0.300 % 0.0-0.9 [facility] Comment on above: IG% - Immature Granu locytes (promyelocytes, myelocytes and metamyelocytes) > 1% indicates that a LEFT SHIFT is Present. MCH (RBC) [Entitic mass] 30.5 pg 27.0-32.0 [facility] Nucleated RBC/100 WBC (Bld) [Ratio] 0 % 0-5 [facility] MCHC Auto (RBC) [Mass/Vol]Or dered By: Gideon Bowman on 07-28-2022 MCHC (RBC) [Mass/Vol] 32.5 g/dL 32-36 [facility] No Panel InformationOrdered By: Gideon Bowman on 07-28-2022 Estimated GFR (MDRD) Amer 91 mL/min >60 [facility] Comment on above: GFR Calc Estimated GFR (MDRD) Non-Af Amer 75 mL/min >60 [facility] Comment on above: Non- GFR Calc Thyroid Stimulating Hormone (TSH) 0.41 uIU/mL 0.358-3.74 [facility] Platelets bldOrdered By: Tiffany Bomwan on 07-28-2022 Platelets (Bld) [#/Vol] 231 10*3/uL 150-450 [facility] Serum or plasma albumin sourav urement (mass/volume)Ordered By: Gideon Bowman on 07-28-2022 Albumin [Mass/Vol] 3.9 g/dL 3.2-5.0 [facility] Serum or plasma albumin/glob ulin mass ratioOrdered By: Gideon Bowman on 07-28-2022 Albumin/Globulin [Mass ratio] 1.1 {ratio} 0.9-2.4 [facility] Serum or plasma calcium sourav urement (mass/volume)Ordered By: Gideon Bowman on 07-28-2022 Calcium [Mass/Vol] 9.3 mg/dL 8.5-10.1 [facility] Serum or plasma cholesterol in HDL measurement (mass/volume)Ordered By: Gideon Bowman on 07-28-2022 Cholesterol in HDL [Mass/Vol] 34 mg/dL >40 [facility] Comment on above: The drugs N-Acetylcy steine and Metamizole may falsely depress this assay. Reference Range HDL <40 mg/dL Low HDL Cholesterol HDL >or= 60 mg/dL High HDL Cholesterol Serum or plasma cholesterol in VLDL measurement (mass/volume)Ordered By: Gideon Bowman on 07-28-2022 Cholesterol in VLDL [Mass/Vol] 45 mg/dL 5-40 [facility] Serum or plasma creatinine m easurement (mass/volume)Ordered By: Gideon Bowman on 07-28-2022 Creatinine [Mass/Vol] 0.81 mg/dL 0.55-1.02 [facility] Comment on above: The validity of the calculated GFR & GFRAA in patients over 70 years has not been determined. Clinical correlation is essential. Serum or plasma low density lipoprotein (LDL) cholesterol measurement (mass/volume)Ordered By: Gideon Bowman on 07-28-2022 Cholesterol in LDL [Mass/Vol] 208 mg/dL 0-130 [facility] Serum or plasma urea nitroge n measurement (mass/volume)Ordered By: Gideon Bowman on 07-28-2022 Urea nitrogen [Mass/Vol] 19 mg/dL 7-18 [facility] Thin prep Papanicolaou smear with manual screeningOrdered By: Gideon Bowman on 07-28-2022 Thin prep Papanicolaou smear with manual screening 16 U/L 15-37 [facility] Thin prep Papanicolaou smear with manual screening 6 5-15 [facility] CORONAVIRUS PCR - [facility] 07-01-2021 SARS-CoV-2 (COVID-19) RNA JESSICA+probe Ql (Unsp spec) Positive Abnormal NORMAL: NEGATIVE [facility] Comment on above: Result Comment: { CA LLED TO INFECTION CONTROL { READ BACK BY Performed By: #### [id number] #### [facility],[address] [place] [address] SEND TO IC? YES Normal [facility] Comment on above: Result Comment: RESU LTS FAXED TO INFECTION CONTROL. SARS-CoV-2 THIS TEST IS BEING USED UNDER THE FDA EUA PROCEDURE. THIS ASSAY HAS BEEN VALIDATED IN THE [facility] FOR USE WITH NASOPHARYNGEAL SPECIMENS IN [facility]. INTERPRETIVE DATA LABORATORY TEST RESULTS SHOULD ALWAYS BE CONSIDERED IN THE CONTEXT OF CLINICAL OBSERVATIONS AND EPIDEMIOLOGICAL DATA IN MAKING FINAL DIAGNOSIS AND PATIENT MANAGEMENT DECISIONS. PATIENT MANAGEMENT SHOULD FOLLOW CURRENT CDC GUIDELINES. A POSITIVE TEST RESULT FOR COVID-19 INDICATES THAT RNA FROM SARS-CoV-2 WAS DETECTED, AND THE PATIENT IS INFECTED WITH THE VIRUS AND PRESUMED TO BE CONTAGIOUS. A NEGATIVE TEST RESULT FOR THIS TEST MEANS THAT SARS-CoV-2 RNA WAS NOT PRESENT IN THE SPECIMEN ABOVE THE LIMIT OF DETECTION. HOWEVER, A NEGATVIE RESULT DOES NOT RULE OUT COVID-19 AND SHOULD NOT BE USED THE SOLE BASIS FOR TREATMENT OR PATIENT MANAGEMENT DECISIONS. A NEGATIVE RESULT DOES NOT EXCLUDE THE POSSIBILITY OF COVID-19. WHEN DIAGNOSTIC TESTING IS NEGATIVE, THE POSSIBLILTY OF A FALSE NEGATIVE RESULT SHOULD BE CONSIDERED IN THE CONTEXT OF A PATIENT'S RECENT EXPOSURES AND THE PRESENCE OF CLINICAL SIGNS AND SYMPTOMS CONSISTENT WITH COVID-19. THE POSSIBILITY OF A FALSE NEGATIVE RESULT SHOULD ESPECIALLY BE CONSIDERED IF THE PATIENT'S RECENT EXPOSURES OR CLINICAL PRESENTATION INDICATE THAT COVID-19 IS LIKELY, AND DIAGNOSTIC TESTS FOR OTHER CAUSES OF ILLNESS (e.g., OTHER RESPIRATORY ILLNESS) ARE NEGATIVE. IF COVID-19 IS STILL SUSPECTED BASED ON EXPOSURE HISTORY TOGETHER WITH OTHER CLINICAL FINDINGS, RE-TESTED SHOULD BE CONSIDERED BY HEALTHCARE PROVIDERS IN CONSULTATION WITH PUBLIC HEALTH AUTHORITIES. Performed By: #### [id number] #### [facility],[address] [place] [address] Vital Signs Date Time Vital Sign Value Performing Clinician Suleiman ray 12-01-2024 10:02-0400 Body height 170.[address] Antoni Slaughter MD Work Phone: [facility] 12-01-2024 10:02-0400 Body mass index (BMI) [Ratio] 32.4 kg/m2 Dr. Antoni Slaughter MD Work Phone: [facility] 12-01-2024 10:02-0400 Body temperature 96.2 [degF] Dr. Antoni Slaughter MD Work Phone: [facility] 12-01-2024 10:02-0400 Body weight 93.[address] Antoni Slaughter MD Work Phone: [facility] 12-01-2024 10:02-0400 Diastolic blood pressure 62 mm[Hg] Dr. Antoni Slaughter MD Work Phone: [facility] 12-01-2024 10:02-0400 Heart rate 58 /min Dr. Antoni Slaughter MD Work Phone: [facility] 12-01-2024 10:02-0400 Respiratory rate 18 /min Dr. Antoni Slaughter MD Work Phone: [facility] 12-01-2024 10:02-0400 SaO2% (BldA) [Mass fraction] 97 % Dr. Antoni Slaughter MD Work Phone: [facility] 12-01-2024 10:02-0400 Systolic blood pressure 99 mm[Hg] Dr. Antoni Slaughter MD Work Phone: [facility] 11-19-2024 10:09-0400 Body temperature 95.8 [degF] Dr. Antoni Slaughter MD Work Phone: [facility] 11-19-2024 10:09-0400 Diastolic blood pressure 69 mm[Hg] Dr. Antoni Slaughter MD Work Phone: [facility] 11-19-2024 10:09-0400 Heart rate 71 /min Dr. Antoni Slaughter MD Work Phone: [facility] 11-19-2024 10:09-0400 Respiratory rate 16 /min Dr. Antoni Slaughter MD Work Phone: [facility] 11-19-2024 10:09-0400 SaO2% (BldA) [Mass fraction] 99 % Dr. Antoni Slaughter MD Work Phone: [facility] 11-19-2024 10:09-0400 Systolic blood pressure 140 mm[Hg] Dr. Antoni Slaughter MD Work Phone: [facility] 11-17-2024 09:07-0400 Body height 170.[address] Antoni Slaughter MD Work Phone: [facility] 11-17-2024 09:07-0400 Body mass index (BMI) [Ratio] 32.8 kg/m2 Dr. Antoni Slaughter MD Work Phone: [facility] 11-17-2024 09:07-0400 Body temperature 98.3 [degF] Dr. Antoni Slaughter MD Work Phone: [facility] 11-17-2024 09:07-0400 Body weight 95.[address] Antoni Slaughter MD Work Phone: [facility] 11-17-2024 09:07-0400 Diastolic blood pressure 76 mm[Hg] Dr. Antoni Slaughter MD Work Phone: [facility] 11-17-2024 09:07-0400 Heart rate 73 /min Dr. Antoni Slaughter MD Work Phone: [facility] 11-17-2024 09:07-0400 Respiratory rate 18 /min Dr. Antoni Slaughter MD Work Phone: [facility] 11-17-2024 09:07-0400 SaO2% (BldA) [Mass fraction] 98 % Dr. Antoni Slaughter MD Work Phone: [facility] 11-17-2024 09:07-0400 Systolic blood pressure 123 mm[Hg] Dr. Antoni Slaughter MD Work Phone: [facility] 11-06-2024 12:05-0400 Body temperature 97.6 [degF] Dr. Antoni Slaughter MD Work Phone: [facility] 11-06-2024 12:05-0400 Diastolic blood pressure 65 mm[Hg] Dr. Antoni Slaughter MD Work Phone: [facility] 11-06-2024 12:05-0400 Heart rate 72 /min Dr. Antoni Slaughter MD Work Phone: [facility] 11-06-2024 12:05-0400 Respiratory rate 16 /min Dr. Antoni Slaughter MD Work Phone: [facility] 11-06-2024 12:05-0400 SaO2% (BldA) [Mass fraction] 98 % Dr. Antoni Slaughter MD Work Phone: [facility] 11-06-2024 12:05-0400 Systolic blood pressure 122 mm[Hg] Dr. Antoni Slaughter MD Work Phone: [facility] 2024 09:13-0400 Body height 170.[address] Antoni Slaughter MD Work Phone: [facility] 2024 09:13-0400 Body mass index (BMI) [Ratio] 32.8 kg/m2 Dr. Antoni Slaughter MD Work Phone: [facility] 2024 09:13-0400 Body temperature 97.4 [degF] Dr. Antoni Slaughter MD Work Phone: [facility] 2024 09:13-0400 Body weight 94.[address] Antoni Slaughter MD Work Phone: [facility] 2024 09:13-0400 Diastolic blood pressure 80 mm[Hg] Dr. Antoni Slaughter MD Work Phone: [facility] 2024 09:13-0400 Heart rate 90 /min Dr. Antoni Slaughter MD Work Phone: [facility] 2024 09:13-0400 Respiratory rate 16 /min Dr. Antoni Slaughter MD Work Phone: [facility] 2024 09:13-0400 SaO2% (BldA) [Mass fraction] 98 % Dr. Antoni Slaughter MD Work Phone: [facility] 2024 09:13-0400 Systolic blood pressure 138 mm[Hg] Dr. Antoni Slaughter MD Work Phone: [facility] 11-04-2024 09:46-0400 Body height 170.[address] Antoni Slaughter MD Work Phone: [facility] 11-04-2024 09:46-0400 Body mass index (BMI) [Ratio] 32.5 kg/m2 Dr. Antoni Slaughter MD Work Phone: [facility] 11-04-2024 09:46-0400 Body temperature 98.6 [degF] Dr. Antoni Slaughter MD Work Phone: [facility] 11-04-2024 09:46-0400 Body weight 94.[address] Antoni Slaughter MD Work Phone: [facility] 11-04-2024 09:46-0400 Diastolic blood pressure 76 mm[Hg] Dr. Antoni Slaughter MD Work Phone: [facility] 11-04-2024 09:46-0400 Heart rate 62 /min Dr. Antoni Slaughter MD Work Phone: [facility] 11-04-2024 09:46-0400 Respiratory rate 18 /min Dr. Antoni Slaughter MD Work Phone: [facility] 11-04-2024 09:46-0400 SaO2% (BldA) [Mass fraction] 99 % Dr. Antoni Slaughter MD Work Phone: [facility] 11-04-2024 09:46-0400 Systolic blood pressure 119 mm[Hg] Dr. Antoni Slaughter MD Work Phone: [facility] 10-22-2024 11:12-0400 Body temperature 97.4 [degF] Dr. Antoni Slaughter MD Work Phone: [facility] 10-22-2024 11:12-0400 Diastolic blood pressure 68 mm[Hg] Dr. Antoni Slaughter MD Work Phone: [facility] 10-22-2024 11:12-0400 Heart rate 71 /min Dr. Antoni Slaughter MD Work Phone: [facility] 10-22-2024 11:12-0400 Respiratory rate 16 /min Dr. Antoni Slaughter MD Work Phone: [facility] 10-22-2024 11:12-0400 SaO2% (BldA) [Mass fraction] 98 % Dr. Antoni Slaughter MD Work Phone: [facility] 10-22-2024 11:12-0400 Systolic blood pressure 146 mm[Hg] Dr. Antoni Slaughter MD Work Phone: [facility] 10-20-2024 09:32-0400 Body mass index (BMI) [Ratio] 32.2 kg/m2 Dr. Antoni Slaughter MD Work Phone: [facility] 10-20-2024 09:32-0400 Body temperature 98.3 [degF] Dr. Antoni Slaughter MD Work Phone: [facility] 10-20-2024 09:32-0400 Body weight 93.[address] Antoni Slaughter MD Work Phone: [facility] 10-20-2024 09:32-0400 Diastolic blood pressure 72 mm[Hg] Dr. Antoni Slaughter MD Work Phone: [facility] 10-20-2024 09:32-0400 Heart rate 70 /min Dr. Antoni Slaughter MD Work Phone: [facility] 10-20-2024 09:32-0400 Respiratory rate 18 /min Dr. Antoni Slaughter MD Work Phone: [facility] 10-20-2024 09:32-0400 SaO2% (BldA) [Mass fraction] 99 % Dr. Antoni Slaughter MD Work Phone: [facility] 10-20-2024 09:32-0400 Systolic blood pressure 113 mm[Hg] Dr. Antoni Slaughter MD Work Phone: [facility] 10-06-2024 15:16-0400 Inhaled oxygen flow rate 2 L/min Dr. Antoni Slaughter MD Work Phone: [facility] 10-06-2024 09:33-0400 Body mass index (BMI) [Ratio] 32.5 kg/m2 Dr. Antoni Slaughter MD Work Phone: [facility] 10-06-2024 09:33-0400 Body temperature 96 [degF] Dr. Antoni Slaughter MD Work Phone: [facility] 10-06-2024 09:33-0400 Body weight 94.[address] Antoni Slaughter MD Work Phone: [facility] 10-06-2024 09:33-0400 Diastolic blood pressure 72 mm[Hg] Dr. Antoni Slaughter MD Work Phone: [facility] 10-06-2024 09:33-0400 Heart rate 73 /min Dr. Antoni Slaughter MD Work Phone: [facility] 10-06-2024 09:33-0400 Respiratory rate 16 /min Dr. Antoni Slaughter MD Work Phone: [facility] 10-06-2024 09:33-0400 SaO2% (BldA) [Mass fraction] 98 % Dr. Antoni Slaughter MD Work Phone: [facility] 10-06-2024 09:33-0400 Systolic blood pressure 115 mm[Hg] Dr. Antoni Slaughter MD Work Phone: [facility] 09-29-2024 09:55-0400 Body mass index (BMI) [Ratio] 31.8 kg/m2 Dr. Antoni Slaughter MD Work Phone: [facility] 09-29-2024 09:55-0400 Body temperature 98 [degF] Dr. Antoni Slaughter MD Work Phone: [facility] 09-29-2024 09:55-0400 Body weight 92.[address] Antoni Slaughter MD Work Phone: [facility] 09-29-2024 09:55-0400 Diastolic blood pressure 66 mm[Hg] Dr. Antoni Slaughter MD Work Phone: [facility] 09-29-2024 09:55-0400 Heart rate 82 /min Dr. Antoni Slaughter MD Work Phone: [facility] 09-29-2024 09:55-0400 Respiratory rate 16 /min Dr. Antoni Slaughter MD Work Phone: [facility] 09-29-2024 09:55-0400 SaO2% (BldA) [Mass fraction] 98 % Dr. Antoni Slaughter MD Work Phone: [facility] 09-29-2024 09:55-0400 Systolic blood pressure 97 mm[Hg] Dr. Antoni Slaughter MD Work Phone: [facility] 09-22-2024 09:20-0400 Body mass index (BMI) [Ratio] 32.5 kg/m2 Dr. Antoni Slaughter MD Work Phone: [facility] 09-22-2024 09:20-0400 Body temperature 98.2 [degF] Dr. Antoni Slaughter MD Work Phone: [facility] 09-22-2024 09:20-0400 Body weight 94.[address] Antoni Slaughter MD Work Phone: [facility] 09-22-2024 09:20-0400 Diastolic blood pressure 88 mm[Hg] Dr. Antoni Slaughter MD Work Phone: [facility] 09-22-2024 09:20-0400 Heart rate 74 /min Dr. Antoni Slaughter MD Work Phone: [facility] 09-22-2024 09:20-0400 Respiratory rate 18 /min Dr. Antoni Slaughter MD Work Phone: [facility] 09-22-2024 09:20-0400 SaO2% (BldA) [Mass fraction] 95 % Dr. Antoni Slaughter MD Work Phone: [facility] 09-22-2024 09:20-0400 Systolic blood pressure 124 mm[Hg] Dr. Antoni Slaughter MD Work Phone: [facility] 09-17-2024 09:55-0400 Body temperature 97.6 [degF] Dr. Antoni Slaughter MD Work Phone: [facility] 09-17-2024 09:55-0400 Diastolic blood pressure 69 mm[Hg] Dr. Antoni Slaughter MD Work Phone: [facility] 09-17-2024 09:55-0400 Heart rate 66 /min Dr. Antoni Slaughter MD Work Phone: [facility] 09-17-2024 09:55-0400 Respiratory rate 16 /min Dr. Antoni Slaughter MD Work Phone: [facility] 09-17-2024 09:55-0400 SaO2% (BldA) [Mass fraction] 95 % Dr. Antoni Slaughter MD Work Phone: [facility] 09-17-2024 09:55-0400 Systolic blood pressure 109 mm[Hg] Dr. Antoni Slaughter MD Work Phone: [facility] 09-17-2024 07:48-0400 Body height 170.[address] Antoni Slaughter MD Work Phone: [facility] 09-17-2024 07:48-0400 Body mass index (BMI) [Ratio] 31.7 kg/m2 Dr. Antoni Slaughter MD Work Phone: [facility] 09-17-2024 07:48-0400 Body weight [address] Antoni Slaughter MD Work Phone: [facility] 09-09-2024 14:56-0400 Body mass index (BMI) [Ratio] 32.2 kg/m2 Dr. Antoni Slaughter MD Work Phone: [facility] 09-09-2024 14:56-0400 Body temperature 97.4 [degF] Dr. Antoni Slaughter MD Work Phone: [facility] 09-09-2024 14:56-0400 Body weight 93.[address] Antoni Slaughter MD Work Phone: [facility] 09-09-2024 14:56-0400 Diastolic blood pressure 81 mm[Hg] Dr. Antoni Slaughter MD Work Phone: [facility] 09-09-2024 14:56-0400 Heart rate 86 /min Dr. Antoni Slaughter MD Work Phone: [facility] 09-09-2024 14:56-0400 Respiratory rate 16 /min Dr. Antoni Slaughter MD Work Phone: [facility] 09-09-2024 14:56-0400 SaO2% (BldA) [Mass fraction] 98 % Dr. Antoni Slaughter MD Work Phone: [facility] 09-09-2024 14:56-0400 Systolic blood pressure 144 mm[Hg] Dr. Antoni Slaughter MD Work Phone: [facility] 09-08-2024 09:17-0400 Body weight 93.[address] Antoni Slaughter MD Work Phone: [facility] 09-08-2024 08:54-0400 Diastolic blood pressure 72 mm[Hg] Dr. Antoni Slaughter MD Work Phone: [facility] 09-08-2024 08:54-0400 Respiratory rate 16 /min Dr. Antoni Slaughter MD Work Phone: [facility] 09-08-2024 08:54-0400 Systolic blood pressure 113 mm[Hg] Dr. Antoni Slaughter MD Work Phone: [facility] 09-04-2024 13:38-0400 Body temperature 96.5 [degF] Dr. Antoni Slaughter MD Work Phone: [facility] 09-04-2024 13:38-0400 Diastolic blood pressure 83 mm[Hg] Dr. Antoni Slaughter MD Work Phone: [facility] 09-04-2024 13:38-0400 Heart rate 67 /min Dr. Antoni Slaughter MD Work Phone: [facility] 09-04-2024 13:38-0400 Respiratory rate 16 /min Dr. Antoni Slaughter MD Work Phone: [facility] 09-04-2024 13:38-0400 SaO2% (BldA) [Mass fraction] 97 % Dr. Antoni Slaughter MD Work Phone: [facility] 09-04-2024 13:38-0400 Systolic blood pressure 146 mm[Hg] Dr. Antoni Slaughter MD Work Phone: [facility] 08-29-2024 11:11-0400 Body mass index (BMI) [Ratio] 32.11 kg/m2 Vibha Flores MD Work Phone: [facility] 08-29-2024 11:11-0400 Body weight 92.99 kg Vibha Flores MD Work Phone: [facility] 08-29-2024 11:11-0400 Diastolic blood pressure 84 mm[Hg] Vibha Flores MD Work Phone: [facility] 08-29-2024 11:11-0400 Heart rate 90 /min Vibha Flores MD Work Phone: [facility] 08-29-2024 11:11-0400 Systolic blood pressure 138 mm[Hg] Vibha Flores MD Work Phone: [facility] 08-07-2024 13:52-0500 Body height 170.2 cm Pst 1 [facility] 08-07-2024 13:52-0500 Body mass index (BMI) [Ratio] 32.26 kg/m2 Pst 1 [facility] 08-07-2024 13:52-0500 Body temperature 98.2 [degF] Pst 1 [facility] 08-07-2024 13:52-0500 Body weight 93.44 kg Pst 1 [facility] 08-07-2024 13:52-0500 Diastolic blood pressure 77 mm[Hg] Pst 1 [facility] 08-07-2024 13:52-0500 Heart rate 72 /min Pst 1 [facility] 08-07-2024 13:52-0500 Respiratory rate 16 /min Pst 1 [facility] 08-07-2024 13:52-0500 SaO2% (BldA) [Mass fraction] 97 % Pst 1 [facility] 08-07-2024 13:52-0500 Systolic blood pressure 120 mm[Hg] Pst 1 [facility] 08-04-2024 08:08-0500 Body height 170.[address] Antoni Slaughter MD Work Phone: [facility] 08-04-2024 08:08-0500 Body mass index (BMI) [Ratio] 32.5 kg/m2 Dr. Antoni Slaughter MD Work Phone: [facility] 08-04-2024 08:08-0500 Body temperature 96.4 [degF] Dr. Antoni Slaughter MD Work Phone: [facility] 08-04-2024 08:08-0500 Body weight 94.[address] Antoni Slaughter MD Work Phone: [facility] 08-04-2024 08:08-0500 Diastolic blood pressure 78 mm[Hg] Dr. Antoni Slaughter MD Work Phone: [facility] 08-04-2024 08:08-0500 Heart rate 73 /min Dr. Antoni Slaughter MD Work Phone: [facility] 08-04-2024 08:08-0500 Respiratory rate 16 /min Dr. Antoni Slaughter MD Work Phone: [facility] 08-04-2024 08:08-0500 SaO2% (BldA) [Mass fraction] 98 % Dr. Antoni Slaughter MD Work Phone: [facility] 08-04-2024 08:08-0500 Systolic blood pressure 118 mm[Hg] Dr. Antoni Slaughter MD Work Phone: [facility] 08-01-2024 10:25-0500 Body height 170.2 cm Vibha Flores MD Work Phone: [facility] 08-01-2024 10:25-0500 Body mass index (BMI) [Ratio] 32.89 kg/m2 Vibha Flores MD Work Phone: [facility] 08-01-2024 10:25-0500 Body weight 95.25 kg Vibha Flores MD Work Phone: [facility] 08-01-2024 10:25-0500 Diastolic blood pressure 85 mm[Hg] Vibha Flores MD Work Phone: [facility] 08-01-2024 10:25-0500 Heart rate 71 /min Vibha Flores MD Work Phone: [facility] 08-01-2024 10:25-0500 Systolic blood pressure 132 mm[Hg] Vibha Flores MD Work Phone: [facility] 07-29-2024 10:01-0500 Body weight 94.[address] Antoni Slaughter MD Work Phone: [facility] 07-18-2024 08:37-0500 Body height 170.2 cm Vibha Flores MD Work Phone: [facility] 07-18-2024 08:37-0500 Body mass index (BMI) [Ratio] 32.87 kg/m2 Vibha Flores MD Work Phone: [facility] 07-18-2024 08:37-0500 Body weight 95.21 kg Vibha Flores MD Work Phone: [facility] 07-18-2024 08:37-0500 Diastolic blood pressure 73 mm[Hg] Vibha Flores MD Work Phone: [facility] 07-18-2024 08:37-0500 Heart rate 76 /min Vibha Flores MD Work Phone: [facility] 07-18-2024 08:37-0500 Systolic blood pressure 112 mm[Hg] Vibha Flores MD Work Phone: [facility] 07-02-2024 10:04-0500 Body mass index (BMI) [Ratio] 32.9 kg/m2 Dr. Antoni Slaughter MD Work Phone: [facility] 07-02-2024 10:04-0500 Body weight 95.[address] Antoni Slaughter MD Work Phone: [facility] 07-02-2024 10:01-0500 Body temperature 98.3 [degF] Dr. Antoni Slaugther MD Work Phone: [facility] 07-02-2024 10:01-0500 Diastolic blood pressure 79 mm[Hg] Dr. Antoni Slaughter MD Work Phone: [facility] 07-02-2024 10:01-0500 Heart rate 69 /min Dr. Antoni Slaughter MD Work Phone: [facility] 07-02-2024 10:01-0500 Respiratory rate 18 /min Dr. Antoni Slaughter MD Work Phone: [facility] 07-02-2024 10:01-0500 SaO2% (BldA) [Mass fraction] 99 % Dr. Antoni Slaughter MD Work Phone: [facility] 07-02-2024 10:01-0500 Systolic blood pressure 129 mm[Hg] Dr. Antoni Slaughter MD Work Phone: [facility] 06-26-2024 11:20-0500 Body temperature 97 [degF] Dr. Antoni Slaughter MD Work Phone: [facility] 06-26-2024 11:20-0500 Diastolic blood pressure 62 mm[Hg] Dr. Antoni Slaughter MD Work Phone: [facility] 06-26-2024 11:20-0500 Heart rate 66 /min Dr. Antoni Slaughter MD Work Phone: [facility] 06-26-2024 11:20-0500 Respiratory rate 16 /min Dr. Antoni Slaughter MD Work Phone: [facility] 06-26-2024 11:20-0500 SaO2% (BldA) [Mass fraction] 95 % Dr. Antoni Slaughter MD Work Phone: [facility] 06-26-2024 11:20-0500 Systolic blood pressure 101 mm[Hg] Dr. Antoni Slaughter MD Work Phone: [facility] 06-26-2024 09:36-0500 Body mass index (BMI) [Ratio] 33.4 kg/m2 Dr. Antoni Slaughter MD Work Phone: [facility] 06-26-2024 09:36-0500 Body weight 96.[address] Antoni Slaughter MD Work Phone: [facility] 04-30-2024 13:52-0500 Body mass index (BMI) [Ratio] 32.9 kg/m2 Dr. Antoni Slaughter MD Work Phone: [facility] 04-30-2024 13:52-0500 Body temperature 97.1 [degF] Dr. Antoni Slaughter MD Work Phone: [facility] 04-30-2024 13:52-0500 Body weight 95.[address] Antoni Slaughter MD Work Phone: [facility] 04-30-2024 13:52-0500 Diastolic blood pressure 84 mm[Hg] Dr. Antoni Slaughter MD Work Phone: [facility] 04-30-2024 13:52-0500 Heart rate 86 /min Dr. Antoni Slaughter MD Work Phone: [facility] 04-30-2024 13:52-0500 Respiratory rate 16 /min Dr. Antoni Slaughter MD Work Phone: [facility] 04-30-2024 13:52-0500 SaO2% (BldA) [Mass fraction] 95 % Dr. Antoni Slaughter MD Work Phone: [facility] 04-30-2024 13:52-0500 Systolic blood pressure 120 mm[Hg] Dr. Antoni Slaughter MD Work Phone: [facility] 08-25-2022 08:51-0400 Body height 170.[address] Antoni Slaughter Work Phone: [facility] 08-25-2022 08:51-0400 Body mass index (BMI) [Ratio] 31.9 kg/m2 Dr. Antoni Slaughter Work Phone: [facility] 08-25-2022 08:51-0400 Body temperature 97.4 [degF] Dr. Antoni Slaughter Work Phone: [facility] 08-25-2022 08:51-0400 Body weight 92.[address] Antoni Slaughter Work Phone: [facility] 08-25-2022 08:51-0400 Diastolic blood pressure 74 mm[Hg] Dr. Antoni Slaughter Work Phone: [facility] 08-25-2022 08:51-0400 Heart rate 74 /min Dr. Antoni Slaughter Work Phone: [facility] 08-25-2022 08:51-0400 Respiratory rate 18 /min Dr. Antoni Slaughter Work Phone: [facility] 08-25-2022 08:51-0400 SaO2% (BldA) [Mass fraction] 96 % Dr. Antoni Slaughter Work Phone: [facility] 08-25-2022 08:51-0400 Systolic blood pressure 134 mm[Hg] Dr. Antoni Slaughter Work Phone: [facility] 07-28-2022 07:58-0500 Body height 170.[address] Antoni Slaughter Work Phone: [facility] 07-28-2022 07:58-0500 Body mass index (BMI) [Ratio] 32.1 kg/m2 Dr. Antoni Slaughter Work Phone: [facility] 07-28-2022 07:58-0500 Body temperature 97 [degF] Dr. Antoni Slaughter Work Phone: [facility] 07-28-2022 07:58-0500 Body weight 93.[address] Antoni Slaughter Work Phone: [facility] 07-28-2022 07:58-0500 Diastolic blood pressure 100 mm[Hg] Dr. Antoni Slaughter Work Phone: [facility] 07-28-2022 07:58-0500 Heart rate 78 /min Dr. Antoni Slaughter Work Phone: [facility] 07-28-2022 07:58-0500 Respiratory rate 18 /min Dr. Antoni Slaughter Work Phone: [facility] 07-28-2022 07:58-0500 SaO2% (BldA) [Mass fraction] 98 % Dr. Antoni Slaughter Work Phone: [facility] 07-28-2022 07:58-0500 Systolic blood pressure 158 mm[Hg] Dr. Antoni Slaughter Work Phone: [facility] Encounters Encounter Date Encounter Type Care Provider Facility Start: 12-03-2024 ambulatory Antoni Kenyon ty:[facility] Start: 12-01-[address] Dayton Lewis MD -[facility] Start: 12-01-2024 End: 12-01-[address] Antoni Leach MD -[facility] Work Phone: Start: 12-01-2024 End: 12-01-[address] Antoni Slaughter MD Work Phone: [facility] [place] [facility] Work Phone: Start: 11-17-2024 End: 11-17-[address] Antoni Slaughter MD Work Phone: [facility] [place] [facility] Work Phone: Start: 11-17-2024 End: 11-17-2024 Patient encounter procedure Ceci SIMS -[facility] Work Phone: Start: 11-17-[address] Dayton Lewis MD -[facility] Start: 2024 End: [address] Antoni Slaughter MD -[facility] Work Phone: Start: 2024 End: [address] Antoni Slaughter MD Work Phone: [facility] [place] [facility] Work Phone: Start: 11-04-2024 End: 11-04-2024 Patient encounter procedure Ceci Hebert [facility] Work Phone: Start: 11-04-2024 End: 11-04-[address] Antoni Slaughter MD Work Phone: [facility] [place] [facility] Work Phone: Start: 11-04-[address] Dayton Lewis MD -[facility] Start: 10-20-2024 End: 10-20-2024 Patient encounter procedure Ceci Hebert [facility] Work Phone: Start: 10-20-2024 End: 10-20-2024 ambulatory [facility] [place] Start: 10-06-2024 End: 10-06-[address] Antoni Leach MD -[facility] Work Phone: Start: 10-06-2024 End: 10-06-2024 ambulatory [facility] [place] [place] Start: 09-29-2024 End: 09-29-2024 Patient encounter procedure Ceci Hebert [facility] Work Phone: Start: 09-29-2024 End: 09-29-2024 ambulatory [facility] Facility:[facility] Start: 09-22-2024 End: 09-22-[address] Antoni Leach MD -[facility] Work Phone: Start: 09-22-2024 End: 09-22-2024 [facility] Start: 09-17-2024 ambulatory [facility] Facili ty:[facility] Start: 09-17-2024 Non-patient / Non-visit Dr. Nuria Leigh MD -[facility] Start: 09-17-2024 End: 09-17-2024 Admission to same day surgery center Dr. Humberto Leigh MD [facility] Start: 09-17-2024 End: 09-17-[address] 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 Humberto Leigh MD -[facility] Work Phone: Start: 09-08-2024 End: 09-08-2024 ambulatory [facility] Facility:[facility] Start: 09-04-[address] Dayton Lewis MD -[facility] Start: 09-04-2024 End: 09-04-[address] 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 Start: 08-13-2024 End: 08-15-2024 Evaluation and management of inpatient VIBHA [facility] Start: 08-07-2024 End: 08-07-2024 Admission to [facility] 1 Pre Surgical Testing Start: 08-07-2024 End: 08-07-2024 Preprocedural examination done Ostomy Nurse [facility] Start: 08-07-2024 End: 08-07-2024 Patient encounter procedure Ostomy Nurse [facility] Comment on above: Other specified coun seling (Primary Dx) Start: 08-07-2024 End: 08-07-2024 ambulatory Luis F Hurtado RN [facility] Comment on above: Patient Education Pre-op exam (Primary Dx); Rectal cancer (HCC); Hyperlipidemia, unspecified hyperlipidemia type; Primary hypertension; Hypothyroidism, unspecified type; PVD (peripheral vascular disease) (HCC); PAD (peripheral artery disease) (HCC); Nicotine use Start: 08-07-2024 Encounter for other preprocedural examination VIBHA [facility] Start: 08-04-2024 End: 08-04-[address] Antoni Slaughter MD -[facility] Work Phone: Start: 08-04-2024 End: 08-04-[address] Antoni Slaughter MD Work Phone: [facility] Work Phone: Start: 08-04-2024 End: 08-04-2024 ambulatory Antoni Slaughter Facility:[facility] Start: 08-01-2024 End: 08-01-2024 Patient encounter procedure Vibha Flores MD Work Phone: [facility] SUR[facility]ERY [facility] Comment on above: Rectal cancer (HCC) (Primary Dx) Start: 08-01-2024 End: 08-01-2024 ambulatory VIBHA [facility] Start: 07-29-2024 ambulatory Antoni Slaughter Facili ty:[facility] Start: 07-18-2024 End: 07-18-2024 Office outpatient new 45 minutes Vibha Flores MD Work Phone: [facility] SURGERY DEPARTMENT Comment on above: Rectal cancer (HCC) (Primary Dx) Start: 07-18-2024 End: 07-18-2024 ambulatory [facility] Facility:[facility] Start: 07-17-2024 End: 07-17-2024 Patient encounter procedure Sofia CHANCE -[facility] Work Phone: Start: 07-17-2024 End: 07-17-2024 [facility] Start: 07-04-2024 End: 07-04-[address] Dayton Lewis MD -[facility] Work Phone: Start: 07-04-2024 End: 07-04-2024 ambulatory Atnoni Slaughter Facility:[facility] Start: 07-02-[address] Dayton Lewis MD -[facility] Start: 07-02-2024 End: 07-02-[address] Dayton Lewis MD -[facility] Work Phone: Start: 07-02-2024 End: 07-02-2024 ambulatory Sofia Cuadra Facility:[facility] Start: 06-26-2024 Non-patient / Non-visit Rivera Kirk nd DO -[facility] Start: 06-26-2024 End: 06-26-2024 Admission to same day surgery center Rivera Townsend DO -Endoscopy Work Phone: Start: 06-26-2024 End: 06-26-2024 ambulatory Rivera Townsend Facility:[facility] Start: 06-17-2024 End: 06-17-2024 [facility] Work Phone: Start: 06-17-2024 End: 06-17-2024 ambulatory Sofia Cuadra Facility:[facility] Start: 04-30-2024 End: 04-30-[address] Antoni Slaughter MD -[facility] Work Phone: Start: 04-30-2024 End: 04-30-[address] Antoni Slaughter MD [facility] Start: 04-30-2024 End: 04-30-2024 ambulatory Antoni Stevens:[facility] Start: 11-01-[address] Antoni Slaughter MD Work Phone: [facility] Start: 08-25-2022 End: 08-25-[address] Antoni Slaughter Work Phone: [facility] Work Phone: Start: 08-25-2022 End: 08-25-[address] Antoni Slaughter Work Phone: [facility] Start: 07-28-2022 End: 07-28-[address] Antoni Slaughter Work Phone: [facility] Work Phone: Start: 07-28-2022 End: 07-28-[address] Antoni Slaughter Work Phone: [facility] Start: 07-15-2021 End: 07-15-2021 ambulatory MORRO NELSON [facility] Start: 07-01-2021 End: 07-01-[address] SALMA MELGOZA [facility] Procedures Date Procedure Procedure Detail Performing Clinician Start: 12-01-[address] Consuelo Slaughter MD Work Phone: Start: 12-01-2024 Lymphocyte percent differential count Dr. Antoni Slaughter MD Work Phone: Start: 11-17-[address] Consuelo Slaughter MD Work Phone: Start: 11-04-[address] Consuelo Slaughter MD Work Phone: Start: 10-06-2024 Serum inorganic phosphate measurement Dr. Antoni Slaughter MD Work Phone: Start: 09-17-2024 Plain chest X-ray Dr. Antoni Slaughter MD Work Phone: Start: 09-17-2024 Implantation to cardiovascular system Dr. Antoni Slaughter MD Work Phone: Start: 09-17-[address] Antoni Slaughter MD Work Phone: Start: 09-04-[address] Renard Slaughter MD Work Phone: Comment on above: Nonsmokers <3.9 Smokers <5.6[employer] Electrochemiluminescence Immunoassay(ECLIA)Values obtained with different assay methods or kitscannot be used interchangeably. Results cannot beinterpreted as absolute evidence of the presence orabsence of malignant disease.Performed at: [place] [id number] Director: Osei Busch PhD, Phone: [phone] Start: 09-04-[address] Consuelo Slaughter MD Work Phone: Start: 09-04-2024 Total iron binding capacity measurement Dr. Antoni Slaughter MD Work Phone: Start: 08-07-2024 Antibody screen VIBHA FLORES Comment on above: Order Comment: Specimen Type: BLOOD SPEC IMENOrdering Facility: [facility] Address: [address] [place] [address] Performed By: #### T [id number] ####[facility] BLOOD BANKIA [id number] [place] [address] [place] Start: 08-04-2024 Measurement of renal function Dr. Sunitha Slaughter MD Work Phone: Comment on above: GFR Calc Start: 07-17-2024 CT of thorax, abdomen and pelvis with contrast Dr. Antoni Slaughter MD Work Phone: Start: 07-04-2024 MRI of pelvis with contrast Dr. Juan Slaughter MD Work Phone: Start: 07-02-[address] Renard Slaughter MD Work Phone: Comment on above: Nonsmokers <3.9 Smokers <5.6[employer] Electrochemiluminescence Immunoassay(ECLIA)Values obtained with different assay methods or kitscannot be used interchangeably. Results cannot beinterpreted as absolute evidence of the presence orabsence of malignant disease.Performed at: [place] [id number] Director: Osei Busch PhD, Phone: [phone] Start: 07-02-2024 Measurement of renal function Dr. Sunitha Slaughter MD Work Phone: Comment on above: GFR Calc Start: 06-26-[address] Antoni Slaughter MD Work Phone: Plan of Treatment Date Care Activity Detail Author Start: 2033 RSV Vaccine (1 - 1-d ose 75+ series) RSV Vaccine (1 - 1-dose 75+ series) [facility] Start: 08-16-2027 Diabetes Screening Diabetes Screenin [facility] Start: 08-07-2027 Diabetes Screening Diabetes Screenin g [facility] Start: 08-07-2025 BP Controlled (<130/80) BP Controlle d (<130/80) [facility] Start: 07-18-2025 BP Controlled (<130/80) BP Controlle d (<130/80) [facility] Start: 12-01-2024 [facility] Start: 12-01-2024 Vital signs measurements [facility] Start: 11-28-2024 End: 11-28-2024 Patient encounter procedure 11/28/2024 8:30 AM EDT Office Visit [facility] SURGERY DEPARTMENT [address] [facility] 3rd [place] [address] Vibha Flores MD [address] [place] [address] (Fax) 3 month follow up [facility] SUR[facility] DEPART[facility] Comment on above: 3 month follow up Start: 11-17-2024 [facility] Start: 11-17-2024 Vital signs measurements [facility] Start: 11-04-2024 [facility] Start: 11-04-2024 Vital signs measurements [facility] Start: 10-20-2024 Vital signs measurements [facility] Start: 10-17-2024 End: 10-17-2024 Patient encounter procedure 10/17/2024 9:00 AM EDT Office Visit [facility] SUR[facility] DE[facility] [address] [facility] [address] [place] [phone] Vibha Flores MD 1 [place] [phone] (Fax) Follow up 3 Months [facility] SURGERY DEPARTMENT Comment on above: Follow up 3 Months Start: 10-06-2024 Vital signs measurements [facility] Start: 09-22-2024 Venous catheter care management [facility] Start: 09-22-2024 Vital signs measurements [facility] Start: 09-17-2024 Anesthesia access central venous circulation ANESTH VASCULAR ACCESS [facility] Start: 09-17-2024 Insj tunneled ctr va d w/subq port age 3 yr/> INSERT TUNNELED CV CATH [facility] Start: 09-17-2024 Patient discharge [facility] Start: 09-04-2024 Patient referral [facility] Work Phone: Start: 08-29-2024 End: 08-29-2024 Patient encounter procedure 08/29/2024 11:00 AM EDT Office Visit [facility] [address] [facility] [address] [place] [phone] Vibha Flores MD 1 [place] [phone] (Fax) post op [facility] Comment on above: post op Start: 08-14-2024 End: 08-14-2024 ambulatory 08/14/2024 11:00 AM EST Visit (SP) Office [facility] [address] [place], [place] [phone] Erik Sutherland MD [address] [place], [place] [phone] New pt ref from Vibha Wood for rectal cancer [facility] Comment on above: New pt ref from Barbara Flores for rectal cancer Start: 08-13-2024 End: 08-13-2024 Admission to same day surgery center 08/13/2024 1:15 PM EST - 08/13/2024 6:00 PM EST [facility] [address] [place] [address] Vibha Flores MD 1 [place] [phone] XI ROBOTIC LAPAROSCOPIC RESECTION COLON LOW ANTERIOR W/ COLORECTAL ANASTOMOSIS/ POSSIBLE STOMA/ ERAS/ W BLOCK [facility] Comment on above: XI ROBOTIC LAPAROSCO PIC RESECTION COLON LOW ANTERIOR W/ COLORECTAL ANASTOMOSIS/ POSSIBLE STOMA/ ERAS/ W BLOCK Start: 08-13-2024 End: 08-13-2024 Laps colectomy prtl w/colopxtstmy lw anast XI ROBOTIC LAPAROSCOPIC RESECTION COLON LOW ANTERIOR W/ COLORECTAL ANASTOMOSIS Rectal cancer (HCC) 08/13/2024 1:15 PM EST [facility] Start: 08-13-2024 Subsequent hospital visit by physician 08/13/2024 1:15 PM EST Hospital Encounter [facility] [address] [place] [address] Vibha Flores MD 1 [place] [phone] Rectal cancer (HCC) [C20] [facility] Comment on above: Rectal cancer (HCC) [C20] Start: 08-07-2024 End: 08-07-2024 ambulatory 08/07/2024 1:40 PM EST PAT Pre Surgical Testing 1 [place] [phone] XI ROBOTIC LAPAROSCOPIC RESECTION COLON LOW ANTERIOR W/ COLORECTAL ANASTOMOSIS/ POSSIBLE STOMA/ ERAS/ W BLOCK Pre Surgical Testing Comment on above: XI ROBOTIC LAPAROSCO PIC RESECTION COLON LOW ANTERIOR W/ COLORECTAL ANASTOMOSIS/ POSSIBLE STOMA/ ERAS/ W BLOCK Start: 06-26-2024 Patient discharge [facility] Start: 06-11-2024 Advance Directive Discussion Advance Directive Discussion [facility] Start: 04-30-2024 Patient referral [facility] Work Phone: Start: 02-10-2024 Covid-19 Vaccine ( season) Covid-19 Vaccine ( season) [facility] Start: 11-06-2023 Screening for osteoporosis Bone Density Screening [facility] Start: 2018 RSV Vaccine (1 - Ris k 60-74 years 1-dose series) RSV Vaccine (1 - Risk 60-74 years 1-dose series) [facility] Start: 2008 Screening for malign ant neoplasm of lung Lung Cancer Screening [facility] Start: 2008 Shingrix Vaccine (1 of 2) Shingrix Vaccine (1 of 2) [facility] Start: 11-06-2003 Diabetes Screening Diabetes Screenin g [facility] Start: 11-06-2003 Lipid panel Lipid Screening [facility] Start: 11-06-2003 Screening for malign ant neoplasm of colon [facility] Start: 1998 Screening for malign ant neoplasm of breast Mammogram Screening [facility] Start: 11-06-1979 Screening for malign ant neoplasm of cervix Cervical Cancer Screening [facility] Start: 1977 Pneumococcal Vaccine : 50+ (1 of 2 - PCV) Pneumococcal Vaccine: 50+ (1 of 2 - PCV) [facility] Start: 1977 Urine microalbumin profile DTaP,Tdap,Td Vaccine (1 - Tdap) [facility] Start: 1976 Annual PCP Team Installation Coordinator rosalva Disease Visit Annual PCP Team Chronic Disease Visit [facility] Start: 1976 Anxiety Screening Anxiety Screening [facility] Start: 1976 BP Controlled (<130/80) BP Controlle d (<130/80) [facility] Start: 1976 Depression Screening Depression Scre ening [facility] Start: 1976 Hepatitis C screening Hepatitis C Sc dneys [facility] Start: 1976 HIV screening HIV Screening [facility] H&P for surgery H&P FOR SURGERY Procedures Routine Rectal cancer (HCC) Ordered: 08/01/2024 [facility] Work Phone: Comment on above: Ordered: 08/01/2024 Patient referral [facility] Work Phone: Thyroid stimulating hormone measurement [facility] Immunizations Immunization Date Immunization Notes Care Provider Fa ciliedgar 04-30-2024 Seasonal trivalent influenza vaccine, adjuvanted, preservative free Dr. Antoni Slaughter MD Work Phone: [facility] Payers Date Payer Category Payer Medicare AETNA MEDICARE A ETNA MEDICARE O [id number] 2024-Present [phone] [address] [place] [address] [facility] [id number] 2024 Medicare (Managed Care) [place] [id number] 2024 Self-pay [id number] 2023 Private Health Insurance [id number] 1960 Unknown [id number] 2.16.840.1.427924.3.579.2. 651 1960 Unknown [id number] 2.16.840.1.710029.3.579.2. 651 Unknown [id number] Unknown [facility] UMU [id number] Unknown [id number] 2.16.840.1.014523.3.579.2. 462 Unknown [id number] 2.16.840.1.357363.3.579.2. 462 Unknown [id number] 2.16.840.1.304447.3.579.2. 462 Unknown [id number] 2.16.840.1.768717.3.579.2. 462 Unknown [id number] 2.16.840.1.279273.3.579.2. 462 Unknown [id number] 2.16.840.1.423591.3.579.2. 462 Unknown [id number] 2.16.840.1.637133.3.579.2. 462 Unknown [id number] 2.16.840.1.908985.3.579.2. 462 Unknown [id number] 2.16.840.1.571236.3.579.2. 462 Unknown [id number] 2.16.840.1.328093.3.579.2. 462 Unknown [id number] 2.16.840.1.376668.3.579.2. 462 Unknown [id number] 2.16.840.1.525497.3.579.2. 462 Unknown [id number] 2.16.840.1.700185.3.579.2. 462 Unknown [id number] 2.16.840.1.011217.3.579.2. 462 Unknown [id number] 2.16.840.1.616862.3.579.2. 462 Unknown [id number] 2.16.840.1.959418.3.579.2. 462 Unknown [id number] 2.16.840.1.521612.3.579.2. 462 Unknown [id number] 2.16.840.1.880800.3.579.2. 462 Unknown [id number] 2.16.840.1.376565.3.579.2. 462 Unknown [id number] 2.16.840.1.588171.3.579.2. 462 Unknown [id number] 2.16.840.1.280799.3.579.2. 462 Unknown [id number] 2.16.840.1.438671.3.579.2. 462 Unknown [id number] 2.16.840.1.570157.3.579.2. 462 Unknown [id number] 2.16.840.1.582272.3.579.2. 462 Social History Date Type Detail Facility Start: 07-28-2022 End: 08-25-2022 Tobacco smoking status [facility] Unknown if ever smoked [facility] Start: 1960 Sex Assigned At Female W [facility] Start: 07-18-2024 End: 09-11-2024 Tobacco smoking status ALIS Smokes tobacco daily [facility] Start: 06-11-1974 History of tobacco use Cigarette Smo ker [facility] Start: 07-18-2024 End: 08-01-2024 Tobacco use and exposure User of smokeless tobacco [facility] Start: 07-18-2024 End: 08-01-2024 History of Social function [facility] Start: 07-18-2024 End: 08-01-2024 Tobacco use panel [facility] National Score (1-10 0), lower number is lower risk 72 [facility] Start: 1960 Sex assigned at Not on file C [facility] Start: 08-07-2024 Tobacco use and exposure Smokeless tobacco non-user [facility] Start: 08-07-2024 End: 08-29-2024 Alcoholic beverage intake Current drinker of alcohol (finding) [facility] Start: 08-07-2024 Tobacco Comment Currently smok ing 3/4 PPD [facility] Start: 08-06-2024 Alcohol Comment very rarely [facility] Has the [employer], or [employer] threatened to shut off services in your home in past 12Mo No [facility] (I/We) worried jeanette er (my/our) food would run out before (I/we) got money to buy more. Never true [facility] Start: 08-14-2024 End: 09-17-2024 Sex Female (finding) [facility] Medical Equipment Procedure Code Equipment Code Equipment Origin al Text Equipment Identifier Dates Insertion, vascular access port ([id number]) Vascular port/catheter [id number] FDA Start: 09-17-2024 Goals Date Patient Goal Desired Activity /State Functional Status Date Assessment Result Facility 08-15-2024 Are you deaf, or do you have serious difficulty hearing No 08/15/2024 12:22 PM Lisa Lord, CELESTE No [facility] 08-15-2024 Are you blind, or do you have serious difficulty seeing, even when wearing glasses No 08/15/2024 12:22 PM Lisa Lord, CELESTE No [facility] 08-15-2024 Do you have serious difficulty walking or climbing stairs No 08/15/2024 12:22 PM Lisa Lord, CELESTE No [facility] 08-15-2024 Do you have difficul ty dressing or bathing No 08/15/2024 12:22 PM Lisa Lord, RN No [facility] 08-15-2024 Because of a physica l, mental, or emotional condition, do you have difficulty doing errands alone such as visiting a physician's office or shopping No 08/15/2024 12:22 PM Lisa Lord, CELESTE No [facility] Mental Status Date Assessment Result Facility 09-17-2024 Cognitive function Voice/Name [facility] Work Phone: 08-15-2024 Because of a physica l, mental, or emotional condition, do you have serious difficulty concentrating, remembering, or making decisions No 08/15/2024 12:22 PM Lisa Lord, CELESTE No [facility] 06-26-2024 Cognitive function Level Of Cons ciousness Sedated [facility] Work Phone: 01-16-2025 Cognitive function Voice/Name [facility] Work Phone: Clinical Notes 04-30-2024 to 11-17-2024 Note Date & Type Note Facility 11-17-2024 Progress note [facility] 11-17-2024 Progress note Note Date/Time November 17, 2024 10:00am [facility] [place] [address] OFFICE VISIT Date of Service: 11/17/24 0903 MR#: [id number] Acct: [id number] Name: TRUDY CALLE Rep #: [id number] : 1960 From: Ceci Montanez ch, NP [employer]ACH[employer]-C Age/Sex: 64/F [place] [facility] Status: Signed HPI Subjective Date of Service 11/17/24 Chief Complaint Follow-up chronic conditions History of Present Illness 64 YOF presented with hematochezia, had colonoscopy on 06/26/2024. It showed malignant partially obstructing tumor in the rectosigmoid, 8-10 centimeters fromthe anal verge. June 26, 2024 Sigmoid mass, biopsy: Invasive moderately differentiated adenocarcinoma Negative (no loss of mismatch protein; no microsatellite instability detected). July 04, 2024: Pelvic MRI: FINDINGS: * Circumferential 2.16 cm fungating mass invading all 3 layers of the wall of the distal sigmoid colon and rectosigmoid junction located 11 cm above the anal opening, see image #13/26 series 6. There is also extension of tumor through the outer covering of the distal sigmoid colon seen on image 12/26 series 6. This is also well visualized on the postcontrast image 22/44 series 14. 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 * No pelvic lymphadenopathy is present. * No marrow edema or lytic or blastic lesions or enhancing lesions are seen in the bony structures. * Bicornuate uterus noted. Unremarkable adnexa. Normal bilateral ovaries. Normal urinary bladder. Normal visualized small intestine. Normal remaining visualized colon. There is no pelvic fluid. There is no pelvic mass lesion or lymphadenopathy. Normal osseous structures. Normal abdominal wall. IMPRESSION: 1. Circumferential 2.16 cm fungating mass invading all 3 layers of the wall of the distal sigmoid colon and rectosigmoid junction located 11 cm above the anal opening, see image #13/26 series 6. There is also extension of tumor through the outer covering of the distal sigmoid colon seen on image 12/26 series 6. This is also well visualized on the postcontrast image 22/44 series 14. 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 There is also moderate diffuse thickening and edema and hyperenhancement of the inner mucosa and muscular portion of the wall of the entire rectum down to the anus most likely due to desmoplastic reaction from the above tumor. * High position: 10 to 15 cm above the anal sphincter * T3: tumor invades through the muscularis propria into the subserosa or into non-peritonealised perirectal tissues without reaching the mesorectal fascia or adjacent organs * Consultation with surgery/oncology recommended * Correlation with PET/CT imaging also recommended. * A CT of abdomen and pelvis with contrast can be obtained to evaluate the remaining structures for possible distal metastasis or involvement. PRIMARY TUMOR STAGING (T) Strictly speaking TNM staging, such as the [place] Joint Committee on Cancer (AJCC) 8th edition, does not subclassify T3. However, this subclassification does have the treatment and prognostic significance 7,8; tumors with a stage T3b or less confer a 5-year cancer-specific survival rate of 85%, whereas tumors with a stage T3c or greater have a 54% survival rate. * Tx: primary tumor cannot be assessed * T0: no evidence of primary tumor * Tis: carcinoma in situ: intraepithelial or invasion of lamina propria * T1: tumor invades submucosa * T2: tumor invades muscularis propria * MRI does not yet have the resolution capable of enabling differentiation of T1 and T2 lesions * T3: tumor invades through the muscularis propria into the subserosa or into non-peritonealised perirectal tissues without reaching the mesorectal fascia or adjacent organs * T4: tumor invades directly into other organs or structures and/or perforates visceral peritoneum Tumor location: * High position: 10 to 15 cm above the anal sphincter * Mid position: 5 to 10 cm above the anal sphincter * Low position: 0 to 5 cm above the anal sphincter Layers of the rectum/rectosigmoid colon: * Submucosa * Muscularis propria * Mucosal rectum * Mesorectal fascia Peritoneal space Adjacent and distal organs July 17, 2024 CT chest abdomen and pelvis: IMPRESSION: 1. Constipation. Apparent thickening of the sigmoid colon could be secondary to underdistention or mass. Please refer to recent colonoscopy for further detail. 2. Hepatomegaly with fatty infiltration. 3. Umbilical hernia containing fat. 4. No thoracic, abdominal or pelvic lymphadenopathy. No suspicious pulmonary nodules or osseous lesions. July 2024 was evaluated by colorectal surgery at [facility] Dr. Elizabeth who felt that the patient's cancer is more anatomically located in the sigmoid rather than the rectum. August 13, 2024 patient underwent robotic assisted low anterior resection: Pathology: Rectosigmoid, moderately differentiated adenocarcinoma invading through the muscularis propria into the pericolonic perirectal tissue, 3 out of 12 lymph nodes positive for carcinoma, all margins negative for carcinoma, pathologic T3 N1b. Treatment summary and response: August 13, 2024 robotic assisted low anterior resection. Adjuvant modified FOLFOX September 22, 2024- (experienced severe infusion reaction during cycle 2 after oxaliplatin, thus chinik omitted with cycle 3 and subsequent) Interval History The patient is presenting to clinic today for an evaluation anticipating she will receive cycle 5 FOLFOX. Denies any concerns r/t today's visit. Concerns today include rash on bilat forearms. Describes as improved. Now nonpruritic, using Eucerin BID. C/o fatigue, ongoing. Able to perform self care ADLs without difficulty. Appetite good, PO fluid intake estimated at 1-1.5 L, mostly water and gatorade. LBM earlier this am, rarely requires Miralax. Specifically denies fever/chills, sweats, edith sores, dizziness, headache, CP, palpitations, cough, SOB, abd pain, N/V, constipation, diarrhea, swelling of herextremities, numbness/tingling. [facility] Medical History Actinic keratosis Encounter for chemotherapy management CINV (chemotherapy-induced nausea and vomiting) Encounter for education Regional lymph node metastasis present Wears glasses Smoker History of echocardiogram Cardiology follow-up encounter Wears dentures Blood in stool Chronic constipation Hyperlipidemia Health care maintenance Hypothyroidism Thyroid disease Hypertension Surgical History Hx of colonoscopy S/P colectomy History of tonsillectomy (~1964) Family History Father Heart disease Mother Breast cancer Heart disease Social History Smoking Status: Current every day smoker tobacco type: cigarettes alcohol intake: current alcohol intake frequency: holidays/special occasions only substance use type: does not use what type of physical activity do you participate in: walking and other details: work frequency: 5-6 times per week ROS ROS Narrative Negative except as documented in the interval HPI Intake Vital Signs 11/04/24 09:46 11/05/24 09:13 11/17/24 09:04 11/17/24 09:07 Height 5 ft 7 in 5 ft 7 in 5 ft 7 in 5 ft 7 in Weight: 209 lb 4 oz 210 lb BMI 32.8 32.8 BP 138/80 H 123/76 H Blood Pressure Location Rt brachial Lt brachial Position Sitting Sitting Respiration 16 18 Pulse 90 73 Pulse Source Monitor Monitor Temp 97.4 F L 98.3 F Temperature Source Temporal Artery Pulse Oximetry (%) 98 98 Oxygen Delivery Method room air room air Intake Is patient in pain?: No Allergies oxaliplatin Adverse Reaction (Severe, Verified 11/17/24 09:06) Chest tightness Medications ?Medication ?Instructions ?Recorded ?Confirmed ?Type clopidogrel 75 mg tablet 75 mg PO DAILY #90 tabs 10/1011/17/24 Rx hydrochlorothiazide 25 mg tablet 25 mg PO QAM #90 tabs 11/01/23 11/17/24 Rx losartan 100 mg tablet 100 mg PO DAILY #90 tabs 11/17/24 Rx atorvastatin 40 mg tablet 40 mg PO DAILY #90 tabs 07/1311/17/24 Rx potassium iodide 65 mg tablet 130 mg PO QDAY PRN pain 09/08/24 11/17/24 History lidocaine-prilocaine 2.5 %-2.5 % 1 applic topical ONCE PRN port 09/09/24 11/17/24 Rx topical cream access 30 days #30 grams ondansetron 8 mg disintegrating 8 mg PO Q8H PRN nausea and 09/09/24 11/17/24 Rx tablet vomiting #30 tabs prochlorperazine maleate 10 mg 10 mg PO Q6H PRN nausea and 09/09/24 11/17/24 Rx tablet vomiting #30 tabs carvedilol 6.25 mg tablet 6.25 mg PO DAILY #90 tabs 11/17/24 Rx levothyroxine 150 mcg tablet 150 mcg PO DAILY #120 tab s 11/05/24 11/17/24 Rx Have you fallen in the past year?: No Central Venous Access Central Venous Access: Yes Port/PICC: Port Laboratory Tests 11/17/24 08:48 WBC 4.3 L Hgb 10.0 L Hct 29.8 L Plt Count 156 Absolute Neuts (auto) 2.3 Sodium 141 Potassium 3.8 Chloride 107 Carbon Dioxide 21.9 Anion Gap 12 BUN 19 Creatinine 0.87 Glucose 102 H Calcium 9.0 Magnesium 2.0 Total Bilirubin 0.46 AST 18 ALT 16 Alkaline Phosphatase 118 H Albumin 3.8 Exam Physical Exam Narrative ECOG 0-1 Const alert, oriented x3 and no apparent distress General Appearance: comfortable Nutritional Appearance: obese HEENT Face and Sinus: normal facial exam Eyes General Eye: normal appearance of both eyes Neck no lymphadenopathy and no JVD Chest Chest: vascular access Resp clear to auscultation bilaterally Cardio regular rate and regular rhythm Jugular Venous Distention: Negative for JVD GI soft to palpation, non-tender and non-distended; Negative for hepatosplenomegaly Inspection: scar Back/Spine no thoracic nor lumbar tenderness Extremity no clubbing, cyanosis or edema Skin Skin Narrative: Bilat forearms with multiple rough, scaly raised patches, mildly erythematous. Skin dry Neuro oriented x3, CN's II-XII intact bilaterally, moves all extremities and no focal motor deficits Speech: speech normal Gait (Neuro): normal gait Psych mental status grossly normal Coding Level of Care Code Off vis,est,level 4 Exam Problem Focused Diagnoses Colorectal cancer C19 Regional lymph node metastasis present C77.9 Encounter for chemotherapy management Z51.11 Actinic keratosis L57.0 Assessment and Plan Assessment and Plan (1) Colorectal cancer: Status: Chronic (2) Regional lymph node metastasis present: Status: Acute (3) Encounter for chemotherapy management: Status: Acute (4) Actinic keratosis: Status: Acute Plan 64-year-old female with stage III (T3, N1, 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 Patient is status post low anterior resection August [address] Elizabeth at [facility]. Patient is a low risk stage III disease. Started systemic adjuvant chemotherapy with modified FOLFOX September 22, 2024, tolerated with no grade 3 or 4 toxicities. Chronic comorbid conditions: Smoker, hypertension, dyslipidemia, hypothyroidism on replacement. Recommendations: Based on NCCN guidelines and up-to-date review of treatment of low risk stage III colon cancer status post resection: 1. Continue systemic adjuvant chemotherapy with FOLFOX 3 months due to severe reaction after oxaliplatin infusion cycle 2, oxaliplatin to be discontinued withcycle 3 and subsequent cycles. Labs reviewed patient, CBC values are several prior treatment. She is otherwisenot endorsing signs or symptoms of toxicity contraindicating chemotherapy will proceed with cycle 5 today. 2. CEA normalized. However being a smoker may cause some persistent mild elevation. 3. Moderate anemia with no evidence for residual iron deficiency. 4. Actinic keratosis- involving bilat forearms. May be related to infusional 5FU. Improving, continue moisturizer and otc hydrocortisone if becomes pruritic. Consider referral to derm after completion of therapy for annual skin cancer screening. Return to office 12/01/2024 for? Cycle 6 5-FU/leucovorin. 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 It showed malignant partially obstructing tumor in the rectosigmoid, 8-10 centimeters fromthe anal verge. June 26, 2024 Sigmoid mass, biopsy: Invasive moderately differentiated adenocarcinoma Negative (no loss of mismatch protein; no microsatellite instability detected). July 04, 2024: Pelvic MRI: FINDINGS: * Circumferential 2.16 cm fungating mass invading all 3 layers of the wall of the distal sigmoid colon and rectosigmoid junction located 11 cm above the anal opening, see image #13/26 series 6. There is also extension of tumor through the outer covering of the distal sigmoid colon seen on image 12/26 series 6. This is also well visualized on the postcontrast image 22/44 series 14. 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 * No pelvic lymphadenopathy is present. * No marrow edema or lytic or blastic lesions or enhancing lesions are seen in the bony structures. * Bicornuate uterus noted. Unremarkable adnexa. Normal bilateral ovaries. Normal urinary bladder. Normal visualized small intestine. Normal remaining visualized colon. There is no pelvic fluid. There is no pelvic mass lesion or lymphadenopathy. Normal osseous structures. Normal abdominal wall. IMPRESSION: 1. Circumferential 2.16 cm fungating mass invading all 3 layers of the wall of the distal sigmoid colon and rectosigmoid junction located 11 cm above the anal opening, see image #13/26 series 6. There is also extension of tumor through the outer covering of the distal sigmoid colon seen on image 12/26 series 6. This is also well visualized on the postcontrast image / series 14. 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 There is also moderate diffuse thickening and edema and hyperenhancement of the inner mucosa and muscular portion of the wall of the entire rectum down to the anus most likely due to desmoplastic reaction from the above tumor. * High position: 10 to 15 cm above the anal sphincter * T3: tumor invades through the muscularis propria into the subserosa or into non-peritonealised perirectal tissues without reaching the mesorectal fascia or adjacent organs * Consultation with surgery/oncology recommended * Correlation with PET/CT imaging also recommended. * A CT of abdomen and pelvis with contrast can be obtained to evaluate the remaining structures for possible distal metastasis or involvement. PRIMARY TUMOR STAGING (T) Strictly speaking TNM staging, such as the [place] Joint Committee on Cancer (AJCC) 8th edition, does not subclassify T3. However, this subclassification does have the treatment and prognostic significance 7,8; tumors with a stage T3b or less confer a 5-year cancer-specific survival rate of 85%, whereas tumors with a stage T3c or greater have a 54% survival rate. * Tx: primary tumor cannot be assessed * T0: no evidence of primary tumor * Tis: carcinoma in situ: intraepithelial or invasion of lamina propria * T1: tumor invades submucosa * T2: tumor invades muscularis propria * MRI does not yet have the resolution capable of enabling differentiation of T1 and T2 lesions * T3: tumor invades through the muscularis propria into the subserosa or into non-peritonealised perirectal tissues without reaching the mesorectal fascia or adjacent organs * T4: tumor invades directly into other organs or structures and/or perforates visceral peritoneum Tumor location: * High position: 10 to 15 cm above the anal sphincter * Mid position: 5 to 10 cm above the anal sphincter * Low position: 0 to 5 cm above the anal sphincter Layers of the rectum/rectosigmoid colon: * Submucosa * Muscularis propria * Mucosal rectum * Mesorectal fascia Peritoneal space Adjacent and distal organs July 17, 2024 CT chest abdomen and pelvis: IMPRESSION: 1. Constipation. Apparent thickening of the sigmoid colon could be secondary to underdistention or mass. Please refer to recent colonoscopy for further detail. 2. Hepatomegaly with fatty infiltration. 3. Umbilical hernia containing fat. 4. No thoracic, abdominal or pelvic lymphadenopathy. No suspicious pulmonary nodules or osseous lesions. July 2024 was evaluated by colorectal surgery at [facility] Dr. Holden felt that the patient's cancer is more anatomically located in the sigmoid rather than the rectum. August 13, 2024 patient underwent robotic assisted low anterior resection: Pathology: Rectosigmoid, moderately differentiated adenocarcinoma invading through the muscularis propria intothe pericolonic perirectal tissue, 3 out of 12 lymph nodes positive for carcinoma, all margins negative for carcinoma, pathologic T3 N1b. Treatment summary and response: August 13, 2024 robotic assisted low anterior resection. Adjuvant modified FOLFOX September 22, 2024- (experienced severe infusion reaction during cycle 2 afteroxaliplatin, thus chinik omitted with cycle 3 and subsequent) Interval History The patient is presenting to clinic today for an evaluation anticipating she will receive cycle 4 FOLFOX. Denies any concerns r/t today's visit. Concerns today include rash on bilat forearms. Noted after infusion 2 weeks ago. Areas are slightlyraised and minimally pruritic. Points to small scabbed lesions on right side of neck, between eyes,right forearm and left forearm present on exam 10/20/24 and reports these are healing. C/o fatigue, ongong. Able to perform self care ADLs without difficulty. Appetite good, PO fluid intake estimated at 1-1.5 L, mostly water and gatorade. LBM earlier this am, rarely requires Miralax. [facility] Medical History (Updated 11/04/24 @ 10:24 by Ceci Hebert MIXING MACHINE TENDER CORK GASKET, MIXING MACHINE TENDER CORK GASKET-C) Actinic keratosis Encounter for chemotherapy management CINV (chemotherapy-induced nausea and vomiting) Encounter for education Regional lymph node metastasis present Wears glasses Smoker History of echocardiogram Cardiology follow-up encounter Wears dentures Blood in stool Chronic constipation Hyperlipidemia Health care maintenance Hypothyroidism Thyroid disease Hypertension Surgical History Hx of colonoscopy S/P colectomy History of tonsillectomy (~1964) Family History Father Heart disease Mother Breast cancer Heart disease Social History Smoking Status: Current every day smoker tobacco type: cigarettes alcohol intake: current alcohol intake frequency: holidays/special occasions only substance use type: does not use what type of physical activity do you participate in: walking and other details: work frequency: 5-6 times per week Intake Vital Signs 10/06/24 09:33 10/20/24 09:32 11/04/24 09:46 Height 5 ft 7 in 5 ft 7 in 5 ft 7 in Weight: 206 lb 207 lb 8 oz BMI 32.2 32.5 BP 113/72 119/76 Blood Pressure Location Rt brachial Lt brachial Position Sitting Sitting Respiration 18 18 Pulse 70 62 Pulse Source Monitor Monitor Temp 98.3 F 98.6 F Temperature Source Temporal Artery Temporal Artery Pulse Oximetry (%) 99 99 Oxygen Delivery Method room air room air Intake Is patient in pain?: No Allergies oxaliplatin Adverse Reaction (Severe, Verified 11/04/24 09:49) Chest tightness Medications ?Medication ?Instructions ?Recorded ?Confirmed ?Type clopidogrel 75 mg tablet 75 mg PO DAILY #90 tabs 10/1011/04/24 Rx hydrochlorothiazide 25 mg tablet 25 mg PO QAM #90 tabs 11/01/23 11/04/24 Rx losartan 100 mg tablet 100 mg PO DAILY #90 tabs 11/04/24 Rx atorvastatin 40 mg tablet 40 mg PO DAILY #90 tabs 07/1311/04/24 Rx levothyroxine 150 mcg tablet 150 mcg PO DAILY #120 tab s 08/04/24 11/04/24 Rx potassium iodide 65 mg tablet 130 mg PO QDAY PRN pain 09/08/24 11/04/24 History lidocaine-prilocaine 2.5 %-2.5 % 1 applic topical ONCE PRN port 09/09/24 11/04/24 Rx topical cream access 30 days #30 grams ondansetron 8 mg disintegrating 8 mg PO Q8H PRN nausea and 09/09/24 11/04/24 Rx tablet vomiting #30 tabs prochlorperazine maleate 10 mg 10 mg PO Q6H PRN nausea and 09/09/24 11/04/24 Rx tablet vomiting #30 tabs carvedilol 6.25 mg tablet 6.25 mg PO DAILY #90 tabs 11/04/24 Rx Have you fallen in the past year?: No Central Venous Access Central Venous Access: Yes Port/PICC: Port (right chest) Laboratory Tests 11/04/24 08:55 WBC 4.2 L Hgb 10.5 L Hct 32.7 L Plt Count 121 L Absolute Neuts (auto) 1.9 L Sodium 141 Potassium 3.6 Chloride 107 BUN 20 H Creatinine 0.90 Glucose 152 H Calcium 9.1 Magnesium 2.1 Total Bilirubin 0.37 AST 16 ALT 15 Alkaline Phosphatase 108 H Albumin 3.9 Exam Physical Exam Narrative ECOG 0-1 Const alert, oriented x3 and no apparent distress General Appearance: comfortable Nutritional Appearance: obese HEENT Face and Sinus: normal facial exam Eyes General Eye: normal appearance of both eyes Neck no lymphadenopathy and no JVD Chest Chest: vascular access Resp clear to auscultation bilaterally Cardio regular rate and regular rhythm Jugular Venous Distention: Negative for JVD GI soft to palpation, non-tender and non-distended; Negative for hepatosplenomegaly Inspection: scar Back/Spine no thoracic nor lumbar tenderness Extremity no clubbing, cyanosis or edema Skin Skin Narrative: Bilat forearms with multiple rough, scaly raised patches, mildly erythematous. Skin dry Neuro oriented x3, CN's II-XII intact bilaterally, moves all extremities and no focal motor deficits Speech: speech normal Gait (Neuro): normal gait Psych mental status grossly normal Coding Level of Care Code Off vis,est,level 4 Exam Problem Focused Diagnoses Colorectal cancer C19 Regional lymph node metastasis present C77.9 Encounter for chemotherapy management Z51.11 Actinic keratosis L57.0 Assessment and Plan Assessment and Plan (1) Colorectal cancer: Status: Acute (2) Regional lymph node metastasis present: Status: Acute (3) Encounter for chemotherapy management: Status: Acute (4) Actinic keratosis: Status: Acute Plan 63-year-old female with stage III (T3, N1, 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 Patient is status post low anterior resection August [address] Elizabeth at [facility]. Patient is a low risk stage III disease. Started systemic adjuvant chemotherapy with modified FOLFOX September 22, 2024, tolerated with no grade3 or 4 toxicities. Chronic comorbid conditions: Smoker, hypertension, dyslipidemia, hypothyroidism on replacement. Recommendations: Based on NCCN guidelines and up-to-date review of treatment of low risk stage III colon cancer status post resection: 1. Continue systemic adjuvant chemotherapy with FOLFOX 3 months due to severe reaction after oxaliplatin infusion cycle 2, oxaliplatin to be discontinued withcycle 3 and subsequent cycles. Labs reviewed patient, CBC values are several prior treatment. She is otherwisenot endorsing signs or symptoms of toxicity contraindicating chemotherapy will proceed with cycle 4 today. 2. CEA normalized. However being a smoker may cause some persistent mild elevation. 3. Moderate anemia with no evidence for residual iron deficiency. 4. Actinic keratosis- involving bilat forearms. May be related to infusional 5FU. Advised to use moisturizer and otc hydrocortisone if pruritic. Consider referral to derm after completion of therapy for annual skin cancer screening. Return to office 11/17/2024 for? Cycle 5 5-FU/leucovorin. Clinical Quality Measures Falls Risk Screening/Assistive Devices Have you fallen in the past year?: No 11/04/24 1024 h MIXING MACHINE TENDER CORK GASKET MIXING MACHINE TENDER CORK GASKET-C> Date _ Ceci Hebert MIXING MACHINE TENDER CORK GASKET MIXING MACHINE TENDER CORK GASKET-C Cosigner Signature: Date (if applicable) CC: ~ [facility]05-27-2025 Progress note Author Ceci Hebert [facility] Services Note Date/Time November 04, 2024 10:24 am [facility] [place] [address] [place] [address] OFFICE VISIT Date of Service: 11/04/24 0943 MR#: [id number] Acct: [id number] Name: ALVATRUDY Rep #: [id number] : 1960 From: Ceci Noela MIXING MACHINE TENDER CORK GASKET MIXING MACHINE TENDER CORK GASKET-C Age/Sex: 63/F Location: [facility] Status: Signed HPI Subjective Date of Service 11/04/24 Chief Complaint Colon cancer on treatment History of Present Illness 63 YOF presented with hematochezia, had colonoscopy on 06/26/2024. It showed malignant partially obstructing tumor in the rectosigmoid, 8-10 centimeters fromthe anal verge. June 26, 2024 Sigmoid mass, biopsy: Invasive moderately differentiated adenocarcinoma Negative (no loss of mismatch protein; no microsatellite instability detected). July 04, 2024: Pelvic MRI: FINDINGS: * Circumferential 2.16 cm fungating mass invading all 3 layers of the wall of the distal sigmoid colon and rectosigmoid junction located 11 cm above the anal opening, see image #13/26 series 6. There is also extension of tumor through the outer covering of the distal sigmoid colon seen on image 12/ series 6. This is also well visualized on the postcontrast image 22/44 series 14. 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 * No pelvic lymphadenopathy is present. * No marrow edema or lytic or blastic lesions or enhancing lesions are seen in the bony structures. * Bicornuate uterus noted. Unremarkable adnexa. Normal bilateral ovaries. Normal urinary bladder. Normal visualized small intestine. Normal remaining visualized colon. There is no pelvic fluid. There is no pelvic mass lesion or lymphadenopathy. Normal osseous structures. Normal abdominal wall. IMPRESSION: 1. Circumferential 2.16 cm fungating mass invading all 3 layers of the wall of the distal sigmoid colon and rectosigmoid junction located 11 cm above the anal opening, see image #13/26 series 6. There is also extension of tumor through the outer covering of the distal sigmoid colon seen on image 12/26 series 6. This is also well visualized on the postcontrast image 22/44 series 14. 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 There is also moderate diffuse thickening and edema and hyperenhancement of the inner mucosa and muscular portion of the wall of the entire rectum down to the anus most likely due to desmoplastic reaction from the above tumor. * High position: 10 to 15 cm above the anal sphincter * T3: tumor invades through the muscularis propria into the subserosa or into non-peritonealised perirectal tissues without reaching the mesorectal fascia or adjacent organs * Consultation with surgery/oncology recommended * Correlation with PET/CT imaging also recommended. * A CT of abdomen and pelvis with contrast can be obtained to evaluate the remaining structures for possible distal metastasis or involvement. PRIMARY TUMOR STAGING (T) Strictly speaking TNM staging, such as the [place] Joint Committee on Cancer (AJCC) 8th edition, does not subclassify T3. However, this subclassification does have the treatment and prognostic significance 7,8; tumors with a stage T3b or less confer a 5-year cancer-specific survival rate of 85%, whereas tumors with a stage T3c or greater have a 54% survival rate. * Tx: primary tumor cannot be assessed * T0: no evidence of primary tumor * Tis: carcinoma in situ: intraepithelial or invasion of lamina propria * T1: tumor invades submucosa * T2: tumor invades muscularis propria * MRI does not yet have the resolution capable of enabling differentiation of T1 and T2 lesions * T3: tumor invades through the muscularis propria into the subserosa or into non-peritonealised perirectal tissues without reaching the mesorectal fascia or adjacent organs * T4: tumor invades directly into other organs or structures and/or perforates visceral peritoneum Tumor location: * High position: 10 to 15 cm above the anal sphincter * Mid position: 5 to 10 cm above the anal sphincter * Low position: 0 to 5 cm above the anal sphincter Layers of the rectum/rectosigmoid colon: * Submucosa * Muscularis propria * Mucosal rectum * Mesorectal fascia Peritoneal space Adjacent and distal organs July 17, 2024 CT chest abdomen and pelvis: IMPRESSION: 1. Constipation. Apparent thickening of the sigmoid colon could be secondary to underdistention or mass. Please refer to recent colonoscopy for further detail. 2. Hepatomegaly with fatty infiltration. 3. Umbilical hernia containing fat. 4. No thoracic, abdominal or pelvic lymphadenopathy. No suspicious pulmonary nodules or osseous lesions. July 2024 was evaluated by colorectal surgery at [facility] Dr. Elizabeth who felt that the patient's cancer is more anatomically located in the sigmoid rather than the rectum. August 13, 2024 patient underwent robotic assisted low anterior resection: Pathology: Rectosigmoid, moderately differentiated adenocarcinoma invading through the muscularis propria into the pericolonic perirectal tissue, 3 out of 12 lymph nodes positive for carcinoma, all margins negative for carcinoma, pathologic T3 N1b. Treatment summary and response: August 13, 2024 robotic assisted low anterior resection. Adjuvant modified FOLFOX September 22, 2024- (experienced severe infusion reaction during cycle 2 after oxaliplatin, thus chinik omitted with cycle 3 and subsequent) Interval History The patient is presenting to clinic today for an evaluation anticipating she will receive cycle 4 FOLFOX. Denies any concerns r/t today's visit. Concerns today include rash on bilat forearms. Noted after infusion 2 weeks ago. Areas are slightly raised and minimally pruritic. Points to small scabbed lesions on right side of neck, between eyes, right forearm and left forearm present on exam 10/20/24 and reports these are healing. C/o fatigue, ongong. Able to perform self care ADLs without difficulty. Appetite good, PO fluid intake estimated at 1-1.5 L, mostly water and gatorade. LBM earlier this am, rarely requires Miralax. [facility] Medical History (Updated 11/04/24 @ 10:24 by Ceci Hebert MIXING MACHINE TENDER CORK GASKET, MIXING MACHINE TENDER CORK GASKET-C) Actinic keratosis Encounter for chemotherapy management CINV (chemotherapy-induced nausea and vomiting) Encounter for education Regional lymph node metastasis present Wears glasses Smoker History of echocardiogram Cardiology follow-up encounter Wears dentures Blood in stool Chronic constipation Hyperlipidemia Health care maintenance Hypothyroidism Thyroid disease Hypertension Surgical History Hx of colonoscopy S/P colectomy History of tonsillectomy (~1964) Family History Father Heart disease Mother Breast cancer Heart disease Social History Smoking Status: Current every day smoker tobacco type: cigarettes alcohol intake: current alcohol intake frequency: holidays/special occasions only substance use type: does not use what type of physical activity do you participate in: walking and other details: work frequency: 5-6 times per week Intake Vital Signs 10/06/24 09:33 10/20/24 09:32 11/04/24 09:46 Height 5 ft 7 in 5 ft 7 in 5 ft 7 in Weight: 206 lb 207 lb 8 oz BMI 32.2 32.5 BP 113/72 119/76 Blood Pressure Location Rt brachial Lt brachial Position Sitting Sitting Respiration 18 18 Pulse 70 62 Pulse Source Monitor Monitor Temp 98.3 F 98.6 F Temperature Source Temporal Artery Temporal Artery Pulse Oximetry (%) 99 99 Oxygen Delivery Method room air room air Intake Is patient in pain?: No Allergies oxaliplatin Adverse Reaction (Severe, Verified 11/04/24 09:49) Chest tightness Medications ?Medication ?Instructions ?Recorded ?Confirmed ?Type clopidogrel 75 mg tablet 75 mg PO DAILY #90 tabs 10/1011/04/24 Rx hydrochlorothiazide 25 mg tablet 25 mg PO QAM #90 tabs 11/01/23 11/04/24 Rx losartan 100 mg tablet 100 mg PO DAILY #90 tabs 11/04/24 Rx atorvastatin 40 mg tablet 40 mg PO DAILY #90 tabs 07/1311/04/24 Rx levothyroxine 150 mcg tablet 150 mcg PO DAILY #120 tab s 08/04/24 11/04/24 Rx potassium iodide 65 mg tablet 130 mg PO QDAY PRN pain 09/08/24 11/04/24 History lidocaine-prilocaine 2.5 %-2.5 % 1 applic topical ONCE PRN port 09/09/24 11/04/24 Rx topical cream access 30 days #30 grams ondansetron 8 mg disintegrating 8 mg PO Q8H PRN nausea and 09/09/24 11/04/24 Rx tablet vomiting #30 tabs prochlorperazine maleate 10 mg 10 mg PO Q6H PRN nausea and 09/09/24 11/04/24 Rx tablet vomiting #30 tabs carvedilol 6.25 mg tablet 6.25 mg PO DAILY #90 tabs 11/04/24 Rx Have you fallen in the past year?: No Central Venous Access Central Venous Access: Yes Port/PICC: Port (right chest) Laboratory Tests 11/04/24 08:55 WBC 4.2 L Hgb 10.5 L Hct 32.7 L Plt Count 121 L Absolute Neuts (auto) 1.9 L Sodium 141 Potassium 3.6 Chloride 107 BUN 20 H Creatinine 0.90 Glucose 152 H Calcium 9.1 Magnesium 2.1 Total Bilirubin 0.37 AST 16 ALT 15 Alkaline Phosphatase 108 H Albumin 3.9 Exam Physical Exam Narrative ECOG 0-1 Const alert, oriented x3 and no apparent distress General Appearance: comfortable Nutritional Appearance: obese HEENT Face and Sinus: normal facial exam Eyes General Eye: normal appearance of both eyes Neck no lymphadenopathy and no JVD Chest Chest: vascular access Resp clear to auscultation bilaterally Cardio regular rate and regular rhythm Jugular Venous Distention: Negative for JVD GI soft to palpation, non-tender and non-distended; Negative for hepatosplenomegaly Inspection: scar Back/Spine no thoracic nor lumbar tenderness Extremity no clubbing, cyanosis or edema Skin Skin Narrative: Bilat forearms with multiple rough, scaly raised patches, mildly erythematous. Skin dry Neuro oriented x3, CN's II-XII intact bilaterally, moves all extremities and no focal motor deficits Speech: speech normal Gait (Neuro): normal gait Psych mental status grossly normal Coding Level of Care Code Off vis,est,level 4 Exam Problem Focused Diagnoses Colorectal cancer C19 Regional lymph node metastasis present C77.9 Encounter for chemotherapy management Z51.11 Actinic keratosis L57.0 Assessment and Plan Assessment and Plan (1) Colorectal cancer: Status: Acute (2) Regional lymph node metastasis present: Status: Acute (3) Encounter for chemotherapy management: Status: Acute (4) Actinic keratosis: Status: Acute Plan 63-year-old female with stage III (T3, N1, 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 Patient is status post low anterior resection August [address] Elizabeth at [facility]. Patient is a low risk stage III disease. Started systemic adjuvant chemotherapy with modified FOLFOX September 22, 2024, tolerated with no grade 3 or 4 toxicities. Chronic comorbid conditions: Smoker, hypertension, dyslipidemia, hypothyroidism on replacement. Recommendations: Based on NCCN guidelines and up-to-date review of treatment of low risk stage III colon cancer status post resection: 1. Continue systemic adjuvant chemotherapy with FOLFOX 3 months due to severe reaction after oxaliplatin infusion cycle 2, oxaliplatin to be discontinued withcycle 3 and subsequent cycles. Labs reviewed patient, CBC values are several prior treatment. She is otherwisenot endorsing signs or symptoms of toxicity contraindicating chemotherapy will proceed with cycle 4 today. 2. CEA normalized. However being a smoker may cause some persistent mild elevation. 3. Moderate anemia with no evidence for residual iron deficiency. 4. Actinic keratosis- involving bilat forearms. May be related to infusional 5FU. Advised to use moisturizer and otc hydrocortisone if pruritic. Consider referral to derm after completion of therapy for annual skin cancer screening. Return to office 11/17/2024 for? Cycle 5 5-FU/leucovorin. Clinical Quality Measures Falls Risk Screening/Assistive Devices Have you fallen in the past year?: No 11/04/24 1024 <Electronically signed by Ceci SIMS> Date _ Ceci SIMS Cosigner Signature: Date (if applicable) CC: ~ [facility] [employer] Work Phone: 1(543) 944-277604-09-2025 Radiology Diagnostic study note [facility] Imaging Services [address] [place] [id number] CXR for Line Placement MR#: [id number] Acct: [id number] Name: TRUDY CALLE Rep #: [id number] : 1960 F 63 From: Yvette Taveras MD PCP: Dr. Antoni Slaughter MD Status: R [facility] Study:CXR for Line Placement Date of Exam: 09/17/24 Exam# [id number] Ordering Dr: Humberto Riley MD EXAM: AP UPRIGHT PORTABLE CHEST CLINICAL HISTORY: Checking for line placement. COMPARISON: CT chest dated 07/17/2024. TECHNIQUE: Single frontal portable projection of the chest. FINDINGS: Lungs: Lungs clear of pneumonia and congestion. An area of discoid atelectasis,left upper lobe. Pleura: No pleural effusions, thickening, or pneumothorax. Heart: Normal in size and configuration. Mediastinum/Ingrid: Unremarkable. Great vessels: Aorta is atherosclerotic and tortuous. Bones/soft tissues: Unremarkable. A right Port-A-Cath is noted. RAD/CXR for Line Placement IMPRESSION: A right-sided Port-A-Cath. No active cardiopulmonary disease. Reading Location: [place] [address] CC: Dr. Humberto Leigh MD; Dr. Antoni Slaughter MD ~ Installation Coordinator: Signed [facility]04-09-2025 Consult note Author Kolton alex [facility] Note Date/Time September 17, 2024 7:57 am [facility] Medical Records Department [address] [place] [address] Pre-Anesthesia Evaluation 09/17/24 0757 MR#: [id number] Acct: [id number] Name: TRUDY CALLE Rep #:[id number] : 1960 63 From: Kolton Ness MD PCP: Dr. Antoni Slaughter MD Status:R EG [facility] Y Race: C Location: [place] [address] ASA Classification* ASA Classification ASA Classification: 2 Assessment & Plan Anesthesia* Anesthesia Assessment Anesthesia Assessment: Discussed sedation and/or anesthesia options, risks, benefits, and alternatives with patient/parents/legal guardian/POA. Questions invited. The patient/parents/legal guardian/POA seems to understand and agrees to proceedwith anesthesia plan. Reviewed the physical assessment, medical history, allergy history and patient home medications list prior to surgery/procedure/anesthetic and documented any changes. Performed airway and anesthesia risk assessments. Anesthesia Type Anesthesia Type: MAC Anesthesia Focused Assessment* Temperature: 98.2 F Pulse Rate: 77 Blood Pressure: 156/77 Respiratory Rate: 18 Pulse Ox: 98 Airway Assessment Mouth opens: >3 cm Mallampati Score: II Focused Labs Anesthesia Preop lab: CBC WBC 7.7 K/mm3 (4.4-11.0) 09/04/24 14:41 09/04/24 RBC 3.84 M/mm3 (4.2-5.4) L 09/04/24 14:41 09/04/24 Hgb 11.9 g/dL (12.0-15.0) L 09/04/24 14:41 5 Hct 35.2 % (37-47) L 09/04/24 14:41 09/04/24 Plt Count 323 K/mm3 (150-450) 09/04/24 14:41 09/04/24 CHEMISTRY Potassium 3.8 mmol/L (3.3-5.1) 09/04/24 14:41 09/04/24 Sodium 139 mmol/L (133-145) 09/04/24 14:41 09/04/24 Magnesium 2.1 mg/dL (1.5-2.2) 09/04/24 14:41 09/04/24 Phosphorus 3.0 mg/dL (2.7-4.5) 09/04/24 14:41 09/04/24 BUN 18 mg/dL (4-19) 09/04/24 14:41 09/04/24 Creatinine 0.83 mg/dL (0.70-1.20) 09/04/24 14:41 09/04/24 Glucose 87 mg/dL (70-99) 09/04/24 14:41 09/04/24 TSH 4.790 uIU/mL (0.358-3.740) H 08/04/24 08:39 COAG Pre-Assessment Diagnosis/Proposed Procedure Planned Operative Procedure(s): (R) Insertion, Vascular Port right poss left Anesthesia History Anesthesia History - faculty research physician: Anesthesia History - faculty research physician Hx Hospitalization No 09/11/24 08:24 Any Problems With Anesthesia No 09/11/24 08:24 Cholinesterase deficiency No 09/11/24 08:24 You/Your Family Experience No 09/11/24 08:24 fever (hyperthermia) with Relationship Recent Exposure to Contagious No 09/17/24 07:48 Disease Does patient have nerve No 09/11/24 08:24 stimulator Patient instructed to have device shut off --Does patient have Pacemaker No 09/17/24 07:48 or ICD? When Was Last Pacemaker Check QUESTION #4 FULL TEXT: You/Your Family Experience fever (hyperthermia) with Anesthesia Last Oral Intake Last Oral intake: Last Oral Intake NPO since 06:15 09/17/24 07:48 Meds taken in AM with sips of Yes 09/17/24 07:48 water? Meds patient instructed to take am of surgery PONV PONV - faculty research physician: PONV - faculty research physician Female Yes 09/11/24 08:24 HX of Motion Sickness No 09/11/24 08:24 HX of N/V After Surgery No 09/11/24 08:24 Non-Smoker No 09/11/24 08:24 Duration of Surgery greater Yes 09/11/24 08:24 than 60 minutes Number of Risk Factors 2 09/11/24 08:24 PONV Score Moderate Risk 09/11/24 08:24 Height & Weight Height & Weight: Anesthesia: Height & Weight Height 5 ft 7 in 09/17/24 07:48 Weight: 92 kg 09/17/24 07:48 Body Mass Index (BMI) 31.7 09/17/24 07:48 Respiratory Assessment Respiratory Assessment - faculty research physician: Respiratory Tract Infection Hx - faculty research physician Hx Respiratory Tract Infection No 09/11/24 08:24 STOP Sleep Apnea STOP Sleep Apnea - faculty research physician: STOP Sleep Apnea - faculty research physician Hx Hypertension Yes: COTNROLLED WITH MED 09/11/24 08:24 Hx Sleep Apnea No 09/11/24 08:24 CPAP BIPAP Do you snore loudly (louder No 09/11/24 08:24 than talking or can be heard Do you often feel tired/ No 09/11/24 08:24 fatigued/ sleepy during daytime? Has anyone observed you stop No 09/11/24 08:24 breathing during sleep? STOP Results Negative 09/11/24 08:24 QUESTION #5 FULL TEXT : Do you snore loudly (louder than talking or can be heard through closed doors)? 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 Specify any problems Hx of Preganancy in last 3 No 09/11/24 08:24 Months Nurse Filling Out Transfusion VCHRISTIN 09/11/24 08:24 & Questions: Date: 09/11/24 09/11/24 08:24 Time: 08:09/11/24 08:24 Patient unable to answer at this time (ie. confused, unrespo /Reproduction History /Reproductive History - faculty research physician: /Reproductive Hx- faculty research physician Hx Now Gestational Age (in weeks): EDC: Hx Hx Para Hx Section SAB Active Medications Active Medications: Current Medications Generic Name Dose Route Start Last Admin Trade Name Freq PRN Reason Stop Dose Admin Cefazolin Sodium 2 gm/ N/A 20 mls @ 400 mls/hr 09/17/24 09:00 IV 09/17/24 09:02 PREOP ONE [facility] Medical History Encounter for education Regional lymph node metastasis present Wears glasses Smoker History of echocardiogram Cardiology follow-up encounter Wears dentures Blood in stool Chronic constipation Hyperlipidemia Health care maintenance Hypothyroidism Thyroid disease Hypertension Home Medications ?Medication ?Instructions ?Recorded ?Last Taken ?Type clopidogrel 75 mg tablet 75 mg PO DAILY #90 tabs 10/1009/11/24 Rx hydrochlorothiazide 25 mg tablet 25 mg PO QAM #90 tabs 11/01/23 Unknown Rx losartan 100 mg tablet 100 mg PO DAILY #90 tabs 09/17/24 06:15 Rx carvedilol 6.25 mg tablet 6.25 mg PO DAILY #90 tabs 09/17/24 06:15 Rx atorvastatin 40 mg tablet 40 mg PO DAILY #90 tabs 07/13 10/03 Unknown Rx levothyroxine 150 mcg tablet 150 mcg PO DAILY #120 tab s 08/04/24 09/17/24 06:15 Rx potassium iodide 65 mg tablet 130 mg PO QDAY PRN pain 09/08/24 Unknown History lidocaine-prilocaine 2.5 %-2.5 % 1 applic topical ONCE PRN port 09/09/24 Unknown Rx topical cream access 30 days #30 grams ondansetron 8 mg disintegrating 8 mg PO Q8H PRN nausea and 09/09/24 Unknown Rx tablet vomiting #30 tabs prochlorperazine maleate 10 mg 10 mg PO Q6H PRN nausea and 09/09/24 Unknown Rx tablet vomiting #30 tabs Allergy/AdvReac Type Severity Reaction Status Date / Time No Known Allergies Allergy Verified 09/17/24 07:46 Family History Father Heart disease Mother Breast cancer Heart disease Surgical History Hx of colonoscopy S/P colectomy History of tonsillectomy (~1963) Social History Smoking Status: Current every day smoker tobacco type: cigarettes alcohol intake: current alcohol intake frequency: holidays/special occasions only substance use type: does not use what type of physical activity do you participate in: walking and other details: work frequency: 5-6 times per week Review of Systems (Anesthesia) ROS Narrative System reviewed and no additional complaints, except as documented. 09/17/24 0753 <Electronically signed by Kolton Ness MD > Date _ Kolton Ness MD Cosigner Signature: Date CC: ~ Signed [facility] Work Phone: 1(254) 141-127504-09-2025 Consult note [facility] Medical Records Department [address] [place] [address] Anesthesia Postop Eval I 09/17/24 0943 MR#: [id number] Acct: [id number] Name: TRUDY CALLE Jonathan Rep #:[id number] : 1960 63 From: Tristin Phipps CRNA PCP: Dr. Antoni Slaughter MD Status:[facility]am[facility] Y Race: C Location: [place] [address] Anesthesia: Postop Eval I Current Vital Signs Temperature: 98.6 F Pulse Rate: 78 Blood Pressure: 100/56 Respiratory Rate: 20 Pulse Ox: 95 Oxygen Delivery Method: Room Air Assessment Airway patent: Yes Spontaneous unlabored respirations: Yes Mental status: Awake and Calm nausea: No Vomiting: No Anesthesia Complication: No Fluid Hydration Crystalloid volume administer (ml): 400 Total IV fluid infused: 400 Progress Note Anesthesia document: Postop Eval 1 completed: Yes 09/17/24943 y TEST CENTER ADMINISTRATOR> Date _ Tristin Phipps TEST CENTER ADMINISTRATOR Cosigner Signature: Date CC: ~ Signed [facility]04-09-2025 Discharge summary [facility] Medical Records Department [address] [place] [address] Instructions for Home/Discharge Instructions 09/17/24937 MR#: [id number] Acct: [id number] Name: TRUDY CALLE Rep #:[id number] : 1960 63 From: Humberto garner MD PCP: Dr. Antoni Slaughter MD Status:[facility] Discharge Instructions Procedure Port-A-Cath Diet Discharge Diet: Light diet - advance as tolerated (Pain medication may cause nausea. You should typically eat light foods as you take your pain medication.) Activity Discharge Activity: Return to Normal Activity and May Shower (with your bandage in place in 1-2 days after surgery. DO NOT SHOWER WHEN YOUR PORT IS ACCESSED.) Additional Activity Instructions:: Resume Plavix on Sunday Alternate ibuprofen and Tylenol for pain control Dressing / Incision Call your doctor if your incision/area has: Continuous Slow Oozing, Sudden Increased Bleeding, Increased Pain/ Swelling, Increased Redness and Foul Smelling Discharge Call your doctor if you observe: Fever of 101 or Higher Remove Dressing in: 2 days Cleanse incision/area with: Soap & Water Follow Up Care Please Follow Up With: Humberto Leigh MD When: as needed [phone] Test Results: Test results from this visit will be discussed in further detail at your follow- up appointment, if applicable. Discharge Plan Admission Attending Provider: Humberto Leigh Primary Care Provider: Antoni Slaughter Instructions Print Language: Zambian Discharge Orders/Prescriptions Prescriptions: No Action losartan 100 mg tablet 100 mg PO DAILY Qty: 90 1RF hydrochlorothiazide 25 mg tablet 25 mg PO QAM Qty: 90 1RF clopidogrel 75 mg tablet 75 mg PO DAILY Qty: 90 1RF Patient Comments: STOP 5 DAYS PRIOR TO PROCEDURE-LAST DOSE 09/11/2024 ondansetron 8 mg tablet,disintegrating 8 mg PO Q8H PRN (Reason: nausea and vomiting) Qty: 30 2RF lidocaine-prilocaine 2.5-2.5 % cream 1 applic topical ONCE PRN (Reason: port access) 30 Days Qty: 30 2RF prochlorperazine maleate 10 mg tablet 10 mg PO Q6H PRN (Reason: nausea and vomiting) Qty: 30 2RF potassium iodide 65 mg tablet 130 mg PO QDAY PRN (Reason: pain) carvedilol 6.25 mg tablet 6.25 mg PO DAILY Qty: 90 1RF levothyroxine 150 mcg tablet 150 mcg PO DAILY Qty: 120 1RF Rx Instructions: Take 150 mcg 6 days a week and 225 mcg 1 day a week. atorvastatin 40 mg tablet 40 mg PO DAILY Qty: 90 1RF Referrals / Follow Up: Antoni Slaughter MD [Primary Care Provider] - Disposition Disposition (needs filled in before D/C Order can be placed): Home, Self Care 09/17/24 0938Humberto Leigh MD CC: Dr. Antoni Slaughter MD ~ Signed [facility]04-09-2025 Procedure note [facility] Medical Records Department [address] [place] [address] Operative Report 09/17/24 0937 MR#: [id number] Acct: [id number] Name: TRUDY CALLE Rep #:[id number] : 1960 63 From: Humberto garner MD PCP: Dr. Antoni Slaughter MD Status:R EG [facility] Location: [place] [address] Operative Report (Standard) Operative Information Date of Procedure: 09/17/24 Pre-Operative Diagnosis: Need for vascular access for chemotherapy Post-Operative Diagnosis: Same Surgery/Procedure Performed: Ultrasound and fluoroscopy guided right chest port placement utilizingright IJ gravel inspector: No Type of Anesthesia: Local MAC RN Documented Start/Stop Times: Operation Date: 09/17/24 09:00 Case Time Into Pre-Op 09/17/24 07:30 Anesthesia Start 09/17/24 09:00 Into Room 09/17/24 09:00 Procedure Start 09/17/24 09:14 Procedure End 09/17/24 09:31 Anesthesia End 09/17/24 09:36 Out of Room 09/17/24 09:36 Procedure Start Time: 09:14 Procedure Stop Time: 09:31 Select all DRAINS/GRAFTS/IMPLANTS that apply: Implanted device Implanted device details: 8 [employer] Estimated Blood Loss: 5 Specimen collected: No Description of surgery: After obtaining informed consent patient was brought back to the operating room MAC anesthesia was induced and the right chest and neck were prepped in normal sterile fashion. Ultrasound was used to evaluate both IJs and the right IJ was selected. Next, using a needle, the right IJ was accessed elizabeth guidewire was passed on into the superior vena cava under fluoroscopy guidance. A small incision was made over the puncture site and the dilator introducer was placed over the guidewire. Next this was capped and the pocket was made for the port. 1% lidocaine with epinephrine was injected in the proposed port site. An incision was made with scalpel. Electrocautery was used to make a pocket under the skin and subcutaneous tissue. Hemostasis was obtained. Next, the catheter was tunneled up to the neck incision site and placed through the introducer. The peel-away introducer was removed and theposition of the catheter was confirmed on fluoroscopy. Next, the catheter was trimmed and attached to the port with the locking device. Interrupted 2-0 Vicryl sutures were used to anchor the port to t he chest wall and then the port was placed inside the pocket. The pocket was then flushed with saline and the port irrigated with saline. There was good blood return and the port flushed easily. Next, heparinwas injected into the port. The skin was closed with subcutaneous interrupted 3-0 Vicryl sutures. A single 3-0 Vicryl sutures placed under the skin at the neck incision site. Steri-Strips were placed as well as op sites. Patient tolerated procedure well, was taken to PACU in stable condition. Chest x-ray will be obtained. Surgical Findings: 8 [employer] Complications Complications: No Admit VTE Documentation VTE Mechan Device Prophylaxis: SCD's 09/17/24 09 Cosigner Signature (if applicable): CC: Dr. Humberto Leigh MD; Dr. Antoni Slaughter MD~ Signed [facility]04-09-2025 History and physical note [facility] Medical Records Department [address] [place] [address] History & Physical Exam 09/17/24 0834 MR#: [id number] Acct: [id number] Name: TRUDY CALLE Rep #:[id number] : 1960 63 From: Humberto garner MD PCP: Dr. Antoni Slaughter MD Status:R [facility] Location: [place] [address] History and Physical Date of Admission: 09/17/24 Intake Chief Complaint: port placement Allergies No Known Allergies Allergy (Verified 09/08/24 08:54) Medications ?Medication ?Instructions ?Recorded ?Confirmed ?Type clopidogrel 75 mg tablet 75 mg PO DAILY #90 tabs 11/01/23 5 Rx hydrochlorothiazide 25 mg tablet 25 mg PO QAM #90 tabs 11/01/23 09/08/24 Rx losartan 100 mg tablet 100 mg PO DAILY #90 tabs 11/01/23 Rx carvedilol 6.25 mg tablet 6.25 mg PO DAILY #90 tabs 05/02/2409/08 Rx atorvastatin 40 mg tablet 40 mg PO DAILY #90 tabs 08/04/24 5 Rx levothyroxine 150 mcg tablet 150 mcg PO DAILY #120 tabs 08/04/2408/11 Rx potassium iodide 65 mg tablet 130 mg PO QDAY 09/08/24 09/08/24 History Assessment and Plan Assessment and Plan (1) Colorectal cancer: Status: Acute 09/08/2418 Date Humberto Leigh MD cc: ~* Signed Intake Vital Signs 09/04/2512:38 09/09/2507:54 Height 5 ft 7 in 5 ft 7 in BP 146/83 H 113/72 Blood Pressure Location Lt brachial Rt brachial Position Sitting Sitting Respiration 16 16 Pulse 67 Pulse Source Monitor Temp 96.5 F L Pulse Oximetry (%) 97 Oxygen Delivery Method room air Intake Visit Reasons: PORT PLACEMENT Chief Complaint: port placement Rural Carrier Required: No Is patient in pain?: No Allergies No Known Allergies Allergy (Verified 09/08/24 08:54) Medications ?Medication ?Instructions ?Recorded ?Confirmed ?Type clopidogrel 75 mg tablet 75 mg PO DAILY #90 tabs 11/01/23 5 Rx hydrochlorothiazide 25 mg tablet 25 mg PO QAM #90 tabs 11/01/23 09/08/24 Rx losartan 100 mg tablet 100 mg PO DAILY #90 tabs 11/01/23 Rx carvedilol 6.25 mg tablet 6.25 mg PO DAILY #90 tabs 05/02/2409/08 Rx atorvastatin 40 mg tablet 40 mg PO DAILY #90 tabs 08/04/24 5 Rx levothyroxine 150 mcg tablet 150 mcg PO DAILY #120 tabs 08/04/2408/11 Rx potassium iodide 65 mg tablet 130 mg PO QDAY 09/08/24 09/08/24 History Have you fallen in the past year?: No PFSH Medical History Regional lymph node metastasis present Wears glasses Smoker History of echocardiogram Cardiology follow-up encounter Wears dentures Blood in stool Chronic constipation Hyperlipidemia Health care maintenance Hypothyroidism Thyroid disease Hypertension Surgical History S/P colectomy History of tonsillectomy (~1963) Family History Father Heart diseaseMother Breast cancer Heart disease Social History Smoking Status: Current every day smoker tobacco type: cigarettes alcohol intake: current alcohol intake frequency: holidays/special occasions only substance use type: does not use what type of physical activity do you participate in: walking and other details: work frequency: 5-6 times per week HPI HPI HPI: Patient is a 63-year-old female here for right chest port placement. She has colon cancer which waspositive in the lymph nodes. ROS General General: Yes colon cancer; No weight change, appetite, fatigue, breast cancer or weakness HEENT HEENT: No difficulty swallowing, eye injury, eye surgery, swollen glands or hoarseness Endo Endocrine: Yes thyroid disease; No diabetes mellitus, thyroid cancer, Hair loss, heat intolerance or cold intolerance Skin Skin: No rash or changing moles Breast Breast: No left breast lump, right breast lump, nipple discharge, breast pain, abnormal mammogram, abnormal US or breast enlargement Musc Musculoskeletal: No back problems, arthritis, rheumatoid arthritis, gout or joint pain Cardio Cardiovascular: Yes high blood pressure; No murmur, pacemaker, heart disease, atrial fibrillation, heart attack, heart stent, palpitations, shortness of breath with exertion or chest pain Psych Psychiatric: No depression, anxiety or hearing voices Resp Respiratory: No shortness of breath, No sleep apnea, No cough, No COPD, No asthma, No emphysema andNo wheezing Gastro Gastrointestinal: No abdominal pain, No nausea or vomiting, No diarrhea, No constipation, No blood in stool, No acid reflux, No hemorrhoids, No ulcers, No gallbladder problem and No black,tarry stools Bennett Hematologic: Yes blood thinners, No blood disorders, No bleeding, No anemia and No blood clots Neuro Neurologic: No system reviewed and no additional complaints, except as documented, No as per HPI, No abnormal gait, No abnormal hearing, No abnormal movements, No abnormal speech, No behavioral changes, No burning sensations, No confusion, No convulsions, No disequilibrium, No dizziness, No localized weakness, No frequent falls, No headache(s), No lack of coordination, No loss ofvision, No memoryloss, No numbness, No other visual disturbances, No radicular pain, No restless legs, No sensory deficit, No syncope, No tingling, No tremor(s), No weakness and No other Exam Const General: cooperative Orientation: alert and oriented x3 HENIN Head: normal to inspection Neck Neck: normal visual inspection and full ROM Chest Chest palpation & inspection: normal inspection of the chest Resp Effort & Inspection: normal respiratory effort Auscultation: clear to auscultation bilaterally Cardio Rate: regular rate Rhythm: regular rhythm GI Inspection: non-distended Palpation: soft and nontender Skin General: no rashes or lesions noted Neuro General: patient alert and patient oriented x3 Extrem General: full ROM Psych Appearance: grossly normal Mental Status: mental status grossly normal Assessment and Plan Assessment and Plan (1) Colorectal cancer: Status: Acute Plan: Patient has colon cancer with positive lymph nodes. I discussed right chest port placement with thepatient in detail. I discussed the risks including but not limited to bleeding, infection, pneumothorax, line infection or DVT. Patient understands the risks and is willing to proceed. She will hold her Plavix for 5 days. Humberto Leigh MD Pager: [facility] [address] [place] [address], [address] [place] [address] Office: I have seen and examined the patient and reviewed the H&P. THere are no clinicalchanges. 09/17/24 0835 Cosigner Signature (if applicable): CC: Dr. Humberto Leigh MD; Dr. Antoni Slaughter MD~ Signed [facility]04-09-2025 [facility] Medical Records Department [address] [place] [address] History Physical Exam 09/17/24 0834 MR#: [id number] Acct: [id number] Name: TRUDY CALLE Rep #: [id number] : 1960 63 From: Humberto Leigh MD PCP: Dr. Antoni Slaughter MD Status:[facility] Location: [place] [address] History and Physical Date of Admission: 09/17/24 Intake Chief Complaint: port placement Allergies No Known Allergies Allergy (Verified 09/08/24 08:54) Medications ???Medication ???Instructions ???Recorded ???Confirmed ???Type clopidogrel 75 mg tablet 75 mg PO DAILY #90 tabs 11/01/23 09/08/24 Rx hydrochlorothiazide 25 mg tablet 25 mg PO QAM #90 tabs 11/01/23 09/08/24 Rx losartan 100 mg tablet 100 mg PO DAILY #90 tabs 11/01/23 09/08/24 Rx carvedilol 6.25 mg tablet 6.25 mg PO DAILY #90 tabs 05/02/24 09/08/24 Rx atorvastatin 40 mg tablet 40 mg PO DAILY #90 tabs 08/04/24 09/08/24 Rx levothyroxine 150 mcg tablet 150 mcg PO DAILY #120 tabs 08/04/24 09/08/24 Rx potassium iodide 65 mg tablet 130 mg PO QDAY 09/08/24 09/08/24 History Assessment and Plan Assessment and Plan (1) Colorectal cancer: Status: Acute 09/08/24917 Date Humberto Leigh MD cc: * Signed Intake Vital Signs 09/04/2512:38 09/09/2507:54 Height 5 ft 7 in 5 ft 7 in BP 146/83 H 113/72 Blood Pressure Location Lt brachial Rt brachial Position Sitting Sitting Respiration 16 16 Pulse 67 Pulse Source Monitor Temp 96.5 F L Pulse Oximetry (%) 97 Oxygen Delivery Method room air Intake Visit Reasons: PORT PLACEMENT Chief Complaint: port placement Rural Carrier Required: No Is patient in pain?: No Allergies No Known Allergies Allergy (Verified 09/08/24 08:54) Medications ???Medication ???Instructions ???Recorded ???Confirmed ???Type clopidogrel 75 mg tablet 75 mg PO DAILY #90 tabs 11/01/23 09/08/24 Rx hydrochlorothiazide 25 mg tablet 25 mg PO QAM #90 tabs 11/01/23 09/08/24 Rx losartan 100 mg tablet 100 mg PO DAILY #90 tabs 11/01/23 09/08/24 Rx carvedilol 6.25 mg tablet 6.25 mg PO DAILY #90 tabs 05/02/24 09/08/24 Rx atorvastatin 40 mg tablet 40 mg PO DAILY #90 tabs 08/04/24 09/08/24 Rx levothyroxine 150 mcg tablet 150 mcg PO DAILY #120 tabs 08/04/24 09/08/24 Rx potassium iodide 65 mg tablet 130 mg PO QDAY 09/08/24 09/08/24 History Have you fallen in the past year?: No PFSH Medical History Regional lymph node metastasis present Wears glasses Smoker History of echocardiogram Cardiology follow-up encounter Wears dentures Blood in stool Chronic constipation Hyperlipidemia Health care maintenance Hypothyroidism Thyroid disease Hypertension Surgical History S/P colectomy History of tonsillectomy ( 1963) Family History Father Heart diseaseMother Breast cancer Heart disease Social History Smoking Status: Current every day smoker tobacco type: cigarettes alcohol intake: current alcohol intake frequency: holidays/special occasions only substance use type: does not use what type of physical activity do you participate in: walking and other details: work frequency: 5-6 times per week HPI HPI HPI: Patient is a 63-year-old female here for right chest port placement. She has colon cancer which was positive in the lymph nodes. ROS General General: Yes colon cancer; No weight change, appetite, fatigue, breast cancer or weakness HEENT HEENT: No difficulty swallowing, eye injury, eye surgery, swollen glands or hoarseness Endo Endocrine: Yes thyroid disease; No diabetes mellitus, thyroid cancer, Hair loss, heat intolerance or cold intolerance Skin Skin: No rash or changing moles Breast Breast: No left breast lump, right breast lump, nipple discharge, breast pain, abnormal mammogram, abnormal US or breast enlargement Musc Musculoskeletal: No back problems, arthritis, rheumatoid arthritis, gout or joint pain Cardio Cardiovascular: Yes high blood pressure; No murmur, pacemaker, heart disease, atrial fibrillation, heart attack, heart stent, palpitations, shortness of breath with exertion or chest pain Psych Psychiatric: No depression, anxiety or hearing voices Resp Respiratory: No shortness of breath, No sleep apnea, No cough, No COPD, No asthma, No emphysema and No wheezing Gastro Gastrointestinal: No abdominal pain, No nausea or vomiting, No diarrhea, No constipation, No blood in stool, No acid reflux, No hemorrhoids, No ulcers, No gallbladder problem and No black,tarry stools Bennett (more content not included)...[facility]04-09-2025 Consult note [facility] Medical Records Department [address] [place] [address] Pre-Anesthesia Evaluation 09/17/24 0757 MR#: [id number] Acct: [id number] Name: TRUDY CALLE Rep #:[id number] : 1960 63 From: Kolton Ness MD PCP: Dr. Antoni Slaughter MD Status:R EG [facility] Y Race: C Location: [place] [address] ASA Classification* ASA Classification ASA Classification: 2 Assessment & Plan Anesthesia* Anesthesia Assessment Anesthesia Assessment: Discussed sedation and/or anesthesia options, risks, benefits, and alternatives with patient/parents/legal guardian/POA. Questions invited. The patient/parents/legal guardian/POA seems to understand and agrees to proceedwith anesthesia plan. Reviewed the physical assessment, medical history, allergy history and patient home medications list prior to surgery/procedure/anesthetic and documented any changes. Performed airway and anesthesia risk assessments. Anesthesia Type Anesthesia Type: MAC Anesthesia Focused Assessment* Temperature: 98.2 F Pulse Rate: 77 Blood Pressure: 156/77 Respiratory Rate: 18 Pulse Ox: 98 Airway Assessment Mouth opens: >3 cm Mallampati Score: II Focused Labs Anesthesia Preop lab: CBC WBC 7.7 K/mm3 (4.4-11.0) 09/04/24 14:41 09/04/24 RBC 3.84 M/mm3 (4.2-5.4) L 09/04/24 14:41 09/04/24 Hgb 11.9 g/dL (12.0-15.0) L 09/04/24 14:41 5 Hct 35.2 % (37-47) L 09/04/24 14:41 09/04/24 Plt Count 323 K/mm3 (150-450) 09/04/24 14:41 09/04/24 CHEMISTRY Potassium 3.8 mmol/L (3.3-5.1) 09/04/24 14:41 09/04/24 Sodium 139 mmol/L (133-145) 09/04/24 14:41 09/04/24 Magnesium 2.1 mg/dL (1.5-2.2) 09/04/24 14:41 09/04/24 Phosphorus 3.0 mg/dL (2.7-4.5) 09/04/24 14:41 09/04/24 BUN 18 mg/dL (4-19) 09/04/24 14:41 09/04/24 Creatinine 0.83 mg/dL (0.70-1.20) 09/04/24 14:41 09/04/24 Glucose 87 mg/dL (70-99) 09/04/24 14:41 09/04/24 TSH 4.790 uIU/mL (0.358-3.740) H 08/04/24 08:39 COAG Pre-Assessment Diagnosis/Proposed Procedure Planned Operative Procedure(s): (R) Insertion, Vascular Port right poss left Anesthesia History Anesthesia History - faculty research physician: Anesthesia History - faculty research physician Hx Hospitalization No 09/11/24 08:24 Any Problems With Anesthesia No 09/11/24 08:24 Cholinesterase deficiency No 09/11/24 08:24 You/Your Family Experience No 09/11/24 08:24 fever (hyperthermia) with Relationship Recent Exposure to Contagious No 09/17/24 07:48 Disease Does patient have nerve No 09/11/24 08:24 stimulator Patient instructed to have device shut off --Does patient have Pacemaker No 09/17/24 07:48 or ICD? When Was Last Pacemaker Check QUESTION #4 FULL TEXT: You/Your Family Experience fever (hyperthermia) with Anesthesia Last Oral Intake Last Oral intake: Last Oral Intake NPO since 06:15 09/17/24 07:48 Meds taken in AM with sips of Yes 09/17/24 07:48 water? Meds patient instructed to take am of surgery PONV PONV - faculty research physician: PONV - faculty research physician Female Yes 09/11/24 08:24 HX of Motion Sickness No 09/11/24 08:24 HX of N/V After Surgery No 09/11/24 08:24 Non-Smoker No 09/11/24 08:24 Duration of Surgery greater Yes 09/11/24 08:24 than 60 minutes Number of Risk Factors 2 09/11/24 08:24 PONV Score Moderate Risk 09/11/24 08:24 Height & Weight Height & Weight: Anesthesia: Height & Weight Height 5 ft 7 in 09/17/24 07:48 Weight: 92 kg 09/17/24 07:48 Body Mass Index (BMI) 31.7 09/17/24 07:48 Respiratory Assessment Respiratory Assessment - faculty research physician: Respiratory Tract Infection Hx - faculty research physician Hx Respiratory Tract Infection No 09/11/24 08:24 STOP Sleep Apnea STOP Sleep Apnea - faculty research physician: STOP Sleep Apnea - faculty research physician Hx Hypertension Yes: COTNROLLED WITH MED 09/11/24 08:24 Hx Sleep Apnea No 09/11/24 08:24 CPAP BIPAP Do you snore loudly (louder No 09/11/24 08:24 than talking or can be heard Do you often feel tired/ No 09/11/24 08:24 fatigued/ sleepy during daytime? Has anyone observed you stop No 09/11/24 08:24 breathing during sleep? STOP Results Negative 09/11/24 08:24 QUESTION #5 FULL TEXT : Do you snore loudly (louder than talking or can be heard through closeddoors)? 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 Specify any problems Hx of Preganancy in last 3 No 09/11/24 08:24 Months Nurse Filling Out Transfusion VCHRISTIN 09/11/24 08:24 & Questions: Date: 09/11/24 09/11/24 08:24 Time: 08:09/11/24 08:24 Patient unable to answer at this time (ie. confused, unrespo /Reproduction History /Reproductive History - faculty research physician: /Reproductive Hx- faculty research physician Hx Now Gestational Age (in weeks): EDC: Hx Hx Para Hx Section SAB Active Medications Active Medications: Current Medications Generic Name Dose Route Start Last Admin Trade Name Freq PRN Reason Stop Dose Admin Cefazolin Sodium 2 gm/ N/A 20 mls @ 400 mls/hr 09/17/24 09:00 IV 09/17/24 09:02 PREOP ONE [facility] Medical History Encounter for education Regional lymph node metastasis present Wears glasses Smoker History of echocardiogram Cardiology follow-up encounter Wears dentures Blood in stool Chronic constipation Hyperlipidemia Health care maintenance Hypothyroidism Thyroid disease Hypertension Home Medications ?Medication ?Instructions ?Recorded ?Last Taken ?Type clopidogrel 75 mg tablet 75 mg PO DAILY #90 tabs 10/1009/11/24 Rx hydrochlorothiazide 25 mg tablet 25 mg PO QAM #90 tabs 11/01/23 Unknown Rx losartan 100 mg tablet 100 mg PO DAILY #90 tabs 09/17/24 06:15 Rx carvedilol 6.25 mg tablet 6.25 mg PO DAILY #90 tabs 09/17/24 06:15 Rx atorvastatin 40 mg tablet 40 mg PO DAILY #90 tabs 07/13 10/03 Unknown Rx levothyroxine 150 mcg tablet 150 mcg PO DAILY #120 tab s 08/04/24 09/17/24 06:15 Rx potassium iodide 65 mg tablet 130 mg PO QDAY PRN pain 09/08/24 Unknown History lidocaine-prilocaine 2.5 %-2.5 % 1 applic topical ONCE PRN port 09/09/24 Unknown Rx topical cream access 30 days #30 grams ondansetron 8 mg disintegrating 8 mg PO Q8H PRN nausea and 09/09/24 Unknown Rx tablet vomiting #30 tabs prochlorperazine maleate 10 mg 10 mg PO Q6H PRN nausea and 09/09/24 Unknown Rx tablet vomiting #30 tabs Allergy/AdvReac Type Severity Reaction Status Date / Time No Known Allergies Allergy Verified 09/17/24 07:46 Family History Father Heart disease Mother Breast cancer Heart disease Surgical History Hx of colonoscopy S/P colectomy History of tonsillectomy (~1964) Social History Smoking Status: Current every day smoker tobacco type: cigarettes alcohol intake: current alcohol intake frequency: holidays/special occasions only substance use type: does not use what type of physical activity do you participate in: walking and other details: work frequency: 5-6 times per week Review of Systems (Anesthesia) ROS Narrative System reviewed and no additional complaints, except as documented. 09/17/24 0757 > Date _ Kolton Ness MD Cosigner Signature: Date CC: ~ Signed [facility]04-04-2025 Telephone encounter Note* Telephone Encounter - Luis F Hurtado RN - 09/12/2024 1:39 PM EDT [employer] ASSISTANT ONE MONTH FOLLOW UP PHONE CALL PHONE CALL DATE: 09/12/2024 PHONE CALL TIME: 1:39 PM DATE OF SURGERY: 08/14/2024 PROCEDURE: Robotic LAR FOLLOW UP QUESTIONS: Is your appetite gradually improving? Yes Is your incision healing well? Yes Are you having regular bowel movements? Yes Did you have a good experience with your recent hospital stay? Yes Have you completed your follow up visit with your surgeon? Yes Patient states recovery is going well. She has no concerns at this time. Encouraged to call MD withany questions/concerns. SIGNATURE: Luis F Hurtado RN DATE: 09/12/2024 TIME: 1:39 PM CONTACT #:[phone] [facility]04-04-2025 Miscellaneous Notes* Telephone Encounter - Luis F Hurtado RN - 09/12/2024 1:39 PM EDT [employer] ENRICHMENT ASSISTANT ONE MONTH FOLLOW UP PHONE CALL PHONE CALL DATE: 09/12/2024 PHONE CALL TIME: 1:39 PM DATE OF SURGERY: 08/14/2024 PROCEDURE: Robotic LAR FOLLOW UP QUESTIONS: Is your appetite gradually improving? Yes Is your incision healing well? Yes Are you having regular bowel movements? Yes Did you have a good experience with your recent hospital stay? Yes Have you completed your follow up visit with your surgeon? Yes Patient states recovery is going well. She has no concerns at this time. Encouraged to call MD withany questions/concerns. SIGNATURE: Luis F Hurtado RN DATE: 09/12/2024 TIME: 1:39 PM CONTACT #:[phone] [facility] in [facility] NoteHNO ID: [id number] Author: VIBHA FLORES MD Service: ? Author Type: Physician Type: Progress Notes Filed: 08/29/2024 13:02 Note Text: Vibha Flores M.D. 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 Patient reports feeling generally well, with no significant abdominal pain except for a pinching sensation at RLQ incision. She has not required any pain medication other than Tylenol. She reports a good appetite and is eating well. Bowel movements are reportedly improving, becoming more formed, and occurring once or twice daily. She is staying hydrated and drinking plenty of fluids. Patient is under the care of medical oncologist Dr. Leach and has a follow-up appointment scheduled in approximately two weeks to discuss adjuvant chemotherapy. Past Diagnostic Results: - Colonoscopy (June 26, 2024): Performed to evaluate constipation and rectal bleeding; revealed an ulcerated, partially obstructing large mass within the rectosigmoid colon; scope was not advanced past the sigmoid colon due to poor bowel preparation. - Surgical Pathology: Moderately differentiated adenocarcinoma; 3 out of 12 lymph nodes positive for cancer; all margins negative; focal endometrial-type stroma in gland suggestive of endometriosis; lymphovascular invasion present, no perineural invasion, low tumor budding; pMMR. Final pathology staged as pT3N1b. Review of Systems: For pertinent positives and negatives, please see HPI PAST MEDICAL HISTORY Diagnosis Date Hyperlipidemia Hypertension Hypothyroidism PAD (peripheral artery disease) (HCC) Rectal cancer (HCC) PAST SURGICAL HISTORY Procedure Laterality Date COLONOSCOPY SCREENING 06/26/2024 PAST SURGICAL HISTORY OF teeth removed in early 70's TONSILLECTOMY AND ADENOIDECTOMY as a child Social History Tobacco Use Smoking status: Every Day Current packs/day: 1.00 Average packs/day: 1 pack/day for 50.2 years (50.2 ttl pk-yrs) Types: Cigarettes Start date: 1974 Smokeless tobacco: Never Tobacco comments: Currently smoking 3/4 PPD Vaping Use Vaping status: Former Quit date: 06/11/2023 Substance Use Topics Alcohol use: Yes Comment: very rarely Drug use: Never FAMILY HISTORY Problem Relation Age of Onset Breast Cancer Mother Heart disease Father CABG-in his 60's The ROS, medical, surgical, family, and social history were reviewed by Vibha Flores MD ALLERGIES No Known Allergies Current Outpatient Medications Medication Sig levothyroxine 150 mcg cap Take 150 mcg by mouth daily before breakfast. clopidogrel (PLAVIX) 75 mg tablet Take 75 mg by mouth once daily. losartan (COZAAR) 100 mg tablet Take 100 mg by mouth once daily. hydroCHLOROthiazide 25 mg tablet Take 25 mg by mouth once daily. atorvastatin (LIPITOR) 20 mg tablet Take 1 tablet by mouth every afternoon. carvedilol (COREG) 6.25 mg tablet Take 1 tablet by mouth every afternoon. promethazine (PHENERGAN) 25 mg tablet Take 1 tab by mouth every 4 hours as needed for nausea. (Patient not taking: Reported on 08/29/2024) No current facility-administered medications for this visit. Vitals: BP 138/84 (BP Site: Right Arm, BP Position: Sitting, BP Cuff Size: Regular Adult) Pulse 90 Wt 93 kg (205 lb) BMI 32.11 kg/m? BMI 32.11 kg/(m2) Physical Exam Constitutional: General: She is not in acute distress. Appearance: Normal appearance. She is not ill-appearing. Abdominal: General: There is no distension. Palpations: Abdomen is soft. Tenderness: There is no abdominal tenderness. Comments: Surgical incisions are clean and dry and well-healed. Neurological: Mental Status: She is alert and oriented to person, place, and time. Psychiatric: Mood and Affect: Mood and affect normal. Judgment: Judgment normal. Labs: Hemoglobin (g/dL) Date Value 08/15/2024 10.4 Hematocrit (%) Date Value 08/15/2024 31.5 WBC (k/uL) Date Value 08/15/2024 9.71 Platelet Count (k/uL) Date Value 08/15/2024 190 Creatinine Date Value Ref Range Status 08/15/2024 1.12 (H) 0.58 - 0.96 mg/dL Final No results found for: AST No results found for: ALT Antibody Screen (no units) Date Value 08/07/2024 Negative WBC (k/uL) Date Value 08/15/2024 9.71 RBC (m/uL) Date Value 08/15/2024 3.42 (L) %DIG,%DBS Pathology: 08/13/24 COLON AND RECTUM: Resection 8th Edition - Protocol posted: 4COLON AND RECTUM: RESECTION - All Specimens SPECIMEN Procedure Low anterior resection Macroscopic Evaluation of Mesorectum Complete TUMOR Tumor Site Rectosigmoid Histologic Type Adenocarcinoma Histologic Grade G2, moderately differentiated Tumor Size Greatest dimens (more content not included)...[facility]03-21-2025 History of Present illness Narrative* Vibha Flores MD - 08/29/2024 12:56 PM EDT Images from the original note were not included. Vibha Flores M.D. 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 Patient reports feeling generally well, with no significant abdominal pain except for a pinching sensation at RLQ incision. She has not required any pain medication other than Tylenol. She reports a good appetite and is eating well. Bowel movements are reportedly improving, becoming more formed, and occurring once or twice daily. She is staying hydrated and drinking plenty of fluids. Patient is under the care of medical oncologist Dr. Leach and has a follow-up appointment scheduled in approximately two weeks to discuss adjuvant chemotherapy. Past Diagnostic Results: - Colonoscopy (June 26, 2024): Performed to evaluate constipation and rectal bleeding; revealed an ulcerated, partially obstructing large mass within the rectosigmoid colon; scope was not advancedpast the sigmoid colon due to poor bowel preparation. - Surgical Pathology: Moderately differentiated adenocarcinoma; 3 out of 12 lymph nodes positive for cancer; all margins negative; focal endometrial-type stroma in gland suggestive of endometriosis; lymphovascular invasion present, no perineural invasion, low tumor budding; pMMR. Final pathology staged as pT3N1b. Review of Systems: For pertinent positives and negatives, please see HPI PAST MEDICAL HISTORY Diagnosis Date Hyperlipidemia Hypertension Hypothyroidism PAD (peripheral artery disease) (HCC) Rectal cancer (HCC) PAST SURGICAL HISTORY Procedure Laterality Date COLONOSCOPY SCREENING 06/26/2024 PAST SURGICAL HISTORY OF teeth removed in early 70's TONSILLECTOMY & ADENOIDECTOMY <AGE 10 as a child Social History Tobacco Use Smoking status: Every Day Current packs/day: 1.00 Average packs/day: 1 pack/day for 50.2 years (50.2 ttl pk-yrs) Types: Cigarettes Start date: 1974 Smokeless tobacco: Never Tobacco comments: Currently smoking 3/4 PPD Vaping Use Vaping status: Former Quit date: 06/11/2023 Substance Use Topics Alcohol use: Yes Comment: very rarely Drug use: Never FAMILY HISTORY Problem Relation Age of Onset Breast Cancer Mother Heart disease Father CABG-in his 60's The ROS, medical, surgical, family, and social history were reviewed by Vibha Flores MD ALLERGIES No Known Allergies Current Outpatient Medications Medication Sig levothyroxine 150 mcg cap Take 150 mcg by mouth daily before breakfast. clopidogrel (PLAVIX) 75 mg tablet Take 75 mg by mouth once daily. losartan (COZAAR) 100 mg tablet Take 100 mg by mouth once daily. hydroCHLOROthiazide 25 mg tablet Take 25 mg by mouth once daily. atorvastatin (LIPITOR) 20 mg tablet Take 1 tablet by mouth every afternoon. carvedilol (COREG) 6.25 mg tablet Take 1 tablet by mouth every afternoon. promethazine (PHENERGAN) 25 mg tablet Take 1 tab by mouth every 4 hours as needed for nausea. (Patient not taking: Reported on 08/29/2024) No current facility-administered medications for this visit. Vitals: BP 138/84 (BP Site: Right Arm, BP Position: Sitting, BP Cuff Size: Regular Adult) Pulse 90 Wt 93 kg (205 lb) BMI 32.11 kg/m BMI 32.11 kg/(m^2) Physical Exam Constitutional: General: She is not in acute distress. Appearance: Normal appearance. She is not ill-appearing. Abdominal: General: There is no distension. Palpations: Abdomen is soft. Tenderness: There is no abdominal tenderness. Comments: Surgical incisions are clean and dry and well-healed. Neurological: Mental Status: She is alert and oriented to person, place, and time. Psychiatric: Mood and Affect: Mood and affect normal. Judgment: Judgment normal. Labs: Hemoglobin (g/dL) Date Value 08/15/2024 10.4 Hematocrit (%) Date Value 08/15/2024 31.5 WBC (k/uL) Date Value 08/15/2024 9.71 Platelet Count (k/uL) Date Value 08/15/2024 190 Creatinine Date Value Ref Range Status 08/15/2024 1.12 (H) 0.58 - 0.96 mg/dL Final No results found for: AST No results found for: ALT Antibody Screen (no units) Date Value 08/07/2024 Negative WBC (k/uL) Date Value 08/15/2024 9.71 RBC (m/uL) Date Value 08/15/2024 3.42 (L) %DIG,%DBS Pathology: 08/13/24 COLON AND RECTUM: Resection 8th Edition - Protocol posted: 4COLON AND RECTUM: RESECTION - All Specimens SPECIMEN Procedure Low anterior resection Macroscopic Evaluation of Mesorectum Complete TUMOR Tumor Site Rectosigmoid Histologic Type Adenocarcinoma Histologic Grade G2, moderately differentiated Tumor Size Greatest dimension (Centimeters): 5 cm Tumor Extent Invades through muscularis propria into the pericolonic or perirectal tissue Macroscopic Tumor Perforation Not identified Lymphatic and / or Vascular Invasion Large vessel (venous), intramural Large vessel (venous), extramural Perineural Invasion Not identified Tumor Budding Score Low (0-4) Treatment Effect No known presurgical therapy MARGINS Margin Status for Invasive Carcinoma All margins negative for invasive carcinoma Margin Status for Non-Invasive Tumor Not applicable REGIONAL LYMPH NODES Regional Lymph Node Status Tumor present in regional lymph node(s) Number of Lymph Nodes with Tumor 3 Number of Lymph Nodes Examined 12 Tumor Deposits Not identified MMR Interpretation Proficient (Microsatellite Stable) MLH1 Immunohistochemical Results Normal/Intact Nuclear Expression PMS2 Immunohistochemical Results Normal/Intact Nuclear Expression MSH2 Immunohistochemical Results Normal/Intact Nuclear Expression MSH6 Immunohistochemical Results Normal/Intact Nuclear Expression Assessment/Plan: 1. Malignant neoplasm of rectosigmoid junction (HCC) Patient is status post robot-assisted low anterior resection on August 13, 2024 for rectosigmoid cancer. Pathology showed moderately differentiated adenocarcinoma with 3 out of 12 lymph nodes positive for cancer, -PNI, +LVI, and low tumor budding. Final pathology was a pT3N1b tumor. MMR proficient.Patient is under the care of medical oncologist Dr. Leach. Post-operative course was unremarkable. - Educated patient on the necessity of adjuvant chemotherapy to address potential microscopic cancer cells - Patient to follow-up with Dr. Leach to discuss options for chemotherapy - Advised patient on dietary modifications, including the gradual reintroduction of fruits and vegetables with thorough chewing. - Scheduled follow-up appointment in 3 months to assess progress and response to chemotherapy. - Plan for completion colonoscopy following chemo to ensure complete evaluation of remaining colon. Follow up: 3 months Vibha Flores M.D. Please Note: This office note has been created using [employer], a speech recognition software program, and may contain errors including punctuation, grammar, spelling, gender, and inappropriate words or phrases that pertain to the sytem. documented in this encounterS[facility] NoteHNO ID: [id number] Author: MERLIN SALINAS MD Service: General Surgery Author Type: Resident Type: Progress Notes Filed: 08/19/2024 19:05 Note Text: Documentation Query Please clarify the significance of the pathology report: I agree with the pathology findings dated 08/18/2024 which confirms the clinically significant diagnosis of Lymph node carcinoma This document will become part of the patient's medical record.[facility]03-07-2025 NoteHNO ID: [id number] Author: GAYLE FOUNTAIN LSW Service: Care Management Author Type: Want Ad Receiver Type: Care Mgt Progress Note Filed: 08/15/2024 09:35 Note Text: CARE MANAGEMENT PROGRESS NOTE SERVICE DATE: 08/15/2024 SERVICE TIME: 9:35 AM LOS: 2 days IMM Follow Up Copy Given: Yes Copy given to:: Patient Method: In Person Verbal confirmation SIGNATURE: DINA Crane PATIENT NAME: Trudy Calle DATE: August 15, 2024 TIME: 9:35 AM[facility]-2025 NoteHNO ID: [id number] Author: GAYLE FOUNTAIN LSW Service: Care Management Author Type: Want Ad Receiver Type: Care Mgt Initial Assessment Filed: 08/15/2024 09:35 Note Text: CARE MANAGEMENT: ASSESSMENT AND DISCHARGE PLAN SERVICE DATE: August 15, 2024 SERVICE TIME: 9:30 AM PCP: Antoni Slaughter MD Primary Contact: Extended Emergency Contact Information Primary Emergency Contact: Chiquita Encinas Mobile Relation: Sister Secondary Emergency Contact: Xuan Calle [address]: [address] [place] [address] Mobile Relation: Daughter Admission Status: Inpatient Insurance Provider: [employer] MED[employer]ARE HMO Discharge Planning requested by: Per Department Practice Potential Transition Plans Home Advance Directives Current Advance Directive: None Parking Meter Servicer Attempted to Assist with AD Completion: Yes Action: Education Provided Current Living Arrangements and Support Lives with: Family members Type of Residence: Private Residence (House) Does the patient have to climb stairs at home?: Yes Support: Family members How do you manage to accomplish the following: Independent: Ambulation, Bathe/Shower, Dress, Meals/Meal Prep, Going to the bathroom, Medication Management, Transportation to appointments/community Current Services/Equipment Current Post-Acute Service(s): None Discharge Planning Patient Goal(s): Be able to go home, General wellness Roy of Choice Explained: Roy of Choice Given: No Reason Not Given: No placements necessary Are you interested in bedside delivery of your medications? No Discharge Planning Participant(s): Patient Patient/Family Comments: Caregiver Assessment: Caregiver is ready, willing and able to meet the patient's needs as recommended by the inter-professional team: No Caregiver needed Transport at Discharge: Transportation Arrangements: Car Date of Trip: 08/15/24 Destination: Home Needs Prior to Discharge: Needs Prior to Discharge: None, Ready for Discharge Post-Acute Discharge Plan: Reviewed and met with the Pt at bedside. Pt is POD2 for Robotic-assisted Laparoscopic Low Anterior Resection. Her diet was advance last evening and she is having bowel function. Pt states she feels good and is hopeful to dc home today. At baseline, Pt is from home with her family. She is independent with all mobility and self care. She drives. Pt denies any psychosocial concerns. She is not active with any supports or services. Has a supportive family. Pt's son in law will transport Pt home home. Pt's dtr has remained at bedside for support. There are no dc concerns. DC plan: DC to home later today. There are no transitional care needs. Pt is home self care. Family to transport. SIGNATURE: DINA Crane PATIENT NAME: Trudy Calle DATE: August 15, 2024 TIME: 9:30 [facility]03-07-2025 NoteHNO ID: [id number] Author: VIBHA FLORES MD Service: General Surgery Author Type: Resident Type: Progress Notes Filed: 08/15/2024 16:44 Note Text: Attestation signed by Vibha Flores MD at 08/15/2024 4:44 PM Attending Note I evaluated the patient and personally participated in the rivera components. I agree with the resident's findings and plan as documented and have discussed the case and management of the patient's care with the resident. Passing flatus and having bowel function. Pain is well-controlled with as needed tramadol. Tolerating a GI soft diet without nausea or vomiting. Stable for discharge home today. Signature: Vibha Flores MD Date: 08/15/2024 Time: 4:43 PM Elective General Surgery (Green Surgery) Progress Note SERVICE DATE: August 15, 2024 Elective General Surgery (Green Surgery) Service Pager: For questions or concerns Mon-Fri 6a-5p please page [phone]. After 5pm and on Weekends and Holidays, please page [phone]. SUBJECTIVE: NAEON. Pt is POD2 for Robotic-assisted Laparoscopic Low Anterior Resection. She states her pain is well controlled. She is ambulating without issue. She is having bowel movements without issues and continues to pass flatus. She is on a GI soft diet without issue. She is urinating without issue. Tolerating diet DIET GASTRO INTESTINAL OBJECTIVE: Vitals: Temp (24hrs), Av.6 ?C (97.9 ?F), Min:36.4 ?C (97.6 ?F), Max:36.8 ?C (98.2 ?F) BP 156/64 Pulse (!) 50 Temp 36.6 ?C (97.9 ?F) (Oral) Resp 13 Ht 170.2 cm (5' 7) Wt 98 kg (216 lb 0.8 oz) SpO2 96% BMI 33.84 kg/m? O2 Therapy: Room Air IANDO: Date 08/14/24699 - 08/15/24 0659 08/15/24699 - 08/16/24 0659 Shift 2588-8333 6026-9499 0768-9872 24 Hour Total 4729-9810 6427-0881 1665-3838 24 Hour Total INTAKE PO 120 240 360 PO 120 240 360 Shift Total 120 240 360 OUTPUT Urine 300 023 588 5440 Void (ml) 150 930 230 5359 Urine Not Saved. 1 x 1 x Output ([REMOVED] Indwelling Urinary Catheter 08/13/24 1530 Esqueda 16 Fr 08/14/24 0901) 150 150 # of BMs Number of BMs 2 x 1 x 3 x Shift Total 300 977 645 0554 Weight (kg) 98 98 98 98 98 98 98 98 MEDICATIONS: Current Facility-Administered Medications Medication Dose Route Frequency levothyroxine 150 mcg (SYNTHROID) 150 mcg ORAL DAILY (6 AM) carvedilol 6.25 mg tab(s) (COREG) 6.25 mg ORAL Daily (3 PM) atorvastatin 40 mg tab(s) (LIPITOR) 40 mg ORAL AT BEDTIME pantoprazole DR 40 mg tab(s) (PROTONIX) 40 mg ORAL DAILY (6 AM) magnesium oxide 400 mg tab(s) (MAG-OX) 400 mg ORAL DAILY ondansetron (PF) 4 mg injection (ZOFRAN) 4 mg INTRAVENOUS q 4 H PRN acetaminophen 975 mg tab(s) (TYLENOL) 975 mg ORAL q 6 H traMADol 50-100 mg tab(s) (ULTRAM) 50-100 mg ORAL q 6 H PRN enoxaparin 40 mg injection (LOVENOX) 40 mg SUBCUTANEOUS DAILY NaCl 0.9% iv flush bag 20 mL INTRAVENOUS PRN alvimopan 12 mg cap(s) (ENTEREG) 12 mg ORAL BID Labs: Recent Labs 08/15/24 0610 08/14/24 0536 NA 138 136 K 3.8 3.8 CHLOR 104 102 CO2 24 23 BUN 25* 22* CREAT 1.12* 1.04* GLUC 93 131* ANION 10 11 CA 8.6 8.5 WBC 9.71 10.38 HB 10.4* 11.2* HCT 31.5* 33.8* PLT 190 211 Physical Exam: GENERAL: resting comfortably, in no acute distress HEENT: normocephalic, atraumatic, EOMI NECK: trachea midline, no JVD LUNGS: Unlabored breathing, equal chest rise bilaterally CARDIAC: Regular rate, warm extremities, good perfusion throughout ABDOMEN: Soft, appropriately-tender, non-distended. No rebound or guarding, surgical sites closed with glue, c/d/I without surrounding erythema or edema. EXTREMITIES: FLORIAN, No deformities, No edema SKIN: Skin color, texture, turgor normal, No rashes or lesions NEURO: AANDOx3, CN II-XII grossly intact PSYCH: normal mood and affect ASSESSMENT AND PLAN: Assessment Active Hospital Problems Diagnosis Date Noted Rectal cancer (HCC) 08/07/2024 Obesity, Class I, BMI 30-34.9 08/11/2024 Assessment: 63 year old female w/ PMHx of HTN, HLD, hypothyroidism, PAD, rectal cancer who is now s/p Robotic-assisted Laparoscopic Low Anterior Resection on 08/13. Hospital Course/Operations/Procedures: 08/13/2024 Procedure(s) with comments: XI ROBOTIC LAPAROSCOPIC RESECTION COLON LOW ANTERIOR W/ COLORECTAL ANASTOMOSIS/ POSSIBLE STOMA/ ERAS/ W BLOCK - ERAS WITH BLOCK SIGMOIDOSCOPY FLEXIBLE Plan: S/P Robotic-assisted Laparoscopic Low Anterior Resection for Rectal Cancer on 08/13 - POD2 progressing appropriately - ERAS, endorsing bowel function, on transitional GI soft diet, tolerating appropriately - Encouraged ambulation and gum chewing - DC entergeg - Continue home Coreg, PPI - LVX for DVT proph - Multimodal pain regimen as prescribed - Zofran for N/V - Appropriate UOP - Potential DC today vs tomorrow Discussed with attending: (more content not included)...[facility]03-06-2025 NoteHNO ID: [id number] Author: VIBHA FLORES MD Service: General Surgery Author Type: Resident Type: Progress Notes Filed: 08/14/2024 13:14 Note Text: Attestation signed by Vibha Flores MD at 08/14/2024 1:14 PM Attending Note I evaluated the patient and personally participated in the rivera components. I agree with the resident's findings and plan as documented and have discussed the case and management of the patient's care with the resident. +flatus, no nausea/vomiting. Tolerating clears. Feels hungry. Pain well controlled except for RLQ port site. Voiding since esqueda was removed. Signature: Vibha Flores MD Date: 08/14/2024 Time: 1:12 PM Elective General Surgery (Green Surgery) Progress Note SERVICE DATE: August 14, 2024 Elective General Surgery (Green Surgery) Service Pager: For questions or concerns Mon-Sun 6a-5p please page [phone]. After 5pm and on Weekends and Holidays, please page [phone]. SUBJECTIVE: NAEON. Pt is POD1 for Robotic-assisted Laparoscopic Low Anterior Resection. She is progressing appropriately. She states her pain is well controlled. She has not ambulated. She still has a Esqueda in with appropriate UOP. She denies any flatus or bowel movements.She is tolerating her CLD w/out N/V. Tolerating diet DIET LIQUID OBJECTIVE: Vitals: Temp (24hrs), Av.7 ?C (98.1 ?F), Min:36.5 ?C (97.7 ?F), Max:37 ?C (98.6 ?F) BP 137/65 Pulse 61 Temp 36.6 ?C (97.9 ?F) (Oral) Resp 18 Ht 170.2 cm (5' 7) Wt 98 kg (216 lb 0.8 oz) SpO2 92% BMI 33.84 kg/m? O2 Therapy: Room Air IANDO: Date 08/13/24699 - 08/14/2465808/14/24699 - 08/15/24 0659 Shift 3878-5066 5644-8908 1614-6693 24 Hour Total 9181-4694 2778-4177 9591-6061 24 Hour Total INTAKE IV 2160 2160 Volume (mL) (BUPivacaine liposome (PF) 20 mL, bupivacaine (PF) 0.25 % (2.5 mg/mL) 30 mL in NaCl 0.9% 100 mL) 60 60 Volume (mL) (cefTRIAXone iv piggyback 2 g in dextrose (iso-osmotic) 50 mL (ROCEPHIN)) 50 50 Volume (mL) (metroNIDAZOLE iv piggyback 500 mg in NaCl (iso-osmotic) 100 mL (FLAGYL)) 100 100 Volume (mL) (lactated ringers iv infusion) 1700 1700 Volume (mL) (lactated ringers iv infusion) 250 250 Shift Total 2160 2160 OUTPUT Urine 50 400 450 OR Urine Output 50 50 Output ( Indwelling Urinary Catheter 08/13/24 1530 Esqueda 16 Fr) 400 400 Blood 30 30 Estimated Blood loss 30 30 Shift Total 80 400 480 Weight (kg) 98 98 98 98 98 98 98 MEDICATIONS: Current Facility-Administered Medications Medication Dose Route Frequency levothyroxine 150 mcg (SYNTHROID) 150 mcg ORAL DAILY (6 AM) pantoprazole DR 40 mg tab(s) (PROTONIX) 40 mg ORAL DAILY (6 AM) magnesium oxide 400 mg tab(s) (MAG-OX) 400 mg ORAL DAILY ondansetron (PF) 4 mg injection (ZOFRAN) 4 mg INTRAVENOUS q 4 H PRN acetaminophen 975 mg tab(s) (TYLENOL) 975 mg ORAL q 6 H traMADol 50-100 mg tab(s) (ULTRAM) 50-100 mg ORAL q 6 H PRN enoxaparin 40 mg injection (LOVENOX) 40 mg SUBCUTANEOUS DAILY NaCl 0.9% iv flush bag 20 mL INTRAVENOUS PRN lactated ringers iv infusion 40 mL/hr INTRAVENOUS CONTINUOUS alvimopan 12 mg cap(s) (ENTEREG) 12 mg ORAL BID Labs: Recent Labs 08/14/24 0536 NA 136 K 3.8 CHLOR 102 CO2 23 BUN 22* CREAT 1.04* GLUC 131* ANION 11 CA 8.5 WBC 10.38 HB 11.2* HCT 33.8* PLT 211 Physical Exam: GENERAL: resting comfortably, in no acute distress HEENT: normocephalic, atraumatic, EOMI NECK: trachea midline, no JVD LUNGS: Unlabored breathing, equal chest rise bilaterally CARDIAC: Regular rate, warm extremities, good perfusion throughout ABDOMEN: Soft, appropriately-tender, non-distended. No rebound or guarding, surgical sites closed with glue, c/d/I without surrounding erythema or edema. EXTREMITIES: FLORIAN, No deformities, No edema SKIN: Skin color, texture, turgor normal, No rashes or lesions NEURO: AANDOx3, CN II-XII grossly intact PSYCH: normal mood and affect ASSESSMENT AND PLAN: Assessment Active Hospital Problems Diagnosis Date Noted Rectal cancer (HCC) 08/07/2024 Obesity, Class I, BMI 30-34.9 08/11/2024 Assessment: 63 year old female w/ PMHx of HTN, HLD, hypothyroidism, PAD, rectal cancer who is now s/p Robotic-assisted Laparoscopic Low Anterior Resection on 08/13. Hospital Course/Operations/Procedures: 08/13/2024 Procedure(s) with comments: XI ROBOTIC LAPAROSCOPIC RESECTION COLON LOW ANTERIOR W/ COLORECTAL ANASTOMOSIS/ POSSIBLE STOMA/ ERAS/ W BLOCK - ERAS WITH BLOCK SIGMOIDOSCOPY FLEXIBLE Plan: S/P Robotic-assisted Laparoscopic Low Anterior Resection for Rectal Cancer on 08/13 - POD1 progressing appropriately - ERAS, tolerating CLD will advance to FLD, Pt denies bowel function, with resumption will advance to GI soft - Encouraged ambulation and gum chewing - Continue Entereg, DC upon bowel function - (more content not included)...[facility]03-05-2025 Note Ancillary testing for mismatch repair protein has been requested and will be reported when available. Brickmason Helper slides were reviewed in consultation with Dr. Julian Carrera who concurs.[facility] HospitalComment on above: Order Comment: Specimen Type: TISSUE SPECIMENOrdering Facility: [facility] Address: [address] [place], [place] [address]Performed By: #### [id number] ####[facility] LABORATORYCLIA [id number] [address] OF [id number] NoteHNO ID: [id number] Author: YULIANA OGLESBY APRN.TEST CENTER ADMINISTRATOR Service: Nursing Author Type: Nurse Table Games Manager Type: Anesthesia Procedure Notes Filed: 08/13/2024 15:46 Note Text: ANESTHESIOLOGY PROCEDURE NOTE Airway General Information Procedure Start Time/Medication Administration: 08/13/2024 3:13 PM Procedure End Time: 08/13/2024 3:13 PM Patient location during procedure: OR Timeout Performed Pre-procedure: timeout performed Consent Obtained: Yes Patient identity confirmed: arm band Staffing TEST CENTER ADMINISTRATOR: Yuliana Oglesby APRN.TEST CENTER ADMINISTRATOR Performed by: NAKITA Indications and Patient Condition Indications for airway management: anesthesia Preoxygenated: yes anesthesia circuit Patient position: sniffing Method: asleep Cricoid Pressure: No Manual In-Line Stabilization: No Difficult Mask: No Final Airway Details Final airway type: endotracheal airway Final Endotracheal Airway: ETT Cuffed: yes Successful intubation technique: video laryngoscopy Devices used: intubating stylet and Morton Endotracheal tube insertion site: oral Blade: Earl Blade size: #3 ETT size (mm): 7.5 Measured from: lips Measurement (cm): 23 Placement verified by: capnometry Cormack-Lehane Classification: grade I - full view of glottis Number of attempts at approach: 1 SIGNATURE: Yuliana Oglesby APRN.CRNA PATIENT NAME: Trudy Calle DATE: August 13, 2024 TIME: 3:46 PM CSN: [id number] Light Acadia Hospital03-05-2025 NoteHNO ID: [id number] Author: MERLIN ESQUIVEL MD Service: Anesthesiology Author Type: Physician Type: Anesthesia Procedure Notes Filed: 08/13/2024 15:27 Note Text: ANESTHESIOLOGY PROCEDURE NOTE Peripheral Nerve Block General Information Procedure Start Time/Medication Administration: 08/13/2024 3:15 PM Procedure End time: 08/13/2024 3:26 PM Patient location during procedure: OR Timeout Performed Pre-procedure: timeout performed Consent Obtained: Yes Patient identity confirmed: arm band Reason for block: post-op pain management/at surgeon's request Staffing Anesthesiologist: Merlin Esquivel MD Performed by: anesthesiologist Preparation Sterility Preparation: hand hygiene performed prior to procedure, surgical cap used, mask used, skin prep agent completely dried prior to procedure Site Prep: Chloraprep Pre-Procedure Neuro Exam Location: ABDOMEN Sensory: intact Motor: intact Procedure Details Patient Position: supine Monitoring: Pulse OX, EKG and NIBP Block Type Trunk: rectus sheath block and TAP block Laterality: bilateral Injection Technique: single-shot Ultrasound Guided: Yes Image in Chart: no Local Infiltration: Yes Needle Needle Type: echogenic Needle Gauge: 21 G Needle Length: 110 mm Needle Localization: anatomical landmarks and ultrasound Test Dose Response: negative test dose Assessment Injection assessment: negative aspiration, incremental injection and local visualized surrounding nerve on ultrasound SIGNATURE: Merlin Esquivel MD PATIENT NAME: Trudy Calle DATE: August 13, 2024 TIME: 3:26 PM CSN: [id number] Light Acadia Hospital02-27-2025 NoteHNO ID: [id number] Author: OSMEL MAYES APRN.FLAKO Service: ? Author Type: Nurse Practitioner Type: Progress Notes Filed: 08/07/2024 15:04 Note Text: CC AWILDA Please review with anesthesia. Patient on plavix for what she states blood clot in groin. I called and reviewed last office note from PCP. Unclear on exact reason for plavix. Does anesthesia want any optimization. Pre-op exam see note for medical conditions which may affect francis-operative course that were addressed at today's visit. Rectal cancer (HCC) Surgery scheduled 08/13/2024 Hyperlipidemia Statin-instructed to continue perioperatively Hypertension Carvedilol-instructed to take DOS HCTZ-instructed to take DOS Losartan-instructed to hold DOS Hypothyroidism Levothyroxine 150 mcg-instructed to take DOS Managed per PCP No labs in epic PAD (peripheral artery disease) (HCC) Does not follow with vascular any longer. She follows with PCP. Plavix-instructed to get pre op instructions from surgeon and prescribing physician. Blockage in groin per patient No stent per patient Nicotine use 50 pack years-currently smoking 3/4 PPD Encouraged to cut back prior to surgery and [facility] of Present illness Narrative* Osmel Mayes APRN.LEAVE MANAGER - 08/07/2024 3:02 PM EST CC AWILDA Please review with anesthesia. Patient on plavix for what she states blood clot in groin. I called and reviewed last office note from PCP. Unclear on exact reason for plavix. Does anesthesia want anyoptimization. Pre-op exam see note for medical conditions which may affect francis-operative course that were addressed at today's visit. Rectal cancer (HCC) Surgery scheduled 08/13/2024 Hyperlipidemia Statin-instructed to continue perioperatively Hypertension Carvedilol-instructed to take DOS HCTZ-instructed to take DOS Losartan-instructed to hold DOS Hypothyroidism Levothyroxine 150 mcg-instructed to take DOS Managed per PCP No labs in epic PAD (peripheral artery disease) (HCC) Does not follow with vascular any longer. She follows with PCP. Plavix-instructed to get pre op instructions from surgeon and prescribing physician. Blockage in groin per patient No stent per patient Nicotine use 50 pack years-currently smoking 3/4 PPD Encouraged to cut back prior to surgery and avoid morning of surgery [facility] Inst[facility]* Patient Instructions* Osmel Mayes APRN.CNP - 08/07/2024 1:56 PM EST PATIENT PREOPERATIVE INSTRUCTIONS Vibha Flores MD has scheduled you for your procedure at this surgery center: [facility]: [phone], [address] [id number] Please read below carefully for your personalized instructions. Date of Surgery:08/13/2024 Arrival Time for Surgery: Your surgeon's office will provide you with your arrival time for surgery if they have not done so already. If you do not have your arrival time for surgery by the afternoon the day before your surgery you can call the surgeon's office. If you are scheduled for a Sunday surgery you can call the Sunday before. -Please be aware that emergency situations arise, which may delay or change your surgical time. If this happens, your surgeon's office will notify you as soon as possible and regret any inconvenience. Dietary Restrictions: Please follow KELSEY ALONSO instructions Medications: Pre Surgery Med Instructions Medication instructions atorvastatin (LIPITOR) 20 mg tablet Take morning of surgery with sip of water, no other fluids carvedilol (COREG) 6.25 mg tablet Take morning of surgery with sip of water, no other fluids clopidogrel (PLAVIX) 75 mg tablet Please get pre op instructions from surgoeon and prescribing physician hydroCHLOROthiazide 25 mg tablet Take morning of surgery with sip of water, no other fluids levothyroxine 150 mcg cap Take morning of surgery with sip of water, no other fluids losartan (COZAAR) 100 mg tablet Continue until night before surgery Blood pressure medications See med list for instructions Take beta jill day of surgery Do not take SARKIS or ARB medications day of surgery Weight loss medications Sympathomimetics such as Adipex-P (Phentermine): Stop 4 days before surgery. Contrave (Naltrexone/Bupropion) Hold 2-3 days. Qsymia (Phentermine/Topiramate - Please contact your prescribing provider for Pre op directions. ( depending on the patients dose this medication may need tapered off. They should get pre op directions from their prescribing provider.) GLP-1 Agonists (oral and injectables) Hold 7 days. Blood Thinning Medications: - Stop NSAIDS (Ibuprofen, Advil, Aleve, Motrin, Celebrex, Mobic, etc.) 7 days before surgery, as directed by your surgeon. - You may take Tylenol (Acetaminophen) or any of your current prescribed pain medications that do not contain aspirin or NSAIDS as needed. - If you take any of the following blood thinners, please contact your surgeon and the physician who prescribes it for you in order to get perioperative instructions as soon as possible Blood thinners: Aspirin,Coumadin, Plavix, Eliquis, Pradaxa, Xarelto, Lovenox, Brilinta, Effient, Savaysa, etc. Supplements - Stop Vitamin E, fish oil, Ginko, [place]'s Wort, flax seed oil, multivitamins, CBD oil, marijuana and other over the counter herbals and dietary supplements 7 days before surgery. This would not apply to cancer patients who are prescribed Marinol or any other prescription form of marijuana or CBD. If you are taking Phentermine please hold 4 days prior to surgery. Pain medications Approved pain medications can be taken the morning of surgery with a sip of water. If you start any new medications after today's visit, please contact the surgeon's office. Important Reminders: - If you use CPAP/BIPAP, bring the machine with you to the hospital if you are scheduled to stay over night. - If you are prescribed inhalers for breathing, continue using them AND bring them to the surgery center. - Candy, mints, gum and tobacco products are NOT permitted the morning of surgery. - Hearing aids, dentures and glasses may be worn the morning of surgery. - NO jewelry, body piercings, makeup, hairpins or contacts are to be worn the day of surgery. - NO lotion, creams, powders or deodorants on the skin the day of surgery - You will need to have someone else (Family or friend) drive you home once discharged from the hospital. You cannot take a cab or Uber. You are not allowed to drive yourself home after surgery. -You will need an adult(over the age of 18) to stay with you for the first 24 hours post surgery oryour surgery may be cancelled. Please speak with your surgeon if this is an issue. Surgical scrub given day of PST per KELSEY ALONSO . If you develop symptoms such as a fever, cold, or flu, or have other changes to your health within TWO DAYS of scheduled surgery or the morning of surgery, please contact the surgery center above. Personal Belongings: - Leave ALL valuables and money at home or with family members. - You will need a form of ID and insurance card to check in the morning of surgery. - You will have to wear a hospital gown during your stay but if you wish to bring undergarments forafter surgery you may. -If you do not have a copy of advance directives on file with us, please bring a copy with you on the day of surgery. If you already have an Advance Directive, please fax a copy to [phone] or email to for it to be added to your chart. If you do not have an Advance Directive, you can find the appropriate form and more information at [email or web address]. We recommend that youcomplete the Advance Directive form found on the website and bring it with you the day of your surgery. It can be witnessed and scanned into your chart that day. Please note-you should have a 72-hour period between getting your vaccine and date of surgery - If you have a stimulator, implant or pump that requires a remote please bring the remote with youday of surgery Osmel Mayes APRN.FLAKO documented in [facility] History and physical note * Osmel Mayes APRN.CNP - 08/07/2024 1:40 PM EST Images from the original note were not included. [facility] HISTORY AND PHYSICAL EXAMINATION SERVICE DATE: 08/07/2024 SERVICE TIME: 2:05 PM PRIMARY CARE PHYSICIAN: Antoni Slaughter MD Assessment Patient has the following medical conditions which may affect francis-operative course: Pre-op exam see note for medical conditions which may affect francis-operative course that were addressed at today's visit. Rectal cancer (HCC) Surgery scheduled 08/13/2024 Hyperlipidemia Statin-instructed to continue perioperatively Hypertension Carvedilol-instructed to take DOS HCTZ-instructed to take DOS Losartan-instructed to hold DOS Hypothyroidism Levothyroxine 150 mcg-instructed to take DOS Managed per PCP No labs in epic PAD (peripheral artery disease) (HCC) Does not follow with vascular any longer. She follows with PCP. Plavix-instructed to get pre op instructions from surgeon and prescribing physician. Blockage in groin per patient No stent per patient Nicotine use 50 pack years-currently smoking 3/4 PPD Encouraged to cut back prior to surgery and avoid morning of surgery ANESTHESIA FINDINGS: Intubation History: No prior intubation Significant Anesthesia Considerations: none Airway History: No prior intubation Herring Activity Status Index: METS: Climb a flight of stairs or walk up a hill (5.50 METs) DASI Score: 5.5 Patient denies any chest pain or undue shortness of breath with the above physical activity. STOP-Bang Score: STOP-Bang Score: 0 ARISCAT Score: Age: 51-80 Preoperative SpO2: >=96% Respiratory infection in the last month: No Preoperative anemia: No Surgical incision: upper abdominal Duration of surgery: >3 hrs Emergency procedure: No ARISCAT Score: 41 I - PHYSICAL EVALUATION AIRWAY Patient intubated: No. DENTAL Dentures, upper: complete. Dentures, lower: complete. II - ANESTHESIA PLAN Anesthetic Plan: general Beta Jill Monitoring Plan Post Procedure Analgesic Plan Prepared for Surgery: CONSULTS: The following consults have been initiated at this time: anesthesia. Planned Anesthetic: general The Following Tests/Procedures Have Been Initiated: Orders Placed This Encounter CBC Standing Status: Future Expected Date: 08/07/2024 Expiration Date: 11/06/2024 BASIC METABOLIC PNL Standing Status: Future Expected Date: 08/07/2024 Expiration Date: 11/06/2024 Confirm Blood Type Standing Status: Future Expected Date: 08/07/2024 Expiration Date: 11/06/2024 Did Blood Bank direct you to place this order:: No - Presurgical Workflow Type and Screen, 30 day Standing Status: Future Expected Date: 08/07/2024 Expiration Date: 11/06/2024 Hospital of Planned Surgery or Procedure:: [facility] Status of surgery/procedure:: Scheduled Date of surgery/procedure:: 08/13/2024 levothyroxine 150 mcg cap Sig: Take 150 mcg by mouth daily before breakfast. clopidogrel (PLAVIX) 75 mg tablet Sig: Take 75 mg by mouth once daily. losartan (COZAAR) 100 mg tablet Sig: Take 100 mg by mouth once daily. hydroCHLOROthiazide 25 mg tablet Sig: Take 25 mg by mouth once daily. REASON FOR VISIT: Trudy Calle is a 63 year old female who is scheduled for Procedure(s) with comments: XI ROBOTIC LAPAROSCOPIC RESECTION COLON LOW ANTERIOR W/ COLORECTAL ANASTOMOSIS/ POSSIBLE STOMA/ ERAS/ W BLOCK (N/A) - ERAS WITH BLOCK at the request of Vibha Graham MD for routine H&P. Myfinal recommendation will be communicated back to the requesting physician by way of shared medicalrecord or letter. Subjective The patient has the following: COVID-19 Immunization Status Current Care Gaps Covid-19 Vaccine (2023- season) Never done No completion, postpone, frequency change, or communication history exists for this topic. CHIEF COMPLAINT: The reason for this visit is to perform a comprehensive review of the patient's past medical history, assess their current health status and obtain any additional testing required based on anesthesia guidelines. We will also identify any potential anesthesia problems or contraindications to the planned procedure. HPI: Patient is a 63 year old female who presents for pre surgical testing. She had colonoscopy on 06/26/2024 for constipation and rectal bleeding. Mass was seen and biopsy demonstrated invasive adenocarcinoma. She has small amount of blood in stool . Denies abdominal pain, N/V. After discussion with the surgeon patient agrees to surgical intervention. REVIEW OF SYSTEMS: General: Negative for: unintentional weight change, malaise and fever. Neurological: Negative for: headaches, seizures and strokes. Respiratory: Positive for: tobacco use. Negative for: asthma, COPD, pneumonia within 6 weeks, URI < 2 weeks and obstructive sleep apnea. Cardiovascular: Positive for: hyperlipidemia, hypertension and PVD Negative for: atrial fibrillation, CAD, chest pain, CHF and DVT/PE. GI: See HPI. Positive for: colon cancer Negative for: abdominal pain, GERD, nausea and vomiting. : Negative for: dysuria, hematuria and renal failure. ELECTRIC WIRER: Negative for: vaginal bleeding. Endocrine: Positive for: hypothyroidism. Negative for: diabetes mellitus and hyperthyroidism. Hematology: Negative for: anemia, factor V Leiden and von Willebrand disease. Oncology: See HPI. Psych: Negative for: anxiety and depression. Musculoskeletal: Negative for: back pain and joint pain. Skin: Negative for lesions, rash and itching. Implanted Devices: No implanted devices. PAST MEDICAL HISTORY Diagnosis Date Hyperlipidemia Hypertension Hypothyroidism PAD (peripheral artery disease) (HCC) Rectal cancer (HCC) PAST SURGICAL HISTORY Procedure Laterality Date COLONOSCOPY SCREENING 06/26/2024 PAST SURGICAL HISTORY OF teeth removed in early 70's TONSILLECTOMY & ADENOIDECTOMY as a child FAMILY HISTORY Problem Relation Age of Onset Breast Cancer Mother Heart disease Father CABG-in his 60's Social History Tobacco Use Smoking status: Every Day Current packs/day: 1.00 Average packs/day: 1 pack/day for 50.2 years (50.2 ttl pk-yrs) Types: Cigarettes Start date: 1974 Smokeless tobacco: Never Tobacco comments: Currently smoking 3/4 PPD Vaping Use Vaping status: Former Quit date: 06/11/2023 Substance Use Topics Alcohol use: Yes Comment: very rarely Drug use: Never Prior to Admission medications as of 08/07/24 1335 Medication Sig Last Dose Taking levothyroxine 150 mcg cap Take 150 mcg by mouth daily before breakfast. Yes clopidogrel (PLAVIX) 75 mg tablet Take 75 mg by mouth once daily. Yes losartan (COZAAR) 100 mg tablet Take 100 mg by mouth once daily. Yes hydroCHLOROthiazide 25 mg tablet Take 25 mg by mouth once daily. Yes atorvastatin (LIPITOR) 20 mg tablet Take 1 tablet by mouth every afternoon. Yes carvedilol (COREG) 6.25 mg tablet Take 1 tablet by mouth every afternoon. Yes metroNIDAZOLE (FLAGYL) 500 mg tablet Take two tabs by mouth at 1pm, 3pm, and 11pm the day prior to surgery. neomycin 500 mg tablet Take two tabs by mouth at 1pm, 3pm, and 11pm the day prior to the surgery. promethazine (PHENERGAN) 25 mg tablet Take 1 tab by mouth every 4 hours as needed for nausea. No medication comments found. ALLERGIES No Known Allergies Objective PHYSICAL EXAM: General: alert and oriented and healthy appearance. Pertinent negatives noted - not distressed. Skin: normal color, no rash or lesions. HEENT: pupils equal round. Cardiovascular: regular rate and rhythm, normal S1 and S2, no rub, murmurs, or gallop. Pulse characterized as regular. Respiratory: normal breath sounds, no wheezes or crackles. No chest wall deformity or tenderness. Abdomen: bowel sounds present. Extremities: no deformity, no edema or tenderness, no joint swelling or clubbing. Neurological: normal cognition and motor skills. Gait normal. No weakness or sensory deficit. PAIN ASSESSMENT: VITALS: BP 120/77 Pulse 72 Temp 98.2 Resp 16 Ht 5' 7 (1.70m) Wt 206 lb (93.4kg) SpO2 97% BMI32.26 kg/(m^2). Diagnostic tests reviewed for today's visit: Lab Value Units Date High Low HB No results within date range. HCT No results within date range. WBC No results within date range. PLT No results within date range. NA No results within date range. K No results within date range. GLUC No results within date range. BUN No results within date range. CREAT No results within date range. PTSEC No results within date range. INR No results within date range. APTT No results within date range. ALT No results within date range. AST No results within date range. TBILI No results within date range. TSH No results within date range. Lab Value Units Date High Low HCGQT No results within date range. UHCG No results within date range. HCG, BODY* No results within date range. Lab Value Units Date High Low ABORHD No results within date range. ABSCREEN No results within date range. No results found for: HBA1C No results found for this or any previous visit (from the past 8760 hours). No results found for this or any previous visit (from the past 37212 hours). The Following Tests/Procedures Have Been Initiated: No labs ordered per surgeon in [facility] CBC BMP T&S Con ABO ordered per GOVERNMENT AFFAIRS RESEARCHER Assessment/Plan Diagnosis: Rectal cancer (HCC) [C20] PLAN Planned Procedure: Procedure(s) with comments: XI ROBOTIC LAPAROSCOPIC RESECTION COLON LOW ANTERIOR W/ COLORECTAL ANASTOMOSIS/ POSSIBLE STOMA/ ERAS/ W BLOCK (N/A) - ERAS WITH BLOCK I spent a total of 40 minutes on the date of the service which included preparing to see the patient, [id number] patient care, completing clinical documentation, obtaining and/or reviewing separately obtained history, performing a medically appropriate examination, counseling and educating the pat ient/family/caregiver, ordering medications, tests, or procedures, and communicating with other HCPs (not separately reported). Instructions Given to Patient: Instructions located in the after visit summary. Patient given verbal and written preop instructions and voices comprehension and compliance. SIGNATURE: Osmel Mayes APRN.CNP PATIENT NAME: Trudy Calle DATE: August 07, 2024 TIME: 12:27 PM PAGER[facility]CONTACT #[facility] History and physical note* Osmel Mayes APRN.CNP - 08/07/2024 1:40 PM EST Images from the original note were not included. [facility] Pre-[facility]est[facility] Consult[facility] HISTORY AND PHYSICAL EXAMINATION SERVICE DATE: 08/07/2024 SERVICE TIME: 2:05 PM PRIMARY CARE PHYSICIAN: Antoni Slaughter MD Assessment Patient has the following medical conditions which may affect francis-operative course: Pre-op exam see note for medical conditions which may affect francis-operative course that were addressed at today's visit. Rectal cancer (HCC) Surgery scheduled 08/13/2024 Hyperlipidemia Statin-instructed to continue perioperatively Hypertension Carvedilol-instructed to take DOS HCTZ-instructed to take DOS Losartan-instructed to hold DOS Hypothyroidism Levothyroxine 150 mcg-instructed to take DOS Managed per PCP No labs in epic PAD (peripheral artery disease) (HCC) Does not follow with vascular any longer. She follows with PCP. Plavix-instructed to get pre op instructions from surgeon and prescribing physician. Blockage in groin per patient No stent per patient Nicotine use 50 pack years-currently smoking 3/4 PPD Encouraged to cut back prior to surgery and avoid morning of surgery ANESTHESIA FINDINGS: Intubation History: No prior intubation Significant Anesthesia Considerations: none Airway History: No prior intubation Herring Activity Status Index: METS: Climb a flight of stairs or walk up a hill (5.50 METs) DASI Score: 5.5 Patient denies any chest pain or undue shortness of breath with the above physical activity. STOP-Bang Score: STOP-Bang Score: 0 ARISCAT Score: Age: 51-80 Preoperative SpO2: >=96% Respiratory infection in the last month: No Preoperative anemia: No Surgical incision: upper abdominal Duration of surgery: >3 hrs Emergency procedure: No ARISCAT Score: 41 I - PHYSICAL EVALUATION AIRWAY Patient intubated: No. DENTAL Dentures, upper: complete. Dentures, lower: complete. II - ANESTHESIA PLAN Anesthetic Plan: general Beta Jill Monitoring Plan Post Procedure Analgesic Plan Prepared for Surgery: CONSULTS: The following consults have been initiated at this time: anesthesia. Planned Anesthetic: general The Following Tests/Procedures Have Been Initiated: Orders Placed This Encounter CBC Standing Status: Future Expected Date: 08/07/2024 Expiration Date: 11/06/2024 BASIC METABOLIC PNL Standing Status: Future Expected Date: 08/07/2024 Expiration Date: 11/06/2024 Confirm Blood Type Standing Status: Future Expected Date: 08/07/2024 Expiration Date: 11/06/2024 Did Blood Bank direct you to place this order:: No - Presurgical Workflow Type and Screen, 30 day Standing Status: Future Expected Date: 08/07/2024 Expiration Date: 11/06/2024 Hospital of Planned Surgery or Procedure:: [place] [facility] Status of surgery/procedure:: Scheduled Date of surgery/procedure:: 08/13/2024 levothyroxine 150 mcg cap Sig: Take 150 mcg by mouth daily before breakfast. clopidogrel (PLAVIX) 75 mg tablet Sig: Take 75 mg by mouth once daily. losartan (COZAAR) 100 mg tablet Sig: Take 100 mg by mouth once daily. hydroCHLOROthiazide 25 mg tablet Sig: Take 25 mg by mouth once daily. REASON FOR VISIT: Trudy Calle is a 63 year old female who is scheduled for Procedure(s) with comments: XI ROBOTIC LAPAROSCOPIC RESECTION COLON LOW ANTERIOR W/ COLORECTAL ANASTOMOSIS/ POSSIBLE STOMA/ ERAS/ W BLOCK (N/A) - ERAS WITH BLOCK at the request of Vibha Graham MD for routine H&P. Myfinal recommendation will be communicated back to the requesting physician by way of shared medicalrecord or letter. Subjective The patient has the following: COVID-19 Immunization Status Current Care Gaps Covid-19 Vaccine ( season) Never done No completion, postpone, frequency change, or communication history exists for this topic. CHIEF COMPLAINT: The reason for this visit is to perform a comprehensive review of the patient's past medical history, assess their current health status and obtain any additional testing required based on anesthesia guidelines. We will also identify any potential anesthesia problems or contraindications to the planned procedure. HPI: Patient is a 63 year old female who presents for pre surgical testing. She had colonoscopy on 06/26/2024 for constipation and rectal bleeding. Mass was seen and biopsy demonstrated invasive adenocarcinoma. She has small amount of blood in stool . Denies abdominal pain, N/V. After discussion with the surgeon patient agrees to surgical intervention. REVIEW OF SYSTEMS: General: Negative for: unintentional weight change, malaise and fever. Neurological: Negative for: headaches, seizures and strokes. Respiratory: Positive for: tobacco use. Negative for: asthma, COPD, pneumonia within 6 weeks, URI < 2 weeks and obstructive sleep apnea. Cardiovascular: Positive for: hyperlipidemia, hypertension and PVD Negative for: atrial fibrillation, CAD, chest pain, CHF and DVT/PE. GI: See HPI. Positive for: colon cancer Negative for: abdominal pain, GERD, nausea and vomiting. : Negative for: dysuria, hematuria and renal failure. ELECTRIC WIRER: Negative for: vaginal bleeding. Endocrine: Positive for: hypothyroidism. Negative for: diabetes mellitus and hyperthyroidism. Hematology: Negative for: anemia, factor V Leiden and von Willebrand disease. Oncology: See HPI. Psych: Negative for: anxiety and depression. Musculoskeletal: Negative for: back pain and joint pain. Skin: Negative for lesions, rash and itching. Implanted Devices: No implanted devices. PAST MEDICAL HISTORY Diagnosis Date Hyperlipidemia Hypertension Hypothyroidism PAD (peripheral artery disease) (HCC) Rectal cancer (HCC) PAST SURGICAL HISTORY Procedure Laterality Date COLONOSCOPY SCREENING 06/26/2024 PAST SURGICAL HISTORY OF teeth removed in early 70's TONSILLECTOMY & ADENOIDECTOMY <AGE 10 as a child FAMILY HISTORY Problem Relation Age of Onset Breast Cancer Mother Heart disease Father CABG-in his 60's Social History Tobacco Use Smoking status: Every Day Current packs/day: 1.00 Average packs/day: 1 pack/day for 50.2 years (50.2 ttl pk-yrs) Types: Cigarettes Start date: 1974 Smokeless tobacco: Never Tobacco comments: Currently smoking 3/4 PPD Vaping Use Vaping status: Former Quit date: 06/11/2023 Substance Use Topics Alcohol use: Yes Comment: very rarely Drug use: Never Prior to Admission medications as of 08/07/24 4855 Medication Sig Last Dose Taking levothyroxine 150 mcg cap Take 150 mcg by mouth daily before breakfast. Yes clopidogrel (PLAVIX) 75 mg tablet Take 75 mg by mouth once daily. Yes losartan (COZAAR) 100 mg tablet Take 100 mg by mouth once daily. Yes hydroCHLOROthiazide 25 mg tablet Take 25 mg by mouth once daily. Yes atorvastatin (LIPITOR) 20 mg tablet Take 1 tablet by mouth every afternoon. Yes carvedilol (COREG) 6.25 mg tablet Take 1 tablet by mouth every afternoon. Yes metroNIDAZOLE (FLAGYL) 500 mg tablet Take two tabs by mouth at 1pm, 3pm, and 11pm the day prior to surgery. neomycin 500 mg tablet Take two tabs by mouth at 1pm, 3pm, and 11pm the day prior to the surgery. promethazine (PHENERGAN) 25 mg tablet Take 1 tab by mouth every 4 hours as needed for nausea. No medication comments found. ALLERGIES No Known Allergies Objective PHYSICAL EXAM: General: alert and oriented and healthy appearance. Pertinent negatives noted - not distressed. Skin: normal color, no rash or lesions. HEENT: pupils equal round. Cardiovascular: regular rate and rhythm, normal S1 and S2, no rub, murmurs, or gallop. Pulse characterized as regular. Respiratory: normal breath sounds, no wheezes or crackles. No chest wall deformity or tenderness. Abdomen: bowel sounds present. Extremities: no deformity, no edema or tenderness, no joint swelling or clubbing. Neurological: normal cognition and motor skills. Gait normal. No weakness or sensory deficit. PAIN ASSESSMENT: VITALS: BP 120/77 Pulse 72 Temp 98.2 Resp 16 Ht 5' 7 (1.70m) Wt 206 lb (93.4kg) SpO2 97% BMI32.26 kg/(m^2). Diagnostic tests reviewed for today's visit: Lab Value Units Date High Low HB No results within date range. HCT No results within date range. WBC No results within date range. PLT No results within date range. NA No results within date range. K No results within date range. GLUC No results within date range. BUN No results within date range. CREAT No results within date range. PTSEC No results within date range. INR No results within date range. APTT No results within date range. ALT No results within date range. AST No results within date range. TBILI No results within date range. TSH No results within date range. Lab Value Units Date High Low HCGQT No results within date range. UHCG No results within date range. HCG, BODY* No results within date range. Lab Value Units Date High Low ABORHD No results within date range. ABSCREEN No results within date range. No results found for: HBA1C No results found for this or any previous visit (from the past 8760 hours). No results found for this or any previous visit (from the past 82272 hours). The Following Tests/Procedures Have Been Initiated: No labs ordered per surgeon in epic CBC BMP T&S Con ABO ordered per GOVERNMENT AFFAIRS RESEARCHER Assessment/Plan Diagnosis: Rectal cancer (HCC) [C20] PLAN Planned Procedure: Procedure(s) with comments: XI ROBOTIC LAPAROSCOPIC RESECTION COLON LOW ANTERIOR W/ COLORECTAL ANASTOMOSIS/ POSSIBLE STOMA/ ERAS/ W BLOCK (N/A) - ERAS WITH BLOCK I spent a total of 40 minutes on the date of the service which included preparing to see the patient, [id number] patient care, completing clinical documentation, obtaining and/or reviewing separately obtained history, performing a medically appropriate examination, counseling and educating the pat ient/family/caregiver, ordering medications, tests, or procedures, and communicating with other HCPs (not separately reported). Instructions Given to Patient: Instructions located in the after visit summary. Patient given verbal and written preop instructions and voices comprehension and compliance. SIGNATURE: Osmel Mayes APRN.CNP PATIENT NAME: Trudy Calle DATE: August 07, 2024 TIME: 12:27 PM PAGER/CONTACT #: documented in [facility] History of Present illness Narrative* Amelia Bhat RN - 08/07/2024 1:00 PM ESTSummary: Stoma marking OSTOMY CARE CONSULT NOTE SERVICE DATE: 08/07/2024 SERVICE TIME: 1:00 PM REASON FOR CONSULT: Stoma marking. TIME SPENT (minutes): 30 Pre-Op Education Patient can state a basic understanding of the disease and plan of surgery resulting in an ostomy. Ostomy type: Possible ileostomy, possible colostomy A description and explanation of the following was provided to the patient: Stoma apperance and function Purpose of the pouching system Postoperative ostomy care per ET/WOC Nurse Postoperative self ostomy care instruction Discharge equipment ordering and support options The following post operative concerns were addressed: Diet Fluid Intake ADL'S Clothing Adjustment Printed Literature specific to ostomy type was provided to the patient: yes The patient or accompanying person can verbalize understanding of the information given in the preoperative instructions: yes Stoma Marking The stoma marking purpose and procedure was explained: yes. The patient verbalized understanding and agrees to the marking: yes. Rectus Muscle borders are located: yes. Abdominal contour evaluation was performed in the sitting position and standing position. The stoma marking was made in RUQ, RLQ, LUQ, LLQ avoiding creases, scars, and midline. Patient is able to see site in the following positions: sitting position and standing position Gideon was made with surgical marker and covered with tegaderm. Patient given extra tegaderm to reinforce as needed. Comments: Due to the shape of the patient's abdomen the right and left stoma markings are very close together, if lower markings were marked lower the ostomy appliance would sit to low on the abdomenand adherence would be compromised so do not recommend stoma be placed lower than the markings. Thank you for including me in the care of this patient. Ostomy care to follow after surgery when consulted. SIGNATURE: EMANUEL Lorenz,RN,CWON PATIENT NAME: Trudy Calle DATE: August 07, 2024 TIME: 1:46 PM CONTACT#: [id number] documented in this encounterS[facility] NoteHNO ID: [id number] Author: AMELIA BHAT RN Service: ? Author Type: Registered Nurse Type: Progress Notes Filed: 08/07/2024 13:53 Note Text: Summary: Stoma marking OSTOMY CARE CONSULT NOTE SERVICE DATE: 08/07/2024 SERVICE TIME: 1:00 PM REASON FOR CONSULT: Stoma marking. TIME SPENT (minutes): 30 Pre-Op Education Patient can state a basic understanding of the disease and plan of surgery resulting in an ostomy. Ostomy type: Possible ileostomy, possible colostomy A description and explanation of the following was provided to the patient: Stoma apperance and function Purpose of the pouching system Postoperative ostomy care per ET/WOC Nurse Postoperative self ostomy care instruction Discharge equipment ordering and support options The following post operative concerns were addressed: Diet Fluid Intake ADL'S Clothing Adjustment Printed Literature specific to ostomy type was provided to the patient: yes The patient or accompanying person can verbalize understanding of the information given in the preoperative instructions: yes Stoma Marking The stoma marking purpose and procedure was explained: yes. The patient verbalized understanding and agrees to the marking: yes. Rectus Muscle borders are located: yes. Abdominal contour evaluation was performed in the sitting position and standing position. The stoma marking was made in RUQ, RLQ, LUQ, LLQ avoiding creases, scars, and midline. Patient is able to see site in the following positions: sitting position and standing position Gideon was made with surgical marker and covered with tegaderm. Patient given extra tegaderm to reinforce as needed. Comments: Due to the shape of the patient's abdomen the right and left stoma markings are very close together, if lower markings were marked lower the ostomy appliance would sit to low on the abdomen and adherence would be compromised so do not recommend stoma be placed lower than the markings. Thank you for including me in the care of this patient. Ostomy care to follow after surgery when consulted. SIGNATURE: EMANUEL Lorenz,RN,CWON PATIENT NAME: Trudy Calle DATE: August 07, 2024 TIME: 1:46 PM CONTACT#: [id number] History of Present illness Narrative* Luis F Hurtado RN - 08/07/2024 12:35 PM EST GENERAL SURGERY/ERAS LIFE ENRICHMENT ASSISTANT PREOPERATIVE EDUCATION Date: 08/07/2024 Time: 12:30 PM Education provide to: patient and sister Lives with: Alone Mobility: Independent ERAS protocol instructions given with good understanding. Written instructions given to patient. Encouraged to call with any questions. SIGNATURE: Luis F Hurtado RN PATIENT NAME: Trudy Calle DATE: August 07, 2024 TIME: 2:22 PM PAGER/CONTACT #: [phone] documented in this encounterShel[facility]02-27-[facility]25 NoteHNO ID: [id number] Author: LUIS F HURTADO RN Service: ? Author Type: Registered Nurse Type: Progress Notes Filed: 08/07/2024 14:23 Note Text: GENERAL SURGERY/ERAS LIFE ENRICHMENT ASSISTANT PREOPERATIVE EDUCATION Date: 08/07/2024 Time: 12:30 PM Education provide to: patient and sister Lives with: Alone Mobility: Independent ERAS protocol instructions given with good understanding. Written instructions given to patient. Encouraged to call with any questions. SIGNATURE: Luis F Hurtado RN PATIENT NAME: Trudy Calle DATE: August 07, 2024 TIME: 2:22 PM PAGER/CONTACT #: [phone]) TRUDY CALLE ([id number]) 1960 F Date Time Provider Department 08/07/24 LUIS F HURTADO [facility] Reason for Visit: Patient Education [91] During your visit today, we recorded the following information about you: Allergies As of Date: 08/07/2024 (No Known Allergies) Date Reviewed: 08/07/2024 Reviewed by: Osmel Mayes APRN.LEAVE MANAGER - Fully Assessed Prescriptions as of 08/07/2024 - levothyroxine 150 mcg cap Take 150 mcg by mouth daily before breakfast. - clopidogrel (PLAVIX) 75 mg tablet Take 75 mg by mouth once daily. - losartan (COZAAR) 100 mg tablet Take 100 mg by mouth once daily. - hydroCHLOROthiazide 25 mg tablet Take 25 mg by mouth once daily. - metroNIDAZOLE (FLAGYL) 500 mg tablet Take two tabs by mouth at 1pm, 3pm, and 11pm the day prior to surgery. - neomycin 500 mg tablet Take two tabs by mouth at 1pm, 3pm, and 11pm the day prior to the surgery. - promethazine (PHENERGAN) 25 mg tablet Take 1 tab by mouth every 4 hours as needed for nausea. - atorvastatin (LIPITOR) 20 mg tablet Take 1 tablet by mouth every afternoon. - carvedilol (COREG) 6.25 mg tablet Take 1 tablet by mouth every afternoon. Encounter Status:Closed by LUIS F HURTADO on 08/07/24[facility] 08-04-2024 Evaluation note* Diagnosis Onset Date Resolution Status Admit Date Colorectal cancer acute 2024 8:00am Hyperlipidemia acute July 132024 8:00am Hypertension chronic July 8:00am Hypothyroidism chronic July 132024 8:00am Colorectal cancer acute August 102024 1:03pm Regional lymph node metastas is present acute September 04, 2024 1:03pm Colorectal cancer acute August 112024 8:42am Colorectal cancer acute September 092024 2:56pm Encounter for education acute A pril 2024 2:56pm Regional lymph node metastas is present acute September 09, 2024 2:56pm Colorectal cancer acute September 092024 8:37am Regional lymph node metastas is present acute September 22, 2024 8:37am CINV (chemotherapy-induced nausea and vomiting) acute September 29, 2024 9:09am Colorectal cancer acute September 102024 9:09am Regional lymph node metastas is present acute September 29, 2024 9:09am Colorectal cancer acute September 102024 8:38am Regional lymph node metastas is present acute October 06, 2024 8:38am Colorectal cancer acute October 8:38am Encounter for chemotherapy management acute October 20, 2024 8 :38am Regional lymph node metastas is present acute October 20, 2024 8 :38am Actinic keratosis acute October 8:43am Colorectal cancer acute October 8:43am Encounter for chemotherapy management acute November 04, 2024 8 :43am Regional lymph node metastas is present acute November 04, 2024 8 :43am [facility] Work Phone: 1(970) 951-838402-24-2025 Evaluation note* Diagnosis Onset Date Resolution Status Admit Date Colorectal cancer chronic 2024 8:00am Hyperlipidemia chronic July 132024 8:00am Hypertension chronic July 8:00am Hypothyroidism chronic July 132024 8:00am Regional lymph node metastas is present acute September 04, 2024 1:03pm Colorectal cancer chronic August 102024 1:03pm Colorectal cancer chronic August 112024 8:42am Encounter for education acute A pril 2024 2:56pm Regional lymph node metastas is present acute September 09, 2024 2:56pm Colorectal cancer chronic September 092024 2:56pm Regional lymph node metastas is present acute September 22, 2024 8:37am Colorectal cancer chronic September 092024 8:37am CINV (chemotherapy-induced nausea and vomiting) acute September 29, 2024 9:09am Regional lymph node metastas is present acute September 29, 2024 9:09am Colorectal cancer chronic September 102024 9:09am Regional lymph node metastas is present acute October 06, 2024 8:38am Colorectal cancer chronic September 102024 8:38am Encounter for chemotherapy management acute October 20, 2024 8 :38am Regional lymph node metastas is present acute October 20, 2024 8 :38am Colorectal cancer chronic October 8:38am Actinic keratosis acute October 8:43am Encounter for chemotherapy management acute November 04, 2024 8 :43am Regional lymph node metastas is present acute November 04, 2024 8 :43am Colorectal cancer chronic October 8:43am Colorectal cancer chronic October 9:07am Hyperlipidemia chronic 2024 9:07am Hypertension chronic November 05, 9:07am Hypothyroidism chronic 2024 9:07am Actinic keratosis acute November 8:39am Encounter for chemotherapy management acute November 17, 2024 8 :39am Regional lymph node metastas is present acute November 17, 2024 8 :39am Colorectal cancer chronic November 8:39am [facility] Work Phone: 1(626) 130-995602-24-2025 Evaluation note* Diagnosis Onset Date Resolution Status Admit Date Colorectal cancer chronic 2024 8:00am Hyperlipidemia chronic July 132024 8:00am Hypertension chronic July 8:00am Hypothyroidism chronic July 132024 8:00am Regional lymph node metastas is present acute September 04, 2024 1:03pm Colorectal cancer chronic August 102024 1:03pm Colorectal cancer chronic August 112024 8:42am Encounter for education acute A pril 2024 2:56pm Regional lymph node metastas is present acute September 09, 2024 2:56pm Colorectal cancer chronic September 092024 2:56pm Regional lymph node metastas is present acute September 22, 2024 8:37am Colorectal cancer chronic September 092024 8:37am CINV (chemotherapy-induced nausea and vomiting) acute September 29, 2024 9:09am Regional lymph node metastas is present acute September 29, 2024 9:09am Colorectal cancer chronic September 102024 9:09am Regional lymph node metastas is present acute October 06, 2024 8:38am Colorectal cancer chronic September 102024 8:38am Encounter for chemotherapy management acute October 20, 2024 8 :38am Regional lymph node metastas is present acute October 20, 2024 8 :38am Colorectal cancer chronic October 8:38am Actinic keratosis acute October 8:43am Encounter for chemotherapy management acute November 04, 2024 8 :43am Regional lymph node metastas is present acute November 04, 2024 8 :43am Colorectal cancer chronic October 8:43am Colorectal cancer chronic October 9:07am Hyperlipidemia chronic 2024 9:07am Hypertension chronic November 05 9:07am Hypothyroidism chronic 2024 9:07am Actinic keratosis acute November 8:39am Encounter for chemotherapy management acute November 17, 2024 8 :39am Regional lymph node metastas is present acute November 17, 2024 8 :39am Colorectal cancer chronic November 8:39am Regional lymph node metastas is present acute December 01, 2024 8:36am Colorectal cancer chronic December 012024 8:36am [facility] Work Phone: 1(309) 804-539602-21-2025 NoteHNO ID: [id number] Author: VIBHA FLORES MD Service: ? Author Type: Physician Type: Progress Notes Filed: 08/01/2024 12:43 Note Text: Vibha Flores M.D. Colon AND Rectal Surgery [address] [facility], [address] [place] [id number] CC: rectosigmoid cancer HPI: Trudy Calle is a 63 year old White female who was initially evaluated by gastroenterology for constipation and rectal bleeding. Colonoscopy on 06/26/2024 demonstrated an ulcerated partially obstructing large mass within the rectosigmoid. The scope was not advanced past the sigmoid due to poor prep. Biopsies returned with invasive adenocarcinoma. I have since reviewed her pelvic MRI as well as staging CTs. There is no evidence of metastatic disease and the lesion appears to be above the peritoneal reflection on the MRI. As this is upper rectal/rectosigmoid lesion, would proceed with upfront surgery. Patient presents today to discuss resection. Patient is otherwise doing well. No nausea/vomiting. No abdominal pain. Taking miralax daily and bowel movements are still a little difficulty but improved. Review of Systems: For pertinent positives and negatives, please see HPI PAST MEDICAL HISTORY Diagnosis Date Hyperlipidemia Hypertension Hypothyroidism No past surgical history on file. Social History Tobacco Use Smoking status: Every Day Current packs/day: 1.00 Types: Cigarettes Smokeless tobacco: Current No family history on file. The ROS, medical, surgical, family, and social history were reviewed by Vibha Flores MD ALLERGIES No Known Allergies Current Outpatient Medications Medication Sig atorvastatin (LIPITOR) 20 mg tablet Take 1 tablet by mouth every afternoon. carvedilol (COREG) 6.25 mg tablet Take 1 tablet by mouth every afternoon. No current facility-administered medications for this visit. Vitals: BP 132/85 (BP Site: Right Arm, BP Cuff Size: Large Adult) Pulse 71 Ht 170.2 cm (5' 7) Wt 95.3 kg (210 lb) BMI 32.89 kg/m? BMI 32.89 kg/(m2) Physical Exam Labs: No results found for: HB, HCT, WBC, PLT No results found for: CREAT No results found for: AST No results found for: ALT No results found for: BLSP, BLCUL, TBILI, CBILI, ABORHD, ABSCREEN, WBC, RBC, BILIT%DIG,%DBS Imagin07/04/24 MRI Pelvis Circumferential 2.16 cm fungating mass invading all 3 layers of the wall of the distal sigmoid colon and rectosigmoid junction located 11cm above the anal opening. There is extension of tumor through the outer covering of the distal sigmoid colon. Beneath the annular mass, there is a short segment of stenosis. There is thickening and edema and hyperenhancement of the inner mucosa and muscular portion of the wall of the entire rectum down to the anus most likely due to desmoplastic reaction. T3 tumor. No pelvic lymphadenopathy. 07/17/24 CT CAP No evidence of metastatic disease Hepatomegaly with fatty infiltration Umbilical hernia containing fat Pathology: Invasive adenocarcinoma Assessment/Plan: 1. Rectal cancer (HCC) (Primary) Plan for robot-assisted low anterior resection with possible ileostomy on 08/13. Discussed with patient that given the upper rectal location of her cancer, I would recommend pursuing upfront surgery since she has no evidence of metastatic disease and there does not appear to be any local invasion of adjacent structures. Since she is not undergoing pelvic radiation, we may be able to perform her surgery without a diverting ileostomy. Will still have patient marked for a stoma in the event we need to divert. Patient understands that this is a risk of the surgery. Other risks include pain, injury to adjacent structures, bleeding, and anastomotic leak. Patient is a current pack per day smoker. We discussed that she is at higher risk for wound complications and leak since she is a heavy smoker. Patient understands and agrees to proceed with surgery. She understands that pending final pathology, she may need adjuvant chemotherapy. Will send to Dr. Mooney post-op if indicated. - metroNIDAZOLE (FLAGYL) 500 mg tablet; Take two tabs by mouth at 1pm, 3pm, and 11pm the day prior to surgery. Dispense: 6 tablet; Refill: 0 - neomycin 500 mg tablet; Take two tabs by mouth at 1pm, 3pm, and 11pm the day prior to the surgery. Dispense: 6 tablet; Refill: 0 - promethazine (PHENERGAN) 25 mg tablet; Take 1 tab by mouth every 4 hours as needed for nausea. Dispense: 5 tablet; Refill: 0 Vibha Flores M.D. Please Note: This office note has been created using [employer], a speech recognition software program, and may contain errors including punctuation, grammar, spelling, gender, and inappropriate words or phrases that pertain to the sytem.[facility]02-21-2025 History of Present illness Narrative* Vibha Flores MD - 08/01/2024 10:55 AM EST Images from the original note were not included. Vibha Flores M.D. Colon & Rectal Surgery [address] [facility], [address] [place] [id number] CC: rectosigmoid cancer HPI: Trudy Calle is a 63 year old White female who was initially evaluated by gastroenterology for constipation and rectal bleeding. Colonoscopy on 06/26/2024 demonstrated an ulcerated partially obstructing large mass within the rectosigmoid. The scope was not advanced past the sigmoid due to poor prep. Biopsies returned with invasive adenocarcinoma. I have since reviewed her pelvic MRI as well as staging CTs. There is no evidence of metastatic disease and the lesion appears to be above the peritoneal reflection on the MRI. As this is upper rectal/rectosigmoid lesion, would proceed with upfrontsurgery. Patient presents today to discuss resection. Patient is otherwise doing well. No nausea/vomiting. No abdominal pain. Taking miralax daily and bowel movements are still a little difficulty but improved. Review of Systems: For pertinent positives and negatives, please see HPI PAST MEDICAL HISTORY Diagnosis Date Hyperlipidemia Hypertension Hypothyroidism No past surgical history on file. Social History Tobacco Use Smoking status: Every Day Current packs/day: 1.00 Types: Cigarettes Smokeless tobacco: Current No family history on file. The ROS, medical, surgical, family, and social history were reviewed by Vibha Flores MD ALLERGIES No Known Allergies Current Outpatient Medications Medication Sig atorvastatin (LIPITOR) 20 mg tablet Take 1 tablet by mouth every afternoon. carvedilol (COREG) 6.25 mg tablet Take 1 tablet by mouth every afternoon. No current facility-administered medications for this visit. Vitals: BP 132/85 (BP Site: Right Arm, BP Cuff Size: Large Adult) Pulse 71 Ht 170.2 cm (5' 7) Wt 95.3 kg (210 lb) BMI 32.89 kg/m BMI 32.89 kg/(m^2) Physical Exam Labs: No results found for: HB, HCT, WBC, PLT No results found for: CREAT No results found for: AST No results found for: ALT No results found for: BLSP, BLCUL, TBILI, CBILI, ABORHD, ABSCREEN, WBC, RBC, BILIT%DIG,%DBS Imagin07/04/24 MRI Pelvis Circumferential 2.16 cm fungating mass invading all 3 layers of the wall of the distal sigmoid colon and rectosigmoid junction located 11cm above the anal opening. There is extension of tumor throughthe outer covering of the distal sigmoid colon. Beneath the annular mass, there is a short segment of stenosis. There is thickening and edema and hyperenhancement of the inner mucosa and muscular portion of the wall of the entire rectum down to the anus most likely due to desmoplastic reaction. T3 tumor. No pelvic lymphadenopathy. 07/17/24 CT CAP No evidence of metastatic disease Hepatomegaly with fatty infiltration Umbilical hernia containing fat Pathology: Invasive adenocarcinoma Assessment/Plan: 1. Rectal cancer (HCC) (Primary) Plan for robot-assisted low anterior resection with possible ileostomy on 08/13. Discussed with patient that given the upper rectal location of her cancer, I would recommend pursuing upfront surgery since she has no evidence of metastatic disease and there does not appear to be any local invasion of adjacent structures. Since she is not undergoing pelvic radiation, we may be able to perform her surgery without a diverting ileostomy. Will still have patient marked for a stoma in the event we need to divert. Patient understands that this is a risk of the surgery. Other risks include pain, injury to adjacent structures, bleeding, and anastomotic leak. Patient is a current pack per day smoker. Wediscussed that she is at higher risk for wound complications and leak since she is a heavy smoker. Patient understands and agrees to proceed with surgery. She understands that pending final pathology, she may need adjuvant chemotherapy. Will send to Dr. Mooney post-op if indicated. - metroNIDAZOLE (FLAGYL) 500 mg tablet; Take two tabs by mouth at 1pm, 3pm, and 11pm the day prior to surgery. Dispense: 6 tablet; Refill: 0 - neomycin 500 mg tablet; Take two tabs by mouth at 1pm, 3pm, and 11pm the day prior to the surgery. Dispense: 6 tablet; Refill: 0 - promethazine (PHENERGAN) 25 mg tablet; Take 1 tab by mouth every 4 hours as needed for nausea. Dispense: 5 tablet; Refill: 0 Vibha Flores M.D. Please Note: This office note has been created using Bluelock, a speech recognition software program, and may contain errors including punctuation, grammar, spelling, gender, and inappropriate words or phrases that pertain to the sytem. [facility] NoteHNO ID: [id number] Author: VIBHA FLORES MD Service: ? Author Type: Physician Type: Progress Notes Filed: 07/18/2024 12:37 Note Text: Vibha Flores M.D. Colon AND Rectal Surgery 1 [facility], [address] [place] [id number] CC: rectal cancer HPI: Trudy Calle is a 63 year old White female who was referred by MERON Page with [facility] for newly diagnosed rectal adenocarcinoma. My final recommendations will be communicated back to the requesting physician by way of shared Medical record or letter to requesting physician via electronic or US mail. PCP: Dr. Antoni Slaughter Patient was initially evaluated by gastroenterology for constipation and rectal bleeding. She underwent a colonoscopy on 06/26/2024 that demonstrated an ulcerated partially obstructing large mass within the rectum that was circumferential. The scope not advanced past the sigmoid colon due to stool burden and poor prep. Multiple biopsies were taken of this lesion and final pathology returned with invasive adenocarcinoma. MSI testing is still pending. This was patient's first colonoscopy. Currently the patient feels well. She denies any abdominal or rectal pain. She does have some constipation and is taking MiraLAX daily. No nausea or vomiting. No unintentional weight loss. She denies any blood in her stool. There is no family history of colon or rectal cancer as far she knows. Past medical history significant for HTN, per patient right groin vascular blockage for which she is on plavix, HLD, hypothyroidism. Review of Systems: For pertinent positives and negatives, please see HPI PAST MEDICAL HISTORY Diagnosis Date Hyperlipidemia Hypertension Hypothyroidism No past surgical history on file. Social History Tobacco Use Smoking status: Every Day Types: Cigarettes Smokeless tobacco: Current No family history on file. The ROS, medical, surgical, family, and social history were reviewed by Vibha Flores MD ALLERGIES No Known Allergies Current Outpatient Medications Medication Sig atorvastatin (LIPITOR) 20 mg tablet Take 1 tablet by mouth every afternoon. carvedilol (COREG) 6.25 mg tablet Take 1 tablet by mouth every afternoon. No current facility-administered medications for this visit. Vitals: BP 112/73 Pulse 76 Ht 170.2 cm (5' 7) Wt 95.2 kg (209 lb 14.4 oz) BMI 32.87 kg/m? BMI 32.87 kg/(m2) Physical Exam Constitutional: General: She is not in acute distress. Appearance: Normal appearance. She is not ill-appearing. Cardiovascular: Rate and Rhythm: Normal rate and regular rhythm. Heart sounds: Normal heart sounds. No murmur heard. No friction rub. No gallop. Pulmonary: Effort: Pulmonary effort is normal. No respiratory distress. Breath sounds: Normal breath sounds. No wheezing or rales. Abdominal: General: There is no distension. Palpations: Abdomen is soft. There is no mass. Tenderness: There is no abdominal tenderness. There is no guarding or rebound. Genitourinary: Comments: Patient was examined in knee-chest with a tent assembler present. Externally there were small skin tags. On digital rectal exam, there was no mass that was palpable, no lesions noted, no blood present. Musculoskeletal: General: No deformity. Normal range of motion. Cervical back: Normal range of motion and neck supple. Lymphadenopathy: Cervical: No cervical adenopathy. Skin: General: Skin is warm and dry. Findings: No rash. Neurological: Mental Status: She is alert and oriented to person, place, and time. Gait: Gait is intact. Psychiatric: Mood and Affect: Mood and affect normal. Judgment: Judgment normal. Assessment/Plan: 1. Rectal cancer (HCC) Patient with a newly diagnosed rectal cancer per colonoscopy report however the pathology specimen is labeled sigmoid so it is unclear the exact location of this tumor. Per patient she had CTs as well as MRIs done for staging of her rectal cancer at [facility]. We will call to obtain the results of her imaging. We will also get the images uploaded to our system. Patient also states that she had a CEA drawn at [facility] as well. We also will request the final pathology to obtain MSI status on her tumor. Not clinically obstructed at this time. Encouraged her to continue MiraLAX. Pending the results of her imaging and the ultimate location of her tumor, if her cancer truly is in the rectum and there is no evidence of metastatic disease, she would likely need DILIA. If the cancer is more proximal and again there is no evidence of metastatic disease, can likely proceed directly to surgery. Referrals placed to medical and radiation oncology. RTC 3 months. Vibha Flores M.D. Please Note: This office note has been created using Bluelock, a speech recognition software program, and may contain errors including punctuation, grammar, spelling, gender, (more content not included)...[facility]02-07-2025 History of Present illness Narrative* Vibha Flores MD - 07/18/2024 8:31 AM EST Images from the original note were not included. Vibha Flores M.D. Colon & Rectal Surgery 1 [facility], [address] [place] [id number] CC: rectal cancer HPI: Trudy Calle is a 63 year old White female who was referred by MERON Page with [facility] for newly diagnosed rectal adenocarcinoma. My final recommendations will be communicated back to the requesting physician by way of shared Medical record or letter to requesting calin chandra via electronic or US mail. PCP: Dr. Antoni Slaughter Patient was initially evaluated by gastroenterology for constipation and rectal bleeding. She underwent a colonoscopy on 06/26/2024 that demonstrated an ulcerated partially obstructing large mass within the rectum that was circumferential. The scope not advanced past the sigmoid colon due to stool bu rden and poor prep. Multiple biopsies were taken of this lesion and final pathology returned with invasive adenocarcinoma. MSI testing is still pending. This was patient's first colonoscopy. Currently the patient feels well. She denies any abdominal or rectal pain. She does have some constipation and is taking MiraLAX daily. No nausea or vomiting. No unintentional weight loss. She denies any blood in her stool. There is no family history of colon or rectal cancer as far she knows. Past medical history significant for HTN, per patient right groin vascular blockage for which she is on plavix, HLD, hypothyroidism. Review of Systems: For pertinent positives and negatives, please see HPI PAST MEDICAL HISTORY Diagnosis Date Hyperlipidemia Hypertension Hypothyroidism No past surgical history on file. Social History Tobacco Use Smoking status: Every Day Types: Cigarettes Smokeless tobacco: Current No family history on file. The ROS, medical, surgical, family, and social history were reviewed by Vibha Flores MD ALLERGIES No Known Allergies Current Outpatient Medications Medication Sig atorvastatin (LIPITOR) 20 mg tablet Take 1 tablet by mouth every afternoon. carvedilol (COREG) 6.25 mg tablet Take 1 tablet by mouth every afternoon. No current facility-administered medications for this visit. Vitals: BP 112/73 Pulse 76 Ht 170.2 cm (5' 7) Wt 95.2 kg (209 lb 14.4 oz) BMI 32.87 kg/m BMI 32.87 kg/(m^2) Physical Exam Constitutional: General: She is not in acute distress. Appearance: Normal appearance. She is not ill-appearing. Cardiovascular: Rate and Rhythm: Normal rate and regular rhythm. Heart sounds: Normal heart sounds. No murmur heard. No friction rub. No gallop. Pulmonary: Effort: Pulmonary effort is normal. No respiratory distress. Breath sounds: Normal breath sounds. No wheezing or rales. Abdominal: General: There is no distension. Palpations: Abdomen is soft. There is no mass. Tenderness: There is no abdominal tenderness. There is no guarding or rebound. Genitourinary: Comments: Patient was examined in knee-chest with a tent assembler present. Externally there were small skin tags. On digital rectal exam, there was no mass that was palpable, no lesions noted, no blood present. Musculoskeletal: General: No deformity. Normal range of motion. Cervical back: Normal range of motion and neck supple. Lymphadenopathy: Cervical: No cervical adenopathy. Skin: General: Skin is warm and dry. Findings: No rash. Neurological: Mental Status: She is alert and oriented to person, place, and time. Gait: Gait is intact. Psychiatric: Mood and Affect: Mood and affect normal. Judgment: Judgment normal. Assessment/Plan: 1. Rectal cancer (HCC) Patient with a newly diagnosed rectal cancer per colonoscopy report however the pathology specimen is labeled sigmoid so it is unclear the exact location of this tumor. Per patient she had CTs as well as MRIs done for staging of her rectal cancer at [facility]. We will call to obtain the results of her imaging. We will also get the images uploaded to our system. Patient also states that she had a CEA drawn at [facility] as well. We also will request the final pathology to obtain MSI status on her tumor. Not clinically obstructed at this time. Encouraged her to continue MiraLAX. Pending the results of her imaging and the ultimate location of her tumor, if her cancer truly is in the rectum and there is no evidence of metastatic disease, she would likely need DILIA. If the cancer is more proximal and again there is no evidence of metastatic disease, can likely proceed directly to surgery. Referrals placed to medical and radiation oncology. RTC 3 months. Vibha Flores M.D. Please Note: This office note has been created using Bluelock, a speech recognition software program, and may contain errors including punctuation, grammar, spelling, gender, and inappropriate words or phrases that pertain to the sytem. documented in this encounterS[facility]01-[facility]25 [facility] Medical Records Department [address] [place] [address] History Physical Exam 06/26/24 1003 MR#: [id number] Acct: [id number] Name: TRUDY CALLE Rep #: [id number] : 1960 63 From: Rivera Townsend DO PCP: Dr. Antoni Slaughter MD Status:REG [facility] Location: [place] [address] HPI - General General Date of Admission: 06/26/24 Date of Service: 06/26/24 HPI Narrative TRUDY CALLE, is a 63 F who presentsChief Complaint: constipation Details: TRUDY CALLE, is a 63 F who presents to the office today for establishment with [facility]. Pt daniel been struggling with constipation for a few months now. Prior to this she was having regular bm daily. She is now having a bm once a week, if that. There was no medication changes at this time. The only change in her life was that she retired. She wonders if she is not moving enough and this is a factor. She has tried ex lax and miralax which gave her a bm but caused her al ot of cramping and discomfort. She feels she is eating less but has not had weight loss. She has had occasional bright red blood per rectum when she wipes. She has never had a colonoscopy before. She has no family hx of colon cancer. She denies abd pain, n/v, heartburn, diarrhea or melena. [facility] Medical History Wears glasses Smoker History of echocardiogram Cardiology follow-up encounter Wears dentures Blood in stool Chronic constipation Hyperlipidemia Health care maintenance Hypothyroidism Thyroid disease Hypertension Home Medications ???Medication ???Instructions ???Recorded ???Last Taken ???Type clopidogrel 75 mg tablet 75 mg PO DAILY #90 tabs 11/01/23 06/22/24 Rx hydrochlorothiazide 25 mg tablet 25 mg PO QAM #90 tabs 11/01/23 Unknown Rx levothyroxine 150 mcg tablet 150 mcg PO DAILY #90 tabs 11/01/23 06/26/24 05:35 Rx losartan 100 mg tablet 100 mg PO DAILY #90 tabs 11/01/23 06/26/24 05:35 Rx carvedilol 6.25 mg tablet 6.25 mg PO DAILY #90 tabs 05/02/24 06/26/24 05:35 Rx atorvastatin 20 mg tablet 20 mg PO DAILY #90 tabs 05/05/24 Unknown Rx Allergy/AdvReac Type Severity Reaction Status Date / Time No Known Allergies Allergy Verified 06/26/24 09:32 Family History Father Heart disease Mother Breast cancer Surgical History History of tonsillectomy ( 1964) Social History Smoking Status: Current every day smoker tobacco type: cigarettes alcohol intake: never substance use type: does not use what type of physical activity do you participate in: walking and other details: work frequency: 5-6 times per week ROS Constitutional Constitutional: Denies fatigue, fever(s), poor appetite, weight gain or weight loss Gastrointestinal Gastrointestinal: Denies belching, bloating, change in bowel habits, change in stool character, chewing difficulty, coffee ground emesis, constipation, cramping, diarrhea, dyspepsia, dysphagia, early satiety, excessive flatus, fecal incontinence, heartburn, hematemesis, hematochezia, hemorrhoids, loose stools, melena, nausea, odynophagia, rectal bleeding, tenesmus, vomiting or weight changes Vital Signs Vital Signs Vital Signs: 06/26/24 09:36 06/26/24 09:36 Temperature 98.2 F Temperature Source Temporal Pulse Rate 80 Respiratory Rate 14 Respiratory Pattern Normal Blood Pressure 145/93 H Blood Pressure Mean 110 Blood Pressure Source Monitor Blood Pressure Position Semi-Fowlers Blood Pressure Location Right Arm Pulse Ox 100 Oxygen Delivery Method Room Air Weight Weight: 213 lb 6.519 oz Body Mass Index (BMI) 33.4 Physical Exam Const alert, oriented x3, no apparent distress and healthy appearing General Appearance: cooperative GI normal to inspection, nondistended, normoactive bowel sounds, soft to palpation, non-tender and non- distended Percussion: normal to percussion Rectal Exam: deferred Assessment Plan Assessment/Plan (1) Chronic constipation: PLAN: Assessment and Plan Assessment and Plan (1) Chronic constipation: Status: Chronic Plan: This is a 63 yo female presenting for new onset issues with constipation. She is going at maximum once a week but sometimes less than this. Prior to this she was going once a day. She has never had a colonoscopy. SHe will need to undergo colonoscopy to assess for colon cancer as she has never had one and is having new symptoms of constipation. In the mean time she will try samples of Linzess 145 mcg. -Colonoscopy -Trial Linzess 06/26/24 1008 Cosigner Signature (if applicable): CC: Dr. Antoni Slaughter MD; Rivera Friend, (more content not included)... [facility]01-07-2025 Evaluation note* Diagnosis Onset Date Resolution Status Admit Date Chronic constipation chronic Vijay sanaz 2024 7:49am Chronic constipation chronic Vijay sanaz 2024 9:03am Colorectal cancer acute July 02, 2024 9:46am Colorectal cancer acute 2024 8:00am Hyperlipidemia acute July 132024 8:00am Hypertension chronic July 8:00am Hypothyroidism chronic July 132024 8:00am Colorectal cancer acute August 102024 1:03pm Regional lymph node metastas is present acute September 04, 2024 1:03pm Colorectal cancer acute August 112024 8:42am Colorectal cancer acute September 092024 2:56pm Encounter for education acute [facility] 20[facility] 2:56pm Regional lymph node metastas is present acute September 09, 2024 2:56pm [facility] Work Phone: [phone]) 704-904511-20-2024 Evaluation note* Diagnosis Onset Date Resolution Status Admit Date Blood in stool acute April 122023 1:47pm Health care maintenance acute N ovember 2023 1:47pm Chronic constipation chronic Nove mber 2023 1:47pm Hypertension chronic April 1:47pm Hypothyroidism chronic April 122023 1:47pm Chronic constipation chronic Vijay sanaz 2024 7:49am Chronic constipation chronic Vijay sanaz 2024 9:03am Colorectal cancer acute July 02, 2024 9:46am Colorectal cancer acute 2024 8:00am Hyperlipidemia acute July 132024 8:00am Hypertension chronic July 8:00am Hypothyroidism chronic July 132024 8:00am [facility] Work Phone: Consult note Author Tristin Phipps [facility] Note Date/Time September 17, 2024 9:44 am [facility] Medical Records Department [address] [facility] [place] [address] Anesthesia Postop Eval I 09/17/2443 MR#: [id number] Acct: [id number] Name: TRUDY CALLE Rep #:[id number] : 1960 63 From: Tristin Phipps CRNA PCP: Dr. Antoni Slaughter MD Status:R EG SDC Y Race: C Location: [place] [address] Anesthesia: Postop Eval I Current Vital Signs Temperature: 98.6 F Pulse Rate: 78 Blood Pressure: 100/56 Respiratory Rate: 20 Pulse Ox: 95 Oxygen Delivery Method: Room Air Assessment Airway patent: Yes Spontaneous unlabored respirations: Yes Mental status: Awake and Calm nausea: No Vomiting: No Anesthesia Complication: No Fluid Hydration Crystalloid volume administer (ml): 400 Total IV fluid infused: 400 Progress Note Anesthesia document: Postop Eval 1 completed: Yes 09/17/24943 <Electronically signed by Tristin saini CRNA> Date _ Tristin Phipps CRNA Cosigner Signature: Date CC: ~ Signed [facility] Work Phone: Discharge summary Author Humberto Leigh [facility] Note Date/Time September 17, 2024 9:38 am [facility] Medical Records Department [address] [place] [address] Instructions for Home/Discharge Instructions 09/17/24937 MR#: [id number] Acct: [id number] Name: TRUDY CALLE Rep #:[id number] : 1960 63 From: Humberto garner MD PCP: Dr. Antoni Slaughter MD Status:R EG [facility] Discharge Instructions Procedure Port-A-Cath Diet Discharge Diet: Light diet - advance as tolerated (Pain medication may cause nausea. You should typically eat light foods as you take your pain medication.) Activity Discharge Activity: Return to Normal Activity and May Shower (with your bandage in place in 1-2 days after surgery. DO NOT SHOWER WHEN YOUR PORT IS ACCESSED.) Additional Activity Instructions:: Resume Plavix on Sunday Alternate ibuprofen and Tylenol for pain control Dressing / Incision Call your doctor if your incision/area has: Continuous Slow Oozing, Sudden Increased Bleeding, Increased Pain/ Swelling, Increased Redness and Foul Smelling Discharge Call your doctor if you observe: Fever of 101 or Higher Remove Dressing in: 2 days Cleanse incision/area with: Soap & Water Follow Up Care Please Follow Up With: Humberto Leigh MD When: as needed [phone] Test Results: Test results from this visit will be discussed in further detail at your follow- up appointment, if applicable. Discharge Plan Admission Attending Provider: Humberto Leigh Primary Care Provider: Antoni Slaughter Instructions Print Language: Zambian Discharge Orders/Prescriptions Prescriptions: No Action losartan 100 mg tablet 100 mg PO DAILY Qty: 90 1RF hydrochlorothiazide 25 mg tablet 25 mg PO QAM Qty: 90 1RF clopidogrel 75 mg tablet 75 mg PO DAILY Qty: 90 1RF Patient Comments: STOP 5 DAYS PRIOR TO PROCEDURE-LAST DOSE 09/11/2024 ondansetron 8 mg tablet,disintegrating 8 mg PO Q8H PRN (Reason: nausea and vomiting) Qty: 30 2RF lidocaine-prilocaine 2.5-2.5 % cream 1 applic topical ONCE PRN (Reason: port access) 30 Days Qty: 30 2RF prochlorperazine maleate 10 mg tablet 10 mg PO Q6H PRN (Reason: nausea and vomiting) Qty: 30 2RF potassium iodide 65 mg tablet 130 mg PO QDAY PRN (Reason: pain) carvedilol 6.25 mg tablet 6.25 mg PO DAILY Qty: 90 1RF levothyroxine 150 mcg tablet 150 mcg PO DAILY Qty: 120 1RF Rx Instructions: Take 150 mcg 6 days a week and 225 mcg 1 day a week. atorvastatin 40 mg tablet 40 mg PO DAILY Qty: 90 1RF Referrals / Follow Up: Antoni Slaughter MD [Primary Care Provider] - Disposition Disposition (needs filled in before D/C Order can be placed): Home, Self Care 09/17/24 0938<Electronically signed by Humberto Leigh MD>Humberto Leigh MD CC: Dr. Antoni Slaughter MD ~ Signed [facility] Work Phone: Evaluation note* Diagnosis Onset Date Resolution Status Hypertension chronic Hypothyroidism [facility] Work Phone: Evaluation note* Diagnosis Onset Date Resolution Status Hypertension chronic Hypothyroidism chronic Hypertension chronic Hypothyroidism [facility] Work Phone: Evaluation note* Diagnosis Rectal cancer (HCC)- Primary Malignant neoplasm of rectum [facility] Diagnosis Rectal cancer (HCC)- Primary Malignant neoplasm of rectum Rectal cancer (HCC) Malignant neoplasm of rectum documented in this encounter [facility] note* Diagnosis Rectal cancer (HCC)- Primary Malignant neoplasm of rectum Rectal cancer (HCC) Malignant neoplasm of rectum documented in this encounter [facility] note* Diagnosis Pre-op exam- Primary Preoperative examination, unspecified Rectal cancer (HCC) Malignant neoplasm of rectum Hyperlipidemia, unspecified hyperlipidemia type Primary hypertension Unspecified essential hypertension Hypothyroidism, unspecified type PVD (peripheral vascular disease) (HCC) Peripheral vascular disease, unspecified PAD (peripheral artery disease) (HCC) Peripheral vascular disease, unspecified Nicotine use Rectal cancer (HCC) Malignant neoplasm of rectum * Assessment & Plan Note - Osmel Mayes APRN.CNP - 08/07/2024 1:46 PM EST Associated Problem(s): Nicotine use 50 pack years-currently smoking 3/4 PPD Encouraged to cut back prior to surgery and avoid morning of surgery * Assessment & Plan Note - Osmel Mayes APRN.CNP - 08/07/2024 1:42 PM EST Associated Problem(s): PAD (peripheral artery disease) (HCC) Does not follow with vascular any longer. She follows with PCP. Plavix-instructed to get pre op instructions from surgeon and prescribing physician. Blockage in groin per patient No stent per patient Called PCP office to get records to review. * Assessment & Plan Note - Osmel Mayes APRN.CNP - 08/07/2024 12:30 PM EST Associated Problem(s): Hypothyroidism Levothyroxine 150 mcg-instructed to take DOS Managed per PCP No labs in epic * Assessment & Plan Note - Osmel Mayes APRN.CNP - 08/07/2024 12:30 PM EST Associated Problem(s): Hypertension Carvedilol-instructed to take DOS HCTZ-instructed to take DOS Losartan-instructed to hold DOS * Assessment & Plan Note - Osmel Mayes APRN.CNP - 08/07/2024 12:29 PM EST Associated Problem(s): Hyperlipidemia Statin-instructed to continue perioperatively * Assessment & Plan Note - Osmel Mayes APRN.CNP - 08/07/2024 12:29 PM EST Associated Problem(s): Rectal cancer (HCC) Surgery scheduled 08/13/2024 * Assessment & Plan Note - Osmel Mayes APRN.CNP - 08/07/2024 12:29 PM EST Associated Problem(s): Pre-op exam see note for medical conditions which may affect francis-operative course that were addressed at today's visit. [facility]* Diagnosis Pre-op exam- Primary Preoperative examination, unspecified Rectal cancer (HCC) Malignant neoplasm of rectum Hyperlipidemia, unspecified hyperlipidemia type Primary hypertension Unspecified essential hypertension Hypothyroidism, unspecified type PVD (peripheral vascular disease) (HCC) Peripheral vascular disease, unspecified PAD (peripheral artery disease) (HCC) Peripheral vascular disease, unspecified Nicotine use Other specified counseling- Primary Rectal cancer (HCC) Malignant neoplasm of rectum [facility] Diagnosis Pre-op exam- Primary Preoperative examination, unspecified Rectal cancer (HCC) Malignant neoplasm of rectum Hyperlipidemia, unspecified hyperlipidemia type Primary hypertension Unspecified essential hypertension Hypothyroidism, unspecified type PVD (peripheral vascular disease) (HCC) Peripheral vascular disease, unspecified PAD (peripheral artery disease) (HCC) Peripheral vascular disease, unspecified Nicotine use 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 Antoni Slaughter MD Status:[facility] Location: [place] [address] History and Physical Date of Admission: 09/17/24 Intake Chief Complaint: port placement Allergies No Known Allergies Allergy (Verified 09/08/24 08:54) Medications ?Medication ?Instructions ?Recorded ?Confirmed ?Type clopidogrel 75 mg tablet 75 mg PO DAILY #90 tabs 11/01/23 5 Rx hydrochlorothiazide 25 mg tablet 25 mg PO QAM #90 tabs 11/01/23 09/08/24 Rx losartan 100 mg tablet 100 mg PO DAILY #90 tabs 11/01/23 Rx carvedilol 6.25 mg tablet 6.25 mg PO DAILY #90 tabs 05/02/2409/08 Rx atorvastatin 40 mg tablet 40 mg PO DAILY #90 tabs 08/04/24 5 Rx levothyroxine 150 mcg tablet 150 mcg PO DAILY #120 tabs 08/04/2408/11 Rx potassium iodide 65 mg tablet 130 mg PO QDAY 09/08/24 09/08/24 History Assessment and Plan Assessment and Plan (1) Colorectal cancer: Status: Acute 09/08/24917 <Electronically signed by Humberto Leigh MD> Date Humberto Leigh MD cc: ~* Signed Intake Vital Signs 09/04/2512:38 09/09/2507:54 Height 5 ft 7 in 5 ft 7 in BP 146/83 H 113/72 Blood Pressure Location Lt brachial Rt brachial Position Sitting Sitting Respiration 16 16 Pulse 67 Pulse Source Monitor Temp 96.5 F L Pulse Oximetry (%) 97 Oxygen Delivery Method room air Intake Visit Reasons: PORT PLACEMENT Chief Complaint: port placement Rural Carrier Required: No Is patient in pain?: No Allergies No Known Allergies Allergy (Verified 09/08/24 08:54) Medications ?Medication ?Instructions ?Recorded ?Confirmed ?Type clopidogrel 75 mg tablet 75 mg PO DAILY #90 tabs 11/01/23 5 Rx hydrochlorothiazide 25 mg tablet 25 mg PO QAM #90 tabs 11/01/23 09/08/24 Rx losartan 100 mg tablet 100 mg PO DAILY #90 tabs 11/01/23 Rx carvedilol 6.25 mg tablet 6.25 mg PO DAILY #90 tabs 05/02/2409/08 Rx atorvastatin 40 mg tablet 40 mg PO DAILY #90 tabs 08/04/24 5 Rx levothyroxine 150 mcg tablet 150 mcg PO DAILY #120 tabs 08/04/2408/11 Rx potassium iodide 65 mg tablet 130 mg PO QDAY 09/08/24 09/08/24 History Have you fallen in the past year?: No PFSH Medical History Regional lymph node metastasis present Wears glasses Smoker History of echocardiogram Cardiology follow-up encounter Wears dentures Blood in stool Chronic constipation Hyperlipidemia Health care maintenance Hypothyroidism Thyroid disease Hypertension Surgical History S/P colectomy History of tonsillectomy (~1964) Family History Father Heart diseaseMother Breast cancer Heart disease Social History Smoking Status: Current every day smoker tobacco type: cigarettes alcohol intake: current alcohol intake frequency: holidays/special occasions only substance use type: does not use what type of physical activity do you participate in: walking and other details: work frequency: 5-6 times per week HPI HPI HPI: Patient is a 63-year-old female here for right chest port placement. She has colon cancer which was positive in the lymph nodes. ROS General General: Yes colon cancer; No weight change, appetite, fatigue, breast cancer or weakness HEENT HEENT: No difficulty swallowing, eye injury, eye surgery, swollen glands or hoarseness Endo Endocrine: Yes thyroid disease; No diabetes mellitus, thyroid cancer, Hair loss, heat intolerance or cold intolerance Skin Skin: No rash or changing moles Breast Breast: No left breast lump, right breast lump, nipple discharge, breast pain, abnormal mammogram, abnormal US or breast enlargement Musc Musculoskeletal: No back problems, arthritis, rheumatoid arthritis, gout or joint pain Cardio Cardiovascular: Yes high blood pressure; No murmur, pacemaker, heart disease, atrial fibrillation, heart attack, heart stent, palpitations, shortness of breath with exertion or chest pain Psych Psychiatric: No depression, anxiety or hearing voices Resp Respiratory: No shortness of breath, No sleep apnea, No cough, No COPD, No asthma, No emphysema and No wheezing Gastro Gastrointestinal: No abdominal pain, No nausea or vomiting, No diarrhea, No constipation, No blood in stool, No acid reflux, No hemorrhoids, No ulcers, No gallbladder problem and No black,tarry stools Bennett Hematologic: Yes blood thinners, No blood disorders, No bleeding, No anemia and No blood clots Neuro Neurologic: No system reviewed and no additional complaints, except as documented, No as per HPI, No abnormal gait, No abnormal hearing, No abnormal movements, No abnormal speech, No behavioral changes, No burning sensations, No confusion, No convulsions, No disequilibrium, No dizziness, No localized weakness, No frequent falls, No headache(s), No lack of coordination, No loss ofvision, No memory loss, No numbness, No other visual disturbances, No radicular pain, No restless legs, No sensory deficit, No syncope, No tingling, No tremor(s), No weakness and No other Exam Const General: cooperative Orientation: alert and oriented x3 HENMT Head: normal to inspection Neck Neck: normal visual inspection and full ROM Chest Chest palpation & inspection: normal inspection of the chest Resp Effort & Inspection: normal respiratory effort Auscultation: clear to auscultation bilaterally Cardio Rate: regular rate Rhythm: regular rhythm GI Inspection: non-distended Palpation: soft and nontender Skin General: no rashes or lesions noted Neuro General: patient alert and patient oriented x3 Extrem General: full ROM Psych Appearance: grossly normal Mental Status: mental status grossly normal Assessment and Plan Assessment and Plan (1) Colorectal cancer: Status: Acute Plan: Patient has colon cancer with positive lymph nodes. I discussed right chest port placement with the patient in detail. I discussed the risks including but not limited to bleeding, infection, pneumothorax, line infection or DVT. Patient understands the risks and is willing to proceed. She will hold her Plavix for 5 days. Humberto Leigh MD Pager: [facility] [address] [place] [address], [address] [place] [address] Office: I have seen and examined the patient and reviewed the H&P. THere are no clinicalchanges. 09/17/24 0835 <Electronically signed by Humberto Leigh MD> Cosigner Signature (if applicable): CC: Dr. Humberto Leigh MD; Dr. Antoni Slaughter MD~ Signed [facility] Work Phone: Summary Purpose Family History No Family History Records Found Relationship Condition Age at Onset Recorded Date/T rohan father Cardiac disease Unknown mother Malignant neoplasm of breast Unknown Relationship Condition Age at Onset Recorded Date/T rohan father Cardiac disease Unknown mother Malignant neoplasm of breast Unknown Cardiac disease Unknown Advance Directives No Advanced Directives Records Found Advance Directive Response Recorded Date/ Time Living Will No June 25 11:12am Power of Hydraulic Pile Hammer Operator No June 25, 2024 11:12am Advance Directive Response Recorded Date/ Time Living Will No June 25 12:12pm Do you have a Healthcare Power of Hydraulic Pile Hammer Operator? No June 25, 2024 12:12pm Living Will No September 11, 2024 8:24am Do you have a Healthcare Power of Hydraulic Pile Hammer Operator? No September 11, 2024 8:24am Advance Directive Response Recorded Date/ Time Living Will No October 22, 2024 1 1:12am Do you have a Healthcare Power of Hydraulic Pile Hammer Operator? No October 22, 2024 11:12am Advance Directives No October 22 11:12am Living Will No September 11, 2024 8:24am Do you have a Healthcare Power of Hydraulic Pile Hammer Operator? No September 11, 2024 8:24am Advance Directive Response Recorded Date/ Time Living Will No November 04, 2024 1 0:57am Do you have a Healthcare Power of Hydraulic Pile Hammer Operator? No November 04, 2024 10:57am Advance Directives No November 04 10:57am Living Will No September 11, 2024 8:24am Do you have a Healthcare Power of Hydraulic Pile Hammer Operator? No September 11, 2024 8:24am Advance Directive Response Recorded Date/ Time Living Will No November 06, 2024 1 2:04pm Do you have a Healthcare Power of Hydraulic Pile Hammer Operator? No November 06, 2024 12:04pm Advance Directives No November 06 12:04pm Living Will No September 11, 2024 8:24am Do you have a Healthcare Power of Hydraulic Pile Hammer Operator? No September 11, 2024 8:24am Advance Directive Response Recorded Date/ Time Living Will No November 19, 2024 10:09am Do you have a Healthcare Power of Hydraulic Pile Hammer Operator? No November 19, 2024 10:09am Advance Directives No November 19 10:09am Living Will No September 11, 2024 8:24am Do you have a Healthcare Power of Hydraulic Pile Hammer Operator? No September 11, 2024 8:24am Chief Complaint and Reason for Visit Chief Complaint Annual Reason for Visit Hypertension Hypothyroidism Chief Complaint Annual 1 Y FU Reason for Visit Hypertension Hypothyroidism Hypertension Hypothyroidism Chief Complaint Admit Date 6 M FU April 30, 2024 1:47pm Melena June 17, 2024 7: 49am RECTAL CA July 02, 2024 9 :46am MED ONC July 02, 2024 1 0:30am RECTAL CANCER July 04, 2024 7 :54am Malignant neoplasm of colon, unspecified July 17, 2024 7:33am 3 M FU August 04, 2024 8:00am Reason for Visit Admit Date Blood in stool April 30, 2024 1:47pm Health care maintenance April 30, 2 024 1:47pm Chronic constipation April 30, 2024 1:47pm Hypertension April 30, 2024 1:47pm Hypothyroidism April 30, 2024 1:47pm Chronic constipation June 17, 2024 7 :49am Chronic constipation June 26, 2024 9:03am Colorectal cancer July 02, 2024 9 :46am Colorectal cancer August 04, 2024 8:00am Hyperlipidemia August 04, 2024 8:00am Hypertension August 04, 2024 8:00am Hypothyroidism August 04, 2024 8:00am Chief Complaint Admit Date Melena June 17, 2024 7: 49am RECTAL CA July 02, 2024 9 :46am RECTAL CANCER July 04, 2024 7 :54am Malignant neoplasm of colon, unspecified July 17, 2024 7:33am 3 M FU August 04, 2024 8:00am 3 WK POST OP CCF - PATH HERE September 04, 2024 1:03pm MED ONC September 04, 2024 2:3 0pm PORT PLACEMENT September 08, 2024 8:4 2am CHEMO ED September 09, 2024 2:56 pm Insertion, Vascular Port right poss left September 17, 2024 7:21am Insertion, Vascular Port right poss left September 17, 2024 8:34am Reason for Visit Admit Date Chronic constipation June 17, 2024 7 :49am Chronic constipation June 26, 2024 9:03am Colorectal cancer July 02, 2024 9 :46am Colorectal cancer August 04, 2024 8:00am Hyperlipidemia August 04, 2024 8:00am Hypertension August 04, 2024 8:00am Hypothyroidism August 04, 2024 8:00am Colorectal cancer September 04, 2024 1:0 3pm Regional lymph node metastasis present M arch 2024 1:03pm Colorectal cancer September 08, 2024 8:4 2am Colorectal cancer September 09, 2024 2:56 pm Encounter for education September 09, 2024 2:56pm Regional lymph node metastasis present A pril 2024 2:56pm Chief Complaint Admit Date Malignant neoplasm of colon, unspecified July 17, 2024 7:33am 3 M FU August 04, 2024 8:00am 3 WK POST OP CCF - PATH HERE September 04, 2024 1:03pm PORT PLACEMENT September 08, 2024 8:4 2am CHEMO ED September 09, 2024 2:56 pm Insertion, Vascular Port right poss left September 17, 2024 7:21am Insertion, Vascular Port right poss left September 17, 2024 8:34am NEW START - LABS - [facility] September 22 8:37am TOX CHECK, LABS September 29, 2024 9:0 9am 2 WEEK, LABS [place] October 06, 2024 8:3 8am 2 WKS - LABS - [place] October 20, 2024 8:3 8am pump d/c November 04, 2024 8:30a m 2 WKS - LABS - [place] November 04, 2024 8:4 3am Reason for Visit Admit Date Colorectal cancer August 04, 2024 8:00am Hyperlipidemia August 04, 2024 8:00am Hypertension August 04, 2024 8:00am Hypothyroidism August 04, 2024 8:00am Colorectal cancer September 04, 2024 1:0 3pm Regional lymph node metastasis present M arch 2024 1:03pm Colorectal cancer September 08, 2024 8:4 2am Colorectal cancer September 09, 2024 2:56 pm Encounter for education September 09, 2024 2:56pm Regional lymph node metastasis present A pril 2024 2:56pm Colorectal cancer September 22, 2024 8:3 7am Regional lymph node metastasis present A pril 2024 8:37am CINV (chemotherapy-induced nausea and vo miting) September 29, 2024 9:09am Colorectal cancer September 29, 2024 9:0 9am Regional lymph node metastasis present A pril 2024 9:09am Colorectal cancer October 06, 2024 8:3 8am Regional lymph node metastasis present A pril 2024 8:38am Colorectal cancer October 20, 2024 8:38a m Encounter for chemotherapy management Ma y 2024 8:38am Regional lymph node metastasis present M ay 2024 8:38am Actinic keratosis November 04, 2024 8:43a m Colorectal cancer November 04, 2024 8:43a m Encounter for chemotherapy management Ma y 2024 8:43am Regional lymph node metastasis present M ay 2024 8:43am Chief Complaint Admit Date Malignant neoplasm of colon, unspecified July 17, 2024 7:33am 3 M FU August 04, 2024 8:00am 3 WK POST OP CCF - PATH HERE September 04, 2024 1:03pm PORT PLACEMENT September 08, 2024 8:4 2am CHEMO ED September 09, 2024 2:56 pm Insertion, Vascular Port right poss left September 17, 2024 7:21am Insertion, Vascular Port right poss left September 17, 2024 8:34am NEW START - LABS - [place] September 22 8:37am TOX CHECK, LABS September 29, 2024 9:0 9am 2 WEEK, LABS [place] October 06, 2024 8:3 8am 2 WKS - LABS - [place] October 20, 2024 8:3 8am pump d/c November 04, 2024 8:30a m 2 WKS - LABS - [place] November 04, 2024 8:4 3am 3 M FU 2024 9:07a m Chief Complaint Admit Date 3 M FU August 04, 2024 8:00am 3 WK POST OP CCF - PATH HERE September 04, 2024 1:03pm PORT PLACEMENT September 08, 2024 8:4 2am CHEMO ED September 09, 2024 2:56 pm Insertion, Vascular Port right poss left September 17, 2024 7:21am Insertion, Vascular Port right poss left September 17, 2024 8:34am NEW START - LABS - [place] September 22 8:37am TOX CHECK, LABS September 29, 2024 9:0 9am 2 WEEK, LABS TX October 06, 2024 8:3 8am 2 WKS - LABS - [place] October 20, 2024 8:3 8am 2 WKS - LABS - [place] November 04, 2024 8:4 3am 3 M FU 2024 9:07a m pump d/c November 17, 2024 8:15a m 2 WKS - LABS - [place] November 17, 2024 8:3 9am Reason for Visit Admit Date Colorectal cancer August 04, 2024 8:00am Hyperlipidemia August 04, 2024 8:00am Hypertension August 04, 2024 8:00am Hypothyroidism August 04, 2024 8:00am Regional lymph node metastasis present M arch 2024 1:03pm Colorectal cancer September 04, 2024 1:0 3pm Colorectal cancer September 08, 2024 8:4 2am Encounter for education September 09, 2024 2:56pm Regional lymph node metastasis present A pril 2024 2:56pm Colorectal cancer September 09, 2024 2:56 pm Regional lymph node metastasis present A pril 2024 8:37am Colorectal cancer September 22, 2024 8:3 7am CINV (chemotherapy-induced nausea and vo miting) September 29, 2024 9:09am Regional lymph node metastasis present A pril 2024 9:09am Colorectal cancer September 29, 2024 9:0 9am Regional lymph node metastasis present A pril 2024 8:38am Colorectal cancer October 06, 2024 8:3 8am Encounter for chemotherapy management Ma y 2024 8:38am Regional lymph node metastasis present M ay 2024 8:38am Colorectal cancer October 20, 2024 8:38a m Actinic keratosis November 04, 2024 8:43a m Encounter for chemotherapy management Ma y 2024 8:43am Regional lymph node metastasis present M ay 2024 8:43am Colorectal cancer November 04, 2024 8:43a m Colorectal cancer 2024 9:07a m Hyperlipidemia 2024 9:07a m Hypertension 2024 9:07a m Hypothyroidism 2024 9:07a m Actinic keratosis November 17, 2024 8:39a m Encounter for chemotherapy management Ju ne 2024 8:39am Regional lymph node metastasis present J une 2024 8:39am Colorectal cancer November 17, 2024 8:39a m Chief Complaint Admit Date 3 M FU August 04, 2024 8:00am 3 WK POST OP CCF - PATH HERE September 04, 2024 1:03pm PORT PLACEMENT September 08, 2024 8:4 2am CHEMO ED September 09, 2024 2:56 pm Insertion, Vascular Port right poss left September 17, 2024 7:21am Insertion, Vascular Port right poss left September 17, 2024 8:34am NEW START - LABS - [place] September 22 8:37am TOX CHECK, LABS September 29, 2024 9:0 9am 2 WEEK, LABS TX October 06, 2024 8:3 8am 2 WKS - LABS - [place] October 20, 2024 8:3 8am 2 WKS - LABS - [place] November 04, 2024 8:4 3am 3 M FU 2024 9:07a m 2 WKS - LABS - [place] November 17, 2024 8:3 9am 2 WKS - LABS - [place] December 01, 2024 8: 36am pump d/c December 01, 2024 9:15 am Reason for Visit Admit Date Colorectal cancer August 04, 2024 8:00am Hyperlipidemia August 04, 2024 8:00am Hypertension August 04, 2024 8:00am Hypothyroidism August 04, 2024 8:00am Regional lymph node metastasis present M arch 2024 1:03pm Colorectal cancer September 04, 2024 1:0 3pm Colorectal cancer September 08, 2024 8:4 2am Encounter for education September 09, 2024 2:56pm Regional lymph node metastasis present A pril 2024 2:56pm Colorectal cancer September 09, 2024 2:56 pm Regional lymph node metastasis present A pril 2024 8:37am Colorectal cancer September 22, 2024 8:3 7am CINV (chemotherapy-induced nausea and vo miting) September 29, 2024 9:09am Regional lymph node metastasis present A pril 2024 9:09am Colorectal cancer September 29, 2024 9:0 9am Regional lymph node metastasis present A pril 2024 8:38am Colorectal cancer October 06, 2024 8:3 8am Encounter for chemotherapy management Ma y 2024 8:38am Regional lymph node metastasis present M ay 2024 8:38am Colorectal cancer October 20, 2024 8:38a m Actinic keratosis November 04, 2024 8:43a m Encounter for chemotherapy management Ma y 2024 8:43am Regional lymph node metastasis present M ay 2024 8:43am Colorectal cancer November 04, 2024 8:43a m Colorectal cancer 2024 9:07a m Hyperlipidemia 2024 9:07a m Hypertension 2024 9:07a m Hypothyroidism 2024 9:07a m Actinic keratosis November 17, 2024 8:39a m Encounter for chemotherapy management [facility] 2024 8:39am Regional lymph node metastasis present J [facility] 2024 8:39am Colorectal cancer November 17, 2024 8:39a m Regional lymph node metastasis present J [facility] 2024 8:36am Colorectal cancer December 01, 2024 8:36 am Reason for Referral Specialty Diagnoses / Procedures Referred By Contac t Referred To Contact Radiation Oncology Diagnoses Rectal cancer (HCC) Procedures RAD/ONC CONSULT OFFICE/OUTPATIENT [facility] 60 MINUTES Vibha Flores MD [address] [place] [address] Referral ID Status Reason Start Date Expiration Date Visits Requested Visits Authorized [id number] Pending Review PCP Requested Referral 07/18/2024 07/18/2025 1 1 Specialty Diagnoses / Procedures Referred By Contac t Referred To Contact Oncology Diagnoses Rectal cancer (HCC) Procedures CONSULT TO ONCOLOGY OFFICE/OUTPATIENT [facility] 60 MINUTES Vibha Flores MD [address] [place] [address] Referral ID Status Reason Start Date Expiration Date Visits Requested Visits Authorized [id number] Pending Review PCP Requested Referral 07/18/2024 07/18/2025 1 1 Additional Source Comments INFORMATION SOURCE (unrecogn ized section and content) DATE CREATED AUTHOR 08/13/2021 [facility] DATE CREATED AUTHOR AUTHOR'S ORGANIZ ATION 09/15/2024 [facility] DATE CREATED AUTHOR AUTHOR'S ORGANIZ ATION 12/04/2024 [facility] Care Teams (unrecognized sec tion and content) Team Status: Active Member Role Status Dates Dr. Antoni Slaughter MD Primary Care Provider Active Team Status: Inactive Member Role Status Dates Gideon Bowman NP, MIXING MACHINE TENDER CORK GASKET-C Attending Provider Active Dr. Antoni Slaughter MD Primary Care Provider, Refer ring Provider Active Team Status: Inactive Member Role Status Dates Dr. Antoni Slaughter MD Primary Care Provider Active Gideon Bowman NP, MIXING MACHINE TENDER CORK GASKET-C Attending Provider Active Team Status: Inactive Member Role Status Dates Dr. Antoni Slaughter MD Primary Care Provider, Refer ring Provider Active Gideon Bowman NP, MIXING MACHINE TENDER CORK GASKET-C Attending Provider Active Tugboat Mate Relationship Specialty Start Date End Date Antoni Slaughter MD [address] [facility] [address] [place] [address] PCP - General Internal Medicine 07/18/24 Tugboat Mate Relationship Specialty Start Date End Date Antoni Slaughter MD [address] [facility] [address] [place] [address] PCP - General Internal Medicine 07/18/24 Antoni Leach [address] [place], [place] [id number] Hematology/Oncology 07/29/24 Tugboat Mate Relationship Specialty Start Date End Date Antoni Slaughter [facility] [address] [facility] [address] [place] [address] PCP - General Internal Medicine 07/18/24 Antoni Leach [address] [place] [address] Hematology/Oncology 07/29/24 Tugboat Mate Relationship Specialty Start Date End Date [facility]aughter [facility] [address] [facility] [address] [place] [address] PCP - General Internal Medicine 07/18/24 Antoni Leach [address] [place] [address] Hematology/Oncology 07/29/24 Tugboat Mate Relationship Specialty Start Date End Date Antoni Slaughter MD [address] [facility] [address] [place] [address] PCP - General Internal Medicine 07/18/24 Antoni Leach [address] [place] [address] Hematology/Oncology 07/29/24 Tugboat Mate Relationship Specialty Start Date End Date Antoni Slaughter MD [address] [facility] [address] [place] [address] PCP - General Internal Medicine 07/18/24 Antoni Leach [address] [place] [address] Hematology/Oncology 07/29/24 Tugboat Mate Relationship Specialty Start Date End Date Antoni Slaughter MD [address] [place] [id number] PCP - General Internal Medicine 07/18/24 Antoni Leach [address] [place], [place] [address] Hematology/Oncology 07/29/24 Team Status: Inactive Member Role Status Dates Dr. Antoni Slaughter MD Primary Care Provider Active Start: April 30, 2024 End: April 30, 2024 Dr. Antoni Slaughter MD Attending Provider Active Start: April 30, 2024 End: April 30, 2024 Dr. Antoni Slaughter MD Referring Provider Active Start: April 30, 2024 End: April 30, 2024 Team Status: Inactive Member Role Status Dates Dr. Antoni Slaughter MD Primary Care Provider Active Start: June 17, 2024 End: June 17, 2024 Dr. Antoni Slaughter MD Referring Provider Active Start: June 17, 2024 End: June 17, 2024 MERON Page Attending Provider Active Start: June 17, 2024 End: June 17, 2024 Team Status: Inactive Member Role Status Dates Dr. Antoni Slaughter MD Primary Care Provider Active Start: June 26, 2024 End: June 26, 2024 Dr. Antoni Slaughter MD Referring Provider Active Start: June 26, 2024 End: June 26, 2024 Dr. Rivera Townsend DO Attending Provider Active Start: June 26, 2024 End: June 26, 2024 Team Status: Active Member Role Status Dates Dr. Antoni Slaughter MD Primary Care Provider Active Start: June 26, 2024 Dr. Antoni Slaughter MD Referring Provider Active Start: June 26, 2024 Dr. Rivera Townsend DO Attending Provider Active Start: June 26, 2024 Dr. Rivera Townsend DO Other Provider Active St art: June 26, 2024 Team Status: Inactive Member Role Status Dates Dr. Antoni Slaughter MD Primary Care Provider Active Start: July 02, 2024 End: July 02, 2024 Dr. Dayton Lewis MD Attending Provider Active S tart: July 02, 2024 End: July 02, 2024 MERON Page Referring Provider Active Start: July 02, 2024 End: July 02, 2024 Team Status: Active Member Role Status Dates Dr. Antoni Slaughter MD Primary Care Provider Active Start: July 02, 2024 Dr. Dayton Lewis MD Attending Provider Active S tart: July 02, 2024 Dr. Dayton Lewis MD Referring Provider Active S tart: July 02, 2024 Team Status: Inactive Member Role Status Dates Dr. Antoni Slaughter MD Primary Care Provider Active Start: July 04, 2024 End: July 04, 2024 Dr. Dayton Lewis MD Attending Provider Active S tart: July 04, 2024 End: July 04, 2024 Dr. Dayton Lewis MD Referring Provider Active S tart: July 04, 2024 End: July 04, 2024 Team Status: Inactive Member Role Status Dates Dr. Antoni Slaughter MD Primary Care Provider Active Start: July 17, 2024 End: July 17, 2024 MERON Page Attending Provider Active Start: July 17, 2024 End: July 17, 2024 MERON Page Referring Provider Active Start: July 17, 2024 End: July 17, 2024 Team Status: Inactive Member Role Status Dates Dr. Antoni Slaughter MD Primary Care Provider Active Start: August 04, 2024 End: August 04, 2024 Dr. Antoni Slaughter MD Attending Provider Active Start: August 04, 2024 End: August 04, 2024 Dr. Antoni Slaughter MD Referring Provider Active Start: August 04, 2024 End: August 04, 2024 Tugboat Mate Relationship Specialty Start Date End Date Antoni Slaughter MD [address] [place] [address] PCP - General Internal Medicine 07/18/24 Antoni Leach [address] [place] [address] Hematology/Oncology 07/29/24 Team Status: Inactive Member Role Status Dates Dr. Antoni Slaughter MD Primary Care Provider Active Start: September 04, 2024 End: September 04, 2024 Dr. Antoni Slaughter MD Referring Provider Active Start: September 04, 2024 End: September 04, 2024 Dr. Antoni Leach MD Attending Provider Active Start: September 04, 2024 End: September 04, 2024 Team Status: Active Member Role Status Dates Dr. Antoni Slaughter MD Primary Care Provider Active Start: September 04, 2024 Dr. Dayton Lewis MD Attending Provider Active S tart: September 04, 2024 Dr. Dayton Lewis MD Referring Provider Active S tart: September 04, 2024 Team Status: Inactive Member Role Status Dates Dr. Antoni Slaughter MD Primary Care Provider Active Start: September 08, 2024 End: September 08, 2024 Dr. Antoni Slaughter MD Referring Provider Active Start: September 08, 2024 End: September 08, 2024 Dr. Humberto Leigh MD Attending Provider Active Start: September 08, 2024 End: September 08, 2024 Team Status: Inactive Member Role Status Dates Dr. Antoni Slaughter MD Primary Care Provider Active Start: September 09, 2024 End: September 09, 2024 Dr. Antoni Slaughter MD Referring Provider Active Start: September 09, 2024 End: September 09, 2024 Ceci Hebert MIXING MACHINE TENDER CORK GASKET, MIXING MACHINE TENDER CORK GASKET-C Attending Provider Active Start: September 09, 2024 End: September 09, 2024 Team Status: Inactive Member Role Status Dates Dr. Antoni Slaughter MD Primary Care Provider Active Start: September 17, 2024 End: September 17, 2024 Dr. Antoni Slaughter MD Referring Provider Active Start: September 17, 2024 End: September 17, 2024 Dr. Humberto Leigh MD Attending Provider Active Start: September 17, 2024 End: September 17, 2024 Team Status: Active Member Role Status Dates Dr. Antoni Slaughter MD Primary Care Provider Active Start: September 17, 2024 Dr. Antoni Slaughter MD Referring Provider Active Start: September 17, 2024 Dr. Humberto Leigh MD Attending Provider Active Start: September 17, 2024 Dr. Humberto Leigh MD Other Provider Active Start: September 17, 2024 Team Status: Inactive Member Role Status Dates Dr. Antoni Slaughter MD Primary Care Provider Active Start: September 22, 2024 End: September 22, 2024 Dr. Antoni Slaughter MD Referring Provider Active Start: September 22, 2024 End: September 22, 2024 Dr. Antoni Leach MD Attending Provider Active Start: September 22, 2024 End: September 22, 2024 Team Status: Inactive Member Role Status Dates Dr. Antoni Slaughter MD Primary Care Provider Active Start: September 29, 2024 End: September 29, 2024 Dr. Antoni Slaughter MD Referring Provider Active Start: September 29, 2024 End: September 29, 2024 Ceci Hebert MIXING MACHINE TENDER CORK GASKET, MIXING MACHINE TENDER CORK GASKET-C Attending Provider Active Start: September 29, 2024 End: September 29, 2024 Team Status: Inactive Member Role Status Dates Dr. Antoni Slaughter MD Primary Care Provider Active Start: October 06, 2024 End: October 06, 2024 Dr. Antoni Slaughter MD Referring Provider Active Start: October 06, 2024 End: October 06, 2024 Dr. Antoni Leach MD Attending Provider Active Start: October 06, 2024 End: October 06, 2024 Team Status: Inactive Member Role Status Dates Dr. Antoni Slaughter MD Primary Care Provider Active Start: October 20, 2024 End: October 20, 2024 Dr. Antoni Slaughter MD Referring Provider Active Start: October 20, 2024 End: October 20, 2024 Ceci Hebert MIXING MACHINE TENDER CORK GASKET, MIXING MACHINE TENDER CORK GASKET-C Attending Provider Active Start: October 20, 2024 End: October 20, 2024 Team Status: Active Member Role Status Dates Dr. Antoni Slaughter MD Primary Care Provider Active Start: November 04, 2024 Dr. Dayton Lewis MD Attending Provider Active S tart: November 04, 2024 Dr. Dayton Lewis MD Referring Provider Active S tart: November 04, 2024 Team Status: Inactive Member Role Status Dates Dr. Antoni Slaughter MD Primary Care Provider Active Start: November 04, 2024 End: November 04, 2024 Dr. Antoni Slaughter MD Referring Provider Active Start: November 04, 2024 End: November 04, 2024 Ceci Hebert MIXING MACHINE TENDER CORK GASKET, MIXING MACHINE TENDER CORK GASKET-C Attending Provider Active Start: November 04, 2024 End: November 04, 2024 Team Status: Inactive Member Role Status Dates Dr. Antoni Slaughter MD Primary Care Provider Active Start: 2024 End: 2024 Dr. Antoni Slaughter MD Attending Provider Active Start: 2024 End: 2024 Dr. Antoni Slaughter MD Referring Provider Active Start: 2024 End: 2024 Team Status: Active Member Role Status Dates Dr. Antoni Slaughter MD Primary Care Provider Active Start: November 17, 2024 Dr. Dayton Lewis MD Attending Provider Active S tart: November 17, 2024 Dr. Dayton Lewis MD Referring Provider Active S tart: November 17, 2024 Team Status: Inactive Member Role Status Dates Dr. Antoni Slaughter MD Primary Care Provider Active Start: November 17, 2024 End: November 17, 2024 Dr. Antoni Slaughter MD Referring Provider Active Start: November 17, 2024 End: November 17, 2024 Ceci Hebert MIXING MACHINE TENDER CORK GASKET, MIXING MACHINE TENDER CORK GASKET-C Attending Provider Active Start: November 17, 2024 End: November 17, 2024 Team Status: Inactive Member Role Status Dates Dr. Antoni Slaughter MD Primary Care Provider Active Start: December 01, 2024 End: December 01, 2024 Dr. Antoni Slaughter MD Referring Provider Active Start: December 01, 2024 End: December 01, 2024 Dr. Antoni Leach MD Attending Provider Active Start: December 01, 2024 End: December 01, 2024 Team Status: Active Member Role Status Dates Dr. Antoni Slaughter MD Primary Care Provider Active Start: December 01, 2024 Dr. Dayton Lewis MD Attending Provider Active S tart: December 01, 2024 Dr. Dayton Lewis MD Referring Provider Active S tart: December 01, 2024 Goals (unrecognized section and content) Goals may be documented in a n alternate sectionGoals may be documented in an alternate section Source Comments (unrecognize d section and content) In the event this informatio n is protected by the Federal Confidentiality of Alcohol and Drug Abuse Patient Records regulations: The Federal rules restrict any use of the information to criminally investigate or prosecute any alcohol or drug abuse patient.[facility] the event this information is protected by the Federal Confidentiality of Alcohol and Drug Abuse Patient Records regulations: The Federal rules restrict any use of the information to criminally investigate or prosecute any alcohol or drug abuse patient.[facility] the event this information is protected by the Federal Confidentiality of Alcohol and Drug Abuse Patient Records regulations: The Federal rules restrict any use of the information to criminally investigate or prosecute any alcohol or drug abuse patient.[facility] the event this information is protected by the Federal Confidentiality of Alcohol and Drug Abuse Patient Records regulations: The Federal rules restrict any use of the information to criminally investigate or prosecute any alcohol or drug abuse patient.[facility] the event this information is protected by the Federal Confidentiality of Alcohol and Drug Abuse Patient Records regulations: The Federal rules restrict any use of the information to criminally investigate or prosecute any alcohol or drug abuse patient.[facility] the event this information is protected by the Federal Confidentiality of Alcohol and Drug Abuse Patient Records regulations: The Federal rules restrict any use of the information to criminally investigate or prosecute any alcohol or drug abuse patient.[facility] the event this information is protected by the Federal Confidentiality of Alcohol and Drug Abuse Patient Records regulations: The Federal rules restrict any use of the information to criminally investigate or prosecute any alcohol or drug abuse patient.[facility] the event this information is protected by the Federal Confidentiality of Alcohol and Drug Abuse Patient Records regulations: The Federal rules restrict any use of the information to criminally investigate or prosecute any alcohol or drug abuse patient.[facility] the event this information is protected by the Federal Confidentiality of Alcohol and Drug Abuse Patient Records regulations: The Federal rules restrict any use of the information to criminally investigate or prosecute any alcohol or drug abuse patient.[facility] Reason for Visit (unrecogniz ed section and content) Reason Comments New Patient Specialty Diagnoses / Procedures Referred By Contac t Referred To Contact General Surgery / GENERAL SURGERY Diagnoses Malignant neoplasm of rectum rectal mass Procedures OFFICE/OUTPATIENT NEW MODERATE MDM 45 MINUTES OFFICE/OUTPATIENT ESTABLISHED MOD MDM 30 MIN NEW PATIENT Self Vibha Flores MD [address] [id number] Referral ID Status Reason Start Date Expiration Date V isits Requested Visits Authorized [id number] Authorized 07/18/2024 06/10/2025 99 99 Reason Comments discuss surgery Specialty Diagnoses / Procedures Referred By Contpat t Referred To Contact General Surgery / GENERAL SURGERY Diagnoses Malignant neoplasm of rectum rectal mass Procedures OFFICE/OUTPATIENT NEW MODERATE MDM 45 MINUTES OFFICE/OUTPATIENT ESTABLISHED MOD MDM 30 MIN NEW PATIENT Self Vibha Flores MD [address] [id number] Phone: tel: fax:[phone] Reason Comments Patient Education Reason Comments Stoma Markings Marked RUQ, LUQ only Reason Onset Date Comments Produce Manager - Hospital Follow Up 08/19/2024 Reason Comments Post Op XI ROBOTIC LAPAROSCO PIC RESECTION COLON LOW ANTERIOR Reason Onset Date Comments Produce Manager - Hospital Follow Up 09/12/2024 FOR RECORDS PERTAINING TO PATIENTS WHO ARE OR HAVE BEEN ENROLLED IN A CHEMICAL DEPENDENCY/SUBSTANCEABUSE PROGRAM, SOME INFORMATION MAY BE OMITTED. This clinical summary was aggregated from multiple sources. Caution should be exercised in using it in the provision of clinical care. This summary normalizes information from multiple sources, and as a consequence, information in this document may materially change the coding, format and clinical context of patient data. In addition, data may be omitted in some cases. CLINICAL DECISIONS SHOULD BE BASED ON THE PRIMARY CLINICAL RECORDS. [employer] provides no warranty or guarantee of the accuracy or completeness of information in this document.
--- OUTSIDE RECORDS SUMMARY | 2024-12-23 21:39 | XMS RPT_ITS | CCD ---
Author Organization [facility] [employer]iniSynj Care Team Providers Care Burial Needs Salesperson Name Role Phone MORRO ALVARADO DPKylee Attending [...] Consulting Unavailable PROVIDER, UNKNOWN Consulting Unavailable Colby JUNIOR ELECTRICAL ENGINEER, JUNIOR ELECTRICAL ENGINEER-C Gideon Attending Provider [phone] Dr. Antoni Slaughter Primary Care Provider [phone] Dr. Antoni Slaughter Referring Provider [phone] Colby JUNIOR ELECTRICAL ENGINEER, JUNIOR ELECTRICAL ENGINEER-C Gideon Attending Provider [phone] Dr. Antoni [...] Provider Kasandra LOERA, Dr. Poole Referring Provider [phone] Joshua LOERA, Dr. Burris Attending Provider Joshua LOERA, Dr. Burris Referring Provider Kasandra LOERA, Dr. Poole Primary Care Provider Joshua LOERA, Dr. Burris Attending Provider Joshua LOERA, Dr. Burris Referring Provider Joshua [...] Unavailable Oleghe, Efewongbe Primary Care Unavailable Emilee JUNIOR ELECTRICAL ENGINEERCeci Attending Unavailable Oleghe, Efewongbe Primary Care Unavailable Oleghe, Efewongbe Referring Unavailable Antoni Leach Attending Unavailable FriendRivera Attending Unavailable FriendRivera Consulting Unavailable Oleghe, Efewongbe Primary Care Unavailable Oleghe, Efewongbe Referring Unavailable Oleghe, Efewongbe Referring Unavailable Oleghe, Efewongbe Primary Care Unavailable Humberto Leigh Attending Unavailable Humberto Leigh Consulting Unavailable Oleghe, Efewongbe Referring Unavailable Emilee JUNIOR ELECTRICAL ENGINEERCeci Attending Unavailable Oleghe, Efewongbe Primary Care Unavailable Oleghe, Efewongbe Attending Unavailable Oleghe, Efewongbe Primary Care Unavailable Oleghe, Efewongbe Referring Unavailable Sofia Cuadra Attending Unavailable Oleghe, Efewongbe Primary Care Unavailable Oleghe, Efewongbe Referring Unavailable Oleghe, Efewongbe Referring Unavailable Oleghe, Efewongbe Primary Care Unavailable Emilee JUNIOR ELECTRICAL ENGINEERCeci Attending Unavailable Oleghe, Efewongbe Attending Unavailable Oleghe, Efewongbe Referring Unavailable Oleghe, Efewongbe Primary Care Unavailable Oleghe, Efewongbe Referring Unavailable Oleghe, Efewongbe Primary Care Unavailable Emilee JUNIOR ELECTRICAL ENGINEERCeci Attending Unavailable Oleghe, Efewongbe Referring Unavailable Oleghe, Efewongbe Primary Care Unavailable Humberto Leigh Attending Unavailable Oleghe, Efewongbe Primary Care Unavailable Antoni Leach Attending Unavailable Oleghe, Efewongbe Referring Unavailable Allergies Allergy Classification Reported Allergen(s) Allergy Type Date of Onset Reaction(s) Facility (4 sources) oxaliplatin Drug Allergy 5 Chest tightness [facility] (1 source) oxaliplatin Drug Allergy 5 [facility] Repository Medications Current Medications Medication Drug [...] 04, 2020 10:34am take 1 capsule by [facility] once daily before breakfast levothyroxine 150 mcg [...] oral tablet (20 sources) alpha-Adrenergic Jill, beta-Adrenergic Jill Start: 03-04-2020 End: 10-27-2024 take 1 tablet [...] Auto (Unsp spec) [#/Vol] 1.59 10*3/uL 0.83-4.51 [facility] Absolute neutrophil countOrd ered By: Sarahvickie Leach on 12-01-2024 Neutrophils (Bld) [#/Vol] 2.9 10*3/uL 2.0-7.7 [facility] Anion gap in Serum or Plasma Ordered By: Antoni Leach on 12-01-2024 Anion gap [Moles/Vol] 14 mmol/L 5-15 [facility] Automated lymphocyte count a s percentage of total leukocytesOrdered By: Antoni Leach on 12-01-2024 Lymphocytes/100 WBC Auto (Unsp spec) 29.0 % - [facility] BUN/creatinine ratioOrdered By: [facility] on 12-01-2024 Urea nitrogen/Creatinine [Mass ratio] 15.8 mg/mg 10-20 [facility] Basophil percentageOrdered B y: Antoni Leach on 12-01-2024 Basophils/100 WBC (Bld) 1.1 % High 0-1 [facility] Bilirubin, totalOrdered By: Antoni Leach on 12-01-2024 Bilirubin [Mass/Vol] 0.42 mg/dL 0.00-1.30 [facility] Blood manual differential co mment interpretation (narrative result)Ordered By: Antoni Leach on 12-01-2024 Manual differential comment Jose David (Bld) [Interp] SCANNED [facility] CBC W/Diff, Automatedon 11-10 Anisocytosis Ql (Bld) 2+ Normal [facility] Comment on above: Performed By: #### L 100.0100, L500.4050, L501.5200 ####[facility] [address] [place], [place], [id number] ATYPICAL LYMPH 1+ Normal [facility] Comment on above: Performed By: #### L 100.0100, L500.4050, L501.5200 ####[facility] [address] [place], [address] SMEAR COMMENT SCANNED Normal [facility] Comment on above: Performed By: #### L 100.0100, L500.4050, L501.5200 ####[facility] [address] [place], [address] Carbon dioxide, total [Moles /volume] in Central venous bloodOrdered By: Antoni Leach on 12-01-2024 CO2 [Moles/Vol] 21.3 mmol/L 21.0-32.0 [facility] Chloride assayOrdered By: Lisa Leach on 12-01-2024 Chloride [Moles/Vol] 104 mmol/L 98-108 [facility] Comprehensive Metabolic Prof ilon 12-01-2024 Albumin [Mass/Vol] 3.9 g/dL Normal 3.4-4.8 [facility] Comment on above: Performed By: #### L 100.0100, L500.4050, L501.5200 ####[facility] [address] [place], [address] Albumin/Globulin [Mass ratio] 1.5 {ratio} Normal 0.9-2.4 [facility] Comment on above: Performed By: #### L 100.0100, L500.4050, L501.5200 ####[facility] [address] [place], [address] ALK PHOS 127 U/L High 35-104 [facility] Comment on above: Performed By: #### L 100.0100, L500.4050, L501.5200 ####[facility] [address] [place], [address] ALT [Catalytic activity/Vol] 18 U/L Normal <=34 [facility] Comment on above: Performed By: #### L 100.0100, L500.4050, L501.5200 ####[facility] [address] [place], [address] AST [Catalytic activity/Vol] 20 U/L Normal <=31 [facility] Comment on above: Performed By: #### L 100.0100, L500.4050, L501.5200 ####[facility] [address] [place], [address] Bilirubin [Mass/Vol] 0.42 mg/dL Normal 0.00-1.30 [facility] Comment on above: Performed By: #### L 100.0100, L500.4050, L501.5200 ####[facility] [address] [place], [address] BUN/CRE 15.8 RATIO Normal 10-20 [facility] Comment on above: Performed By: #### L 100.0100, L500.4050, L501.5200 ####[facility] [address] [place], [address] Calcium [Mass/Vol] 8.9 mg/dL Normal 7.6-11.0 [facility] Comment on above: Performed By: #### L 100.0100, L500.4050, L501.5200 ####[facility] [address] [place], [address] Chloride [Moles/Vol] 104 mmol/L Normal 98-108 [facility] Comment on above: Performed By: #### L 100.0100, L500.4050, L501.5200 ####[facility] [address] [place], [address] CO2 [Moles/Vol] 21.3 mmol/L Normal 21.0-32.0 [facility] Comment on above: Performed By: #### L 100.0100, L500.4050, L501.5200 ####[facility] [address] [place], [address] Creatinine [Mass/Vol] 0.98 mg/dL Normal 0.70-1.20 [facility] Comment on above: Performed By: #### L 100.0100, L500.4050, L501.5200 ####[facility] [address] [place], [address] ECRCL 66.45 ml/min Normal 50-250 [facility] Comment on above: Performed By: #### L 100.0100, L500.4050, L501.5200 ####[facility] [address] [place], [address] GAP 14 Normal 5-15 [facility] Comment on above: Performed By: #### L 100.0100, L500.4050, L501.5200 ####[facility] [address] [place], [address] GFR/1.73 sq M.predicted among non-blacks MDRD (S/P/Bld) [Vol rate/Area] 64 mL/min/{1.73_m2} Normal >60 [facility] Comment on above: Result Comment: mL/m in/1.73m2 CKD-EPI Creatinine Equation (2020) Performed By: #### L 100.0100, L500.4050, L501.5200 ####[facility] [address] [place], [address] Globulin (S) [Mass/Vol] 2.6 g/dL Normal 2.2-4.2 [facility] Comment on above: Performed By: #### L 100.0100, L500.4050, L501.5200 ####[facility] [address] [place], [address] Glucose [Mass/Vol] 118 mg/dL High 70-99 [facility] Comment on above: Performed By: #### L 100.0100, L500.4050, L501.5200 ####[facility] [address] [place], [address] Potassium [Moles/Vol] 3.8 mmol/L Normal 3.3-5.1 [facility] Comment on above: Performed By: #### L 100.0100, L500.4050, L501.5200 ####[facility] [address] [place], [address] Sodium [Moles/Vol] 140 mmol/L Normal 133-145 [facility] Comment on above: Performed By: #### L 100.0100, L500.4050, L501.5200 ####[facility] [address] [place], [address] T PROT 6.6 g/dL Normal 5.9-8.4 [facility] Comment on above: Performed By: #### L 100.0100, L500.4050, L501.5200 ####[facility] [address] [place], [address] Urea nitrogen [Mass/Vol] 15 mg/dL Normal 4-19 [facility] Comment on above: Performed By: #### L 100.0100, L500.4050, L501.5200 ####[facility] [address] [place], [address] Eosinophil percentageOrdered By: Antoni Leach on 12-01-2024 Eosinophils/100 WBC (Bld) 3.3 % 0-5 [facility] Erythrocyte distribution wid th ratioOrdered By: Antoni Leach on 12-01-2024 Erythrocyte distribution width (RBC) [Ratio] 20.3 % High 11.6-14.6 [facility] Erythrocyte distribution wid th standard deviationOrdered By: [facility] on 12-01-2024 Erythrocyte distribution width (RBC) [Ratio] 72.6 fl High 35.1-43.9 [facility] Glomerular filtration rate ( GFR) estimation/1.73 sq m using serum, plasma, or whole bOrdered By: Antoni Leach on 12-01-2024 GFR/1.73 sq M.predicted among non-blacks MDRD (S/P/Bld) [Vol rate/Area] 64 mL/min/{1.73_m2} >60 [facility] Comment on above: mL/min/1.73m2 CKD-EP I Creatinine Equation (2020) Hematocrit Auto (Bld) [Volum e fraction]Ordered By: Antoni Leach on 12-01-2024 Hematocrit (Bld) [Volume fraction] 32.0 % Low 37-47 [facility] Hemoglobin measurementOrdere d By: Antoni Leach on 12-01-2024 Hemoglobin (Bld) [Mass/Vol] 10.6 g/dL Low 12.0-15.0 [facility] Immature granulocytes/100 WB C Auto (Bld)Ordered By: [facility] on 12-01-2024 Immature granulocytes/100 WBC (Bld) 0.500 % 0.0-0.9 [facility] Comment on above: IG% - Immature Granu locytes (promyelocytes, myelocytes and metamyelocytes) > 1% indicates that a LEFT SHIFT is Present. Laboratory - Chemistry and C hemistry - challengeOrdered By: [facility] on 12-01-2024 AST [Catalytic activity/Vol] 20 U/L <32 [facility] Laboratory - Hematology and Cell countsOrdered By: [facility] on 12-01-2024 Anisocytosis Ql (Bld) 2+ [facility] MCV (mean corpuscular volume ) determinationOrdered By: Antoni Leach on 12-01-2024 MCV (RBC) [Entitic vol] 98.2 fL 81-99 [facility] Magnesiumon 12-01-2024 Magnesium [Mass/Vol] 2.2 mg/dL Normal 1.5-2.2 [facility] Comment on above: Performed By: #### L 100.0100, L500.4050, L501.5200 ####[facility] [address] [place], [place], [id number] Magnesium measurement (mass/ volume)Ordered By: Antoni Leach on 12-01-2024 Magnesium (Unsp spec) [Mass/Vol] 2.2 mg/dL 1.5-2.2 [facility] Mean corpuscular hemoglobin (MCH) determinationOrdered By: Antoni Leach on 12-01-2024 MCH (RBC) [Entitic mass] 32.5 pg High 27.0-32.0 [facility] Mean corpuscular hemoglobin concentration (MCHC) determinationOrdered By: Antoni Leach on 12-01-2024 MCHC (RBC) [Mass/Vol] 33.1 g/dL 32-36 [facility] Mean platelet volume determi nationOrdered By: Antoni Leach on 12-01-2024 Platelet mean volume (Bld) [Entitic vol] 10.6 fL 6.2-12.0 [facility] Monocyte percentageOrdered B y: Antoni Leach on 12-01-2024 Monocytes/100 WBC (Bld) 13.7 % High 0-10 [facility] Neutrophil percentageOrdered By: Antoni Leach on 12-01-2024 Neutrophils/100 WBC (Bld) 52.4 % 47-70 [facility] Nucleated red blood cell per centageOrdered By: Antoni Leach on 12-01-2024 Nucleated RBC/100 WBC (Bld) [Ratio] 0 % 0-5 [facility] Oncology Visit Reporton 11-10 Oncology Visit Report [facility] [facility] [address] [place] [address] OFFICE VISIT Date of Service: 12/01/24956 MR#: [id number] Acct: [id number] Name: TRUDY CALLE Rep #: [id number] : 1960 From: Antoni Leach MD Age/Sex: 64/F Location[place] [facility] [place] Status: Signed HPI Subjective Date of Service [...] Strictly speaking TNM staging, such as the [place] Joint Committee on Cancer (AJCC) 8th edition, [...] Apparent thickening (more content not included)... Normal [facility] Platelet countOrdered By: Lisa Leach on 12-01-2024 Platelets (Bld) [#/Vol] 208 10*3/uL 150-450 [facility] Potassium measurement (mass/ volume)Ordered By: Antoni Leach on 12-01-2024 Potassium (Unsp spec) [Mass/Vol] 3.8 mmol/L 3.3-5.1 [facility] RBC Auto (Bld) [#/Vol]Ordere d By: Antoni Leach on 12-01-2024 RBC (Bld) [#/Vol] 3.26 10*6/uL Low 4.2-5.4 [facility] Serum creatinine measurement (mass/volume)Ordered By: Antoni Leach on 12-01-2024 Creatinine [Mass/Vol] 0.98 mg/dL 0.70-1.20 [facility] Serum globulin measurementOr dered By: Antoni Leach on 12-01-2024 Globulin (S) [Mass/Vol] 2.6 g/dL 2.2-4.2 [facility] Serum glucose measurement (m ass/volume)Ordered By: Antoni Leach on 12-01-2024 Glucose [Mass/Vol] 118 mg/dL High 70-99 [facility] Serum or plasma alanine zhu otransferase (ALT) measurementOrdered By: Antoni Leach on 12-01-2024 ALT [Catalytic activity/Vol] 18 U/L <35 [facility] Serum or plasma albumin sourav urement (mass/volume)Ordered By: Antoni Leach on 12-01-2024 Albumin [Mass/Vol] 3.9 g/dL 3.4-4.8 [facility] Serum or plasma albumin/glob ulin mass ratioOrdered By: Antoni Leach on 12-01-2024 Albumin/Globulin [Mass ratio] 1.5 {ratio} 0.9-2.4 [facility] Serum or plasma alkaline omid sphatase measurementOrdered By: Antoni Leach on 12-01-2024 ALP [Catalytic activity/Vol] 127 U/L High 35-104 [facility] Serum or plasma calcium sourav urement (mass/volume)Ordered By: Antoni Leach on 12-01-2024 Calcium [Mass/Vol] 8.9 mg/dL 7.6-11.0 [facility] Serum or plasma urea nitroge n measurement (mass/volume)Ordered By: Antoni Leach on 12-01-2024 Urea nitrogen [Mass/Vol] 15 mg/dL 4-19 [facility] Sodium levelOrdered By: Sarah Leach on 12-01-2024 Sodium [Moles/Vol] 140 mmol/L 133-145 [facility] Total proteinOrdered By: Colby Leach on 12-01-2024 Protein [Mass/Vol] 6.6 g/dL 5.9-8.4 [facility] White blood cell (WBC) count Ordered By: Antoni Leach on 12-01-2024 WBC (Bld) [#/Vol] 5.5 10*3/uL 4.4-11.0 [facility] Absolute lymphocyte countOrd ered By: Antoni Leach on 11-17-2024 Lymphocytes Auto (Unsp spec) [#/Vol] 1.38 10*3/uL 0.83-4.51 [facility] Absolute neutrophil countOrd ered By: Antoni Leach on 11-17-2024 Neutrophils (Bld) [#/Vol] 2.3 10*3/uL 2.0-7.7 [facility] Anion gap in Serum or Plasma Ordered By: Antoni Leach on 11-17-2024 Anion gap [Moles/Vol] 12 mmol/L 5-15 [facility] Automated lymphocyte count a s percentage of total leukocytesOrdered By: [facility] Leach on 11-17-2024 Lymphocytes/100 WBC Auto (Unsp spec) 32.3 % 19-41 [facility] BUN/creatinine ratioOrdered By: [facility] Leach on 11-17-2024 Urea nitrogen/Creatinine [Mass ratio] 21.3 mg/mg High 10-20 [facility] Basophil percentageOrdered B y: Antoni Leach on 11-17-2024 Basophils/100 WBC (Bld) 0.7 % 0-1 [facility] Bilirubin, totalOrdered By: [facility] Le[facility] on 11-17-2024 Bilirubin [Mass/Vol] 0.46 mg/dL 0.00-1.30 [facility] CBC W/Diff, Automatedon Anisocytosis Ql (Bld) 2+ Normal [facility] Comment on above: Performed By: #### L 100.9950, L503.6550, L500.4050, L100.0100, L501.2300, L3100.2300, L501.5200, L503.6030 #### [facility] [address] [place] [address]. [place], [address] Carbon dioxide, total [Moles /volume] in Central venous bloodOrdered By: Antoni Leach on 11-17-2024 CO2 [Moles/Vol] 21.9 mmol/L 21.0-32.0 [facility] Chloride assayOrdered By: Lisa Leach on 11-17-2024 Chloride [Moles/Vol] 107 mmol/L 98-108 [facility] Comprehensive Metabolic Prof ilon 11-17-2024 Albumin [Mass/Vol] 3.8 g/dL Normal 3.4-4.8 [facility] Comment on above: Performed By: #### L 100.9950, L503.6550, L500.4050, L100.0100, L501.2300, L3100.2300, L501.5200, L503.6030 #### [facility] [address] [place], [address] Albumin/Globulin [Mass ratio] 1.6 {ratio} Normal 0.9-2.4 [facility] Comment on above: Performed By: #### L 100.9950, L503.6550, L500.4050, L100.0100, L501.2300, L3100.2300, L501.5200, L503.6030 #### [facility] [address] [place], [place], [address] ALK PHOS 118 U/L High 35-104 [facility] Comment on above: Performed By: #### L 100.9950, L503.6550, L500.4050, L100.0100, L501.2300, L3100.2300, L501.5200, L503.6030 #### [facility] [address] [place], [place], [address] ALT [Catalytic activity/Vol] 16 U/L Normal <=34 [facility] Comment on above: Performed By: #### L 100.9950, L503.6550, L500.4050, L100.0100, L501.2300, L3100.2300, L501.5200, L503.6030 #### [facility] [address] [place], [place], [address] AST [Catalytic activity/Vol] 18 U/L Normal <=31 [facility] Comment on above: Performed By: #### L 100.9950, L503.6550, L500.4050, L100.0100, L501.2300, L3100.2300, L501.5200, L503.6030 #### [facility] [address] [place], [address] Bilirubin [Mass/Vol] 0.46 mg/dL Normal 0.00-1.30 [facility] Comment on above: Performed By: #### L 100.9950, L503.6550, L500.4050, L100.0100, L501.2300, L3100.2300, L501.5200, L503.6030 #### [facility] [address] [place], [address] BUN/CRE 21.3 RATIO High 10-20 [facility] Comment on above: Performed By: #### L 100.9950, L503.6550, L500.4050, L100.0100, L501.2300, L3100.2300, L501.5200, L503.6030 #### [facility] [address] [place], [address] Calcium [Mass/Vol] 9.0 mg/dL Normal 7.6-11.0 [facility] Comment on above: Performed By: #### L 100.9950, L503.6550, L500.4050, L100.0100, L501.2300, L3100.2300, L501.5200, L503.6030 #### [facility] [address] [place], [address] Chloride [Moles/Vol] 107 mmol/L Normal 98-108 [facility] Comment on above: Performed By: #### L 100.9950, L503.6550, L500.4050, L100.0100, L501.2300, L3100.2300, L501.5200, L503.6030 #### [facility] [address] [place], [address] CO2 [Moles/Vol] 21.9 mmol/L Normal 21.0-32.0 [facility] Comment on above: Performed By: #### L 100.9950, L503.6550, L500.4050, L100.0100, L501.2300, L3100.2300, L501.5200, L503.6030 #### [facility] [address] [place], [address] (081) Creatinine [Mass/Vol] 0.87 mg/dL Normal 0.70-1.20 [facility] Comment on above: Performed By: #### L 100.9950, L503.6550, L500.4050, L100.0100, L501.2300, L3100.2300, L501.5200, L503.6030 #### [facility] [address] [place], [address] (987) ECRCL 75.37 ml/min Normal 50-250 [facility] Comment on above: Performed By: #### L 100.9950, L503.6550, L500.4050, L100.0100, L501.2300, L3100.2300, L501.5200, L503.6030 #### [facility] [address] [place], [address] GAP 12 Normal 5-15 [facility] Comment on above: Performed By: #### L 100.9950, L503.6550, L500.4050, L100.0100, L501.2300, L3100.2300, L501.5200, L503.6030 #### [facility] [address] [place], [address] (914) GFR/1.73 sq M.predicted among non-blacks MDRD (S/P/Bld) [Vol rate/Area] 73 mL/min/{1.73_m2} Normal >60 [facility] Comment on above: Result Comment: mL/m in/1.73m2 CKD-EPI Creatinine Equation (2020) Performed By: #### L 100.9950, L503.6550, L500.4050, L100.0100, L501.2300, L3100.2300, L501.5200, L503.6030 #### [facility] [address] [place], [address] Globulin (S) [Mass/Vol] 2.4 g/dL Normal 2.2-4.2 [facility] Comment on above: Performed By: #### L 100.9950, L503.6550, L500.4050, L100.0100, L501.2300, L3100.2300, L501.5200, L503.6030 #### [facility] [address] [place], [address] Glucose [Mass/Vol] 102 mg/dL High 70-99 [facility] Comment on above: Performed By: #### L 100.9950, L503.6550, L500.4050, L100.0100, L501.2300, L3100.2300, L501.5200, L503.6030 #### [facility] [address] [place], [address] Potassium [Moles/Vol] 3.8 mmol/L Normal 3.3-5.1 [facility] Comment on above: Performed By: #### L 100.9950, L503.6550, L500.4050, L100.0100, L501.2300, L3100.2300, L501.5200, L503.6030 #### [facility] [address] [place], [address] Sodium [Moles/Vol] 141 mmol/L Normal 133-145 [facility] Comment on above: Performed By: #### L 100.9950, L503.6550, L500.4050, L100.0100, L501.2300, L3100.2300, L501.5200, L503.6030 #### [facility] [address] [place], [place], [id number] T PROT 6.2 g/dL Normal 5.9-8.4 [facility] Comment on above: Performed By: #### L 100.9950, L503.6550, L500.4050, L100.0100, L501.2300, L3100.2300, L501.5200, L503.6030 #### [facility] [address] [place], [place], [address] Urea nitrogen [Mass/Vol] 19 mg/dL Normal 4-19 [facility] Comment on above: Performed By: #### L 100.9950, L503.6550, L500.4050, L100.0100, L501.2300, L3100.2300, L501.5200, L503.6030 #### [facility] [address] [place], [place], [address] Eosinophil percentageOrdered By: Antoni Leach on 11-17-2024 Eosinophils/100 WBC (Bld) 3.3 % 0-5 [facility] Erythrocyte distribution wid th ratioOrdered By: Antoni Leach on 11-17-2024 Erythrocyte distribution width (RBC) [Ratio] 19.9 % High 11.6-14.6 [facility] Erythrocyte distribution wid th standard deviationOrdered By: Antoni Leach on 11-17-2024 Erythrocyte distribution width (RBC) [Ratio] 66.8 fl High 35.1-43.9 [facility] Glomerular filtration rate ( GFR) estimation/1.73 sq m using serum, plasma, or whole bOrdered By: Antoni Leach on 11-17-2024 GFR/1.73 sq M.predicted among non-blacks MDRD (S/P/Bld) [Vol rate/Area] 73 mL/min/{1.73_m2} >60 [facility] Comment on above: mL/min/1.73m2 CKD-EP I Creatinine Equation (2021) Hematocrit Auto (Bld) [Volum e fraction]Ordered By: Antoni Leach on 11-17-2024 Hematocrit (Bld) [Volume fraction] 29.8 % Low 37-47 [facility] Hemoglobin measurementOrdere d By: Antoni Leach on 11-17-2024 Hemoglobin (Bld) [Mass/Vol] 10.0 g/dL Low 12.0-15.0 [facility] Immature granulocytes/100 WB C Auto (Bld)Ordered By: Antoni Leach on 11-17-2024 Immature granulocytes/100 WBC (Bld) 0.200 % 0.0-0.9 [facility] Comment on above: IG% - Immature Granu locytes (promyelocytes, myelocytes and metamyelocytes) > 1% indicates that a LEFT SHIFT is Present. Laboratory - Chemistry and C hemistry - challengeOrdered By: Antoni Leach on 11-17-2024 AST [Catalytic activity/Vol] 18 U/L <32 [facility] - Hematology and Cell countsOrdered By: Antoni Leach on 11-17-2024 Anisocytosis Ql (Bld) 2+ [facility] MCV (mean corpuscular volume ) determinationOrdered By: [facility] on 11-17-2024 MCV (RBC) [Entitic vol] 94.9 fL 81-99 [facility] Magnesiumon 11-17-2024 Magnesium [Mass/Vol] 2.0 mg/dL Normal 1.5-2.2 [facility] Comment on above: Performed By: #### L 100.9950, L503.6550, L500.4050, L100.0100, L501.2300, L3100.2300, L501.5200, L503.6030 #### [facility] [address] [place], [address] Magnesium measurement (mass/ volume)Ordered By: Antoni Leach on 11-17-2024 Magnesium (Unsp spec) [Mass/Vol] 2.0 mg/dL 1.5-2.2 [facility] Mean corpuscular hemoglobin (MCH) determinationOrdered By: Antoni Leach on 11-17-2024 MCH (RBC) [Entitic mass] 31.8 pg 27.0-32.0 [facility] Mean corpuscular hemoglobin concentration (MCHC) determinationOrdered By: Antoni Leach on 11-17-2024 MCHC (RBC) [Mass/Vol] 33.6 g/dL 32-36 [facility] Mean platelet volume determi nationOrdered By: [facility] Haylee on 11-17-2024 Platelet mean volume (Bld) [Entitic vol] 10.3 fL 6.2-12.0 [facility] Monocyte percentageOrdered B y: [facility] Haylee on 11-17-2024 Monocytes/100 WBC (Bld) 9.8 % 0-10 [facility] Neutrophil percentageOrdered By: [facility] on 11-17-2024 Neutrophils/100 WBC (Bld) 53.7 % 47-70 [facility] Nucleated red blood cell per centageOrdered By: [facility]uel on 11-17-2024 Nucleated RBC/100 WBC (Bld) [Ratio] 0 % 0-5 [facility] Oncology Visit Reporton Oncology Visit Report [facility] [place] [facility] [address] [place] [address] OFFICE VISIT Date of Service: 11/17/24902 MR#: [id number] Acct: [id number] Name: TRUDY CALLE Rep #: [id number] : 1960 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 Constipation. (more content not included)... Normal [facility] Platelet countOrdered By: Lisa Leach on 11-17-2024 Platelets (Bld) [#/Vol] 156 10*3/uL 150-450 [facility] Potassium measurement (mass/ volume)Ordered By: Antoni Leach on 11-17-2024 Potassium (Unsp spec) [Mass/Vol] 3.8 mmol/L 3.3-5.1 [facility] RBC Auto (Bld) [#/Vol]Ordere d By: Antoni Leach on 11-17-2024 RBC (Bld) [#/Vol] 3.14 10*6/uL Low 4.2-5.4 [facility] Serum creatinine measurement (mass/volume)Ordered By: Antoni Leach on 11-17-2024 Creatinine [Mass/Vol] 0.87 mg/dL 0.70-1.20 [facility] Serum globulin measurementOr dered By: Antoni Leach on 11-17-2024 Globulin (S) [Mass/Vol] 2.4 g/dL 2.2-4.2 [facility] Serum glucose measurement (m ass/volume)Ordered By: Antoni Leach on 11-17-2024 Glucose [Mass/Vol] 102 mg/dL High 70-99 [facility] Serum or plasma alanine zhu otransferase (ALT) measurementOrdered By: Antoni Leach on 11-17-2024 ALT [Catalytic activity/Vol] 16 U/L <35 [facility] Serum or plasma albumin sourav urement (mass/volume)Ordered By: Antoni Leach on 11-17-2024 Albumin [Mass/Vol] 3.8 g/dL 3.4-4.8 [facility] Serum or plasma albumin/glob ulin mass ratioOrdered By: Antoni Leach on 11-17-2024 Albumin/Globulin [Mass ratio] 1.6 {ratio} 0.9-2.4 [facility] Serum or plasma alkaline omid sphatase measurementOrdered By: Antoni Leach on 11-17-2024 ALP [Catalytic activity/Vol] 118 U/L High 35-104 [facility] Serum or plasma calcium sourav urement (mass/volume)Ordered By: Antoni Leach on 11-17-2024 Calcium [Mass/Vol] 9.0 mg/dL 7.6-11.0 [facility] Serum or plasma urea nitroge n measurement (mass/volume)Ordered By: Antoni Leach on 11-17-2024 Urea nitrogen [Mass/Vol] 19 mg/dL 4-19 [facility] Sodium levelOrdered By: Sarah Leach on 11-17-2024 Sodium [Moles/Vol] 141 mmol/L 133-145 [facility] Total proteinOrdered By: Colby Leach on 11-17-2024 Protein [Mass/Vol] 6.2 g/dL 5.9-8.4 [facility] White blood cell (WBC) count Ordered By: Antoni Leach on 11-17-2024 WBC (Bld) [#/Vol] 4.3 10*3/uL Low 4.4-11.0 [facility] Internal Medicine Office Vis sade 2024 Internal Medicine Office Visit [facility] [address] [place], [place] [address] OFFICE VISIT Date of Service: 11/05/24 MR#: [id number] Acct: [id number] Name: TRUDY CALLE Rep #: [id number] : 1960 Provider: Dr. Antoni judge MD Age/Sex: 64/F Location: [facility] Status: Signed Intake Vital Signs 08/04/24 08:08 [...] M FU Chief Complaint: Follow-up chronic conditions Category Director Required: No Accompanied by: Self Is patient [...] painful urination (more content not included)... Normal [facility] Thyroid Stim Hormone (TSH)on 2024 TSH 9.470 uIU/mL High 0.300-4.200 [facility] Comment on above: Performed By: #### L 501.9608 ####[facility] [address] [place], [address] Absolute lymphocyte countOrd ered By: Dayton Lewis on 11-04-2024 Lymphocytes Auto (Unsp spec) [#/Vol] 1.63 10*3/uL 0.83-4.51 [facility] Absolute neutrophil countOrd ered By: [facility] 11-04-2024 Neutrophils (Bld) [#/Vol] 1.9 10*3/uL Low 2.0-7.7 [facility] Anion gap in Serum or Plasma Ordered By: Dayton Lewis on 11-04-2024 Anion gap [Moles/Vol] 12 mmol/L 5-15 [facility] Automated lymphocyte count a s percentage of total leukocytesOrdered By: Dayton Lewis on 11-04-2024 Lymphocytes/100 WBC Auto (Unsp spec) 39.0 % - [facility] BUN/creatinine ratioOrdered By: [facility] on 11-04-2024 Urea nitrogen/Creatinine [Mass ratio] 22.1 mg/mg High 10-20 [facility] Basophil percentageOrdered B y: Dayton Lewis on 11-04-2024 Basophils/100 WBC (Bld) 1.0 % 0-1 [facility] Bilirubin, totalOrdered By: Dayton Lewis on 11-04-2024 Bilirubin [Mass/Vol] 0.37 mg/dL 0.00-1.30 [facility] Blood polychromasia detectio n by light microscopyOrdered By: Dayton Lewis on 11-04-2024 Polychromasia LM Ql (Bld) 1+ [facility] CBC W/Diff, Automatedon 10-10 PLT EST SLT DEC Normal ADEQ [facility] Comment on above: Performed By: #### L 501.5200, L500.4050, L100.0100 ####[facility] [address] [place], [address] POLYCHROMASIA 1+ Normal [facility] Comment on above: Performed By: #### L 501.5200, L500.4050, L100.0100 ####[facility] [address] [place], [address] Carbon dioxide, total [Moles /volume] in Central venous bloodOrdered By: Dayton Lewis on 11-04-2024 CO2 [Moles/Vol] 22.1 mmol/L 21.0-32.0 [facility] Chloride assayOrdered By: Chelsea Lewis on 11-04-2024 Chloride [Moles/Vol] 107 mmol/L 98-108 [facility] Comprehensive Metabolic Prof ilon 11-04-2024 Albumin [Mass/Vol] 3.9 g/dL Normal 3.4-4.8 [facility] Comment on above: Performed By: #### L 501.5200, L500.4050, L100.0100 ####[facility] [address] [place], [address] Albumin/Globulin [Mass ratio] 1.6 {ratio} Normal 0.9-2.4 [facility] Comment on above: Performed By: #### L 501.5200, L500.4050, L100.0100 ####[facility] [address] [place], [address] ALK PHOS 108 U/L High 35-104 [facility] Comment on above: Performed By: #### L 501.5200, L500.4050, L100.0100 ####[facility] [address] [place], [address] ALT [Catalytic activity/Vol] 15 U/L Normal <=34 [facility] Comment on above: Performed By: #### L 501.5200, L500.4050, L100.0100 ####[facility] [address] [place], [address] AST [Catalytic activity/Vol] 16 U/L Normal <=31 [facility] Comment on above: Performed By: #### L 501.5200, L500.4050, L100.0100 ####[facility] [address] [place], [address] Bilirubin [Mass/Vol] 0.37 mg/dL Normal 0.00-1.30 [facility] Comment on above: Performed By: #### L 501.5200, L500.4050, L100.0100 ####[facility] [address] [place], [address] BUN/CRE 22.1 RATIO High 10-20 [facility] Comment on above: Performed By: #### L 501.5200, L500.4050, L100.0100 ####[facility] [address] [place], [address] Calcium [Mass/Vol] 9.1 mg/dL Normal 7.6-11.0 [facility] Comment on above: Performed By: #### L 501.5200, L500.4050, L100.0100 ####[facility] [address] [place], [address] Chloride [Moles/Vol] 107 mmol/L Normal 98-108 [facility] Comment on above: Performed By: #### L 501.5200, L500.4050, L100.0100 ####[facility] [address] [place], [address] CO2 [Moles/Vol] 22.1 mmol/L Normal 21.0-32.0 [facility] Comment on above: Performed By: #### L 501.5200, L500.4050, L100.0100 ####[facility] [address] [place], [address] Creatinine [Mass/Vol] 0.90 mg/dL Normal 0.70-1.20 [facility] Comment on above: Performed By: #### L 501.5200, L500.4050, L100.0100 ####[facility] [address] [place], [address] ECRCL 73.40 ml/min Normal 50-250 [facility] Comment on above: Performed By: #### L 501.5200, L500.4050, L100.0100 ####[facility] [address] [place], [address] GAP 12 Normal 5-15 [facility] Comment on above: Performed By: #### L 501.5200, L500.4050, L100.0100 ####[facility] [address] [place], [address] GFR/1.73 sq M.predicted among non-blacks MDRD (S/P/Bld) [Vol rate/Area] 71 mL/min/{1.73_m2} Normal >60 [facility] Comment on above: Result Comment: mL/m in/1.73m2 CKD-EPI Creatinine Equation (2020) Performed By: #### L 501.5200, L500.4050, L100.0100 ####[facility] [address] [place], [address] Globulin (S) [Mass/Vol] 2.5 g/dL Normal 2.2-4.2 [facility] Comment on above: Performed By: #### L 501.5200, L500.4050, L100.0100 ####[facility] [address] [place], [address] Glucose [Mass/Vol] 152 mg/dL High 70-99 [facility] Comment on above: Performed By: #### L 501.5200, L500.4050, L100.0100 ####[facility] [address] [place], [address] Potassium [Moles/Vol] 3.6 mmol/L Normal 3.3-5.1 [facility] Comment on above: Performed By: #### L 501.5200, L500.4050, L100.0100 ####[facility] [address] [place], [address] Sodium [Moles/Vol] 141 mmol/L Normal 133-145 [facility] Comment on above: Performed By: #### L 501.5200, L500.4050, L100.0100 ####[facility] [address] [place], [address] T PROT 6.4 g/dL Normal 5.9-8.4 [facility] Comment on above: Performed By: #### L 501.5200, L500.4050, L100.0100 ####[facility] [address] [place], [address] Urea nitrogen [Mass/Vol] 20 mg/dL High 4-19 [facility] Comment on above: Performed By: #### L 501.5200, L500.4050, L100.0100 ####[facility] [address] [place], [address] Eosinophil percentageOrdered By: Dayton Lewis on 11-04-2024 Eosinophils/100 WBC (Bld) 4.5 % 0-5 [facility] Erythrocyte distribution wid th ratioOrdered By: Dayton Carson on 11-04-2024 Erythrocyte distribution width (RBC) [Ratio] 18.6 % High 11.6-14.6 [facility] Erythrocyte distribution wid th standard deviationOrdered By: [facility] on 11-04-2024 Erythrocyte distribution width (RBC) [Ratio] 61.0 fl High 35.1-43.9 [facility] Glomerular filtration rate ( GFR) estimation/1.73 sq m using serum, plasma, or whole bOrdered By: Dayton Yamileth on 11-04-2024 GFR/1.73 sq M.predicted among non-blacks MDRD (S/P/Bld) [Vol rate/Area] 71 mL/min/{1.73_m2} >60 [facility] Comment on above: mL/min/1.73m2 CKD-EP I Creatinine Equation (2020) Hematocrit Auto (Bld) [Volum e fraction]Ordered By: Dayton Carson on 11-04-2024 Hematocrit (Bld) [Volume fraction] 32.7 % Low 37-47 [facility] Hemoglobin measurementOrdere d By: [facility] on 11-04-2024 Hemoglobin (Bld) [Mass/Vol] 10.5 g/dL Low 12.0-15.0 [facility] Immature granulocytes/100 WB C Auto (Bld)Ordered By: Dayton Lewis on 11-04-2024 Immature granulocytes/100 WBC (Bld) 0.500 % 0.0-0.9 [facility] Comment on above: IG% - Immature Granu locytes (promyelocytes, myelocytes and metamyelocytes) > 1% indicates that a LEFT SHIFT is Present. Laboratory - Chemistry and C hemistry - challengeOrdered By: Dayton Yamileth on 11-04-2024 AST [Catalytic activity/Vol] 16 U/L <32 [facility] MCV (mean corpuscular volume ) determinationOrdered By: [facility] on 11-04-2024 MCV (RBC) [Entitic vol] 95.6 fL 81-99 [facility] Magnesiumon 11-04-2024 Magnesium [Mass/Vol] 2.1 mg/dL Normal 1.5-2.2 [facility] Comment on above: Performed By: #### L 501.5200, L500.4050, L100.0100 ####[facility] [address] [place], [address] Magnesium measurement (mass/ volume)Ordered By: [facility] on 11-04-2024 Magnesium (Unsp spec) [Mass/Vol] 2.1 mg/dL 1.5-2.2 [facility] Mean corpuscular hemoglobin (MCH) determinationOrdered By: [facility] on 11-04-2024 MCH (RBC) [Entitic mass] 30.7 pg 27.0-32.0 [facility] Mean corpuscular hemoglobin concentration (MCHC) determinationOrdered By: [facility] on 11-04-2024 MCHC (RBC) [Mass/Vol] 32.1 g/dL 32-36 [facility] Mean platelet volume determi nationOrdered By: [facility] on 11-04-2024 Platelet mean volume (Bld) [Entitic vol] 11.5 fL 6.2-12.0 [facility] Monocyte percentageOrdered B y: [facility] on 11-04-2024 Monocytes/100 WBC (Bld) 9.1 % 0-10 [facility] Neutrophil percentageOrdered By: [facility] on 11-04-2024 Neutrophils/100 WBC (Bld) 45.9 % Low 47-70 [facility] Nucleated red blood cell per centageOrdered By: [facility] on 11-04-2024 Nucleated RBC/100 WBC (Bld) [Ratio] 0 % 0-5 [facility] Oncology Visit Reporton 10-10 Oncology Visit Report [facility] [place] [facility] [address] [place] [address] OFFICE VISIT Date of Service: 11/04/24 0943 MR#: [id number] Acct: [id number] Name: TRUDY CALLE Rep #: [id number] : 1960 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 Ap (more content not included)... Normal [facility] Platelet countOrdered By: Chelsea Lewis on 11-04-2024 Platelets (Bld) [#/Vol] 121 10*3/uL Low 150-450 [facility] Platelet estimateOrdered By: Dayton Lewis on 11-04-2024 Platelets LM Ql (Bld) SLT DEC ADEQ [facility] Potassium measurement (mass/ volume)Ordered By: Dayton Lewis on 11-04-2024 Potassium (Unsp spec) [Mass/Vol] 3.6 mmol/L 3.3-5.1 [facility] RBC Auto (Bld) [#/Vol]Ordere d By: Dayton Lewis on 11-04-2024 RBC (Bld) [#/Vol] 3.42 10*6/uL Low 4.2-5.4 [facility] Serum creatinine measurement (mass/volume)Ordered By: Dayton Lewis on 11-04-2024 Creatinine [Mass/Vol] 0.90 mg/dL 0.70-1.20 [facility] Serum globulin measurementOr dered By: Dayton Lewis on 11-04-2024 Globulin (S) [Mass/Vol] 2.5 g/dL 2.2-4.2 [facility] Serum glucose measurement (m ass/volume)Ordered By: Dayton Lewis on 11-04-2024 Glucose [Mass/Vol] 152 mg/dL High 70-99 [facility] Serum or plasma alanine zhu otransferase (ALT) measurementOrdered By: Dayton Lewis on 11-04-2024 ALT [Catalytic activity/Vol] 15 U/L <35 [facility] Serum or plasma albumin sourav urement (mass/volume)Ordered By: Dayton Lewis on 11-04-2024 Albumin [Mass/Vol] 3.9 g/dL 3.4-4.8 [facility] Serum or plasma albumin/glob ulin mass ratioOrdered By: Dayton Lewis on 11-04-2024 Albumin/Globulin [Mass ratio] 1.6 {ratio} 0.9-2.4 [facility] Serum or plasma alkaline omid sphatase measurementOrdered By: Dayton Lewis on 11-04-2024 ALP [Catalytic activity/Vol] 108 U/L High 35-104 [facility] Serum or plasma calcium sourav urement (mass/volume)Ordered By: Dayton Lewis on 11-04-2024 Calcium [Mass/Vol] 9.1 mg/dL 7.6-11.0 [facility] Serum or plasma urea nitroge n measurement (mass/volume)Ordered By: Dayton Lewis on 11-04-2024 Urea nitrogen [Mass/Vol] 20 mg/dL High 4-19 [facility] Sodium levelOrdered By: Allen Lewis on 11-04-2024 Sodium [Moles/Vol] 141 mmol/L 133-145 [facility] TSH DL <= 0.005 mIU/L QnOrde red By: Antoni Slaughter on 11-04-2024 TSH Qn 9.470 uIU/mL High 0.300-4.200 [facility] Total proteinOrdered By: Eder renteria Joshua on 11-04-2024 Protein [Mass/Vol] 6.4 g/dL 5.9-8.4 [facility] White blood cell (WBC) count Ordered By: Dayton Joshua on 11-04-2024 WBC (Bld) [#/Vol] 4.2 10*3/uL Low 4.4-11.0 [facility] CBC W/Diff, Automatedon 10-09 Absolute Lymph 1.85 X10 3/uL Normal 0.83-4.51 [facility] Comment on above: Performed By: #### L 501.5200, L100.0100, L500.4050 ####[facility] [address] [place], [address] Absolute Neut 3.5 X10 3/uL Normal 2.0-7.7 [facility] Comment on above: Performed By: #### L 501.5200, L100.0100, L500.4050 ####[facility] [address] [place], [address] Basophils/100 WBC (Bld) 0.6 % Normal 0-1 [facility] Comment on above: Performed By: #### L 501.5200, L100.0100, L500.4050 ####[facility] [address] [place], [address] Eosinophils/100 WBC (Bld) 3.0 % Normal 0-5 [facility] Comment on above: Performed By: #### L 501.5200, L100.0100, L500.4050 ####[facility] [address] [place], [address] Erythrocyte distribution width (RBC) [Ratio] 16.0 % High 11.6-14.6 [facility] Comment on above: Performed By: #### L 501.5200, L100.0100, L500.4050 ####[facility] [address] [place], [address] Hematocrit (Bld) [Volume fraction] 33.0 % Low 37-47 [facility] Comment on above: Performed By: #### L 501.5200, L100.0100, L500.4050 ####[facility] [address] [place], [address] Hemoglobin (Bld) [Mass/Vol] 10.9 g/dL Low 12.0-15.0 [facility] Comment on above: Performed By: #### L 501.5200, L100.0100, L500.4050 ####[facility] [address] [place], [address] IG% 0.300 Normal 0.0-0.9 [facility] Comment on above: Result Comment: IG% - Immature Granulocytes (promyelocytes, myelocytes and metamyelocytes) > 1% indicates that a LEFT SHIFT is Present. Performed By: #### L 501.5200, L100.0100, L500.4050 ####[facility] [address] [place], [address] Lymphocytes/100 WBC (Bld) 29.6 % Normal 19-41 [facility] Comment on above: Performed By: #### L 501.5200, L100.0100, L500.4050 ####[facility] [address] [place], [address] MCH (RBC) [Entitic mass] 30.1 pg Normal 27.0-32.0 [facility] Comment on above: Performed By: #### L 501.5200, L100.0100, L500.4050 ####[facility] [address] [place], [address] MCHC (RBC) [Mass/Vol] 33.0 g/dL Normal 32-36 [facility] Comment on above: Performed By: #### L 501.5200, L100.0100, L500.4050 ####[facility] [address] [place], [address] MCV (RBC) [Entitic vol] 91.2 fL Normal 81-99 [facility] Comment on above: Performed By: #### L 501.5200, L100.0100, L500.4050 ####[facility] [address] [place], [address] Monocytes/100 WBC (Bld) 10.7 % High 0-10 [facility] Comment on above: Performed By: #### L 501.5200, L100.0100, L500.4050 ####[facility] [address] [place], [address] Neutrophils/100 WBC (Bld) 55.8 % Normal 47-70 [facility] Comment on above: Performed By: #### L 501.5200, L100.0100, L500.4050 ####[facility] [address] [place], [address] Nucleated RBC (Bld) [#/Vol] 0 10*3/uL Normal 0-5 [facility] Comment on above: Performed By: #### L 501.5200, L100.0100, L500.4050 ####[facility] [address] [place], [address] Platelet mean volume (Bld) [Entitic vol] 11.0 fL Normal 6.2-12.0 [facility] Comment on above: Performed By: #### L 501.5200, L100.0100, L500.4050 ####[facility] [address] [place], [address] Platelets (Bld) [#/Vol] 165 10*3/uL Normal 150-450 [facility] Comment on above: Performed By: #### L 501.5200, L100.0100, L500.4050 ####[facility] [address] [place], [address] RBC (Bld) [#/Vol] 3.62 10*6/uL Low 4.2-5.4 [facility] Comment on above: Performed By: #### L 501.5200, L100.0100, L500.4050 ####[facility] [address] [place], [address] RDW SD 49.3 fl High 35.1-43.9 [facility] Comment on above: Performed By: #### L 501.5200, L100.0100, L500.4050 ####[facility] [address] [place], [address] WBC (Bld) [#/Vol] 6.3 10*3/uL Normal 4.4-11.0 [facility] Comment on above: Performed By: #### L 501.5200, L100.0100, L500.4050 ####[facility] [address] [place], [address] Comprehensive Metabolic [facility] 10-20-2024 Albumin [Mass/Vol] 3.9 g/dL Normal 3.4-4.8 [facility] Comment on above: Performed By: #### L 501.5200, L100.0100, L500.4050 ####[facility] [address] [place], [address] Albumin/Globulin [Mass ratio] 1.5 {ratio} Normal 0.9-2.4 [facility] Comment on above: Performed By: #### L 501.5200, L100.0100, L500.4050 ####[facility] [address] [place], [address] ALK PHOS 115 U/L High 35-104 [facility] Comment on above: Performed By: #### L 501.5200, L100.0100, L500.4050 ####[facility] [address] [place], [address] ALT [Catalytic activity/Vol] 19 U/L Normal <=34 [facility] Comment on above: Performed By: #### L 501.5200, L100.0100, L500.4050 ####[facility] [address] [place], [address] AST [Catalytic activity/Vol] 17 U/L Normal <=31 [facility] Comment on above: Performed By: #### L 501.5200, L100.0100, L500.4050 ####[facility] [address] [place], [address] Bilirubin [Mass/Vol] 0.50 mg/dL Normal 0.00-1.30 [facility] Comment on above: Performed By: #### L 501.5200, L100.0100, L500.4050 ####[facility] [address] [place], [address] BUN/CRE 19.6 RATIO Normal 10-20 [facility] Comment on above: Performed By: #### L 501.5200, L100.0100, L500.4050 ####[facility] [address] [place], [address] Calcium [Mass/Vol] 9.3 mg/dL Normal 7.6-11.0 [facility] Comment on above: Performed By: #### L 501.5200, L100.0100, L500.4050 ####[facility] [address] [place], [address] Chloride [Moles/Vol] 102 mmol/L Normal 98-108 [facility] Comment on above: Performed By: #### L 501.5200, L100.0100, L500.4050 ####[facility] [address] [place], [address] CO2 [Moles/Vol] 23.5 mmol/L Normal 21.0-32.0 [facility] Comment on above: Performed By: #### L 501.5200, L100.0100, L500.4050 ####[facility] [address] [place], [address] Creatinine [Mass/Vol] 0.82 mg/dL Normal 0.70-1.20 [facility] Comment on above: Performed By: #### L 501.5200, L100.0100, L500.4050 ####[facility] [address] [place], [address] ECRCL 80.27 ml/min Normal 50-250 [facility] Comment on above: Performed By: #### L 501.5200, L100.0100, L500.4050 ####[facility] [address] [place], [address] GAP 12 Normal 5-15 [facility] Comment on above: Performed By: #### L 501.5200, L100.0100, L500.4050 ####[facility] [address] [place], [address] GFR/1.73 sq M.predicted among non-blacks MDRD (S/P/Bld) [Vol rate/Area] 80 mL/min/{1.73_m2} Normal >60 [facility] Comment on above: Result Comment: mL/m in/1.73m2 CKD-EPI Creatinine Equation (2020) Performed By: #### L 501.5200, L100.0100, L500.4050 ####[facility] [address] [place], [address] Globulin (S) [Mass/Vol] 2.6 g/dL Normal 2.2-4.2 [facility] Comment on above: Performed By: #### L 501.5200, L100.0100, L500.4050 ####[facility] [address] [place], [address] Glucose [Mass/Vol] 105 mg/dL High 70-99 [facility] Comment on above: Performed By: #### L 501.5200, L100.0100, L500.4050 ####[facility] [address] [place], [address] Potassium [Moles/Vol] 3.6 mmol/L Normal 3.3-5.1 [facility] Comment on above: Performed By: #### L 501.5200, L100.0100, L500.4050 ####[facility] [address] [place], [address] Sodium [Moles/Vol] 137 mmol/L Normal 133-145 [facility] Comment on above: Performed By: #### L 501.5200, L100.0100, L500.4050 ####[facility] [address] [place], [address] T PROT 6.4 g/dL Normal 5.9-8.4 [facility] Comment on above: Performed By: #### L 501.5200, L100.0100, L500.4050 ####[facility] [address] [place], [address] Urea nitrogen [Mass/Vol] 16 mg/dL Normal 4-19 [facility] Comment on above: Performed By: #### L 501.5200, L100.0100, L500.4050 ####[facility] [address] [place], [address] Magnesiumon 10-20-2024 Magnesium [Mass/Vol] 2.1 mg/dL Normal 1.5-2.2 [facility] Comment on above: Performed By: #### L 501.5200, L100.0100, L500.4050 ####[facility] [address] [place], [address] Oncology Visit Reporton 10-09 Oncology Visit Report [facility] [address] 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 Normal [facility] CBC W/Diff, Automatedon 04- Absolute Lymph 1.62 X10 3/uL Normal 0.83-4.51 [facility] Comment on above: Performed By: #### L 100.9950, L503.6550, L500.4050, L100.0100, L501.2300, L3100.2300, L501.5200, L503.6030 #### [facility] [address] [place], [address] Absolute Neut 2.0 X10 3/uL Normal 2.0-7.7 [facility] Comment on above: Performed By: #### L 100.9950, L503.6550, L500.4050, L100.0100, L501.2300, L3100.2300, L501.5200, L503.6030 #### [facility] [address] [place], [address] Basophils/100 WBC (Bld) 0.9 % Normal 0-1 [facility] Comment on above: Performed By: #### L 100.9950, L503.6550, L500.4050, L100.0100, L501.2300, L3100.2300, L501.5200, L503.6030 #### [facility] [address] [place], [address] Eosinophils/100 WBC (Bld) 9.4 % High 0-5 [facility] Comment on above: Performed By: #### L 100.9950, L503.6550, L500.4050, L100.0100, L501.2300, L3100.2300, L501.5200, L503.6030 #### [facility] [address] [place], [address] (500) Erythrocyte distribution width (RBC) [Ratio] 14.0 % Normal 11.6-14.6 [facility] Comment on above: Performed By: #### L 100.9950, L503.6550, L500.4050, L100.0100, L501.2300, L3100.2300, L501.5200, L503.6030 #### [facility] [address] [place], [address] (597) Hematocrit (Bld) [Volume fraction] 32.3 % Low 37-47 [facility] Comment on above: Performed By: #### L 100.9950, L503.6550, L500.4050, L100.0100, L501.2300, L3100.2300, L501.5200, L503.6030 #### [facility] [address] [place], [address] (240) Hemoglobin (Bld) [Mass/Vol] 10.8 g/dL Low 12.0-15.0 [facility] Comment on above: Performed By: #### L 100.9950, L503.6550, L500.4050, L100.0100, L501.2300, L3100.2300, L501.5200, L503.6030 #### [facility] [address] [place], [address] ( IG% 0.200 Normal 0.0-0.9 [facility] Comment on above: Result Comment: IG% - Immature Granulocytes (promyelocytes, myelocytes and metamyelocytes) > 1% indicates that a LEFT SHIFT is Present. Performed By: #### L 100.9950, L503.6550, L500.4050, L100.0100, L501.2300, L3100.2300, L501.5200, L503.6030 #### [facility] [address] [place], [address] Lymphocytes/100 WBC (Bld) 34.8 % Normal 19-41 [facility] Comment on above: Performed By: #### L 100.9950, L503.6550, L500.4050, L100.0100, L501.2300, L3100.2300, L501.5200, L503.6030 #### [facility] [address] [facility] [place], [address] MCH (RBC) [Entitic mass] 30.3 pg Normal 27.0-32.0 [facility] Comment on above: Performed By: #### L 100.9950, L503.6550, L500.4050, L100.0100, L501.2300, L3100.2300, L501.5200, L503.6030 #### [facility] [address] [place], [address] MCHC (RBC) [Mass/Vol] 33.4 g/dL Normal 32-36 [facility] Comment on above: Performed By: #### L 100.9950, L503.6550, L500.4050, L100.0100, L501.2300, L3100.2300, L501.5200, L503.6030 #### [facility] [address] [place], [address] MCV (RBC) [Entitic vol] 90.7 fL Normal 81-99 [facility] Comment on above: Performed By: #### L 100.9950, L503.6550, L500.4050, L100.0100, L501.2300, L3100.2300, L501.5200, L503.6030 #### [facility] [address] [place], [address] Monocytes/100 WBC (Bld) 11.8 % High 0-10 [facility] Comment on above: Performed By: #### L 100.9950, L503.6550, L500.4050, L100.0100, L501.2300, L3100.2300, L501.5200, L503.6030 #### [facility] [address] [place], [address] Neutrophils/100 WBC (Bld) 42.9 % Low 47-70 [facility] Comment on above: Performed By: #### L 100.9950, L503.6550, L500.4050, L100.0100, L501.2300, L3100.2300, L501.5200, L503.6030 #### [facility] [address] [place], [address] Nucleated RBC (Bld) [#/Vol] 0 10*3/uL Normal 0-5 [facility] Comment on above: Performed By: #### L 100.9950, L503.6550, L500.4050, L100.0100, L501.2300, L3100.2300, L501.5200, L503.6030 #### [facility] [address] [place], [address] Platelet mean volume (Bld) [Entitic vol] 10.5 fL Normal 6.2-12.0 [facility] Comment on above: Performed By: #### L 100.9950, L503.6550, L500.4050, L100.0100, L501.2300, L3100.2300, L501.5200, L503.6030 #### [facility] [address] [place], [address] Platelets (Bld) [#/Vol] 181 10*3/uL Normal 150-450 [facility] Comment on above: Performed By: #### L 100.9950, L503.6550, L500.4050, L100.0100, L501.2300, L3100.2300, L501.5200, L503.6030 #### [facility] [address] [place], [address] RBC (Bld) [#/Vol] 3.56 10*6/uL Low 4.2-5.4 [facility] Comment on above: Performed By: #### L 100.9950, L503.6550, L500.4050, L100.0100, L501.2300, L3100.2300, L501.5200, L503.6030 #### [facility] [address] [place], [address] RDW SD 45.5 fl High 35.1-43.9 [facility] Comment on above: Performed By: #### L 100.9950, L503.6550, L500.4050, L100.0100, L501.2300, L3100.2300, L501.5200, L503.6030 #### [facility] [address] [place], [address] WBC (Bld) [#/Vol] 4.7 10*3/uL Normal 4.4-11.0 [facility] Comment on above: Performed By: #### L 100.9950, L503.6550, L500.4050, L100.0100, L501.2300, L3100.2300, L501.5200, L503.6030 #### [facility] [address] [place], [address] Comprehensive Metabolic Prof ilon 10-06-2024 Albumin [Mass/Vol] 3.9 g/dL Normal 3.4-4.8 [facility] Comment on above: Performed By: #### L 100.9950, L503.6550, L500.4050, L100.0100, L501.2300, L3100.2300, L501.5200, L503.6030 #### [facility] [address] [place], [place], [address] Albumin/Globulin [Mass ratio] 1.4 {ratio} Normal 0.9-2.4 [facility] Comment on above: Performed By: #### L 100.9950, L503.6550, L500.4050, L100.0100, L501.2300, L3100.2300, L501.5200, L503.6030 #### [facility] [address] [place], [place], [address] ALK PHOS 114 U/L High 35-104 [facility] Comment on above: Performed By: #### L 100.9950, L503.6550, L500.4050, L100.0100, L501.2300, L3100.2300, L501.5200, L503.6030 #### [facility] [address] [place], [address] ALT [Catalytic activity/Vol] 13 U/L Normal <=34 [facility] Comment on above: Performed By: #### L 100.9950, L503.6550, L500.4050, L100.0100, L501.2300, L3100.2300, L501.5200, L503.6030 #### [facility] [address] [place], [place], [address] AST [Catalytic activity/Vol] 18 U/L Normal <=31 [facility] Comment on above: Performed By: #### L 100.9950, L503.6550, L500.4050, L100.0100, L501.2300, L3100.2300, L501.5200, L503.6030 #### [facility] [address] [place], [address] Bilirubin [Mass/Vol] 0.53 mg/dL Normal 0.00-1.30 [facility] Comment on above: Performed By: #### L 100.9950, L503.6550, L500.4050, L100.0100, L501.2300, L3100.2300, L501.5200, L503.6030 #### [facility] [address] [place], [address] BUN/CRE 12.8 RATIO Normal 10-20 [facility] Comment on above: Performed By: #### L 100.9950, L503.6550, L500.4050, L100.0100, L501.2300, L3100.2300, L501.5200, L503.6030 #### [facility] [address] [place], [address] Calcium [Mass/Vol] 9.0 mg/dL Normal 7.6-11.0 [facility] Comment on above: Performed By: #### L 100.9950, L503.6550, L500.4050, L100.0100, L501.2300, L3100.2300, L501.5200, L503.6030 #### [facility] [address] [place], [address] Chloride [Moles/Vol] 104 mmol/L Normal 98-108 [facility] Comment on above: Performed By: #### L 100.9950, L503.6550, L500.4050, L100.0100, L501.2300, L3100.2300, L501.5200, L503.6030 #### [facility] [address] [place], [address] CO2 [Moles/Vol] 23.5 mmol/L Normal 21.0-32.0 [facility] Comment on above: Performed By: #### L 100.9950, L503.6550, L500.4050, L100.0100, L501.2300, L3100.2300, L501.5200, L503.6030 #### [facility] [address] [place], [place], [id number] Creatinine [Mass/Vol] 0.92 mg/dL Normal 0.70-1.20 [facility] Comment on above: Performed By: #### L 100.9950, L503.6550, L500.4050, L100.0100, L501.2300, L3100.2300, L501.5200, L503.6030 #### [facility] [address] [place], [place], [phone] (602) ECRCL 71.02 ml/min Normal 50-250 [facility] Comment on above: Performed By: #### L 100.9950, L503.6550, L500.4050, L100.0100, L501.2300, L3100.2300, L501.5200, L503.6030 #### [facility] [address] [place], [address] GAP 13 Normal 5-15 [facility] Comment on above: Performed By: #### L 100.9950, L503.6550, L500.4050, L100.0100, L501.2300, L3100.2300, L501.5200, L503.6030 #### [facility] [address] [place], [place], [address] GFR/1.73 sq M.predicted among non-blacks MDRD (S/P/Bld) [Vol rate/Area] 69 mL/min/{1.73_m2} Normal >60 [facility] Comment on above: Result Comment: mL/m in/1.73m2 CKD-EPI Creatinine Equation (2020) Performed By: #### L 100.9950, L503.6550, L500.4050, L100.0100, L501.2300, L3100.2300, L501.5200, L503.6030 #### [facility] [address] [place], [address] Globulin (S) [Mass/Vol] 2.7 g/dL Normal 2.2-4.2 [facility] Comment on above: Performed By: #### L 100.9950, L503.6550, L500.4050, L100.0100, L501.2300, L3100.2300, L501.5200, L503.6030 #### [facility] [address] [place], [address] Glucose [Mass/Vol] 113 mg/dL High 70-99 [facility] Comment on above: Performed By: #### L 100.9950, L503.6550, L500.4050, L100.0100, L501.2300, L3100.2300, L501.5200, L503.6030 #### [facility] [address] [place], [address] Potassium [Moles/Vol] 3.5 mmol/L Normal 3.3-5.1 [facility] Comment on above: Performed By: #### L 100.9950, L503.6550, L500.4050, L100.0100, L501.2300, L3100.2300, L501.5200, L503.6030 #### [facility] [address] [place], [address] Sodium [Moles/Vol] 141 mmol/L Normal 133-145 [facility] Comment on above: Performed By: #### L 100.9950, L503.6550, L500.4050, L100.0100, L501.2300, L3100.2300, L501.5200, L503.6030 #### [facility] [address] [place], [address] T PROT 6.7 g/dL Normal 5.9-8.4 [facility] Comment on above: Performed By: #### L 100.9950, L503.6550, L500.4050, L100.0100, L501.2300, L3100.2300, L501.5200, L503.6030 #### [facility] [address] [place], [address] Urea nitrogen [Mass/Vol] 12 mg/dL Normal 4-19 [facility] Comment on above: Performed By: #### L 100.9950, L503.6550, L500.4050, L100.0100, L501.2300, L3100.2300, L501.5200, L503.6030 #### [facility] [address] [place], [address] Magnesiumon 10-06-2024 Magnesium [Mass/Vol] 2.4 mg/dL High 1.5-2.2 [facility] Comment on above: Performed By: #### L 100.9950, L503.6550, L500.4050, L100.0100, L501.2300, L3100.2300, L501.5200, L503.6030 #### [facility] [address] [place], [address] Oncology Visit Reporton 09-10 Oncology Visit Report [facility] [address] [facility] [place] [address] OFFICE VISIT Date of Service: 10/06/24928 MR#: [id number] Acct: [id number] Name: TRUDY CALLE Rep #: [id number] : 1960 From: Antoni Lecah MD Age/Sex: 63/F Location: [facility] Status: Signed HPI Subjective Date of Service [...] Strictly speaking TNM staging, such as the [place] Joint Committee on Cancer (AJCC) 8th edition, [...] Apparent thickening (more content not included)... Normal [facility] Phosphoruson 10-06-2024 Phosphate [Mass/Vol] 3.1 mg/dL Normal 2.7-4.5 [facility] Comment on above: Performed By: #### L 501.2300 ####[facility] [address] [place], [place], [address] Basic Metabolic Profile (BMP )on 09-29-2024 BUN/CRE 26.6 RATIO High 10-20 [facility] Comment on above: Performed By: #### L 501.2300, L501.5200, L100.0100, L500.2500 ####[facility] [address] [place], [address] Calcium [Mass/Vol] 9.2 mg/dL Normal 7.6-11.0 [facility] Comment on above: Performed By: #### L 501.2300, L501.5200, L100.0100, L500.2500 ####[facility] [address] [place], [address] Chloride [Moles/Vol] 98 mmol/L Normal 98-108 [facility] Comment on above: Performed By: #### L 501.2300, L501.5200, L100.0100, L500.2500 ####[facility] [address] [place], [address] CO2 [Moles/Vol] 24.2 mmol/L Normal 21.0-32.0 [facility] Comment on above: Performed By: #### L 501.2300, L501.5200, L100.0100, L500.2500 ####[facility] [address] [place], [address] Creatinine [Mass/Vol] 0.95 mg/dL Normal 0.70-1.20 [facility] Comment on above: Performed By: #### L 501.2300, L501.5200, L100.0100, L500.2500 ####[facility] [address] [place], [address] ECRCL 68.78 ml/min Normal 50-250 [facility] Comment on above: Performed By: #### L 501.2300, L501.5200, L100.0100, L500.2500 ####[facility] [address] [place], [address] GAP 12 Normal 5-15 [facility] Comment on above: Performed By: #### L 501.2300, L501.5200, L100.0100, L500.2500 ####[facility] [address] [place], [address] GFR/1.73 sq M.predicted among non-blacks MDRD (S/P/Bld) [Vol rate/Area] 67 mL/min/{1.73_m2} Normal >60 [facility] Comment on above: Result Comment: mL/m in/1.73m2 CKD-EPI Creatinine Equation (2020) Performed By: #### L 501.2300, L501.5200, L100.0100, L500.2500 ####[facility] [address] [place], [address] Glucose [Mass/Vol] 128 mg/dL High 70-99 [facility] Comment on above: Performed By: #### L 501.2300, L501.5200, L100.0100, L500.2500 ####[facility] [address] [place], [address] Potassium [Moles/Vol] 3.4 mmol/L Normal 3.3-5.1 [facility] Comment on above: Performed By: #### L 501.2300, L501.5200, L100.0100, L500.2500 ####[facility] [address] [place], [address] Sodium [Moles/Vol] 135 mmol/L Normal 133-145 [facility] Comment on above: Performed By: #### L 501.2300, L501.5200, L100.0100, L500.2500 ####[facility] [address] [place], [address] Urea nitrogen [Mass/Vol] 25 mg/dL High 4-19 [facility] Comment on above: Performed By: #### L 501.2300, L501.5200, L100.0100, L500.2500 ####[facility] [address] [place], [address] CBC W/Diff, Automatedon 04-2 Absolute Lymph 1.23 X10 3/uL Normal 0.83-4.51 [facility] Comment on above: Performed By: #### L 501.2300, L501.5200, L100.0100, L500.2500 ####[facility] [address] [place], [address] Absolute Neut 4.6 X10 3/uL Normal 2.0-7.7 [facility] Comment on above: Performed By: #### L 501.2300, L501.5200, L100.0100, L500.2500 ####[facility] [address] [place], [address] Basophils/100 WBC (Bld) 0.4 % Normal 0-1 [facility] Comment on above: Performed By: #### L 501.2300, L501.5200, L100.0100, L500.2500 ####[facility] [address] [place], [address] Eosinophils/100 WBC (Bld) 10.0 % High 0-5 [facility] Comment on above: Performed By: #### L 501.2300, L501.5200, L100.0100, L500.2500 ####[facility] [address] [place], [address] Erythrocyte distribution width (RBC) [Ratio] 13.5 % Normal 11.6-14.6 [facility] Comment on above: Performed By: #### L 501.2300, L501.5200, L100.0100, L500.2500 ####[facility] [address] [place], [address] Hematocrit (Bld) [Volume fraction] 36.5 % Low 37-47 [facility] Comment on above: Performed By: #### L 501.2300, L501.5200, L100.0100, L500.2500 ####[facility] [address] [place], [address] Hemoglobin (Bld) [Mass/Vol] 12.5 g/dL Normal 12.0-15.0 [facility] Comment on above: Performed By: #### L 501.2300, L501.5200, L100.0100, L500.2500 ####[facility] [address] [place], [address] IG% 0.600 Normal 0.0-0.9 [facility] Comment on above: Result Comment: IG% - Immature Granulocytes (promyelocytes, myelocytes and metamyelocytes) > 1% indicates that a LEFT SHIFT is Present. Performed By: #### L 501.2300, L501.5200, L100.0100, L500.2500 ####[facility] [address] [place], [address] Lymphocytes/100 WBC (Bld) 17.8 % Low 19-41 [facility] Comment on above: Performed By: #### L 501.2300, L501.5200, L100.0100, L500.2500 ####[facility] [address] [place], [address] MCH (RBC) [Entitic mass] 30.3 pg Normal 27.0-32.0 [facility] Comment on above: Performed By: #### L 501.2300, L501.5200, L100.0100, L500.2500 ####[facility] [address] [place], [address] MCHC (RBC) [Mass/Vol] 34.2 g/dL Normal 32-36 [facility] Comment on above: Performed By: #### L 501.2300, L501.5200, L100.0100, L500.2500 ####[facility] [address] [place], [address] MCV (RBC) [Entitic vol] 88.6 fL Normal 81-99 [facility] Comment on above: Performed By: #### L 501.2300, L501.5200, L100.0100, L500.2500 ####[facility] [address] [place], [address] Monocytes/100 WBC (Bld) 4.2 % Normal 0-10 [facility] Comment on above: Performed By: #### L 501.2300, L501.5200, L100.0100, L500.2500 ####[facility] [address] [place], [address] Neutrophils/100 WBC (Bld) 67.0 % Normal 47-70 [facility] Comment on above: Performed By: #### L 501.2300, L501.5200, L100.0100, L500.2500 ####[facility] [address] [place], [address] Nucleated RBC (Bld) [#/Vol] 0 10*3/uL Normal 0-5 [facility] Comment on above: Performed By: #### L 501.2300, L501.5200, L100.0100, L500.2500 ####[facility] [address] [place], [address] Platelet mean volume (Bld) [Entitic vol] 11.4 fL Normal 6.2-12.0 [facility] Comment on above: Performed By: #### L 501.2300, L501.5200, L100.0100, L500.2500 ####[facility] [address] [place], [address] Platelets (Bld) [#/Vol] 204 10*3/uL Normal 150-450 [facility] Comment on above: Performed By: #### L 501.2300, L501.5200, L100.0100, L500.2500 ####[facility] [address] [place], [address] RBC (Bld) [#/Vol] 4.12 10*6/uL Low 4.2-5.4 [facility] Comment on above: Performed By: #### L 501.2300, L501.5200, L100.0100, L500.2500 ####[facility] [address] [place], [address] RDW SD 43.9 fl Normal 35.1-43.9 [facility] Comment on above: Performed By: #### L 501.2300, L501.5200, L100.0100, L500.2500 ####[facility] [address] [place], [address] WBC (Bld) [#/Vol] 6.9 10*3/uL Normal 4.4-11.0 [facility] Comment on above: Performed By: #### L 501.2300, L501.5200, L100.0100, L500.2500 ####[facility] [address] [place], [address] Magnesiumon 09-29-2024 Magnesium [Mass/Vol] 2.1 mg/dL Normal 1.5-2.2 [facility] Comment on above: Performed By: #### L 501.2300, L501.5200, L100.0100, L500.2500 ####[facility] [address] [place], [address] Oncology Visit Reporton 09-10 Oncology Visit Report [facility] [address] [place] [address] OFFICE VISIT Date of Service: 09/29/24 0950 MR#: [id number] Acct: [id number] Name: TRUDY CALLE Rep #: [id number] : 1960 From: Ceci Hebert NP [employer] -C Age/Sex: 63/F Location: [facility] Status: Signed HPI Subjective Date of Service [...] Strictly speaking TNM staging, such as the [place] [employer] on Cancer (AJCC) 8th edition, [...] Apparent thicke (more content not included)... Normal [facility] Phosphoruson 09-29-2024 Phosphate [Mass/Vol] 2.2 mg/dL Low 2.7-4.5 [facility] Comment on above: Performed By: #### L 501.2300, L501.5200, L100.0100, L500.2500 ####[facility] [address] [place], [address] Carcinoembryonic Antigenon 0 - CEA 3.8 ng/mL Normal 0.0-4.7 [facility] Comment on above: Order Comment: ADD O N FROM EARLIER LABS Result Comment: Nons mokers <3.9 Smokers <5.6 [facility] Electrochemiluminescence Immunoassay (ECLIA) Values obtained with different assay methods or kits cannot be used interchangeably. Results cannot be interpreted as absolute evidence of the presence or absence of malignant disease. Performed at: [facility] [id number] Screener And Blender: Osei Busch PhD, Phone: [phone] Performed By: #### L 100.9950, L503.6550, L500.4050, L100.0100, L501.2300, L3100.2300, L501.5200, L503.6030 #### [facility] [address] [place], [address] CBC W/Diff, Automatedon 04-1 Absolute Lymph 1.57 X10 3/uL Normal 0.83-4.51 [facility] Comment on above: Performed By: #### L 500.4050, L501.5200, L100.0100 ####[facility] [address] [place], [address] Absolute Neut 4.3 X10 3/uL Normal 2.0-7.7 [facility] Comment on above: Performed By: #### L 500.4050, L501.5200, L100.0100 ####[facility] [address] [place], [address] Basophils/100 WBC (Bld) 1.0 % Normal 0-1 [facility] Comment on above: Performed By: #### L 500.4050, L501.5200, L100.0100 ####[facility] [address] [place], [address] Eosinophils/100 WBC (Bld) 8.2 % High 0-5 [facility] Comment on above: Performed By: #### L 500.4050, L501.5200, L100.0100 ####[facility] [address] [place], [address] Erythrocyte distribution width (RBC) [Ratio] 13.8 % Normal 11.6-14.6 [facility] Comment on above: Performed By: #### L 500.4050, L501.5200, L100.0100 ####[facility] [address] [place], [address] Hematocrit (Bld) [Volume fraction] 36.0 % Low 37-47 [facility] Comment on above: Performed By: #### L 500.4050, L501.5200, L100.0100 ####[facility] [address] [place], [address] Hemoglobin (Bld) [Mass/Vol] 11.9 g/dL Low 12.0-15.0 [facility] Comment on above: Performed By: #### L 500.4050, L501.5200, L100.0100 ####[facility] [address] [place], [address] IG% 0.400 Normal 0.0-0.9 [facility] Comment on above: Result Comment: IG% - Immature Granulocytes (promyelocytes, myelocytes and metamyelocytes) > 1% indicates that a LEFT SHIFT is Present. Performed By: #### L 500.4050, L501.5200, L100.0100 ####[facility] [address] [place], [address] Lymphocytes/100 WBC (Bld) 22.2 % Normal 19-41 [facility] Comment on above: Performed By: #### L 500.4050, L501.5200, L100.0100 ####[facility] [address] [place], [address] MCH (RBC) [Entitic mass] 30.1 pg Normal 27.0-32.0 [facility] Comment on above: Performed By: #### L 500.4050, L501.5200, L100.0100 ####[facility] [address] [place], [address] MCHC (RBC) [Mass/Vol] 33.1 g/dL Normal 32-36 [facility] Comment on above: Performed By: #### L 500.4050, L501.5200, L100.0100 ####[facility] [address] [place], [address] MCV (RBC) [Entitic vol] 91.1 fL Normal 81-99 [facility] Comment on above: Performed By: #### L 500.4050, L501.5200, L100.0100 ####[facility] [address] [place], [address] Monocytes/100 WBC (Bld) 7.1 % Normal 0-10 [facility] Comment on above: Performed By: #### L 500.4050, L501.5200, L100.0100 ####[facility] [address] [place], [address] Neutrophils/100 WBC (Bld) 61.1 % Normal 47-70 [facility] Comment on above: Performed By: #### L 500.4050, L501.5200, L100.0100 ####[facility] [address] [place], [address] Nucleated RBC (Bld) [#/Vol] 0 10*3/uL Normal 0-5 [facility] Comment on above: Performed By: #### L 500.4050, L501.5200, L100.0100 ####[facility] [address] [place], [address] Platelet mean volume (Bld) [Entitic vol] 11.7 fL Normal 6.2-12.0 [facility] Comment on above: Performed By: #### L 500.4050, L501.5200, L100.0100 ####[facility] [address] [place], [address] Platelets (Bld) [#/Vol] 211 10*3/uL Normal 150-450 [facility] Comment on above: Performed By: #### L 500.4050, L501.5200, L100.0100 ####[facility] [address] [place], [address] RBC (Bld) [#/Vol] 3.95 10*6/uL Low 4.2-5.4 [facility] Comment on above: Performed By: #### L 500.4050, L501.5200, L100.0100 ####[facility] [address] [place], [address] RDW SD 46.5 fl High 35.1-43.9 [facility] Comment on above: Performed By: #### L 500.4050, L501.5200, L100.0100 ####[facility] [address] [place], [address] WBC (Bld) [#/Vol] 7.1 10*3/uL Normal 4.4-11.0 [facility] Comment on above: Performed By: #### L 500.4050, L501.5200, L100.0100 ####[facility] [address] [place], [address] Comprehensive Metabolic Prof ilon 09-22-2024 Albumin [Mass/Vol] 4.1 g/dL Normal 3.4-4.8 [facility] Comment on above: Performed By: #### L 100.9950, L503.6550, L500.4050, L100.0100, L501.2300, L3100.2300, L501.5200, L503.6030 #### [facility] [address] [place], [address] Albumin/Globulin [Mass ratio] 1.5 {ratio} Normal 0.9-2.4 [facility] Comment on above: Performed By: #### L 100.9950, L503.6550, L500.4050, L100.0100, L501.2300, L3100.2300, L501.5200, L503.6030 #### [facility] [address] [place], [address] ALK PHOS 107 U/L High 35-104 [facility] Comment on above: Performed By: #### L 100.9950, L503.6550, L500.4050, L100.0100, L501.2300, L3100.2300, L501.5200, L503.6030 #### [facility] [address] [place], [address] ALT [Catalytic activity/Vol] 15 U/L Normal <=34 [facility] Comment on above: Performed By: #### L 100.9950, L503.6550, L500.4050, L100.0100, L501.2300, L3100.2300, L501.5200, L503.6030 #### [facility] [address] [place], [address] AST [Catalytic activity/Vol] 16 U/L Normal <=31 [facility] Comment on above: Performed By: #### L 100.9950, L503.6550, L500.4050, L100.0100, L501.2300, L3100.2300, L501.5200, L503.6030 #### [facility] [address] [place], [address] Bilirubin [Mass/Vol] 0.36 mg/dL Normal 0.00-1.30 [facility] Comment on above: Performed By: #### L 100.9950, L503.6550, L500.4050, L100.0100, L501.2300, L3100.2300, L501.5200, L503.6030 #### [facility] [address] [place], [address] BUN/CRE 21.9 RATIO High 10-20 [facility] Comment on above: Performed By: #### L 100.9950, L503.6550, L500.4050, L100.0100, L501.2300, L3100.2300, L501.5200, L503.6030 #### [facility] [address] [place], [address] Calcium [Mass/Vol] 9.4 mg/dL Normal 7.6-11.0 [facility] Comment on above: Performed By: #### L 100.9950, L503.6550, L500.4050, L100.0100, L501.2300, L3100.2300, L501.5200, L503.6030 #### [facility] [address] [place], [address] Chloride [Moles/Vol] 104 mmol/L Normal 98-108 [facility] Comment on above: Performed By: #### L 100.9950, L503.6550, L500.4050, L100.0100, L501.2300, L3100.2300, L501.5200, L503.6030 #### [facility] [address] [place], [address] CO2 [Moles/Vol] 24.4 mmol/L Normal 21.0-32.0 [facility] Comment on above: Performed By: #### L 100.9950, L503.6550, L500.4050, L100.0100, L501.2300, L3100.2300, L501.5200, L503.6030 #### [facility] [address] [place], [place], [id number] (073) Creatinine [Mass/Vol] 0.87 mg/dL Normal 0.70-1.20 [facility] Comment on above: Performed By: #### L 100.9950, L503.6550, L500.4050, L100.0100, L501.2300, L3100.2300, L501.5200, L503.6030 #### [facility] [address] [place], [place], [id number] ECRCL 76.02 ml/min Normal 50-250 [facility] Comment on above: Performed By: #### L 100.9950, L503.6550, L500.4050, L100.0100, L501.2300, L3100.2300, L501.5200, L503.6030 #### [facility] [address] [place], [place], [address] GAP 11 Normal 5-15 [facility] Comment on above: Performed By: #### L 100.9950, L503.6550, L500.4050, L100.0100, L501.2300, L3100.2300, L501.5200, L503.6030 #### [facility] [address] [place], [place], [phone] ([address]) GFR/1.73 sq M.predicted among non-blacks MDRD (S/P/Bld) [Vol rate/Area] 74 mL/min/{1.73_m2} Normal >60 [facility] Comment on above: Result Comment: mL/m in/1.73m2 CKD-EPI Creatinine Equation (2020) Performed By: #### L 100.9950, L503.6550, L500.4050, L100.0100, L501.2300, L3100.2300, L501.5200, L503.6030 #### [facility] [address] [place], [address] Globulin (S) [Mass/Vol] 2.7 g/dL Normal 2.2-4.2 [facility] Comment on above: Performed By: #### L 100.9950, L503.6550, L500.4050, L100.0100, L501.2300, L3100.2300, L501.5200, L503.6030 #### [facility] [address] [place], [address] Glucose [Mass/Vol] 135 mg/dL High 70-99 [facility] Comment on above: Performed By: #### L 100.9950, L503.6550, L500.4050, L100.0100, L501.2300, L3100.2300, L501.5200, L503.6030 #### [facility] [address] [place], [address] Potassium [Moles/Vol] 3.6 mmol/L Normal 3.3-5.1 [facility] Comment on above: Performed By: #### L 100.9950, L503.6550, L500.4050, L100.0100, L501.2300, L3100.2300, L501.5200, L503.6030 #### [facility] [address] [place], [address] Sodium [Moles/Vol] 139 mmol/L Normal 133-145 [facility] Comment on above: Performed By: #### L 100.9950, L503.6550, L500.4050, L100.0100, L501.2300, L3100.2300, L501.5200, L503.6030 #### [facility] [address] [place], [address] T PROT 6.8 g/dL Normal 5.9-8.4 [facility] Comment on above: Performed By: #### L 100.9950, L503.6550, L500.4050, L100.0100, L501.2300, L3100.2300, L501.5200, L503.6030 #### [facility] [address] [place], [address] Urea nitrogen [Mass/Vol] 19 mg/dL Normal 4-19 [facility] Comment on above: Performed By: #### L 100.9950, L503.6550, L500.4050, L100.0100, L501.2300, L3100.2300, L501.5200, L503.6030 #### [facility] [address] [place], [address] Magnesiumon 09-22-2024 Magnesium [Mass/Vol] 2.1 mg/dL Normal 1.5-2.2 [facility] Comment on above: Performed By: #### L 100.9950, L503.6550, L500.4050, L100.0100, L501.2300, L3100.2300, L501.5200, L503.6030 #### [facility] [address] [facility] [place], [place], [address] Oncology Visit Reporton 09-09 Oncology Visit Report [facility] [address] [facility] [place] [address] OFFICE VISIT Date of Service: 09/22/24917 MR#: [id number] Acct: [id number] Name: TRUDY CALLE Rep #: [id number] : 1960 From: Antoni Leach MD Age/Sex: 63/F Location: [facility] Status: Signed HPI Subjective Date of Service [...] Strictly speaking TNM staging, such as the [place] Joint Committee on Cancer (AJCC) 8th edition, [...] Apparent thickening (more content not included)... Normal [facility] Serum or plasma carcinoembry onic antigen measurement (mass/volume)Ordered By: Antoni Leach on 09-22-2024 Carcinoembryonic Ag [Mass/Vol] 3.8 ng/mL 0.0-4.7 [facility] Comment on above: Nonsmokers <3.9 Smok ers <5.6[facility] Electrochemiluminescence Immunoassay(ECLIA)Values obtained with different assay methods or kitscannot be used interchangeably. Results cannot beinterpreted as absolute evidence of the presence orabsence of malignant disease.Performed at: [facility], [place] [id number] Director: Osei Busch PhD, Phone: [phone] CXR for Line Placementon CXR for Line Placement [facility] [address] [place] [address] CXR for Line Placement MR#: [id number] Acct: [id number] Name: TRUDY CALLE Rep #: [id number] : 1960 F 63 From: Siddhartha Taveras MD PCP: Dr. Antoni Slaughter MD [place] [facility] [place]: CXR for Line Placement Date of Exam: 09/17/24 Exam# [id number] Ordering Dr: Humberto Leigh EXAM: AP UPRIGHT [...] Port-A-Cath. No active cardiopulmonary disease. Reading Location: [place] [address] CC: Dr. Humberto Leigh MD; Dr. Antoni Slaughter MD Cone Picker: Signed Normal [facility] Discharge Instructionon Discharge Instruction [facility] Medical Records Department [address] [place] [address] Instructions for Home/Discharge Instructions 09/17/24 0938 MR#: [id number] Acct: [id number] Name: TRUDY CALLE Rep #: [id number] : 1960 63 From: Humberto Leigh MD PCP: Dr. Antoni Slaughter MD Status:[place] [facility] [place]charge Instructions Procedure Port-A-Cath Diet Discharge Diet: [...] With: Humberto Leigh MD When: as needed [phone] Test Results: Test results from this visit will be discussed in further detail at your follow-up appointment, if applicable. Discharge Plan Admission Attending Provider: Humberto Leigh Primary Care Provider: Antoni Slaughter Instructions Print Language: Vincentian Discharge Orders/Prescriptions Prescriptions: No Action losartan 100 [...] MD CC: Dr. Antoni Slaughter MD Signed [facility] MR/POSTOP.ANEon 09-17-2024 MR/POSTOP.[facility] Medical Records Department [address] [place] [address] Anesthesia Postop Eval I 09/17/24 0943 MR#: [id number] Acct: [id number] Name: TRUDY CALLE Rep #: [id number] : 1960 63 From: Tristin Phipps CRNA PCP: Dr. Antoni Slaughter MD Status:REG SD Y Race: C Location: [place] [address] Anesthesia: Postop Eval I Current Vital Signs [...] completed: Yes 09/17/24943 Date Tristin Phipps CRNA [facility] Signature: Date CC: Signed [facility] MR/ALCRAOEU6ih 09-17-2024 MR/POSTOPAN2 [facility] Medical Records Department [address] [place] [address] Anesthesia Postop Eval II 09/17/24 1106 MR#: [id number] Acct: [id number] Name: TRUDY CALLE Rep #: [id number] : 1960 63 From: Nancy Neely PCP: Dr. Antoni Slaughter MD Status:[place] [facility] [place] Race: C [place] [facility] [place] Anesthesia Postop Eval I Sum Postop Eval Completion status Anesthesia document: Postop Eval 1 completed: Yes Anesthesia Postop Eval I Summary Anesthesia Postop Eval I Summary: Anesthesia Postop Eval I: Assessment Summary Airway patent Yes 09/17/24 09:44 METAL FINISHER.PKEL Spontaneous unlabored Yes 09/17/24 09:44 METAL FINISHER.PKEL respirations Mental status Awake,Calm 09/17/24 09:44 METAL FINISHER.PKEL nausea No 09/17/24 09:44 METAL FINISHER.PKEL Vomiting No 09/17/24 09:44 METAL FINISHER.PKEL Anesthesia Postop Eval I: Fluid Summary Crystalloid volume administer 400 09/17/24 09:44 METAL FINISHER.PKEL (ml) Colloids volume administered ( ml) Blood Product volume administered (ml) Total IV fluid infused 400 09/17/24 09:44 METAL FINISHER.PKEL Anesthesia Postop Eval I: Summary Notes Anesthesia Complication No 09/17/24 09:44 METAL FINISHER.PKEL Anesthesia Complication Comment: Post-operative progress note Anesthesia: Postop Eval II Evaluation Mental status: Awake Pain Level: 1 nausea: No Vomiting: No 09/17/24 1106 Date Nancy Goodwin Signature: Date CC: Signed Normal [facility] Operative Reporton Operative Report [facility] Medical Records Department [address] [place] [address] Operative Report 09/17/24936 MR#: [id number] Acct: [id number] Name: TRUDY CALLE Rep #: [id number] : 1960 63 From: Humberto Leigh MD PCP: Dr. Antoni Slaughter MD [place] [facility] [place] Location: [place] [address] Operative Report (Standard) Operative Information Date of Procedure: 09/17/24 Pre-Operative Diagnosis: Need for vascular access for chemotherapy Post-Operative Diagnosis: Same Surgery/Procedure Performed: Ultrasound and fluoroscopy guided right chest port placement utilizing right IJ optoelectronics engineer: No Type of Anesthesia: Local MAC RN [...] apply: Implanted device Implanted device details: 8 [employer]riot PowerPort Estimated Blood Loss: 5 Specimen collected: [...] x-ray will be obtained. Surgical Findings: 8 [employer]riot PowerPort Complications Complications: No Admit VTE Documentation VTE Mechan Device Prophylaxis: SCD's 09/17/24 0938 Cosigner Signature (if applicable): CC: Dr. Humberto Leigh MD; Dr. Antoni Slaguhter MD Signed [facility] 09-12-[address] 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] Prescriptions as of 09/12/2024 - levothyroxine 150 [...] by LUIS F HURTADO on 09/12/24 Normal [facility] Oncology Visit Reporton 04-0 Oncology Visit Report [facility] [address] [place] [address] OFFICE VISIT Date of Service: 09/09/24 1456 MR#: [id number] Acct: [id number] Name: TRUDY CALLE Rep #: [id number] : 1960 From: Ceci Hebert NP JUNIOR ELECTRICAL ENGINEER -C Age/Sex: 63/F Location: [facility] Status: Signed HPI Subjective Date of Service [...] Strictly speaking TNM staging, such as the [place] Joint Committee on Cancer (AJCC) 8th edition, [...] Apparent thicke (more content not included)... Normal [facility] Surgery Visit Reporton 09-08 Surgery Visit Report [facility] [address] [place] [address]. [address] [place] [address] OFFICE VISIT Date of Service: 09/08/24 MR#: [id number] Acct: [id number] Name: TRUDY CALLE Rep #: [id number] : 1960 Provider: Dr. Humberto munoz MD Age/Sex: 63/F Location: [facility] Status: Signed with Addenda ADDENDUM by Desi [...] Reasons: PORT PLACEMENT Chief Complaint: port placement Category Director Required: No Is patient in pain?: No [...] black,tarry s (more content not included)... Normal [facility] Carcinoembryonic Antigenon 0 09-06-2024 CEA 5.6 ng/mL High 0.0-4.7 [facility] Comment on above: Result Comment: Nons mokers <3.9 Smokers <5.6 [facility] Electrochemiluminescence Immunoassay (ECLIA) Values obtained with different assay methods or kits cannot be used interchangeably. Results cannot be interpreted as absolute evidence of the presence or absence of malignant disease. Performed at: [facility] [id number] Screener And Blender: Osei Busch PhD, Phone: [phone] Performed By: #### L 100.9950, L503.6550, L500.4050, L100.0100, L501.2300, L3100.2300, L501.5200, L503.6030 ####[facility] [address] [place], [place], [address] Absolute neutrophil countOrd ered By: Antoni Leach on 09-04-2024 Neutrophils (Bld) [#/Vol] 4.8 10*3/uL 2.0-7.7 [facility] Anion gap in Serum or Plasma Ordered By: Antoni Leach on 09-04-2024 Anion gap [Moles/Vol] 15 mmol/L 5-15 [facility] Automated blood erythrocyte countOrdered By: Antoni Leach on 09-04-2024 RBC (Bld) [#/Vol] 3.84 10*6/uL Low 4.2-5.4 [facility] Comment on above: Performed By: #### L 100.9950, L503.6550, L500.4050, L100.0100, L501.2300, L3100.2300, L501.5200, L503.6030 #### [facility] [address] [place], [address] Automated blood hematocrit ( percentage)Ordered By: Antoni Leach on 09-04-2024 Hematocrit (Bld) [Volume fraction] 35.2 % Low 37-47 [facility] Comment on above: Performed By: #### L 100.9950, L503.6550, L500.4050, L100.0100, L501.2300, L3100.2300, L501.5200, L503.6030 #### [facility] [address] [place], [address] Automated lymphocyte count a s percentage of total leukocytesOrdered By: Antoni Leach on 09-04-2024 Lymphocytes/100 WBC (Bld) 24.1 % Normal 19-41 [facility] Comment on above: Performed By: #### L 100.9950, L503.6550, L500.4050, L100.0100, L501.2300, L3100.2300, L501.5200, L503.6030 #### [facility] [address] [place], [address] BUN/creatinine ratioOrdered By: Antoni Leach on 09-04-2024 Urea nitrogen/Creatinine [Mass ratio] 22.1 mg/mg High 10-20 [facility] Basophil percentageOrdered B y: Antoni Leach on 09-04-2024 Basophils/100 WBC (Bld) 0.8 % Normal 0-1 [facility] Comment on above: Performed By: #### L 100.9950, L503.6550, L500.4050, L100.0100, L501.2300, L3100.2300, L501.5200, L503.6030 #### [facility] [address] [place], [address] Bilirubin, totalOrdered By: Antoni Leach on 09-04-2024 Bilirubin [Mass/Vol] 0.40 mg/dL 0.00-1.30 [facility] CBC W/Diff, Automatedon - Absolute Lymph 1.85 X10 3/uL Normal 0.83-4.51 [facility] Comment on above: Performed By: #### L 100.9950, L503.6550, L500.4050, L100.0100, L501.2300, L3100.2300, L501.5200, L503.6030 #### [facility] [address] [place], [address] Absolute Neut 4.8 X10 3/uL Normal 2.0-7.7 [facility] Comment on above: Performed By: #### L 100.9950, L503.6550, L500.4050, L100.0100, L501.2300, L3100.2300, L501.5200, L503.6030 #### [facility] [address] [place], [address] IG% 0.300 Normal 0.0-0.9 [facility] Comment on above: Result Comment: IG% - Immature Granulocytes (promyelocytes, myelocytes and metamyelocytes) > 1% indicates that a LEFT SHIFT is Present. Performed By: #### L 100.9950, L503.6550, L500.4050, L100.0100, L501.2300, L3100.2300, L501.5200, L503.6030 #### [facility] [address] [place], [address] Nucleated RBC (Bld) [#/Vol] 0 10*3/uL Normal 0-5 [facility] Comment on above: Performed By: #### L 100.9950, L503.6550, L500.4050, L100.0100, L501.2300, L3100.2300, L501.5200, L503.6030 #### [facility] [address] [place], [place], [id number] RDW SD 46.5 fl High 35.1-43.9 [facility] Comment on above: Performed By: #### L 100.9950, L503.6550, L500.4050, L100.0100, L501.2300, L3100.2300, L501.5200, L503.6030 #### [facility] [address] [place], [address] Calculated total iron bindin g capacityOrdered By: Antoni Leach on 09-04-2024 Total Iron Binding Capacity 249 ug/dL Low 250-450 [facility] Carbon dioxide, total [Moles /volume] in Central venous bloodOrdered By: Antoni Leach on 09-04-2024 CO2 [Moles/Vol] 20.2 mmol/L Low 21.0-32.0 [facility] Chloride assayOrdered By: Lisa Leach on 09-04-2024 Chloride [Moles/Vol] 104 mmol/L 98-108 [facility] Comprehensive Metabolic Prof ilon 09-04-2024 Albumin [Mass/Vol] 3.9 g/dL Normal 3.4-4.8 [facility] Comment on above: Performed By: #### L 100.9950, L503.6550, L500.4050, L100.0100, L501.2300, L3100.2300, L501.5200, L503.6030 #### [facility] [address] [place], [place], [address] Albumin/Globulin [Mass ratio] 1.4 {ratio} Normal 0.9-2.4 [facility] Comment on above: Performed By: #### L 100.9950, L503.6550, L500.4050, L100.0100, L501.2300, L3100.2300, L501.5200, L503.6030 #### [facility] [address] [place], [address] ALK PHOS 111 U/L High 35-104 [facility] Comment on above: Performed By: #### L 100.9950, L503.6550, L500.4050, L100.0100, L501.2300, L3100.2300, L501.5200, L503.6030 #### [facility] [address] [place], [address] ALT [Catalytic activity/Vol] 26 U/L Normal <=34 [facility] Comment on above: Performed By: #### L 100.9950, L503.6550, L500.4050, L100.0100, L501.2300, L3100.2300, L501.5200, L503.6030 #### [facility] [address] [place], [address] AST [Catalytic activity/Vol] 17 U/L Normal <=31 [facility] Comment on above: Performed By: #### L 100.9950, L503.6550, L500.4050, L100.0100, L501.2300, L3100.2300, L501.5200, L503.6030 #### [facility] [address] [place], [address] Bilirubin [Mass/Vol] 0.40 mg/dL Normal 0.00-1.30 [facility] Comment on above: Performed By: #### L 100.9950, L503.6550, L500.4050, L100.0100, L501.2300, L3100.2300, L501.5200, L503.6030 #### [facility] [address] [place], [place], [id number] (246) BUN/CRE 22.1 RATIO High 10-20 [facility] Comment on above: Performed By: #### L 100.9950, L503.6550, L500.4050, L100.0100, L501.2300, L3100.2300, L501.5200, L503.6030 #### [facility] [address] [place], [address] Calcium [Mass/Vol] 9.0 mg/dL Normal 7.6-11.0 [facility] Comment on above: Performed By: #### L 100.9950, L503.6550, L500.4050, L100.0100, L501.2300, L3100.2300, L501.5200, L503.6030 #### [facility] [address] [place], [address] Chloride [Moles/Vol] 104 mmol/L Normal 98-108 [facility] Comment on above: Performed By: #### L 100.9950, L503.6550, L500.4050, L100.0100, L501.2300, L3100.2300, L501.5200, L503.6030 #### [facility] [address] [place], [address] CO2 [Moles/Vol] 20.2 mmol/L Low 21.0-32.0 [facility] Comment on above: Performed By: #### L 100.9950, L503.6550, L500.4050, L100.0100, L501.2300, L3100.2300, L501.5200, L503.6030 #### [facility] [address] [place], [address] Creatinine [Mass/Vol] 0.83 mg/dL Normal 0.70-1.20 [facility] Comment on above: Performed By: #### L 100.9950, L503.6550, L500.4050, L100.0100, L501.2300, L3100.2300, L501.5200, L503.6030 #### [facility] [address] [place], [address] ECRCL 79.88 ml/min Normal 50-250 [facility] Comment on above: Performed By: #### L 100.9950, L503.6550, L500.4050, L100.0100, L501.2300, L3100.2300, L501.5200, L503.6030 #### [facility] [address] [place], [address] GAP 15 Normal 5-15 [facility] Comment on above: Performed By: #### L 100.9950, L503.6550, L500.4050, L100.0100, L501.2300, L3100.2300, L501.5200, L503.6030 #### [facility] [address] [place], [address] GFR/1.73 sq M.predicted among non-blacks MDRD (S/P/Bld) [Vol rate/Area] 79 mL/min/{1.73_m2} Normal >60 [facility] Comment on above: Result Comment: mL/m in/1.73m2 CKD-EPI Creatinine Equation (2020) Performed By: #### L 100.9950, L503.6550, L500.4050, L100.0100, L501.2300, L3100.2300, L501.5200, L503.6030 #### [facility] [address] [place], [address] Globulin (S) [Mass/Vol] 2.8 g/dL Normal 2.2-4.2 [facility] Comment on above: Performed By: #### L 100.9950, L503.6550, L500.4050, L100.0100, L501.2300, L3100.2300, L501.5200, L503.6030 #### [facility] [address] [place], [address] Glucose [Mass/Vol] 87 mg/dL Normal 70-99 [facility] Comment on above: Performed By: #### L 100.9950, L503.6550, L500.4050, L100.0100, L501.2300, L3100.2300, L501.5200, L503.6030 #### [facility] [address] [place], [address] Potassium [Moles/Vol] 3.8 mmol/L Normal 3.3-5.1 [facility] Comment on above: Performed By: #### L 100.9950, L503.6550, L500.4050, L100.0100, L501.2300, L3100.2300, L501.5200, L503.6030 #### [facility] [address] [place], [address] Sodium [Moles/Vol] 139 mmol/L Normal 133-145 [facility] Comment on above: Performed By: #### L 100.9950, L503.6550, L500.4050, L100.0100, L501.2300, L3100.2300, L501.5200, L503.6030 #### [facility] [address] [place], [address] T PROT 6.7 g/dL Normal 5.9-8.4 [facility] Comment on above: Performed By: #### L 100.9950, L503.6550, L500.4050, L100.0100, L501.2300, L3100.2300, L501.5200, L503.6030 #### [facility] [address] [place], [address] Urea nitrogen [Mass/Vol] 18 mg/dL Normal 4-19 [facility] Comment on above: Performed By: #### L 100.9950, L503.6550, L500.4050, L100.0100, L501.2300, L3100.2300, L501.5200, L503.6030 #### [facility] [address] [place], [address] Eosinophil percentageOrdered By: Antoni Leach on 09-04-2024 Eosinophils/100 WBC (Bld) 5.7 % High 0-5 [facility] Comment on above: Performed By: #### L 100.9950, L503.6550, L500.4050, L100.0100, L501.2300, L3100.2300, L501.5200, L503.6030 #### [facility] [address] [place], [address] Erythrocyte distribution wid th (RBC) [Ratio][facility]: [facility] 09-[facility] Erythrocyte distribution width (RBC) [Entitic vol] 46.5 fL High 35.1-43.9 [facility] Erythrocyte distribution wid th ratioOrdered By: [facility] on 09-04-2024 Erythrocyte distribution width (RBC) [Ratio] 13.8 % Normal 11.6-14.6 [facility] Comment on above: Performed By: #### L 100.9950, L503.6550, L500.4050, L100.0100, L501.2300, L3100.2300, L501.5200, L503.6030 #### [facility] [address] [place], [address] Estimation of creatinine kathy aranceOrdered By: Antoni Leach on 09-04-2024 Estimated Creatinine Clearance Calc 79.88 ml/min 50-250 [facility] Ferritinon 09-04-2024 Ferritin [Mass/Vol] 319 ng/mL Normal 22-378 [facility] Comment on above: Performed By: #### L 100.9950, L503.6550, L500.4050, L100.0100, L501.2300, L3100.2300, L501.5200, L503.6030 #### [facility] [address] [place], [address] GFR/1.73 sq M.predicted jody g non-blacks MDRD (S/P/Bld) [Vol rate/Area]Ordered By: Antoni Leach on 09-04-2024 Estimated GFR (MDRD) Non-Af Amer 79 >60 [facility] Comment on above: mL/min/1.73m2 CKD-EP I Creatinine Equation (2020) Hemoglobin (Reticulocytes) [ Entitic mass]Ordered By: Antoni Leach on 09-04-2024 Reticulocyte Hemoglobin Equivalent 33.0 pg 30-35 [facility] Hemoglobin measurementOrdere d By: Antoni Leach on 09-04-2024 Hemoglobin (Bld) [Mass/Vol] 11.9 g/dL Low 12.0-15.0 [facility] Comment on above: Performed By: #### L 100.9950, L503.6550, L500.4050, L100.0100, L501.2300, L3100.2300, L501.5200, L503.6030 #### [facility] [place], [address] Immature granulocytes/100 WB C Auto (Bld)Ordered By: Antoni Leach on 09-04-2024 Immature granulocytes/100 WBC (Bld) 0.300 % 0.0-0.9 [facility] Comment on above: IG% - Immature Granu locytes (promyelocytes, myelocytes and metamyelocytes) > 1% indicates that a LEFT SHIFT is Present. Immature reticulocyte fracti onOrdered By: Antoni Leach on 09-04-2024 Immature Reticulocyte Fraction 15.80 % 3.00-15.90 [facility] Iron (Unsp spec) [Mass/Mass] Ordered By: Antoni Leach on 09-04-2024 Iron [Mass/Vol] 54 ug/dL 50-170 [facility] Iron measurement (mass/mass) Ordered By: Antoni Leach on 09-04-2024 Iron (Unsp spec) [Mass/Mass] 54 ug/dL 50-170 [facility] Iron saturation [Mass fracti on]Ordered By: Antoni Leach on 09-04-2024 Iron Saturation 22.0 % 13-59 [facility] Iron+Iron Binding Capacityon 09-04-2024 Iron [Mass/Vol] 54 ug/dL Normal 50-170 [facility] Comment on above: Performed By: #### L 100.9950, L503.6550, L500.4050, L100.0100, L501.2300, L3100.2300, L501.5200, L503.6030 #### [facility] [address] [place], [place], [phone] (439) IRON SATURATION 22.0 Normal 13-59 [facility] Comment on above: Performed By: #### L 100.9950, L503.6550, L500.4050, L100.0100, L501.2300, L3100.2300, L501.5200, L503.6030 #### [facility] [address] [place], [place], [phone] ([address] TIBC 249 ug/dL Low 250-450 [facility] Comment on above: Performed By: #### L 100.9950, L503.6550, L500.4050, L100.0100, L501.2300, L3100.2300, L501.5200, L503.6030 #### [facility] [address] [place], [address] UIBC 195 ug/dL Low 228-428 [facility] Comment on above: Performed By: #### L 100.9950, L503.6550, L500.4050, L100.0100, L501.2300, L3100.2300, L501.5200, L503.6030 #### [facility] [address] [place], [place], [phone] Laboratory - Chemistry and C hemistry - challengeOrdered By: Antoni Leach on 09-04-2024 AST [Catalytic activity/Vol] 17 U/L <32 [facility] Lymphocytes Auto (Unsp spec) [#/Vol]Ordered By: Antoni Leach on 09-04-2024 Lymphocytes (Bld) [#/Vol] 1.85 10*3/uL 0.83-4.51 [facility] MCV (mean corpuscular volume ) determinationOrdered By: Antoni Leach on 09-04-2024 MCV (RBC) [Entitic vol] 91.7 fL Normal 81-99 [facility] Comment on above: Performed By: #### L 100.9950, L503.6550, L500.4050, L100.0100, L501.2300, L3100.2300, L501.5200, L503.6030 #### [facility] [address] [place], [address] Magnesiumon 09-04-2024 Magnesium [Mass/Vol] 2.1 mg/dL Normal 1.5-2.2 [facility] Comment on above: Performed By: #### L 100.9950, L503.6550, L500.4050, L100.0100, L501.2300, L3100.2300, L501.5200, L503.6030 #### [facility] [address] [place], [place], [phone] (052) Magnesium (Unsp spec) [Mass/ Vol]Ordered By: Antoni Leach on 09-04-2024 Magnesium [Mass/Vol] 2.1 mg/dL 1.5-2.2 [facility] Mean corpuscular hemoglobin (MCH) determinationOrdered By: Antoni Leach on 09-04-2024 MCH (RBC) [Entitic mass] 31.0 pg Normal 27.0-32.0 [facility] Comment on above: Performed By: #### L 100.9950, L503.6550, L500.4050, L100.0100, L501.2300, L3100.2300, L501.5200, L503.6030 #### [facility] [address] [place], [place], [phone] (126) Mean corpuscular hemoglobin concentration (MCHC) determinationOrdered By: Antoni Leach on 09-04-2024 MCHC (RBC) [Mass/Vol] 33.8 g/dL Normal 32-36 [facility] Comment on above: Performed By: #### L 100.9950, L503.6550, L500.4050, L100.0100, L501.2300, L3100.2300, L501.5200, L503.6030 #### [facility] [address] [place], [address] Mean platelet volume determi nationOrdered By: Antoni Leach on 09-04-2024 Platelet mean volume (Bld) [Entitic vol] 10.9 fL Normal 6.2-12.0 [facility] Comment on above: Performed By: #### L 100.9950, L503.6550, L500.4050, L100.0100, L501.2300, L3100.2300, L501.5200, L503.6030 #### [facility] [address] [place], [address] Monocyte percentageOrdered B y: Antoni Leach on 09-04-2024 Monocytes/100 WBC (Bld) 7.2 % Normal 0-10 [facility] Comment on above: Performed By: #### L 100.9950, L503.6550, L500.4050, L100.0100, L501.2300, L3100.2300, L501.5200, L503.6030 #### [facility] [address] [place], [address] Neutrophil percentageOrdered By: Antoni Leach on 09-04-2024 Neutrophils/100 WBC (Bld) 61.9 % Normal 47-70 [facility] Comment on above: Performed By: #### L 100.9950, L503.6550, L500.4050, L100.0100, L501.2300, L3100.2300, L501.5200, L503.6030 #### [facility] [address] [place], [address] No Panel InformationOrdered By: Antoni Leach on 09-04-2024 Unsaturated Iron Binding Capacity 195 ug/dL Low 228-428 [facility] Nucleated red blood cell per centageOrdered By: Antoni Leach on 09-04-2024 Nucleated RBC/100 WBC (Bld) [Ratio] 0 % 0-5 [facility] Oncology Visit Reporton 08-10 Oncology Visit Report [facility] [address] [place] [address] OFFICE VISIT Date of Service: 09/04/24 1335 MR#: [id number] Acct: [id number] Name: TRUDY CALLE Rep #: [id number] : 1960 From: Antoni Leach MD Age/Sex: 63/F Location: [facility] Status: Signed HPI Subjective Date of Service [...] Strictly speaking TNM staging, such as the [place] [employer] Committee on Cancer (AJCC) 8th edition, [...] Apparent thickening (more content not included)... Normal [facility] Phosphoruson 09-04-2024 Phosphate [Mass/Vol] 3.0 mg/dL Normal 2.7-4.5 [facility] Comment on above: Performed By: #### L 100.9950, L503.6550, L500.4050, L100.0100, L501.2300, L3100.2300, L501.5200, L503.6030 #### [facility] [address] [place], [place], [address] Platelet countOrdered By: Lisa Leach on 09-04-2024 Platelets (Bld) [#/Vol] 323 10*3/uL Normal 150-450 [facility] Comment on above: Performed By: #### L 100.9950, L503.6550, L500.4050, L100.0100, L501.2300, L3100.2300, L501.5200, L503.6030 #### [facility] [address] [place], [place], [phone] Potassium (Unsp spec) [Mass/ Vol]Ordered By: Antoni Leach on 09-04-2024 Potassium [Moles/Vol] 3.8 mmol/L 3.3-5.1 [facility] Retic Panelon 09-04-2024 IM RET FRACTION 15.80 Normal 3.00-15.90 [facility] Comment on above: Performed By: #### L 100.9950, L503.6550, L500.4050, L100.0100, L501.2300, L3100.2300, L501.5200, L503.6030 #### [facility] [address] [place], [place], [id number] RET-HE 33.0 pg Normal 30-35 [facility] Comment on above: Performed By: #### L 100.9950, L503.6550, L500.4050, L100.0100, L501.2300, L3100.2300, L501.5200, L503.6030 #### [facility] [address] [place], [address] Retic Count 2.07 High 0.5-1.5 [facility] Comment on above: Performed By: #### L 100.9950, L503.6550, L500.4050, L100.0100, L501.2300, L3100.2300, L501.5200, L503.6030 #### [facility] [address] [place], [place], [phone] Reticulocyte hemoglobin equi valent (RET-He) measurementOrdered By: Antoni Leach on 09-04-2024 Hemoglobin (Reticulocytes) [Entitic mass] 33.0 pg 30-35 [facility] Reticulocytes Auto (Bld) [#/ Vol]Ordered By: Antoni Leach on 09-04-2024 Reticulocyte Count 2.07 % High 0.5-1.5 [facility] Reticulocytes/100 RBC (Bld) 2.07 % High 0.5-1.5 [facility] Serum creatinine measurement (mass/volume)Ordered By: Antoni Leach on 09-04-2024 Creatinine [Mass/Vol] 0.83 mg/dL 0.70-1.20 [facility] Serum globulin measurementOr dered By: Antoni Leach on 09-04-2024 Globulin (S) [Mass/Vol] 2.8 g/dL 2.2-4.2 [facility] Serum glucose measurement (m ass/volume)Ordered By: Antnoi Leach on 09-04-2024 Glucose [Mass/Vol] 87 mg/dL 70-99 [facility] Serum or plasma alanine zhu otransferase (ALT) measurementOrdered By: Antoni Leach on 09-04-2024 ALT [Catalytic activity/Vol] 26 U/L <35 [facility] Serum or plasma albumin sourav urement (mass/volume)Ordered By: Antoni Leach on 09-04-2024 Albumin [Mass/Vol] 3.9 g/dL 3.4-4.8 [facility] Serum or plasma albumin/glob ulin mass ratioOrdered By: Antoni Leach on 09-04-2024 Albumin/Globulin [Mass ratio] 1.4 {ratio} 0.9-2.4 [facility] Serum or plasma alkaline omid sphatase measurementOrdered By: Antoni Leach on 09-04-2024 ALP [Catalytic activity/Vol] 111 U/L High 35-104 [facility] Serum or plasma calcium sourav urement (mass/volume)Ordered By: Antoni Leach on 09-04-2024 Calcium [Mass/Vol] 9.0 mg/dL 7.6-11.0 [facility] Serum or plasma ferritin darin surement (mass/volume)Ordered By: Antoni Leach on 09-04-2024 Ferritin [Mass/Vol] 319 ng/mL 22-378 [facility] Serum or plasma iron saturat ion measurement (mass fraction)Ordered By: Antoni Leach on 09-04-2024 Iron saturation [Mass fraction] 22.0 % 13-59 [facility] Serum or plasma urea nitroge n measurement (mass/volume)Ordered By: Antoni Leach on 09-04-2024 Urea nitrogen [Mass/Vol] 18 mg/dL 4-19 [facility] Serum phosphorus measurement Ordered By: Antoni Leach on 09-04-2024 Phosphorus Level 3.0 mg/dL 2.7-4.5 [facility] Sodium levelOrdered By: Sarah Leach on 09-04-2024 Sodium [Moles/Vol] 139 mmol/L 133-145 [facility] Total proteinOrdered By: Colby Leach on 09-04-2024 Protein [Mass/Vol] 6.7 g/dL 5.9-8.4 [facility] White blood cell (WBC) count Ordered By: Antoni Leach on 09-04-2024 WBC (Bld) [#/Vol] 7.7 10*3/uL Normal 4.4-11.0 [facility] Comment on above: Performed By: #### L 100.9950, L503.6550, L500.4050, L100.0100, L501.2300, L3100.2300, L501.5200, L503.6030 #### [facility] [address] [place], [address] CNOVon 08-29-2024 CNOV Office Visit (AGG[facility] 3) -- TRUDY CALLE ([id number]) 1960 F Date Time Provider Department 08/29/24 11:00 AM VIBHA FLORES3 During your visit today, we recorded the following information about you: Pulse Blood pressure Weight 90/minute 138/84 93 kg Vibha Flores MD 08/29/2024 1:02 PM Signed Vibha Flores M.D. Colon AND Rectal Surgery [address] [facility], [address] [place] [phone] CC: rectosigmoid cancer HPI: Trudylit Calle is [...] RECTUM: RESECTIO (more content not included)... Normal [facility] Pam 08-19-[address] [facility] Telephone ([facility]) -- TRUDY CALLE ([id number]) 1960 F Date Time Provider Department 08/19/24 LUIS F HURTADO [facility] During your visit today, we recorded the following information about you: Allergies As of Date: 08/19/2024 (No Known Allergies) Date Reviewed: 08/14/2024 Reviewed by: Heidi Villanueva RN - Fully Assessed Reason for Visit: [employer] - Hospital Follow Up [3601] Prescriptions as [...] by LUIS F HURTADO on 08/19/24 Normal [facility] Basic metabolic 2000 panelon 08-15-2024 Anion gap [Moles/Vol] 10 mmol/L Normal 8-15 [facility] Comment on above: Order Comment: Speci men Type: BLOOD SPECIMEN Ordering Facility: [facility] Address: [address] [place] [address] Performed By: #### 2 4321-2 #### [facility] CLIA [id number] [address] [place] [address] [place] Calcium [Mass/Vol] 8.6 mg/dL Normal 8.5-10.2 [facility] Comment on above: Order Comment: Speci men Type: BLOOD SPECIMEN Ordering Facility: [facility] Address: [address] [place] [address] Performed By: #### 2 4321-2 #### [facility] CLIA [id number] [address] [place] Chloride [Moles/Vol] 104 mmol/L Normal 98-107 [facility] Comment on above: Order Comment: Speci men Type: BLOOD SPECIMEN Ordering Facility: [facility] Address: [address] [place] [address] Performed By: #### 2 4321-2 #### [facility] CLIA [id number] [address] [place] CO2 [Moles/Vol] 24 mmol/L Normal 22-30 [facility] Comment on above: Order Comment: Speci men Type: BLOOD SPECIMEN Ordering Facility: [facility] Address: [address] [place] [address] Performed By: #### 2 4321-2 #### [facility] CLIA [id number] [address] [place] Creatinine [Mass/Vol] 1.12 mg/dL High 0.58-0.96 [facility] Comment on above: Order Comment: Speci men Type: BLOOD SPECIMEN Ordering Facility: [facility] Address: [address] [place] [address] Performed By: #### 2 4321-2 #### [facility] CLIA [id number] [address] [place] Creatinine and Glomerular filtration rate.predicted panel (S/P/Bld) 55 mL/min/1.73m??? Low >=60 [facility] Comment on above: Order Comment: Speci men Type: BLOOD SPECIMEN Ordering Facility: [facility] Address: [address] [place] [address] Result Comment: Devika mated Glomerular Filtration Rate [...] GFR. Performed By: #### 2 4321-2 #### [facility] CLIA [id number] [address] [place] [address] [place] Glucose [Mass/Vol] 93 mg/dL Normal 74-99 [facility] Comment on above: Order Comment: Speci men Type: BLOOD SPECIMEN Ordering Facility: [facility] Address: [address] [place] [address] Result Comment: The [place] Diabetes Association (ADA) provides guidance for cutoff [...] Standards of Medical Care in Diabetes 2016, [place] [employer] Association. Diabetes Care. 2016.39(Suppl 1). Performed By: #### 2 4321-2 #### [facility] CLIA [id number] [address] [place] Potassium [Moles/Vol] 3.8 mmol/L Normal 3.7-5.1 [facility] Comment on above: Order Comment: Speci men Type: BLOOD SPECIMEN Ordering Facility: [facility] Address: [address] [place] [place] [id number] Performed By: #### 2 4321-2 #### [facility] CLIA [id number] [address] [place] [address] [place] Sodium [Moles/Vol] 138 mmol/L Normal 136-144 [facility] Comment on above: Order Comment: Speci men Type: BLOOD SPECIMEN Ordering Facility: [facility] Address: [address] [place] [address] Performed By: #### 2 4321-2 #### [facility] CLIA [id number] [address] Urea nitrogen [Mass/Vol] 25 mg/dL High 7-21 [facility] Comment on above: Order Comment: Speci men Type: BLOOD SPECIMEN Ordering Facility: [facility] Address: [address] [place] [address] Performed By: #### 2 4321-2 #### [facility] CLIA [id number] [address] CBC panel Auto (Bld)on 08-15 Erythrocyte distribution width (RBC) [Ratio] 13.9 % Normal 11.5-15.0 [facility] Comment on above: Order Comment: Speci men Type: BLOOD SPECIMEN Ordering Facility: [facility] Address: [address] [place] [address] Performed By: #### 5 8410-2 #### [facility] CLIA [id number] [address] Hematocrit (Bld) [Volume fraction] 31.5 % Low 36.0-46.0 [facility] Comment on above: Order Comment: Speci men Type: BLOOD SPECIMEN Ordering Facility: [facility] Address: [address] [place] [address] Performed By: #### 5 8410-2 #### [facility] CLIA [id number] [address] Hemoglobin (Bld) [Mass/Vol] 10.4 g/dL Low 11.5-15.5 [facility] Comment on above: Order Comment: Speci men Type: BLOOD SPECIMEN Ordering Facility: [facility] Address: [address] [place] [address] Performed By: #### 5 8410-2 #### [facility] CLIA [id number] [address] [place] [address] [place] MCH (RBC) [Entitic mass] 30.4 pg Normal 26.0-34.0 [facility] Comment on above: Order Comment: Speci men Type: BLOOD SPECIMEN Ordering Facility: [facility] Address: [address] [place] [address] Performed By: #### 5 8410-2 #### [facility] CLIA [id number] [address] MCHC (RBC) [Mass/Vol] 33.0 g/dL Normal 30.5-36.0 [facility] Comment on above: Order Comment: Speci men Type: BLOOD SPECIMEN Ordering Facility: [facility] Address: [address] [place] [address] Performed By: #### 5 8410-2 #### [facility] CLIA [id number] [address] [address]RE[address] MCV (RBC) [Entitic vol] 92.1 fL Normal 80.0-100.0 [facility] Comment on above: Order Comment: Speci men Type: BLOOD SPECIMEN Ordering Facility: [facility] Address: [address] [place] [address] Performed By: #### 5 8410-2 #### [facility] CLIA [id number] [address] Nucleated RBC (Bld) [#/Vol] 10*3/uL Normal <0.01 [facility] Comment on above: Order Comment: Speci men Type: BLOOD SPECIMEN Ordering Facility: [facility] Address: [address] [place] [address] Performed By: #### 5 8410-2 #### [facility] CLIA [id number] [address] Platelet mean volume (Bld) [Entitic vol] 11.5 fL Normal 9.0-12.7 [facility] Comment on above: Order Comment: Speci men Type: BLOOD SPECIMEN Ordering Facility: [facility] Address: [address] [place] [address] Performed By: #### 5 8410-2 #### [facility] CLIA [id number] [address] Platelets (Bld) [#/Vol] 190 10*3/uL Normal 150-400 [facility] Comment on above: Order Comment: Speci men Type: BLOOD SPECIMEN Ordering Facility: [facility] Address: [address] [place] [address] Performed By: #### 5 8410-2 #### [facility] CLIA [id number] [address] RBC (Bld) [#/Vol] 3.42 10*6/uL Low 3.90-5.20 [facility] Comment on above: Order Comment: Speci men Type: BLOOD SPECIMEN Ordering Facility: [facility] Address: [address] [place] [address] Performed By: #### 5 8410-2 #### [facility] CLIA [id number] [address] WBC (Bld) [#/Vol] 9.71 10*3/uL Normal 3.70-11.00 [facility] Comment on above: Order Comment: Speci men Type: BLOOD SPECIMEN Ordering Facility: [facility] Address: [address] [place] [address] Performed By: #### 5 8410-2 #### [facility] CLIA [id number] [address] CNDSon 08-15-2024 CNDS HNO ID: [id number] Author: VIBHA FLORES MD Service: General Surgery [...] Orders Placed This Encounter DRESSING CARE (SPECIFY) ([place]), Order Comments: Remove on POD 2 Freq: [...] Your Medications These medications were sent to [facility] [address] [place] [address] Hours: Sunday-Sunday, 8am-7pm, Sunday 9am-1pm oxyCODONE IR 5 mg immediate release tablet FUTURE APPOINTMENTS: Future Appointments Date Time Provider Department Center 08/29/2024 11:00 AM Vibha Flores MD [facility] The patient's risk for 30-day readmission is determined using the following contributing factors: Predictive Model Details 10% (Low) Factor Value Calculated 08/15/2024 05:19 12% Admission Provider (more content not included)... Normal [facility] BRIEF OP NOTon 08-14-2024 BRIEF OP NOT HNO ID: [id number] Author: VIBHA FLORES MD Service: General Surgery [...] BRIEF OPERATIVE / PROCEDURE NOTE LOG ID: [id number] SURGERY/PROCEDURE DATE: 08/13/2024 INCISION/PROCEDURE START TIME: 3:42 PM INCISION CLOSE/PROCEDURE END TIME: 7:36 PM SURGEON(S)/PROCEDURALIST(S ) AND TREE DEADENER(S): Surgeons and Role: * Vibha Flores MD - Primary * Cirilo Adkins MD - Assisting * Noemy Navarrete DO - Resident - Assisting Reporting Analyst: Erik Salazar SA Reporting Analyst (Relief): Zunilda Stein SA SURGERY/PROCEDURE(S): Robotic LAR ANESTHESIA: General FINDINGS: Large upper rectal mass Adequate proximal and distal margins EEA ESTIMATED BLOOD LOSS: 20 mls SPECIMENS: Left descending colon and rectum COMPLICATIONS: None CLOSURE TECHNIQUE: Primary PRE-OP/PRE-PROCEDURE DIAGNOSIS: Rectal adenocarcinoma POST-OP/POST-PROCEDURE DIAGNOSIS: Same as Preop SIGNATURE: Noemy Navarrete DO PATIENT NAME: Trudy Calle DATE: August 14, 2024 TIME: 6:03 AM Normal [facility] Basic metabolic 2000 panelon 08-14-2024 Anion gap [Moles/Vol] 11 mmol/L Normal 8-15 [facility] Comment on above: Order Comment: Speci men Type: BLOOD SPECIMEN Ordering Facility: [facility] Address: [address] [place] [address] Performed By: #### 2 4321-2 #### [facility] CLIA [id number] 1 [place] [address] [place] Calcium [Mass/Vol] 8.5 mg/dL Normal 8.5-10.2 [facility] Comment on above: Order Comment: Speci men Type: BLOOD SPECIMEN Ordering Facility: [facility] Address: [address] [place] [address] Performed By: #### 2 4321-2 #### [facility] CLIA [id number] 1 [place] [address] [place] Chloride [Moles/Vol] 102 mmol/L Normal 98-107 [facility] Comment on above: Order Comment: Speci men Type: BLOOD SPECIMEN Ordering Facility: [facility] Address: [address] [place] [address] Performed By: #### 2 4321-2 #### [facility] CLIA [id number] 1 [place] [address] [place] CO2 [Moles/Vol] 23 mmol/L Normal 22-30 [facility] Comment on above: Order Comment: Speci men Type: BLOOD SPECIMEN Ordering Facility: [facility] Address: [address] [place] [address] Performed By: #### 2 4321-2 #### [facility] CLIA [id number] 1 [place] [address] [place] Creatinine [Mass/Vol] 1.04 mg/dL High 0.58-0.96 [facility] Comment on above: Order Comment: Effie aguayo Type: BLOOD SPECIMEN Ordering Facility: [facility] Address: [address] [place] [address] Performed By: #### 2 4321-2 #### [facility] CLIA [id number] [address] [place] Creatinine and Glomerular filtration rate.predicted panel (S/P/Bld) 60 mL/min/1.73m??? Normal >=60 [facility] Comment on above: Order Comment: Effie aguayo Type: BLOOD SPECIMEN Ordering Facility: [facility] Address: [address] [place] [address] Result Comment: Devika mated Glomerular Filtration Rate [...] GFR. Performed By: #### 2 4321-2 #### [facility] CLIA [id number] [address] [place] [address] [place] Glucose [Mass/Vol] 131 mg/dL High 74-99 [facility] Comment on above: Order Comment: Effie dede Type: BLOOD SPECIMEN Ordering Facility: [facility] Address: [address] [place] [address] Result Comment: The [place] Diabetes Association (ADA) provides guidance for cutoff [...] Standards of Medical Care in Diabetes 2016, [place] [employer] Association. Diabetes Care. 2016.39(Suppl 1). Performed By: #### 2 4321-2 #### [facility] CLIA [id number] [address] [place] Potassium [Moles/Vol] 3.8 mmol/L Normal 3.7-5.1 [facility] Comment on above: Order Comment: Speci men Type: BLOOD SPECIMEN Ordering Facility: [facility] Address: [address] [place] [address] Performed By: #### 2 4321-2 #### [facility] CLIA [id number] [address] [place] Sodium [Moles/Vol] 136 mmol/L Normal 136-144 [facility] Comment on above: Order Comment: Speci men Type: BLOOD SPECIMEN Ordering Facility: [facility] Address: [address] [place] [address] Performed By: #### 2 4321-2 #### [facility] CLIA [id number] [address] STATES OF [facility] Urea nitrogen [Mass/Vol] 22 mg/dL High 7-21 [facility] Comment on above: Order Comment: Speci men Type: BLOOD SPECIMEN Ordering Facility: [facility] Address: [address] [place] [address] Performed By: #### 2 4321-2 #### [facility] CLIA [id number] [address] STATES OF [facility] CBC panel Auto (Bld)on 08-14 Erythrocyte distribution width (RBC) [Ratio] 13.6 % Normal 11.5-15.0 [facility] Comment on above: Order Comment: Speci men Type: BLOOD SPECIMEN Ordering Facility: [facility] Address: [address] [place] [address] Performed By: #### 5 8410-2 #### [facility] CLIA [id number] [address] OF [facility] Hematocrit (Bld) [Volume fraction] 33.8 % Low 36.0-46.0 [facility] Comment on above: Order Comment: Speci men Type: BLOOD SPECIMEN Ordering Facility: [facility] Address: [address] [place] [address] Performed By: #### 5 8410-2 #### [facility] CLIA [id number] [address] Hemoglobin (Bld) [Mass/Vol] 11.2 g/dL Low 11.5-15.5 [facility] Comment on above: Order Comment: Speci men Type: BLOOD SPECIMEN Ordering Facility: [facility] Address: [address] [place] [address] Performed By: #### 5 8410-2 #### [facility] CLIA [id number] [address] MCH (RBC) [Entitic mass] 30.1 pg Normal 26.0-34.0 [facility] Comment on above: Order Comment: Speci men Type: BLOOD SPECIMEN Ordering Facility: [facility] Address: [address] [place] [address] Performed By: #### 5 8410-2 #### [facility] CLIA [id number] [address] STATES [facility] MCHC (RBC) [Mass/Vol] 33.1 g/dL Normal 30.5-36.0 [facility] Comment on above: Order Comment: Speci men Type: BLOOD SPECIMEN Ordering Facility: [facility] Address: [address] [place] [address] Performed By: #### 5 8410-2 #### [facility] CLIA [id number] [address] STATES [facility] MCV (RBC) [Entitic vol] 90.9 fL Normal 80.0-100.0 [facility] Comment on above: Order Comment: Speci men Type: BLOOD SPECIMEN Ordering Facility: [facility] Address: [address] [place] [address] Performed By: #### 5 8410-2 #### [facility] CLIA [id number] [address] Nucleated RBC (Bld) [#/Vol] 10*3/uL Normal <0.01 [facility] Comment on above: Order Comment: Speci men Type: BLOOD SPECIMEN Ordering Facility: [facility] Address: [address] [place] [address] Performed By: #### 5 8410-2 #### [facility] CLIA [id number] [address] OF [place] Platelet mean volume (Bld) [Entitic vol] 11.5 fL Normal 9.0-12.7 [facility] Comment on above: Order Comment: Speci men Type: BLOOD SPECIMEN Ordering Facility: [facility] Address: [address] [place] [address] Performed By: #### 5 8410-2 #### [facility] CLIA [id number] [address] OF [place] Platelets (Bld) [#/Vol] 211 10*3/uL Normal 150-400 [facility] Comment on above: Order Comment: Speci men Type: BLOOD SPECIMEN Ordering Facility: [facility] Address: [address] [place] [address] Performed By: #### 5 8410-2 #### [facility] CLIA [id number] [address] [place] RBC (Bld) [#/Vol] 3.72 10*6/uL Low 3.90-5.20 [facility] Comment on above: Order Comment: Speci men Type: BLOOD SPECIMEN Ordering Facility: [facility] Address: [address] [place] [address] Performed By: #### 5 8410-2 #### [facility] CLIA [id number] [address] OF [place] WBC (Bld) [#/Vol] 10.38 10*3/uL Normal 3.70-11.00 [facility] Comment on above: Order Comment: Speci men Type: BLOOD SPECIMEN Ordering Facility: [facility] Address: [address] [place] [address] Performed By: #### 5 8410-2 #### [facility] CLIA [id number] 1 [place] [address] [place] ANES POSTPROC EVALon 025 ANES POSTPROC EVAL HNO ID: [id number] Author: ARIEL MONROY DO Service: Anesthesiology Author [...] August 13, 2024 TIME: 9:40 PM CSN: [id number] Normal [facility] ANES PRE-OPon 08-13-2024 ANES PRE-OP HNO ID: [id number] Author: MERLIN ESQUIVEL MD Service: Anesthesiology Author Type: Physician Type: Anesthesia Preprocedure Evaluation Filed: 08/13/2024 11:52 Note Text: ANESTHESIOLOGY DAY OF SURGERY NOTE : 1960 Procedure Information Date/Time: 08/13/24 1315 Procedure: XI ROBOTIC LAPAROSCOPIC RESECTION COLON LOW ANTERIOR W/ COLORECTAL ANASTOMOSIS/ POSSIBLE STOMA/ ERAS/ W BLOCK - ERAS WITH BLOCK Location: [place] [facility] [place] [facility] Surgeons: Vibha Flores MD Estimated body mass index is 32.26 [...] and consent discussed: yes. Patient / Responsible Libertarian agrees to proceed: yes Patient / Surrogate [...] August 13, 2024 TIME: 11:52 AM CSN: [id number] Normal [facility] MISMATCH REPAIR PROTEINS BY IHCon 08-13-2024 AP BIOMARKER DISCLAIMER Normal [facility] Comment on above: Order Comment: Speci men Type: TISSUE SPECIMEN Ordering Facility: [facility] Address: [address] [place] [address] Result Comment: Tal shankar Developed Test (LDT) Disclaimer: Performance characteristics of immunohistochemical, immunofluorescent and chromogenic in-situ hybridization tests have been determined by the performing laboratory within [facility]???s [facility] Pathology and Laboratory Medicine Department ([facility], [facility], [facility], [facility], [facility], [facility], or [facility]) in a manner consistent with CLIA requirements. One or more of these tests have not been cleared or approved by the FDA. RT-PLM is regulated under CLIA as qualified to perform high-complexity testing. These tests are used for clinical purposes. They should not be regarded as investigational or for research. Positive and negative controls stain appropriately. Performed By: #### L [id number] #### [facility] CLIA [id number] [address] [place] [address] [place] AP BLOCK ID A4 Normal [facility] Comment on above: Order Comment: Effie aguayo Type: TISSUE SPECIMEN Ordering Facility[facility] Address: [address] [place] [address] Performed By: #### L [id number] #### [facility] CLIA [id number] [address] [place] [address] BIOMARKER INTERPRETATION COMMENT AND REFERENCE RANGE Normal [facility] Comment on above: Order Comment: Effie aguayo Type: TISSUE SPECIMEN Ordering Facility: [facility] Address: [address] [place] [address] [address]: [address] expression of MMR [...] patients with metastatic carcinoma, Melinda et al. ([facility] 2015;372:2509-20) reported that clinical benefit [...] questions about this result, please call the [facility] for [employer] at [phone]. Performed By: #### L [id number] #### [facility] CLIA [id number] [address] [place] [address] BIOMARKER METHOD Immunohistochemistry was performed on formalin fixed paraffin-embedded tissue using the following clones: MLH1 (clone M1 mouse monoclonal); MSH2 ([id number] mouse monoclonal); and MSH6 (SP93 rabbit monoclonal); followed by ultrasensitive bright field detection (Optiview with amplification) from [[employer], [place]]. PMS2 (EP51 Rabbit monoclonal, [employer] Byliner); followed by ultrasensitive bright field detection ( Dumont Refine Polymer DAB Detection) from [[employer], [place], [place]]. [facility] Comment on above: Order Comment: Speci men Type: TISSUE SPECIMEN Ordering Facility[facility] Address: [address] [place] [address] Performed By: #### L [id number] #### [facility] CLIA [id number] [address] [place] [address] CASE NUMBER MMR [id number] [facility] Comment on above: Order Comment: Speci men Type: TISSUE SPECIMEN Ordering Facility: [facility] Address: [address] [place] [address] Performed By: #### L [id number] #### [facility] CLIA [id number] [address] [place] [address] OF [facility] FINAL PERFORMING LAB [facility] Comment on above: Order Comment: Speci men Type: TISSUE SPECIMEN Ordering Facility: [facility] Address: [address] [place] [address] Result Comment: Diag nostic interpretation performed at: [facility], [address] [place] [address] CLIA# [id number] Air Bag Curer: Jordi Mcclelland MD Electronically signed out by: Asa Jean Baptiste MD Performed By: #### L [id number] #### [facility] CLIA [id number] [address] [place] [address] [place] Order Comment: Speci men Type: TISSUE SPECIMENOrdering Facility: [facility] Address: [address] [place] [address] Result Comment: Diag nostic interpretation performed at: [facility], [address] [address] CLIA# [id number] Air Bag Curer: Siddhartha Hsu MD Performed By: #### 6 6121-5 ####[facility] [id number] [place] [address] [place] FIXATIVE Formalin, 10% Neutra l Buffered Normal [facility] Comment on above: Order Comment: Speci men Type: TISSUE SPECIMEN Ordering Facility[facility] Address: [address] [place] [address] Performed By: #### L [id number] #### [facility] CLIA [id number] [address] [place] [address] [place] MLH1 IMMUNOHISTOCHEMICAL RESULTS Normal/Intact Nuclear Expression Normal [facility] Comment on above: Order Comment: Speci men Type: TISSUE SPECIMEN Ordering Facility[facility] Address: [address] [place] [address] Performed By: #### L [id number] #### [facility] CLIA [id number] [address] [place] [address] [place] MLH1 PROMOTER METHYLATION ASSAY No Normal [facility] Comment on above: Order Comment: Speci men Type: TISSUE SPECIMEN Ordering Facility[facility] Address: [address] [place] [address] Performed By: #### L [id number] #### [facility] CLIA [id number] [address] [place] [address] [place] MMR INTERPRETATION Proficient (Trang Barajas) Normal [facility] Comment on above: Order Comment: Speci men Type: TISSUE SPECIMEN Ordering Facility: [facility] Address: [address] [place] [address] Performed By: #### L [id number] #### [facility] CLIA [id number] [address] [place] [address] [place] MSH2 IMMUNOHISTOCHEMICAL RESULTS Normal/Intact Nuclear Expression Normal [facility] Comment on above: Order Comment: Speci men Type: TISSUE SPECIMEN Ordering Facility[facility] Address: [address] [place] [address] Performed By: #### L [id number] #### [facility] CLIA [id number] [address] [place], [place] [address] [place] MSH6 IMMUNOHISTOCHEMICAL RESULTS Normal/Intact Nuclear Expression Normal [facility] Comment on above: Order Comment: Speci men Type: TISSUE SPECIMEN Ordering [facility] Address: [address] [place] [address] Performed By: #### L [id number] #### [facility] CLIA [id number] [address] [place] [address] [place] PMS2 IMMUNOHISTOCHEMICAL RESULTS Normal/Intact Nuclear Expression Normal [facility] Comment on above: Order Comment: Speci men Type: TISSUE SPECIMEN Ordering Facility[facility] Address: [address] [place] [address] Performed By: #### L [id number] #### [facility] CLIA [id number] [address] [place] [address] [place] TUMOR TYPE MMR Primary Colorectal Adenocarcinoma Normal [facility] Comment on above: Order Comment: Speci men Type: TISSUE SPECIMEN Ordering Facility: [facility] Address: [address] [place] [address] Performed By: #### L [id number] #### [facility] CLIA [id number] [address] [place] [address] [place] OPERATIVE NOon 08-13-2024 OPERATIVE NO HNO ID: [id number] Author: VIBHA FLORES MD Service: General Surgery Author Type: Physician Type: Operative Report Filed: 08/14/2024 11:48 Note Text: OPERATIVE REPORT Log ID: [id number] Surgery Date: 08/13/2024 Incision/Procedure Start Time: 3:42 PM Incision Close/Procedure End Time: 7:36 PM Surgeon(s) and Zipper Trimmer Hand(s): Surgeons and Role: * Vibha Flores MD [...] was e (more content not included)... Normal [facility] Pathology biopsy report Jose David (Tiss)on 08-13-2024 AP DISCLAIMER [facility] Comment on above: Order Comment: Effie aguayo Type: TISSUE SPECIMENOrdering Facility: [facility] Address: [address] [place] [address] Result Comment: Tal Noble Test (LDT) Disclaimer: Performance characteristics of immunohistochemical, immunofluorescent, and chromogenic in-situ hybridization tests have been determined by the performing laboratory within [facility]'s [facility] Pathology and Laboratory Medicine Department ([facility], [facility], [facility], [facility], [facility], [facility], or [facility]) in a manner consistent with CLIA requirements. One or more of these tests may not have been cleared or approved by the FDA. RT-PLM is regulated under CLIA as qualified to perform high-complexity testing. These tests are used for clinical purposes. These should not be regarded as investigational or for research. Positive and negative controls stain appropriately. Performed By: #### 6 6121-5 ####[facility] [place] [id number] [address] BLOCK FOR ADDITIONAL BIOMARKERS/MOLECULAR STUDIES A4 Normal [facility] Comment on above: Order Comment: Effie aguayo Type: TISSUE SPECIMENOrdering Facility: [facility] Address: [address] [place] [address] Performed By: #### 6 6121-5 ####[facility] [place] [id number] [address] OF [place] CASE REPORT [facility] Comment on above: Order Comment: Effie aguayo Type: TISSUE SPECIMENOrdering Facility: [facility] Address: [address] [place] [address] Result Comment: Surg ica Pathology Report Case: [id number] Authorizing Provider: Vibha Flores MD Collected: 08/13/2024 07:26 PM Ordering Location: [facility] Received: 08/14/2024 08:11 AM Pathologist: Honey Paula MD Specimen: Colon, Sigmoid, Resection, RECTOSIGMOID Performed By: #### 6 6121-5 ####[facility] [id number] [address] CLINICAL HISTORY Normal [facility] Comment on above: Order Comment: Speci men Type: TISSUE SPECIMENOrdering Facility: [facility] Address: [address] [place] [address] Result Comment: Pre- op diagnosis: Rectal cancer (HCC) [C20] Performed By: #### 6 6121-5 ####[facility] [id number] [address] FINAL DIAGNOSIS Normal [facility] Comment on above: Order Comment: Speci men Type: TISSUE SPECIMENOrdering Facility: [facility] Address: [address] [place] [address] Result Comment: Rect osigmoid, low anterior resection: - Moderately differentiated adenocarcinoma, invading through the muscularis propria into the pericolonic/perirectal tissue. - 3 out of 12 lymph nodes positive for carcinoma (3/12). - All margins negative for carcinoma. - Focal endometrial type stroma and glands, suggestive of endometriosis. - See comment and CAP synoptic report. at 1558 EDT Performed By: #### 6 6121-5 ####[facility]ORATORYCLIA [id number] [address] GROSS DESCRIPTION Normal [facility] Comment on above: Order Comment: Speci men Type: TISSUE SPECIMENOrdering Facility: [facility] Address: [address] [place] [address] Result Comment: Rachel knapp, Sigmoid, Resection Received [...] 0.3 to 1.8 cm in greatest dimension. Turbine Technician sections are submitted in formalin as follows: [...] node serially sectioned Gross examination performed at [facility], [address] August 14, 2024 12:18 PM Performed By: #### 6 6121-5 ####[facility] LABORATORYCLIA [id number] [place] [address] [place] SYNOPTIC REPORT Normal [facility] Comment on above: Order Comment: Speci men Type: TISSUE SPECIMENOrdering Facility: [facility] Address: [address] [place] [address] Result Comment: COLO N AND RECTUM: Resection [...] Category: [id number] Performed By: #### 6 6121-5 ####[facility] LABORATORYCLIA [id number] [address] OF [facility] NURSING PROGon 08-08-2024 NURSING PROG HNO ID: [id number] Author: OSMEL MAYES APRN.TAX ADJUSTER Service: General Surgery Author Type: Nurse Practitioner Type: Nursing Progress Note Filed: 08/08/2024 10:39 Note Text: -- Summary: anesthesia -- Reviewed patient health history, PCP last office note, concerns from PAT visit with Dr. Gentile in anesthesia. Per Dr. Gentile, OK to proceed with procedure as planned. Normal [facility] Basic metabolic 2000 panelon 08-07-2024 Anion gap [Moles/Vol] 13 mmol/L 8 - 15 mmol/L [facility] Calcium [Mass/Vol] 9.5 mg/dL 8.5 - 10. 2 mg/dL [facility] Chloride [Moles/Vol] 98 mmol/L 98 - 10 7 mmol/L [facility] CO2 [Moles/Vol] 26 mmol/L 22 - 30 mmol/L [facility] Creatinine [Mass/Vol] 1.02 mg/dL High 0.58 - 0.96 mg/dL [facility] GFR/1.73 sq M.predicted among non-blacks MDRD (S/P/Bld) [Vol rate/Area] 61 mL/min/{1.73_m2} - PINF [facility] Comment on above: Estimated Glomerular Filtration [...] 101 mg/dL High 74 - 99 mg/dL [facility] Comment on above: The [place] Diabete s Association (ADA) provides guidance for [...] Standards of Medical Care in Diabetes 2016, [place] Diabetes Association. Diabetes Care. 2016.39(Suppl 1). Interpretation and review of laboratory results Abnormal [facility] Potassium [Moles/Vol] 3.8 mmol/L 3.7 - 5.1 mmol/L [facility] Sodium [Moles/Vol] 137 mmol/L 136 - 144 mmol/L [facility] Urea nitrogen [Mass/Vol] 22 mg/dL High 7 - 21 mg/dL [facility] Anion gap [Moles/Vol] 13 mmol/L Normal 8-15 [facility] Comment on above: Order Comment: Speci men Type: BLOOD SPECIMEN [facility] Address: [address] [place] [address] Performed By: #### 2 4321-2 #### [facility] CLIA [id number] [address] [place] Calcium [Mass/Vol] 9.5 mg/dL Normal 8.5-10.2 [facility] Comment on above: Order Comment: Speci men Type: BLOOD SPECIMEN [facility] Address: [address] [place] [address] Performed By: #### 2 4321-2 #### [facility] CLIA [id number] 1 [place] [address] [place] Chloride [Moles/Vol] 98 mmol/L Normal 98-107 [facility] Comment on above: Order Comment: Speci men Type: BLOOD SPECIMEN [facility] Address: [address] [place] [address] Performed By: #### 2 4321-2 #### [facility] CLIA [id number] [address] [place] CO2 [Moles/Vol] 26 mmol/L Normal 22-30 [facility] Comment on above: Order Comment: Speci men Type: BLOOD SPECIMEN [facility] Address: [address] [place] [address] Performed By: #### 2 4321-2 #### [facility] CLIA [id number] [address] [place] Creatinine [Mass/Vol] 1.02 mg/dL High 0.58-0.96 [facility] Comment on above: Order Comment: Speci men Type: BLOOD SPECIMEN [facility] Address: [address] [place] [address] Performed By: #### 2 4321-2 #### [facility] CLIA [id number] [address] OF [place] Creatinine and Glomerular filtration rate.predicted panel (S/P/Bld) 61 mL/min/1.73m??? Normal >=60 [facility] Comment on above: Order Comment: Effie aguayo Type: BLOOD SPECIMEN [facility] Address: [address] [place] [address] Result Comment: Deviak mated Glomerular Filtration Rate (eGFR) is calculated [...] GFR. Performed By: #### 2 4321-2 #### [facility] CLIA [id number] 1 [place] [address] [place] Glucose [Mass/Vol] 101 mg/dL High 74-99 [facility] Comment on above: Order Comment: Effie aguayo Type: BLOOD SPECIMEN [facility] Address: [address] [place] [address] Result Comment: The [place] Diabetes Association (ADA) provides guidance for cutoff [...] Standards of Medical Care in Diabetes 2016, [place] Diabetes Association. Diabetes Care. 2016.39(Suppl 1). Performed By: #### 2 4321-2 #### [facility] CLIA [id number] 1 [place] [address] [place] Potassium [Moles/Vol] 3.8 mmol/L Normal 3.7-5.1 [facility] Comment on above: Order Comment: Effie aguayo Type: BLOOD SPECIMEN [facility] Address: [address] [place] [address] Performed By: #### 2 4321-2 #### [facility] CLIA [id number] [address] STATES [facility] Sodium [Moles/Vol] 137 mmol/L Normal 136-144 [facility] Comment on above: Order Comment: Speci men Type: BLOOD SPECIMEN [facility] Address: [address] [place] [address] Performed By: #### 2 4321-2 #### [facility] CLIA [id number] [address] STATES [facility] Urea nitrogen [Mass/Vol] 22 mg/dL High 7-21 [facility] Comment on above: Order Comment: Speci men Type: BLOOD SPECIMEN [facility] Address: [address] [place] [address] Performed By: #### 2 4321-2 #### [facility] CLIA [id number] [address] CBC panel Auto (Bld)on 08-07 Erythrocyte distribution width (RBC) [Ratio] 13.9 % 11.5 - 15.0 % [facility] Hematocrit (Bld) [Volume fraction] 39 % 36.0 - 46.0 % [facility] Hemoglobin (Bld) [Mass/Vol] 12.8 g/dL 11.5 - 15.5 g/dL [facility] Interpretation and review of laboratory results Normal [facility] MCH (RBC) [Entitic mass] 30.4 pg 26.0 - 34.0 pg [facility] MCHC (RBC) [Mass/Vol] 32.8 g/dL 30.5 - 36.0 g/dL [facility] MCV (RBC) [Entitic vol] 92.6 fL 80.0 - 100.0 fL [facility] Nucleated RBC (Bld) [#/Vol] NINF [facility] Platelet mean volume (Bld) [Entitic vol] 11.9 fL 9.0 - 12.7 fL [facility] Platelets (Bld) [#/Vol] 281 10*3/uL [facility] RBC (Bld) [#/Vol] 4.21 10*6/uL 3.90 - 5.2 0 m/uL [facility] WBC (Bld) [#/Vol] 8.3 10*3/uL [facility] Erythrocyte distribution width (RBC) [Ratio] 13.9 % Normal 11.5-15.0 [facility] Comment on above: Order Comment: Speci men Type: BLOOD SPECIMEN [facility] Address: [address] [place] [address] Performed By: #### 5 8410-2 #### [facility] CLIA [id number] [address] Hematocrit (Bld) [Volume fraction] 39.0 % Normal 36.0-46.0 [facility] Comment on above: Order Comment: Speci men Type: BLOOD SPECIMEN [facility] Address: [address] [place] [address] Performed By: #### 5 8410-2 #### [facility] CLIA [id number] [address] STATES OF [facility] Hemoglobin (Bld) [Mass/Vol] 12.8 g/dL Normal 11.5-15.5 [facility] Comment on above: Order Comment: Speci men Type: BLOOD SPECIMEN [facility] Address: [address] [place] [address] Performed By: #### 5 8410-2 #### [facility] CLIA [id number] [address] MCH (RBC) [Entitic mass] 30.4 pg Normal 26.0-34.0 [facility] Comment on above: Order Comment: Speci men Type: BLOOD SPECIMEN [facility] Address: [address] [place] [address] Performed By: #### 5 8410-2 #### [facility] CLIA [id number] [address] STATES OF [facility] MCHC (RBC) [Mass/Vol] 32.8 g/dL Normal 30.5-36.0 [facility] Comment on above: Order Comment: Speci men Type: BLOOD SPECIMEN [facility] Address: [address] [place] [address] Performed By: #### 5 8410-2 #### [facility] CLIA [id number] [address] MCV (RBC) [Entitic vol] 92.6 fL Normal 80.0-100.0 [facility] Comment on above: Order Comment: Speci men Type: BLOOD SPECIMEN [facility] Address: [address] [place] [address] Performed By: #### 5 8410-2 #### [facility] CLIA [id number] [address] Nucleated RBC (Bld) [#/Vol] 10*3/uL Normal <0.01 [facility] Comment on above: Order Comment: Speci men Type: BLOOD SPECIMEN [facility] Address: [address] [place] [address] Performed By: #### 5 8410-2 #### [facility] CLIA [id number] [address] Platelet mean volume (Bld) [Entitic vol] 11.9 fL Normal 9.0-12.7 [facility] Comment on above: Order Comment: Speci men Type: BLOOD SPECIMEN [facility] Address: [address] [place] [address] Performed By: #### 5 8410-2 #### [facility] CLIA [id number] [address] OF [place] Platelets (Bld) [#/Vol] 281 10*3/uL Normal 150-400 [facility] Comment on above: Order Comment: Speci men Type: BLOOD SPECIMEN [facility] Address: [address] [place] [address] Performed By: #### 5 8410-2 #### [facility] CLIA [id number] [address] OF [place] RBC (Bld) [#/Vol] 4.21 10*6/uL Normal 3.90-5.20 [facility] Comment on above: Order Comment: Speci men Type: BLOOD SPECIMEN [facility] Address: [address] [place] [address] Performed By: #### 5 8410-2 #### [facility] CLIA [id number] [address] OF [facility] WBC (Bld) [#/Vol] 8.30 10*3/uL Normal 3.70-11.00 [facility] Comment on above: Order Comment: Speci men Type: BLOOD SPECIMEN [facility] Address: [address] [place] [address] Performed By: #### 5 8410-2 #### [facility] CLIA [id number] [address] CNOVon 08-07-2024 CNOV Office Visit (AKWO) -- TRUDY CALLE ([id number]) 1960 F Date Time Provider Department 08/07/24 [...] PM CONTACT#: [id number] Referring Provider: VIBHA FLORES [[id number]] Allergies As of Date: 08/07/2024 (No Known Allergies) Date Reviewed: 08/07/2024 Reviewed by: Osmel Mayes APRN.TAX ADJUSTER - Fully Assessed Reason for Visit: Stoma [...] Encounter Status:Closed by AMELIA BHAT on 08/07/24 [facility] CONFIRM BLOOD TYPEon 025 ABO group Nom (Bld) A [facility] Rh Nom (Bld) Positive [facility] ABO A [facility] Comment on above: Order Comment: Speci men Type: BLOOD SPECIMEN [facility] Address: [address] [place] [address] Performed By: #### C ONABO #### [facility] CLIA [id number] [address] [place] [address] Rh Nom (Bld) Positive [facility] Comment on above: Order Comment: Speci men Type: BLOOD SPECIMEN [facility] Address: [address] [place] [address] Performed By: #### C ONABO #### [facility] CLIA [id number] [address] [place] [address] HISTORY PHYSICALon HISTORY PHYSICAL HNO ID: [id number] Author: OSMEL MAYES APRN.TAX ADJUSTER Service: ? Author Type: Nurse Practitioner Type: [...] 11/06/2024 [facility] Surgery or Procedure:: [facility] Status of surgery/procedure:: Scheduled Date of surgery/procedure:: [...] and ob (more content not included)... Normal [facility] TYPE AND SCREEN,30 DAYon ABO group Nom (Bld) A [facility] Blood group antibody screen Ql Negative [facility] Rh Nom (Bld) Positive [facility] ABO A Normal [facility] Comment on above: Order Comment: Speci men Type: BLOOD SPECIMENOrdering Facility: [facility] Address: [address] [place] [address] Performed By: #### T SCR30 ####[facility] BANKCLIA [id number] [place] [id number] [place] OF [facility] Rh Nom (Bld) Positive Normal [facility] Comment on above: Order Comment: Speci men Type: BLOOD SPECIMENOrdering Facility: [facility] Address: [address] [place] [address] Performed By: #### T SCR30 ####[facility] BANKCLIA [id number] [address] [place] Albumin to globulin ratioOrd ered By: Antoni Slaughter on 08-04-2024 Albumin/Globulin [Mass ratio] 1.1 {ratio} 0.9-2.4 [facility] Bilirubin, totalOrdered By: Antoni Slaughter on 08-04-2024 Bilirubin [Mass/Vol] 0.50 mg/dL 0.20-1.00 [facility] Comment on above: For patients on eltr ombopag therapy, use of Dimension [place]calpin TBIL is not recommended. Blood urea nitrogen (BUN)/cr eatinine ratioOrdered By: Antoni Slaughter on 08-04-2024 Urea nitrogen/Creatinine [Mass ratio] 21.5 mg/mg High 10-20 [facility] Carbon dioxide measurementOr dered By: Antoni Slaughter on 08-04-2024 CO2 [Moles/Vol] 28.0 mmol/L 21.0-32.0 [facility] Chloride measurementOrdered By: Antoni Slaughter on 08-04-2024 Chloride [Moles/Vol] 106 mmol/L 98-107 [facility] Comprehensive Metabolic Prof ilon 08-04-2024 Albumin [Mass/Vol] 3.7 g/dL Normal 3.2-5.0 [facility] Comment on above: Performed By: #### L 100.9950, L503.6550, L500.4050, L100.0100, L501.2300, L3100.2300, L501.5200, L503.6030 #### [facility] [address] [place], [address] Albumin/Globulin [Mass ratio] 1.1 {ratio} Normal 0.9-2.4 [facility] Comment on above: Performed By: #### L 100.9950, L503.6550, L500.4050, L100.0100, L501.2300, L3100.2300, L501.5200, L503.6030 #### [facility] [address] [place], [address] ALK P 115 U/L Normal 45-117 [facility] Comment on above: Performed By: #### L 100.9950, L503.6550, L500.4050, L100.0100, L501.2300, L3100.2300, L501.5200, L503.6030 #### [facility] [address] [place], [address] ALT [Catalytic activity/Vol] 20 U/L Normal 13-56 [facility] Comment on above: Performed By: #### L 100.9950, L503.6550, L500.4050, L100.0100, L501.2300, L3100.2300, L501.5200, L503.6030 #### [facility] [address] [place], [address] AST [Catalytic activity/Vol] 10 U/L Low 15-37 [facility] Comment on above: Performed By: #### L 100.9950, L503.6550, L500.4050, L100.0100, L501.2300, L3100.2300, L501.5200, L503.6030 #### [facility] [address] [place], [address] Bilirubin [Mass/Vol] 0.50 mg/dL Normal 0.20-1.00 [facility] Comment on above: Result Comment: For patients on eltrombopag therapy, use of Dimension [place]cal[place] TBIL is not recommended. Performed By: #### L 100.9950, L503.6550, L500.4050, L100.0100, L501.2300, L3100.2300, L501.5200, L503.6030 #### [facility] [address] [place], [address] BUN/CRE 21.5 RATIO High 10-20 [facility] Comment on above: Performed By: #### L 100.9950, L503.6550, L500.4050, L100.0100, L501.2300, L3100.2300, L501.5200, L503.6030 #### [facility] [address] [place], [address] CA,Total 9.5 mg/dL Normal 8.5-10.1 [facility] Comment on above: Performed By: #### L 100.9950, L503.6550, L500.4050, L100.0100, L501.2300, L3100.2300, L501.5200, L503.6030 #### [facility] [address] [place], [address] Chloride [Moles/Vol] 106 mmol/L Normal 98-107 [facility] Comment on above: Performed By: #### L 100.9950, L503.6550, L500.4050, L100.0100, L501.2300, L3100.2300, L501.5200, L503.6030 #### [facility] [address] [place], [address] CO2 [Moles/Vol] 28.0 mmol/L Normal 21.0-32.0 [facility] Comment on above: Performed By: #### L 100.9950, L503.6550, L500.4050, L100.0100, L501.2300, L3100.2300, L501.5200, L503.6030 #### [facility] [address] [place], [place], [id number] (106) Creatinine [Mass/Vol] 0.93 mg/dL Normal 0.55-1.02 [facility] Comment on above: Result Comment: The validity of the calculated GFR GFRAA in patients over 70 years has not been determined. Clinical correlation is essential. Performed By: #### L 100.9950, L503.6550, L500.4050, L100.0100, L501.2300, L3100.2300, L501.5200, L503.6030 #### [facility] [address] [place], [address] (951) EST GFR - AA 78 mL/min Normal >60 [facility] Comment on above: Result Comment: Afri can [place] GFR Calc Performed By: #### L 100.9950, L503.6550, L500.4050, L100.0100, L501.2300, L3100.2300, L501.5200, L503.6030 #### [facility] [address] [place], [place], [id number] GAP 5 Normal 5-15 [facility] Comment on above: Performed By: #### L 100.9950, L503.6550, L500.4050, L100.0100, L501.2300, L3100.2300, L501.5200, L503.6030 #### [facility] [address] [place], [address] (105) GFR/1.73 sq M.predicted among non-blacks MDRD (S/P/Bld) [Vol rate/Area] 64 mL/min/{1.73_m2} Normal >60 [facility] Comment on above: Result Comment: Non- GFR Calc Performed By: #### L 100.9950, L503.6550, L500.4050, L100.0100, L501.2300, L3100.2300, L501.5200, L503.6030 #### [facility] [address] [place], [address] Globulin (S) [Mass/Vol] 3.5 g/dL Normal 2.2-4.2 [facility] Comment on above: Performed By: #### L 100.9950, L503.6550, L500.4050, L100.0100, L501.2300, L3100.2300, L501.5200, L503.6030 #### [facility] [address] [place], [address] Glucose [Mass/Vol] 108 mg/dL High 74-106 [facility] Comment on above: Result Comment: Fast ing Glucose result from 100 to 125 mg/dL suggests IMPAIRED HOMEOSTASIS per A.D.A. criteria. Performed By: #### L 100.9950, L503.6550, L500.4050, L100.0100, L501.2300, L3100.2300, L501.5200, L503.6030 #### [facility] [address] [place], [address] Potassium [Moles/Vol] 4.0 mmol/L Normal 3.5-5.1 [facility] Comment on above: Performed By: #### L 100.9950, L503.6550, L500.4050, L100.0100, L501.2300, L3100.2300, L501.5200, L503.6030 #### [facility] [address] [place], [address] Sodium [Moles/Vol] 140 mmol/L Normal 136-145 [facility] Comment on above: Performed By: #### L 100.9950, L503.6550, L500.4050, L100.0100, L501.2300, L3100.2300, L501.5200, L503.6030 #### [facility] [address] [place], [place], [id number] T PROT 7.2 g/dL Normal 6.4-8.2 [facility] Comment on above: Performed By: #### L 100.9950, L503.6550, L500.4050, L100.0100, L501.2300, L3100.2300, L501.5200, L503.6030 #### [facility] [address] [place], [address] Urea nitrogen [Mass/Vol] 20 mg/dL High 7-18 [facility] Comment on above: Performed By: #### L 100.9950, L503.6550, L500.4050, L100.0100, L501.2300, L3100.2300, L501.5200, L503.6030 #### [facility] [address] [place], [address] Estimated glomerular filtrat ion rate (GFR) AmericanOrdered By: Antoni Slaughter on 08-04-2024 Estimated GFR (MDRD) Amer 78 mL/min >60 [facility] Comment on above: GFR Calc Glomerular filtration rate ( GFR) estimationOrdered By: Antoni Slaughter on 08-04-2024 Estimated GFR (MDRD) Non-Af Amer 64 mL/min >60 [facility] Comment on above: Non- GFR Calc GFR/1.73 sq M.predicted among non-blacks MDRD (S/P/Bld) [Vol rate/Area] 64 mL/min/{1.73_m2} >60 [facility] Comment on above: Non- GFR Calc Glucose measurementOrdered B y: Antoni Slaughter on 08-04-2024 Glucose [Mass/Vol] 108 mg/dL High 74-106 [facility] Comment on above: Fasting Glucose resu lt from 100 to 125 mg/dL suggests IMPAIRED HOMEOSTASIS per A.D.A. criteria. High density lipoprotein (HD L) measurementOrdered By: Antoni Slaughter on 08-04-2024 Cholesterol in HDL [Mass/Vol] 35 mg/dL Low >40 [facility] Comment on above: The drugs N-Acetylcy steine and Metamizole may falsely depress this assay. Reference Range HDL <40 mg/dL Low HDL Cholesterol HDL >or= 60 mg/dL High HDL Cholesterol Internal Medicine Office Vis iton 08-04-2024 Internal Medicine Office Visit [facility] [address] [place], [place] [address] OFFICE VISIT Date of Service: 08/04/24 MR#: [id number] Acct: [id number] Name: TRUDY CALLE Rep #: [id number] : 1960 Provider: Dr. Antoni judge MD Age/Sex: 63/F Location: [facility] Status: Signed Intake Vital Signs 04/30/24 13:52 [...] M FU Chief Complaint: 3 month fu Category Director Required: No Accompanied by: Self Is patient [...] has some left will call when needed [facility] Medical History Wears glasses Smoker History of [...] referred to a colorectal surgeon at the [facility] and plan is for surgery. Overall, she [...] excessive hair (more content not included)... Normal [facility] - Chemistry and C hemistry - challengeOrdered By: Antoni Slaughter on 08-04-2024 AST [Catalytic activity/Vol] 10 U/L Low 15-37 [facility] Lipid Profileon 08-04-2024 Cholesterol [Mass/Vol] 229 mg/dL High 200 [facility] Comment on above: Result Comment: <200 mg/dL Desirable 200-240 mg/dL Borderline >240 mg/dL High Risk Performed By: #### L 100.9950, L503.6550, L500.4050, L100.0100, L501.2300, L3100.2300, L501.5200, L503.6030 #### [facility] [address] [place], [address] Cholesterol in HDL [Mass/Vol] 35 mg/dL Low [facility] Comment on above: Result Comment: The drugs N-Acetylcysteine and Metamizole may falsely depress this assay. Reference Range HDL <40 mg/dL Low HDL Cholesterol HDL >or= 60 mg/dL High HDL Cholesterol Performed By: #### L 100.9950, L503.6550, L500.4050, L100.0100, L501.2300, L3100.2300, L501.5200, L503.6030 #### [facility] [address] [place], [address] Cholesterol in LDL [Mass/Vol] 149 mg/dL High 0-130 [facility] Comment on above: Performed By: #### L 100.9950, L503.6550, L500.4050, L100.0100, L501.2300, L3100.2300, L501.5200, L503.6030 #### [facility] [address] [place], [place], [id number] (205) Cholesterol in VLDL [Mass/Vol] 45 mg/dL High 5-40 [facility] Comment on above: Performed By: #### L 100.9950, L503.6550, L500.4050, L100.0100, L501.2300, L3100.2300, L501.5200, L503.6030 #### [facility] [address] [place], [place], [id number] ([phone]) Triglyceride [Mass/Vol] 224 mg/dL High [facility] Comment on above: Result Comment: The drugs N-Acetylcysteine and Metamizole may falsely depress this assay. Serum Triglycerides Reference Interval Normal <150 mg/dL Borderline high 150 - 199 mg/dL High 200 - 499 mg/dL Very High > or = 500 mg/dL Performed By: #### L 100.9950, L503.6550, L500.4050, L100.0100, L501.2300, L3100.2300, L501.5200, L503.6030 #### [facility] [address] [place], [place], [id number] (233) Low density lipoprotein (LDL ) cholesterol measurementOrdered By: Antoni Slaughter on 08-04-2024 Cholesterol in LDL [Mass/Vol] 149 mg/dL High 0-130 [facility] Potassium measurementOrdered By: Antoni Slaughter on 08-04-2024 Potassium [Moles/Vol] 4.0 mmol/L 3.5-5.1 [facility] Serum anion gap measurementO rdered By: Antoni Slaughter on 08-04-2024 Anion gap [Moles/Vol] 5 mmol/L 5-15 [facility] Serum globulin measurementOr dered By: Antoni Slaughter on 08-04-2024 Globulin (S) [Mass/Vol] 3.5 g/dL 2.2-4.2 [facility] Serum or plasma alanine zhu otransferase (ALT) measurementOrdered By: Antoni Slaughter on 08-04-2024 ALT [Catalytic activity/Vol] 20 U/L 13-56 [facility] Serum or plasma albumin sourav urement (mass/volume)Ordered By: Antoni Slaughter on 08-04-2024 Albumin [Mass/Vol] 3.7 g/dL 3.2-5.0 [facility] Serum or plasma alkaline omid sphatase measurementOrdered By: Antoni Slaughtre on 08-04-2024 ALP [Catalytic activity/Vol] 115 U/L 45-117 [facility] Serum or plasma calcium sourav urement (mass/volume)Ordered By: Antoni Slaughter on 08-04-2024 Calcium [Mass/Vol] 9.5 mg/dL 8.5-10.1 [facility] Serum or plasma cholesterol measurement (mass/volume)Ordered By: Antoni Slaughter on 08-04-2024 Cholesterol [Mass/Vol] 229 mg/dL High <200 [facility] Comment on above: <200 mg/dL Desirable 200-240 mg/dL Borderline >240 mg/dL High Risk Serum or plasma creatinine m easurement (mass/volume)Ordered By: Antoni Slaughter on 08-04-2024 Creatinine [Mass/Vol] 0.93 mg/dL 0.55-1.02 [facility] Comment on above: The validity of the calculated GFR & GFRAA in patients over 70 years has not been determined. Clinical correlation is essential. Serum or plasma thyroid stim ulating hormone (TSH) measurement (units/volume)Ordered By: Antoni Slaughter on 08-04-2024 TSH Qn 4.790 uIU/mL High 0.358-3.740 [facility] Serum or plasma urea nitroge n measurement (mass/volume)Ordered By: Antoni Slaughter on 08-04-2024 Urea nitrogen [Mass/Vol] 20 mg/dL High 7-18 [facility] Sodium levelOrdered By: Brad Slaughter on 08-04-2024 Sodium [Moles/Vol] 140 mmol/L 136-145 [facility] TSH QnOrdered By: Antoni Slaughter on 08-04-2024 Thyroid Stimulating Hormone (TSH) 4.790 uIU/mL High 0.358-3.740 [facility] Thyroid Stim Hormone (TSH)on 08-04-2024 TSH 4.790 uIU/mL High 0.358-3.740 [facility] Comment on above: Performed By: #### L 100.9950, L503.6550, L500.4050, L100.0100, L501.2300, L3100.2300, L501.5200, L503.6030 #### [facility] [address] [place], [place], [id number] Total proteinOrdered By: Juwan Slaughter on 08-04-2024 Protein [Mass/Vol] 7.2 g/dL 6.4-8.2 [facility] Triglycerides measurementOrd ered By: Antoni Slaughter on 08-04-2024 Triglyceride [Mass/Vol] 224 mg/dL High <199 [facility] Comment on above: The drugs N-Acetylcy steine and Metamizole may falsely depress this assay.Serum Triglycerides Reference Interval Normal <150 mg/dL Borderline high 150 - 199 mg/dL High 200 - 499 mg/dL Very High > or = 500 mg/dL Very low density lipoprotein (VLDL) cholesterol measurementOrdered By: Antoni Slaughter on 08-04-2024 Very low density lipoprotein (VLDL) cholesterol measurement 45 mg/dL High 5-40 [facility] VLDL Cholesterol 45 mg/dL High 5-40 [facility] CNOVon 08-01-2024 CNOV Office Visit (AGGENS 3) -- TRUDY CALLE ([id number]) 1960 F Date Time Provider Department 08/01/24 10:30 AM VIBHA FLORES3 During your visit today, we recorded the following information about you: Pulse Blood pressure Weight Height 71/minute 132/85 95.3 kg 1.702 m Vibha Flores MD 08/01/2024 12:43 PM Signed Vibha Flores M.D. Colon AND Rectal Surgery [address] [facility], [address] [place] [phone] CC: rectosigmoid cancer HPI: Trudy Calle is [...] This office note has been created using [employer], a speech recognition software program, and may contain errors (more content not included)... Normal [facility] CNOVon 07-18-2024 CNOV Office Visit (AGGENS 3) -- TRUDY CALLE ([id number]) 1960 F Date Time Provider Department 07/18/24 8:30 AM VIBHA FLORES3 During your visit today, we recorded the following information about you: Pulse Blood pressure Weight Height 76/minute 112/73 95.2 kg 1.702 m Vibha Flores MD 07/18/2024 12:37 PM Signed Vibha Flores M.D. Colon AND Rectal Surgery [address] [facility], [address] [place] [id number] CC: rectal cancer HPI: Trudy Calle is a 63 year old White female who was referred by MERON Page with [facility] for newly diagnosed rectal adenocarcinoma. My [...] Patient was examined in knee-chest with a hotel maintenance worker present. Externally there were small skin tags. [...] for staging of her rectal cancer at [place]. We will call to obtain the results of her imaging. We will also get the images uploaded to our system. Patient also states that she had a CEA drawn at [place] as well. We also will request the [...] Referrals placed (more content not included)... Normal [facility] CT Chest, Abd, Pel w/Contras ton 07-17-2024 CT Chest, Abd, Pel w/Contrast [facility] Services [address] [place] [address] CT Chest, Abd, Pel w/Contrast MR#: [id number] Acct: [id number] Name: TRUDY CALLE Rep #: [id number] : 1960 F 63 From: Gideon Lawrence MD PCP: Dr. Antoni Slaughter MD Status: REG CLI Study: CT Chest, Abd, Pel w/Contrast Date of Exam: Exam# [id number] Ordering Dr: Sofia Cuadra EXAM: CT Chest, [...] pulmonary nodules or osseous lesions. Reading Location: [facility] CC: Dr. Antoni Slaughter MD; MERON Page Cone Picker: Signed Normal [facility] Pelvis W/WO Contraston 07-04 Pelvis W/WO Contrast [facility] [address] [place], [place] [address] Pelvis W/WO Contrast MR#: [id number] Acct: [id number] Name: TRUDY CALLE Rep #: [id number] : 1960 F 63 From: Lebron horowitz MD PCP: Dr. Antoni Slaughter MD Status: REG CLI Study: Pelvis W/WO Contrast Date of Exam: 07/04/24 Exam# [id number] Ordering Dr: Dayton Lewis MD [id number] STUDY: MR PELVIS WITHOUT CONTRAST REASON FOR [...] Strictly speaking TNM staging, such as the [place] Joint Committee on Cancer (AJCC) 8th edition, [...] Titus MD (more content not included)... Normal [facility] Carcinoembryonic Antigenon 0 07-03-2024 CEA 11.3 ng/mL High 0.0-4.7 [facility] Comment on above: Order Comment: PT NO T FASTING DR SLAUGHTER ORDERED [facility] OTHER LABS WERE FOR DR LEWIS Result Comment: Nons mokers <3.9 Smokers <5.6 [facility] Electrochemiluminescence Immunoassay (ECLIA) Values obtained with different assay methods or kits cannot be used interchangeably. Results cannot be interpreted as absolute evidence of the presence or absence of malignant disease. Performed at: [place] [address] Screener And Blender: Osei Busch PhD, Phone: [phone] Performed By: #### L 100.9950, L503.6550, L500.4050, L100.0100, L501.2300, L3100.2300, L501.5200, L503.6030 #### [facility] [place], [address] Absolute neutrophil countOrd ered By: Dayton Lewis on 07-02-2024 Neutrophils (Bld) [#/Vol] 5.4 10*3/uL 2.0-7.7 [facility] Albumin to globulin ratioOrd ered By: Dayton Lewis on 07-02-2024 Albumin/Globulin [Mass ratio] 1.0 {ratio} 0.9-2.4 [facility] Basophil percentageOrdered B y: Dayton Lewis on 07-02-2024 Basophils/100 WBC (Bld) 1.2 % High 0-1 [facility] Bilirubin, totalOrdered By: Dayton Lewis on 07-02-2024 Bilirubin [Mass/Vol] 0.50 mg/dL 0.20-1.00 [facility] Comment on above: For patients on eltr ombopag therapy, use of Dimension Mcalpin TBIL is not recommended. Blood urea nitrogen (BUN)/cr eatinine ratioOrdered By: Dayton Lewis on 07-02-2024 Urea nitrogen/Creatinine [Mass ratio] 17.1 mg/mg 10-20 [facility] CBC W/Diff, Automatedon 06-12 Absolute Lymph 1.58 X10 3/uL Normal 0.83-4.51 [facility] Comment on above: Order Comment: PT NO T FASTING DR SLAUGHTER ORDERED [facility] OTHER LABS WERE FOR DR LEWIS Performed By: #### L 100.9950, L503.6550, L500.4050, L100.0100, L501.2300, L3100.2300, L501.5200, L503.6030 #### [facility] [address] [place], [address] Absolute Neut 5.4 X10 3/uL Normal 2.0-7.7 [facility] Comment on above: Order Comment: PT NO T FASTING DR SLAUGHTER ORDERED [facility] OTHER LABS WERE FOR DR LEWIS Performed By: #### L 100.9950, L503.6550, L500.4050, L100.0100, L501.2300, L3100.2300, L501.5200, L503.6030 #### [facility] [address] [place], [address] Basophils/100 WBC (Bld) 1.2 % High 0-1 [facility] Comment on above: Order Comment: PT NO T FASTING DR SLAUGHTER ORDERED [facility] OTHER LABS WERE FOR DR LEWIS Performed By: #### L 100.9950, L503.6550, L500.4050, L100.0100, L501.2300, L3100.2300, L501.5200, L503.6030 #### [facility] [address] [place], [address] Eosinophils/100 WBC (Bld) 6.4 % High 0-5 [facility] Comment on above: Order Comment: PT NO T FASTING DR SLAUGHTER ORDERED [facility] OTHER LABS WERE FOR DR LEWIS Performed By: #### L 100.9950, L503.6550, L500.4050, L100.0100, L501.2300, L3100.2300, L501.5200, L503.6030 #### [facility] [address] [place], [address] Erythrocyte distribution width (RBC) [Ratio] 14.5 % Normal 11.6-14.6 [facility] Comment on above: Order Comment: PT NO T FASTING DR SLAUGHTER ORDERED [facility] OTHER LABS WERE FOR DR LEWIS Performed By: #### L 100.9950, L503.6550, L500.4050, L100.0100, L501.2300, L3100.2300, L501.5200, L503.6030 #### [facility] [address] [place], [place], [phone] Hematocrit (Bld) [Volume fraction] 38.1 % Normal 37-47 [facility] Comment on above: Order Comment: PT NO T FASTING DR SLAUGHTER ORDERED [facility] OTHER LABS WERE FOR DR LEWIS Performed By: #### L 100.9950, L503.6550, L500.4050, L100.0100, L501.2300, L3100.2300, L501.5200, L503.6030 #### [facility] [address] [place], [place], [phone] Hemoglobin (Bld) [Mass/Vol] 12.5 g/dL Normal 12.0-15.0 [facility] Comment on above: Order Comment: PT NO T FASTING DR SLAUGHTER ORDERED [facility] OTHER LABS WERE FOR DR LEWIS Performed By: #### L 100.9950, L503.6550, L500.4050, L100.0100, L501.2300, L3100.2300, L501.5200, L503.6030 #### [facility] [address] [place], [address] IG% 0.400 Normal 0.0-0.9 [facility] Comment on above: Order Comment: PT NO T FASTING DR SLAUGHTER ORDERED [facility] OTHER LABS WERE FOR DR LEWIS Result Comment: IG% - Immature Granulocytes (promyelocytes, myelocytes and metamyelocytes) > 1% indicates that a LEFT SHIFT is Present. Performed By: #### L 100.9950, L503.6550, L500.4050, L100.0100, L501.2300, L3100.2300, L501.5200, L503.6030 #### [facility] [address] [facility] [place], [address] Lymphocytes/100 WBC (Bld) 19.2 % Normal 19-41 [facility] Comment on above: Order Comment: PT NO T FASTING DR SLAUGHTER ORDERED [facility] OTHER LABS WERE FOR DR LEWIS Performed By: #### L 100.9950, L503.6550, L500.4050, L100.0100, L501.2300, L3100.2300, L501.5200, L503.6030 #### [facility] [address] [facility] [place], [address] MCH (RBC) [Entitic mass] 30.3 pg Normal 27.0-32.0 [facility] Comment on above: Order Comment: PT NO T FASTING DR SLAUGHTER ORDERED [facility] OTHER LABS WERE FOR DR LEWIS Performed By: #### L 100.9950, L503.6550, L500.4050, L100.0100, L501.2300, L3100.2300, L501.5200, L503.6030 #### [facility] [address] [place], [address] MCHC (RBC) [Mass/Vol] 32.8 g/dL Normal 32-36 [facility] Comment on above: Order Comment: PT NO T FASTING DR SLAUGHTER ORDERED [facility] OTHER LABS WERE FOR DR LEWIS Performed By: #### L 100.9950, L503.6550, L500.4050, L100.0100, L501.2300, L3100.2300, L501.5200, L503.6030 #### [facility] [address] [place], [address] MCV (RBC) [Entitic vol] 92.5 fL Normal 81-99 [facility] Comment on above: Order Comment: PT NO T FASTING DR SLAUGHTER ORDERED [facility] OTHER LABS WERE FOR DR LEWIS Performed By: #### L 100.9950, L503.6550, L500.4050, L100.0100, L501.2300, L3100.2300, L501.5200, L503.6030 #### [facility] [address] [place], [address] Monocytes/100 WBC (Bld) 7.5 % Normal 0-10 [facility] Comment on above: Order Comment: PT NO T FASTING DR SLAUGHTER ORDERED [facility] OTHER LABS WERE FOR DR LEWIS Performed By: #### L 100.9950, L503.6550, L500.4050, L100.0100, L501.2300, L3100.2300, L501.5200, L503.6030 #### [facility] [address] [place], [address] Neutrophils/100 WBC (Bld) 65.3 % Normal 47-70 [facility] Comment on above: Order Comment: PT NO T FASTING DR SLAUGHTER ORDERED [facility] OTHER LABS WERE FOR DR LEWIS Performed By: #### L 100.9950, L503.6550, L500.4050, L100.0100, L501.2300, L3100.2300, L501.5200, L503.6030 #### [facility] [address] [place], [address] Nucleated RBC (Bld) [#/Vol] 0 10*3/uL Normal 0-5 [facility] Comment on above: Order Comment: PT NO T FASTING DR SLAUGHTER ORDERED [facility] OTHER LABS WERE FOR DR LEWIS Performed By: #### L 100.9950, L503.6550, L500.4050, L100.0100, L501.2300, L3100.2300, L501.5200, L503.6030 #### [facility] [address] [place], [address] Platelet mean volume (Bld) [Entitic vol] 11.2 fL Normal 6.2-12.0 [facility] Comment on above: Order Comment: PT NO T FASTING DR SLAUGHTER ORDERED [facility] OTHER LABS WERE FOR DR LEWIS Performed By: #### L 100.9950, L503.6550, L500.4050, L100.0100, L501.2300, L3100.2300, L501.5200, L503.6030 #### [facility] [address] [place], [address] Platelets (Bld) [#/Vol] 242 10*3/uL Normal 150-450 [facility] Comment on above: Order Comment: PT NO T FASTING DR SLAUGHTER ORDERED [facility] OTHER LABS WERE FOR DR LEWIS Performed By: #### L 100.9950, L503.6550, L500.4050, L100.0100, L501.2300, L3100.2300, L501.5200, L503.6030 #### [facility] [address] [place], [address] RBC (Bld) [#/Vol] 4.12 10*6/uL Low 4.2-5.4 [facility] Comment on above: Order Comment: PT NO T FASTING DR SLAUGHTER ORDERED [facility] OTHER LABS WERE FOR DR LEWIS Performed By: #### L 100.9950, L503.6550, L500.4050, L100.0100, L501.2300, L3100.2300, L501.5200, L503.6030 #### [facility] [address] [place], [address] RDW SD 49.3 fl High 35.1-43.9 [facility] Comment on above: Order Comment: PT NO T FASTING DR SLAUGHTER ORDERED [facility] OTHER LABS WERE FOR DR LEWIS Performed By: #### L 100.9950, L503.6550, L500.4050, L100.0100, L501.2300, L3100.2300, L501.5200, L503.6030 #### [facility] [address] [place], [place], [phone] WBC (Bld) [#/Vol] 8.2 10*3/uL Normal 4.4-11.0 [facility] Comment on above: Order Comment: PT NO T FASTING DR SLAUGHTER ORDERED [facility] OTHER LABS WERE FOR DR LEWIS Performed By: #### L 100.9950, L503.6550, L500.4050, L100.0100, L501.2300, L3100.2300, L501.5200, L503.6030 #### [facility] [address] [facility] [place], [place], [phone] Carbon dioxide measurementOr dered By: Dayton Lewis on 07-02-2024 CO2 [Moles/Vol] 27.0 mmol/L 21.0-32.0 [facility] Chloride measurementOrdered By: Dayton Lewis on 07-02-2024 Chloride [Moles/Vol] 106 mmol/L 98-107 [facility] Comprehensive Metabolic Prof ilon 07-02-2024 Albumin [Mass/Vol] 3.6 g/dL Normal 3.2-5.0 [facility] Comment on above: Order Comment: PT NO T FASTING DR SLAUGHTER ORDERED [facility] OTHER LABS WERE FOR DR REGAN Performed By: #### L 100.9950, L503.6550, L500.4050, L100.0100, L501.2300, L3100.2300, L501.5200, L503.6030 #### [facility] [address] [place], [address] Albumin/Globulin [Mass ratio] 1.0 {ratio} Normal 0.9-2.4 [facility] Comment on above: Order Comment: PT NO T FASTING DR SLAUGHTER ORDERED [facility] OTHER LABS WERE FOR DR REGAN Performed By: #### L 100.9950, L503.6550, L500.4050, L100.0100, L501.2300, L3100.2300, L501.5200, L503.6030 #### [facility] [address] [place], [address] ALK P 112 U/L Normal 45-117 [facility] Comment on above: Order Comment: PT NO T FASTING DR SLAUGHTER ORDERED [facility] OTHER LABS WERE FOR DR REGAN Performed By: #### L 100.9950, L503.6550, L500.4050, L100.0100, L501.2300, L3100.2300, L501.5200, L503.6030 #### [facility] [address] [place], [place], [id number] ALT [Catalytic activity/Vol] 20 U/L Normal 13-56 [facility] Comment on above: Order Comment: PT NO T FASTING DR SLAUGHTER ORDERED [facility] OTHER LABS WERE FOR DR REGAN Performed By: #### L 100.9950, L503.6550, L500.4050, L100.0100, L501.2300, L3100.2300, L501.5200, L503.6030 #### [facility] [address] [place], [address] AST [Catalytic activity/Vol] 9 U/L Low 15-37 [facility] Comment on above: Order Comment: PT NO T FASTING DR SLAUGHTER ORDERED [facility] OTHER LABS WERE FOR DR REGAN Performed By: #### L 100.9950, L503.6550, L500.4050, L100.0100, L501.2300, L3100.2300, L501.5200, L503.6030 #### [facility] [address] [place], [address] Bilirubin [Mass/Vol] 0.50 mg/dL Normal 0.20-1.00 [facility] Comment on above: Order Comment: PT NO T FASTING DR SLAUGHTER ORDERED [facility] OTHER LABS WERE FOR DR REGAN Result Comment: For patients on eltrombopag therapy, use of Dimension Mcalpin TBIL is not recommended. Performed By: #### L 100.9950, L503.6550, L500.4050, L100.0100, L501.2300, L3100.2300, L501.5200, L503.6030 #### [facility] [address] [place], [address] BUN/CRE 17.1 RATIO Normal 10-20 [facility] Comment on above: Order Comment: PT NO T FASTING DR SLAUGHTER ORDERED [facility] OTHER LABS WERE FOR DR REGAN Performed By: #### L 100.9950, L503.6550, L500.4050, L100.0100, L501.2300, L3100.2300, L501.5200, L503.6030 #### [facility] [address] [place], [address] CA,Total 9.3 mg/dL Normal 8.5-10.1 [facility] Comment on above: Order Comment: PT NO T FASTING DR SLAUGHTER ORDERED [facility] OTHER LABS WERE FOR DR REGAN Performed By: #### L 100.9950, L503.6550, L500.4050, L100.0100, L501.2300, L3100.2300, L501.5200, L503.6030 #### [facility] [address] [place], [address] Chloride [Moles/Vol] 106 mmol/L Normal 98-107 [facility] Comment on above: Order Comment: PT NO T FASTING DR SLAUGHTER ORDERED [facility] OTHER LABS WERE FOR DR REGAN Performed By: #### L 100.9950, L503.6550, L500.4050, L100.0100, L501.2300, L3100.2300, L501.5200, L503.6030 #### [facility] [address] [place], [address] CO2 [Moles/Vol] 27.0 mmol/L Normal 21.0-32.0 [facility] Comment on above: Order Comment: PT NO T FASTING DR SLAUGHTER ORDERED [facility] OTHER LABS WERE FOR DR REGAN Performed By: #### L 100.9950, L503.6550, L500.4050, L100.0100, L501.2300, L3100.2300, L501.5200, L503.6030 #### [facility] [address] [place], [address] Creatinine [Mass/Vol] 0.94 mg/dL Normal 0.55-1.02 [facility] Comment on above: Order Comment: PT NO T FASTING DR SLAUGHTER ORDERED [facility] OTHER LABS WERE FOR DR REGAN Result Comment: The validity of the calculated GFR GFRAA in patients over 70 years has not been determined. Clinical correlation is essential. Performed By: #### L 100.9950, L503.6550, L500.4050, L100.0100, L501.2300, L3100.2300, L501.5200, L503.6030 #### [facility] [address] [place], [address] EST GFR - AA 77 mL/min Normal >60 [facility] Comment on above: Order Comment: PT NO T FASTING DR SLAUGHTER ORDERED [facility] OTHER LABS WERE FOR JASS Result Comment: Afri can [place] GFR Calc Performed By: #### L 100.9950, L503.6550, L500.4050, L100.0100, L501.2300, L3100.2300, L501.5200, L503.6030 #### [facility] [address] [place], [place], [phone] Normal 5-15 [facility] Comment on above: Order Comment: PT NO T FASTING DR SLAUGHTER ORDERED [facility] OTHER LABS WERE FOR DR REGAN Performed By: #### L 100.9950, L503.6550, L500.4050, L100.0100, L501.2300, L3100.2300, L501.5200, L503.6030 #### [facility] [address] [place], [place], [id number] GFR/1.73 sq M.predicted among non-blacks MDRD (S/P/Bld) [Vol rate/Area] 64 mL/min/{1.73_m2} Normal >60 [facility] Comment on above: Order Comment: PT NO T FASTING DR SLAUGHTER ORDERED [facility] OTHER LABS WERE FOR DR REGAN Result Comment: Non- GFR Calc Performed By: #### L 100.9950, L503.6550, L500.4050, L100.0100, L501.2300, L3100.2300, L501.5200, L503.6030 #### [facility] [address] [place], [place], [id number] Globulin (S) [Mass/Vol] 3.7 g/dL Normal 2.2-4.2 [facility] Comment on above: Order Comment: PT NO T FASTING DR SLAUGHTER ORDERED [facility] OTHER LABS WERE FOR DR REGAN Performed By: #### L 100.9950, L503.6550, L500.4050, L100.0100, L501.2300, L3100.2300, L501.5200, L503.6030 #### [facility] [address] [facility] [place], [address] Glucose [Mass/Vol] 93 mg/dL Normal 74-106 [facility] Comment on above: Order Comment: PT NO T FASTING DR SLAUGHTER ORDERED [facility] OTHER LABS WERE FOR DR REGAN Performed By: #### L 100.9950, L503.6550, L500.4050, L100.0100, L501.2300, L3100.2300, L501.5200, L503.6030 #### [facility] [address] [place], [address] Potassium [Moles/Vol] 3.7 mmol/L Normal 3.5-5.1 [facility] Comment on above: Order Comment: PT NO T FASTING DR SLAUGHTER ORDERED [facility] OTHER LABS WERE FOR DR REGAN Performed By: #### L 100.9950, L503.6550, L500.4050, L100.0100, L501.2300, L3100.2300, L501.5200, L503.6030 #### [facility] [address] [place], [address] Sodium [Moles/Vol] 140 mmol/L Normal 136-145 [facility] Comment on above: Order Comment: PT NO T FASTING DR SLAUGHTER ORDERED [facility] OTHER LABS WERE FOR DR REGAN Performed By: #### L 100.9950, L503.6550, L500.4050, L100.0100, L501.2300, L3100.2300, L501.5200, L503.6030 #### [facility] [address] [place], [address] T PROT 7.3 g/dL Normal 6.4-8.2 [facility] Comment on above: Order Comment: PT NO T FASTING DR SLAUGHTER ORDERED [facility] OTHER LABS WERE FOR DR REGAN Performed By: #### L 100.9950, L503.6550, L500.4050, L100.0100, L501.2300, L3100.2300, L501.5200, L503.6030 #### [facility] [address] [place], [address] Urea nitrogen [Mass/Vol] 16 mg/dL Normal 7-18 [facility] Comment on above: Order Comment: PT NO T FASTING DR SLAUGHTER ORDERED [facility] OTHER LABS WERE FOR DR REGAN Performed By: #### L 100.9950, L503.6550, L500.4050, L100.0100, L501.2300, L3100.2300, L501.5200, L503.6030 #### [facility] [address] [place], [place], [id number] Eosinophil percentageOrdered By: Dayton Lewis on 07-02-2024 Eosinophils/100 WBC (Bld) 6.4 % High 0-5 [facility] Erythrocyte distribution wid th ratioOrdered By: Dayton Joshua on 07-02-2024 Erythrocyte distribution width (RBC) [Ratio] 14.5 % 11.6-14.6 [facility] Erythrocyte distribution wid th standard deviationOrdered By: Dayton Lewis on 07-02-2024 Erythrocyte distribution width (RBC) [Entitic vol] 49.3 fL High 35.1-43.9 [facility] Estimated glomerular filtrat ion rate (GFR) AmericanOrdered By: Dayton Lewis on 07-02-2024 Estimated GFR (MDRD) Amer 77 mL/min >60 [facility] Comment on above: GFR Calc Ferritinon 07-02-2024 Ferritin [Mass/Vol] 113 ng/mL Normal - [facility] Comment on above: Order Comment: PT NO T FASTING DR SLAUGHTER ORDERED TSHALL OTHER LABS WERE FOR DR REGAN Performed By: #### L 100.9950, L503.6550, L500.4050, L100.0100, L501.2300, L3100.2300, L501.5200, L503.6030 #### [facility] [address] [place], [place], [id number] Ferritin measurementOrdered By: Dayton Lewis on 07-02-2024 Ferritin [Mass/Vol] 113 ng/mL 252 [facility] Glomerular filtration rate ( GFR) estimationOrdered By: Dayton Lewis on 07-02-2024 Estimated GFR (MDRD) Non-Af Amer 64 mL/min >60 [facility] Comment on above: Non- GFR Calc Glucose measurementOrdered B y: Dayton Lewis on 07-02-2024 Glucose [Mass/Vol] 93 mg/dL 74-106 [facility] Hematocrit Auto (Bld) [Volum e fraction]Ordered By: Dayton Lewis on 07-02-2024 Hematocrit (Bld) [Volume fraction] 38.1 % 37-47 [facility] Hemoglobin (Reticulocytes) [ Entitic mass]Ordered By: Dayton Lewis on 07-02-2024 Reticulocyte Hemoglobin Equivalent 34.4 pg 30-35 [facility] Hemoglobin measurementOrdere d By: Dayton Lewis on 07-02-2024 Hemoglobin (Bld) [Mass/Vol] 12.5 g/dL 12.0-15.0 [facility] Immature granulocytes/100 WB C Auto (Bld)Ordered By: Dayton Lewis on 07-02-2024 Immature granulocytes/100 WBC (Bld) 0.400 % 0.0-0.9 [facility] Comment on above: IG% - Immature Granu locytes (promyelocytes, myelocytes and metamyelocytes) > 1% indicates that a LEFT SHIFT is Present. Immature reticulocyte fracti onOrdered By: Dayton Lewis on 07-02-2024 Immature Reticulocyte Fraction 10.80 % 3.00-15.90 [facility] Iron (Unsp spec) [Mass/Mass] Ordered By: Dayton Lewis on 07-02-2024 Iron [Mass/Vol] 54 ug/dL 50-170 [facility] Iron saturation [Mass fracti on]Ordered By: Dayton Lewis on 07-02-2024 Iron Saturation 18.6 % 15.0-55.0 [facility] Iron+Iron Binding Capacityon 07-02-2024 Iron [Mass/Vol] 54 ug/dL Normal 50-170 [facility] Comment on above: Order Comment: PT NO T FASTING DR SLAUGHTER ORDERED [place] OTHER LABS WERE FOR DR REGAN Performed By: #### L 100.9950, L503.6550, L500.4050, L100.0100, L501.2300, L3100.2300, L501.5200, L503.6030 #### [facility] [address] [place], [address] IRON SATURATION 18.6 Normal 15.0-55.0 [facility] Comment on above: Order Comment: PT NO T FASTING DR SLAUGHTER ORDERED [facility] OTHER LABS WERE FOR DR REGAN Performed By: #### L 100.9950, L503.6550, L500.4050, L100.0100, L501.2300, L3100.2300, L501.5200, L503.6030 #### [facility] [address] [place], [address] TIBC 291 ug/dL Normal 250-450 [facility] Comment on above: Order Comment: PT NO T FASTING DR SLAUGHTER ORDERED [place] OTHER LABS WERE FOR DR REGAN Performed By: #### L 100.9950, L503.6550, L500.4050, L100.0100, L501.2300, L3100.2300, L501.5200, L503.6030 #### [facility] [address] [place], [place], [address] LDHon 07-02-2024 LDH 139 U/L Normal 84-246 [facility] Comment on above: Order Comment: PT NO T FASTING DR SLAUGHTER ORDERED [facility] OTHER LABS WERE FOR DR REGAN Performed By: #### L 100.9950, L503.6550, L500.4050, L100.0100, L501.2300, L3100.2300, L501.5200, L503.6030 #### [facility] [address] [place], [place], [address] Laboratory - Chemistry and C hemistry - challengeOrdered By: Dayton Lewis on 07-02-2024 AST [Catalytic activity/Vol] 9 U/L Low 15-37 [facility] Lactate dehydrogenase (LDH) measurementOrdered By: Dayton Lewis on 07-02-2024 LDH [Catalytic activity/Vol] 139 U/L 84-246 [facility] Lymphocytes Auto (Unsp spec) [#/Vol]Ordered By: Dayton Lewis on 07-02-2024 Lymphocytes (Bld) [#/Vol] 1.58 10*3/uL 0.83-4.51 [facility] Lymphocytes/100 WBC Auto (Un sp spec)Ordered By: Dayton Lewis on 07-02-2024 Lymphocytes/100 WBC (Bld) 19.2 % 19-41 [facility] MCV (mean corpuscular volume ) determinationOrdered By: Dayton Lewis on 07-02-2024 MCV (RBC) [Entitic vol] 92.5 fL 81-99 [facility] Mean corpuscular hemoglobin (MCH) determinationOrdered By: Dayton Lewis on 07-02-2024 MCH (RBC) [Entitic mass] 30.3 pg 27.0-32.0 [facility] Mean corpuscular hemoglobin concentration (MCHC) determinationOrdered By: Dayton Lewis on 07-02-2024 MCHC (RBC) [Mass/Vol] 32.8 g/dL 32-36 [facility] Mean platelet volume determi nationOrdered By: Dayton Lewis on 07-02-2024 Platelet mean volume (Bld) [Entitic vol] 11.2 fL 6.2-12.0 [facility] Monocyte percentageOrdered B y: Dayton Lewis on 07-02-2024 Monocytes/100 WBC (Bld) 7.5 % 0-10 [facility] Neutrophil percentageOrdered By: Dayton Lewis on 07-02-2024 Neutrophils/100 WBC (Bld) 65.3 % 47-70 [facility] Nucleated red blood cell per centageOrdered By: Dayton Lewis on 07-02-2024 Nucleated RBC/100 WBC (Bld) [Ratio] 0 % 0-5 [facility] Oncology Visit Reporton 06-12 Oncology Visit Report [facility] [address] [place] [address] OFFICE VISIT Date of Service: 07/02/24 0959 MR#: [id number] Acct: [id number] Name: TRUDY CALLE Rep #: [id number] : 1960 From: Dayton Lewis MD Age/Sex: 63/F Location: [facility] Status: Signed HPI Subjective Date of Service [...] inspection, n (more content not included)... Normal [facility] Platelet countOrdered By: Chelsea Lewis on 07-02-2024 Platelets (Bld) [#/Vol] 242 10*3/uL 150-450 [facility] Potassium measurementOrdered By: Dayton Lewis on 07-02-2024 Potassium [Moles/Vol] 3.7 mmol/L 3.5-5.1 [facility] RBC Auto (Bld) [#/Vol]Ordere d By: Dayton Lewis on 07-02-2024 RBC (Bld) [#/Vol] 4.12 10*6/uL Low 4.2-5.4 [facility] Retic Panelon 07-02-2024 IM RET FRACTION 10.80 Normal 3.00-15.90 [facility] Comment on above: Order Comment: PT NO T FASTING DR SLAUGHTER ORDERED [facility] OTHER LABS WERE FOR DR LEWIS Performed By: #### L 100.9950, L503.6550, L500.4050, L100.0100, L501.2300, L3100.2300, L501.5200, L503.6030 #### [facility] [address] [place], [place], [address] RET-HE 34.4 pg Normal 30-35 [facility] Comment on above: Order Comment: PT NO T FASTING DR SLAUGHTER ORDERED [facility] OTHER LABS WERE FOR DR LEWIS Performed By: #### L 100.9950, L503.6550, L500.4050, L100.0100, L501.2300, L3100.2300, L501.5200, L503.6030 #### [facility] [address] [place], [place], [address] Retic Count 2.01 High 0.5-1.5 [facility] Comment on above: Order Comment: PT NO T FASTING DR SLAUGHTER ORDERED [facility] OTHER LABS WERE FOR DR LEWIS Performed By: #### L 100.9950, L503.6550, L500.4050, L100.0100, L501.2300, L3100.2300, L501.5200, L503.6030 #### [facility] [address] [place], [address] Reticulocytes Auto (Bld) [#/ Vol]Ordered By: Dayton Lewis on 07-02-2024 Reticulocyte Count 2.01 % High 0.5-1.5 [facility] Serum anion gap measurementO rdered By: Dayton Lewis on 07-02-2024 Anion gap [Moles/Vol] 7 mmol/L 5-15 [facility] Serum globulin measurementOr dered By: Dayton Lewis on 07-02-2024 Globulin (S) [Mass/Vol] 3.7 g/dL 2.2-4.2 [facility] Serum or plasma alanine zhu otransferase (ALT) measurementOrdered By: Dayton Lewis on 07-02-2024 ALT [Catalytic activity/Vol] 20 U/L 13-56 [facility] Serum or plasma albumin sourav urement (mass/volume)Ordered By: Dayton Lewis on 07-02-2024 Albumin [Mass/Vol] 3.6 g/dL 3.2-5.0 [facility] Serum or plasma alkaline omid sphatase measurementOrdered By: Dayton Lewis on 07-02-2024 ALP [Catalytic activity/Vol] 112 U/L 45-117 [facility] Serum or plasma calcium sourav urement (mass/volume)Ordered By: Dayton Lewis on 07-02-2024 Calcium [Mass/Vol] 9.3 mg/dL 8.5-10.1 [facility] Serum or plasma creatinine m easurement (mass/volume)Ordered By: Dayton Lewis on 07-02-2024 Creatinine [Mass/Vol] 0.94 mg/dL 0.55-1.02 [facility] Comment on above: The validity of the calculated GFR & GFRAA in patients over 70 years has not been determined. Clinical correlation is essential. Serum or plasma thyroid stim ulating hormone (TSH) measurement (units/volume)Ordered By: Antoni Slaughter on 07-02-2024 TSH Qn 11.500 uIU/mL High 0.358-3.740 [facility] Serum or plasma urea nitroge n measurement (mass/volume)Ordered By: Dayton Lewis on 07-02-2024 Urea nitrogen [Mass/Vol] 16 mg/dL 7-18 [facility] Sodium levelOrdered By: Allen Lewis on 07-02-2024 Sodium [Moles/Vol] 140 mmol/L 136-145 [facility] TIBCOrdered By: Dayton Lewis on 07-02-2024 Total Iron Binding Capacity 291 ug/dL 250-450 [facility] TSH QnOrdered By: Antoni Slaughter on 07-02-2024 Thyroid Stimulating Hormone (TSH) 11.500 uIU/mL High 0.358-3.740 [facility] Thyroid Stim Hormone (TSH)on 07-02-2024 TSH 11.500 uIU/mL High 0.358-3.740 [facility] Comment on above: Order Comment: PT NO T FASTING DR SLAUGHTER ORDERED [place] OTHER LABS WERE FOR DR REGAN Performed By: #### L 100.9950, L503.6550, L500.4050, L100.0100, L501.2300, L3100.2300, L501.5200, L503.6030 #### [facility] [address] [facility] [place], [address] Total proteinOrdered By: Eder Lewis on 07-02-2024 Protein [Mass/Vol] 7.3 g/dL 6.4-8.2 [facility] White blood cell (WBC) count Ordered By: Dayton Lewis on 07-02-2024 WBC (Bld) [#/Vol] 8.2 10*3/uL 4.4-11.0 [facility] Colonoscopy Reporton 025 Colonoscopy Report [facility] Medical Records Department [address] [place] [address] Colonoscopy Report MR#: [id number] Acct: [id number] Name: TRUDY CALLE Rep #: [id number] : 1960 63 From: Rivera Friend DO PCP: Dr. Antoni Slaughter MD Status:[facility] Patient Name: Trudy Calle Procedure Date: 06/26/2024 [...] for review. Procedure Code(s): --- Professional --- 86944, 52, Colonoscopy, flexible; with biopsy, single or multiple CPT copyright 2021 [employer]. All rights reserved. The codes documented in this report are preliminary and upon invoice coder review may be revised to meet current compliance requirements. Rivera Townsend DO 06/26/2024 11:13:23 AM This report has been signed electronically. Number of Addenda: 0 Note Initiated On: 06/26/2024 10:42 AM 06/26/24 1113 Date Rivera Townsend DO Cosigner Signature: Date (if indicated) CC: Dr. Antoni Slaughter MD; Rivera Townsend DO Date Dictated: 06/26/24 1042 Date Transcribed: Cone Picker: [email or web address] Signed [facility] HER-2-OLINDA (initial)on 2024 HER-2-OLINDA (initial) ------ Patient Age/Sex Location Account Attending Physician TRUDY CALLE 63/F EN [id number] Rivera Townsend DO Specimen: [id number] Received: 06/27/24135 Status: JOHNNY Analia Num: [id number] Spec Type: IMMUNO Subm Dr: Rivera Townsend DO [facility] [place] [address] SPECIMEN INFORMATION: Tissue Source: Sigmoid mass biopsy Clinical Info: Chronic constipation Specimen Number: [id number] CPT code: 05304,20651s6 METHODOLOGY: Deparaffinized sections of prefer/formalin-fixed tissue or [...] MSH2 (25D12) positive MSH6 (44) positive PMS2 (JIM9455) positive Ki-67 (30-9) positive, high P53 (DO-7) positive (missense mutation pattern) Testing for Her2 by IHC if equivocal, recommend testing for Her2 by FISH(remove/not needed) These tests were developed and their performance characteristics determined by [facility]. They may not have been [...] Dr. Gianluca Gamboa MD 06/30/24 1034 Normal [facility] Comment on above: Performed By: #### P HER2 ####[facility] [id number] [facility] [place], [address] MR/POSTOP.John 06-26-2024 MR/POSTOP.PORFIRIO [facility] Medical Records Department [address] [place] [address] Anesthesia Postop Eval I 06/26/24 1107 MR#: [id number] Acct: [id number] Name: TRUDY CALLE Rep #: [id number] : 1960 63 From: Merlin Robert PCP: Dr. Antoni Slaughter MD Status:REG SDC Y Race: C Location: [place] [address] Anesthesia: Postop Eval I Current Vital Signs [...] Merlin Goodwin Signature: Date CC: Signed Normal [facility] MR/[id number] 06-26-2024 MR/POSTOPAN2 [facility] Medical Records Department [address] [place] [address] Anesthesia Postop Eval II 06/26/24 1145 MR#: [id number] Acct: [id number] Name: TRUDY CALLE Rep #: [id number] : 1960 63 From: Kolton Ness MD PCP: Dr. Antoni Slaughter MD [place] [facility] [place]: C Location: [place] [address] Anesthesia Postop Eval I Sum Postop Eval [...] Kolton Goodwin Signature: Date CC: Signed Normal [facility] Surgery Specimen Level Jung 06-26-2024 Surgery Specimen Level IV Patient Age/Sex Location Account Attending Physician TRUDY CALLE 63/F EN [id number] Rivera Townsend DO Specimen: [id number] Received: 06/26/24-1246 Status: JOHNNY Helms Num: [id number] Spec Type: COLON BX Subm Dr: Rivera [...] submitted in one cassette. mr 06/26/2024 TC:0 CPT:00650 Patient Age/Sex Location Account Attending Physician TRUDY CALLE 63/F LIBIA [id number] Rivera Townsend DO Signed (signature on file) Dr. Gianluca Gamboa MD 06/27/24 1437 Normal [facility] Comment on above: Performed By: #### L 100.9950, L503.6550, L500.4050, L100.0100, L501.2300, L3100.2300, L501.5200, L503.6030 #### [facility] [address] [facility] [place], [address] Gastroenterology Visit Repor ton 06-17-2024 Gastroenterology Visit Report [facility] [address] [facility] [place] [address] OFFICE VISIT Date of Service: 06/17/24 MR#: [id number] Acct: [id number] Name: TRUDY CALLE Rep #: [id number] : 1960 Provider: MERON Page Age/Sex: 63/F Location: [facility] Status: Signed Intake Vital Signs 04/30/24 13:52 [...] 06.17.24 Pt here to establish care with [facility] for constipation and occasional bleeding. Denies N/V and abdominal pain. Pt reports she has tried Miralax and OTC stool softeners to help relieve constipation but they only make her feel more bloated. No prior hx of colonoscopy or EGD. [facility] Medical History (Updated 04/30/24 @ 14:18 by [...] to the office today for establishment with [facility]. Pt daniel been struggling with constipation for [...] Appearance: average body habitus and well nourished HENID Head: normal to inspection Ears: hearing grossly [...] Chronic constip (more content not included)... Normal [facility] Internal Medicine Office Vis iton 04-30-2024 Internal Medicine Office Visit [facility] [address] [place] [address] [place] [address] OFFICE VISIT Date of Service: 04/30/24 MR#: [id number] Acct: [id number] Name: TRUDY CALLE Rep #: [id number] : 1960 Provider: Dr. Antoni judge MD Age/Sex: 63/F Location: [facility] Status: Signed Intake Vital Signs 11/01/23 15:38 [...] M FU Chief Complaint: 6 m f/u Category Director Required: No Accompanied by: Self Is patient [...] of hemorrhoids. She denies straining. Tried some dcwd-pkg-hqbixtk medication, does not remember the name but [...] and orien (more content not included)... Normal [facility] Basophil percentageOrdered B y: Gideon Bowman on 08-25-2022 Chloride [Moles/Vol] 106 mmol/L 98-107 [facility] Glucose [Mass/Vol] 101 mg/dL 74-106 [facility] Comment on above: Fasting Glucose resu lt from 100 to 125 mg/dL suggests IMPAIRED HOMEOSTASIS per A.D.A. criteria. Potassium [Moles/Vol] 4.0 mmol/L 3.5-5.1 [facility] Sodium [Moles/Vol] 140 mmol/L 136-145 [facility] Laboratory - Chemistry and C hemistry - challengeOrdered By: Gideon Bowman on 08-25-2022 CO2 [Moles/Vol] 28.0 mmol/L 21.0-32.0 [facility] Urea nitrogen/Creatinine [Mass ratio] 33.3 mg/mg 10-20 [facility] No Panel InformationOrdered By: Gideon Bowman on 08-25-2022 Estimated GFR (MDRD) Amer 105 mL/min >60 [facility] Comment on above: GFR Calc Estimated GFR (MDRD) Non-Af Amer 87 mL/min >60 [facility] Comment on above: Non- GFR Calc Serum or plasma calcium sourav urement (mass/volume)Ordered By: Gideon Bowman on 08-25-2022 Calcium [Mass/Vol] 9.3 mg/dL 8.5-10.1 [facility] Serum or plasma creatinine m easurement (mass/volume)Ordered By: Gideon Bowman on 08-25-2022 Creatinine [Mass/Vol] 0.72 mg/dL 0.55-1.02 [facility] Comment on above: The validity of the calculated GFR & GFRAA in patients over 70 years has not been determined. Clinical correlation is essential. Serum or plasma urea nitroge n measurement (mass/volume)Ordered By: Gideon Bowman on 08-25-2022 Urea nitrogen [Mass/Vol] 24 mg/dL 7-18 [facility] Thin prep Papanicolaou smear with manual screeningOrdered By: Gideon Bowman on 08-25-2022 Thin prep Papanicolaou smear with manual screening 6 5-15 [facility] Absolute lymphocyte countOrd ered By: Gideon Bowman on 07-28-2022 Lymphocytes Auto (Unsp spec) [#/Vol] 1.51 10*3/uL 0.83-4.51 [facility] Basophil percentageOrdered B y: Gideon Bowman on 07-28-2022 Basophils/100 WBC (Bld) 1.0 % 0-1 [facility] Bilirubin [Mass/Vol] 0.40 mg/dL 0.20-1.00 [facility] Comment on above: For patients on eltr ombopag therapy, use of Dimension Mcalpin TBIL is not recommended. Chloride [Moles/Vol] 105 mmol/L 98-107 [facility] Cholesterol [Mass/Vol] 287 mg/dL <200 [facility] Comment on above: <200 mg/dL Desirable 200-240 mg/dL Borderline >240 mg/dL High Risk Eosinophils/100 WBC (Bld) 5.2 % 0-5 [facility] Glucose [Mass/Vol] 91 mg/dL 74-106 [facility] Neutrophils (Bld) [#/Vol] 3.6 10*3/uL 2.0-7.7 [facility] Neutrophils/100 WBC (Bld) 60.6 % 47-70 [facility] Potassium [Moles/Vol] 4.2 mmol/L 3.5-5.1 [facility] Protein [Mass/Vol] 7.6 g/dL 6.4-8.2 [facility] Sodium [Moles/Vol] 139 mmol/L 136-145 [facility] Triglyceride [Mass/Vol] 227 mg/dL <199 [facility] Comment on above: The drugs N-Acetylcy steine and Metamizole may falsely depress this assay.Serum Triglycerides Reference Interval Normal <150 mg/dL Borderline high 150 - 199 mg/dL High 200 - 499 mg/dL Very High > or = 500 mg/dL WBC (Bld) [#/Vol] 5.9 10*3/uL 4.4-11.0 [facility] Blood erythrocytes count (nu mber/volume)Ordered By: Gideon Bowman on 07-28-2022 RBC (Bld) [#/Vol] 4.16 10*6/uL 4.2-5.4 [facility] Blood hemoglobin measurement (mass/volume)Ordered By: Gideon Bowman on 07-28-2022 Hemoglobin (Bld) [Mass/Vol] 12.7 g/dL 12.0-15.0 [facility] Blood lymphocytes/100 leukoc ytesOrdered By: Gideon Bowman on 07-28-2022 Lymphocytes/100 WBC (Bld) 25.5 % 19-41 [facility] Blood monocytes/100 leukocyt esOrdered By: Gideon Bowman on 07-28-2022 Monocytes/100 WBC (Bld) 7.4 % 0-10 [facility] Blood platelet mean volumeOr dered By: Gideon Bowman on 07-28-2022 Platelet mean volume (Bld) [Entitic vol] 12.3 fL 6.2-12.0 [facility] Determination of erythrocyte mean corpuscular volume (MCV)Ordered By: Gideon Bowman on 07-28-2022 MCV (RBC) [Entitic vol] 94.0 fL 81-99 [facility] Hematocrit Auto (Bld) [Volum e fraction]Ordered By: Gideon Bowman on 07-28-2022 Hematocrit (Bld) [Volume fraction] 39.1 % 37-47 [facility] - Chemistry and C hemistry - challengeOrdered By: Gideon Bowman on 07-28-2022 ALP [Catalytic activity/Vol] 84 U/L 45-117 [facility] ALT [Catalytic activity/Vol] 22 U/L 13-56 [facility] CO2 [Moles/Vol] 28.0 mmol/L 21.0-32.0 [facility] Globulin (S) [Mass/Vol] 3.7 g/dL 2.2-4.2 [facility] Urea nitrogen/Creatinine [Mass ratio] 23.3 mg/mg 10-20 [facility] - Hematology and Cell countsOrdered By: Gideon Bowman on 07-28-2022 Erythrocyte distribution width (RBC) [Entitic vol] 50.5 fL 35.1-43.9 [facility] Erythrocyte distribution width (RBC) [Ratio] 14.6 % 11.6-14.6 [facility] Immature granulocytes/100 WBC (Bld) 0.300 % 0.0-0.9 [facility] Comment on above: IG% - Immature Granu locytes (promyelocytes, myelocytes and metamyelocytes) > 1% indicates that a LEFT SHIFT is Present. MCH (RBC) [Entitic mass] 30.5 pg 27.0-32.0 [facility] Nucleated RBC/100 WBC (Bld) [Ratio] 0 % 0-5 [facility] MCHC Auto (RBC) [Mass/Vol]Or dered By: Gideon Bowman on 07-28-2022 MCHC (RBC) [Mass/Vol] 32.5 g/dL 32-36 [facility] No Panel InformationOrdered By: Gideon Bowman on 07-28-2022 Estimated GFR (MDRD) Amer 91 mL/min >60 [facility] Comment on above: GFR Calc Estimated GFR (MDRD) Non-Af Amer 75 mL/min >60 [facility] Comment on above: Non- GFR Calc Thyroid Stimulating Hormone (TSH) 0.41 uIU/mL 0.358-3.74 [facility] Platelets bldOrdered By: Tiffany Bowman on 07-28-2022 Platelets (Bld) [#/Vol] 231 10*3/uL 150-450 [facility] Serum or plasma albumin sourav urement (mass/volume)Ordered By: Gideon Bowman on 07-28-2022 Albumin [Mass/Vol] 3.9 g/dL 3.2-5.0 [facility] Serum or plasma albumin/glob ulin mass ratioOrdered By: Gideon Bowman on 07-28-2022 Albumin/Globulin [Mass ratio] 1.1 {ratio} 0.9-2.4 [facility] Serum or plasma calcium sourav urement (mass/volume)Ordered By: Gideon Bowman on 07-28-2022 Calcium [Mass/Vol] 9.3 mg/dL 8.5-10.1 [facility] Serum or plasma cholesterol in HDL measurement (mass/volume)Ordered By: Gideon Bowman on 07-28-2022 Cholesterol in HDL [Mass/Vol] 34 mg/dL >40 [facility] Comment on above: The drugs N-Acetylcy steine and Metamizole may falsely depress this assay. Reference Range HDL <40 mg/dL Low HDL Cholesterol HDL >or= 60 mg/dL High HDL Cholesterol Serum or plasma cholesterol in VLDL measurement (mass/volume)Ordered By: Gideon Bowman on 07-28-2022 Cholesterol in VLDL [Mass/Vol] 45 mg/dL 5-40 [facility] Serum or plasma creatinine m easurement (mass/volume)Ordered By: Gideon Bowman on 07-28-2022 Creatinine [Mass/Vol] 0.81 mg/dL 0.55-1.02 [facility] Comment on above: The validity of the calculated GFR & GFRAA in patients over 70 years has not been determined. Clinical correlation is essential. Serum or plasma low density lipoprotein (LDL) cholesterol measurement (mass/volume)Ordered By: Gideon Bowman on 07-28-2022 Cholesterol in LDL [Mass/Vol] 208 mg/dL 0-130 [facility] Serum or plasma urea nitroge n measurement (mass/volume)Ordered By: Gideon Bowman on 07-28-2022 Urea nitrogen [Mass/Vol] 19 mg/dL 7-18 [facility] Thin prep Papanicolaou smear with manual screeningOrdered By: Gideon Bowman on 07-28-2022 Thin prep Papanicolaou smear with manual screening 16 U/L 15-37 [facility] Thin prep Papanicolaou smear with manual screening 6 5-15 [facility] CORONAVIRUS PCR - [facility] 07-01-2021 SARS-CoV-2 (COVID-19) RNA JESSICA+probe Ql (Unsp spec) Positive Abnormal NORMAL: NEGATIVE [facility] Comment on above: Result Comment: { CA LLED TO INFECTION CONTROL { READ BACK BY Performed By: #### 2 [id number] #### [facility],[address] [place] [address] SEND TO IC? YES Normal [facility] Comment on above: Result Comment: RESU LTS FAXED TO INFECTION CONTROL. SARS-CoV-2 THIS TEST IS BEING USED UNDER THE FDA EUA PROCEDURE. THIS ASSAY HAS BEEN VALIDATED IN THE [facility] FOR USE WITH NASOPHARYNGEAL SPECIMENS IN [facility]. INTERPRETIVE DATA LABORATORY TEST RESULTS SHOULD ALWAYS [...] PUBLIC HEALTH AUTHORITIES. Performed By: #### [id number] #### [facility],[address] [place] [address] Vital Signs Date Time Vital Sign Value Performing Clinician Suleiman ray 12-01-2024 10:02-0400 Body height 170.[address] Antoni Slaughter MD Work Phone: [facility] 12-01-2024 10:02-0400 Body mass index (BMI) [Ratio] 32.4 kg/m2 Dr. Antoni Slaughter MD Work Phone: [facility] 12-01-2024 10:02-0400 Body temperature 96.2 [degF] Dr. Antoni Slaughter MD Work Phone: [facility] 12-01-2024 10:02-0400 Body weight 93.[address] Antoni Slaughter MD Work Phone: [facility] 12-01-2024 10:02-0400 Diastolic blood pressure 62 mm[Hg] Dr. Antoni Slaughter MD Work Phone: [facility] 12-01-2024 10:02-0400 Heart rate 58 /min Dr. Antoni Slaughter MD Work Phone: [facility] 12-01-2024 10:02-0400 Respiratory rate 18 /min Dr. Antoni Slaughter MD Work Phone: [facility] 12-01-2024 10:02-0400 SaO2% (BldA) [Mass fraction] 97 % Dr. Antoni Slaughter MD Work Phone: [facility] 12-01-2024 10:02-0400 Systolic blood pressure 99 mm[Hg] Dr. Antoni Slaughter MD Work Phone: [facility] 11-19-2024 10:09-0400 Body temperature 95.8 [degF] Dr. Antoni Slaughter MD Work Phone: [facility] 11-19-2024 10:09-0400 Diastolic blood pressure 69 mm[Hg] Dr. Antoni Slaughter MD Work Phone: [facility] 11-19-2024 10:09-0400 Heart rate 71 /min Dr. Antoni Slaughter MD Work Phone: [facility] 11-19-2024 10:09-0400 Respiratory rate 16 /min Dr. Antoni Slaughter MD Work Phone: [facility] 11-19-2024 10:09-0400 SaO2% (BldA) [Mass fraction] 99 % Dr. Antoni Slaughter MD Work Phone: [facility] 11-19-2024 10:09-0400 Systolic blood pressure 140 mm[Hg] Dr. Antoni Slaughter MD Work Phone: [facility] 11-17-2024 09:07-0400 Body height 170.[address] Antoni Slaughter MD Work Phone: [facility] 11-17-2024 09:07-0400 Body mass index (BMI) [Ratio] 32.8 kg/m2 Dr. Antoni Slaughter MD Work Phone: [facility] 11-17-2024 09:07-0400 Body temperature 98.3 [degF] Dr. Antoni Slaughter MD Work Phone: [facility] 11-17-2024 09:07-0400 Body weight 95.[address] Antoni Slaughter MD Work Phone: [facility] 11-17-2024 09:07-0400 Diastolic blood pressure 76 mm[Hg] Dr. Antoni Slaughter MD Work Phone: [facility] 11-17-2024 09:07-0400 Heart rate 73 /min Dr. Antoni Slaughter MD Work Phone: [facility] 11-17-2024 09:07-0400 Respiratory rate 18 /min Dr. Antoni Slaughter MD Work Phone: [facility] 11-17-2024 09:07-0400 SaO2% (BldA) [Mass fraction] 98 % Dr. Antoni Slaughter MD Work Phone: [facility] 11-17-2024 09:07-0400 Systolic blood pressure 123 mm[Hg] Dr. Antoni Slaughter MD Work Phone: [facility] 11-06-2024 12:05-0400 Body temperature 97.6 [degF] Dr. Antoni Slaughter MD Work Phone: [facility] 11-06-2024 12:05-0400 Diastolic blood pressure 65 mm[Hg] Dr. Antoni Slaughter MD Work Phone: [facility] 11-06-2024 12:05-0400 Heart rate 72 /min Dr. Antoni Slaughter MD Work Phone: [facility] 11-06-2024 12:05-0400 Respiratory rate 16 /min Dr. Antoni Slaughter MD Work Phone: [facility] 11-06-2024 12:05-0400 SaO2% (BldA) [Mass fraction] 98 % Dr. Antoni Slaughter MD Work Phone: [facility] 11-06-2024 12:05-0400 Systolic blood pressure 122 mm[Hg] Dr. Antoni Slaughter MD Work Phone: [facility] 2024 09:13-0400 Body height 170.[address] Antoni Slaughter MD Work Phone: [facility] 2024 09:13-0400 Body mass index (BMI) [Ratio] 32.8 kg/m2 Dr. Antoni Slaughter MD Work Phone: [facility] 2024 09:13-0400 Body temperature 97.4 [degF] Dr. Antoni Slaughter MD Work Phone: [facility] 2024 09:13-0400 Body weight 94.[address] Antoni Slaughter MD Work Phone: [facility] 2024 09:13-0400 Diastolic blood pressure 80 mm[Hg] Dr. Antoni Slaughter MD Work Phone: [facility] 2024 09:13-0400 Heart rate 90 /min Dr. Antoni Slaughter MD Work Phone: [facility] 2024 09:13-0400 Respiratory rate 16 /min Dr. Antoni Slaughter MD Work Phone: [facility] 2024 09:13-0400 SaO2% (BldA) [Mass fraction] 98 % Dr. Antoni Slaughter MD Work Phone: [facility] 2024 09:13-0400 Systolic blood pressure 138 mm[Hg] Dr. Antoni Slaughter MD Work Phone: [facility] 11-04-2024 09:46-0400 Body height 170.[address] Antoni Slaughter MD Work Phone: [facility] 11-04-2024 09:46-0400 Body mass index (BMI) [Ratio] 32.5 kg/m2 Dr. Antoni Slaughter MD Work Phone: [facility] 11-04-2024 09:46-0400 Body temperature 98.6 [degF] Dr. Antoni Slaughter MD Work Phone: [facility] 11-04-2024 09:46-0400 Body weight 94.[address] Antoni Slaughter MD Work Phone: [facility] 11-04-2024 09:46-0400 Diastolic blood pressure 76 mm[Hg] Dr. Antoni Slaughter MD Work Phone: [facility] 11-04-2024 09:46-0400 Heart rate 62 /min Dr. Antoni Slaughter MD Work Phone: [facility] 11-04-2024 09:46-0400 Respiratory rate 18 /min Dr. Antoni Slaughter MD Work Phone: [facility] 11-04-2024 09:46-0400 SaO2% (BldA) [Mass fraction] 99 % Dr. Antoni Slaughter MD Work Phone: [facility] 11-04-2024 09:46-0400 Systolic blood pressure 119 mm[Hg] Dr. Antoni Slaughter MD Work Phone: [facility] 10-22-2024 11:12-0400 Body temperature 97.4 [degF] Dr. Antoni Slaughter MD Work Phone: [facility] 10-22-2024 11:12-0400 Diastolic blood pressure 68 mm[Hg] Dr. Antoni Slaughter MD Work Phone: [facility] 10-22-2024 11:12-0400 Heart rate 71 /min Dr. Antoni Slaughter MD Work Phone: [facility] 10-22-2024 11:12-0400 Respiratory rate 16 /min Dr. Antoni Slaughter MD Work Phone: [facility] 10-22-2024 11:12-0400 SaO2% (BldA) [Mass fraction] 98 % Dr. Antoni Slaughter MD Work Phone: [facility] 10-22-2024 11:12-0400 Systolic blood pressure 146 mm[Hg] Dr. Antoni Slaughter MD Work Phone: [facility] 10-20-2024 09:32-0400 Body mass index (BMI) [Ratio] 32.2 kg/m2 Dr. Antoni Slaughter MD Work Phone: [facility] 10-20-2024 09:32-0400 Body temperature 98.3 [degF] Dr. Antoni Slaughter MD Work Phone: [facility] 10-20-2024 09:32-0400 Body weight 93.[address] Antoni Slaughter MD Work Phone: [facility] 10-20-2024 09:32-0400 Diastolic blood pressure 72 mm[Hg] Dr. Antoni Slaughter MD Work Phone: [facility] 10-20-2024 09:32-0400 Heart rate 70 /min Dr. Antoni Slaughter MD Work Phone: [facility] 10-20-2024 09:32-0400 Respiratory rate 18 /min Dr. Antoni Slaughter MD Work Phone: [facility] 10-20-2024 09:32-0400 SaO2% (BldA) [Mass fraction] 99 % Dr. Antoni Slaughter MD Work Phone: [facility] 10-20-2024 09:32-0400 Systolic blood pressure 113 mm[Hg] Dr. Antoni Slaughter MD Work Phone: [facility] 10-06-2024 15:16-0400 Inhaled oxygen flow rate 2 L/min Dr. Antoni Slaughter MD Work Phone: [facility] 10-06-2024 09:33-0400 Body mass index (BMI) [Ratio] 32.5 kg/m2 Dr. Antoni Slaughter MD Work Phone: [facility] 10-06-2024 09:33-0400 Body temperature 96 [degF] Dr. Antoni Slaughter MD Work Phone: [facility] 10-06-2024 09:33-0400 Body weight 94.[address] Antoni Slaughter MD Work Phone: [facility] 10-06-2024 09:33-0400 Diastolic blood pressure 72 mm[Hg] Dr. Antoni Slaughter MD Work Phone: [facility] 10-06-2024 09:33-0400 Heart rate 73 /min Dr. Antoni Slaughter MD Work Phone: [facility] 10-06-2024 09:33-0400 Respiratory rate 16 /min Dr. Antoni Slaughter MD Work Phone: [facility] 10-06-2024 09:33-0400 SaO2% (BldA) [Mass fraction] 98 % Dr. Antoni Slaughter MD Work Phone: [facility] 10-06-2024 09:33-0400 Systolic blood pressure 115 mm[Hg] Dr. Antoni Slaughter MD Work Phone: [facility] 09-29-2024 09:55-0400 Body mass index (BMI) [Ratio] 31.8 kg/m2 Dr. Antoni Slaughter MD Work Phone: [facility] 09-29-2024 09:55-0400 Body temperature 98 [degF] Dr. Antoni Slaughter MD Work Phone: [facility] 09-29-2024 09:55-0400 Body weight 92.[address] Antoni Slaughter MD Work Phone: [facility] 09-29-2024 09:55-0400 Diastolic blood pressure 66 mm[Hg] Dr. Antoni Slaughter MD Work Phone: [facility] 09-29-2024 09:55-0400 Heart rate 82 /min Dr. Antoni Slaughter MD Work Phone: [facility] 09-29-2024 09:55-0400 Respiratory rate 16 /min Dr. Antoni Slaughter MD Work Phone: [facility] 09-29-2024 09:55-0400 SaO2% (BldA) [Mass fraction] 98 % Dr. Antoni Slaughter MD Work Phone: [facility] 09-29-2024 09:55-0400 Systolic blood pressure 97 mm[Hg] Dr. Antoni Slaughter MD Work Phone: [facility] 09-22-2024 09:20-0400 Body mass index (BMI) [Ratio] 32.5 kg/m2 Dr. Antoni Slaughter MD Work Phone: [facility] 09-22-2024 09:20-0400 Body temperature 98.2 [degF] Dr. Antoni Slaughter MD Work Phone: [facility] 09-22-2024 09:20-0400 Body weight 94.[address] Antoni Slaughter MD Work Phone: [facility] 09-22-2024 09:20-0400 Diastolic blood pressure 88 mm[Hg] Dr. Antoni Slaughter MD Work Phone: [facility] 09-22-2024 09:20-0400 Heart rate 74 /min Dr. Antoni Slaughter MD Work Phone: [facility] 09-22-2024 09:20-0400 Respiratory rate 18 /min Dr. Antoni Slaughter MD Work Phone: [facility] 09-22-2024 09:20-0400 SaO2% (BldA) [Mass fraction] 95 % Dr. Antoni Slaughter MD Work Phone: [facility] 09-22-2024 09:20-0400 Systolic blood pressure 124 mm[Hg] Dr. Antoni Slaughter MD Work Phone: [facility] 09-17-2024 09:55-0400 Body temperature 97.6 [degF] Dr. Antoni Slaughter MD Work Phone: [facility] 09-17-2024 09:55-0400 Diastolic blood pressure 69 mm[Hg] Dr. Antoni Slaughter MD Work Phone: [facility] 09-17-2024 09:55-0400 Heart rate 66 /min Dr. Antoni Slaughter MD Work Phone: [facility] 09-17-2024 09:55-0400 Respiratory rate 16 /min Dr. Antoni Slaughter MD Work Phone: [facility] 09-17-2024 09:55-0400 SaO2% (BldA) [Mass fraction] 95 % Dr. Antoni Slaughter MD Work Phone: [facility] 09-17-2024 09:55-0400 Systolic blood pressure 109 mm[Hg] Dr. Antoni Slaughter MD Work Phone: [facility] 09-17-2024 07:48-0400 Body height 170.[address] Antoni Slaughter MD Work Phone: [facility] 09-17-2024 07:48-0400 Body mass index (BMI) [Ratio] 31.7 kg/m2 Dr. Antoni Slaughter MD Work Phone: [facility] 09-17-2024 07:48-0400 Body weight [address] Antoni Slaughter MD Work Phone: [facility] 09-09-2024 14:56-0400 Body mass index (BMI) [Ratio] 32.2 kg/m2 Dr. Antoni Slaughter MD Work Phone: [facility] 09-09-2024 14:56-0400 Body temperature 97.4 [degF] Dr. Antoni Slaughter MD Work Phone: [facility] 09-09-2024 14:56-0400 Body weight 93.[address] Antoni Slaughter MD Work Phone: [facility] 09-09-2024 14:56-0400 Diastolic blood pressure 81 mm[Hg] Dr. Antoni Slaughter MD Work Phone: [facility] 09-09-2024 14:56-0400 Heart rate 86 /min Dr. Antoni Slaughter MD Work Phone: [facility] 09-09-2024 14:56-0400 Respiratory rate 16 /min Dr. Antoni Slaughter MD Work Phone: [facility] 09-09-2024 14:56-0400 SaO2% (BldA) [Mass fraction] 98 % Dr. Antoni Slaughter MD Work Phone: [facility] 09-09-2024 14:56-0400 Systolic blood pressure 144 mm[Hg] Dr. Antoni Slaughter MD Work Phone: [facility] 09-08-2024 09:17-0400 Body weight 93.[address] Antoni Slaughter MD Work Phone: [facility] 09-08-2024 08:54-0400 Diastolic blood pressure 72 mm[Hg] Dr. Antoni Slaughter MD Work Phone: [facility] 09-08-2024 08:54-0400 Respiratory rate 16 /min Dr. Antoni Slaughter MD Work Phone: [facility] 09-08-2024 08:54-0400 Systolic blood pressure 113 mm[Hg] Dr. Antoni Slaughter MD Work Phone: [facility] 09-04-2024 13:38-0400 Body temperature 96.5 [degF] Dr. Antoni Slaughter MD Work Phone: [facility] 09-04-2024 13:38-0400 Diastolic blood pressure 83 mm[Hg] Dr. Antoni Slaughter MD Work Phone: [facility] 09-04-2024 13:38-0400 Heart rate 67 /min Dr. Antoni Slaughter MD Work Phone: [facility] 09-04-2024 13:38-0400 Respiratory rate 16 /min Dr. Antoni Slaughter MD Work Phone: [facility] 09-04-2024 13:38-0400 SaO2% (BldA) [Mass fraction] 97 % Dr. Antoni Slaughter MD Work Phone: [facility] 09-04-2024 13:38-0400 Systolic blood pressure 146 mm[Hg] Dr. Antoni Slaughter MD Work Phone: [facility] 08-29-2024 11:11-0400 Body mass index (BMI) [Ratio] 32.11 kg/m2 Vibha Flores MD Work Phone: [facility] 08-29-2024 11:11-0400 Body weight 92.99 kg Vibha Flores MD Work Phone: [facility] 08-29-2024 11:11-0400 Diastolic blood pressure 84 mm[Hg] Vibha Flores MD Work Phone: [facility] 08-29-2024 11:11-0400 Heart rate 90 /min Vibha Flores MD Work Phone: [facility] 08-29-2024 11:11-0400 Systolic blood pressure 138 mm[Hg] Vibha Flores MD Work Phone: [facility] 08-07-2024 13:52-0500 Body height 170.2 cm P[address] 1 [facility] 08-07-2024 13:52-0500 Body mass index (BMI) [Ratio] 32.26 kg/m2 Pst 1 [facility] 08-07-2024 13:52-0500 Body temperature 98.2 [degF] Pst 1 [facility] 08-07-2024 13:52-0500 Body weight 93.44 kg Pst 1 [facility] 08-07-2024 13:52-0500 Diastolic blood pressure 77 mm[Hg] Pst 1 [facility] 08-07-2024 13:52-0500 Heart rate 72 /min Pst 1 [facility] 08-07-2024 13:52-0500 Respiratory rate 16 /min Pst 1 [facility] 08-07-2024 13:52-0500 SaO2% (BldA) [Mass fraction] 97 % Pst 1 [facility] 08-07-2024 13:52-0500 Systolic blood pressure 120 mm[Hg] Pst 1 [facility] 08-04-2024 08:08-0500 Body height 170.[address] Antoni Slaughter MD Work Phone: [facility] 08-04-2024 08:08-0500 Body mass index (BMI) [Ratio] 32.5 kg/m2 Dr. Antoni Slaughter MD Work Phone: [facility] 08-04-2024 08:08-0500 Body temperature 96.4 [degF] Dr. Antoni Slaughter MD Work Phone: [facility] 08-04-2024 08:08-0500 Body weight 94.[address] Antoni Slaughter MD Work Phone: [facility] 08-04-2024 08:08-0500 Diastolic blood pressure 78 mm[Hg] Dr. Antoni Slaughter MD Work Phone: [facility] 08-04-2024 08:08-0500 Heart rate 73 /min Dr. Antoni Slaughter MD Work Phone: [facility] 08-04-2024 08:08-0500 Respiratory rate 16 /min Dr. Antoni Slaughter MD Work Phone: [facility] 08-04-2024 08:08-0500 SaO2% (BldA) [Mass fraction] 98 % Dr. Antoni Slaughter MD Work Phone: [facility] 08-04-2024 08:08-0500 Systolic blood pressure 118 mm[Hg] Dr. Antoni Slaughter MD Work Phone: [facility] 08-01-2024 10:25-0500 Body height 170.2 cm Vibha Flores MD Work Phone: [facility] 08-01-2024 10:25-0500 Body mass index (BMI) [Ratio] 32.89 kg/m2 Vibha Flores MD Work Phone: [facility] 08-01-2024 10:25-0500 Body weight 95.25 kg Vibha Flores MD Work Phone: [facility] 08-01-2024 10:25-0500 Diastolic blood pressure 85 mm[Hg] Vibha Flores MD Work Phone: [facility] 08-01-2024 10:25-0500 Heart rate 71 /min Vibha Flores MD Work Phone: [facility] 08-01-2024 10:25-0500 Systolic blood pressure 132 mm[Hg] Vibha Flores MD Work Phone: [facility] 07-29-2024 10:01-0500 Body weight 94.[address] Antoni Slaughter MD Work Phone: [facility] 07-18-2024 08:37-0500 Body height 170.2 cm Vibha Flores MD Work Phone: [facility] 07-18-2024 08:37-0500 Body mass index (BMI) [Ratio] 32.87 kg/m2 Vibha Flores MD Work Phone: [facility] 07-18-2024 08:37-0500 Body weight 95.21 kg Vibha Flores MD Work Phone: [facility] 07-18-2024 08:37-0500 Diastolic blood pressure 73 mm[Hg] Vibha Flores MD Work Phone: [facility] 07-18-2024 08:37-0500 Heart rate 76 /min Vibha Flores MD Work Phone: [facility] 07-18-2024 08:37-0500 Systolic blood pressure 112 mm[Hg] Vibha Flores MD Work Phone: [facility] 07-02-2024 10:04-0500 Body mass index (BMI) [Ratio] 32.9 kg/m2 Dr. Antoni Slaughter MD Work Phone: [facility] 07-02-2024 10:04-0500 Body weight 95.[address] Antoni Slaughter MD Work Phone: [facility] 07-02-2024 10:01-0500 Body temperature 98.3 [degF] Dr. Antoni Slaughter MD Work Phone: [facility] 07-02-2024 10:01-0500 Diastolic blood pressure 79 mm[Hg] Dr. Antoni Slaughter MD Work Phone: [facility] 07-02-2024 10:01-0500 Heart rate 69 /min Dr. Antoni Slaughter MD Work Phone: [facility] 07-02-2024 10:01-0500 Respiratory rate 18 /min Dr. Antoni Slaughter MD Work Phone: [facility] 07-02-2024 10:01-0500 SaO2% (BldA) [Mass fraction] 99 % Dr. Antoni Slaughter MD Work Phone: [facility] 07-02-2024 10:01-0500 Systolic blood pressure 129 mm[Hg] Dr. Antoni Slaughter MD Work Phone: [facility] 06-26-2024 11:20-0500 Body temperature 97 [degF] Dr. Antoni Slaughter MD Work Phone: [facility] 06-26-2024 11:20-0500 Diastolic blood pressure 62 mm[Hg] Dr. Antoni Slaughter MD Work Phone: [facility] 06-26-2024 11:20-0500 Heart rate 66 /min Dr. Antoni Slaughter MD Work Phone: [facility] 06-26-2024 11:20-0500 Respiratory rate 16 /min Dr. Antoni Slaughter MD Work Phone: [facility] 06-26-2024 11:20-0500 SaO2% (BldA) [Mass fraction] 95 % Dr. Antoni Slaughter MD Work Phone: [facility] 06-26-2024 11:20-0500 Systolic blood pressure 101 mm[Hg] Dr. Antoni Slaughter MD Work Phone: [facility] 06-26-2024 09:36-0500 Body mass index (BMI) [Ratio] 33.4 kg/m2 Dr. Antoni Slaughter MD Work Phone: [facility] 06-26-2024 09:36-0500 Body weight 96.[address] Antoni Slaughter MD Work Phone: [facility] 04-30-2024 13:52-0500 Body mass index (BMI) [Ratio] 32.9 kg/m2 Dr. Antoni Slaughter MD Work Phone: [facility] 04-30-2024 13:52-0500 Body temperature 97.1 [degF] Dr. Antoni Slaughter MD Work Phone: [facility] 04-30-2024 13:52-0500 Body weight 95.[address] Antoni Slaughter MD Work Phone: [facility] 04-30-2024 13:52-0500 Diastolic blood pressure 84 mm[Hg] Dr. Antoni Slaughter MD Work Phone: [facility] 04-30-2024 13:52-0500 Heart rate 86 /min Dr. Antoni Slaughter MD Work Phone: [facility] 04-30-2024 13:52-0500 Respiratory rate 16 /min Dr. Antoni Slaughter MD Work Phone: [facility] 04-30-2024 13:52-0500 SaO2% (BldA) [Mass fraction] 95 % Dr. Antoni Slaughter MD Work Phone: [facility] 04-30-2024 13:52-0500 Systolic blood pressure 120 mm[Hg] Dr. Antoni Slaughter MD Work Phone: [facility] 08-25-2022 08:51-0400 Body height 170.[address] Antoni Slaughter Work Phone: [facility] 08-25-2022 08:51-0400 Body mass index (BMI) [Ratio] 31.9 kg/m2 Dr. Antoni Slaughter Work Phone: [facility] 08-25-2022 08:51-0400 Body temperature 97.4 [degF] Dr. Antoni Slaughter Work Phone: [facility] 08-25-2022 08:51-0400 Body weight 92.[address] Antoni Slaughter Work Phone: [facility] 08-25-2022 08:51-0400 Diastolic blood pressure 74 mm[Hg] Dr. Antoni Slaughter Work Phone: [facility] 08-25-2022 08:51-0400 Heart rate 74 /min Dr. Antoni Slaughter Work Phone: [facility] 08-25-2022 08:51-0400 Respiratory rate 18 /min Dr. Antoni Slaughter Work Phone: [facility] 08-25-2022 08:51-0400 SaO2% (BldA) [Mass fraction] 96 % Dr. Antoni Slaughter Work Phone: [facility] 08-25-2022 08:51-0400 Systolic blood pressure 134 mm[Hg] Dr. Antoni Slaughter Work Phone: [facility] 07-28-2022 07:58-0500 Body height 170.[address] Antoni Slaughter Work Phone: [facility] 07-28-2022 07:58-0500 Body mass index (BMI) [Ratio] 32.1 kg/m2 Dr. Antoni Slaughter Work Phone: [facility] 07-28-2022 07:58-0500 Body temperature 97 [degF] Dr. Antoni Slaughter Work Phone: [facility] 07-28-2022 07:58-0500 Body weight 93.[address] Antoni Slaughter Work Phone: [facility] 07-28-2022 07:58-0500 Diastolic blood pressure 100 mm[Hg] Dr. Antoni Slaughter Work Phone: [facility] 07-28-2022 07:58-0500 Heart rate 78 /min Dr. Antoni Slaughter Work Phone: [facility] 07-28-2022 07:58-0500 Respiratory rate 18 /min Dr. Antoni Slaughter Work Phone: [facility] 07-28-2022 07:58-0500 SaO2% (BldA) [Mass fraction] 98 % Dr. Antoni Slaughter Work Phone: [facility] 07-28-2022 07:58-0500 Systolic blood pressure 158 mm[Hg] Dr. Antoni Slaughter Work Phone: [facility] Encounters Encounter Date Encounter Type Care Provider Facility Start: 12-03-2024 ambulatory Antoni Kenyon ty:[facility] Start: 12-01-[address] Dayton Lewis MD -[facility] Start: 12-01-2024 End: 12-01-[address] Antoni Leach MD -[facility] Work Phone: Start: 12-01-2024 End: 12-01-[address] Antoni Slaughter MD Work Phone: [facility] Work Phone: Start: 11-17-2024 End: 11-17-[address] Antoni Slaughter MD Work Phone: [facility] Work Phone: Start: 11-17-2024 End: 11-17-2024 Patient encounter procedure Ceci SIMS -[facility] Work Phone: Start: 11-17-[address] Dayton Lewis MD -[facility] Start: 2024 End: [address] Antoni Slaughter MD -[facility] Work Phone: Start: 2024 End: [address] Antoni Slaughter MD Work Phone: [facility] Work Phone: Start: 11-04-2024 End: 11-04-2024 Patient encounter procedure Ceci Hebert [facility] Work Phone: Start: 11-04-2024 End: 11-04-[address] Antoni Slaughter MD Work Phone: [facility] Work Phone: Start: 11-04-[address] Dayton Lewis MD -[facility] Start: 10-20-2024 End: 10-20-2024 Patient encounter procedure Ceci Hebert [facility] Work Phone: Start: 10-20-2024 End: 10-20-2024 ambulatory [facility] Facility:[facility] Start: 10-06-2024 End: 10-06-[address] Antoni Leach MD -[facility] Work Phone: Start: 10-06-2024 End: 10-06-2024 ambulatory [facility] Facility:[facility] Start: 09-29-2024 End: 09-29-2024 Patient encounter procedure Ceci Hebert [facility] Work Phone: Start: 09-29-2024 End: 09-29-2024 ambulatory [facility] Facility:[facility] Start: 09-22-2024 End: 09-22-[address] Antoni Leach MD -[facility] Work Phone: Start: 09-22-2024 End: 09-22-2024 [facility] Start: 09-17-2024 ambulatory [facility] Fac[facility] ty:[facility] Start: 09-17-2024 Non-patient / Non-visit Dr. Nuria Leigh MD -[facility] Start: 09-17-2024 End: 09-17-2024 Admission to same day surgery center Dr. Humberto Leigh MD [facility] Start: 09-17-2024 End: 09-17-[address] Antoni Slaughter MD Work Phone: [facility] Work Phone: Start: 09-12-2024 End: 09-12-2024 Telephone encounter Luis [facility] Comment on above: [employer] - H ospital Follow Up Start: 09-09-2024 End: 09-09-2024 Patient encounter procedure Ceci Hebert NP- -[facility] Work Phone: Start: 09-09-2024 End: 09-09-2024 [facility] Start: 09-08-2024 End: 09-08-[address] Humberto Leigh MD -[facility] Work Phone: Start: 09-08-2024 End: 09-08-2024 ambulatory [facility] Facility:[facility] Start: 09-04-[address] Dayton Lewis MD -[facility] Start: 09-04-2024 End: 09-04-[address] 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 Start: 08-13-2024 End: 08-15-2024 Evaluation and management of inpatient [facility]IBHA [facility] Start: 08-07-2024 End: 08-07-2024 Admission to [facility] 1 Pre Surgical Testing Start: 08-07-2024 End: 08-07-2024 Preprocedural examination done Ostomy Nurse [facility] Start: 08-07-2024 End: 08-07-2024 Patient encounter procedure Ostomy Nurse [facility] WOUND OSTOMY SERVICE Comment on above: [...] 08-07-2024 Encounter for other preprocedural examination VIBHA [facility] Start: 08-04-2024 End: 08-04-[address] Antoni Slaughter MD -[facility] Work Phone: Start: 08-04-2024 End: 08-04-[address] Antoni Slaughter MD Work Phone: [facility] Work Phone: Start: 08-04-2024 End: 08-04-2024 ambulatory Antoni Slaughter Facility:[facility] Start: 08-01-2024 End: 08-01-2024 Patient encounter procedure Vibha Flores MD Work Phone: [facility] SURGERY DE[facility] Comment on above: Rectal cancer (HCC) (Primary Dx) Start: 08-01-2024 End: 08-01-2024 ambulatory [facility]IB[facility] Start: 07-29-2024 ambulatory Antoni Slaughter Facili ty:[facility] Start: 07-18-2024 End: 07-18-2024 Office outpatient new 45 minutes Vibha Flores MD Work Phone: [facility] SURGERY DEPARTMENT Comment on above: Rectal cancer (HCC) (Primary Dx) Start: 07-18-2024 End: 07-18-2024 ambulatory [facility] Facility:[facility] Start: 07-17-2024 End: 07-17-2024 Patient encounter procedure Sofia CHANCE -[facility] Work Phone: Start: 07-17-2024 End: 07-17-2024 [facility] Start: 07-04-2024 End: 07-04-[address] Dayton Lewis MD -[facility] Work Phone: Start: 07-04-2024 End: 07-04-2024 ambulatory Antoni Slaughter Facility:[facility] Start: 07-02-[address] Dayton Lewis MD -[facility] Start: 07-02-2024 End: 07-02-[address] Dayton Lewis MD -[facility] Work Phone: Start: 07-02-2024 End: 07-02-2024 ambulatory Sofia Cuadra Facility:[facility] Start: 06-26-2024 Non-patient / Non-visit Rivrea Kirk nd DO -[facility] Start: 06-26-2024 End: 06-26-2024 Admission to same day surgery center Rivera Townsend DO -Endoscopy Work Phone: Start: 06-26-2024 End: 06-26-2024 ambulatory Rivera Townsend Facility:[facility] Start: 06-17-2024 End: 06-17-2024 [facility] Work [facility]: Start: 06-17-2024 End: 06-17-2024 ambulatory Sofia Cuadra Facility:[facility] Start: 04-30-2024 End: 04-30-[address] Antoni Slaughter MD -[facility] Work Phone: Start: 04-30-2024 End: 04-30-[address] Antoni Slaughter MD [facility] Start: 04-30-2024 End: 04-30-2024 ambulatory Antoni Stevens:[facility] Start: 11-01-[address] Antoni Slaughter MD Work Phone: [facility] Start: 08-25-2022 End: 08-25-[address] Antoni Slaughter Work Phone: [facility] Work Phone: Start: 08-25-2022 End: 08-25-[address] Antoni Slaughter Work Phone: [facility] Start: 07-28-2022 End: 07-28-[address] Antoni Slaughter Work Phone: [facility] Work Phone: Start: 07-28-2022 End: 07-28-[address] Antoni Slaughter Work Phone: [facility] Start: 07-15-2021 End: 07-15-2021 ambulatory MORRO NELSON [facility] Start: 07-01-2021 End: 07-01-[address] SALMA MELGOZA [facility] Procedures Date Procedure Procedure Detail Performing Clinician [...] the presence orabsence of malignant disease.Performed at: [place] [id number] Director: Osei Busch PhD, Phone: [phone] Start: 09-04-[address] Consuelo Slaughter MD Work Phone: Start: 09-04-2024 Total iron binding capacity measurement Dr. Antoni Slaughter MD Work Phone: Start: 08-07-2024 Antibody screen VIBHA FLORES Comment on above: Order Comment: Specimen Type: BLOOD SPEC IMENOrdering Facility: [facility] Address: [address] [place] [address] Performed By: #### T [id number] ####[facility] BLOOD BANKIA [id number] [place] [address] [place] Start: 08-04-2024 Measurement [...] the presence orabsence of malignant disease.Performed at: [place] [id number] Director: Osei Busch PhD, Phone: [phone] Start: 07-02-2024 Measurement of renal function Dr. Sunitha Slaughter MD Work Phone: Comment on above: GFR Calc Start: 06-26-[address] Antoni Slaughter MD Work Phone: Plan of Treatment Date Care Activity Detail Author Start: 2033 RSV Vaccine (1 - 1-d ose 75+ series) RSV Vaccine (1 - 1-dose 75+ series) [facility] Start: 08-16-2027 Diabetes Screening Diabetes Screenin [facility] Start: 08-07-2027 Diabetes Screening Diabetes Screenin g [facility] Start: 08-07-2025 BP Controlled (<130/80) BP Controlle d (<130/80) [facility] Start: 07-18-2025 BP Controlled (<130/80) BP Controlle d (<130/80) [facility] Start: 12-01-2024 [facility] Start: 12-01-2024 Vital signs measurements [facility] Start: 11-28-2024 End: 11-28-2024 Patient encounter procedure 11/28/2024 8:30 AM EDT Office Visit [facility] SURGERY DEPARTMENT [address] [facility] [address] [place] [address] Vibha Flores MD [address] [place] [address] (Fax) 3 month follow up [facility] Comment on above: 3 month follow up Start: 11-17-2024 [facility] Start: 11-17-2024 Vital signs measurements [facility] Start: 11-04-2024 [facility] Start: 11-04-2024 Vital signs measurements [facility] Start: 10-20-2024 Vital signs measurements [facility] Start: 10-17-2024 End: 10-17-2024 Patient encounter procedure 10/17/2024 9:00 AM EDT Office Visit [facility] [address] [facility] [address]rd [place] [phone] Vibha Flores MD 1 [place] [phone] (Fax) Follow up 3 Months [facility] SUR[facility]ERY [facility] Comment on above: Follow up 3 Months Start: 10-06-2024 Vital signs measurements [facility] Start: 09-22-2024 Venous catheter care management [facility] Start: 09-22-2024 Vital signs measurements [facility] Start: 09-17-2024 Anesthesia access central venous circulation ANESTH VASCULAR ACCESS [facility] Start: 09-17-2024 Insj tunneled ctr va d w/subq port age 3 yr/> INSERT TUNNELED CV CATH [facility] Start: 09-17-2024 Patient discharge [facility] Start: 09-04-2024 Patient referral [facility] Work Phone: Start: 08-29-2024 End: 08-29-2024 Patient encounter procedure 08/29/2024 11:00 AM EDT Office Visit [facility] [address] [facility] [address]rd [place] [phone] Vibha Flores MD 1 [place] [phone] (Fax) post op [facility] Comment on above: post op Start: 08-14-2024 End: 08-14-2024 ambulatory 08/14/2024 11:00 AM EST Visit (SP) Office [facility] [address] [place], [place] [phone] Erik Sutherland MD [address] [place], [place] [phone] New pt ref from Vibha Wood for rectal cancer [facility] Comment on above: New pt ref from Barbara Flores for rectal cancer Start: 08-13-2024 End: 08-13-2024 Admission to same day surgery center 08/13/2024 1:15 PM EST - 08/13/2024 6:00 PM EST [facility] [address] [place] [address] Vibha Flores MD 1 [place] [phone] XI ROBOTIC LAPAROSCOPIC RESECTION COLON LOW ANTERIOR [...] EST Hospital Encounter [facility] [address] [place] [address] Vibha Flores MD 1 [place] [phone] Rectal cancer (HCC) [C20] [facility] Comment on above: Rectal cancer (HCC) [C20] Start: 08-07-2024 End: 08-07-2024 ambulatory 08/07/2024 1:40 PM EST PAT Pre Surgical Testing 1 [place] [phone] XI ROBOTIC LAPAROSCOPIC RESECTION COLON LOW ANTERIOR W/ COLORECTAL ANASTOMOSIS/ POSSIBLE STOMA/ ERAS/ W BLOCK Pre Surgical Testing Comment on above: XI ROBOTIC LAPAROSCO PIC RESECTION COLON LOW ANTERIOR W/ COLORECTAL ANASTOMOSIS/ POSSIBLE STOMA/ ERAS/ W BLOCK Start: 06-26-2024 [facility] Start: 06-11-2024 Advance Directive Discussion Advance Directive Discussion [facility] Start: 04-30-2024 Patient referral [facility] Work Phone: Start: 02-10-2024 Covid-19 Vaccine ( season) Covid-19 Vaccine ( season) [facility] Start: 11-06-2023 Screening for osteoporosis Bone Density Screening [facility] Start: 2018 RSV Vaccine (1 - Ris k 60-74 years 1-dose series) RSV Vaccine (1 - Risk 60-74 years 1-dose series) [facility] Start: 2008 Screening for malign ant neoplasm of lung Lung Cancer Screening [facility] Start: 2008 Shingrix Vaccine (1 of 2) Shingrix Vaccine (1 of 2) [facility] Start: 11-06-2003 Diabetes Screening Diabetes Screenin g [facility] Start: 11-06-2003 Lipid panel Lipid Screening [facility] Start: 11-06-2003 Screening for malign ant neoplasm of colon [facility] Start: 1998 Screening for malign ant neoplasm of breast Mammogram Screening [facility] Start: 11-06-1979 Screening for malign ant neoplasm of cervix Cervical Cancer Screening [facility] Start: 1977 Pneumococcal Vaccine : 50+ (1 of 2 - PCV) Pneumococcal Vaccine: 50+ (1 of 2 - PCV) [facility] Start: 1977 Urine microalbumin profile DTaP,Tdap,Td Vaccine (1 - Tdap) [facility] Start: 1976 Annual PCP Team Golf Caddie rosalva Disease Visit Annual PCP Team Chronic Disease Visit [facility] Start: 1976 Anxiety Screening Anxiety Screening [facility] Start: 1976 BP Controlled (<130/80) BP Controlle d (<130/80) [facility] Start: 1976 Depression Screening Depression Scre ening [facility] Start: 1976 Hepatitis C screening Hepatitis C Sc denys [facility] Start: 1976 HIV screening [facility] Scre[facility] H&P for surgery H&P FOR SURGERY Procedures Routine Rectal cancer (HCC) Ordered: 08/01/2024 [facility] Work Phone: Comment on above: Ordered: 08/01/2024 Patient referral [facility] Work Phone: Thyroid stimulating hormone measurement [facility] Immunizations Immunization Date Immunization Notes Care Provider Fa ciliedgar 04-30-2024 Seasonal trivalent influenza vaccine, adjuvanted, preservative free Dr. Antoni Slaughter MD Work Phone: [facility] Payers Date Payer Category Payer Medicare AETNA MEDICARE A ETNA MEDICARE O [id number] 2024-Present [phone] [address] [place] [address] [facility] [id number] 2024 Medicare (Managed Care) AETNA MA JAMESON [id number] 2024 Self-pay [id number] 2023 Private Health Insurance [id number] 1960 Unknown [id number] 2.16.840.1.044350.3.579.2. 651 1960 Unknown [id number] 2.16.840.1.069371.3.579.2. 651 Unknown [id number] Unknown [facility] UMU [id number] Unknown [id number] 2.16.840.1.477075.3.579.2. 462 Unknown [id number] 2.16.840.1.432959.3.579.2. 462 Unknown [id number] 2.16.840.1.581087.3.579.2. 462 Unknown [id number] 2.16.840.1.045268.3.579.2. 462 Unknown [id number] 2.16.840.1.775791.3.579.2. 462 Unknown [id number] 2.16.840.1.122017.3.579.2. 462 Unknown [id number] 2.16.840.1.530834.3.579.2. 462 Unknown [id number] 2.16.840.1.118831.3.579.2. 462 Unknown [id number] 2.16.840.1.493931.3.579.2. 462 Unknown [id number] 2.16.840.1.776834.3.579.2. 462 Unknown [id number] 2.16.840.1.511891.3.579.2. 462 Unknown [id number] 2.16.840.1.608816.3.579.2. 462 Unknown [id number] 2.16.840.1.335715.3.579.2. 462 Unknown [id number] 2.16.840.1.476740.3.579.2. 462 Unknown [id number] 2.16.840.1.860112.3.579.2. 462 Unknown [id number] 2.16.840.1.477574.3.579.2. 462 Unknown [id number] 2.16.840.1.077635.3.579.2. 462 Unknown [id number] 2.16.840.1.719204.3.579.2. 462 Unknown [id number] 2.16.840.1.867359.3.579.2. 462 Unknown [id number] 2.16.840.1.796860.3.579.2. 462 Unknown [id number] 2.16.840.1.582489.3.579.2. 462 Unknown [id number] 2.16.840.1.853328.3.579.2. 462 Unknown [id number] 2.16.840.1.010323.3.579.2. 462 Unknown [id number] 2.16.840.1.578054.3.579.2. 462 Social History Date Type Detail Facility Start: 07-28-2022 End: 08-25-2022 Tobacco smoking status [facility] Unknown if ever smoked [facility] Start: 1960 Sex Assigned At Female W [facility] Start: 07-18-2024 End: 09-11-2024 Tobacco smoking status NJIS Smokes tobacco daily [facility] Start: 06-11-1974 History of tobacco use Cigarette Smo ker [facility] Start: 07-18-2024 End: 08-01-2024 Tobacco use and exposure User of smokeless tobacco [facility] Start: 07-18-2024 End: 08-01-2024 History of Social function [facility] Start: 07-18-2024 End: 08-01-2024 Tobacco use panel [facility] National Score (1-10 0), lower number is lower risk 72 [facility] Start: 1960 Sex assigned at Not on file C [facility] Start: 08-07-2024 Tobacco use and exposure Smokeless tobacco non-user [facility] Start: 08-07-2024 End: 08-29-2024 Alcoholic beverage intake Current drinker of alcohol (finding) [facility] Start: 08-07-2024 Tobacco Comment Currently smok ing 3/4 PPD [facility] Start: 08-06-2024 Alcohol Comment very rarely [facility] Has the [facility], or [employer] threatened to shut off services in your home in past 12Mo No [facility] (I/We) worried jeanette er (my/our) food would run out before (I/we) got money to buy more. Never true [facility] Start: 08-14-2024 End: 09-17-2024 Sex Female (finding) [facility] Medical Equipment Procedure Code Equipment Code Equipment Origin al Text Equipment Identifier Dates Insertion, vascular access port ([id number]) Vascular port/catheter [id number] FDA Start: 09-17-2024 Goals Date Patient Goal Desired Activity /State Functional Status Date Assessment Result Facility 08-15-2024 Are you deaf, or do you have serious difficulty hearing No 08/15/2024 12:22 PM Lisa Lord, CELESTE No [facility] 08-15-2024 Are you blind, or do you have serious difficulty seeing, even when wearing glasses No 08/15/2024 12:22 PM Lisa Lord, CELESTE No [facility] 08-15-2024 Do you have serious difficulty walking or climbing stairs No 08/15/2024 12:22 PM Lisa Lord, CELESTE No [facility] 08-15-2024 Do you have difficul ty dressing or bathing No 08/15/2024 12:22 PM Lisa Lord, RN No [facility] 08-15-2024 Because of a physica l, mental, or emotional condition, do you have difficulty doing errands alone such as visiting a physician's office or shopping No 08/15/2024 12:22 PM Lisa Lord, CELESTE No [facility] Mental Status Date Assessment Result Facility 09-17-2024 Cognitive function Voice/Name [facility] Work Phone: 08-15-2024 Because of a physica l, mental, or emotional condition, do you have serious difficulty concentrating, remembering, or making decisions No 08/15/2024 12:22 PM Lisa Lord, CELESTE No [facility] 06-26-2024 Cognitive function Level Of Cons ciousness Sedated [facility] Work Phone: 01-16-2025 Cognitive function Voice/Name [facility] Work Phone: Clinical Notes 04-30-2024 to 11-17-2024 Note Date & Type Note Facility 11-17-2024 Progress note [facility] 11-17-2024 Progress note Note Date/Time November 17, 2024 10:00am [facility] [place] [address] OFFICE VISIT Date of Service: 11/17/24 0903 MR#: [id number] Acct: [id number] Name: TRUDY CALLE Rep #: [id number] : 1960 From: Ceci Montanez ch, NP JUNIOR ELECTRICAL ENGINEER-C Age/Sex: 64/F Location: [facility] Status: Signed HPI Subjective Date of Service [...] Strictly speaking TNM staging, such as the [place] Joint Committee on Cancer (AJCC) 8th edition, [...] 2024 was evaluated by colorectal surgery at [facility] Dr. Elizabeth who felt that the patient's [...] reaction during cycle 2 after oxaliplatin, thus pyramid lake omitted with cycle 3 and subsequent) Interval [...] N/V, constipation, diarrhea, swelling of herextremities, numbness/tingling. [facility] Medical History Actinic keratosis Encounter for chemotherapy [...] resection August [address] Elizabeth at [facility]. Patient is a low risk stage [...] Cosigner Signature: Date (if applicable) CC: ~ [place] [employer] Work Phone: 1(764) 585-394905-27-2025 Progress [facility] [address] [place] [address] OFFICE VISIT Date of Service: 11/04/24 0943 MR#: [id number] Acct: [id number] Name: TRUDY CALLE Rep #: [id number] : 1960 From: Ceci Montanez ch JUNIOR ELECTRICAL ENGINEER JUNIOR ELECTRICAL ENGINEER-C Age/Sex: 63/F Location: [facility] Status: Signed HPI Subjective Date of Service [...] Strictly speaking TNM staging, such as the [place] Joint Committee on Cancer (AJCC) 8th edition, [...] 2024 was evaluated by colorectal surgery at [facility] Dr. Holden felt that the patient's cancer [...] infusion reaction during cycle 2 afteroxaliplatin, thus pyramid lake omitted with cycle 3 and subsequent) Interval [...] LBM earlier this am, rarely requires Miralax. [facility] Medical History (Updated 11/04/24 @ 10:24 by Ceci Hebert JUNIOR ELECTRICAL ENGINEER, JUNIOR ELECTRICAL ENGINEER-C) Actinic keratosis Encounter for chemotherapy management CINV [...] resection August [address] Elizabeth at [facility]. Patient is a low risk [...] the past year?: No 11/04/24 1024 h JUNIOR ELECTRICAL ENGINEER JUNIOR ELECTRICAL ENGINEER-C> Date _ Ceci Hebert JUNIOR ELECTRICAL ENGINEER JUNIOR ELECTRICAL ENGINEER-C Cosigner Signature: Date (if applicable) CC: ~ [facility]05-27-2025 Progress note Author Ceci Hebert [facility] Services Note Date/Time November 04, 2024 10:24 am [facility] [place] [address] [place] [address] OFFICE VISIT Date of Service: 11/04/24 0943 MR#: [id number] Acct: [id number] Name: ALVATRUDY Rep #: [id number] : 1960 From: Ceci Noela JUNIOR ELECTRICAL ENGINEER JUNIOR ELECTRICAL ENGINEER-C Age/Sex: 63/F Location: [facility] Status: Signed HPI Subjective Date of Service [...] Strictly speaking TNM staging, such as the [place] Joint Committee on Cancer (AJCC) 8th edition, [...] 2024 was evaluated by colorectal surgery at [facility] Dr. Elizabeth who felt that the patient's [...] reaction during cycle 2 after oxaliplatin, thus pyramid lake omitted with cycle 3 and subsequent) Interval [...] LBM earlier this am, rarely requires Miralax. [facility] Medical History (Updated 11/04/24 @ 10:24 by Ceci Hebert JUNIOR ELECTRICAL ENGINEER, JUNIOR ELECTRICAL ENGINEER-C) Actinic keratosis Encounter for chemotherapy management CINV [...] resection August [address] Elizabeth at [facility]. Patient is a low risk stage [...] Cosigner Signature: Date (if applicable) CC: ~ [place] [facility] Work Phone: 1(238) 497-736404-09-2025 Radiology Diagnostic study note [facility] Imaging Services [address] [place] [id number] CXR for Line Placement MR#: [id number] Acct: [id number] Name: TRUDY CALLE Rep #: [id number] : 1960 F 63 From: Yvette Taveras MD PCP: Dr. Antoni Slaughter MD Status: R [facility] Study:CXR for Line Placement Date of Exam: 09/17/24 Exam# [id number] Ordering Dr: Humberto Riley MD EXAM: AP [...] Port-A-Cath. No active cardiopulmonary disease. Reading Location: [place] [address] CC: Dr. Humberto Leigh MD; Dr. Antoni Slaughter MD ~ [facility] P[facility]: Signed [facility]04-09-2025 Consult note Author Kolton alex [facility] Note Date/Time September 17, 2024 7:57 am [facility] Medical Records Department [address] [place] [address] Pre-Anesthesia Evaluation 09/17/24 0757 MR#: [id number] Acct: [id number] Name: TRUDY CALLE Rep #:[id number] : 1960 63 From: Kolton Ness MD PCP: Dr. 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 president of talent management: Anesthesia History - vice president of talent management Hx Hospitalization No 09/11/24 08:24 Any Problems [...] take am of surgery PONV PONV - vice president of talent management: PONV - vice president of talent management Female Yes 09/11/24 08:24 HX of Motion [...] 09/17/24 07:48 Respiratory Assessment Respiratory Assessment - vice president of talent management: Respiratory Tract Infection Hx - vice president of talent management Hx Respiratory Tract Infection No 09/11/24 08:24 STOP Sleep Apnea STOP Sleep Apnea - vice president of talent management: STOP Sleep Apnea - vice president of talent management Hx Hypertension Yes: COTNROLLED WITH MED 09/11/24 [...] Tobacco Use History Tobacco Use History - vice president of talent management: Tobacco Use History - vice president of talent management Tobacco Use Smoking Status Current every day smoker 09/11/24 08:24 Hx Tobacco Use Yes 09/11/24 08:24 Years Smoking Packs Smoked per Day Smoking Cessation Date was within the last 15 years Hx Smoking Cessation Date Hx Smoking Cessation Counseling Hematologic Medial History Hematologic Hx - vice president of talent management: Hematologic Medical Hx - mri special procedures technologist Hx of Blood Transfusion No 09/11/24 08:24 [...] confused, unrespo /Reproduction History /Reproductive History - vice president of talent management: /Reproductive Hx- vice president of talent management Hx Now Gestational Age (in weeks): EDC: Hx Hx Para Hx Section SAB Active Medications Active Medications: Current Medications Generic Name Dose Route Start Last Admin Trade Name Freq PRN Reason Stop Dose Admin Cefazolin Sodium 2 gm/ N/A 20 mls @ 400 mls/hr 09/17/24 09:00 IV 09/17/24 09:02 PREOP ONE [facility] Medical History Encounter for education Regional lymph [...] no additional complaints, except as documented. 09/17/24 0751 <Electronically signed by Kolton eNss MD > Date _ Kolton Ness MD Cosigner Signature: Date CC: ~ Signed [facility] Work Phone: 1(862) 777-436204-09-2025 Consult note [facility] Medical Records Department [address] [place] [address] Anesthesia Postop Eval I 09/17/24 0943 MR#: [id number] Acct: [id number] Name: TRUDY CALLE Jonathan Rep #:[id number] : 1960 63 From: Tristin Phipps CRNA PCP: Dr. Antoni Slaughter MD [place] [facility] [place] Race[place] C Location: [place] [address] Anesthesia: Postop Eval I Current Vital Signs [...] Postop Eval 1 completed: Yes 09/17/24943 y METAL FINISHER> Date _ Tristin Phipps METAL FINISHER Cosigner Signature: Date CC: ~ Signed [facility]04-09-2025 Discharge summary [facility] Medical Records Department [address] [place] [address] Instructions for Home/Discharge Instructions 09/17/24937 MR#: [id number] Acct: [id number] Name: TRUDY CALLE Rep #:[id number] : 1960 63 From: Humberto garner MD PCP: Dr. Antoni Slaughter MD [place] [facility] [place] Instructions Procedure Port-A-Cath Diet Discharge Diet: [...] With: Humberto Leigh MD When: as needed [phone] Test Results: Test results from this visit will be discussed in further detail at your follow- up appointment, if applicable. Discharge Plan Admission Attending Provider: Humberto Leigh Primary Care Provider: Antoni Slaughter Instructions Print Language: Vincentian Discharge Orders/Prescriptions Prescriptions: No Action losartan 100 [...] CC: Dr. Antoni Slaughter MD ~ Signed [facility]04-09-2025 Procedure note [facility] Medical Records Department [address] [place] [address] Operative Report 09/17/24 0937 MR#: [id number] Acct: [id number] Name: TRUDY CALLE Rep #:[id number] : 1960 63 From: Humberto garner MD PCP: Dr. Antoni Slaughter MD Status:R [place] [facility] [place] [address] Operative Report (Standard) Operative Information Date of Procedure: 09/17/24 Pre-Operative Diagnosis: Need for vascular access for chemotherapy Post-Operative Diagnosis: Same Surgery/Procedure Performed: Ultrasound and fluoroscopy guided right chest port placement utilizingright IJ optoelectronics engineer: No Type of Anesthesia: Local MAC RN [...] apply: Implanted device Implanted device details: 8 Cypriot PowerPort Estimated Blood Loss: 5 Specimen collected: [...] x-ray will be obtained. Surgical Findings: 8 Cypriot PowerPort Complications Complications: No Admit VTE Documentation VTE Mechan Device Prophylaxis: SCD's 09/17/24 09 Cosigner Signature (if applicable): CC: Dr. Humberto Leigh MD; Dr. Antoni Slaughter MD~ Signed [facility]04-09-2025 History and physical note [facility] Medical Records Department [address] [place] [address] History & Physical Exam 09/17/24 0834 MR#: [id number] Acct: [id number] Name: TRUDY CALLE Rep #:[id number] : 1960 63 From: Humberto garner MD PCP: Dr. Antoni Slaughter MD Status:R [facility] Location: [place] [address] History and Physical Date of Admission: 09/17/24 [...] Reasons: PORT PLACEMENT Chief Complaint: port placement Category Director Required: No Is patient in pain?: No [...] General: cooperative Orientation: alert and oriented x3 HENID Head: normal to inspection Neck Neck: normal [...] for 5 days. Humberto Leigh MD Pager: [facility] [address] [place] [address], [address] [place] [address] Office: I have seen and examined the patient and reviewed the H&P. THere are no clinicalchanges. 09/17/24 0835 Cosigner Signature (if applicable): CC: Dr. Humberto Leigh MD; Dr. Antoni Slaughter MD~ Signed [facility]04-09-2025 [facility] Medical Records Department [address] [place] [address] History Physical Exam 09/17/24 0834 MR#: [id number] Acct: [id number] Name: TRUDY CALLE Rep #: [id number] : 1960 63 From: Humberto Leigh MD PCP: Dr. Antoni Slaughter MD Status:[facility] Location: [place] [address] History and Physical Date of Admission: 09/17/24 [...] Reasons: PORT PLACEMENT Chief Complaint: port placement Category Director Required: No Is patient in pain?: No [...] No black,tarry stools Bennett (more content not included)...[facility]04-09-2025 Consult note [facility] Medical Records Department [address] [place] [address] Pre-Anesthesia Evaluation 09/17/24 0757 MR#: [id number] Acct: [id number] Name: TRUDY CALLE Rep #:[id number] : 1960 63 From: Kolton Ness MD PCP: Dr. 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 president of talent management: Anesthesia History - vice president of talent management Hx Hospitalization No 09/11/24 08:24 Any Problems [...] take am of surgery PONV PONV - vice president of talent management: PONV - vice president of talent management Female Yes 09/11/24 08:24 HX of Motion [...] 09/17/24 07:48 Respiratory Assessment Respiratory Assessment - vice president of talent management: Respiratory Tract Infection Hx - vice president of talent management Hx Respiratory Tract Infection No 09/11/24 08:24 STOP Sleep Apnea STOP Sleep Apnea - vice president of talent management: STOP Sleep Apnea - vice president of talent management Hx Hypertension Yes: COTNROLLED WITH MED 09/11/24 [...] Tobacco Use History Tobacco Use History - vice president of talent management: Tobacco Use History - vice president of talent management Tobacco Use Smoking Status Current every day smoker 09/11/24 08:24 Hx Tobacco Use Yes 09/11/24 08:24 Years Smoking Packs Smoked per Day Smoking Cessation Date was within the last 15 years Hx Smoking Cessation Date Hx Smoking Cessation Counseling Hematologic Medial History Hematologic Hx - vice president of talent management: Hematologic Medical Hx - mri special procedures technologist Hx of Blood Transfusion No 09/11/24 08:24 [...] confused, unrespo /Reproduction History /Reproductive History - vice president of talent management: /Reproductive Hx- vice president of talent management Hx Now Gestational Age (in weeks): EDC: Hx Hx Para Hx Section SAB Active Medications Active Medications: Current Medications Generic Name Dose Route Start Last Admin Trade Name Freq PRN Reason Stop Dose Admin Cefazolin Sodium 2 gm/ N/A 20 mls @ 400 mls/hr 09/17/24 09:00 IV 09/17/24 09:02 PREOP ONE [facility] Medical History Encounter for education Regional lymph [...] MD Cosigner Signature: Date CC: ~ Signed [facility]04-04-2025 Telephone encounter Note* Telephone Encounter - Luis F Hurtado RN - 09/12/2024 1:39 PM EDT ERAS CORING MACHINE OPERATOR ONE MONTH FOLLOW UP PHONE CALL PHONE [...] RN DATE: 09/12/2024 TIME: 1:39 PM CONTACT #:[phone] [facility]04-04-2025 Miscellaneous Notes* Telephone Encounter - Luis F Hurtado RN - 09/12/2024 1:39 PM EDT ERAS CORING MACHINE OPERATOR ONE MONTH FOLLOW UP PHONE CALL PHONE [...] RN DATE: 09/12/2024 TIME: 1:39 PM CONTACT #:[phone] documented in [facility] encounter[facility] NoteHNO ID: [id number] Author: VIBHA FLORES MD Service: ? Author Type: Physician Type: Progress Notes Filed: 08/29/2024 13:02 Note Text: Vibha Flores M.D. Colon AND Rectal Surgery 1 [facility], [facility] [address] [place] [address] CC: rectosigmoid cancer HPI: Trudy Calle is [...] Tumor Size Greatest dimens (more content not included)...[facility]03-21-2025 History of Present illness Narrative* Vibha Flores MD - 08/29/2024 12:56 PM EDT Images from the original note were not included. Vibha Flores M.D. Colon & Rectal Surgery 1 [facility], [address] [place] [phone] CC: rectosigmoid cancer HPI: Trudy Calle is [...] This office note has been created using HuTerra, a speech recognition software program, and may contain errors including punctuation, grammar, spelling, gender, and inappropriate words or phrases that pertain to the sytem. 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 This document will become part of the patient's medical record.[facility]03-07-2025 NoteHNO ID: [id number] Author: GAYLE FOUNTAIN LSW Service: Care Management Author Type: Compensation Administrator Type: Care Mgt Progress Note Filed: 08/15/2024 09:35 Note Text: CARE MANAGEMENT PROGRESS NOTE SERVICE DATE: 08/15/2024 SERVICE TIME: 9:35 AM LOS: 2 days IMM Follow Up Copy Given: Yes Copy given to:: Patient Method: In Person Verbal confirmation SIGNATURE: DINA Crane PATIENT NAME: Trudy Calle DATE: August 15, 2024 TIME: 9:35 [facility]-2025 NoteHNO ID: [id number] Author: GAYLE FOUNTAIN LSW Service: Care Management Author Type: Compensation Administrator Type: Care Mgt Initial Assessment Filed: 08/15/2024 09:35 Note Text: CARE MANAGEMENT: ASSESSMENT AND DISCHARGE PLAN SERVICE DATE: August 15, 2024 SERVICE TIME: 9:30 AM PCP: Antoni Slaughter MD Primary Contact: Extended Emergency Contact Information Primary Emergency Contact: Chiquita Encinas Mobile Relation: Sister Secondary Emergency Contact: Xuan Calle Address: [address] [place] [address] Mobile Relation: Daughter Admission Status: Inpatient Insurance Provider: [employer] MED[employer]ARE HMO Discharge Planning requested by: Per Department Practice Potential Transition Plans Home Advance Directives Current Advance Directive: None Wireless Sales Representative Attempted to Assist with AD Completion: Yes [...] Be able to go home, General wellness Nichols of Choice Explained: Nichols of Choice Given: No Reason Not Given: [...] Calle DATE: August 15, 2024 TIME: 9:30 [facility]03-07-2025 NoteHNO ID: [id number] Author: VIBHA FLORES MD Service: General Surgery [...] questions or concerns Mon-Fri 6a-5p please page [phone]. After 5pm and on Weekends and Holidays, please page [phone]. SUBJECTIVE: NAEON. Pt is POD2 for Robotic-assisted [...] 08/15/24 0659 08/15/24699 - 08/16/24 0659 Shift 2311-0904 8651-3721 8209-6153 24 Hour Total 4966-8830 1420-7450 6177-6377 24 Hour Total INTAKE PO 120 240 360 PO 120 240 360 Shift Total 120 240 360 OUTPUT Urine 300 457 677 6888 Void (ml) 150 070 077 9027 Urine Not Saved. 1 x 1 x Output ([REMOVED] Indwelling Urinary Catheter 08/13/24 1530 [place] 16 Fr 08/14/24 0901) 150 150 # of BMs Number of BMs 2 x 1 x 3 x Shift Total 300 452 151 2919 Weight (kg) 98 98 98 98 98 [...] tomorrow Discussed with attending: (more content not included)...[facility]03-06-2025 NoteHNO ID: [id number] Author: VIBHA FLORES MD Service: General Surgery [...] questions or concerns Mon-Sun 6a-5p please page [phone]. After 5pm and on Weekends and Holidays, please page [phone]. SUBJECTIVE: NAEON. Pt is POD1 for Robotic-assisted [...] 08/13/24699 - 08/14/2465808/14/24699 - 08/15/24 0659 Shift 7015-8463 1317-0923 7383-2414 24 Hour Total 8821-0576 9259-7827 9326-6502 24 Hour Total INTAKE IV 2160 2160 [...] upon bowel function - (more content not included)...[facility]03-05-2025 Note Ancillary testing for mismatch repair protein has been requested and will be reported when available. Turbine Technician slides were reviewed in consultation with Dr. Julian Carrera who concurs.[facility]healthComment on above: Order Comment: Specimen Type: TISSUE SPECIMENOrdering Facility: [facility] Address: [address] [place], [place] [address]Performed By: #### [id number] ####[facility] LABORATORYCLIA [id number] [address] OF [id number] NoteHNO ID: [id number] Author: YLUIANA OGLESBY APRN.METAL FINISHER Service: Nursing Author Type: Nurse Manager Wound Type: Anesthesia Procedure Notes Filed: 08/13/2024 15:46 Note Text: ANESTHESIOLOGY PROCEDURE NOTE Airway General Information Procedure Start Time/Medication Administration: 08/13/2024 3:13 PM Procedure End Time: 08/13/2024 3:13 PM Patient location during procedure: OR Timeout Performed Pre-procedure: timeout performed Consent Obtained: Yes Patient identity confirmed: arm band Staffing METAL FINISHER: Yuliana Oglesby APRN.METAL FINISHER Performed by: NAKITA Indications and Patient Condition [...] August 13, 2024 TIME: 3:46 PM CSN: [id number]025 NoteHNO ID: [id number] Author: MERLIN ESQUIVEL MD Service: Anesthesiology Author [...] August 13, 2024 TIME: 3:26 PM CSN: [id number]025 NoteHNO ID: [id number] Author: OSMEL MAYES APRN.FLAKO Service: ? Author [...] prior to surgery and avoid morning of surgeryLincolnhealth02-27-2025 History of Present illness Narrative* Osmel Mayes APRN.TAX ADJUSTER - 08/07/2024 3:02 PM EST CC AWILDA [...] avoid morning of surgery documented in this encounterKnox [facility]02-27-2025 Instructions* Patient Instructions* Osmel Mayes APRN.CNP - 08/07/2024 1:56 PM EST PATIENT PREOPERATIVE INSTRUCTIONS Vibha Flores MD has scheduled you for your procedure at this surgery center: [facility]: [phone], [address] [place] [id number] Please read below carefully for your personalized [...] - Stop Vitamin E, fish oil, Ginko, [place]'s Wort, flax seed oil, multivitamins, CBD oil, [...] Advance Directive, please fax a copy to [phone] or email to for it to be [...] surgery Osmel Mayes APRN.FLAKO documented in this encounterKnox [facility] Hospital02-27-2025 History and physical note * Osmel [...] Negative for: dysuria, hematuria and renal failure. PICK PACK WORKER: Negative for: vaginal bleeding. Endocrine: Positive for: [...] or any previous visit (from the past 48404 hours). The Following Tests/Procedures Have Been Initiated: No labs ordered per surgeon in the medical center CBC BMP T&S Con ABO ordered per WASH TANK TENDER Assessment/Plan Diagnosis: Rectal cancer (HCC) [C20] PLAN Planned Procedure: Procedure(s) with comments: XI ROBOTIC LAPAROSCOPIC RESECTION COLON LOW ANTERIOR W/ COLORECTAL ANASTOMOSIS/ POSSIBLE STOMA/ ERAS/ W BLOCK (N/A) - ERAS WITH BLOCK I spent a total of 40 minutes on the date of the service which included preparing to see the patient, lccv-jg-mtry patient care, completing clinical documentation, obtaining and/or [...] 07, 2024 TIME: 12:27 PM PAGER/CONTACT #: [facility]02-27-2025 History and physical note* Osmel Mayes [...] 11/06/2024 Hospital of Planned Surgery or Procedure:: [place] Status of surgery/procedure:: Scheduled Date of [...] Negative for: dysuria, hematuria and renal failure. PICK PACK WORKER: Negative for: vaginal bleeding. Endocrine: Positive for: [...] Prior to Admission medications as of 08/07/24 8335 Medication Sig Last Dose Taking levothyroxine 150 [...] or any previous visit (from the past 47212 hours). The Following Tests/Procedures Have Been Initiated: No labs ordered per surgeon in epic CBC BMP T&S Con ABO ordered per WASH TANK TENDER Assessment/Plan Diagnosis: Rectal cancer (HCC) [C20] PLAN Planned Procedure: Procedure(s) with comments: XI ROBOTIC LAPAROSCOPIC RESECTION COLON LOW ANTERIOR W/ COLORECTAL ANASTOMOSIS/ POSSIBLE STOMA/ ERAS/ W BLOCK (N/A) - ERAS WITH BLOCK I spent a total of 40 minutes on the date of the service which included preparing to see the patient, nugm-pt-vtab patient care, completing clinical documentation, obtaining and/or [...] 12:27 PM PAGER/CONTACT #: documented in this encounterKnox [facility] Hospital02-27-2025 History of Present illness Narrative* Amelia [...] 1:46 PM CONTACT#: [id number] documented in this encounterKnox Community Hospital02-27-2025 NoteHNO ID: [id number] Author: AEMLIA BHAT RN Service: ? Author Type: Registered [...] 07, 2024 TIME: 1:46 PM CONTACT#: [id number] [facility]02-27-2025 History of Present illness Narrative* Luis F Hurtado RN - 08/07/2024 12:35 PM EST GENERAL SURGERY/ERAS CORING MACHINE OPERATOR PREOPERATIVE EDUCATION Date: 08/07/2024 Time: 12:30 PM Education provide to: patient and sister Lives with: Alone Mobility: Independent ERAS protocol instructions given with good understanding. Written instructions given to patient. Encouraged to call with any questions. SIGNATURE: Luis F Hurtado RN PATIENT NAME: Trudy Calle DATE: August 07, 2024 TIME: 2:22 PM PAGER/CONTACT #: [phone] documented in this encounterKnox Community Hospital02-27-2025 NoteHNO ID: [id number] Author: LUIS F HURTADO RN Service: ? Author Type: Registered Nurse Type: Progress Notes Filed: 08/07/2024 14:23 Note Text: GENERAL SURGERY/ERAS CORING MACHINE OPERATOR PREOPERATIVE EDUCATION Date: 08/07/2024 Time: 12:30 PM Education provide to: patient and sister Lives with: Alone Mobility: Independent ERAS protocol instructions given with good understanding. Written instructions given to patient. Encouraged to call with any questions. SIGNATURE: Luis F Hurtado RN PATIENT NAME: Trudy Calle DATE: August 07, 2024 TIME: 2:22 PM PAGER/CONTACT #: [phone] NoteEducation ([facility]) TRUDY CALLE ([id number]) 1960 F Date Time Provider Department 08/07/24 LUIS F HURTADO [facility] Reason for Visit: Patient Education [91] During your visit today, we recorded the following information about you: Allergies As of Date: 08/07/2024 (No Known Allergies) Date Reviewed: 08/07/2024 Reviewed by: Osmel Mayes APRN.TAX ADJUSTER - Fully Assessed Prescriptions as of 08/07/2024 [...] Encounter Status:Closed by LUIS F HURTADO on 08/07/24[facility] 08-04-2024 Evaluation note* Diagnosis On[place] Date Resolution [...] present acute November 04, 2024 8 :43am [facility] Work Phone: 1(742) 280-721802-24-2025 Evaluation note* Diagnosis [place] Date Resolution Status [...] 8 :39am Colorectal cancer chronic November 8:39am [facility] Work Phone: 1(230) 863-756202-24-2025 Evaluation note* Diagnosis [place] Date Resolution Status [...] 8:36am Colorectal cancer chronic December 012024 8:36am [facility] Work Phone: 1(605) 314-421602-21-2025 NoteHNO ID: [id number] Author: VIBHA FLORES MD Service: ? Author Type: Physician Type: Progress Notes Filed: 08/01/2024 12:43 Note Text: Vibha Flores M.D. Colon AND Rectal Surgery 1 [facility], [address] [place] [phone] CC: rectosigmoid cancer HPI: Trudy Calle is [...] need adjuvant chemotherapy. Will send to Dr. Mooeny post-op if indicated. - metroNIDAZOLE (FLAGYL) 500 [...] This office note has been created using HuTerra, a speech recognition software program, and may contain errors including punctuation, grammar, spelling, gender, and inappropriate words or phrases that pertain to the sytem.[facility]02-21-2025 History of Present illness Narrative* Vibha Flores MD - 08/01/2024 10:55 AM EST Images from the original note were not included. Vibha Flores M.D. Colon & Rectal Surgery [address] [facility], [address] [place] [address] CC: rectosigmoid cancer HPI: Trudy Calle is [...] This office note has been created using HuTerra, a speech recognition software program, and may contain errors including punctuation, grammar, spelling, gender, and inappropriate words or phrases that pertain to the sytem. documented in this encounterKnox Community Hospital02-07-2025 NoteHNO ID: [id number] Author: VIBHA FLORES MD Service: ? Author Type: Physician Type: Progress Notes Filed: 07/18/2024 12:37 Note Text: Vibha Flores M.D. Colon AND Rectal Surgery [address] [facility], [address] [place] [phone] CC: rectal cancer HPI: Trudy Calle is a 63 year old White female who was referred by MERON Page with [facility] for newly diagnosed rectal adenocarcinoma. My [...] Patient was examined in knee-chest with a hotel maintenance worker present. Externally there were small skin tags. [...] for staging of her rectal cancer at [place]. We will call to obtain the results of her imaging. We will also get the images uploaded to our system. Patient also states that she had a CEA drawn at [place] as well. We also will request the [...] This office note has been created using HuTerra, a speech recognition software program, and may contain errors including punctuation, grammar, spelling, gender, (more content not included)...[facility]02-07-2025 History of Present illness Narrative* Vibha Flores MD - 07/18/2024 8:31 AM EST Images from the original note were not included. Vibha Flores M.D. Colon & Rectal Surgery [address] [facility], [address] [place] [phone] CC: rectal cancer HPI: Trudy Calle is a 63 year old White female who was referred by MERON Page with [facility] for newly diagnosed rectal adenocarcinoma. My [...] Patient was examined in knee-chest with a hotel maintenance worker present. Externally there were small skin tags. [...] for staging of her rectal cancer at [place]. We will call to obtain the results of her imaging. We will also get the images uploaded to our system. Patient also states that she had a CEA drawn at [place] as well. We also will request the [...] This office note has been created using HuTerra, a speech recognition software program, and may contain errors including punctuation, grammar, spelling, gender, and inappropriate words or phrases that pertain to the sytem. documented in this encounterKnox [facility] Hospital01-16-2025 [facility] Medical Records Department [address] [place] [address] History Physical Exam 06/26/24 1003 MR#: [id number] Acct: [id number] Name: TRUDY CALLE Rep #: [id number] : 1960 63 From: Rivera Townsend DO PCP: Dr. Antoni Slaughter MD [place] [facility] [place]: [place] [address] HPI - General General Date of Admission: 06/26/24 Date of Service: 06/26/24 HPI Narrative TRUDY CALLE, is a 63 F who presentsChief Complaint: constipation Details: TRUDY CALLE, is a 63 F who presents to the office today for establishment with [facility]. Pt daniel been struggling with constipation for [...] abd pain, n/v, heartburn, diarrhea or melena. [facility] Medical History Wears glasses Smoker History of [...] MD; Rivera Friend, (more content not included)... [facility]01-07-2025 Evaluation note* Diagnosis [place] Date Resolution [...] 092024 2:56pm [facility] lymph node metastas is present acute September 09, 2024 2:56pm [facility] Work Phone: 1(325) 399-691211-20-2024 Evaluation note* Diagnosis [place] Date Resolution Status [...] July 8:00am Hypothyroidism chronic July 132024 8:00am [facility] Work Phone: Consult note Author Trisitn Phipps [facility] Note Date/Time September 17, 2024 9:44 am [facility] Medical Records Department [address] [place] [address] Anesthesia Postop Eval I 09/17/2443 MR#: [id number] Acct: [id number] Name: TRUDY CALLE Rep #:[id number] : 1960 63 From: Tristin Phipps CRNA PCP: Dr. Antoni Slaughter MD Status:R EG SDC Y Race: C Location: [place] [address] Anesthesia: Postop Eval I Current Vital Signs [...] CRNA Cosigner Signature: Date CC: ~ Signed [facility] Work Phone: Discharge summary Author Humberto Leigh [facility] Note Date/Time September 17, 2024 9:38 am [facility] Medical Records Department [address] [place] [address] Instructions for Home/Discharge Instructions 09/17/24937 MR#: [id number] Acct: [id number] Name: TRUDY CALLE Rep #:[id number] : 1960 63 From: Humberto garner MD PCP: Dr. Antoni Slaughter MD [place] [facility] [place] Procedure Port-A-Cath Diet Discharge Diet: [...] With: Humberto Leigh MD When: as needed [phone] Test Results: Test results from this visit will be discussed in further detail at your follow- up appointment, if applicable. Discharge Plan Admission Attending Provider: Humberto Leigh Primary Care Provider: Antoni Slaughter Instructions Print Language: Vincentian Discharge Orders/Prescriptions Prescriptions: No Action losartan 100 [...] CC: Dr. Antoni Slaughter MD ~ Signed [facility] Work Phone: Evaluation note* Diagnosis Onset Date Resolution Status Hypertension chronic Hypothyroidism [facility] Work Phone: Evaluation note* Diagnosis Onset Date Resolution Status Hypertension chronic Hypothyroidism chronic Hypertension chronic Hypothyroidism [facility] Work Phone: Evaluation note* Diagnosis Rectal cancer (HCC)- Primary Malignant neoplasm of rectum [facility] Diagnosis Rectal cancer (HCC)- Primary Malignant neoplasm of rectum Rectal cancer (HCC) Malignant neoplasm of rectum documented in this encounter [facility] note* Diagnosis Rectal cancer (HCC)- Primary Malignant neoplasm of rectum Rectal cancer (HCC) Malignant neoplasm of rectum documented in this encounter [facility] note* Diagnosis Pre-op exam- Primary Preoperative examination, [...] at today's visit. [facility] Diagnosis Pre-op exam- Primary Preoperative examination, unspecified Rectal cancer (HCC) Malignant neoplasm of rectum Hyperlipidemia, unspecified hyperlipidemia type Primary hypertension Unspecified essential hypertension Hypothyroidism, unspecified type PVD (peripheral vascular disease) (HCC) Peripheral vascular disease, unspecified PAD (peripheral artery disease) (HCC) Peripheral vascular disease, unspecified Nicotine use Other specified counseling- Primary Rectal cancer (HCC) Malignant neoplasm of rectum [facility] Diagnosis Pre-op exam- Primary Preoperative examination, unspecified Rectal cancer (HCC) Malignant neoplasm of rectum Hyperlipidemia, unspecified hyperlipidemia type Primary hypertension Unspecified essential hypertension Hypothyroidism, unspecified type PVD (peripheral vascular disease) (HCC) Peripheral vascular disease, unspecified PAD (peripheral artery disease) (HCC) Peripheral vascular disease, unspecified Nicotine use Malignant neoplasm of rectosigmoid junction (HCC) Malignant neoplasm of rectosigmoid junction [facility] Author Humberto Leigh [facility] Note Date/Time September 17, 2024 8:35 am [facility] Medical Records Department [address] [place] [address] History & Physical Exam 09/17/24 0834 MR#: [id number] Acct: [id number] Name: TRUDY CALLE Rep #:[id number] : [id number] 63 From: Humberto garner MD PCP: Dr. Antoni Slaughter MD Status:[facility] Location: [place] [address] History and Physical Date of Admission: 09/17/24 [...] Reasons: PORT PLACEMENT Chief Complaint: port placement Category Director Required: No Is patient in pain?: No [...] for 5 days. Humberto Leigh MD Pager: [facility] [address] [place] [address], [address] [place] [address] Office: I have seen and examined the patient and reviewed the H&P. THere are no clinicalchanges. 09/17/24 0835 <Electronically signed by Humberto Leigh MD> Cosigner Signature (if applicable): CC: Dr. Humberto Leigh MD; Dr. Antoni Slaughter MD~ Signed [facility] Work Phone: Summary Purpose Family History [...] Will No June 25 11:12am Power of Millinery Worker No June 25, 2024 11:12am Advance Directive Response Recorded Date/ Time Living Will No June 25 12:12pm Do you have a Healthcare Power of Millinery Worker? No June 25, 2024 12:12pm Living Will No September 11, 2024 8:24am Do you have a Healthcare Power of Millinery Worker? No September 11, 2024 8:24am Advance Directive Response Recorded Date/ Time Living Will No October 22, 2024 1 1:12am Do you have a Healthcare Power of Millinery Worker? No October 22, 2024 11:12am Advance Directives No October 22 11:12am Living Will No September 11, 2024 8:24am Do you have a Healthcare Power of Millinery Worker? No September 11, 2024 8:24am Advance Directive Response Recorded Date/ Time Living Will No November 04, 2024 1 0:57am Do you have a Healthcare Power of Millinery Worker? No November 04, 2024 10:57am Advance Directives No November 04 10:57am Living Will No September 11, 2024 8:24am Do you have a Healthcare Power of Millinery Worker? No September 11, 2024 8:24am Advance Directive Response Recorded Date/ Time Living Will No November 06, 2024 1 2:04pm Do you have a Healthcare Power of Millinery Worker? No November 06, 2024 12:04pm Advance Directives No November 06 12:04pm Living Will No September 11, 2024 8:24am Do you have a Healthcare Power of Millinery Worker? No September 11, 2024 8:24am Advance Directive Response Recorded Date/ Time Living Will No November 19, 2024 10:09am Do you have a Healthcare Power of Millinery Worker? No November 19, 2024 10:09am Advance Directives No November 19 10:09am Living Will No September 11, 2024 8:24am Do you have a Healthcare Power of Millinery Worker? No September 11, 2024 8:24am Chief Complaint [...] 2024 8:39a m Encounter for chemotherapy management [facility] 2024 8:39am Regional lymph node metastasis present [facility] 2024 8:39am Colorectal cancer November 17, 2024 8:39a m Regional lymph node metastasis present [facility] 2024 8:36am Colorectal cancer December 01, 2024 8:36 am Reason for Referral Specialty Diagnoses / Procedures Referred By Contac t Referred To Contact Radiation Oncology Diagnoses Rectal cancer (HCC) Procedures RAD/ONC CONSULT OFFICE/OUTPATIENT [facility] 60 MINUTES Vibha Flores MD [address] [place] [address] Referral ID Status Reason Start Date Expiration Date Visits Requested Visits Authorized [id number] Pending Review PCP Requested Referral 07/18/2024 07/18/2025 1 1 Specialty Diagnoses / Procedures Referred By Contac t Referred To Contact Oncology Diagnoses Rectal cancer (HCC) Procedures CONSULT TO ONCOLOGY OFFICE/OUTPATIENT [facility] 60 MINUTES Vibha Flores MD [address] [place] [address] Referral ID Status Reason Start Date Expiration Date Visits Requested Visits Authorized [id number] Pending Review PCP Requested Referral 07/18/2024 07/18/2025 1 1 Additional Source Comments INFORMATION SOURCE (unrecogn ized section and content) DATE CREATED AUTHOR 08/13/2021 [facility] DATE CREATED AUTHOR AUTHOR'S ORGANIZ ATION 09/15/2024 [facility] DATE CREATED AUTHOR AUTHOR'S ORGANIZ ATION 12/04/2024 [facility] Care Teams (unrecognized sec tion and content) Team Status: Active Member Role Status Dates Dr. Antoni Slaughter MD Primary Care Provider Active Team Status: Inactive Member Role Status Dates Gideon Bowman NP, JUNIOR ELECTRICAL ENGINEER-C Attending Provider Active Dr. Antoni Slaughter MD Primary Care Provider, Refer ring Provider Active Team Status: Inactive Member Role Status Dates Dr. Antoni Slaughter MD Primary Care Provider Active Gideon Bowman NP, JUNIOR ELECTRICAL ENGINEER-C Attending Provider Active Team Status: Inactive Member Role Status Dates Dr. Antoni Slaughter MD Primary Care Provider, Refer ring Provider Active Gideon Bowman NP, JUNIOR ELECTRICAL ENGINEER-C Attending Provider Active Burial Needs Salesperson Relationship Specialty Start Date End Date nAtoni Slaughter MD [address] [facility] [address] [place] [address] PCP - General Internal Medicine 07/18/24 Burial Needs Salesperson Relationship Specialty Start Date End Date Antoni Slaughter MD [address] [facility] [address] [place] [address] PCP - General Internal Medicine 07/18/24 Antoni Leach [address] [place], [place] [id number] Hematology/Oncology 07/29/24 Burial Needs Salesperson Relationship Specialty Start Date End Date Antoni Slaughter MD [address] [facility] [address] [place] [address] PCP - General Internal Medicine 07/18/24 Antoni Leach [address] [place] [address] Hematology/Oncology 07/29/24 Burial Needs Salesperson Relationship Specialty Start Date End Date Antoni Slaughter MD [address] [facility] [address] [place] [address] PCP - General Internal Medicine 07/18/24 Antoni Leach [address] [place] [address] Hematology/Oncology 07/29/24 Burial Needs Salesperson Relationship Specialty Start Date End Date Antoni Slaughter MD [address] [facility] [address] [place] [address] PCP - General Internal Medicine 07/18/24 Antoni Leach [address] [place] [address] Hematology/Oncology 07/29/24 Burial Needs Salesperson Relationship Specialty Start Date End Date Antoni Slaughter MD [address] [facility] [address] [place] [address] PCP - General Internal Medicine 07/18/24 Antoni Leach [address] [place] [address] Hematology/Oncology 07/29/24 Burial Needs Salesperson Relationship Specialty Start Date End Date Antoni Slaughter MD [address] [place] [phone] PCP - General Internal Medicine 07/18/24 Antoni Leach [address] [place], [place] [address] Hematology/Oncology 07/29/24 Team Status: Inactive Member Role [...] August 04, 2024 End: August 04, 2024 Burial Needs Salesperson Relationship Specialty Start Date End Date Antoni Slaughter MD [address] [place] [address] PCP - General Internal Medicine 07/18/24 Antoni Leach [address] [place] [address] Hematology/Oncology 07/29/24 Team Status: Inactive Member Role [...] 2024 End: September 09, 2024 Ceci Hebert JUNIOR ELECTRICAL ENGINEER, JUNIOR ELECTRICAL ENGINEER-C Attending Provider Active Start: September 09, 2024 [...] Status: Inactive Member Role Status Dates Dr. Anotni Slaughter MD Primary Care Provider Active Start: [...] 2024 End: September 29, 2024 Ceci Hebert JUNIOR ELECTRICAL ENGINEER, JUNIOR ELECTRICAL ENGINEER-C Attending Provider Active Start: September 29, 2024 [...] 2024 End: October 20, 2024 Ceci Hebert JUNIOR ELECTRICAL ENGINEER, JUNIOR ELECTRICAL ENGINEER-C Attending Provider Active Start: October 20, 2024 [...] 2024 End: November 04, 2024 Ceci Hebert JUNIOR ELECTRICAL ENGINEER, JUNIOR ELECTRICAL ENGINEER-C Attending Provider Active Start: November 04, 2024 [...] 2024 End: November 17, 2024 Ceci Hebert JUNIOR ELECTRICAL ENGINEER, JUNIOR ELECTRICAL ENGINEER-C Attending Provider Active Start: November 17, 2024 [...] or prosecute any alcohol or drug abuse patient.[facility] the event this information is protected by the Federal Confidentiality of Alcohol and Drug Abuse Patient Records regulations: The Federal rules restrict any use of the information to criminally investigate or prosecute any alcohol or drug abuse patient.[facility] the event this information is protected by the Federal Confidentiality of Alcohol and Drug Abuse Patient Records regulations: The Federal rules restrict any use of the information to criminally investigate or prosecute any alcohol or drug abuse patient.[facility] the event this information is protected by the Federal Confidentiality of Alcohol and Drug Abuse Patient Records regulations: The Federal rules restrict any use of the information to criminally investigate or prosecute any alcohol or drug abuse patient.[facility] the event this information is protected by the Federal Confidentiality of Alcohol and Drug Abuse Patient Records regulations: The Federal rules restrict any use of the information to criminally investigate or prosecute any alcohol or drug abuse patient.[facility] the event this information is protected by the Federal Confidentiality of Alcohol and Drug Abuse Patient Records regulations: The Federal rules restrict any use of the information to criminally investigate or prosecute any alcohol or drug abuse patient.[facility] the event this information is protected by the Federal Confidentiality of Alcohol and Drug Abuse Patient Records regulations: The Federal rules restrict any use of the information to criminally investigate or prosecute any alcohol or drug abuse patient.[facility] the event this information is protected by the Federal Confidentiality of Alcohol and Drug Abuse Patient Records regulations: The Federal rules restrict any use of the information to criminally investigate or prosecute any alcohol or drug abuse patient.[facility] the event this information is protected by the Federal Confidentiality of Alcohol and Drug Abuse Patient Records regulations: The Federal rules restrict any use of the information to criminally investigate or prosecute any alcohol or drug abuse patient.[facility] Reason for Visit (unrecogniz ed section and content) Reason Comments New Patient Specialty Diagnoses / Procedures Referred By Contac t Referred To Contact General Surgery / GENERAL SURGERY Diagnoses Malignant neoplasm of rectum rectal mass Procedures OFFICE/OUTPATIENT NEW MODERATE MDM 45 MINUTES OFFICE/OUTPATIENT ESTABLISHED MOD MDM 30 MIN NEW PATIENT Self Vibha Flores MD [address] [place] [id number] Referral ID Status Reason Start Date Expiration Date V isits Requested Visits Authorized [id number] Authorized 07/18/2024 06/10/2025 99 99 Reason Comments discuss surgery Specialty Diagnoses / Procedures Referred By Contpat t Referred To Contact General Surgery / GENERAL SURGERY Diagnoses Malignant neoplasm of rectum rectal mass Procedures OFFICE/OUTPATIENT NEW MODERATE MDM 45 MINUTES OFFICE/OUTPATIENT ESTABLISHED MOD MDM 30 MIN NEW PATIENT Self Vibha Flores MD [address] [place] [id number] Phone: tel: fax:[phone] Reason Comments Patient Education Reason Comments Stoma Markings Marked RUQ, LUQ only Reason [place] Date Comments [facility] Follow Up 08/19/2024 Reason Comments Post Op XI ROBOTIC LAPAROSCO PIC RESECTION COLON LOW ANTERIOR Reason Onset Date Comments [facility] Follow Up 09/12/2024 FOR RECORDS [...] BE BASED ON THE PRIMARY CLINICAL RECORDS. [employer] provides no warranty or guarantee of the accuracy or completeness of information in this document.
== END | disposition home or self-care (01) ==
LOC: CT 13:18
PROVIDERS: PCP Internal Medicine; Referring Provider Internal Medicine Hematology & Oncology; Visit Provider Internal Medicine Hematology & Oncology
DX: C19 Malignant neoplasm of rectosigmoid junction (principal)
CPT/HCPCS: 71260; 74177; Q9967; A4216

== ENCOUNTER → 2025-01-20 | Outpatient (CLI) | payer MEDICARE, SELFPAY ==
--- OUTSIDE RECORDS SUMMARY | 2025-01-20 07:21 | XMS RPT_ITS | CCD ---
Author Organization [facility] CliniSyoh Care Team Providers Care Contract Programmer Name Role Phone MORRO ALVARADO DPKylee Attending [...] Consulting Unavailable PROVIDER, UNKNOWN Consulting Unavailable Colby PLANT PHYSIOLOGY TEACHER, PLANT PHYSIOLOGY TEACHER-C Gideon Attending Provider [phone] Dr. Antoni Slaughter Primary Care Provider [phone] Dr. Antoni Slaughter Referring Provider [phone] Colby PLANT PHYSIOLOGY TEACHER, PLANT PHYSIOLOGY TEACHER-C Gideon Attending Provider [phone] Dr. Antoni [...] Dr. Poole Referring Provider Joshua LOERA, Dr. Burrsi Attending Provider Joshua LOERA, Dr. Burris Referring Provider Kasandra LOERA, Dr. Poole Primary Care Provider Joshua LOERA, Dr. Burris Attending Provider Joshua LOERA, Dr. Burris Referring Provider Joshua LOERA, Dr. Burris Attending Provider Joshua LOERA, Dr. Burris Referring Provider Kasandra LOERA, Dr. Poole Primary Care Provider Kasandra LOERA, Dr. Poole Referring Provider [phone] Kasandra LOERA, Dr. Poole Attending Provider [phone] Joshua LOERA, Dr. Burris Attending Provider Joshua LOERA, Dr. Burris Referring Provider Haylee LOERA, Dr. Corrales Referring Provider Kasandra LOERA, Dr. Poole Primary Care Provider Kasandra LOERA, Dr. Poole Referring Provider [phone] Lu LOERA, Dr. Paul Attending Provider Haylee LOERA, Dr. Corrales Attending Provider Emilee MATOS-CCeci Attending Provider Joshua LOERA, Dr. Burris Attending Provider Joshua LOERA, Dr. Burris Referring Provider Ceci Hebert NP Attending Unavailable Oleghe, Efewongbe Referring Unavailable Oleghe, Efewongbe Primary Care Unavailable Oleghe, Efewongbe Primary Care Unavailable Oleghe, Efewongbe Referring Unavailable Antoni Leach Attending Unavailable Sofia Cuadra Referring Unavailable Dayton Lewis Attending Unavailable Oleghe, Efewongbe Primary Care Unavailable Oleghe, Efewongbe Referring Unavailable EricusAntoni Attending Unavailable Oleghe, Efewongbe Primary Care Unavailable Friend, Rivera Attending Unavailable Oleghe, Efewongbe Referring Unavailable Oleghe, Efewongbe Primary Care Unavailable Dayton Lewis Attending Unavailable Dayton Lewis Referring Unavailable Oleghe, Efewongbe Primary Care Unavailable Humberto Leigh Consulting Unavailable Oleghe, Efewongbe Referring Unavailable Oleghe, Efewongbe Primary Care Unavailable Humberto Leigh Attending Unavailable Friend, Rivera Consulting Unavailable Friend, Rivera Attending Unavailable Oleghe, Efewongbe Referring Unavailable Oleghe, Efewongbe Primary Care Unavailable Oleghe, Efewongbe Referring Unavailable Ericus Mansour Attending Unavailable Oleghe, Efewongbe Primary Care Unavailable Oleghe, Efewongbe Referring Unavailable Antoni Leach Attending Unavailable Oleghe, Efewongbe Primary Care Unavailable Emilee PLANT PHYSIOLOGY TEACHER, Ceci Attending Unavailable Oleghe, Efewongbe Referring Unavailable Oleghe, Efewongbe Primary Care Unavailable Oleghe, Efewongbe Referring Unavailable Oleghe, Efewongbe Attending Unavailable Oleghe, Efewongbe Primary Care Unavailable Emilee PLANT PHYSIOLOGY TEACHER, Ceci Attending Unavailable Oleghe, Efewongbe Referring Unavailable Oleghe, Efewongbe Primary Care Unavailable Haylee Mansour Referring Unavailable IsckarAntoni mcginnis Attending Unavailable Oleghe, Efewongbe Primary Care Unavailable Sofia Cuadra Attending Unavailable Sofia Cuadra Referring Unavailable Oleghe, Efewongbe Primary Care Unavailable Dayton Lewis Attending Unavailable Dayton Lewis Referring Unavailable Oleghe, Efewongbe Primary Care Unavailable Emilee PLANT PHYSIOLOGY TEACHER, Ceci Attending Unavailable Oleghe, Efewongbe Referring Unavailable Oleghe, Efewongbe Primary Care Unavailable Sofia Cuadra Attending Unavailable Oleghe, Efewongbe Referring Unavailable Oleghe, Efewongbe Primary Care Unavailable Oleghe, Efewongbe Attending Unavailable Oleghe, Efewongbe Referring Unavailable Oleghe, Efewongbe Primary Care Unavailable Oleghe, Efewongbe Attending Unavailable Oleghe, Efewongbe Referring Unavailable Oleghe, Efewongbe Primary Care Unavailable Isckarus Mansour Referring Unavailable Antoni Leach Attending Unavailable Oleghe, Efewongbe Primary Care Unavailable Oleghe, Efewongbe Referring Unavailable Oleghe, Efewongbe Primary Care Unavailable Humberto Leigh Attending Unavailable Ceci Hebert NP Attending Unavailable Oleghe, Efewongbe Referring Unavailable Oleghe, Efewongbe Primary Care Unavailable Oleghe, Efewongbe Referring Unavailable Oleghe, Efewongbe Primary Care Unavailable Humberto Leigh Attending Unavailable Oleghe, Efewongbe Referring Unavailable Oleghe, Efewongbe Primary Care Unavailable Antoni Leach Attending Unavailable Oleghe, Efewongbe Attending Unavailable Oleghe, Efewongbe Referring Unavailable Oleghe, Efewongbe Primary Care Unavailable Sofia Cuadra Attending Unavailable Oleghe, Efewongbe Referring Unavailable Oleghe, Efewongbe Primary Care Unavailable Oleghe, Efewongbe Referring Unavailable Antoni Leach Attending Unavailable Oleghe, Efewongbe Primary Care Unavailable Allergies Allergy Classification Reported Allergen(s) Allergy Type Date of Onset Reaction(s) Facility (6 sources) oxaliplatin Drug Allergy 5 Chest tightness [facility] (1 source) oxaliplatin Drug Allergy 5 [facility] Repository Medications Current Medications Medication Drug Class(es) Dates Sig (Normalized) Sig (Original) atorvastatin 40 mg oral tablet (20 sources) HMG-CoA Reductase Inhibitor Start: 08-04-2024 take 1 tablet by mouth once daily Atorvastatin 40 mg tablet Active 40 mg PO DAILY 90 August 04, 2024 11:25pm Start: 2023 End: 08-04-2024 take 1 tablet by mouth once daily Atorvastatin 20 mg tablet Discontinued 20 mg PO DAILY 90 0 May 05, 2024 5:37pm August 04, 2024 11:26pm levothyroxine sodium 0.15 mg oral tablet (20 sources) l-Thyroxine Start: 2024 Levothyroxine 150 mcg tablet Active 150 ug PO DAILY 120 1 2024 5:41pm Take 150 mcg 5 days a week and 225 mcg 2 days a week. Start: 08-04-2024 End: 2024 Levothyroxine 150 mcg tablet Discontinued 150 ug PO DAILY 120 1 August 04, 2024 11:24pm 2024 5:42pm Take 150 mcg 6 days a week and 225 mcg 1 day a week. Start: 07-27-2021 End: 08-04-2024 take 1 tablet by mouth once daily Levothyroxine 150 mcg tablet Discontinued 150 ug PO DAILY 90 1 November 01, 2023 5:27pm August 04, 2024 11:26pm Start: 06-29-2020 End: 07-27-2021 take 1 tablet by mouth once daily Levothyroxine 137 mcg tablet Discontinued 137 ug PO DAILY 60 June 29, 2020 9:20am July 27, 2021 2:45pm Start: 03-04-2020 End: 06-29-2020 take 1 tablet by mouth once daily Levothyroxine 125 mcg tablet Discontinued 125 ug PO DAILY 90 March 04, 2020 10:31am June 29, 2020 9:21am Start: 03-04-2020 End: 03-04-2020 Levothyroxine 125 mcg tablet Discontinued NMA PO March 04, 2020 12:00am March 04, 2020 10:34am take 1 capsule by [facility] once daily before breakfast levothyroxine 150 mcg cap Take 150 mcg by mouth daily before breakfast. Active lidocaine 25 mg/ml / prilocaine 25 mg/ml topical cream (7 sources) Antiarrhythmic, Amide Local Anesthetic Start: 09-09-2024 Lidocaine-Prilocaine 2.5-2.5 % cream Active 1 NMA TOPICAL ONCE as needed for port access September 09, 2024 12:00am Colorectal cancer Regional lymph node metastasis present Malignant neoplasm of rectosigmoid junction Secondary and unspecified malignant neoplasm of lymph node, unspecified metroNIDAZOLE 500 mg oral tablet (5 sources) [...] Active ondansetron 8 mg disintegrating oral tablet (7 sources) Serotonin-3 Receptor Antagonist Start: 09-09-2024 take 1 tablet by mouth every eight hours as needed for nausea and vomiting Ondansetron 8 mg tablet,disintegrating Active 8 mg PO Q8H as needed for nausea and vomiting 30 September 09, 2024 12:00am Colorectal cancer Malignant neoplasm of rectosigmoid junction oxyCODONE hydrochloride 5 mg oral tablet (1 [...] Active potassium iodide 65 mg oral tablet (7 sources) Start: 09-08-2024 Potassium Iodide 65 mg tablet Active 130 mg PO daily as needed for pain September 08, 2024 12:00am prochlorperazine 10 mg oral tablet (7 sources) Phenothiazine Start: 09-09-2024 take 1 tablet by mouth every six hours as needed for nausea and vomiting Prochlorperazine Maleate 10 mg tablet Active 10 mg PO EVERY 6 HOURS as needed for nausea and vomiting 30 September 09, 2024 12:00am Chemotherapy-induced nausea and vomiting Colorectal cancer Nausea with vomiting, unspecified Adverse effect of antineoplastic and immunosuppressive drugs, initial encounter Malignant neoplasm of rectosigmoid junction promethazine hydrochloride 25 mg oral tablet (8 [...] mg / clavulanate 125 mg oral tablet (10 sources) Penicillin-class Antibacterial Start: 06-28-2020 End: 07-22-2021 Amoxicillin-Pot Clavulanate 875-125 mg tablet Discontinued 1 {tbl} PO Q12H 14 0 June 28, 2020 1:00am July 22, 2021 10:58am Start: 06-28-2020 End: 07-22-2021 take 1 tablet by mouth every twelve hours Amoxicillin-Pot Clavulanate Discontinued 1 TABLET PO Q12H 14 June 28, 2020 1:00am July 22, 2021 10:58am carvedilol 6.25 mg oral tablet (20 sources) alpha-Adrenergic Jill, beta-Adrenergic Jill Start: 03-04-2020 End: 10-27-2024 take 1 tablet by mouth once daily Carvedilol 6.25 mg tablet Discontinued 6.25 mg PO DAILY 90 May 02, 2024 12:20pm October 27, 2024 8:16am Start: 03-04-2020 End: 05-16-2021 Carvedilol 6.25 mg tablet Di scontinued NMA PO March 04, 2020 12:00am May 16, 2021 5:38pm clopidogrel 75 mg oral tablet (20 sources) P2Y12 Platelet Inhibitor Start: 07-22-2021 End: 12-22-2024 take 1 tablet by mouth once daily Clopidogrel 75 mg tablet Discontinued 75 mg PO DAILY 90 January 11, 2022 4:48pm July 28, 2022 9:24am hydroCHLOROthiazide 25 mg oral tablet (20 sources) Thiazide Diuretic Start: 07-28-2022 End: 12-22-2024 take 1 tablet by mouth once daily in the morning Hydrochlorothiazide 25 mg tablet Discontinued 25 mg PO EVERY MORNING 90 November 01, 2023 5:27pm December 22, 2024 1:17pm Start: 07-22-2021 End: 07-28-2022 take 1 tablet by mouth once daily in the morning Hydrochlorothiazide 12.5 mg tablet Discontinued 12.5 mg PO EVERY MORNING 90 January 11, 2022 4:48pm July 28, 2022 9:24am losartan potassium 100 mg oral tablet (20 sources) Angiotensin 2 Receptor Jill Start: 03-04-2020 End: 12-22-2024 take 1 tablet by mouth once daily Losartan 100 mg tablet Discontinued 100 mg PO DAILY 90 3 July 27, 2021 9:39am July 28, 2022 9:24am Start: 03-04-2020 End: 03-04-2020 Losartan 50 mg tablet Discon tinued NMA PO March 04, 2020 12:00am March 04, 2020 10:34am Start: 03-04-2020 End: 03-04-2020 Losartan Discontinued EACH P O March 04, 2020 12:00am March 04, 2020 10:34am naproxen sodium 220 mg oral capsule (10 sources) Nonsteroidal Anti-inflammatory Drug Start: 03-04-2020 End: 06-25-2024 take 1 capsule by mouth twice daily as needed Naproxen Sodium (Aleve) 220 mg capsule Discontinued 220 mg PO TWICE A DAY as needed March 04, 2020 12:00am June 25, 2024 12:11pm spironolactone 25 mg oral tablet (10 sources) Aldosterone Antagonist Start: 03-04-2020 End: 07-22-2021 Spironolactone 25 mg tablet Discontinued NMA PO March 04, 2020 12:00am July 22, 2021 10:58am Start: 03-04-2020 End: 07-22-2021 Spironolactone Discontinued EACH PO March 04, 2020 12:00am July 22, 2021 10:58am traMADol hydrochloride 50 mg oral tablet (10 sources) Opioid Agonist Start: 06-30-2020 End: 07-22-2021 take 1 tablet by mouth three times daily as needed for pain Tramadol 50 mg tablet Discontinued 50 mg PO THREE TIMES A DAY as needed for pain 20 0 June 30, 2020 1:00am July 22, 2021 10:59am Pain in unspecified foot Vitamin B Complex (B Complex-Vitamin B12) tablet (10 sources) Start: 07-22-2021 End: 07-28-2022 Vitamin B [...] Classification Problem Date Documented Da te Episodic/Chronic Cancer of colon (2 sources) Malignant tumor of colon; Translations: [Malignant neoplasm of colon, unspecified] Onset: 09-04-2024 06-26-2024 Chronic Cancer of rectum and anus (20 sources) Malignant tumor of rectum; Translations: [Malignant neoplasm of rectum] Onset: 07-25-2024 07-18-2024 Chronic Disorders of lipid metabolism (20 sources) Hyperlipidemia; Translations: [Hyperlipidemia, unspecified] Onset: 07-18-2024 07-18-2024 Chronic Essential hypertension (20 sources) Hypertensive disorder; Translations: [Essential (primary) hypertension] Onset: 07-18-2024 06-28-2020 Chronic Maintenance chemotherapy; radiotherapy (20 sources) Patient encounter status; Translations: [Encounter for antineoplastic chemotherapy] Onset: 2024 10-20-2024 Chronic Other gastrointestinal disorders (14 sources) Chronic constipation; Translations: [Other constipation] Episodic Other nutritional; endocrine; and metabolic disorders (3 sources) Obese class I; Translations: [Obesity, Class I, BMI 30-34.9] Onset: 08-11-2024 08-11-2024 Chronic Other screening for suspected conditions (not mental disorders or infectious disease) (2 sources) Encounter for screening mammogram for malignant neoplasm of breast; Translations: [Encounter for screening mammogram for malignant neoplasm of breast] Onset: 01-14-2025 Episodic Other skin disorders (16 sources) Actinic keratosis; Translations: [Actinic keratosis] 11-04-2024 Episodic Other skin disorders (1 source) Actinic keratosis; Translations: [Actinic keratosis] Onset: 2024 Episodic Peripheral and visceral atherosclerosis (16 sources) Peripheral vascular disease; Translations: [Peripheral vascular disease, unspecified] Onset: 08-07-2024 08-07-2024 Chronic Residual codes; unclassified (7 sources) Nicotine user; Translations: [Tobacco use] Onset: 08-07-2024 08-07-2024 Episodic Residual codes; unclassified (1 source) Tobacco use; Translations: [Nicotine use] Onset: 08-07-2024 Episodic Secondary malignancies (20 sources) Regional lymph node metastasis present ; Translations: [Secondary and unspecified malignant neoplasm of lymph node, unspecified] 09-04-2024 Chronic Secondary malignancies (1 source) Secondary and unspecified malignant neoplasm of lymph node, unspecified; Translations: [Secondary and unspecified malignant neoplasm of lymph node, unspecified] Onset: 01-14-2025 Chronic Thyroid disorders (20 sources) Hypothyroidism; Translations: [Hypothyroidism, unspecified] Onset: 07-18-2024 07-22-2021 Chronic Unclassified (2 sources) Blood present in stool; Translations: [K59.09 - Other constipation,K92.1 - Melena] Unclassified (1 source) Post Op Onset: 08-29-2024 Unclassified (12 sources) C19 - Malignant neoplasm of rectosigmoid junction,C18.9 - Malignant neoplasm of colon, unspecified Unclassified (3 sources) Colorectal cancer Unclassified (2 sources) Malignant neoplasm of colon Unclassified (2 sources) C19 - Malignant neoplasm of rectosigmoid junction Past or Other Problems Problem Classification Problem Date Documented Da te Episodic/Chronic Administrative/social admission (16 sources) Patient encounter status; Translations: [Other specified counseling] Onset: 5 08-07-2024 Episodic E Codes: Adverse effects of medical drugs (1 source) Adverse effect of antineoplastic and immunosuppressive drugs, initial encounter; Translations: [Adverse effect of antineoplastic and immunosuppressive drugs, initial encounter] Onset: 5 Episodic Gastrointestinal hemorrhage (10 sources) Hematochezia; Translations: [Melena] Onset: 4 04-30-2024 Episodic Nausea and vomiting (13 sources) Chemotherapy-induced nausea and vomiting; Translations: [Nausea with vomiting, unspecified] Onset: 5 09-29-2024 Episodic Other gastrointestinal disorders (2 sources) Other constipation; Translations: [Other constipation] Onset: 5 Episodic Other gastrointestinal disorders (1 source) Constipation, unspecified; Translations: [Constipation, unspecified] Onset: Episodic Results Test Name Value Interpretation Reference Range Facility Carcinoembryonic Antigenon 0 8- CEA 4.1 ng/mL Normal 0.0-4.7 [facility] Comment on above: Result Comment: Nons mokers <3.9 Smokers <5.6[employer] Electrochemiluminescence Immunoassay(ECLIA)Values obtained with different assay methods or kitscannot be used interchangeably. Results cannot beinterpreted as absolute evidence of the presence orabsence of malignant disease.Performed at: [email or web address] [id number] Director: Osei Busch PhD, Phone: [phone] Performed By: #### L 501.2300, L501.5200, L500.4050, L3100.2300, L100.0100 ####[facility] [address] [place], [address] Absolute lymphocyte countOrd ered By: Antoni Leach on 01-14-2025 Lymphocytes Auto (Unsp spec) [#/Vol] 1.48 10*3/uL 0.83-4.51 [facility] Absolute neutrophil countOrd ered By: Antoni Leach on 01-14-2025 Neutrophils (Bld) [#/Vol] 4.5 10*3/uL 2.0-7.7 [facility] Anion gap in Serum or Plasma Ordered By: Antoni Leach on 01-14-2025 Anion gap [Moles/Vol] 13 mmol/L 5-15 [facility] Automated lymphocyte count a s percentage of total leukocytesOrdered By: Antoni Leach on 01-14-2025 Lymphocytes/100 WBC Auto (Unsp spec) 21.4 % 19-41 [facility] BUN/creatinine ratioOrdered By: Antoni Leach on 01-14-2025 Urea nitrogen/Creatinine [Mass ratio] 23.6 mg/mg High 10-20 [facility] Basophil percentageOrdered B y: Antoni Leach on 01-14-2025 Basophils/100 WBC (Bld) 0.6 % 0-1 [facility] Bilirubin, totalOrdered By: Antoni Leach on 01-14-2025 Bilirubin [Mass/Vol] 0.28 mg/dL 0.00-1.30 [facility] CBC W/Diff, Automatedon Absolute Lymph 1.48 X10 3/uL Normal 0.83-4.51 [facility] Comment on above: Performed By: #### L 501.2300, L501.5200, L500.4050, L3100.2300, L100.0100 ####[facility] [address] [place], [address] Absolute Neut 4.5 X10 3/uL Normal 2.0-7.7 [facility] Comment on above: Performed By: #### L 501.2300, L501.5200, L500.4050, L3100.2300, L100.0100 ####[facility] [address] [place], [address] Basophils/100 WBC (Bld) 0.6 % Normal 0-1 [facility] Comment on above: Performed By: #### L 501.2300, L501.5200, L500.4050, L3100.2300, L100.0100 ####[facility] [address] [place], [address] Eosinophils/100 WBC (Bld) 6.4 % High 0-5 [facility] Comment on above: Performed By: #### L 501.2300, L501.5200, L500.4050, L3100.2300, L100.0100 ####[facility] [address] [place], [address] Erythrocyte distribution width (RBC) [Ratio] 15.6 % High 11.6-14.6 [facility] Comment on above: Performed By: #### L 501.2300, L501.5200, L500.4050, L3100.2300, L100.0100 ####[facility] [address] [place], [address] Hematocrit (Bld) [Volume fraction] 32.9 % Low 37-47 [facility] Comment on above: Performed By: #### L 501.2300, L501.5200, L500.4050, L3100.2300, L100.0100 ####[facility] [address] [place], [address] Hemoglobin (Bld) [Mass/Vol] 11.0 g/dL Low 12.0-15.0 [facility] Comment on above: Performed By: #### L 501.2300, L501.5200, L500.4050, L3100.2300, L100.0100 ####[facility] [address] [place], [address] IG% 0.400 Normal 0.0-0.9 [facility] Comment on above: Result Comment: IG% - Immature Granulocytes (promyelocytes, myelocytes andmetamyelocytes) > 1% indicates that a LEFT SHIFT is Present. Performed By: #### L 501.2300, L501.5200, L500.4050, L3100.2300, L100.0100 ####[facility] [address] [place], [address] Lymphocytes/100 WBC (Bld) 21.4 % Normal 19-41 [facility] Comment on above: Performed By: #### L 501.2300, L501.5200, L500.4050, L3100.2300, L100.0100 ####[facility] [address] [place], [address] MCH (RBC) [Entitic mass] 32.6 pg High 27.0-32.0 [facility] Comment on above: Performed By: #### L 501.2300, L501.5200, L500.4050, L3100.2300, L100.0100 ####[facility] [address] [place], [address] MCHC (RBC) [Mass/Vol] 33.4 g/dL Normal 32-36 [facility] Comment on above: Performed By: #### L 501.2300, L501.5200, L500.4050, L3100.2300, L100.0100 ####[facility] [address] [place], [address] MCV (RBC) [Entitic vol] 97.6 fL Normal 81-99 [facility] Comment on above: Performed By: #### L 501.2300, L501.5200, L500.4050, L3100.2300, L100.0100 ####[facility] [address] [place], [address] Monocytes/100 WBC (Bld) 6.7 % Normal 0-10 [facility] Comment on above: Performed By: #### L 501.2300, L501.5200, L500.4050, L3100.2300, L100.0100 ####[facility] [address] [place], [address] Neutrophils/100 WBC (Bld) 64.5 % Normal 47-70 [facility] Comment on above: Performed By: #### L 501.2300, L501.5200, L500.4050, L3100.2300, L100.0100 ####[facility] [address] [place], [address] Nucleated RBC (Bld) [#/Vol] 0 10*3/uL Normal 0-5 [facility] Comment on above: Performed By: #### L 501.2300, L501.5200, L500.4050, L3100.2300, L100.0100 ####[facility] [address] [place], [address] Platelet mean volume (Bld) [Entitic vol] 12.1 fL High 6.2-12.0 [facility] Comment on above: Performed By: #### L 501.2300, L501.5200, L500.4050, L3100.2300, L100.0100 ####[facility] [address] [place], [address] Platelets (Bld) [#/Vol] 194 10*3/uL Normal 150-450 [facility] Comment on above: Performed By: #### L 501.2300, L501.5200, L500.4050, L3100.2300, L100.0100 ####[facility] [address] [place], [address] RBC (Bld) [#/Vol] 3.37 10*6/uL Low 4.2-5.4 [facility] Comment on above: Performed By: #### L 501.2300, L501.5200, L500.4050, L3100.2300, L100.0100 ####[facility] [address] [place], [address] RDW SD 56.4 fl High 35.1-43.9 [facility] Comment on above: Performed By: #### L 501.2300, L501.5200, L500.4050, L3100.2300, L100.0100 ####[facility] [address] [place], [address] WBC (Bld) [#/Vol] 6.9 10*3/uL Normal 4.4-11.0 [facility] Comment on above: Performed By: #### L 501.2300, L501.5200, L500.4050, L3100.2300, L100.0100 ####[facility] [address] [place], [address] Carbon dioxide, total [Moles /volume] in Central venous bloodOrdered By: Antoni Leach on 01-14-2025 CO2 [Moles/Vol] 22.4 mmol/L 21.0-32.0 [facility] Chloride assayOrdered By: Lisa Leach on 01-14-2025 Chloride [Moles/Vol] 106 mmol/L 98-108 [facility] Comprehensive Metabolic Prof ilon 01-14-2025 Albumin [Mass/Vol] 3.8 g/dL Normal 3.4-4.8 [facility] Comment on above: Performed By: #### L 501.2300, L501.5200, L500.4050, L3100.2300, L100.0100 ####[facility] [address] [place], [address] Albumin/Globulin [Mass ratio] 1.5 {ratio} Normal 0.9-2.4 [facility] Comment on above: Performed By: #### L 501.2300, L501.5200, L500.4050, L3100.2300, L100.0100 ####[facility] [address] [place], [address] ALK PHOS 99 U/L Normal 35-104 [facility] Comment on above: Performed By: #### L 501.2300, L501.5200, L500.4050, L3100.2300, L100.0100 ####[facility] [address] [place], [address] ALT [Catalytic activity/Vol] 22 U/L Normal <=34 [facility] Comment on above: Performed By: #### L 501.2300, L501.5200, L500.4050, L3100.2300, L100.0100 ####[facility] [address] [place], [address] AST [Catalytic activity/Vol] 18 U/L Normal <=31 [facility] Comment on above: Performed By: #### L 501.2300, L501.5200, L500.4050, L3100.2300, L100.0100 ####[facility] [address] [place], [address] Bilirubin [Mass/Vol] 0.28 mg/dL Normal 0.00-1.30 [facility] Comment on above: Performed By: #### L 501.2300, L501.5200, L500.4050, L3100.2300, L100.0100 ####[facility] [address] [place], [address] BUN/CRE 23.6 RATIO High 10-20 [facility] Comment on above: Performed By: #### L 501.2300, L501.5200, L500.4050, L3100.2300, L100.0100 ####[facility] [address] [place], [address] Calcium [Mass/Vol] 9.2 mg/dL Normal 7.6-11.0 [facility] Comment on above: Performed By: #### L 501.2300, L501.5200, L500.4050, L3100.2300, L100.0100 ####[facility] [address] [place], [address] Chloride [Moles/Vol] 106 mmol/L Normal 98-108 [facility] Comment on above: Performed By: #### L 501.2300, L501.5200, L500.4050, L3100.2300, L100.0100 ####[facility] [address] [place], [address] CO2 [Moles/Vol] 22.4 mmol/L Normal 21.0-32.0 [facility] Comment on above: Performed By: #### L 501.2300, L501.5200, L500.4050, L3100.2300, L100.0100 ####[facility] [address] [place], [address] Creatinine [Mass/Vol] 0.94 mg/dL Normal 0.70-1.20 [facility] Comment on above: Performed By: #### L 501.2300, L501.5200, L500.4050, L3100.2300, L100.0100 ####[facility] [address] [place], [address] ECRCL 69.11 ml/min Normal 50-250 [facility] Comment on above: Performed By: #### L 501.2300, L501.5200, L500.4050, L3100.2300, L100.0100 ####[facility] [address] [place], [address] GAP 13 Normal 5-15 [facility] Comment on above: Performed By: #### L 501.2300, L501.5200, L500.4050, L3100.2300, L100.0100 ####[facility] [address] [place], [address] GFR/1.73 sq M.predicted among non-blacks MDRD (S/P/Bld) [Vol rate/Area] 67 mL/min/{1.73_m2} Normal >60 [facility] Comment on above: Result Comment: mL/m in/1.73m2 CKD-EPI Creatinine Equation (2020) Performed By: #### L 501.2300, L501.5200, L500.4050, L3100.2300, L100.0100 ####[facility] [address] [place], [address] Globulin (S) [Mass/Vol] 2.5 g/dL Normal 2.2-4.2 [facility] Comment on above: Performed By: #### L 501.2300, L501.5200, L500.4050, L3100.2300, L100.0100 ####[facility] [address] [place], [address] Glucose [Mass/Vol] 172 mg/dL High 70-99 [facility] Comment on above: Performed By: #### L 501.2300, L501.5200, L500.4050, L3100.2300, L100.0100 ####[facility] [address] [place], [address] Potassium [Moles/Vol] 3.8 mmol/L Normal 3.3-5.1 [facility] Comment on above: Performed By: #### L 501.2300, L501.5200, L500.4050, L3100.2300, L100.0100 ####[facility] [address] [place], [address] Sodium [Moles/Vol] 141 mmol/L Normal 133-145 [facility] Comment on above: Performed By: #### L 501.2300, L501.5200, L500.4050, L3100.2300, L100.0100 ####[facility] [address] [place], [address] T PROT 6.3 g/dL Normal 5.9-8.4 [facility] Comment on above: Performed By: #### L 501.2300, L501.5200, L500.4050, L3100.2300, L100.0100 ####[facility] [address] [place], [address] Urea nitrogen [Mass/Vol] 22 mg/dL High 4-19 [facility] Comment on above: Performed By: #### L 501.2300, L501.5200, L500.4050, L3100.2300, L100.0100 ####[facility] [address] [place], [address] Eosinophil percentageOrdered By: Antoni Leach on 01-14-2025 Eosinophils/100 WBC (Bld) 6.4 % High 0-5 [facility] [facility] Erythrocyte distribution wid th ratioOrdered By: Antoni Leach on 01-14-2025 Erythrocyte distribution width (RBC) [Ratio] 15.6 % High 11.6-14.6 [facility] Erythrocyte distribution wid th standard deviationOrdered By: Antoni Leach on 01-14-2025 Erythrocyte distribution width (RBC) [Ratio] 56.4 fl High 35.1-43.9 [facility] Glomerular filtration rate ( GFR) estimation/1.73 sq m using serum, plasma, or whole bOrdered By: Antoni Leach on 01-14-2025 GFR/1.73 sq M.predicted among non-blacks MDRD (S/P/Bld) [Vol rate/Area] 67 mL/min/{1.73_m2} >60 [facility] Comment on above: mL/min/1.73m2 CKD-EP I Creatinine Equation (2020) Hematocrit Auto (Bld) [Volum e fraction]Ordered By: [facility] on 01-14-2025 Hematocrit (Bld) [Volume fraction] 32.9 % Low 37-47 [facility] Hemoglobin measurementOrdere d By: Antoni Leach on 01-14-2025 Hemoglobin (Bld) [Mass/Vol] 11.0 g/dL Low 12.0-15.0 [facility] Immature granulocytes/100 WB C Auto (Bld)Ordered By: Antoni Leach on 01-14-2025 Immature granulocytes/100 WBC (Bld) 0.400 % 0.0-0.9 [facility] Comment on above: IG% - Immature Granu locytes (promyelocytes, myelocytes and metamyelocytes) > 1% indicates that a LEFT SHIFT is Present. Laboratory - Chemistry and C hemistry - challengeOrdered By: [facility] on 01-14-2025 AST [Catalytic activity/Vol] 18 U/L <32 [facility] MCV (mean corpuscular volume ) determinationOrdered By: [facility] on 01-14-2025 MCV (RBC) [Entitic vol] 97.6 fL 81-99 [facility] Magnesiumon 01-14-2025 Magnesium [Mass/Vol] 2.1 mg/dL Normal 1.5-2.2 [facility] Comment on above: Performed By: #### L 501.2300, L501.5200, L500.4050, L3100.2300, L100.0100 ####[facility] [address] [place], [place], [id number] Magnesium measurement (mass/ volume)Ordered By: Antoni Leach on 01-14-2025 Magnesium (Unsp spec) [Mass/Vol] 2.1 mg/dL 1.5-2.2 [facility] Mean corpuscular hemoglobin (MCH) determinationOrdered By: [facility] Haylee on 01-14-2025 MCH (RBC) [Entitic mass] 32.6 pg High 27.0-32.0 [facility] Mean corpuscular hemoglobin concentration (MCHC) determinationOrdered By: [facility] Haylee on 01-14-2025 MCHC (RBC) [Mass/Vol] 33.4 g/dL 32-36 [facility] Mean platelet volume determi nationOrdered By: [facility] Leach on 01-14-2025 Platelet mean volume (Bld) [Entitic vol] 12.1 fL High 6.2-12.0 [facility] Monocyte percentageOrdered B y: [facility] Haylee on 01-14-2025 Monocytes/100 WBC (Bld) 6.7 % 0-10 [facility] Neutrophil percentageOrdered By: [facility] on 01-14-2025 Neutrophils/100 WBC (Bld) 64.5 % 47-70 [facility] Nucleated red blood cell per centageOrdered By: [facility] Haylee on 01-14-2025 Nucleated RBC/100 WBC (Bld) [Ratio] 0 % 0-5 [facility] Oncology Visit Reporton 08-0 Oncology Visit Report Normal [facility] Phosphoruson 01-14-2025 Phosphate [Mass/Vol] 2.7 mg/dL Normal 2.7-4.5 [facility] Comment on above: Performed By: #### L 501.2300, L501.5200, L500.4050, L3100.2300, L100.0100 ####[facility] [address] [place], [address] Platelet countOrdered By: Lisa Leach on 01-14-2025 Platelets (Bld) [#/Vol] 194 10*3/uL 150-450 [facility] Potassium measurement (mass/ volume)Ordered By: Antoni Leach on 01-14-2025 Potassium (Unsp spec) [Mass/Vol] 3.8 mmol/L 3.3-5.1 [facility] RBC Auto (Bld) [#/Vol]Ordere d By: Antoni Leach on 01-14-2025 RBC (Bld) [#/Vol] 3.37 10*6/uL Low 4.2-5.4 [facility] Serum creatinine measurement (mass/volume)Ordered By: Antoni Leach on 01-14-2025 Creatinine [Mass/Vol] 0.94 mg/dL 0.70-1.20 [facility] Serum globulin measurementOr dered By: Antoni Leach on 01-14-2025 Globulin (S) [Mass/Vol] 2.5 g/dL 2.2-4.2 [facility] Serum glucose measurement (m ass/volume)Ordered By: Antoni Leach on 01-14-2025 Glucose [Mass/Vol] 172 mg/dL High 70-99 [facility] Serum or plasma alanine zhu otransferase (ALT) measurementOrdered By: Antoni Leach on 01-14-2025 ALT [Catalytic activity/Vol] 22 U/L <35 [facility] Serum or plasma albumin sourav urement (mass/volume)Ordered By: Antoni Leach on 01-14-2025 Albumin [Mass/Vol] 3.8 g/dL 3.4-4.8 [facility] Serum or plasma albumin/glob ulin mass ratioOrdered By: Antoni Leach on 01-14-2025 Albumin/Globulin [Mass ratio] 1.5 {ratio} 0.9-2.4 [facility] Serum or plasma alkaline omid sphatase measurementOrdered By: Antoni Leach on 01-14-2025 ALP [Catalytic activity/Vol] 99 U/L 35-104 [facility] Serum or plasma calcium sourav urement (mass/volume)Ordered By: Antoni Leach on 01-14-2025 Calcium [Mass/Vol] 9.2 mg/dL 7.6-11.0 [facility] Serum or plasma urea nitroge n measurement (mass/volume)Ordered By: Antoni Leach on 01-14-2025 Urea nitrogen [Mass/Vol] 22 mg/dL High 4-19 [facility] Sodium levelOrdered By: Sarah vickie Haylee on 01-14-2025 Sodium [Moles/Vol] 141 mmol/L 133-145 [facility] Total proteinOrdered By: Colby Leach on 01-14-2025 Protein [Mass/Vol] 6.3 g/dL 5.9-8.4 [facility] White blood cell (WBC) count Ordered By: Antoni Leach on 01-14-2025 WBC (Bld) [#/Vol] 6.9 10*3/uL 4.4-11.0 [facility] CT Chest, Abd, Pel w/Contras ton 12-23-2024 CT Chest, Abd, Pel w/Contrast Normal [facility] Absolute lymphocyte countOrd ered By: Antoni Leach on 12-01-2024 Lymphocytes Auto (Unsp spec) [#/Vol] 1.59 10*3/uL 0.83-4.51 [facility] Absolute neutrophil countOrd ered By: Antoni Leach on 12-01-2024 Neutrophils (Bld) [#/Vol] 2.9 10*3/uL 2.0-7.7 [facility] Anion gap in Serum or Plasma Ordered By: Antoni Leach on 12-01-2024 Anion gap [Moles/Vol] 14 mmol/L 5-15 [facility] Automated lymphocyte count a s percentage of total leukocytesOrdered By: Antoni Leach on 12-01-2024 Lymphocytes/100 WBC Auto (Unsp spec) 29.0 % 19-41 [facility] BUN/creatinine ratioOrdered By: Antoni Leach on 12-01-2024 Urea nitrogen/Creatinine [Mass ratio] 15.8 mg/mg 10-20 [facility] Basophil percentageOrdered B y: Antoni Leach on 12-01-2024 Basophils/100 WBC (Bld) 1.1 % High 0-1 [facility] Bilirubin, totalOrdered By: Antoni Leach on 12-01-2024 Bilirubin [Mass/Vol] 0.42 mg/dL 0.00-1.30 [facility] Blood manual differential co mment interpretation (narrative result)Ordered By: Antoni Leach on 12-01-2024 Manual differential comment Jose David (Bld) [Interp] SCANNED [facility] CBC W/Diff, Automatedon 11-10 Anisocytosis Ql (Bld) 2+ Normal [facility] Comment on above: Performed By: #### L 100.0100, L500.4050, L501.5200 ####[facility] [address] [place], [address] ATYPICAL LYMPH 1+ Normal [facility] Comment on above: Performed By: #### L 100.0100, L500.4050, L501.5200 ####[facility] [address] [place], [address] SMEAR COMMENT SCANNED Normal [facility] Comment on above: Performed By: #### L 100.0100, L500.4050, L501.5200 ####[facility] [address] [place], [address] Carbon dioxide, total [Moles /volume] in Central venous bloodOrdered By: Antoni Leach on 12-01-2024 CO2 [Moles/Vol] 21.3 mmol/L 21.0-32.0 [facility] Chloride assayOrdered By: Lisa Leach on 12-01-2024 Chloride [Moles/Vol] 104 mmol/L 98-108 [facility] Comprehensive Metabolic Prof ilon 12-01-2024 Albumin [Mass/Vol] 3.9 g/dL Normal 3.4-4.8 [facility] Comment on above: Performed By: #### L 100.0100, L500.4050, L501.5200 ####[facility] [address] [place], [address] Albumin/Globulin [Mass ratio] 1.5 {ratio} Normal 0.9-2.4 [facility] Comment on above: Performed By: #### L 100.0100, L500.4050, L501.5200 ####[facility] [address] [place], [address] ALK PHOS 127 U/L High 35-104 [facility] Comment on above: Performed By: #### L 100.0100, L500.4050, L501.5200 ####[facility] [address] [place], [address] ALT [Catalytic activity/Vol] 18 U/L Normal <=34 [facility] Comment on above: Performed By: #### L 100.0100, L500.4050, L501.5200 ####[facility] [address] [place], [address] AST [Catalytic activity/Vol] 20 U/L Normal <=31 [facility] Comment on above: Performed By: #### L 100.0100, L500.4050, L501.5200 ####[facility] [address] [place], [address] Bilirubin [Mass/Vol] 0.42 mg/dL Normal 0.00-1.30 [facility] Comment on above: Performed By: #### L 100.0100, L500.4050, L501.5200 ####[facility] [address] [place], [address] BUN/CRE 15.8 RATIO Normal 10-20 [facility] Comment on above: Performed By: #### L 100.0100, L500.4050, L501.5200 ####[facility] [address] [place], [address] Calcium [Mass/Vol] 8.9 mg/dL Normal 7.6-11.0 [facility] Comment on above: Performed By: #### L 100.0100, L500.4050, L501.5200 ####[facility] [address] [place], [address] Chloride [Moles/Vol] 104 mmol/L Normal 98-108 [facility] Comment on above: Performed By: #### L 100.0100, L500.4050, L501.5200 ####[facility] [address] [place], [address] CO2 [Moles/Vol] 21.3 mmol/L Normal 21.0-32.0 [facility] Comment on above: Performed By: #### L 100.0100, L500.4050, L501.5200 ####[facility] [address] [place], [address] Creatinine [Mass/Vol] 0.98 mg/dL Normal 0.70-1.20 [facility] Comment on above: Performed By: #### L 100.0100, L500.4050, L501.5200 ####[facility] [address] [place], [address] ECRCL 66.45 ml/min Normal 50-250 [facility] Comment on above: Performed By: #### L 100.0100, L500.4050, L501.5200 ####[facility] [address] [place], [address] GAP 14 Normal 5-15 [facility] Comment on above: Performed By: #### L 100.0100, L500.4050, L501.5200 ####[facility] [address] [place], [address] GFR/1.73 sq M.predicted among non-blacks MDRD (S/P/Bld) [Vol rate/Area] 64 mL/min/{1.73_m2} Normal >60 [facility] Comment on above: Result Comment: mL/m in/1.73m2 CKD-EPI Creatinine Equation (2020) Performed By: #### L 100.0100, L500.4050, L501.5200 ####[facility] [address] [place], [address] Globulin (S) [Mass/Vol] 2.6 g/dL Normal 2.2-4.2 [facility] Comment on above: Performed By: #### L 100.0100, L500.4050, L501.5200 ####[facility] [address] [place], [address] Glucose [Mass/Vol] 118 mg/dL High 70-99 [facility] Comment on above: Performed By: #### L 100.0100, L500.4050, L501.5200 ####[facility] [address] [place], [address] Potassium [Moles/Vol] 3.8 mmol/L Normal 3.3-5.1 [facility] Comment on above: Performed By: #### L 100.0100, L500.4050, L501.5200 ####[facility] [address] [place], [address] Sodium [Moles/Vol] 140 mmol/L Normal 133-145 [facility] Comment on above: Performed By: #### L 100.0100, L500.4050, L501.5200 ####[facility] [address] [place], [address] T PROT 6.6 g/dL Normal 5.9-8.4 [facility] Comment on above: Performed By: #### L 100.0100, L500.4050, L501.5200 ####[facility] [address] [place], [address] Urea nitrogen [Mass/Vol] 15 mg/dL Normal 4-19 [facility] Comment on above: Performed By: #### L 100.0100, L500.4050, L501.5200 ####[facility] [address] [place], [address] Eosinophil percentageOrdered By: Antoni Leach on 12-01-2024 Eosinophils/100 WBC (Bld) 3.3 % 0-5 [facility] Erythrocyte distribution wid th ratioOrdered By: Antoni Leach on 12-01-2024 Erythrocyte distribution width (RBC) [Ratio] 20.3 % High 11.6-14.6 [facility] Erythrocyte distribution wid th standard deviationOrdered By: Antoni Leach on 12-01-2024 Erythrocyte distribution width (RBC) [Ratio] 72.6 fl High 35.1-43.9 [facility] Glomerular filtration rate ( GFR) estimation/1.73 sq m using serum, plasma, or whole bOrdered By: Antoni Leach on 12-01-2024 GFR/1.73 sq M.predicted among non-blacks MDRD (S/P/Bld) [Vol rate/Area] 64 mL/min/{1.73_m2} >60 [facility] Comment on above: mL/min/1.73m2 CKD-EP I Creatinine Equation (2020) Hematocrit Auto (Bld) [Volum e fraction]Ordered By: [facility] on 12-01-2024 Hematocrit (Bld) [Volume fraction] 32.0 % Low 37-47 [facility] Hemoglobin measurementOrdere d By: Antoni Leach on 12-01-2024 Hemoglobin (Bld) [Mass/Vol] 10.6 g/dL Low 12.0-15.0 [facility] Immature granulocytes/100 WB C Auto (Bld)Ordered By: Antoni Leach on 12-01-2024 Immature granulocytes/100 WBC (Bld) 0.500 % 0.0-0.9 [facility] Comment on above: IG% - Immature Granu locytes (promyelocytes, myelocytes and metamyelocytes) > 1% indicates that a LEFT SHIFT is Present. Laboratory - Chemistry and C hemistry - challengeOrdered By: Antoni Leach on 12-01-2024 AST [Catalytic activity/Vol] 20 U/L <32 [facility] Laboratory - Hematology and Cell countsOrdered By: Antoni Leach on 12-01-2024 Anisocytosis Ql (Bld) 2+ [facility] MCV (mean corpuscular volume ) determinationOrdered By: Antoni Leach on 12-01-2024 MCV (RBC) [Entitic vol] 98.2 fL 81-99 [facility] Magnesiumon 12-01-2024 Magnesium [Mass/Vol] 2.2 mg/dL Normal 1.5-2.2 [facility] Comment on above: Performed By: #### L 100.0100, L500.4050, L501.5200 ####[facility] [address] [place], [address] Magnesium measurement (mass/ volume)Ordered By: Antoni Leach on 12-01-2024 Magnesium (Unsp spec) [Mass/Vol] 2.2 mg/dL 1.5-2.2 [facility] Mean corpuscular hemoglobin (MCH) determinationOrdered By: Antoni Leach on 12-01-2024 MCH (RBC) [Entitic mass] 32.5 pg High 27.0-32.0 [facility] Mean corpuscular hemoglobin concentration (MCHC) determinationOrdered By: Antoni Leach on 12-01-2024 MCHC (RBC) [Mass/Vol] 33.1 g/dL 32-36 [facility] Mean platelet volume determi nationOrdered By: Antoni Leach on 12-01-2024 Platelet mean volume (Bld) [Entitic vol] 10.6 fL 6.2-12.0 [facility] Monocyte percentageOrdered B y: Antoni Leach on 12-01-2024 Monocytes/100 WBC (Bld) 13.7 % High 0-10 [facility] Neutrophil percentageOrdered By: Antoni Leach on 12-01-2024 Neutrophils/100 WBC (Bld) 52.4 % 47-70 [facility] Nucleated red blood cell per centageOrdered By: Antoni Leach on 12-01-2024 Nucleated RBC/100 WBC (Bld) [Ratio] 0 % 0-5 [facility] Oncology Visit Reporton 11-10 Oncology Visit Report Normal [facility] Platelet countOrdered By: Lisa Leach on 12-01-2024 Platelets (Bld) [#/Vol] 208 10*3/uL 150-450 [facility] Potassium measurement (mass/ volume)Ordered By: Antoni Leach on 12-01-2024 Potassium (Unsp spec) [Mass/Vol] 3.8 mmol/L 3.3-5.1 [facility] RBC Auto (Bld) [#/Vol]Ordere d By: Antoni Leach on 12-01-2024 RBC (Bld) [#/Vol] 3.26 10*6/uL Low 4.2-5.4 [facility] Serum creatinine measurement (mass/volume)Ordered By: Antoni Leach on 12-01-2024 Creatinine [Mass/Vol] 0.98 mg/dL 0.70-1.20 [facility] Serum globulin measurementOr dered By: Antoni Leach on 12-01-2024 Globulin (S) [Mass/Vol] 2.6 g/dL 2.2-4.2 [facility] Serum glucose measurement (m ass/volume)Ordered By: Antoni Leach on 12-01-2024 Glucose [Mass/Vol] 118 mg/dL High 70-99 [facility] Serum or plasma alanine zhu otransferase (ALT) measurementOrdered By: Antoni Leach on 12-01-2024 ALT [Catalytic activity/Vol] 18 U/L <35 [facility] Serum or plasma albumin sourav urement (mass/volume)Ordered By: Antoni Leach on 12-01-2024 Albumin [Mass/Vol] 3.9 g/dL 3.4-4.8 [facility] Serum or plasma albumin/glob ulin mass ratioOrdered By: Antoni Leach on 12-01-2024 Albumin/Globulin [Mass ratio] 1.5 {ratio} 0.9-2.4 [facility] Serum or plasma alkaline omid sphatase measurementOrdered By: Antoni Leach on 12-01-2024 ALP [Catalytic activity/Vol] 127 U/L High 35-104 [facility] Serum or plasma calcium sourav urement (mass/volume)Ordered By: Antoni Leach on 12-01-2024 Calcium [Mass/Vol] 8.9 mg/dL 7.6-11.0 [facility] Serum or plasma urea nitroge n measurement (mass/volume)Ordered By: Antoni Leach on 12-01-2024 Urea nitrogen [Mass/Vol] 15 mg/dL 4-19 [facility] Sodium levelOrdered By: Sarah Leach on 12-01-2024 Sodium [Moles/Vol] 140 mmol/L 133-145 [facility] Total proteinOrdered By: Colby Leach on 12-01-2024 Protein [Mass/Vol] 6.6 g/dL 5.9-8.4 [facility] White blood cell (WBC) count Ordered By: Antoni Leach on 12-01-2024 WBC (Bld) [#/Vol] 5.5 10*3/uL 4.4-11.0 [facility] Absolute lymphocyte countOrd ered By: Antoni Leach on 11-17-2024 Lymphocytes Auto (Unsp spec) [#/Vol] 1.38 10*3/uL 0.83-4.51 [facility] Absolute neutrophil countOrd ered By: Antoni Leach on 11-17-2024 Neutrophils (Bld) [#/Vol] 2.3 10*3/uL 2.0-7.7 [facility] Anion gap in Serum or Plasma Ordered By: Antoni Leach on 11-17-2024 Anion gap [Moles/Vol] 12 mmol/L 5-15 [facility] Automated lymphocyte count a s percentage of total leukocytesOrdered By: Antoni Leach on 11-17-2024 Lymphocytes/100 WBC Auto (Unsp spec) 32.3 % 19-41 [facility] BUN/creatinine ratioOrdered By: Antoni Leach on 11-17-2024 Urea nitrogen/Creatinine [Mass ratio] 21.3 mg/mg High 10-20 [facility] Basophil percentageOrdered B y: Antoni Leach on 11-17-2024 Basophils/100 WBC (Bld) 0.7 % 0-1 [facility] Bilirubin, totalOrdered By: Antoni Leach on 11-17-2024 Bilirubin [Mass/Vol] 0.46 mg/dL 0.00-1.30 [facility] CBC W/Diff, Automatedon 06- Anisocytosis Ql (Bld) 2+ Normal [facility] Comment on above: Performed By: #### L 501.5200, L500.4050, L100.0100 ####[facility] [address] [place], [address] Carbon dioxide, total [Moles /volume] in Central venous bloodOrdered By: Antoni Leach on 11-17-2024 CO2 [Moles/Vol] 21.9 mmol/L 21.0-32.0 [facility] Chloride assayOrdered By: Lisa Leach on 11-17-2024 Chloride [Moles/Vol] 107 mmol/L 98-108 [facility] Comprehensive Metabolic Prof ilon 11-17-2024 Albumin [Mass/Vol] 3.8 g/dL Normal 3.4-4.8 [facility] Comment on above: Performed By: #### L 501.5200, L500.4050, L100.0100 ####[facility] [address] [place], [address] Albumin/Globulin [Mass ratio] 1.6 {ratio} Normal 0.9-2.4 [facility] Comment on above: Performed By: #### L 501.5200, L500.4050, L100.0100 ####[facility] [address] [place], [address] ALK PHOS 118 U/L High 35-104 [facility] Comment on above: Performed By: #### L 501.5200, L500.4050, L100.0100 ####[facility] [address] [place], [address] ALT [Catalytic activity/Vol] 16 U/L Normal <=34 [facility] Comment on above: Performed By: #### L 501.5200, L500.4050, L100.0100 ####[facility] [address] [place], [address] AST [Catalytic activity/Vol] 18 U/L Normal <=31 [facility] Comment on above: Performed By: #### L 501.5200, L500.4050, L100.0100 ####[facility] [address] [place], [address] Bilirubin [Mass/Vol] 0.46 mg/dL Normal 0.00-1.30 [facility] Comment on above: Performed By: #### L 501.5200, L500.4050, L100.0100 ####[facility] [address] [place], [address] BUN/CRE 21.3 RATIO High 10-20 [facility] Comment on above: Performed By: #### L 501.5200, L500.4050, L100.0100 ####[facility] [address] [place], [address] Calcium [Mass/Vol] 9.0 mg/dL Normal 7.6-11.0 [facility] Comment on above: Performed By: #### L 501.5200, L500.4050, L100.0100 ####[facility] [address] [place], [address] Chloride [Moles/Vol] 107 mmol/L Normal 98-108 [facility] Comment on above: Performed By: #### L 501.5200, L500.4050, L100.0100 ####[facility] [address] [place], [address] CO2 [Moles/Vol] 21.9 mmol/L Normal 21.0-32.0 [facility] Comment on above: Performed By: #### L 501.5200, L500.4050, L100.0100 ####[facility] [address] [place], [address] Creatinine [Mass/Vol] 0.87 mg/dL Normal 0.70-1.20 [facility] Comment on above: Performed By: #### L 501.5200, L500.4050, L100.0100 ####[facility] [address] [place], [address] ECRCL 75.37 ml/min Normal 50-250 [facility] Comment on above: Performed By: #### L 501.5200, L500.4050, L100.0100 ####[facility] [address] [place], [address] GAP 12 Normal 5-15 [facility] Comment on above: Performed By: #### L 501.5200, L500.4050, L100.0100 ####[facility] [address] [place], [address] GFR/1.73 sq M.predicted among non-blacks MDRD (S/P/Bld) [Vol rate/Area] 73 mL/min/{1.73_m2} Normal >60 [facility] Comment on above: Result Comment: mL/m in/1.73m2 CKD-EPI Creatinine Equation (2020) Performed By: #### L 501.5200, L500.4050, L100.0100 ####[facility] [address] [place], [address] Globulin (S) [Mass/Vol] 2.4 g/dL Normal 2.2-4.2 [facility] Comment on above: Performed By: #### L 501.5200, L500.4050, L100.0100 ####[facility] [address] [place], [address] Glucose [Mass/Vol] 102 mg/dL High 70-99 [facility] Comment on above: Performed By: #### L 501.5200, L500.4050, L100.0100 ####[facility] [address] [place], [address] Potassium [Moles/Vol] 3.8 mmol/L Normal 3.3-5.1 [facility] Comment on above: Performed By: #### L 501.5200, L500.4050, L100.0100 ####[facility] [address] [place], [address] Sodium [Moles/Vol] 141 mmol/L Normal 133-145 [facility] Comment on above: Performed By: #### L 501.5200, L500.4050, L100.0100 ####[facility] [address] [place], [address] T PROT 6.2 g/dL Normal 5.9-8.4 [facility] Comment on above: Performed By: #### L 501.5200, L500.4050, L100.0100 ####[facility] [address] [place], [address] Urea nitrogen [Mass/Vol] 19 mg/dL Normal 4-19 [facility] Comment on above: Performed By: #### L 501.5200, L500.4050, L100.0100 ####[facility] [address] [place], [address] Eosinophil percentageOrdered By: Antoni Leach on 11-17-2024 Eosinophils/100 WBC (Bld) 3.3 % 0-5 [facility] Erythrocyte distribution wid th ratioOrdered By: Antoni Leach on 11-17-2024 Erythrocyte distribution width (RBC) [Ratio] 19.9 % High 11.6-14.6 [facility] Erythrocyte distribution wid th standard deviationOrdered By: Antoni Leach on 11-17-2024 Erythrocyte distribution width (RBC) [Ratio] 66.8 fl High 35.1-43.9 [facility] Glomerular filtration rate ( GFR) estimation/1.73 sq m using serum, plasma, or whole bOrdered By: [facility] on 11-17-2024 GFR/1.73 sq M.predicted among non-blacks MDRD (S/P/Bld) [Vol rate/Area] 73 mL/min/{1.73_m2} >60 [facility] Comment on above: mL/min/1.73m2 CKD-EP I Creatinine Equation (2020) Hematocrit Auto (Bld) [Volum e fraction]Ordered By: [facility] Haylee on 11-17-2024 Hematocrit (Bld) [Volume fraction] 29.8 % Low 37-47 [facility] Hemoglobin measurementOrdere d By: [facility] on 11-17-2024 Hemoglobin (Bld) [Mass/Vol] 10.0 g/dL Low 12.0-15.0 [facility] Immature granulocytes/100 WB C Auto (Bld)Ordered By: [facility] on 11-17-2024 Immature granulocytes/100 WBC (Bld) 0.200 % 0.0-0.9 [facility] Comment on above: IG% - Immature Granu locytes (promyelocytes, myelocytes and metamyelocytes) > 1% indicates that a LEFT SHIFT is Present. Laboratory - Chemistry and C hemistry - challengeOrdered By: [facility] 11-[facility] AST [Catalytic activity/Vol] 18 U/L <32 [facility] Laboratory - Hematology and Cell countsOrdered By: [facility] on 11-17-2024 Anisocytosis Ql (Bld) 2+ [facility] MCV (mean corpuscular volume ) determinationOrdered By: [facility] on 11-17-2024 MCV (RBC) [Entitic vol] 94.9 fL 81-99 [facility] Magnesiumon 11-17-2024 Magnesium [Mass/Vol] 2.0 mg/dL Normal 1.5-2.2 [facility] Comment on above: Performed By: #### L 501.5200, L500.4050, L100.0100 ####[facility] [address] [place], [address] Magnesium measurement (mass/ volume)Ordered By: Antoni Leach on 11-17-2024 Magnesium (Unsp spec) [Mass/Vol] 2.0 mg/dL 1.5-2.2 [facility] Mean corpuscular hemoglobin (MCH) determinationOrdered By: Antoni Leach on 11-17-2024 MCH (RBC) [Entitic mass] 31.8 pg 27.0-32.0 [facility] Mean corpuscular hemoglobin concentration (MCHC) determinationOrdered By: Antoni Leach on 11-17-2024 MCHC (RBC) [Mass/Vol] 33.6 g/dL 32-36 [facility] Mean platelet volume determi nationOrdered By: Antnoi Leach on 11-17-2024 Platelet mean volume (Bld) [Entitic vol] 10.3 fL 6.2-12.0 [facility] Monocyte percentageOrdered B y: Antoni Leach on 11-17-2024 Monocytes/100 WBC (Bld) 9.8 % 0-10 [facility] Neutrophil percentageOrdered By: [facility] on 11-17-2024 Neutrophils/100 WBC (Bld) 53.7 % 47-70 [facility] Nucleated red blood cell per centageOrdered By: Antoni Leach on 11-17-2024 Nucleated RBC/100 WBC (Bld) [Ratio] 0 % 0-5 [facility] Oncology Visit Reporton 06 Oncology Visit Report Normal [facility] Platelet countOrdered By: Lisa Leach on 11-17-2024 Platelets (Bld) [#/Vol] 156 10*3/uL 150-450 [facility] Potassium measurement (mass/ volume)Ordered By: Antoni Leach on 11-17-2024 Potassium (Unsp spec) [Mass/Vol] 3.8 mmol/L 3.3-5.1 [facility] RBC Auto (Bld) [#/Vol]Ordere d By: Antoni Leach on 11-17-2024 RBC (Bld) [#/Vol] 3.14 10*6/uL Low 4.2-5.4 [facility] Serum creatinine measurement (mass/volume)Ordered By: Antoni Leach on 11-17-2024 Creatinine [Mass/Vol] 0.87 mg/dL 0.70-1.20 [facility] Serum globulin measurementOr dered By: Antoni Leach on 11-17-2024 Globulin (S) [Mass/Vol] 2.4 g/dL 2.2-4.2 [facility] Serum glucose measurement (m ass/volume)Ordered By: Antoni Leach on 11-17-2024 Glucose [Mass/Vol] 102 mg/dL High 70-99 [facility] Serum or plasma alanine zhu otransferase (ALT) measurementOrdered By: Antoni Leach on 11-17-2024 ALT [Catalytic activity/Vol] 16 U/L <35 [facility] Serum or plasma albumin sourav urement (mass/volume)Ordered By: Antoni Leach on 11-17-2024 Albumin [Mass/Vol] 3.8 g/dL 3.4-4.8 [facility] Serum or plasma albumin/glob ulin mass ratioOrdered By: Antoni Leach on 11-17-2024 Albumin/Globulin [Mass ratio] 1.6 {ratio} 0.9-2.4 [facility] Serum or plasma alkaline omid sphatase measurementOrdered By: Antoni Leach on 11-17-2024 ALP [Catalytic activity/Vol] 118 U/L High 35-104 [facility] Serum or plasma calcium sourav urement (mass/volume)Ordered By: Antoni Leach on 11-17-2024 Calcium [Mass/Vol] 9.0 mg/dL 7.6-11.0 [facility] Serum or plasma urea nitroge n measurement (mass/volume)Ordered By: Antoni Leach on 11-17-2024 Urea nitrogen [Mass/Vol] 19 mg/dL 4-19 [facility] Sodium levelOrdered By: Sarah Leach on 11-17-2024 Sodium [Moles/Vol] 141 mmol/L 133-145 [facility] Total proteinOrdered By: Colby Leach on 11-17-2024 Protein [Mass/Vol] 6.2 g/dL 5.9-8.4 [facility] White blood cell (WBC) count Ordered By: Antoni Leach on 11-17-2024 WBC (Bld) [#/Vol] 4.3 10*3/uL Low 4.4-11.0 [facility] Internal Medicine Office Vis evijohn 2024 Internal Medicine Office Visit Normal [facility] Thyroid Stim Hormone (TSH)on 2024 TSH 9.470 uIU/mL High 0.300-4.200 [facility] Comment on above: Performed By: #### L 501.9520 ####[facility] [address] [place], [place], [id number] Absolute lymphocyte countOrd ered By: Dayton Lewis on 11-04-2024 Lymphocytes Auto (Unsp spec) [#/Vol] 1.63 10*3/uL 0.83-4.51 [facility] Absolute neutrophil countOrd ered By: Dayton Lewis on 11-04-2024 Neutrophils (Bld) [#/Vol] 1.9 10*3/uL Low 2.0-7.7 [facility] Anion gap in Serum or Plasma Ordered By: Dayton Lewis on 11-04-2024 Anion gap [Moles/Vol] 12 mmol/L 5-15 [facility] Automated lymphocyte count a s percentage of total leukocytesOrdered By: Dayton Lewis on 11-04-2024 Lymphocytes/100 WBC Auto (Unsp spec) 39.0 % 19-41 [facility] BUN/creatinine ratioOrdered By: Dayton Lewis on 11-04-2024 Urea nitrogen/Creatinine [Mass ratio] 22.1 mg/mg High 10-20 [facility] Basophil percentageOrdered B y: Dayton Lewis on 11-04-2024 Basophils/100 WBC (Bld) 1.0 % 0-1 [facility] Bilirubin, totalOrdered By: Dayton Lewis on 11-04-2024 Bilirubin [Mass/Vol] 0.37 mg/dL 0.00-1.30 [facility] Blood polychromasia detectio n by light microscopyOrdered By: Dayton Lewis on 11-04-2024 Polychromasia LM Ql (Bld) 1+ [facility] CBC W/Diff, Automatedon - PLT EST SLT DEC Normal ADEQ [facility] Comment on above: Performed By: #### L 100.0100, L501.5200, L500.4050 ####[facility] [address] [place], [address] POLYCHROMASIA 1+ Normal [facility] Comment on above: Performed By: #### L 100.0100, L501.5200, L500.4050 ####[facility] [address] [place], [address] Carbon dioxide, total [Moles /volume] in Central venous bloodOrdered By: Dayton Lewis on 11-04-2024 CO2 [Moles/Vol] 22.1 mmol/L 21.0-32.0 [facility] Chloride assayOrdered By: Chelsea Lewis on 11-04-2024 Chloride [Moles/Vol] 107 mmol/L 98-108 [facility] Comprehensive Metabolic Prof ilon 11-04-2024 Albumin [Mass/Vol] 3.9 g/dL Normal 3.4-4.8 [facility] Comment on above: Performed By: #### L 100.0100, L501.5200, L500.4050 ####[facility] [address] [place], [address] Albumin/Globulin [Mass ratio] 1.6 {ratio} Normal 0.9-2.4 [facility] Comment on above: Performed By: #### L 100.0100, L501.5200, L500.4050 ####[facility] [address] [place], [address] ALK PHOS 108 U/L High 35-104 [facility] Comment on above: Performed By: #### L 100.0100, L501.5200, L500.4050 ####[facility] [address] [place], [address] ALT [Catalytic activity/Vol] 15 U/L Normal <=34 [facility] Comment on above: Performed By: #### L 100.0100, L501.5200, L500.4050 ####[facility] [address] [place], [address] AST [Catalytic activity/Vol] 16 U/L Normal <=31 [facility] Comment on above: Performed By: #### L 100.0100, L501.5200, L500.4050 ####[facility] [address] [place], [address] Bilirubin [Mass/Vol] 0.37 mg/dL Normal 0.00-1.30 [facility] Comment on above: Performed By: #### L 100.0100, L501.5200, L500.4050 ####[facility] [address] [place], [address] BUN/CRE 22.1 RATIO High 10-20 [facility] Comment on above: Performed By: #### L 100.0100, L501.5200, L500.4050 ####[facility] [address] [place], [address] Calcium [Mass/Vol] 9.1 mg/dL Normal 7.6-11.0 [facility] Comment on above: Performed By: #### L 100.0100, L501.5200, L500.4050 ####[facility] [address] [place], [address] Chloride [Moles/Vol] 107 mmol/L Normal 98-108 [facility] Comment on above: Performed By: #### L 100.0100, L501.5200, L500.4050 ####[facility] [address] [place], [address] CO2 [Moles/Vol] 22.1 mmol/L Normal 21.0-32.0 [facility] Comment on above: Performed By: #### L 100.0100, L501.5200, L500.4050 ####[facility] [address] [place], [address] Creatinine [Mass/Vol] 0.90 mg/dL Normal 0.70-1.20 [facility] Comment on above: Performed By: #### L 100.0100, L501.5200, L500.4050 ####[facility] [address] [place], [address] ECRCL 73.40 ml/min Normal 50-250 [facility] Comment on above: Performed By: #### L 100.0100, L501.5200, L500.4050 ####[facility] [address] [place], [address] GAP 12 Normal 5-15 [facility] Comment on above: Performed By: #### L 100.0100, L501.5200, L500.4050 ####[facility] [address] [place], [address] GFR/1.73 sq M.predicted among non-blacks MDRD (S/P/Bld) [Vol rate/Area] 71 mL/min/{1.73_m2} Normal >60 [facility] Comment on above: Result Comment: mL/m in/1.73m2 CKD-EPI Creatinine Equation (2020) Performed By: #### L 100.0100, L501.5200, L500.4050 ####[facility] [address] [place], [address] Globulin (S) [Mass/Vol] 2.5 g/dL Normal 2.2-4.2 [facility] Comment on above: Performed By: #### L 100.0100, L501.5200, L500.4050 ####[facility] [address] [place], [address] Glucose [Mass/Vol] 152 mg/dL High 70-99 [facility] Comment on above: Performed By: #### L 100.0100, L501.5200, L500.4050 ####[facility] [address] [place], [address] Potassium [Moles/Vol] 3.6 mmol/L Normal 3.3-5.1 [facility] Comment on above: Performed By: #### L 100.0100, L501.5200, L500.4050 ####[facility] [address] [place], [address] Sodium [Moles/Vol] 141 mmol/L Normal 133-145 [facility] Comment on above: Performed By: #### L 100.0100, L501.5200, L500.4050 ####[facility] [address] [place], [address] T PROT 6.4 g/dL Normal 5.9-8.4 [facility] Comment on above: Performed By: #### L 100.0100, L501.5200, L500.4050 ####[facility] [address] [place], [address] Urea nitrogen [Mass/Vol] 20 mg/dL High 4-19 [facility] Comment on above: Performed By: #### L 100.0100, L501.5200, L500.4050 ####[facility] [address] [place], [address] Eosinophil percentageOrdered By: Dayton Lewis on 11-04-2024 Eosinophils/100 WBC (Bld) 4.5 % 0-5 [facility] Erythrocyte distribution wid th ratioOrdered By: Dayton Lewis on 11-04-2024 Erythrocyte distribution width (RBC) [Ratio] 18.6 % High 11.6-14.6 [facility] Erythrocyte distribution wid th standard deviationOrdered By: Dayton Lewis on 11-04-2024 Erythrocyte distribution width (RBC) [Ratio] 61.0 fl High 35.1-43.9 [facility] Glomerular filtration rate ( GFR) estimation/1.73 sq m using serum, plasma, or whole bOrdered By: Dayton Lewis on 11-04-2024 GFR/1.73 sq M.predicted among non-blacks MDRD (S/P/Bld) [Vol rate/Area] 71 mL/min/{1.73_m2} >60 [facility] Comment on above: mL/min/1.73m2 CKD-EP I Creatinine Equation (2020) Hematocrit Auto (Bld) [Volum e fraction]Ordered By: Dayton [facility] on 11-04-2024 Hematocrit (Bld) [Volume fraction] 32.7 % Low 37-47 [facility] Hemoglobin measurementOrdere d By: Dayton Lewis on 11-04-2024 Hemoglobin (Bld) [Mass/Vol] 10.5 g/dL Low 12.0-15.0 [facility] Immature granulocytes/100 WB C Auto (Bld)Ordered By: Dayton Lewis on 11-04-2024 Immature granulocytes/100 WBC (Bld) 0.500 % 0.0-0.9 [facility] Comment on above: IG% - Immature Granu locytes (promyelocytes, myelocytes and metamyelocytes) > 1% indicates that a LEFT SHIFT is Present. Laboratory - Chemistry and C hemistry - challengeOrdered By: Dayton [facility] on 11-04-2024 AST [Catalytic activity/Vol] 16 U/L <32 [facility] MCV (mean corpuscular volume ) determinationOrdered By: Dayton Lewis on 11-04-2024 MCV (RBC) [Entitic vol] 95.6 fL 81-99 [facility] Magnesiumon 11-04-2024 Magnesium [Mass/Vol] 2.1 mg/dL Normal 1.5-2.2 [facility] Comment on above: Performed By: #### L 100.0100, L501.5200, L500.4050 ####[facility] [address] [place], [place], [id number] Magnesium measurement (mass/ volume)Ordered By: Dayton Lewis on 11-04-2024 Magnesium (Unsp spec) [Mass/Vol] 2.1 mg/dL 1.5-2.2 [facility] Mean corpuscular hemoglobin (MCH) determinationOrdered By: Dayton Lweis on 11-04-2024 MCH (RBC) [Entitic mass] 30.7 pg 27.0-32.0 [facility] Mean corpuscular hemoglobin concentration (MCHC) determinationOrdered By: Dayton Lewis on 11-04-2024 MCHC (RBC) [Mass/Vol] 32.1 g/dL 32-36 [facility] Mean platelet volume determi nationOrdered By: Dayton Lewis on 11-04-2024 Platelet mean volume (Bld) [Entitic vol] 11.5 fL 6.2-12.0 [facility] Monocyte percentageOrdered B y: Dayton Lewis on 11-04-2024 Monocytes/100 WBC (Bld) 9.1 % 0-10 [facility] Neutrophil percentageOrdered By: Dayton Lewis on 11-04-2024 Neutrophils/100 WBC (Bld) 45.9 % Low 47-70 [facility] Nucleated red blood cell per centageOrdered By: Dayton Lewis on 11-04-2024 Nucleated RBC/100 WBC (Bld) [Ratio] 0 % 0-5 [facility] Oncology Visit Reporton 10-10 Oncology Visit Report Normal [facility] Platelet countOrdered By: Chelsea Lewis on 11-04-2024 Platelets (Bld) [#/Vol] 121 10*3/uL Low 150-450 [facility] Platelet estimateOrdered By: Dayton Lewis on 11-04-2024 Platelets LM Ql (Bld) SLT DEC ADEQ [facility] Potassium measurement (mass/ volume)Ordered By: Dayton Lewis on 11-04-2024 Potassium (Unsp spec) [Mass/Vol] 3.6 mmol/L 3.3-5.1 [facility] RBC Auto (Bld) [#/Vol]Ordere d By: Dayton Lewis on 11-04-2024 RBC (Bld) [#/Vol] 3.42 10*6/uL Low 4.2-5.4 [facility] Serum creatinine measurement (mass/volume)Ordered By: Dayton Lewis on 11-04-2024 Creatinine [Mass/Vol] 0.90 mg/dL 0.70-1.20 [facility] Serum globulin measurementOr dered By: Dayton Lewis on 11-04-2024 Globulin (S) [Mass/Vol] 2.5 g/dL 2.2-4.2 [facility] Serum glucose measurement (m ass/volume)Ordered By: Dayton Lewis on 11-04-2024 Glucose [Mass/Vol] 152 mg/dL High 70-99 [facility] Serum or plasma alanine zuh otransferase (ALT) measurementOrdered By: Dayton Lewis on 11-04-2024 ALT [Catalytic activity/Vol] 15 U/L <35 [facility] Serum or plasma albumin sourav urement (mass/volume)Ordered By: Dayton Lewis on 11-04-2024 Albumin [Mass/Vol] 3.9 g/dL 3.4-4.8 [facility] Serum or plasma albumin/glob ulin mass ratioOrdered By: Dayton Lewis on 11-04-2024 Albumin/Globulin [Mass ratio] 1.6 {ratio} 0.9-2.4 [facility] Serum or plasma alkaline omid sphatase measurementOrdered By: Dayton Lewis on 11-04-2024 ALP [Catalytic activity/Vol] 108 U/L High 35-104 [facility] Serum or plasma calcium sourav urement (mass/volume)Ordered By: Dayton Lewis on 11-04-2024 Calcium [Mass/Vol] 9.1 mg/dL 7.6-11.0 [facility] Serum or plasma urea nitroge n measurement (mass/volume)Ordered By: Dayton Lewis on 11-04-2024 Urea nitrogen [Mass/Vol] 20 mg/dL High 4-19 [facility] Sodium levelOrdered By: Allen Lewis on 11-04-2024 Sodium [Moles/Vol] 141 mmol/L 133-145 [facility] TSH DL <= 0.005 mIU/L QnOrde red By: Antoni Slaughter on 11-04-2024 TSH Qn 9.470 uIU/mL High 0.300-4.200 [facility] Total proteinOrdered By: Eder Lewis on 11-04-2024 Protein [Mass/Vol] 6.4 g/dL 5.9-8.4 [facility] White blood cell (WBC) count Ordered By: Dayton Lewis on 11-04-2024 WBC (Bld) [#/Vol] 4.2 10*3/uL Low 4.4-11.0 [facility] CBC W/Diff, Automatedon 10-09 Absolute Lymph 1.85 X10 3/uL Normal 0.83-4.51 [facility] Comment on above: Performed By: #### L 500.4050, L501.5200, L100.0100 ####[facility] [address] [place], [address] Absolute Neut 3.5 X10 3/uL Normal 2.0-7.7 [facility] Comment on above: Performed By: #### L 500.4050, L501.5200, L100.0100 ####[facility] [address] [place], [address] Basophils/100 WBC (Bld) 0.6 % Normal 0-1 [facility] Comment on above: Performed By: #### L 500.4050, L501.5200, L100.0100 ####[facility] [address] [place], [address] Eosinophils/100 WBC (Bld) 3.0 % Normal 0-5 [facility] Comment on above: Performed By: #### L 500.4050, L501.5200, L100.0100 ####[facility] [address] [place], [address] Erythrocyte distribution width (RBC) [Ratio] 16.0 % High 11.6-14.6 [facility] Comment on above: Performed By: #### L 500.4050, L501.5200, L100.0100 ####[facility] [address] [place], [address] Hematocrit (Bld) [Volume fraction] 33.0 % Low 37-47 [facility] Comment on above: Performed By: #### L 500.4050, L501.5200, L100.0100 ####[facility] [address] [place], [address] Hemoglobin (Bld) [Mass/Vol] 10.9 g/dL Low 12.0-15.0 [facility] Comment on above: Performed By: #### L 500.4050, L501.5200, L100.0100 ####[facility] [address] [place], [address] IG% 0.300 Normal 0.0-0.9 [facility] Comment on above: Result Comment: IG% - Immature Granulocytes (promyelocytes, myelocytes andmetamyelocytes) > 1% indicates that a LEFT SHIFT is Present. Performed By: #### L 500.4050, L501.5200, L100.0100 ####[facility] [address] [place], [address] Lymphocytes/100 WBC (Bld) 29.6 % Normal 19-41 [facility] Comment on above: Performed By: #### L 500.4050, L501.5200, L100.0100 ####[facility] [address] [place], [address] MCH (RBC) [Entitic mass] 30.1 pg Normal 27.0-32.0 [facility] Comment on above: Performed By: #### L 500.4050, L501.5200, L100.0100 ####[facility] [address] [place], [address] MCHC (RBC) [Mass/Vol] 33.0 g/dL Normal 32-36 [facility] Comment on above: Performed By: #### L 500.4050, L501.5200, L100.0100 ####[facility] [address] [place], [address] MCV (RBC) [Entitic vol] 91.2 fL Normal 81-99 [facility] Comment on above: Performed By: #### L 500.4050, L501.5200, L100.0100 ####[facility] [address] [place], [address] Monocytes/100 WBC (Bld) 10.7 % High 0-10 [facility] Comment on above: Performed By: #### L 500.4050, L501.5200, L100.0100 ####[facility] [address] [place], [address] Neutrophils/100 WBC (Bld) 55.8 % Normal 47-70 [facility] Comment on above: Performed By: #### L 500.4050, L501.5200, L100.0100 ####[facility] [address] [place], [address] Nucleated RBC (Bld) [#/Vol] 0 10*3/uL Normal 0-5 [facility] Comment on above: Performed By: #### L 500.4050, L501.5200, L100.0100 ####[facility] [address] [place], [address] Platelet mean volume (Bld) [Entitic vol] 11.0 fL Normal 6.2-12.0 [facility] Comment on above: Performed By: #### L 500.4050, L501.5200, L100.0100 ####[facility] [address] [place], [address] Platelets (Bld) [#/Vol] 165 10*3/uL Normal 150-450 [facility] Comment on above: Performed By: #### L 500.4050, L501.5200, L100.0100 ####[facility] [address] [place], [address] RBC (Bld) [#/Vol] 3.62 10*6/uL Low 4.2-5.4 [facility] Comment on above: Performed By: #### L 500.4050, L501.5200, L100.0100 ####[facility] [address] [place], [address] RDW SD 49.3 fl High 35.1-43.9 [facility] Comment on above: Performed By: #### L 500.4050, L501.5200, L100.0100 ####[facility] [address] [place], [address] WBC (Bld) [#/Vol] 6.3 10*3/uL Normal 4.4-11.0 [facility] Comment on above: Performed By: #### L 500.4050, L501.5200, L100.0100 ####[facility] [address] [place], [address] Comprehensive Metabolic Prof [place] 10-20-2024 Albumin [Mass/Vol] 3.9 g/dL Normal 3.4-4.8 [facility] Comment on above: Performed By: #### L 500.4050, L501.5200, L100.0100 ####[facility] [address] [place], [address] Albumin/Globulin [Mass ratio] 1.5 {ratio} Normal 0.9-2.4 [facility] Comment on above: Performed By: #### L 500.4050, L501.5200, L100.0100 ####[facility] [address] [place], [address] ALK PHOS 115 U/L High 35-104 [facility] Comment on above: Performed By: #### L 500.4050, L501.5200, L100.0100 ####[facility] [address] [place], [address] ALT [Catalytic activity/Vol] 19 U/L Normal <=34 [facility] Comment on above: Performed By: #### L 500.4050, L501.5200, L100.0100 ####[facility] [address] [place], [address] AST [Catalytic activity/Vol] 17 U/L Normal <=31 [facility] Comment on above: Performed By: #### L 500.4050, L501.5200, L100.0100 ####[facility] [address] [place], [address] Bilirubin [Mass/Vol] 0.50 mg/dL Normal 0.00-1.30 [facility] Comment on above: Performed By: #### L 500.4050, L501.5200, L100.0100 ####[facility] [address] [place], [address] BUN/CRE 19.6 RATIO Normal 10-20 [facility] Comment on above: Performed By: #### L 500.4050, L501.5200, L100.0100 ####[facility] [address] [place], [address] Calcium [Mass/Vol] 9.3 mg/dL Normal 7.6-11.0 [facility] Comment on above: Performed By: #### L 500.4050, L501.5200, L100.0100 ####[facility] [address] [place], [address] Chloride [Moles/Vol] 102 mmol/L Normal 98-108 [facility] Comment on above: Performed By: #### L 500.4050, L501.5200, L100.0100 ####[facility] [address] [place], [address] CO2 [Moles/Vol] 23.5 mmol/L Normal 21.0-32.0 [facility] Comment on above: Performed By: #### L 500.4050, L501.5200, L100.0100 ####[facility] [address] [place], [address] Creatinine [Mass/Vol] 0.82 mg/dL Normal 0.70-1.20 [facility] Comment on above: Performed By: #### L 500.4050, L501.5200, L100.0100 ####[facility] [address] [place], [address] ECRCL 80.27 ml/min Normal 50-250 [facility] Comment on above: Performed By: #### L 500.4050, L501.5200, L100.0100 ####[facility] [address] [place], [address] GAP 12 Normal 5-15 [facility] Comment on above: Performed By: #### L 500.4050, L501.5200, L100.0100 ####[facility] [address] [place], [address] GFR/1.73 sq M.predicted among non-blacks MDRD (S/P/Bld) [Vol rate/Area] 80 mL/min/{1.73_m2} Normal >60 [facility] Comment on above: Result Comment: mL/m in/1.73m2 CKD-EPI Creatinine Equation (2020) Performed By: #### L 500.4050, L501.5200, L100.0100 ####[facility] [address] [place], [address] Globulin (S) [Mass/Vol] 2.6 g/dL Normal 2.2-4.2 [facility] Comment on above: Performed By: #### L 500.4050, L501.5200, L100.0100 ####[facility] [address] [place], [address] Glucose [Mass/Vol] 105 mg/dL High 70-99 [facility] Comment on above: Performed By: #### L 500.4050, L501.5200, L100.0100 ####[facility] [address] [place], [address] Potassium [Moles/Vol] 3.6 mmol/L Normal 3.3-5.1 [facility] Comment on above: Performed By: #### L 500.4050, L501.5200, L100.0100 ####[facility] [address] [place], [address] Sodium [Moles/Vol] 137 mmol/L Normal 133-145 [facility] Comment on above: Performed By: #### L 500.4050, L501.5200, L100.0100 ####[facility] [address] [place], [address] T PROT 6.4 g/dL Normal 5.9-8.4 [facility] Comment on above: Performed By: #### L 500.4050, L501.5200, L100.0100 ####[facility] [address] [place], [address] Urea nitrogen [Mass/Vol] 16 mg/dL Normal 4-19 [facility] Comment on above: Performed By: #### L 500.4050, L501.5200, L100.0100 ####[facility] [address] [place], [address] Magnesiumon 10-20-2024 Magnesium [Mass/Vol] 2.1 mg/dL Normal 1.5-2.2 [facility] Comment on above: Performed By: #### L 500.4050, L501.5200, L100.0100 ####[facility] [address] [place], [address] Oncology Visit Reporton 10-09 Oncology Visit Report Normal [facility] CBC W/Diff, Automatedon 09-10 Absolute Lymph 1.62 X10 3/uL Normal 0.83-4.51 [facility] Comment on above: Performed By: #### L 501.5200, L500.4050, L100.0100 ####[facility] [address] [place], [address] Absolute Neut 2.0 X10 3/uL Normal 2.0-7.7 [facility] Comment on above: Performed By: #### L 501.5200, L500.4050, L100.0100 ####[facility] [address] [place], [address] Basophils/100 WBC (Bld) 0.9 % Normal 0-1 [facility] Comment on above: Performed By: #### L 501.5200, L500.4050, L100.0100 ####[facility] [address] [place], [address] Eosinophils/100 WBC (Bld) 9.4 % High 0-5 [facility] Comment on above: Performed By: #### L 501.5200, L500.4050, L100.0100 ####[facility] [address] [place], [address] Erythrocyte distribution width (RBC) [Ratio] 14.0 % Normal 11.6-14.6 [facility] Comment on above: Performed By: #### L 501.5200, L500.4050, L100.0100 ####[facility] [address] [place], [address] Hematocrit (Bld) [Volume fraction] 32.3 % Low 37-47 [facility] Comment on above: Performed By: #### L 501.5200, L500.4050, L100.0100 ####[facility] [address] [place], [address] Hemoglobin (Bld) [Mass/Vol] 10.8 g/dL Low 12.0-15.0 [facility] Comment on above: Performed By: #### L 501.5200, L500.4050, L100.0100 ####[facility] [address] [place], [address] IG% 0.200 Normal 0.0-0.9 [facility] Comment on above: Result Comment: IG% - Immature Granulocytes (promyelocytes, myelocytes andmetamyelocytes) > 1% indicates that a LEFT SHIFT is Present. Performed By: #### L 501.5200, L500.4050, L100.0100 ####[facility] [address] [place], [address] Lymphocytes/100 WBC (Bld) 34.8 % Normal 19-41 [facility] Comment on above: Performed By: #### L 501.5200, L500.4050, L100.0100 ####[facility] [address] [place], [address] MCH (RBC) [Entitic mass] 30.3 pg Normal 27.0-32.0 [facility] Comment on above: Performed By: #### L 501.5200, L500.4050, L100.0100 ####[facility] [address] [place], [address] MCHC (RBC) [Mass/Vol] 33.4 g/dL Normal 32-36 [facility] Comment on above: Performed By: #### L 501.5200, L500.4050, L100.0100 ####[facility] [address] [place], [address] MCV (RBC) [Entitic vol] 90.7 fL Normal 81-99 [facility] Comment on above: Performed By: #### L 501.5200, L500.4050, L100.0100 ####[facility] [address] [place], [address] Monocytes/100 WBC (Bld) 11.8 % High 0-10 [facility] Comment on above: Performed By: #### L 501.5200, L500.4050, L100.0100 ####[facility] [address] [place], [address] Neutrophils/100 WBC (Bld) 42.9 % Low 47-70 [facility] Comment on above: Performed By: #### L 501.5200, L500.4050, L100.0100 ####[facility] [address] [place], [address] Nucleated RBC (Bld) [#/Vol] 0 10*3/uL Normal 0-5 [facility] Comment on above: Performed By: #### L 501.5200, L500.4050, L100.0100 ####[facility] [address] [place], [address] Platelet mean volume (Bld) [Entitic vol] 10.5 fL Normal 6.2-12.0 [facility] Comment on above: Performed By: #### L 501.5200, L500.4050, L100.0100 ####[facility] [address] [place], [address] Platelets (Bld) [#/Vol] 181 10*3/uL Normal 150-450 [facility] Comment on above: Performed By: #### L 501.5200, L500.4050, L100.0100 ####[facility] [address] [place], [address] RBC (Bld) [#/Vol] 3.56 10*6/uL Low 4.2-5.4 [facility] Comment on above: Performed By: #### L 501.5200, L500.4050, L100.0100 ####[facility] [address] [place], [address] RDW SD 45.5 fl High 35.1-43.9 [facility] Comment on above: Performed By: #### L 501.5200, L500.4050, L100.0100 ####[facility] [address] [place], [address] WBC (Bld) [#/Vol] 4.7 10*3/uL Normal 4.4-11.0 [facility] Comment on above: Performed By: #### L 501.5200, L500.4050, L100.0100 ####[facility] [address] [place], [address] Comprehensive Metabolic [facility] 10-06-2024 Albumin [Mass/Vol] 3.9 g/dL Normal 3.4-4.8 [facility] Comment on above: Performed By: #### L 501.5200, L500.4050, L100.0100 ####[facility] [address] [place], [address] Albumin/Globulin [Mass ratio] 1.4 {ratio} Normal 0.9-2.4 [facility] Comment on above: Performed By: #### L 501.5200, L500.4050, L100.0100 ####[facility] [address] [place], [address] ALK PHOS 114 U/L High 35-104 [facility] Comment on above: Performed By: #### L 501.5200, L500.4050, L100.0100 ####[facility] [address] [place], [address] ALT [Catalytic activity/Vol] 13 U/L Normal <=34 [facility] Comment on above: Performed By: #### L 501.5200, L500.4050, L100.0100 ####[facility] [address] [place], [address] AST [Catalytic activity/Vol] 18 U/L Normal <=31 [facility] Comment on above: Performed By: #### L 501.5200, L500.4050, L100.0100 ####[facility] [address] [place], [address] Bilirubin [Mass/Vol] 0.53 mg/dL Normal 0.00-1.30 [facility] Comment on above: Performed By: #### L 501.5200, L500.4050, L100.0100 ####[facility] [address] [place], [address] BUN/CRE 12.8 RATIO Normal 10-20 [facility] Comment on above: Performed By: #### L 501.5200, L500.4050, L100.0100 ####[facility] [address] [place], [address] Calcium [Mass/Vol] 9.0 mg/dL Normal 7.6-11.0 [facility] Comment on above: Performed By: #### L 501.5200, L500.4050, L100.0100 ####[facility] [address] [place], [address] Chloride [Moles/Vol] 104 mmol/L Normal 98-108 [facility] Comment on above: Performed By: #### L 501.5200, L500.4050, L100.0100 ####[facility] [address] [place], [address] CO2 [Moles/Vol] 23.5 mmol/L Normal 21.0-32.0 [facility] Comment on above: Performed By: #### L 501.5200, L500.4050, L100.0100 ####[facility] [address] [place], [address] Creatinine [Mass/Vol] 0.92 mg/dL Normal 0.70-1.20 [facility] Comment on above: Performed By: #### L 501.5200, L500.4050, L100.0100 ####[facility] [address] [place], [address] ECRCL 71.02 ml/min Normal 50-250 [facility] Comment on above: Performed By: #### L 501.5200, L500.4050, L100.0100 ####[facility] [address] [place], [address] GAP 13 Normal 5-15 [facility] Comment on above: Performed By: #### L 501.5200, L500.4050, L100.0100 ####[facility] [address] [place], [address] GFR/1.73 sq M.predicted among non-blacks MDRD (S/P/Bld) [Vol rate/Area] 69 mL/min/{1.73_m2} Normal >60 [facility] Comment on above: Result Comment: mL/m in/1.73m2 CKD-EPI Creatinine Equation (2020) Performed By: #### L 501.5200, L500.4050, L100.0100 ####[facility] [address] [place], [address] Globulin (S) [Mass/Vol] 2.7 g/dL Normal 2.2-4.2 [facility] Comment on above: Performed By: #### L 501.5200, L500.4050, L100.0100 ####[facility] [address] [place], [address] Glucose [Mass/Vol] 113 mg/dL High 70-99 [facility] Comment on above: Performed By: #### L 501.5200, L500.4050, L100.0100 ####[facility] [address] [place], [address] Potassium [Moles/Vol] 3.5 mmol/L Normal 3.3-5.1 [facility] Comment on above: Performed By: #### L 501.5200, L500.4050, L100.0100 ####[facility] [address] [place], [address] Sodium [Moles/Vol] 141 mmol/L Normal 133-145 [facility] Comment on above: Performed By: #### L 501.5200, L500.4050, L100.0100 ####[facility] [address] [place], [address] T PROT 6.7 g/dL Normal 5.9-8.4 [facility] Comment on above: Performed By: #### L 501.5200, L500.4050, L100.0100 ####[facility] [address] [place], [address] Urea nitrogen [Mass/Vol] 12 mg/dL Normal 4-19 [facility] Comment on above: Performed By: #### L 501.5200, L500.4050, L100.0100 ####[facility] [address] [place], [address] Magnesiumon 10-06-2024 Magnesium [Mass/Vol] 2.4 mg/dL High 1.5-2.2 [facility] Comment on above: Performed By: #### L 501.5200, L500.4050, L100.0100 ####[facility] [address] [place], [address] Oncology Visit Reporton 09-10 Oncology Visit Report Normal [facility] Phosphoruson 10-06-2024 Phosphate [Mass/Vol] 3.1 mg/dL Normal 2.7-4.5 [facility] Comment on above: Performed By: #### L 501.2300 ####[facility] [address] [place], [address] Basic Metabolic Profile (BMP )on 09-29-2024 BUN/CRE 26.6 RATIO High 10-20 [facility] Comment on above: Performed By: #### L 501.2300, L501.5200, L100.0100, L500.2500 ####[facility] [address] [place], [address] Calcium [Mass/Vol] 9.2 mg/dL Normal 7.6-11.0 [facility] Comment on above: Performed By: #### L 501.2300, L501.5200, L100.0100, L500.2500 ####[facility] [address] [place], [address] Chloride [Moles/Vol] 98 mmol/L Normal 98-108 [facility] Comment on above: Performed By: #### L 501.2300, L501.5200, L100.0100, L500.2500 ####[facility] [address] [place], [address] CO2 [Moles/Vol] 24.2 mmol/L Normal 21.0-32.0 [facility] Comment on above: Performed By: #### L 501.2300, L501.5200, L100.0100, L500.2500 ####[facility] [address] [place], [address] Creatinine [Mass/Vol] 0.95 mg/dL Normal 0.70-1.20 [facility] Comment on above: Performed By: #### L 501.2300, L501.5200, L100.0100, L500.2500 ####[facility] [address] [place], [address] ECRCL 68.78 ml/min Normal 50-250 [facility] Comment on above: Performed By: #### L 501.2300, L501.5200, L100.0100, L500.2500 ####[facility] [address] [place], [address] GAP 12 Normal 5-15 [facility] Comment on above: Performed By: #### L 501.2300, L501.5200, L100.0100, L500.2500 ####[facility] [address] [place], [address] GFR/1.73 sq M.predicted among non-blacks MDRD (S/P/Bld) [Vol rate/Area] 67 mL/min/{1.73_m2} Normal >60 [facility] Comment on above: Result Comment: mL/m in/1.73m2 CKD-EPI Creatinine Equation (2020) Performed By: #### L 501.2300, L501.5200, L100.0100, L500.2500 ####[facility] [address] [place], [address] Glucose [Mass/Vol] 128 mg/dL High 70-99 [facility] Comment on above: Performed By: #### L 501.2300, L501.5200, L100.0100, L500.2500 ####[facility] [address] [place], [address] Potassium [Moles/Vol] 3.4 mmol/L Normal 3.3-5.1 [facility] Comment on above: Performed By: #### L 501.2300, L501.5200, L100.0100, L500.2500 ####[facility] [address] [place], [address] Sodium [Moles/Vol] 135 mmol/L Normal 133-145 [facility] Comment on above: Performed By: #### L 501.2300, L501.5200, L100.0100, L500.2500 ####[facility] [address] [place], [address] Urea nitrogen [Mass/Vol] 25 mg/dL High 4-19 [facility] Comment on above: Performed By: #### L 501.2300, L501.5200, L100.0100, L500.2500 ####[facility] [address] [place], [address] CBC W/Diff, Automatedon 09-10 Absolute Lymph 1.23 X10 3/uL Normal 0.83-4.51 [facility] Comment on above: Performed By: #### L 501.2300, L501.5200, L100.0100, L500.2500 ####[facility] [address] [place], [address] Absolute Neut 4.6 X10 3/uL Normal 2.0-7.7 [facility] Comment on above: Performed By: #### L 501.2300, L501.5200, L100.0100, L500.2500 ####[facility] [address] [place], [address] Basophils/100 WBC (Bld) 0.4 % Normal 0-1 [facility] Comment on above: Performed By: #### L 501.2300, L501.5200, L100.0100, L500.2500 ####[facility] [address] [place], [address] Eosinophils/100 WBC (Bld) 10.0 % High 0-5 [facility] Comment on above: Performed By: #### L 501.2300, L501.5200, L100.0100, L500.2500 ####[facility] [address] [place], [address] Erythrocyte distribution width (RBC) [Ratio] 13.5 % Normal 11.6-14.6 [facility] Comment on above: Performed By: #### L 501.2300, L501.5200, L100.0100, L500.2500 ####[facility] [address] [place], [address] Hematocrit (Bld) [Volume fraction] 36.5 % Low 37-47 [facility] Comment on above: Performed By: #### L 501.2300, L501.5200, L100.0100, L500.2500 ####[facility] [address] [place], [address] Hemoglobin (Bld) [Mass/Vol] 12.5 g/dL Normal 12.0-15.0 [facility] Comment on above: Performed By: #### L 501.2300, L501.5200, L100.0100, L500.2500 ####[facility] [address] [place], [address] IG% 0.600 Normal 0.0-0.9 [facility] Comment on above: Result Comment: IG% - Immature Granulocytes (promyelocytes, myelocytes andmetamyelocytes) > 1% indicates that a LEFT SHIFT is Present. Performed By: #### L 501.2300, L501.5200, L100.0100, L500.2500 ####[facility] [address] [place], [address] Lymphocytes/100 WBC (Bld) 17.8 % Low 19-41 [facility] Comment on above: Performed By: #### L 501.2300, L501.5200, L100.0100, L500.2500 ####[facility] [address] [place], [address] MCH (RBC) [Entitic mass] 30.3 pg Normal 27.0-32.0 [facility] Comment on above: Performed By: #### L 501.2300, L501.5200, L100.0100, L500.2500 ####[facility] [address] [place], [address] MCHC (RBC) [Mass/Vol] 34.2 g/dL Normal 32-36 [facility] Comment on above: Performed By: #### L 501.2300, L501.5200, L100.0100, L500.2500 ####[facility] [address] [place], [address] MCV (RBC) [Entitic vol] 88.6 fL Normal 81-99 [facility] Comment on above: Performed By: #### L 501.2300, L501.5200, L100.0100, L500.2500 ####[facility] [address] [place], [address] Monocytes/100 WBC (Bld) 4.2 % Normal 0-10 [facility] Comment on above: Performed By: #### L 501.2300, L501.5200, L100.0100, L500.2500 ####[facility] [address] [place], [address] Neutrophils/100 WBC (Bld) 67.0 % Normal 47-70 [facility] Comment on above: Performed By: #### L 501.2300, L501.5200, L100.0100, L500.2500 ####[facility] [address] [place], [address] Nucleated RBC (Bld) [#/Vol] 0 10*3/uL Normal 0-5 [facility] Comment on above: Performed By: #### L 501.2300, L501.5200, L100.0100, L500.2500 ####[facility] [address] [place], [address] Platelet mean volume (Bld) [Entitic vol] 11.4 fL Normal 6.2-12.0 [facility] Comment on above: Performed By: #### L 501.2300, L501.5200, L100.0100, L500.2500 ####[facility] [address] [place], [address] Platelets (Bld) [#/Vol] 204 10*3/uL Normal 150-450 [facility] Comment on above: Performed By: #### L 501.2300, L501.5200, L100.0100, L500.2500 ####[facility] [address] [place], [address] RBC (Bld) [#/Vol] 4.12 10*6/uL Low 4.2-5.4 [facility] Comment on above: Performed By: #### L 501.2300, L501.5200, L100.0100, L500.2500 ####[facility] [address] [place], [address] RDW SD 43.9 fl Normal 35.1-43.9 [facility] Comment on above: Performed By: #### L 501.2300, L501.5200, L100.0100, L500.2500 ####[facility] [address] [place], [address] WBC (Bld) [#/Vol] 6.9 10*3/uL Normal 4.4-11.0 [facility] Comment on above: Performed By: #### L 501.2300, L501.5200, L100.0100, L500.2500 ####[facility] [address] [place], [address] Magnesiumon 09-29-2024 Magnesium [Mass/Vol] 2.1 mg/dL Normal 1.5-2.2 [facility] Comment on above: Performed By: #### L 501.2300, L501.5200, L100.0100, L500.2500 ####[facility] [address] [place], [address] Oncology Visit Reporton 09-10 Oncology Visit Report Normal [facility] Phosphoruson 09-29-2024 Phosphate [Mass/Vol] 2.2 mg/dL Low 2.7-4.5 [facility] Comment on above: Performed By: #### L 501.2300, L501.5200, L100.0100, L500.2500 ####[facility] [address] [place], [address] Carcinoembryonic Antigenon 0 09-23-2024 CEA 3.8 ng/mL Normal 0.0-4.7 [facility] Comment on above: Order Comment: ADD O N FROM EARLIER LABS Result Comment: Nons mokers <3.9 Smokers <5.6[employer] Electrochemiluminescence Immunoassay(ECLIA)Values obtained with different assay methods or kitscannot be used interchangeably. Results cannot beinterpreted as absolute evidence of the presence orabsence of malignant disease.Performed at: [employer] [id number] Director: Osei Busch PhD, Phone: [phone] Performed By: #### L 3100.2300 ####[facility] [address] [place], [address] CBC W/Diff, Automatedon 09-09 Absolute Lymph 1.57 X10 3/uL Normal 0.83-4.51 [facility] Comment on above: Performed By: #### L 500.4050, L501.5200, L100.0100 ####[facility] [address] [place], [address] Absolute Neut 4.3 X10 3/uL Normal 2.0-7.7 [facility] Comment on above: Performed By: #### L 500.4050, L501.5200, L100.0100 ####[facility] [address] [place], [address] Basophils/100 WBC (Bld) 1.0 % Normal 0-1 [facility] Comment on above: Performed By: #### L 500.4050, L501.5200, L100.0100 ####[facility] [address] [place], [address] Eosinophils/100 WBC (Bld) 8.2 % High 0-5 [facility] Comment on above: Performed By: #### L 500.4050, L501.5200, L100.0100 ####[facility] [address] [place], [address] Erythrocyte distribution width (RBC) [Ratio] 13.8 % Normal 11.6-14.6 [facility] Comment on above: Performed By: #### L 500.4050, L501.5200, L100.0100 ####[facility] [address] [place], [address] Hematocrit (Bld) [Volume fraction] 36.0 % Low 37-47 [facility] Comment on above: Performed By: #### L 500.4050, L501.5200, L100.0100 ####[facility] [address] [place], [address] Hemoglobin (Bld) [Mass/Vol] 11.9 g/dL Low 12.0-15.0 [facility] Comment on above: Performed By: #### L 500.4050, L501.5200, L100.0100 ####[facility] [address] [place], [address] IG% 0.400 Normal 0.0-0.9 [facility] Comment on above: Result Comment: IG% - Immature Granulocytes (promyelocytes, myelocytes andmetamyelocytes) > 1% indicates that a LEFT SHIFT is Present. Performed By: #### L 500.4050, L501.5200, L100.0100 ####[facility] [address] [place], [address] Lymphocytes/100 WBC (Bld) 22.2 % Normal 19-41 [facility] Comment on above: Performed By: #### L 500.4050, L501.5200, L100.0100 ####[facility] [address] [place], [address] MCH (RBC) [Entitic mass] 30.1 pg Normal 27.0-32.0 [facility] Comment on above: Performed By: #### L 500.4050, L501.5200, L100.0100 ####[facility] [address] [place], [address] MCHC (RBC) [Mass/Vol] 33.1 g/dL Normal 32-36 [facility] Comment on above: Performed By: #### L 500.4050, L501.5200, L100.0100 ####[facility] [address] [place], [address] MCV (RBC) [Entitic vol] 91.1 fL Normal 81-99 [facility] Comment on above: Performed By: #### L 500.4050, L501.5200, L100.0100 ####[facility] [address] [place], [address] Monocytes/100 WBC (Bld) 7.1 % Normal 0-10 [facility] Comment on above: Performed By: #### L 500.4050, L501.5200, L100.0100 ####[facility] [address] [place], [address] Neutrophils/100 WBC (Bld) 61.1 % Normal 47-70 [facility] Comment on above: Performed By: #### L 500.4050, L501.5200, L100.0100 ####[facility] [address] [place], [address] Nucleated RBC (Bld) [#/Vol] 0 10*3/uL Normal 0-5 [facility] Comment on above: Performed By: #### L 500.4050, L501.5200, L100.0100 ####[facility] [address] [place], [address] Platelet mean volume (Bld) [Entitic vol] 11.7 fL Normal 6.2-12.0 [facility] Comment on above: Performed By: #### L 500.4050, L501.5200, L100.0100 ####[facility] [address] [place], [address] Platelets (Bld) [#/Vol] 211 10*3/uL Normal 150-450 [facility] Comment on above: Performed By: #### L 500.4050, L501.5200, L100.0100 ####[facility] [address] [place], [address] RBC (Bld) [#/Vol] 3.95 10*6/uL Low 4.2-5.4 [facility] Comment on above: Performed By: #### L 500.4050, L501.5200, L100.0100 ####[facility] [address] [place], [address] RDW SD 46.5 fl High 35.1-43.9 [facility] Comment on above: Performed By: #### L 500.4050, L501.5200, L100.0100 ####[facility] [address] [place], [address] WBC (Bld) [#/Vol] 7.1 10*3/uL Normal 4.4-11.0 [facility] Comment on above: Performed By: #### L 500.4050, L501.5200, L100.0100 ####[facility] [address] [place], [address] Comprehensive Metabolic Prof ilon 09-22-2024 Albumin [Mass/Vol] 4.1 g/dL Normal 3.4-4.8 [facility] Comment on above: Performed By: #### L 500.4050, L501.5200, L100.0100 ####[facility] [address] [place], [address] Albumin/Globulin [Mass ratio] 1.5 {ratio} Normal 0.9-2.4 [facility] Comment on above: Performed By: #### L 500.4050, L501.5200, L100.0100 ####[facility] [address] [place], [address] ALK PHOS 107 U/L High 35-104 [facility] Comment on above: Performed By: #### L 500.4050, L501.5200, L100.0100 ####[facility] [address] [place], [address] ALT [Catalytic activity/Vol] 15 U/L Normal <=34 [facility] Comment on above: Performed By: #### L 500.4050, L501.5200, L100.0100 ####[facility] [address] [place], [address] AST [Catalytic activity/Vol] 16 U/L Normal <=31 [facility] Comment on above: Performed By: #### L 500.4050, L501.5200, L100.0100 ####[facility] [address] [place], [address] Bilirubin [Mass/Vol] 0.36 mg/dL Normal 0.00-1.30 [facility] Comment on above: Performed By: #### L 500.4050, L501.5200, L100.0100 ####[facility] [address] [place], [address] BUN/CRE 21.9 RATIO High 10-20 [facility] Comment on above: Performed By: #### L 500.4050, L501.5200, L100.0100 ####[facility] [address] [place], [address] Calcium [Mass/Vol] 9.4 mg/dL Normal 7.6-11.0 [facility] Comment on above: Performed By: #### L 500.4050, L501.5200, L100.0100 ####[facility] [address] [place], [address] Chloride [Moles/Vol] 104 mmol/L Normal 98-108 [facility] Comment on above: Performed By: #### L 500.4050, L501.5200, L100.0100 ####[facility] [address] [place], [address] CO2 [Moles/Vol] 24.4 mmol/L Normal 21.0-32.0 [facility] Comment on above: Performed By: #### L 500.4050, L501.5200, L100.0100 ####[facility] [address] [place], [address] Creatinine [Mass/Vol] 0.87 mg/dL Normal 0.70-1.20 [facility] Comment on above: Performed By: #### L 500.4050, L501.5200, L100.0100 ####[facility] [address] [place], [address] ECRCL 76.02 ml/min Normal 50-250 [facility] Comment on above: Performed By: #### L 500.4050, L501.5200, L100.0100 ####[facility] [address] [place], [address] GAP 11 Normal 5-15 [facility] Comment on above: Performed By: #### L 500.4050, L501.5200, L100.0100 ####[facility] [address] [place], [address] GFR/1.73 sq M.predicted among non-blacks MDRD (S/P/Bld) [Vol rate/Area] 74 mL/min/{1.73_m2} Normal >60 [facility] Comment on above: Result Comment: mL/m in/1.73m2 CKD-EPI Creatinine Equation (2020) Performed By: #### L 500.4050, L501.5200, L100.0100 ####[facility] [address] [place], [address] Globulin (S) [Mass/Vol] 2.7 g/dL Normal 2.2-4.2 [facility] Comment on above: Performed By: #### L 500.4050, L501.5200, L100.0100 ####[facility] [address] [place], [address] Glucose [Mass/Vol] 135 mg/dL High 70-99 [facility] Comment on above: Performed By: #### L 500.4050, L501.5200, L100.0100 ####[facility] [address] [place], [address] Potassium [Moles/Vol] 3.6 mmol/L Normal 3.3-5.1 [facility] Comment on above: Performed By: #### L 500.4050, L501.5200, L100.0100 ####[facility] [address] [place], [address] Sodium [Moles/Vol] 139 mmol/L Normal 133-145 [facility] Comment on above: Performed By: #### L 500.4050, L501.5200, L100.0100 ####[facility] [address] [place], [address] T PROT 6.8 g/dL Normal 5.9-8.4 [facility] Comment on above: Performed By: #### L 500.4050, L501.5200, L100.0100 ####[facility] [address] [place], [address] Urea nitrogen [Mass/Vol] 19 mg/dL Normal 4-19 [facility] Comment on above: Performed By: #### L 500.4050, L501.5200, L100.0100 ####[facility] [address] [place], [address] Magnesiumon 09-22-2024 Magnesium [Mass/Vol] 2.1 mg/dL Normal 1.5-2.2 [facility] Comment on above: Performed By: #### L 500.4050, L501.5200, L100.0100 ####[facility] [address] [place], [address] Oncology Visit Reporton 09-09 Oncology Visit Report Normal [facility] Serum or plasma carcinoembry onic antigen measurement (mass/volume)Ordered By: Antoni Leach on 09-22-2024 Carcinoembryonic Ag [Mass/Vol] 3.8 ng/mL 0.0-4.7 [facility] Comment on above: Nonsmokers <3.9 Smok ers <5.6[employer] Electrochemiluminescence Immunoassay(ECLIA)Values obtained with different assay methods or kitscannot be used interchangeably. Results cannot beinterpreted as absolute evidence of the presence orabsence of malignant disease.Performed at: [employer] [id number] Director: Osei Busch PhD, Phone: [phone] CXR for Line Placementon CXR for Line Placement Normal [facility] Discharge Instructionon Discharge Instruction Normal [facility] MR/POSTOP.ANEon 09-17-2024 MR/POSTOP.ANE Normal [facility] MR/BEIJMABS5gr 09-17-2024 MR/POSTOPAN2 Normal [facility] Operative Reporton Operative Report Normal [facility] CNPNon 09-12-2024 CNPN Telephone ([facility]) -- TRUDY CALLE ([id number]) 1960 F Date Time Provider Department 09/12/24 LUIS F HURTADO [facility] During your visit today, we recorded the following information about you: Luis F Hurtado RN 09/12/2024 1:40 PM Signed [facility] ADMINISTRATIVE SUPPORT SPECIALIST ONE MONTH FOLLOW UP PHONE CALL PHONE [...] RN DATE: 09/12/2024 TIME: 1:39 PM CONTACT #:[phone] Allergies As of Date: 09/12/2024 (No Known Allergies) Date Reviewed: 08/29/2024 Reviewed by: Hannah Roberts MA - Fully Assessed 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] Prescriptions as of 09/12/2024 - levothyroxine 150 [...] LUIS F HURTADO on 09/12/24 Normal [facility] Oncology Visit Reporton Oncology Visit Report Normal [facility] Surgery Visit Reporton 09-08 Surgery Visit Report Normal [facility] Carcinoembryonic Antigenon 0 09-06-2024 CEA 5.6 ng/mL High 0.0-4.7 [facility] Comment on above: Result Comment: Nons mokers <3.9 Smokers <5.6[employer] Electrochemiluminescence Immunoassay(ECLIA)Values obtained with different assay methods or kitscannot be used interchangeably. Results cannot beinterpreted as absolute evidence of the presence orabsence of malignant disease.Performed at: [facility] [id number] Director: Osei Busch PhD, Phone: [phone] Performed By: #### L 100.9950, L503.6550, L500.4050, L100.0100, L501.2300, L3100.2300, L501.5200, L503.6030 ####[facility] [address] [place], [address] Absolute neutrophil countOrd ered By: Antoni Leach on 09-04-2024 Neutrophils (Bld) [#/Vol] 4.8 10*3/uL 2.0-7.7 [facility] Anion gap in Serum or Plasma Ordered By: Antoni Leach on 09-04-2024 Anion gap [Moles/Vol] 15 mmol/L 5-15 [facility] Automated blood erythrocyte countOrdered By: Antoni Leach on 09-04-2024 RBC (Bld) [#/Vol] 3.84 10*6/uL Low 4.2-5.4 [facility] Comment on above: Performed By: #### L 100.9950, L503.6550, L500.4050, L100.0100, L501.2300, L3100.2300, L501.5200, L503.6030 ####[facility] [address] [facility] [place], [place], [id number] Automated blood hematocrit ( percentage)Ordered By: Antoni Leach on 09-04-2024 Hematocrit (Bld) [Volume fraction] 35.2 % Low 37-47 [facility] Comment on above: Performed By: #### L 100.9950, L503.6550, L500.4050, L100.0100, L501.2300, L3100.2300, L501.5200, L503.6030 ####[facility] [address] [place], [place], [phone] Automated lymphocyte count a s percentage of total leukocytesOrdered By: Antoni Leach on 09-04-2024 Lymphocytes/100 WBC (Bld) 24.1 % Normal 19-41 [facility] Comment on above: Performed By: #### L 100.9950, L503.6550, L500.4050, L100.0100, L501.2300, L3100.2300, L501.5200, L503.6030 ####[facility] [address] [place], [place], [phone] BUN/creatinine ratioOrdered By: Antoni Leach on 09-04-2024 Urea nitrogen/Creatinine [Mass ratio] 22.1 mg/mg High 10-20 [facility] Basophil percentageOrdered B y: Antoni Leach on 09-04-2024 Basophils/100 WBC (Bld) 0.8 % Normal 0-1 [facility] Comment on above: Performed By: #### L 100.9950, L503.6550, L500.4050, L100.0100, L501.2300, L3100.2300, L501.5200, L503.6030 ####[facility] [address] [place], [place], [phone]45) Bilirubin, totalOrdered By: Antoni Leach on 09-04-2024 Bilirubin [Mass/Vol] 0.40 mg/dL 0.00-1.30 [facility] CBC W/Diff, Automatedon 08-10 Absolute Lymph 1.85 X10 3/uL Normal 0.83-4.51 [facility] Comment on above: Performed By: #### L 100.9950, L503.6550, L500.4050, L100.0100, L501.2300, L3100.2300, L501.5200, L503.6030 ####[facility] [address] [place], [place], [phone](365) Absolute Neut 4.8 X10 3/uL Normal 2.0-7.7 [facility] Comment on above: Performed By: #### L 100.9950, L503.6550, L500.4050, L100.0100, L501.2300, L3100.2300, L501.5200, L503.6030 ####[facility] [address] [place], [place], [phone](206) IG% 0.300 Normal 0.0-0.9 [facility] Comment on above: Result Comment: IG% - Immature Granulocytes (promyelocytes, myelocytes andmetamyelocytes) > 1% indicates that a LEFT SHIFT is Present. Performed By: #### L 100.9950, L503.6550, L500.4050, L100.0100, L501.2300, L3100.2300, L501.5200, L503.6030 ####[facility] [address] [place], [place], [phone] Nucleated RBC (Bld) [#/Vol] 0 10*3/uL Normal 0-5 [facility] Comment on above: Performed By: #### L 100.9950, L503.6550, L500.4050, L100.0100, L501.2300, L3100.2300, L501.5200, L503.6030 ####[facility] [address] [place], [address] RDW SD 46.5 fl High 35.1-43.9 [facility] Comment on above: Performed By: #### L 100.9950, L503.6550, L500.4050, L100.0100, L501.2300, L3100.2300, L501.5200, L503.6030 ####[facility] [address] [place], [address] Calculated total iron bindin g capacityOrdered By: Antoni Leach on 09-04-2024 Total Iron Binding Capacity 249 ug/dL Low 250-450 [facility] Carbon dioxide, total [Moles /volume] in Central venous bloodOrdered By: Antoni Leach on 09-04-2024 CO2 [Moles/Vol] 20.2 mmol/L Low 21.0-32.0 [facility] Chloride assayOrdered By: Lisa Leach on 09-04-2024 Chloride [Moles/Vol] 104 mmol/L 98-108 [facility] Comprehensive Metabolic Prof ilon 09-04-2024 Albumin [Mass/Vol] 3.9 g/dL Normal 3.4-4.8 [facility] Comment on above: Performed By: #### L 100.9950, L503.6550, L500.4050, L100.0100, L501.2300, L3100.2300, L501.5200, L503.6030 ####[facility] [address] [place], [place], [phone] Albumin/Globulin [Mass ratio] 1.4 {ratio} Normal 0.9-2.4 [facility] Comment on above: Performed By: #### L 100.9950, L503.6550, L500.4050, L100.0100, L501.2300, L3100.2300, L501.5200, L503.6030 ####[facility] [address] [place], [place], [phone] ALK PHOS 111 U/L High 35-104 [facility] Comment on above: Performed By: #### L 100.9950, L503.6550, L500.4050, L100.0100, L501.2300, L3100.2300, L501.5200, L503.6030 ####[facility] [address] [place], [place], [phone] ALT [Catalytic activity/Vol] 26 U/L Normal <=34 [facility] Comment on above: Performed By: #### L 100.9950, L503.6550, L500.4050, L100.0100, L501.2300, L3100.2300, L501.5200, L503.6030 ####[facility] [address] [place], [place], [phone] AST [Catalytic activity/Vol] 17 U/L Normal <=31 [facility] Comment on above: Performed By: #### L 100.9950, L503.6550, L500.4050, L100.0100, L501.2300, L3100.2300, L501.5200, L503.6030 ####[facility] [address] [place], [place], [phone] Bilirubin [Mass/Vol] 0.40 mg/dL Normal 0.00-1.30 [facility] Comment on above: Performed By: #### L 100.9950, L503.6550, L500.4050, L100.0100, L501.2300, L3100.2300, L501.5200, L503.6030 ####[facility] [address] [place], [address] BUN/CRE 22.1 RATIO High 10-20 [facility] Comment on above: Performed By: #### L 100.9950, L503.6550, L500.4050, L100.0100, L501.2300, L3100.2300, L501.5200, L503.6030 ####[facility] [address] [place], [address] Calcium [Mass/Vol] 9.0 mg/dL Normal 7.6-11.0 [facility] Comment on above: Performed By: #### L 100.9950, L503.6550, L500.4050, L100.0100, L501.2300, L3100.2300, L501.5200, L503.6030 ####[facility] [address] [place], [address] Chloride [Moles/Vol] 104 mmol/L Normal 98-108 [facility] Comment on above: Performed By: #### L 100.9950, L503.6550, L500.4050, L100.0100, L501.2300, L3100.2300, L501.5200, L503.6030 ####[facility] [address] [place], [address] CO2 [Moles/Vol] 20.2 mmol/L Low 21.0-32.0 [facility] Comment on above: Performed By: #### L 100.9950, L503.6550, L500.4050, L100.0100, L501.2300, L3100.2300, L501.5200, L503.6030 ####[facility] [address] [place], [place], [phone]) Creatinine [Mass/Vol] 0.83 mg/dL Normal 0.70-1.20 [facility] Comment on above: Performed By: #### L 100.9950, L503.6550, L500.4050, L100.0100, L501.2300, L3100.2300, L501.5200, L503.6030 ####[facility] [address] [place], [place], [phone]) ECRCL 79.88 ml/min Normal 50-250 [facility] Comment on above: Performed By: #### L 100.9950, L503.6550, L500.4050, L100.0100, L501.2300, L3100.2300, L501.5200, L503.6030 ####[facility] [address] [place], [place], [phone]37) GAP 15 Normal 5-15 [facility] Comment on above: Performed By: #### L 100.9950, L503.6550, L500.4050, L100.0100, L501.2300, L3100.2300, L501.5200, L503.6030 ####[facility] [address] [place], [place], [phone] GFR/1.73 sq M.predicted among non-blacks MDRD (S/P/Bld) [Vol rate/Area] 79 mL/min/{1.73_m2} Normal >60 [facility] Comment on above: Result Comment: mL/m in/1.73m2 CKD-EPI Creatinine Equation (2020) Performed By: #### L 100.9950, L503.6550, L500.4050, L100.0100, L501.2300, L3100.2300, L501.5200, L503.6030 ####[facility] [address] [place], [address] Globulin (S) [Mass/Vol] 2.8 g/dL Normal 2.2-4.2 [facility] Comment on above: Performed By: #### L 100.9950, L503.6550, L500.4050, L100.0100, L501.2300, L3100.2300, L501.5200, L503.6030 ####[facility] [address] [place], [address] Glucose [Mass/Vol] 87 mg/dL Normal 70-99 [facility] Comment on above: Performed By: #### L 100.9950, L503.6550, L500.4050, L100.0100, L501.2300, L3100.2300, L501.5200, L503.6030 ####[facility] [address] [place], [address] Potassium [Moles/Vol] 3.8 mmol/L Normal 3.3-5.1 [facility] Comment on above: Performed By: #### L 100.9950, L503.6550, L500.4050, L100.0100, L501.2300, L3100.2300, L501.5200, L503.6030 ####[facility] [address] [place], [address] Sodium [Moles/Vol] 139 mmol/L Normal 133-145 [facility] Comment on above: Performed By: #### L 100.9950, L503.6550, L500.4050, L100.0100, L501.2300, L3100.2300, L501.5200, L503.6030 ####[facility] [address] [place], [address] T PROT 6.7 g/dL Normal 5.9-8.4 [facility] Comment on above: Performed By: #### L 100.9950, L503.6550, L500.4050, L100.0100, L501.2300, L3100.2300, L501.5200, L503.6030 ####[facility] [address] [place], [address] Urea nitrogen [Mass/Vol] 18 mg/dL Normal 4-19 [facility] Comment on above: Performed By: #### L 100.9950, L503.6550, L500.4050, L100.0100, L501.2300, L3100.2300, L501.5200, L503.6030 ####[facility] [address] [place], [address] Eosinophil percentageOrdered By: Antoni Leach on 09-04-2024 Eosinophils/100 WBC (Bld) 5.7 % High 0-5 [facility] Comment on above: Performed By: #### L 100.9950, L503.6550, L500.4050, L100.0100, L501.2300, L3100.2300, L501.5200, L503.6030 ####[facility] [address] [place], [address] Erythrocyte distribution wid th (RBC) [Ratio]Ordered By: Antoni Leach on 09-04-2024 Erythrocyte distribution width (RBC) [Entitic vol] 46.5 fL High 35.1-43.9 [facility] Erythrocyte distribution wid th ratioOrdered By: Antoni Leach on 09-04-2024 Erythrocyte distribution width (RBC) [Ratio] 13.8 % Normal 11.6-14.6 [facility] Comment on above: Performed By: #### L 100.9950, L503.6550, L500.4050, L100.0100, L501.2300, L3100.2300, L501.5200, L503.6030 ####[facility] [address] [place], [address] Estimation of creatinine kathy aranceOrdered By: Antoni Leach on 09-04-2024 Estimated Creatinine Clearance Calc 79.88 ml/min 50-250 [facility] Ferritinon 09-04-2024 Ferritin [Mass/Vol] 319 ng/mL Normal 22-378 [facility] Comment on above: Performed By: #### L 100.9950, L503.6550, L500.4050, L100.0100, L501.2300, L3100.2300, L501.5200, L503.6030 ####[facility] [address] [place], [place], [phone] GFR/1.73 sq M.predicted jody g non-blacks MDRD (S/P/Bld) [Vol rate/Area]Ordered By: Antoni Leach on 09-04-2024 Estimated GFR (MDRD) Non-Af Amer 79 >60 [facility] Comment on above: mL/min/1.73m2 CKD-EP I Creatinine Equation (2020) Hemoglobin (Reticulocytes) [ Entitic mass]Ordered By: Antoni Leach on 09-04-2024 Reticulocyte Hemoglobin Equivalent 33.0 pg 30-35 [facility] Hemoglobin measurementOrdere d By: Antoni Leach on 09-04-2024 Hemoglobin (Bld) [Mass/Vol] 11.9 g/dL Low 12.0-15.0 [facility] Comment on above: Performed By: #### L 100.9950, L503.6550, L500.4050, L100.0100, L501.2300, L3100.2300, L501.5200, L503.6030 ####[facility] [address] [place], [address] Immature granulocytes/100 WB C Auto (Bld)Ordered By: Antoni Leach on 09-04-2024 Immature granulocytes/100 WBC (Bld) 0.300 % 0.0-0.9 [facility] Comment on above: IG% - Immature Granu locytes (promyelocytes, myelocytes and metamyelocytes) > 1% indicates that a LEFT SHIFT is Present. Immature reticulocyte fracti onOrdered By: Antoni Haylee on 09-04-2024 Immature Reticulocyte Fraction 15.80 % 3.00-15.90 [facility] Iron (Unsp spec) [Mass/Mass] Ordered By: Antoni Rmjose manuel on 09-04-2024 Iron [Mass/Vol] 54 ug/dL 50-170 [facility] Iron measurement (mass/mass) Ordered By: Antoni Rmjose manuel on 09-04-2024 Iron (Unsp spec) [Mass/Mass] 54 ug/dL 50-170 [facility] Iron saturation [Mass fracti on]Ordered By: Antoni Rmjose manuel on 09-04-2024 Iron Saturation 22.0 % -59 [facility] Iron+Iron Binding Capacityon 09-04-2024 Iron [Mass/Vol] 54 ug/dL Normal 50-170 [facility] Comment on above: Performed By: #### L 100.9950, L503.6550, L500.4050, L100.0100, L501.2300, L3100.2300, L501.5200, L503.6030 ####[facility] [address] [place], [place], [phone] IRON SATURATION 22.0 Normal -59 [facility] Comment on above: Performed By: #### L 100.9950, L503.6550, L500.4050, L100.0100, L501.2300, L3100.2300, L501.5200, L503.6030 ####[facility] [address] [place], [address] TIBC 249 ug/dL Low 250-450 [facility] Comment on above: Performed By: #### L 100.9950, L503.6550, L500.4050, L100.0100, L501.2300, L3100.2300, L501.5200, L503.6030 ####[facility] [address] [place], [address] UIBC 195 ug/dL Low 228-428 [facility] Comment on above: Performed By: #### L 100.9950, L503.6550, L500.4050, L100.0100, L501.2300, L3100.2300, L501.5200, L503.6030 ####[facility] [address] [place], [address] Laboratory - Chemistry and C hemistry - challengeOrdered By: Antoni Leach on 09-04-2024 AST [Catalytic activity/Vol] 17 U/L <32 [facility] Lymphocytes Auto (Unsp spec) [#/Vol]Ordered By: Antoni Leahc on 09-04-2024 Lymphocytes (Bld) [#/Vol] 1.85 10*3/uL 0.83-4.51 [facility] MCV (mean corpuscular volume ) determinationOrdered By: Antoni Leach on 09-04-2024 MCV (RBC) [Entitic vol] 91.7 fL Normal 81-99 [facility] Comment on above: Performed By: #### L 100.9950, L503.6550, L500.4050, L100.0100, L501.2300, L3100.2300, L501.5200, L503.6030 ####[facility] [address] [place], [address] Magnesiumon 09-04-2024 Magnesium [Mass/Vol] 2.1 mg/dL Normal 1.5-2.2 [facility] Comment on above: Performed By: #### L 100.9950, L503.6550, L500.4050, L100.0100, L501.2300, L3100.2300, L501.5200, L503.6030 ####[facility] [address] [place], [place], [id number] Magnesium (Unsp spec) [Mass/ Vol]Ordered By: Antoni Leach on 09-04-2024 Magnesium [Mass/Vol] 2.1 mg/dL 1.5-2.2 [facility] Mean corpuscular hemoglobin (MCH) determinationOrdered By: Antoni Leach on 09-04-2024 MCH (RBC) [Entitic mass] 31.0 pg Normal 27.0-32.0 [facility] Comment on above: Performed By: #### L 100.9950, L503.6550, L500.4050, L100.0100, L501.2300, L3100.2300, L501.5200, L503.6030 ####[facility] [address] [place], [place], [id number] Mean corpuscular hemoglobin concentration (MCHC) determinationOrdered By: Antoni Leach on 09-04-2024 MCHC (RBC) [Mass/Vol] 33.8 g/dL Normal 32-36 [facility] Comment on above: Performed By: #### L 100.9950, L503.6550, L500.4050, L100.0100, L501.2300, L3100.2300, L501.5200, L503.6030 ####[facility] [address] [place], [address] Mean platelet volume determi nationOrdered By: Antoni Leach on 09-04-2024 Platelet mean volume (Bld) [Entitic vol] 10.9 fL Normal 6.2-12.0 [facility] Comment on above: Performed By: #### L 100.9950, L503.6550, L500.4050, L100.0100, L501.2300, L3100.2300, L501.5200, L503.6030 ####[facility] [address] [place], [place], [phone] Monocyte percentageOrdered B y: Antoni Leach on 09-04-2024 Monocytes/100 WBC (Bld) 7.2 % Normal 0-10 [facility] Comment on above: Performed By: #### L 100.9950, L503.6550, L500.4050, L100.0100, L501.2300, L3100.2300, L501.5200, L503.6030 ####[facility] [address] [place], [address] Neutrophil percentageOrdered By: Antoni Leach on 09-04-2024 Neutrophils/100 WBC (Bld) 61.9 % Normal 47-70 [facility] Comment on above: Performed By: #### L 100.9950, L503.6550, L500.4050, L100.0100, L501.2300, L3100.2300, L501.5200, L503.6030 ####[facility] [address] [place], [address] No Panel InformationOrdered By: Antoni Leach on 09-04-2024 Unsaturated Iron Binding Capacity 195 ug/dL Low 228-428 [facility] Nucleated red blood cell per centageOrdered By: Antoni Leach on 09-04-2024 Nucleated RBC/100 WBC (Bld) [Ratio] 0 % 0-5 [facility] Oncology Visit Reporton 08-10 Oncology Visit Report Normal [facility] Phosphoruson 09-04-2024 Phosphate [Mass/Vol] 3.0 mg/dL Normal 2.7-4.5 [facility] Comment on above: Performed By: #### L 100.9950, L503.6550, L500.4050, L100.0100, L501.2300, L3100.2300, L501.5200, L503.6030 ####[facility] [address] [place], [address] Platelet countOrdered By: Lisa Leach on 09-04-2024 Platelets (Bld) [#/Vol] 323 10*3/uL Normal 150-450 [facility] Comment on above: Performed By: #### L 100.9950, L503.6550, L500.4050, L100.0100, L501.2300, L3100.2300, L501.5200, L503.6030 ####[facility] [address] [place], [address] Potassium (Unsp spec) [Mass/ Vol]Ordered By: Antoni Leach on 09-04-2024 Potassium [Moles/Vol] 3.8 mmol/L 3.3-5.1 [facility] Retic Panelon 09-04-2024 IM RET FRACTION 15.80 Normal 3.00-15.90 [facility] Comment on above: Performed By: #### L 100.9950, L503.6550, L500.4050, L100.0100, L501.2300, L3100.2300, L501.5200, L503.6030 ####[facility] [address] [place], [address] RET-HE 33.0 pg Normal - [facility] Comment on above: Performed By: #### L 100.9950, L503.6550, L500.4050, L100.0100, L501.2300, L3100.2300, L501.5200, L503.6030 ####[facility] [address] [place], [address] Retic Count 2.07 High 0.5-1.5 [facility] Comment on above: Performed By: #### L 100.9950, L503.6550, L500.4050, L100.0100, L501.2300, L3100.2300, L501.5200, L503.6030 ####[facility] [address] [place], [address] Reticulocyte hemoglobin equi valent (RET-He) measurementOrdered By: Antoni Leach on 09-04-2024 Hemoglobin (Reticulocytes) [Entitic mass] 33.0 pg - [facility] Reticulocytes Auto (Bld) [#/ Vol]Ordered By: Antoni Leach on 09-04-2024 Reticulocyte Count 2.07 % High 0.5-1.5 [facility] Reticulocytes/100 RBC (Bld) 2.07 % High 0.5-1.5 [facility] Serum creatinine measurement (mass/volume)Ordered By: Antoni Leach on 09-04-2024 Creatinine [Mass/Vol] 0.83 mg/dL 0.70-1.20 [facility] Serum globulin measurementOr dered By: Antoni Leach on 09-04-2024 Globulin (S) [Mass/Vol] 2.8 g/dL 2.2-4.2 [facility] Serum glucose measurement (m ass/volume)Ordered By: Antoni Leach on 09-04-2024 Glucose [Mass/Vol] 87 mg/dL 70-99 [facility] Serum or plasma alanine zhu otransferase (ALT) measurementOrdered By: Antoni Leach on 09-04-2024 ALT [Catalytic activity/Vol] 26 U/L <35 [facility] Serum or plasma albumin sourav urement (mass/volume)Ordered By: Antoni Leach on 09-04-2024 Albumin [Mass/Vol] 3.9 g/dL 3.4-4.8 [facility] Serum or plasma albumin/glob ulin mass ratioOrdered By: Antoni Leach on 09-04-2024 Albumin/Globulin [Mass ratio] 1.4 {ratio} 0.9-2.4 [facility] Serum or plasma alkaline omid sphatase measurementOrdered By: Antoni Leach on 09-04-2024 ALP [Catalytic activity/Vol] 111 U/L High 35-104 [facility] Serum or plasma calcium sourav urement (mass/volume)Ordered By: Antoni Leach on 09-04-2024 Calcium [Mass/Vol] 9.0 mg/dL 7.6-11.0 [facility] Serum or plasma ferritin darin surement (mass/volume)Ordered By: Antoni Leach on 09-04-2024 Ferritin [Mass/Vol] 319 ng/mL 22-378 [facility] Serum or plasma iron saturat ion measurement (mass fraction)Ordered By: Antoni Leach on 09-04-2024 Iron saturation [Mass fraction] 22.0 % 13-59 [facility] Serum or plasma urea nitroge n measurement (mass/volume)Ordered By: Antoni Haylee on 09-04-2024 Urea nitrogen [Mass/Vol] 18 mg/dL 4-19 [facility] Serum phosphorus measurement Ordered By: Antoni Rmjose manuel on 09-04-2024 Phosphorus Level 3.0 mg/dL 2.7-4.5 [facility] Sodium levelOrdered By: Sarah Rmjose manuel on 09-04-2024 Sodium [Moles/Vol] 139 mmol/L 133-145 [facility] Total proteinOrdered By: Colby wilburn Haylee on 09-04-2024 Protein [Mass/Vol] 6.7 g/dL 5.9-8.4 [facility] White blood cell (WBC) count Ordered By: Antoni Rmjose manuel on 09-04-2024 WBC (Bld) [#/Vol] 7.7 10*3/uL Normal 4.4-11.0 [facility] Comment on above: Performed By: #### L 100.9950, L503.6550, L500.4050, L100.0100, L501.2300, L3100.2300, L501.5200, L503.6030 ####[facility] [address] [place], [place], [phone] CNOVon 08-29-2024 CNOV Office Visit (ESTEFANI 3) -- TRUDY CALLE ([id number]) 1960 F Date Time Provider Department 08/29/24 11:00 AM VIBHA FLORES During your visit today, we recorded the following information about you: Pulse Blood pressure Weight 90/minute 138/84 93 kg Vibha Flores MD 08/29/2024 1:02 PM Signed Vibha Flores M.D. Colon AND Rectal Surgery [address] [facility], [address] [place] [address] CC: rectosigmoid cancer HPI: Trudy Calle is [...] RECTUM: RESECTIO (more content not included)... 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 Address: [address] [place] [address] Performed By: #### 2 4321-2 #### [facility] CLIA [id number] [address] [place] [address] [place] Calcium [Mass/Vol] 8.6 mg/dL Normal 8.5-10.2 [facility] Comment on above: Order Comment: Speci men Type: BLOOD SPECIMEN Ordering Facility: [facility] Address: [address] [place] [address] Performed By: #### 2 4321-2 #### [facility] CLIA [id number] [address] [place] [address] [place] Chloride [Moles/Vol] 104 mmol/L Normal 98-107 [facility] Comment on above: Order Comment: Speci men Type: BLOOD SPECIMEN Ordering Facility: [facility] Address: [address] [place] [address] Performed By: #### 2 4321-2 #### [facility] CLIA [id number] [address] [place] [address] [place] CO2 [Moles/Vol] 24 mmol/L Normal 22-30 [facility] Comment on above: Order Comment: Speci men Type: BLOOD SPECIMEN Ordering Facility: [facility] Address: [address] [place] [address] Performed By: #### 2 4321-2 #### [facility] CLIA [id number] [address] [place] [address] [place] Creatinine [Mass/Vol] 1.12 mg/dL High 0.58-0.96 [facility] Comment on above: Order Comment: Speci men Type: BLOOD SPECIMEN Ordering Facility: [facility] Address: [address] [place] [address] Performed By: #### 2 4321-2 #### [facility] CLIA [id number] [address] Creatinine and Glomerular filtration rate.predicted panel (S/P/Bld) 55 mL/min/1.73m??? Low >=60 [facility] Comment on above: Order Comment: Effie aguayo Type: BLOOD SPECIMEN Ordering Facility: [facility] Address: [address] [place] [address] Result Comment: Devika mated Glomerular Filtration Rate [...] GFR. Performed By: #### 2 4321-2 #### [facility] CLIA [id number] [address] [place] [address] [place] Glucose [Mass/Vol] 93 mg/dL Normal 74-99 [facility] Comment on above: Order Comment: Effie aguayo Type: BLOOD SPECIMEN Ordering Facility: [facility] Address: [address] [place] [address] Result Comment: [place] Diabetes Association (ADA) provides guidance for cutoff [...] Standards of Medical Care in Diabetes 2016, [place] Diabetes Association. Diabetes Care. 2016.39(Suppl 1). Performed By: #### 2 4321-2 #### [facility] CLIA [id number] [address] [place] Potassium [Moles/Vol] 3.8 mmol/L Normal 3.7-5.1 [facility] Comment on above: Order Comment: Speci men Type: BLOOD SPECIMEN Ordering Facility: [facility] Address: [address] [place] [address] Performed By: #### 2 4321-2 #### [facility] CLIA [id number] [address] [place] Sodium [Moles/Vol] 138 mmol/L Normal 136-144 [facility] Comment on above: Order Comment: Speci men Type: BLOOD SPECIMEN Ordering Facility: [facility] Address: [address] [place] [address] Performed By: #### 2 4321-2 #### [facility] CLIA [id number] [address] STATES [facility] Urea nitrogen [Mass/Vol] 25 mg/dL High 7-21 [facility] Comment on above: Order Comment: Speci men Type: BLOOD SPECIMEN Ordering Facility: [facility] Address: [address] [place] [address] Performed By: #### 2 4321-2 #### [facility] CLIA [id number] [address] STATES OF [facility] CBC panel Auto (Bld)on 08-15 Erythrocyte distribution width (RBC) [Ratio] 13.9 % Normal 11.5-15.0 [facility] Comment on above: Order Comment: Speci men Type: BLOOD SPECIMEN Ordering Facility: [facility] Address: [address] [place] [address] Performed By: #### 5 8410-2 #### [facility] CLIA [id number] [address] OF [facility] Hematocrit (Bld) [Volume fraction] 31.5 % Low 36.0-46.0 [facility] Comment on above: Order Comment: Speci men Type: BLOOD SPECIMEN Ordering Facility: [facility] Address: [address] [place], [place] [id number] Performed By: #### 5 8410-2 #### [facility] CLIA [id number] [address] Hemoglobin (Bld) [Mass/Vol] 10.4 g/dL Low 11.5-15.5 [facility] Comment on above: Order Comment: Speci men Type: BLOOD SPECIMEN Ordering Facility: [facility] Address: [address] [place] [address] Performed By: #### 5 8410-2 #### [facility] CLIA [id number] [address] MCH (RBC) [Entitic mass] 30.4 pg Normal 26.0-34.0 [facility] Comment on above: Order Comment: Speci men Type: BLOOD SPECIMEN Ordering Facility: [facility] Address: [address] [place] [address] Performed By: #### 5 8410-2 #### [facility] CLIA [id number] [address] MCHC (RBC) [Mass/Vol] 33.0 g/dL Normal 30.5-36.0 [facility] Comment on above: Order Comment: Speci men Type: BLOOD SPECIMEN Ordering Facility: [facility] Address: [address] [place] [address] Performed By: #### 5 8410-2 #### [facility] CLIA [id number] [address] MCV (RBC) [Entitic vol] 92.1 fL Normal 80.0-100.0 [facility] Comment on above: Order Comment: Speci men Type: BLOOD SPECIMEN Ordering Facility: [facility] Address: [address] [place] [address] Performed By: #### 5 8410-2 #### [facility] CLIA [id number] [address] Nucleated RBC (Bld) [#/Vol] 10*3/uL Normal <0.01 [facility] Comment on above: Order Comment: Speci men Type: BLOOD SPECIMEN Ordering Facility: [facility] Address: [address] [place] [address] Performed By: #### 5 8410-2 #### [facility] CLIA [id number] [address] [place] Platelet mean volume (Bld) [Entitic vol] 11.5 fL Normal 9.0-12.7 [facility] Comment on above: Order Comment: Speci men Type: BLOOD SPECIMEN Ordering Facility: [facility] Address: [address] [place] [address] Performed By: #### 5 8410-2 #### [facility] CLIA [id number] [address] [place] Platelets (Bld) [#/Vol] 190 10*3/uL Normal 150-400 [facility] Comment on above: Order Comment: Speci men Type: BLOOD SPECIMEN Ordering Facility: [facility] Address: [address] [place] [address] Performed By: #### 5 8410-2 #### [facility] CLIA [id number] [address] [place] RBC (Bld) [#/Vol] 3.42 10*6/uL Low 3.90-5.20 [facility] Comment on above: Order Comment: Speci men Type: BLOOD SPECIMEN Ordering Facility: [facility] Address: [address] [place] [address] Performed By: #### 5 8410-2 #### [facility] CLIA [id number] [address] [place] WBC (Bld) [#/Vol] 9.71 10*3/uL Normal 3.70-11.00 [facility] Comment on above: Order Comment: Speci men Type: BLOOD SPECIMEN Ordering Facility: [facility] Address: [address] [place] [address] Performed By: #### 5 8410-2 #### [facility] CLIA [id number] [address] CNDSon 08-15-2024 [facility] HNO ID: [id number] Author: VIBHA FLORES MD Service: General Surgery [...] Orders Placed This Encounter DRESSING CARE (SPECIFY) (DE,MI), Order Comments: Remove on POD 2 Freq: [...] Your Medications These medications were sent to [facility] [address] [place], [place] [id number] Hours: Sunday-Sunday, 8am-7pm, Sunday 9am-1pm oxyCODONE IR 5 mg immediate release tablet FUTURE APPOINTMENTS: Future Appointments Date Time Provider Department Center 08/29/2024 11:00 AM Vibha Flores MD AGGENS3 [facility] The patient's risk for 30-day readmission is determined using the following contributing factors: Predictive Model Details 10% (Low) Factor Value Calculated 08/15/2024 05:19 12% Admission Provider (more content not included)... Normal [facility] BRIEF OP NOTon 08-14-2024 BRIEF OP NOT HNO ID: [id number] Author: VIBHA FLORES MD Service: General Surgery [...] BRIEF OPERATIVE / PROCEDURE NOTE LOG ID: [id number] SURGERY/PROCEDURE DATE: 08/13/2024 INCISION/PROCEDURE START TIME: 3:42 PM INCISION CLOSE/PROCEDURE END TIME: 7:36 PM SURGEON(S)/PROCEDURALIST(S ) AND RETAIL PLANNING MANAGER(S): Surgeons and Role: * Vibha Flores MD - Primary * Cirilo Adkins MD - Assisting * Noemy Navarrete DO - Resident - Assisting [employer] Tube Bender: Erik Salazar SA [employer] Tube Bender (Relief): Zunilda Stein SA SURGERY/PROCEDURE(S): Robotic LAR ANESTHESIA: General FINDINGS: Large upper rectal mass Adequate proximal and distal margins EEA ESTIMATED BLOOD LOSS: 20 mls SPECIMENS: Left descending colon and rectum COMPLICATIONS: None CLOSURE TECHNIQUE: Primary PRE-OP/PRE-PROCEDURE DIAGNOSIS: Rectal adenocarcinoma POST-OP/POST-PROCEDURE DIAGNOSIS: Same as Preop SIGNATURE: Noemy Navarrete DO PATIENT NAME: Trudy Calle DATE: August 14, 2024 TIME: 6:03 AM Normal [facility] Basic metabolic 2000 panelon 08-14-2024 Anion gap [Moles/Vol] 11 mmol/L Normal 8-15 [facility] Comment on above: Order Comment: Speci men Type: BLOOD SPECIMEN Ordering Facility: [facility] Address: [address] [place] [address] Performed By: #### 2 4321-2 #### [facility] CLIA [id number] [address] [place] [address] [place] Calcium [Mass/Vol] 8.5 mg/dL Normal 8.5-10.2 [facility] Comment on above: Order Comment: Speci men Type: BLOOD SPECIMEN Ordering Facility: [facility] Address: [address] [place] [address] Performed By: #### 2 4321-2 #### [facility] CLIA [id number] [address] [place] [address] [place] Chloride [Moles/Vol] 102 mmol/L Normal 98-107 [facility] Comment on above: Order Comment: Speci men Type: BLOOD SPECIMEN Ordering Facility: [facility] Address: [address] [place] [address] Performed By: #### 2 4321-2 #### [facility] CLIA [id number] [address] CO2 [Moles/Vol] 23 mmol/L Normal 22-30 [facility] Comment on above: Order Comment: Speci men Type: BLOOD SPECIMEN Ordering Facility: [facility] Address: [address] [place] [address] Performed By: #### 2 4321-2 #### [facility] CLIA [id number] [address] Creatinine [Mass/Vol] 1.04 mg/dL High 0.58-0.96 [facility] Comment on above: Order Comment: Speci men Type: BLOOD SPECIMEN Ordering Facility: [facility] Address: [address] [place] [address] Performed By: #### 2 4321-2 #### [facility] CLIA [id number] [address] Creatinine and Glomerular filtration rate.predicted panel (S/P/Bld) 60 mL/min/1.73m??? Normal >=60 [facility] Comment on above: Order Comment: Speci men Type: BLOOD SPECIMEN Ordering Facility: [facility] Address: [address] [place] [address] Result Comment: Devika mated Glomerular Filtration Rate [...] GFR. Performed By: #### 2 4321-2 #### [facility] CLIA [id number] [address] Glucose [Mass/Vol] 131 mg/dL High 74-99 [facility] Comment on above: Order Comment: Speci men Type: BLOOD SPECIMEN Ordering Facility: [facility] Address: [address] [place] [address] Result Comment: The [place] Diabetes Association (ADA) provides guidance for cutoff [...] Standards of Medical Care in Diabetes 2016, [place] Diabetes Association. Diabetes Care. 2016.39(Suppl 1). Performed By: #### 2 4321-2 #### [facility] CLIA [id number] [address] [place] Potassium [Moles/Vol] 3.8 mmol/L Normal 3.7-5.1 [facility] Comment on above: Order Comment: Specdarrel aguayo Type: BLOOD SPECIMEN Ordering Facility: [facility] Address: [address] [place] [address] Performed By: #### 2 1-2 #### [facility] CLIA [id number] [address] [place] [address] Sodium [Moles/Vol] 136 mmol/L Normal 136-144 [facility] Comment on above: Order Comment: Effie aguayo Type: BLOOD SPECIMEN Ordering Facility: [facility] Address: [address] [place] [address] Performed By: #### 2 4321-2 #### [facility] CLIA [id number] [address] [place] Urea nitrogen [Mass/Vol] 22 mg/dL High 7-21 [facility] Comment on above: Order Comment: Effie aguayo Type: BLOOD SPECIMEN Ordering Facility: [facility] Address: [address] [place] [address] Performed By: #### 2 4321-2 #### [facility] CLIA [id number] [address] [place] [address] [place] CBC panel Auto (Bld)on 08-14 Erythrocyte distribution width (RBC) [Ratio] 13.6 % Normal 11.5-15.0 [facility] Comment on above: Order Comment: Speci men Type: BLOOD SPECIMEN Ordering Facility: [facility] Address: [address] [place] [address] Performed By: #### 5 8410-2 #### [facility] CLIA [id number] [address] OF [facility] Hematocrit (Bld) [Volume fraction] 33.8 % Low 36.0-46.0 [facility] Comment on above: Order Comment: Speci men Type: BLOOD SPECIMEN Ordering Facility: [facility] Address: [address] [place] [address] Performed By: #### 5 8410-2 #### [facility] CLIA [id number] [address] Hemoglobin (Bld) [Mass/Vol] 11.2 g/dL Low 11.5-15.5 [facility] Comment on above: Order Comment: Speci men Type: BLOOD SPECIMEN Ordering Facility: [facility] Address: [address] [place] [address] Performed By: #### 5 8410-2 #### [facility] CLIA [id number] [address] MCH (RBC) [Entitic mass] 30.1 pg Normal 26.0-34.0 [facility] Comment on above: Order Comment: Speci men Type: BLOOD SPECIMEN Ordering Facility: [facility] Address: [address] [place] [address] Performed By: #### 5 8410-2 #### [facility] CLIA [id number] [address] STATES [facility] MCHC (RBC) [Mass/Vol] 33.1 g/dL Normal 30.5-36.0 [facility] Comment on above: Order Comment: Speci men Type: BLOOD SPECIMEN Ordering Facility: [facility] Address: [address] [place] [address] Performed By: #### 5 8410-2 #### [facility] CLIA [id number] [address] MCV (RBC) [Entitic vol] 90.9 fL Normal 80.0-100.0 [facility] Comment on above: Order Comment: Speci men Type: BLOOD SPECIMEN Ordering Facility: [facility] Address: [address] [place] [address] Performed By: #### 5 8410-2 #### [facility] CLIA [id number] [address] [place] Nucleated RBC (Bld) [#/Vol] 10*3/uL Normal <0.01 [facility] Comment on above: Order Comment: Speci men Type: BLOOD SPECIMEN Ordering Facility: [facility] Address: [address] [place] [address] Performed By: #### 5 8410-2 #### [facility] CLIA [id number] [address] Platelet mean volume (Bld) [Entitic vol] 11.5 fL Normal 9.0-12.7 [facility] Comment on above: Order Comment: Speci men Type: BLOOD SPECIMEN Ordering Facility: [facility] Address: [address] [place] [address] Performed By: #### 5 8410-2 #### [facility] CLIA [id number] [address] [address] [place] Platelets (Bld) [#/Vol] 211 10*3/uL Normal 150-400 [facility] Comment on above: Order Comment: Speci men Type: BLOOD SPECIMEN Ordering Facility: [facility] Address: [address] [place] [address] Performed By: #### 5 8410-2 #### [facility] CLIA [id number] [address] [place] RBC (Bld) [#/Vol] 3.72 10*6/uL Low 3.90-5.20 [facility] Comment on above: Order Comment: Speci men Type: BLOOD SPECIMEN Ordering Facility: [facility] Address: [address] [place] [address] Performed By: #### 5 8410-2 #### [facility] CLIA [id number] [address] [place] [address] [facility] [place] WBC (Bld) [#/Vol] 10.38 10*3/uL Normal 3.70-11.00 [facility] Comment on above: Order Comment: Speci men Type: BLOOD SPECIMEN Ordering Facility: [facility] Address: [address] [place] [address] Performed By: #### 5 8410-2 #### [facility] CLIA [id number] [address] OF [place] ANES POSTPROC EVALon 025 ANES POSTPROC EVAL HNO ID: [id number] Author: ARIEL MONROY DO Service: Anesthesiology Author Type: Anesthesiologist Type: Anesthesia Postprocedure Evaluation Filed: 08/13/2024 21:40 Note Text: POST ANESTHESIA EVALUATION NOTE : 1960 Procedure Summary Date: 08/13/24 Room / Location: [place] OR / [place] OR Anesthesia Start: 1507 Anesthesia Stop: 1950 [...] August 13, 2024 TIME: 9:40 PM CSN: [id number] [facility] ANES PRE-OPon 08-13-2024 ANES PRE-OP HNO ID: [id number] Author: MERLIN ESQUIVEL MD Service: Anesthesiology Author Type: Physician Type: Anesthesia Preprocedure Evaluation Filed: 08/13/2024 11:52 Note Text: ANESTHESIOLOGY DAY OF SURGERY NOTE : 1960 Procedure Information Date/Time: 08/13/24 1315 Procedure: XI ROBOTIC LAPAROSCOPIC RESECTION COLON LOW ANTERIOR W/ COLORECTAL ANASTOMOSIS/ POSSIBLE STOMA/ ERAS/ W BLOCK - ERAS WITH BLOCK Location: [place] OR / [place] OR Surgeons: Vibha Flores MD Estimated body [...] August 13, 2024 TIME: 11:52 AM CSN: [id number] Normal [facility] MISMATCH REPAIR PROTEINS BY IHCon 08-13-2024 AP BIOMARKER DISCLAIMER Normal [facility] Comment on above: Order Comment: Speci men Type: TISSUE SPECIMEN Ordering Facility: [facility] Address: [address] [place] [address] Result Comment: Tal shankar Developed Test (LDT) Disclaimer: Performance characteristics of immunohistochemical, immunofluorescent and chromogenic in-situ hybridization tests have been determined by the performing laboratory within [facility]???s [facility] Pathology and Laboratory Medicine Department ([facility], [facility], [facility], [facility], [facility], [facility], or [facility]) in a manner consistent with CLIA requirements. One or more of these tests have not been cleared or approved by the FDA. RT-PLM is regulated under CLIA as qualified to perform high-complexity testing. These tests are used for clinical purposes. They should not be regarded as investigational or for research. Positive and negative controls stain appropriately. Performed By: #### L [id number] #### [facility] CLIA [id number] [address] [place] [address] [place] AP BLOCK ID A4 Normal [facility] Comment on above: Order Comment: Effie aguayo Type: TISSUE SPECIMEN Ordering Facility: [facility] Address: [address] [place] [address] Performed By: #### L [id number] #### [facility] CLIA [id number] [address] [place] [address] [place] BIOMARKER INTERPRETATION COMMENT AND REFERENCE RANGE Normal [facility] Comment on above: Order Comment: Effie aguayo Type: TISSUE SPECIMEN Ordering Facility: [facility] Address: [address] [place] [address]: [address] expression of MMR [...] patients with metastatic carcinoma, Melinda et al. ([facility] 2015;372:2509-20) reported that clinical benefit of pembrolizumab, [...] questions about this result, please call the [facility] at [phone]. Performed By: #### L [id number] #### [facility] CLIA [id number] [address] [place] [address] [place] BIOMARKER METHOD Immunohistochemistry was performed on formalin fixed paraffin-embedded tissue using the following clones: MLH1 (clone M1 mouse monoclonal); MSH2 ([id number] mouse monoclonal); and MSH6 (SP93 rabbit monoclonal); followed by ultrasensitive bright field detection (Optiview with amplification) from [[employer], [place]]. PMS2 (EP51 Rabbit monoclonal, [employer]); followed by ultrasensitive bright field detection ( Dumont Refine Polymer DAB Detection) from [[employer], [place], [place]]. [facility] Comment on above: Order Comment: Speci men Type: TISSUE SPECIMEN Ordering Facility: [facility] Address: [address] [place] [address] Performed By: #### L [id number] #### [facility] CLIA [id number] [address] [place] [address] OF [place] [facility] CASE NUMBER MMR [id number] [facility] Comment on above: Order Comment: Speci men Type: TISSUE SPECIMEN Ordering Facility: [facility] Address: [address] [place] [address] Performed By: #### L [id number] #### [facility] CLIA [id number] [address] [place] [address] OF [place] FINAL PERFORMING LAB Normal [facility] Comment on above: Order Comment: Speci men Type: TISSUE SPECIMEN Ordering Facility: [facility] Address: [address] [place] [address] Result Comment: Diag nostic interpretation performed at: [facility], [address] [place], [place] [address] CLIA# [id number] Horse Racer: Jordi Mcclelland MD Electronically signed out by: Asa Jean Baptiste MD Performed By: #### L [id number] #### [facility] CLIA [id number] [address] [place] [address] [place] Order Comment: Speci men Type: TISSUE SPECIMENOrdering Facility: [facility] Address: [address] [place] [address] Result Comment: Diag nostic interpretation performed at: [facility], [address] [address] CLIA# [id number] Horse Racer: Siddhartha Hsu MD Performed By: #### 6 6121-5 ####[facility] [id number] [address] [place] FIXATIVE Formalin, 10% Neutra l Buffered Normal [facility] Comment on above: Order Comment: Speci men Type: TISSUE SPECIMEN Ordering Facility: [facility] Address: [address] [place] [address] Performed By: #### L [id number] #### [facility] CLIA [id number] [address] [place] [address] [place] MLH1 IMMUNOHISTOCHEMICAL RESULTS Normal/Intact Nuclear Expression Normal [facility] Comment on above: Order Comment: Speci men Type: TISSUE SPECIMEN Ordering Facility: [facility] Address: [address] [place] [address] Performed By: #### L [id number] #### [facility] CLIA [id number] [address] [id number] [address] [place] MLH1 PROMOTER METHYLATION ASSAY No Normal [facility] Comment on above: Order Comment: Speci men Type: TISSUE SPECIMEN Ordering Facility: [facility] Address: [address] [place], [place] [address] Performed By: #### L [id number] #### [facility] CLIA [id number] [address] [place] [address] [place] MMR INTERPRETATION Proficient (Microsat ellite Stable) Normal [facility] Comment on above: Order Comment: Speci men Type: TISSUE SPECIMEN Ordering Facility: [facility] Address: [address] [place], [place] [address] Performed By: #### L [id number] #### [facility] CLIA [id number] [address] [place], [place] [address] [place] MSH2 IMMUNOHISTOCHEMICAL RESULTS Normal/Intact Nuclear Expression Normal [facility] Comment on above: Order Comment: Speci men Type: TISSUE SPECIMEN Ordering Facility: [facility] Address: [address] [place] [address] Performed By: #### L [id number] #### [facility] CLIA [id number] [address] [place], [place] [address] [place] MSH6 IMMUNOHISTOCHEMICAL RESULTS Normal/Intact Nuclear Expression Normal [facility] Comment on above: Order Comment: Speci men Type: TISSUE SPECIMEN Ordering Facility: [facility] Address: [address] [place], [place] [address] Performed By: #### L [id number] #### [facility] CLIA [id number] [address] [place] [address] [place] PMS2 IMMUNOHISTOCHEMICAL RESULTS Normal/Intact Nuclear Expression Normal [facility] Comment on above: Order Comment: Speci men Type: TISSUE SPECIMEN Ordering Facility: [facility] Address: [address] [place], [place] [address] Performed By: #### L [id number] #### [facility] CLIA [id number] [address] [place] [id number] [place] TUMOR TYPE MMR Primary Colorectal Adenocarcinoma Normal [facility] Comment on above: Order Comment: Speci men Type: TISSUE SPECIMEN Ordering Facility: [facility] Address: [address] [place] [address] Performed By: #### L [id number] #### [facility] CLIA [id number] [address] [place] [address] OPERATIVE NOon 08-13-2024 OPERATIVE NO HNO ID: [id number] Author: VIBHA FLORES MD Service: General Surgery Author Type: Physician Type: Operative Report Filed: 08/14/2024 11:48 Note Text: OPERATIVE REPORT Log ID: [id number] Surgery Date: 08/13/2024 Incision/Procedure Start Time: 3:42 PM Incision Close/Procedure End Time: 7:36 PM Surgeon(s) and Photo Tube Assembler(s): Surgeons and Role: * Vibha Flores MD [...] e (more content not included)... Normal [facility] Pathology biopsy report Jose David (Tiss)on 08-13-2024 AP DISCLAIMER Normal [facility] Comment on above: Order Comment: Speci men Type: TISSUE SPECIMENOrdering Facility: [facility] Address: [address] [place] [address] Result Comment: Tal shankar Developed Test (LDT) Disclaimer: Performance characteristics of immunohistochemical, immunofluorescent, and chromogenic in-situ hybridization tests have been determined by the performing laboratory within [facility]'s [facility] Pathology and Laboratory Medicine Department ([facility], [facility], [facility], [facility], [facility], [facility], or [facility]) in a manner consistent with CLIA requirements. One or more of these tests may not have been cleared or approved by the FDA. RT-PLM is regulated under CLIA as qualified to perform high-complexity testing. These tests are used for clinical purposes. These should not be regarded as investigational or for research. Positive and negative controls stain appropriately. Performed By: #### 6 6121-5 ####[facility] [id number] [address] BLOCK FOR ADDITIONAL BIOMARKERS/MOLECULAR STUDIES A4 Normal [facility] Comment on above: Order Comment: Speci men Type: TISSUE SPECIMENOrdering Facility: [facility] Address: [address] [id number] Performed By: #### 6 6121-5 ####[facility] [id number] [address] [place] CASE REPORT Normal [facility] Comment on above: Order Comment: Speci men Type: TISSUE SPECIMENOrdering Facility: [facility] Address: [address] [place] [address] Result Comment: Surg ica Pathology Report Case: [id number] Authorizing Provider: Vibha Flores MD Collected: 08/13/2024 07:26 PM Ordering Location: [place] [facility] [place] Received: 08/14/2024 08:11 AM Pathologist: Honey Paula MD Specimen: Colon, Sigmoid, Resection, RECTOSIGMOID Performed By: #### 6 6121-5 ####[facility] [id number] [address] CLINICAL HISTORY Normal [facility] Comment on above: Order Comment: Speci dede Type: TISSUE SPECIMENOrdering Facility: [facility] Address: [address] [place] [address] Result Comment: Pre- op diagnosis: Rectal cancer (HCC) [C20] Performed By: #### 6 6121-5 ####[facility] [id number] [address] FINAL DIAGNOSIS Normal [facility] Comment on above: Order Comment: Speci men Type: TISSUE SPECIMENOrdering Facility: [facility] Address: [address] [place] [address] Result Comment: Rect osigmoid, low anterior resection: - Moderately differentiated adenocarcinoma, invading through the muscularis propria into the pericolonic/perirectal tissue. - 3 out of 12 lymph nodes positive for carcinoma (3/12). - All margins negative for carcinoma. - Focal endometrial type stroma and glands, suggestive of endometriosis. - See comment and CAP synoptic report. at 1558 EDT Performed By: #### 6 6121-5 ####[facility] [id number] [address] GROSS DESCRIPTION Normal [facility] Comment on above: Order Comment: Speci men Type: TISSUE SPECIMENOrdering Facility: [facility] Address: [address] [place] [address] Result Comment: Rachel knapp, Sigmoid, Resection Received [...] 0.3 to 1.8 cm in greatest dimension. Engineering Manager Electronics sections are submitted in formalin as follows: [...] node serially sectioned Gross examination performed at [facility], [address] August 14, 2024 12:18 PM Performed By: #### 6 6121-5 ####[facility] [id number] [place] [address] [place] SYNOPTIC REPORT Normal [facility] Comment on above: Order Comment: Speci men Type: TISSUE SPECIMENOrdering Facility: [facility] Address: [address] [place] [address] Result Comment: COLO N AND RECTUM: Resection [...] Category: pN1b Performed By: #### 6 6121-5 ####[facility] [id number] [address] OF [facility] NURSING PROGon 08-08-2024 NURSING PROG HNO ID: [id number] Author: OSMEL MAYES APRN.GUT DROPPER Service: General Surgery Author Type: Nurse Practitioner Type: Nursing Progress Note Filed: 08/08/2024 10:39 Note Text: -- Summary: anesthesia -- Reviewed patient health history, PCP last office note, concerns from PAT visit with Dr. Gentile in anesthesia. Per Dr. Gentile, OK to proceed with procedure as planned. Normal [facility] Basic metabolic 2000 panelon 08-07-2024 Anion gap [Moles/Vol] 13 mmol/L 8 - 15 mmol/L [facility] Calcium [Mass/Vol] 9.5 mg/dL 8.5 - 10. 2 mg/dL [facility] Chloride [Moles/Vol] 98 mmol/L 98 - 10 7 mmol/L [facility] CO2 [Moles/Vol] 26 mmol/L 22 - 30 mmol/L [facility] Creatinine [Mass/Vol] 1.02 mg/dL High 0.58 - 0.96 mg/dL [facility] GFR/1.73 sq M.predicted among non-blacks MDRD (S/P/Bld) [Vol rate/Area] 61 mL/min/{1.73_m2} - PINF [facility] Comment on above: Estimated Glomerular Filtration [...] 101 mg/dL High 74 - 99 mg/dL [facility] Comment on above: [place] Diabete s Association (ADA) provides guidance for [...] Standards of Medical Care in Diabetes 2016, [place] Diabetes Association. Diabetes Care. 2016.39(Suppl 1). Interpretation and review of laboratory results Abnormal [facility] Potassium [Moles/Vol] 3.8 mmol/L 3.7 - 5.1 mmol/L [facility] Sodium [Moles/Vol] 137 mmol/L 136 - 144 mmol/L [facility] Urea nitrogen [Mass/Vol] 22 mg/dL High 7 - 21 mg/dL [facility] Anion gap [Moles/Vol] 13 mmol/L Normal 8-15 [facility] Comment on above: Order Comment: Effie aguayo Type: BLOOD SPECIMEN Ordering Facility: [facility] Address: [address] [place] [address] Performed By: #### 2 4321-2 #### [facility] CLIA [id number] [address] [place] [address] [place] Calcium [Mass/Vol] 9.5 mg/dL Normal 8.5-10.2 [facility] Comment on above: Order Comment: Effie aguayo Type: BLOOD SPECIMEN Ordering Facility: [facility] Address: [address] [place] [address] Performed By: #### 2 4321-2 #### [facility] CLIA [id number] [address] [place] [address] [place] Chloride [Moles/Vol] 98 mmol/L Normal 98-107 [facility] Comment on above: Order Comment: Venancioi men Type: BLOOD SPECIMEN Ordering Facility: [facility] Address: [address] [place] [address] Performed By: #### 2 4321-2 #### [facility] CLIA [id number] [address] [place] [address] [place] CO2 [Moles/Vol] 26 mmol/L Normal 22-30 [facility] Comment on above: Order Comment: Effie men Type: BLOOD SPECIMEN Ordering Facility: [facility] Address: [address] [place] [address] Performed By: #### 2 4321-2 #### [facility] CLIA [id number] [address] [place] Creatinine [Mass/Vol] 1.02 mg/dL High 0.58-0.96 [facility] Comment on above: Order Comment: Effie aguayo Type: BLOOD SPECIMEN Ordering Facility: [facility] Address: [address] [place] [address] Performed By: #### 2 4321-2 #### [facility] CLIA [id number] [address] Creatinine and Glomerular filtration rate.predicted panel (S/P/Bld) 61 mL/min/1.73m??? Normal >=60 [facility] Comment on above: Order Comment: Effie aguayo Type: BLOOD SPECIMEN Ordering Facility: [facility] Address: [address] [place] [address] Result Comment: Devika mated Glomerular Filtration Rate [...] GFR. Performed By: #### 2 4321-2 #### [facility] CLIA [id number] [address] STATES OF [facility] Glucose [Mass/Vol] 101 mg/dL High 74-99 [facility] Comment on above: Order Comment: Effie aguayo Type: BLOOD SPECIMEN Ordering Facility: [facility] Address: [address] [place] [address] Result Comment: [place] Diabetes Association (ADA) provides guidance for cutoff [...] Standards of Medical Care in Diabetes 2016, [place] Diabetes Association. Diabetes Care. 2016.39(Suppl 1). Performed By: #### 2 4321-2 #### [facility] CLIA [id number] [address] Potassium [Moles/Vol] 3.8 mmol/L Normal 3.7-5.1 [facility] Comment on above: Order Comment: Speci men Type: BLOOD SPECIMEN Ordering Facility: [facility] Address: [address] [place] [address] Performed By: #### 2 4321-2 #### [facility] CLIA [id number] [address] Sodium [Moles/Vol] 137 mmol/L Normal 136-144 [facility] Comment on above: Order Comment: Speci men Type: BLOOD SPECIMEN Ordering Facility: [facility] Address: [address] [place] [address] Performed By: #### 2 4321-2 #### [facility] CLIA [id number] [address] STATES [facility] Urea nitrogen [Mass/Vol] 22 mg/dL High 7-21 [facility] Comment on above: Order Comment: Speci men Type: BLOOD SPECIMEN Ordering Facility: [facility] Address: [address] [place] [address] Performed By: #### 2 4321-2 #### [facility] CLIA [id number] [address] [place] CBC panel Auto (Bld)on 08-07 Erythrocyte distribution width (RBC) [Ratio] 13.9 % 11.5 - 15.0 % [facility] Hematocrit (Bld) [Volume fraction] 39 % 36.0 - 46.0 % [facility] Hemoglobin (Bld) [Mass/Vol] 12.8 g/dL 11.5 - 15.5 g/dL [facility] Interpretation and review of laboratory results Normal [facility] MCH (RBC) [Entitic mass] 30.4 pg 26.0 - 34.[address] [facility] MCHC (RBC) [Mass/Vol] 32.8 g/dL 30.5 - 36.0 g/dL [facility] MCV (RBC) [Entitic vol] 92.6 fL 80.0 - 100.[address] [facility] Nucleated RBC (Bld) [#/Vol] NINF [facility] Platelet mean volume (Bld) [Entitic vol] 11.9 fL 9.0 - 12.[address] [facility] Platelets (Bld) [#/Vol] 281 10*3/uL [facility] RBC (Bld) [#/Vol] 4.21 10*6/uL 3.90 - 5.2 0 m/uL [facility] WBC (Bld) [#/Vol] 8.3 10*3/uL [facility] Erythrocyte distribution width (RBC) [Ratio] 13.9 % Normal 11.5-15.0 [facility] Comment on above: Order Comment: Speci men Type: BLOOD SPECIMEN Ordering Facility: [facility] Address: [address] [place] [address] Performed By: #### 5 8410-2 #### [facility] CLIA [id number] [address] STATES OF [facility] Hematocrit (Bld) [Volume fraction] 39.0 % Normal 36.0-46.0 [facility] Comment on above: Order Comment: Venancioi men Type: BLOOD SPECIMEN Ordering Facility: [facility] Address: [address] [place] [address] Performed By: #### 5 8410-2 #### [facility] CLIA [id number] [address] [place] Hemoglobin (Bld) [Mass/Vol] 12.8 g/dL Normal 11.5-15.5 [facility] Comment on above: Order Comment: Speci men Type: BLOOD SPECIMEN Ordering Facility: [facility] Address: [address] [place] [address] Performed By: #### 5 8410-2 #### [facility] CLIA [id number] [address] [place] MCH (RBC) [Entitic mass] 30.4 pg Normal 26.0-34.0 [facility] Comment on above: Order Comment: Speci men Type: BLOOD SPECIMEN Ordering Facility: [facility] Address: [address] [place] [address] Performed By: #### 5 8410-2 #### [facility] CLIA [id number] [address] MCHC (RBC) [Mass/Vol] 32.8 g/dL Normal 30.5-36.0 [facility] Comment on above: Order Comment: Speci men Type: BLOOD SPECIMEN Ordering Facility: [facility] Address: [address] [place] [address] Performed By: #### 5 8410-2 #### [facility] CLIA [id number] [address] OF [facility] MCV (RBC) [Entitic vol] 92.6 fL Normal 80.0-100.0 [facility] Comment on above: Order Comment: Speci men Type: BLOOD SPECIMEN Ordering Facility: [facility] Address: [address] [place] [address] Performed By: #### 5 8410-2 #### [facility] CLIA [id number] [address] Nucleated RBC (Bld) [#/Vol] 10*3/uL Normal <0.01 [facility] Comment on above: Order Comment: Speci men Type: BLOOD SPECIMEN Ordering Facility: [facility] Address: [address] [place] [address] Performed By: #### 5 8410-2 #### [facility] CLIA [id number] [address] Platelet mean volume (Bld) [Entitic vol] 11.9 fL Normal 9.0-12.7 [facility] Comment on above: Order Comment: Speci men Type: BLOOD SPECIMEN Ordering Facility: [facility] Address: [address] [place] [address] Performed By: #### 5 8410-2 #### [facility] CLIA [id number] [address] Platelets (Bld) [#/Vol] 281 10*3/uL Normal 150-400 [facility] Comment on above: Order Comment: Speci men Type: BLOOD SPECIMEN Ordering Facility: [facility] Address: [address] [place] [address] Performed By: #### 5 8410-2 #### [facility] CLIA [id number] [address] RBC (Bld) [#/Vol] 4.21 10*6/uL Normal 3.90-5.20 [facility] Comment on above: Order Comment: Speci men Type: BLOOD SPECIMEN Ordering Facility: [facility] Address: [address] [place] [address] Performed By: #### 5 8410-2 #### [facility] CLIA [id number] [address] WBC (Bld) [#/Vol] 8.30 10*3/uL Normal 3.70-11.00 [facility] Comment on above: Order Comment: Speci men Type: BLOOD SPECIMEN Ordering Facility: [facility] Address: [address] [place] [address] Performed By: #### 5 8410-2 #### [facility] CLIA [id number] [address] CNOVon 08-07-2024 CNOV Office Visit (AKWO) -- TRUDY CALLE ([id number]) 1960 F Date Time Provider Department 08/07/24 [...] PM CONTACT#: [id number] Referring Provider: VIBHA FLORES [[id number]] Allergies As of Date: 08/07/2024 (No Known Allergies) Date Reviewed: 08/07/2024 Reviewed by: Osmel Mayes APRN.GUT DROPPER - Fully Assessed Reason for Visit: Stoma [...] Encounter Status:Closed by AMELIA BHAT on 08/07/24 Normal [facility] CONFIRM BLOOD TYPEon 025 ABO group Nom (Bld) A [facility] Rh Nom (Bld) Positive [facility] ABO A [facility] Comment on above: Order Comment: Speci men Type: BLOOD SPECIMEN Ordering Facility: [facility] Address: [address] [place] [address] Performed By: #### C ONABO #### [facility] CLIA [id number] 1 [place] [address] [place] Rh Nom (Bld) Positive Normal [facility] Comment on above: Order Comment: Speci men Type: BLOOD SPECIMEN Ordering Facility: [facility] Address: [address] [place] [address] Performed By: #### C ONABO #### [facility] CLIA [id number] 1 [place] [id number] [place] HISTORY PHYSICALon HISTORY PHYSICAL HNO ID: [id number] Author: OMSEL MAYES APRN.GUT DROPPER Service: ? Author Type: Nurse Practitioner Type: [...] 11/06/2024 [facility] or Procedure:: [facility] Status of surgery/procedure:: Scheduled Date of [...] ob (more content not included)... Normal [facility] TYPE AND SCREEN,30 DAYon ABO group Nom (Bld) A [facility] Blood group antibody screen Ql Negative [facility] Rh Nom (Bld) Positive [facility] ABO A Normal [facility] Comment on above: Order Comment: Speci men Type: BLOOD SPECIMENOrdering Facility: [facility] Address: [address] [place] [address] Performed By: #### T SCR30 ####[facility] [id number] [place] [address] [place] Rh Nom (Bld) Positive Normal [facility] Comment on above: Order Comment: Speci men Type: BLOOD SPECIMENOrdering Facility: [facility] Address: [address] [place] [address] Performed By: #### T SCR30 ####[facility] [id number] [place] [address] [place] Albumin to globulin ratioOrd ered By: Antoni Slaughter on 08-04-2024 Albumin/Globulin [Mass ratio] 1.1 {ratio} 0.9-2.4 [facility] Bilirubin, totalOrdered By: Antoni Slaughter on 08-04-2024 Bilirubin [Mass/Vol] 0.50 mg/dL 0.20-1.00 [facility] Comment on above: For patients on eltr ombopag therapy, use of Dimension [place] TBIL is not recommended. Blood urea nitrogen (BUN)/cr eatinine ratioOrdered By: Antoni Slaughter on 08-04-2024 Urea nitrogen/Creatinine [Mass ratio] 21.5 mg/mg High 10-20 [facility] Carbon dioxide measurementOr dered By: Antoni Slaughter on 08-04-2024 CO2 [Moles/Vol] 28.0 mmol/L 21.0-32.0 [facility] Chloride measurementOrdered By: Antoni Slaughter on 08-04-2024 Chloride [Moles/Vol] 106 mmol/L 98-107 [facility] Comprehensive Metabolic Prof ilon 08-04-2024 Albumin [Mass/Vol] 3.7 g/dL Normal 3.2-5.0 [facility] Comment on above: Performed By: #### L 501.9520, L500.4100, L500.4050 ####[facility] [address] [place], [address] Albumin/Globulin [Mass ratio] 1.1 {ratio} Normal 0.9-2.4 [facility] Comment on above: Performed By: #### L 501.9520, L500.4100, L500.4050 ####[facility] [address] [place], [address] ALK P 115 U/L Normal 45-117 [facility] Comment on above: Performed By: #### L 501.9520, L500.4100, L500.4050 ####[facility] [address] [place], [address] ALT [Catalytic activity/Vol] 20 U/L Normal 13-56 [facility] Comment on above: Performed By: #### L 501.9520, L500.4100, L500.4050 ####[facility] [address] [place], [address] AST [Catalytic activity/Vol] 10 U/L Low 15-37 [facility] Comment on above: Performed By: #### L 501.9520, L500.4100, L500.4050 ####[facility] [address] [place], [address] Bilirubin [Mass/Vol] 0.50 mg/dL Normal 0.20-1.00 [facility] Comment on above: Result Comment: For patients on eltrombopag therapy, use of Dimension [place] TBIL is not recommended. Performed By: #### L 501.9520, L500.4100, L500.4050 ####[facility] [address] [place], [address] BUN/CRE 21.5 RATIO High 10-20 [facility] Comment on above: Performed By: #### L 501.9520, L500.4100, L500.4050 ####[facility] [address] [place], [address] CA,Total 9.5 mg/dL Normal 8.5-10.1 [facility] Comment on above: Performed By: #### L 501.9520, L500.4100, L500.4050 ####[facility] [address] [place], [address] Chloride [Moles/Vol] 106 mmol/L Normal 98-107 [facility] Comment on above: Performed By: #### L 501.9520, L500.4100, L500.4050 ####[facility] [address] [place], [address] CO2 [Moles/Vol] 28.0 mmol/L Normal 21.0-32.0 [facility] Comment on above: Performed By: #### L 501.9520, L500.4100, L500.4050 ####[facility] [address] [place], [address] Creatinine [Mass/Vol] 0.93 mg/dL Normal 0.55-1.02 [facility] Comment on above: Result Comment: The validity of the calculated GFR GFRAA in patients over70 years has not been determined. Clinical correlation isessential. Performed By: #### L 501.9520, L500.4100, L500.4050 ####[facility] [address] [place], [address] EST GFR - AA 78 mL/min Normal >60 [facility] Comment on above: Result Comment: Afri can Citizen [place] GFR Calc Performed By: #### L 501.9520, L500.4100, L500.4050 ####[facility] [address] [place], [address] GAP 5 Normal 5-15 [facility] Comment on above: Performed By: #### L 501.9520, L500.4100, L500.4050 ####[facility] [address] [place], [address] GFR/1.73 sq M.predicted among non-blacks MDRD (S/P/Bld) [Vol rate/Area] 64 mL/min/{1.73_m2} Normal >60 [facility] Comment on above: Result Comment: Non- GFR Calc Performed By: #### L 501.9520, L500.4100, L500.4050 ####[facility] [address] [place], [address] Globulin (S) [Mass/Vol] 3.5 g/dL Normal 2.2-4.2 [facility] Comment on above: Performed By: #### L 501.9520, L500.4100, L500.4050 ####[facility] [address] [place], [address] Glucose [Mass/Vol] 108 mg/dL High 74-106 [facility] Comment on above: Result Comment: Fast ing Glucose result from 100 to 125 mg/dLsuggests IMPAIRED HOMEOSTASIS per A.D.A. criteria. Performed By: #### L 501.9520, L500.4100, L500.4050 ####[facility] [address] [place], [address] Potassium [Moles/Vol] 4.0 mmol/L Normal 3.5-5.1 [facility] Comment on above: Performed By: #### L 501.9520, L500.4100, L500.4050 ####[facility] [address] [place], [address] Sodium [Moles/Vol] 140 mmol/L Normal 136-145 [facility] Comment on above: Performed By: #### L 501.9520, L500.4100, L500.4050 ####[facility] [address] [place], [address] T PROT 7.2 g/dL Normal 6.4-8.2 [facility] Comment on above: Performed By: #### L 501.9520, L500.4100, L500.4050 ####[facility] [address] [place], [address] Urea nitrogen [Mass/Vol] 20 mg/dL High 7-18 [facility] Comment on above: Performed By: #### L 501.9520, L500.4100, L500.4050 ####[facility] [address] [place], [address] Estimated glomerular filtrat ion rate (GFR) AmericanOrdered By: Antoni Slaughter on 08-04-2024 Estimated GFR (MDRD) Amer 78 mL/min >60 [facility] Comment on above: GFR Calc Glomerular filtration rate ( GFR) estimationOrdered By: Antoni Slaughter on 08-04-2024 Estimated GFR (MDRD) Non-Af Amer 64 mL/min >60 [facility] Comment on above: Non- GFR Calc GFR/1.73 sq M.predicted among non-blacks MDRD (S/P/Bld) [Vol rate/Area] 64 mL/min/{1.73_m2} >60 [facility] Comment on above: Non- GFR Calc Glucose measurementOrdered B y: Antoni Slaughter on 08-04-2024 Glucose [Mass/Vol] 108 mg/dL High 74-106 [facility] Comment on above: Fasting Glucose resu lt from 100 to 125 mg/dL suggests IMPAIRED HOMEOSTASIS per A.D.A. criteria. High density lipoprotein (HD L) measurementOrdered By: Antoni Slaughter on 08-04-2024 Cholesterol in HDL [Mass/Vol] 35 mg/dL Low >40 [facility] Comment on above: The drugs N-Acetylcy steine and Metamizole may falsely depress this assay. Reference Range HDL <40 mg/dL Low HDL Cholesterol HDL >or= 60 mg/dL High HDL Cholesterol Internal Medicine Office Vis iton 08-04-2024 Internal Medicine Office Visit Normal [facility] - Chemistry and C hemistry - challengeOrdered By: Antoni Slaughter on 08-04-2024 AST [Catalytic activity/Vol] 10 U/L Low 15-37 [facility] Lipid Profileon 08-04-2024 Cholesterol [Mass/Vol] 229 mg/dL High 200 [facility] Comment on above: Result Comment: <200 mg/dL Desirable 200-240 mg/dL Borderline >240 mg/dL High Risk Performed By: #### L 501.9520, L500.4100, L500.4050 ####[facility] [address] [place], [address] Cholesterol in HDL [Mass/Vol] 35 mg/dL Low [facility] Comment on above: Result Comment: The drugs N-Acetylcysteine and Metamizole may falselydepress this assay. Reference Range HDL <40 mg/dL Low HDL Cholesterol HDL >or= 60 mg/dL High HDL Cholesterol Performed By: #### L 501.9520, L500.4100, L500.4050 ####[facility] [address] [place], [address] Cholesterol in LDL [Mass/Vol] 149 mg/dL High 0-130 [facility] Comment on above: Performed By: #### L 501.9520, L500.4100, L500.4050 ####[facility] [address] [place], [address] Cholesterol in VLDL [Mass/Vol] 45 mg/dL High 5-40 [facility] Comment on above: Performed By: #### L 501.9520, L500.4100, L500.4050 ####[facility] [address] [place], [address] Triglyceride [Mass/Vol] 224 mg/dL High [facility] Comment on above: Result Comment: The drugs N-Acetylcysteine and Metamizole may falselydepress this assay.Serum Triglycerides Reference Interval Normal <150 mg/dL Borderline high 150 - 199 mg/dL High 200 - 499 mg/dL Very High > or = 500 mg/dL Performed By: #### L 501.9520, L500.4100, L500.4050 ####[facility] [address] [place], [address] Low density lipoprotein (LDL ) cholesterol measurementOrdered By: Antoni Slaughter on 08-04-2024 Cholesterol in LDL [Mass/Vol] 149 mg/dL High 0-130 [facility] Potassium measurementOrdered By: Antoni Slaughter on 08-04-2024 Potassium [Moles/Vol] 4.0 mmol/L 3.5-5.1 [facility] Serum anion gap measurementO rdered By: Antoni Slaughter on 08-04-2024 Anion gap [Moles/Vol] 5 mmol/L 5-15 [facility] Serum globulin measurementOr dered By: Antoni Slaughter on 08-04-2024 Globulin (S) [Mass/Vol] 3.5 g/dL 2.2-4.2 [facility] Serum or plasma alanine zhu otransferase (ALT) measurementOrdered By: Antoni Slaughter on 08-04-2024 ALT [Catalytic activity/Vol] 20 U/L 13-56 [facility] Serum or plasma albumin sourav urement (mass/volume)Ordered By: Antoni Slaughter on 08-04-2024 Albumin [Mass/Vol] 3.7 g/dL 3.2-5.0 [facility] Serum or plasma alkaline omid sphatase measurementOrdered By: Antoni Slaughter on 08-04-2024 ALP [Catalytic activity/Vol] 115 U/L 45-117 [facility] Serum or plasma calcium sourav urement (mass/volume)Ordered By: Antoni Slaughter on 08-04-2024 Calcium [Mass/Vol] 9.5 mg/dL 8.5-10.1 [facility] Serum or plasma cholesterol measurement (mass/volume)Ordered By: Antoni Slaughter on 08-04-2024 Cholesterol [Mass/Vol] 229 mg/dL High <200 [facility] Comment on above: <200 mg/dL Desirable 200-240 mg/dL Borderline >240 mg/dL High Risk Serum or plasma creatinine m easurement (mass/volume)Ordered By: Antoni Slaughter on 08-04-2024 Creatinine [Mass/Vol] 0.93 mg/dL 0.55-1.02 [facility] Comment on above: The validity of the calculated GFR & GFRAA in patients over 70 years has not been determined. Clinical correlation is essential. Serum or plasma thyroid stim ulating hormone (TSH) measurement (units/volume)Ordered By: Antoni Slaughter on 08-04-2024 TSH Qn 4.790 uIU/mL High 0.358-3.740 [facility] Serum or plasma urea nitroge n measurement (mass/volume)Ordered By: Antoni Slaughter on 08-04-2024 Urea nitrogen [Mass/Vol] 20 mg/dL High 7-18 [facility] Sodium levelOrdered By: Brad Slaughter 08-04-2024 Sodium [Moles/Vol] 140 mmol/L 136-145 [facility] TSH QnOrdered By: Antoni Slaughter on 08-04-2024 Thyroid Stimulating Hormone (TSH) 4.790 uIU/mL High 0.358-3.740 [facility] Thyroid Stim Hormone (TSH)on 08-04-2024 TSH 4.790 uIU/mL High 0.358-3.740 [facility] Comment on above: Performed By: #### L 501.9520, L500.4100, L500.4050 ####[facility] [address] [place], [address] Total proteinOrdered By: Juwanpauly santamaria Kasandra on 08-04-2024 Protein [Mass/Vol] 7.2 g/dL 6.4-8.2 [facility] Triglycerides measurementOrd ered By: Antoni Slaughter on 08-04-2024 Triglyceride [Mass/Vol] 224 mg/dL High <199 [facility] Comment on above: The drugs N-Acetylcy steine and Metamizole may falsely depress this assay.Serum Triglycerides Reference Interval Normal <150 mg/dL Borderline high 150 - 199 mg/dL High 200 - 499 mg/dL Very High > or = 500 mg/dL Very low density lipoprotein (VLDL) cholesterol measurementOrdered By: Antoni Slaughter on 08-04-2024 Very low density lipoprotein (VLDL) cholesterol measurement 45 mg/dL High 5-40 [facility] VLDL Cholesterol 45 mg/dL High 5-40 [facility] CNOVon 08-01-2024 CNOV Office Visit (ESTEFANI 3) -- TRUDY CALLE ([id number]) 1960 F Date Time Provider Department 08/01/24 10:30 AM VIBHA FLORES During your visit today, we recorded the following information about you: Pulse Blood pressure Weight Height 71/minute 132/85 95.3 kg 1.702 Vibha Asif MD 08/01/2024 12:43 PM Signed Vibha Flores M.D. Colon AND Rectal Surgery [address] [facility], [address] [place] [id number] CC: rectosigmoid cancer HPI: Trudy Calle is [...] This office note has been created using [employer], a speech recognition software program, and may contain errors (more content not included)... Normal [facility] CNOVon 07-18-2024 CNOV Office Visit (AGGENS 3) -- TRUDY CALLE ([id number]) 1960 F Date Time Provider Department 07/18/24 8:30 AM VIBHA FLORES AGGENS3 During your visit today, we recorded the following information about you: Pulse Blood pressure Weight Height 76/minute 112/73 95.2 kg 1.702 m Vibha Flores MD 07/18/2024 12:37 PM Signed Vibha Flores M.D. Colon AND Rectal Surgery [address] [facility], [address] [place] [address] CC: rectal cancer HPI: Trudy Calle is a 63 year old White female who was referred by MERON Page with [facility] for newly diagnosed rectal adenocarcinoma. My [...] Current No family history on file. The [facility], medical, surgical, family, and social history were [...] Patient was examined in knee-chest with a firer automatic stoker present. Externally there were small skin tags. [...] for staging of her rectal cancer at [facility]. We will call to obtain the results of her imaging. We will also get the images uploaded to our system. Patient also states that she had a CEA drawn at [facility] as well. We also will request the [...] placed (more content not included)... Normal [facility] CT Chest, Abd, Pel w/Contras ton 07-17-2024 CT Chest, Abd, Pel w/Contrast Normal [facility] Pelvis W/WO Contraston 07-04 Pelvis W/WO Contrast Normal [facility] Carcinoembryonic Antigenon 0 07-03-2024 CEA 11.3 ng/mL High 0.0-4.7 [facility] Comment on above: Order Comment: PT NO T FASTING DR SLAUGHTER ORDERED [facility]SHALL OTHER LABS WERE FOR DR LEWIS Result Comment: Nons mokers <3.9 Smokers <5.6[employer] Electrochemiluminescence Immunoassay(ECLIA)Values obtained with different assay methods or kitscannot be used interchangeably. Results cannot beinterpreted as absolute evidence of the presence orabsence of malignant disease.Performed at: [facility] LabMatthew [place] [id number] Director: Osei Busch PhD, Phone: [phone] Performed By: #### L 504.2610, L501.9520, L500.4050, L100.0100, L503.6550, L3100.2300, L503.6030, L100.9950 ####[facility] [address] [place], [address] Absolute neutrophil countOrd ered By: Dayton Lewis on 07-02-2024 Neutrophils (Bld) [#/Vol] 5.4 10*3/uL 2.0-7.7 [facility] Albumin to globulin ratioOrd ered By: Dayton Lewis on 07-02-2024 Albumin/Globulin [Mass ratio] 1.0 {ratio} 0.9-2.4 [facility] Basophil percentageOrdered B y: Dayton Lewis on 07-02-2024 Basophils/100 WBC (Bld) 1.2 % High 0-1 [facility] Bilirubin, totalOrdered By: Dayton Lewis on 07-02-2024 Bilirubin [Mass/Vol] 0.50 mg/dL 0.20-1.00 [facility] Comment on above: For patients on eltr ombopag therapy, use of Dimension [place] TBIL is not recommended. Blood urea nitrogen (BUN)/cr eatinine ratioOrdered By: Dayton Lewis on 07-02-2024 Urea nitrogen/Creatinine [Mass ratio] 17.1 mg/mg - [facility] CBC W/Diff, Automatedon 06-12 Absolute Lymph 1.58 X10 3/uL Normal 0.83-4.51 [facility] Comment on above: Order Comment: PT NO T FASTING DR SLAUGHTER ORDERED TSHALL OTHER LABS WERE FOR DR LEWIS Performed By: #### L 504.2610, L501.9520, L500.4050, L100.0100, L503.6550, L3100.2300, L503.6030, L100.9950 ####[facility] [address] [place], [address] Absolute Neut 5.4 X10 3/uL Normal 2.0-7.7 [facility] Comment on above: Order Comment: PT NO T FASTING DR SLAUGHTER ORDERED [facility]ALL OTHER LABS WERE FOR DR LEWIS Performed By: #### L 504.2610, L501.9520, L500.4050, L100.0100, L503.6550, L3100.2300, L503.6030, L100.9950 ####[facility] [address] [place], [address] Basophils/100 WBC (Bld) 1.2 % High 0-1 [facility] Comment on above: Order Comment: PT NO T FASTING DR SLAUGHTER ORDERED [facility] OTHER LABS WERE FOR DR LEWIS Performed By: #### L 504.2610, L501.9520, L500.4050, L100.0100, L503.6550, L3100.2300, L503.6030, L100.9950 ####[facility] [address] [place], [address] Eosinophils/100 WBC (Bld) 6.4 % High 0-5 [facility] Comment on above: Order Comment: PT NO T FASTING DR SLAUGHTER ORDERED [facility] OTHER LABS WERE FOR DR LEWIS Performed By: #### L 504.2610, L501.9520, L500.4050, L100.0100, L503.6550, L3100.2300, L503.6030, L100.9950 ####[facility] [address] [place], [address] Erythrocyte distribution width (RBC) [Ratio] 14.5 % Normal 11.6-14.6 [facility] Comment on above: Order Comment: PT NO T FASTING DR SLAUGHTER ORDERED [facility] OTHER LABS WERE FOR DR LEWIS Performed By: #### L 504.2610, L501.9520, L500.4050, L100.0100, L503.6550, L3100.2300, L503.6030, L100.9950 ####[facility] [address] [place], [address] Hematocrit (Bld) [Volume fraction] 38.1 % Normal 37-47 [facility] Comment on above: Order Comment: PT NO T FASTING DR SLAUGHTER ORDERED [facility]ALL OTHER LABS WERE FOR DR LEWIS Performed By: #### L 504.2610, L501.9520, L500.4050, L100.0100, L503.6550, L3100.2300, L503.6030, L100.9950 ####[facility] [address] [place], [address] Hemoglobin (Bld) [Mass/Vol] 12.5 g/dL Normal 12.0-15.0 [facility] Comment on above: Order Comment: PT NO T FASTING DR SLAUGHTER ORDERED [facility] OTHER LABS WERE FOR DR LEWIS Performed By: #### L 504.2610, L501.9520, L500.4050, L100.0100, L503.6550, L3100.2300, L503.6030, L100.9950 ####[facility] [address] [place], [address] IG% 0.400 Normal 0.0-0.9 [facility] Comment on above: Order Comment: PT NO T FASTING DR SLAUGHTER ORDERED [facility]ALL OTHER LABS WERE FOR DR LEWIS Result Comment: IG% - Immature Granulocytes (promyelocytes, myelocytes andmetamyelocytes) > 1% indicates that a LEFT SHIFT is Present. Performed By: #### L 504.2610, L501.9520, L500.4050, L100.0100, L503.6550, L3100.2300, L503.6030, L100.9950 ####[facility] [address] [place], [address] Lymphocytes/100 WBC (Bld) 19.2 % Normal 19-41 [facility] Comment on above: Order Comment: PT NO T FASTING DR SLAUGHTER ORDERED [facility] OTHER LABS WERE FOR DR LEWIS Performed By: #### L 504.2610, L501.9520, L500.4050, L100.0100, L503.6550, L3100.2300, L503.6030, L100.9950 ####[facility] [address] [place], [address] MCH (RBC) [Entitic mass] 30.3 pg Normal 27.0-32.0 [facility] Comment on above: Order Comment: PT NO T FASTING DR SLAUGHTER ORDERED [facility] OTHER LABS WERE FOR DR LEWIS Performed By: #### L 504.2610, L501.9520, L500.4050, L100.0100, L503.6550, L3100.2300, L503.6030, L100.9950 ####[facility] [address] [place], [address] MCHC (RBC) [Mass/Vol] 32.8 g/dL Normal 32-36 [facility] Comment on above: Order Comment: PT NO T FASTING DR SLAUGHTER ORDERED [facility] OTHER LABS WERE FOR DR LEWIS Performed By: #### L 504.2610, L501.9520, L500.4050, L100.0100, L503.6550, L3100.2300, L503.6030, L100.9950 ####[facility] [address] [place], [address] MCV (RBC) [Entitic vol] 92.5 fL Normal 81-99 [facility] Comment on above: Order Comment: PT NO T FASTING DR SLAUGHTER ORDERED [facility]ALL OTHER LABS WERE FOR DR LEWIS Performed By: #### L 504.2610, L501.9520, L500.4050, L100.0100, L503.6550, L3100.2300, L503.6030, L100.9950 ####[facility] [address] [place], [address] Monocytes/100 WBC (Bld) 7.5 % Normal 0-10 [facility] Comment on above: Order Comment: PT NO T FASTING DR SLAUGHTER ORDERED [facility] OTHER LABS WERE FOR DR LEWIS Performed By: #### L 504.2610, L501.9520, L500.4050, L100.0100, L503.6550, L3100.2300, L503.6030, L100.9950 ####[facility] [address] [place], [address] Neutrophils/100 WBC (Bld) 65.3 % Normal 47-70 [facility] Comment on above: Order Comment: PT NO T FASTING DR SLAUGHTER ORDERED [facility] OTHER LABS WERE FOR DR LEWIS Performed By: #### L 504.2610, L501.9520, L500.4050, L100.0100, L503.6550, L3100.2300, L503.6030, L100.9950 ####[facility] [address] [place], [address] Nucleated RBC (Bld) [#/Vol] 0 10*3/uL Normal 0-5 [facility] Comment on above: Order Comment: PT NO T FASTING DR SLAUGHTER ORDERED TSHALL OTHER LABS WERE FOR DR LEWIS Performed By: #### L 504.2610, L501.9520, L500.4050, L100.0100, L503.6550, L3100.2300, L503.6030, L100.9950 ####[facility] [address] [place], [address] Platelet mean volume (Bld) [Entitic vol] 11.2 fL Normal 6.2-12.0 [facility] Comment on above: Order Comment: PT NO T FASTING DR SLAUGHTER ORDERED TSHALL OTHER LABS WERE FOR DR LEWIS Performed By: #### L 504.2610, L501.9520, L500.4050, L100.0100, L503.6550, L3100.2300, L503.6030, L100.9950 ####[facility] [address] [place], [address] Platelets (Bld) [#/Vol] 242 10*3/uL Normal 150-450 [facility] Comment on above: Order Comment: PT NO T FASTING DR SLAUGHTER ORDERED TSHALL OTHER LABS WERE FOR DR LEWIS Performed By: #### L 504.2610, L501.9520, L500.4050, L100.0100, L503.6550, L3100.2300, L503.6030, L100.9950 ####[facility] [address] [place], [address] RBC (Bld) [#/Vol] 4.12 10*6/uL Low 4.2-5.4 [facility] Comment on above: Order Comment: PT NO T FASTING DR SLAUGHTER ORDERED TSHALL OTHER LABS WERE FOR DR LEWIS Performed By: #### L 504.2610, L501.9520, L500.4050, L100.0100, L503.6550, L3100.2300, L503.6030, L100.9950 ####[facility] [address] [place], [address] RDW SD 49.3 fl High 35.1-43.9 [facility] Comment on above: Order Comment: PT NO T FASTING DR SLAUGHTER ORDERED TSHALL OTHER LABS WERE FOR DR LEWIS Performed By: #### L 504.2610, L501.9520, L500.4050, L100.0100, L503.6550, L3100.2300, L503.6030, L100.9950 ####[facility] [address] [place], [address] WBC (Bld) [#/Vol] 8.2 10*3/uL Normal 4.4-11.0 [facility] Comment on above: Order Comment: PT NO T FASTING DR SLAUGHTER ORDERED TSHALL OTHER LABS WERE FOR DR LEWIS Performed By: #### L 504.2610, L501.9520, L500.4050, L100.0100, L503.6550, L3100.2300, L503.6030, L100.9950 ####[facility] [address] [place], [address] Carbon dioxide measurementOr dered By: Dayton Lewis on 07-02-2024 CO2 [Moles/Vol] 27.0 mmol/L 21.0-32.0 [facility] Chloride measurementOrdered By: Dayton Lewis on 07-02-2024 Chloride [Moles/Vol] 106 mmol/L 98-107 [facility] Comprehensive Metabolic Prof ilon 07-02-2024 Albumin [Mass/Vol] 3.6 g/dL Normal 3.2-5.0 [facility] Comment on above: Order Comment: PT NO T FASTING DR SLAUGHTER ORDERED TSHALL OTHER LABS WERE FOR DR REGAN Performed By: #### L 504.2610, L501.9520, L500.4050, L100.0100, L503.6550, L3100.2300, L503.6030, L100.9950 ####[facility] [address] [place], [address] Albumin/Globulin [Mass ratio] 1.0 {ratio} Normal 0.9-2.4 [facility] Comment on above: Order Comment: PT NO T FASTING DR SLAUGHTER ORDERED TSHALL OTHER LABS WERE FOR DR REGAN Performed By: #### L 504.2610, L501.9520, L500.4050, L100.0100, L503.6550, L3100.2300, L503.6030, L100.9950 ####[facility] [address] [place], [address] ALK P 112 U/L Normal 45-117 [facility] Comment on above: Order Comment: PT NO T FASTING DR SLAUGHTER ORDERED TSHALL OTHER LABS WERE FOR DR REGAN Performed By: #### L 504.2610, L501.9520, L500.4050, L100.0100, L503.6550, L3100.2300, L503.6030, L100.9950 ####[facility] [address] [place], [address] ALT [Catalytic activity/Vol] 20 U/L Normal 13-56 [facility] Comment on above: Order Comment: PT NO T FASTING DR SLAUGHTER ORDERED TSHALL OTHER LABS WERE FOR DR REGAN Performed By: #### L 504.2610, L501.9520, L500.4050, L100.0100, L503.6550, L3100.2300, L503.6030, L100.9950 ####[facility] [address] [place], [address] AST [Catalytic activity/Vol] 9 U/L Low 15-37 [facility] Comment on above: Order Comment: PT NO T FASTING DR SLAUGHTER ORDERED TSHALL OTHER LABS WERE FOR DR REGAN Performed By: #### L 504.2610, L501.9520, L500.4050, L100.0100, L503.6550, L3100.2300, L503.6030, L100.9950 ####[facility] [address] [place], [address] Bilirubin [Mass/Vol] 0.50 mg/dL Normal 0.20-1.00 [facility] Comment on above: Order Comment: PT NO T FASTING DR SLAUGHTER ORDERED TSHALL OTHER LABS WERE FOR DR REGAN Result Comment: For patients on eltrombopag therapy, use of Dimension [place] TBIL is not recommended. Performed By: #### L 504.2610, L501.9520, L500.4050, L100.0100, L503.6550, L3100.2300, L503.6030, L100.9950 ####[facility] [address] [place], [place], [phone] BUN/CRE 17.1 RATIO Normal 10-20 [facility] Comment on above: Order Comment: PT NO T FASTING DR SLAUGHTER ORDERED TSHALL OTHER LABS WERE FOR DR REGAN Performed By: #### L 504.2610, L501.9520, L500.4050, L100.0100, L503.6550, L3100.2300, L503.6030, L100.9950 ####[facility] [address] [place], [address] CA,Total 9.3 mg/dL Normal 8.5-10.1 [facility] Comment on above: Order Comment: PT NO T FASTING DR SLAUGHTER ORDERED TSHALL OTHER LABS WERE FOR DR REGAN Performed By: #### L 504.2610, L501.9520, L500.4050, L100.0100, L503.6550, L3100.2300, L503.6030, L100.9950 ####[facility] [address] [place], [address] Chloride [Moles/Vol] 106 mmol/L Normal 98-107 [facility] Comment on above: Order Comment: PT NO T FASTING DR SLAUGHTER ORDERED TSHALL OTHER LABS WERE FOR DR REGAN Performed By: #### L 504.2610, L501.9520, L500.4050, L100.0100, L503.6550, L3100.2300, L503.6030, L100.9950 ####[facility] [address] [place], [address] CO2 [Moles/Vol] 27.0 mmol/L Normal 21.0-32.0 [facility] Comment on above: Order Comment: PT NO T FASTING DR SLAUGHTER ORDERED TSHALL OTHER LABS WERE FOR DR REGAN Performed By: #### L 504.2610, L501.9520, L500.4050, L100.0100, L503.6550, L3100.2300, L503.6030, L100.9950 ####[facility] [address] [place], [address] Creatinine [Mass/Vol] 0.94 mg/dL Normal 0.55-1.02 [facility] Comment on above: Order Comment: PT NO T FASTING DR SLAUGHTER ORDERED TSHALL OTHER LABS WERE FOR DR REGAN Result Comment: The validity of the calculated GFR GFRAA in patients over70 years has not been determined. Clinical correlation isessential. Performed By: #### L 504.2610, L501.9520, L500.4050, L100.0100, L503.6550, L3100.2300, L503.6030, L100.9950 ####[facility] [address] [place], [address] EST GFR - AA 77 mL/min Normal >60 [facility] Comment on above: Order Comment: PT NO T FASTING DR SLAUGHTER ORDERED TSHALL OTHER LABS WERE FOR DR REGAN Result Comment: Afri can [place] GFR Calc Performed By: #### L 504.2610, L501.9520, L500.4050, L100.0100, L503.6550, L3100.2300, L503.6030, L100.9950 ####[facility] [address] [place], [address] GAP 7 Normal 5-15 [facility] Comment on above: Order Comment: PT NO T FASTING DR SLAUGHTER ORDERED TSHALL OTHER LABS WERE FOR DR REGAN Performed By: #### L 504.2610, L501.9520, L500.4050, L100.0100, L503.6550, L3100.2300, L503.6030, L100.9950 ####[facility] [address] [place], [address] GFR/1.73 sq M.predicted among non-blacks MDRD (S/P/Bld) [Vol rate/Area] 64 mL/min/{1.73_m2} Normal >60 [facility] Comment on above: Order Comment: PT NO T FASTING DR SLAUGHTER ORDERED TSHALL OTHER LABS WERE FOR DR REGAN Result Comment: Non- GFR Calc Performed By: #### L 504.2610, L501.9520, L500.4050, L100.0100, L503.6550, L3100.2300, L503.6030, L100.9950 ####[facility] [address] [place], [address] Globulin (S) [Mass/Vol] 3.7 g/dL Normal 2.2-4.2 [facility] Comment on above: Order Comment: PT NO T FASTING DR SLAUGHTER ORDERED TSHALL OTHER LABS WERE FOR DR REGAN Performed By: #### L 504.2610, L501.9520, L500.4050, L100.0100, L503.6550, L3100.2300, L503.6030, L100.9950 ####[facility] [address] [place], [address] Glucose [Mass/Vol] 93 mg/dL Normal 74-106 [facility] Comment on above: Order Comment: PT NO T FASTING DR SLAUGHTER ORDERED TSHALL OTHER LABS WERE FOR DR REGAN Performed By: #### L 504.2610, L501.9520, L500.4050, L100.0100, L503.6550, L3100.2300, L503.6030, L100.9950 ####[facility] [address] [place], [address] Potassium [Moles/Vol] 3.7 mmol/L Normal 3.5-5.1 [facility] Comment on above: Order Comment: PT NO T FASTING DR SLAUGHTER ORDERED TSHALL OTHER LABS WERE FOR DR REGAN Performed By: #### L 504.2610, L501.9520, L500.4050, L100.0100, L503.6550, L3100.2300, L503.6030, L100.9950 ####[facility] [address] [place], [phone] Sodium [Moles/Vol] 140 mmol/L Normal 136-145 [facility] Comment on above: Order Comment: PT NO T FASTING DR SLAUGHTER ORDERED TSHALL OTHER LABS WERE FOR DR REGAN Performed By: #### L 504.2610, L501.9520, L500.4050, L100.0100, L503.6550, L3100.2300, L503.6030, L100.9950 ####[facility] [address] [place], [place], [phone] T PROT 7.3 g/dL Normal 6.4-8.2 [facility] Comment on above: Order Comment: PT NO T FASTING DR SLAUGHTER ORDERED TSHALL OTHER LABS WERE FOR DR REGAN Performed By: #### L 504.2610, L501.9520, L500.4050, L100.0100, L503.6550, L3100.2300, L503.6030, L100.9950 ####[facility] [address] [place], [address] Urea nitrogen [Mass/Vol] 16 mg/dL Normal 7-18 [facility] Comment on above: Order Comment: PT NO T FASTING DR SLAUGHTER ORDERED TSHALL OTHER LABS WERE FOR DR REGAN Performed By: #### L 504.2610, L501.9520, L500.4050, L100.0100, L503.6550, L3100.2300, L503.6030, L100.9950 ####[facility] [address] [place], [address] Eosinophil percentageOrdered By: Dayton Lewis on 07-02-2024 Eosinophils/100 WBC (Bld) 6.4 % High 0-5 [facility] Erythrocyte distribution wid th ratioOrdered By: Dayton Lewis on 07-02-2024 Erythrocyte distribution width (RBC) [Ratio] 14.5 % 11.6-14.6 [facility] Erythrocyte distribution wid th standard deviationOrdered By: Dayton Lewis on 07-02-2024 Erythrocyte distribution width (RBC) [Entitic vol] 49.3 fL High 35.1-43.9 [facility] Estimated glomerular filtrat ion rate (GFR) AmericanOrdered By: Dayton Lewis on 07-02-2024 Estimated GFR (MDRD) Amer 77 mL/min >60 [facility] Comment on above: GFR Calc Ferritinon 07-02-2024 Ferritin [Mass/Vol] 113 ng/mL Normal 8-252 [facility] Comment on above: Order Comment: PT NO T FASTING DR SLAUGHTER ORDERED TSHALL OTHER LABS WERE FOR DR REGAN Performed By: #### L 504.2610, L501.9520, L500.4050, L100.0100, L503.6550, L3100.2300, L503.6030, L100.9950 ####[facility] [address] [place], [place], [id number] Ferritin measurementOrdered By: Dayton Lewis on 07-02-2024 Ferritin [Mass/Vol] 113 ng/mL 8-252 [facility] Glomerular filtration rate ( GFR) estimationOrdered By: Dayton Lewis on 07-02-2024 Estimated GFR (MDRD) Non-Af Amer 64 mL/min >60 [facility] Comment on above: Non- GFR Calc Glucose measurementOrdered B y: Dayton Lewis on 07-02-2024 Glucose [Mass/Vol] 93 mg/dL 74-106 [facility] Hematocrit Auto (Bld) [Volum e fraction]Ordered By: Dayton Lewis on 07-02-2024 Hematocrit (Bld) [Volume fraction] 38.1 % 37-47 [facility] Hemoglobin (Reticulocytes) [ Entitic mass]Ordered By: Dayton Lewis on 07-02-2024 Reticulocyte Hemoglobin Equivalent 34.4 pg 30-35 [facility] Hemoglobin measurementOrdere d By: Dayton Lewis on 07-02-2024 Hemoglobin (Bld) [Mass/Vol] 12.5 g/dL 12.0-15.0 [facility] Immature granulocytes/100 WB C Auto (Bld)Ordered By: Dayton Lewis on 07-02-2024 Immature granulocytes/100 WBC (Bld) 0.400 % 0.0-0.9 [facility] Comment on above: IG% - Immature Granu locytes (promyelocytes, myelocytes and metamyelocytes) > 1% indicates that a LEFT SHIFT is Present. Immature reticulocyte fracti onOrdered By: Dayton Lewis on 07-02-2024 Immature Reticulocyte Fraction 10.80 % 3.00-15.90 [facility] Iron (Unsp spec) [Mass/Mass] Ordered By: Dayton Lewis on 07-02-2024 Iron [Mass/Vol] 54 ug/dL 50-170 [facility] Iron saturation [Mass fracti on]Ordered By: Dayton Lewis on 07-02-2024 Iron Saturation 18.6 % 15.0-55.0 [facility] Iron+Iron Binding Capacityon 07-02-2024 Iron [Mass/Vol] 54 ug/dL Normal 50-170 [facility] Comment on above: Order Comment: PT NO T FASTING DR SLAUGHTER ORDERED TSHALL OTHER LABS WERE FOR DR REGAN Performed By: #### L 504.2610, L501.9520, L500.4050, L100.0100, L503.6550, L3100.2300, L503.6030, L100.9950 ####[facility] [address] [place], [address] IRON SATURATION 18.6 Normal 15.0-55.0 [facility] Comment on above: Order Comment: PT NO T FASTING DR SLAUGHTER ORDERED TSHALL OTHER LABS WERE FOR DR REGAN Performed By: #### L 504.2610, L501.9520, L500.4050, L100.0100, L503.6550, L3100.2300, L503.6030, L100.9950 ####[facility] [address] [place], [address] TIBC 291 ug/dL Normal 250-450 [facility] Comment on above: Order Comment: PT NO T FASTING DR SLAUGHTER ORDERED TSHALL OTHER LABS WERE FOR DR REGAN Performed By: #### L 504.2610, L501.9520, L500.4050, L100.0100, L503.6550, L3100.2300, L503.6030, L100.9950 ####[facility] [address] [place], [address] LDHon 07-02-2024 LDH 139 U/L Normal 84-246 [facility] Comment on above: Order Comment: PT NO T FASTING DR SLAUGHTER ORDERED TSHALL OTHER LABS WERE FOR DR REGAN Performed By: #### L 504.2610, L501.9520, L500.4050, L100.0100, L503.6550, L3100.2300, L503.6030, L100.9950 ####[facility] [address] [place], [address] Laboratory - Chemistry and C hemistry - challengeOrdered By: Dayton Lewis on 07-02-2024 AST [Catalytic activity/Vol] 9 U/L Low 15-37 [facility] Lactate dehydrogenase (LDH) measurementOrdered By: Dayton Lewis on 07-02-2024 LDH [Catalytic activity/Vol] 139 U/L 84-246 [facility] Lymphocytes Auto (Unsp spec) [#/Vol]Ordered By: Dayton Lewis on 07-02-2024 Lymphocytes (Bld) [#/Vol] 1.58 10*3/uL 0.83-4.51 [facility] Lymphocytes/100 WBC Auto (Un sp spec)Ordered By: Dayton Lewis on 07-02-2024 Lymphocytes/100 WBC (Bld) 19.2 % 19-41 [facility] MCV (mean corpuscular volume ) determinationOrdered By: Dayton Lewis on 07-02-2024 MCV (RBC) [Entitic vol] 92.5 fL 81-99 [facility] Mean corpuscular hemoglobin (MCH) determinationOrdered By: Dayton Lewis on 07-02-2024 MCH (RBC) [Entitic mass] 30.3 pg 27.0-32.0 [facility] Mean corpuscular hemoglobin concentration (MCHC) determinationOrdered By: Dayton Lewis on 07-02-2024 MCHC (RBC) [Mass/Vol] 32.8 g/dL 32-36 [facility] Mean platelet volume determi nationOrdered By: Dayton Lewis on 07-02-2024 Platelet mean volume (Bld) [Entitic vol] 11.2 fL 6.2-12.0 [facility] Monocyte percentageOrdered B y: Dayton Lewis on 07-02-2024 Monocytes/100 WBC (Bld) 7.5 % 0-10 [facility] Neutrophil percentageOrdered By: Dayton Lewis on 07-02-2024 Neutrophils/100 WBC (Bld) 65.3 % 47-70 [facility] Nucleated red blood cell per centageOrdered By: Dayton Lewis on 07-02-2024 Nucleated RBC/100 WBC (Bld) [Ratio] 0 % 0-5 [facility] Oncology Visit Reporton 06-12 Oncology Visit Report Normal [facility] Platelet countOrdered By: Chelsea Lewis on 07-02-2024 Platelets (Bld) [#/Vol] 242 10*3/uL 150-450 [facility] Potassium measurementOrdered By: Dayton Lewis on 07-02-2024 Potassium [Moles/Vol] 3.7 mmol/L 3.5-5.1 [facility] RBC Auto (Bld) [#/Vol]Ordere d By: Dayton Lewis on 07-02-2024 RBC (Bld) [#/Vol] 4.12 10*6/uL Low 4.2-5.4 [facility] Retic Panelon 07-02-2024 IM RET FRACTION 10.80 Normal 3.00-15.90 [facility] Comment on above: Order Comment: PT NO T FASTING DR SLAUGHTER ORDERED TSHALL OTHER LABS WERE FOR DR LEWIS Performed By: #### L 504.2610, L501.9520, L500.4050, L100.0100, L503.6550, L3100.2300, L503.6030, L100.9950 ####[facility] [address] [place], [address] RET-HE 34.4 pg Normal 30-35 [facility] Comment on above: Order Comment: PT NO T FASTING DR SLAUGHTER ORDERED TSHALL OTHER LABS WERE FOR DR LEWIS Performed By: #### L 504.2610, L501.9520, L500.4050, L100.0100, L503.6550, L3100.2300, L503.6030, L100.9950 ####[facility] [address] [place], [address] Retic Count 2.01 High 0.5-1.5 [facility] Comment on above: Order Comment: PT NO T FASTING DR SLAUGHTER ORDERED TSHALL OTHER LABS WERE FOR DR LEWIS Performed By: #### L 504.2610, L501.9520, L500.4050, L100.0100, L503.6550, L3100.2300, L503.6030, L100.9950 ####[facility] [address] [place], [address] Reticulocytes Auto (Bld) [#/ Vol]Ordered By: Dayton Lewis on 07-02-2024 Reticulocyte Count 2.01 % High 0.5-1.5 [facility] Serum anion gap measurementO rdered By: Dayton Lewis on 07-02-2024 Anion gap [Moles/Vol] 7 mmol/L 5-15 [facility] Serum globulin measurementOr dered By: Dayton Lewis on 07-02-2024 Globulin (S) [Mass/Vol] 3.7 g/dL 2.2-4.2 [facility] Serum or plasma alanine zhu otransferase (ALT) measurementOrdered By: Dayton Lewis on 07-02-2024 ALT [Catalytic activity/Vol] 20 U/L 13-56 [facility] Serum or plasma albumin sourav urement (mass/volume)Ordered By: Dayton Lewis on 07-02-2024 Albumin [Mass/Vol] 3.6 g/dL 3.2-5.0 [facility] Serum or plasma alkaline omid sphatase measurementOrdered By: Dayton Lewis on 07-02-2024 ALP [Catalytic activity/Vol] 112 U/L 45-117 [facility] Serum or plasma calcium sourav urement (mass/volume)Ordered By: Dayton Lewis on 07-02-2024 Calcium [Mass/Vol] 9.3 mg/dL 8.5-10.1 [facility] Serum or plasma creatinine m easurement (mass/volume)Ordered By: Dayton Lewis on 07-02-2024 Creatinine [Mass/Vol] 0.94 mg/dL 0.55-1.02 [facility] Comment on above: The validity of the calculated GFR & GFRAA in patients over 70 years has not been determined. Clinical correlation is essential. Serum or plasma thyroid stim ulating hormone (TSH) measurement (units/volume)Ordered By: Antoni Slaughter on 07-02-2024 TSH Qn 11.500 uIU/mL High 0.358-3.740 [facility] Serum or plasma urea nitroge n measurement (mass/volume)Ordered By: Dayton Lewis on 07-02-2024 Urea nitrogen [Mass/Vol] 16 mg/dL 7-18 [facility] Sodium levelOrdered By: Allen Lewis on 07-02-2024 Sodium [Moles/Vol] 140 mmol/L 136-145 [facility] TIBCOrdered By: Dayton Lewis on 07-02-2024 Total Iron Binding Capacity 291 ug/dL 250-450 [facility] TSH QnOrdered By: Antoni Slaughter on 07-02-2024 Thyroid Stimulating Hormone (TSH) 11.500 uIU/mL High 0.358-3.740 [facility] Thyroid Stim Hormone (TSH)on 07-02-2024 TSH 11.500 uIU/mL High 0.358-3.740 [facility] Comment on above: Order Comment: PT NO T FASTING DR SLAUGHTER ORDERED TSHALL OTHER LABS WERE FOR DR REGAN Performed By: #### L 504.2610, L501.9520, L500.4050, L100.0100, L503.6550, L3100.2300, L503.6030, L100.9950 ####[facility] [address] [place], [place], [id number] Total proteinOrdered By: Eder Lewis on 07-02-2024 Protein [Mass/Vol] 7.3 g/dL 6.4-8.2 [facility] White blood cell (WBC) count Ordered By: Dayton Lewis on 07-02-2024 WBC (Bld) [#/Vol] 8.2 10*3/uL 4.4-11.0 [facility] Colonoscopy Reporton Colonoscopy Report Normal [facility] HER-2-OLINDA (initial)on 2024 HER-2-OLINDA (initial) Normal [facility] Comment on above: Performed By: #### P HER2 ####[facility] [address] [place], [place], [address] MR/POSTOP.ANEon 06-26-2024 MR/POSTOP.ANE Normal [facility] MR/ZUSSPBKE0je 06-26-2024 MR/POSTOPAN2 Normal [facility] Surgery Specimen Level Jung 06-26-2024 Surgery Specimen Level IV Normal [facility] Comment on above: Performed By: #### P SUIV ####[facility] [address] [place], [place], [id number] Gastroenterology Visit Repor ton 01-07-2025 Gastroenterology Visit Report Normal [facility] Internal Medicine Office Vis iton 04-30-2024 Internal Medicine Office Visit Normal [facility] Basophil percentageOrdered B y: Gideon Bowman on 08-25-2022 Chloride [Moles/Vol] 106 mmol/L 98-107 [facility] Glucose [Mass/Vol] 101 mg/dL 74-106 [facility] Comment on above: Fasting Glucose resu lt from 100 to 125 mg/dL suggests IMPAIRED HOMEOSTASIS per A.D.A. criteria. Potassium [Moles/Vol] 4.0 mmol/L 3.5-5.1 [facility] Sodium [Moles/Vol] 140 mmol/L 136-145 [facility] Laboratory - Chemistry and C hemistry - challengeOrdered By: Gideon Bowman on 08-25-2022 CO2 [Moles/Vol] 28.0 mmol/L 21.0-32.0 [facility] Urea nitrogen/Creatinine [Mass ratio] 33.3 mg/mg 10- [facility] No Panel InformationOrdered By: Gideon Bowman on 08-25-2022 Estimated GFR (MDRD) Amer 105 mL/min >60 [facility] Comment on above: GFR Calc Estimated GFR (MDRD) Non-Af Amer 87 mL/min >60 [facility] Comment on above: Non- GFR Calc Serum or plasma calcium sourav urement (mass/volume)Ordered By: Gideon Bowman on 08-25-2022 Calcium [Mass/Vol] 9.3 mg/dL 8.5-10.1 [facility] Serum or plasma creatinine m easurement (mass/volume)Ordered By: Gideon Bowman on 08-25-2022 Creatinine [Mass/Vol] 0.72 mg/dL 0.55-1.02 [facility] Comment on above: The validity of the calculated GFR & GFRAA in patients over 70 years has not been determined. Clinical correlation is essential. Serum or plasma urea nitroge n measurement (mass/volume)Ordered By: Gideon Bowman on 08-25-2022 Urea nitrogen [Mass/Vol] 24 mg/dL 7-18 [facility] Thin prep Papanicolaou smear with manual screeningOrdered By: Gideon Bowman on 08-25-2022 Thin prep Papanicolaou smear with manual screening 6 5-15 [facility] Absolute lymphocyte countOrd ered By: Gideon Bowman on 07-28-2022 Lymphocytes Auto (Unsp spec) [#/Vol] 1.51 10*3/uL 0.83-4.51 [facility] Basophil percentageOrdered B y: Gideon Bowman on 07-28-2022 Basophils/100 WBC (Bld) 1.0 % 0-1 [facility] Bilirubin [Mass/Vol] 0.40 mg/dL 0.20-1.00 [facility] Comment on above: For patients on eltr ombopag therapy, use of Dimension [place] TBIL is not recommended. Chloride [Moles/Vol] 105 mmol/L 98-107 [facility] Cholesterol [Mass/Vol] 287 mg/dL <200 [facility] Comment on above: <200 mg/dL Desirable 200-240 mg/dL Borderline >240 mg/dL High Risk Eosinophils/100 WBC (Bld) 5.2 % 0-5 [facility] Glucose [Mass/Vol] 91 mg/dL 74-106 [facility] Neutrophils (Bld) [#/Vol] 3.6 10*3/uL 2.0-7.7 [facility] Neutrophils/100 WBC (Bld) 60.6 % 47-70 [facility] Potassium [Moles/Vol] 4.2 mmol/L 3.5-5.1 [facility] Protein [Mass/Vol] 7.6 g/dL 6.4-8.2 [facility] Sodium [Moles/Vol] 139 mmol/L 136-145 [facility] Triglyceride [Mass/Vol] 227 mg/dL <199 [facility] Comment on above: The drugs N-Acetylcy steine and Metamizole may falsely depress this assay.Serum Triglycerides Reference Interval Normal <150 mg/dL Borderline high 150 - 199 mg/dL High 200 - 499 mg/dL Very High > or = 500 mg/dL WBC (Bld) [#/Vol] 5.9 10*3/uL 4.4-11.0 [facility] Blood erythrocytes count (nu mber/volume)Ordered By: Gideon Colby on 07-28-2022 RBC (Bld) [#/Vol] 4.16 10*6/uL 4.2-5.4 [facility] [facility] measurement (mass/volume)Ordered By: Gideon Bowman on 07-28-2022 Hemoglobin (Bld) [Mass/Vol] 12.7 g/dL 12.0-15.0 [facility] Blood lymphocytes/100 leukoc ytesOrdered By: Gideon Bowman on 07-28-2022 Lymphocytes/100 WBC (Bld) 25.5 % 19-41 [facility] Blood monocytes/100 leukocyt esOrdered By: Gideon Bowman on 07-28-2022 Monocytes/100 WBC (Bld) 7.4 % 0-10 [facility] Blood platelet mean volumeOr dered By: Gideon Bowman on 07-28-2022 Platelet mean volume (Bld) [Entitic vol] 12.3 fL 6.2-12.0 [facility] Determination of erythrocyte mean corpuscular volume (MCV)Ordered By: Gideon Bowman on 07-28-2022 MCV (RBC) [Entitic vol] 94.0 fL 81-99 [facility] Hematocrit Auto (Bld) [Volum e fraction]Ordered By: Gideon Bowman on 07-28-2022 Hematocrit (Bld) [Volume fraction] 39.1 % 37-47 [facility] - Chemistry and C hemistry - challengeOrdered By: Gideon Bowman on 07-28-2022 ALP [Catalytic activity/Vol] 84 U/L 45-117 [facility] ALT [Catalytic activity/Vol] 22 U/L 13-56 [facility] CO2 [Moles/Vol] 28.0 mmol/L 21.0-32.0 [facility] Globulin (S) [Mass/Vol] 3.7 g/dL 2.2-4.2 [facility] Urea nitrogen/Creatinine [Mass ratio] 23.3 mg/mg 10-20 [facility] - Hematology and Cell countsOrdered By: Gideon Bowman on 07-28-2022 Erythrocyte distribution width (RBC) [Entitic vol] 50.5 fL 35.1-43.9 [facility] Erythrocyte distribution width (RBC) [Ratio] 14.6 % 11.6-14.6 [facility] Immature granulocytes/100 WBC (Bld) 0.300 % 0.0-0.9 [facility] Comment on above: IG% - Immature Granu locytes (promyelocytes, myelocytes and metamyelocytes) > 1% indicates that a LEFT SHIFT is Present. MCH (RBC) [Entitic mass] 30.5 pg 27.0-32.0 [facility] Nucleated RBC/100 WBC (Bld) [Ratio] 0 % 0-5 [facility] MCHC Auto (RBC) [Mass/Vol]Or dered By: Gideon Bowman on 07-28-2022 MCHC (RBC) [Mass/Vol] 32.5 g/dL 32-36 [facility] [place] No Panel InformationOrdered By: Gideon Bowman on 07-28-2022 Estimated GFR (MDRD) Amer 91 mL/min >60 [facility] Comment on above: GFR Calc Estimated GFR (MDRD) Non-Af Amer 75 mL/min >60 [facility] Comment on above: Non- GFR Calc Thyroid Stimulating Hormone (TSH) 0.41 uIU/mL 0.358-3.74 [facility] Platelets bldOrdered By: Tiffany Bowman on 07-28-2022 Platelets (Bld) [#/Vol] 231 10*3/uL 150-450 [facility] Serum or plasma albumin sourav urement (mass/volume)Ordered By: Gideon Bowman on 07-28-2022 Albumin [Mass/Vol] 3.9 g/dL 3.2-5.0 [facility] Serum or plasma albumin/glob ulin mass ratioOrdered By: Gideon Bowman on 07-28-2022 Albumin/Globulin [Mass ratio] 1.1 {ratio} 0.9-2.4 [facility] Serum or plasma calcium sourav urement (mass/volume)Ordered By: Gideon Bowman on 07-28-2022 Calcium [Mass/Vol] 9.3 mg/dL 8.5-10.1 [facility] Serum or plasma cholesterol in HDL measurement (mass/volume)Ordered By: Gideon Bowman on 07-28-2022 Cholesterol in HDL [Mass/Vol] 34 mg/dL >40 [facility] Comment on above: The drugs N-Acetylcy steine and Metamizole may falsely depress this assay. Reference Range HDL <40 mg/dL Low HDL Cholesterol HDL >or= 60 mg/dL High HDL Cholesterol Serum or plasma cholesterol in VLDL measurement (mass/volume)Ordered By: Gideon Bowman on 07-28-2022 Cholesterol in VLDL [Mass/Vol] 45 mg/dL 5-40 [facility] Serum or plasma creatinine m easurement (mass/volume)Ordered By: Gideon Bowman on 07-28-2022 Creatinine [Mass/Vol] 0.81 mg/dL 0.55-1.02 [facility] [place] Comment on above: The validity of the calculated GFR & GFRAA in patients over 70 years has not been determined. Clinical correlation is essential. Serum or plasma low density lipoprotein (LDL) cholesterol measurement (mass/volume)Ordered By: Gideon Bowman on 07-28-2022 Cholesterol in LDL [Mass/Vol] 208 mg/dL 0-130 [facility] Serum or plasma urea nitroge n measurement (mass/volume)Ordered By: Gideon Bowman on 07-28-2022 Urea nitrogen [Mass/Vol] 19 mg/dL 7-18 [facility] Thin prep Papanicolaou smear with manual screeningOrdered By: Gideon Bowman on 07-28-2022 Thin prep Papanicolaou smear with manual screening 16 U/L 15-37 [facility] Thin prep Papanicolaou smear with manual screening 6 5-15 [facility] CORONAVIRUS PCR - [facility] 07-01-2021 SARS-CoV-2 (COVID-19) RNA JESSICA+probe Ql (Unsp spec) Positive Abnormal NORMAL: NEGATIVE [facility] Comment on above: Result Comment: { CA LLED TO INFECTION CONTROL { READ BACK BY Performed By: #### [id number] #### [facility],[address] [place] [address] SEND TO IC? YES Normal [facility] Comment on above: Result Comment: RESU LTS FAXED TO INFECTION CONTROL. SARS-CoV-2 THIS TEST IS BEING USED UNDER THE FDA EUA PROCEDURE. THIS ASSAY HAS BEEN VALIDATED IN THE [facility] FOR USE WITH NASOPHARYNGEAL SPECIMENS IN [facility]. INTERPRETIVE DATA LABORATORY TEST RESULTS SHOULD ALWAYS [...] PUBLIC HEALTH AUTHORITIES. Performed By: [id number] #### [facility],[address] [place] [address] Vital Signs Date Time Vital Sign Value Performing Clinician Faci lity 01-14-2025 13:09-0400 Body height 170.[address] Antoni Slaughter MD Work Phone: [facility] 01-14-2025 13:09-0400 Body mass index (BMI) [Ratio] 32.3 kg/m2 Dr. Antoni Slaughter MD Work Phone: [facility] 01-14-2025 13:09-0400 Body temperature 98.5 [degF] Dr. Antoni Slaughter MD Work Phone: [facility] 01-14-2025 13:09-0400 Body weight 93.[address] Antoni Slaughter MD Work Phone: [facility] 01-14-2025 13:09-0400 Diastolic blood pressure 78 mm[Hg] Dr. Antoni Slaughter MD Work Phone: [facility] 01-14-2025 13:09-0400 Heart rate 83 /min Dr. Antoni Slaughter MD Work Phone: [facility] 01-14-2025 13:09-0400 Respiratory rate 18 /min Dr. Antoni Slaughter MD Work Phone: [facility] 01-14-2025 13:09-0400 SaO2% (BldA) [Mass fraction] 96 % Dr. Antoni Slaughter MD Work Phone: [facility] 01-14-2025 13:09-0400 Systolic blood pressure 120 mm[Hg] Dr. Antoni Slaughter MD Work Phone: [facility] 12-03-2024 11:27-0400 Body temperature 96 [degF] Dr. Antoni Slaughter MD Work Phone: [facility] 12-03-2024 11:27-0400 Diastolic blood pressure 71 mm[Hg] Dr. Antoni Slaughter MD Work Phone: [facility] 12-03-2024 11:27-0400 Heart rate 71 /min Dr. Antoni Slaughter MD Work Phone: [facility] 12-03-2024 11:27-0400 Respiratory rate 16 /min Dr. Antoni Slaughter MD Work Phone: [facility] 12-03-2024 11:27-0400 SaO2% (BldA) [Mass fraction] 98 % Dr. Antoni Slaughter MD Work Phone: [facility] 12-03-2024 11:27-0400 Systolic blood pressure 140 mm[Hg] Dr. Antoni Slaughter MD Work Phone: [facility] 12-01-2024 10:02-0400 Body height 170.[address] Antoni Slaughter MD Work Phone: [facility] 12-01-2024 10:02-0400 Body mass index (BMI) [Ratio] 32.4 kg/m2 Dr. Antoni Slaughter MD Work Phone: [facility] 12-01-2024 10:02-0400 Body temperature 96.2 [degF] Dr. Antoni Slaughter MD Work Phone: [facility] 12-01-2024 10:02-0400 Body weight 93.[address] Antoni Slaughter MD Work Phone: [facility] 12-01-2024 10:02-0400 Diastolic blood pressure 62 mm[Hg] Dr. Antoni Slaughter MD Work Phone: [facility] 12-01-2024 10:02-0400 Heart rate 58 /min Dr. Antoni Slaughter MD Work Phone: [facility] 12-01-2024 10:02-0400 Respiratory rate 18 /min Dr. Antoni Slaughter MD Work Phone: [facility] 12-01-2024 10:02-0400 SaO2% (BldA) [Mass fraction] 97 % Dr. Antoni Slaughter MD Work Phone: [facility] 12-01-2024 10:02-0400 Systolic blood pressure 99 mm[Hg] Dr. Antoni Slaughter MD Work Phone: [facility] 11-19-2024 10:09-0400 Body temperature 95.8 [degF] Dr. Antoni Slaughter MD Work Phone: [facility] 11-19-2024 10:09-0400 Diastolic blood pressure 69 mm[Hg] Dr. Antoni Slaughter MD Work Phone: [facility] 11-19-2024 10:09-0400 Heart rate 71 /min Dr. Antoni Slaughter MD Work Phone: [facility] 11-19-2024 10:09-0400 Respiratory rate 16 /min Dr. Antoni Slaughter MD Work Phone: [facility] 11-19-2024 10:09-0400 SaO2% (BldA) [Mass fraction] 99 % Dr. Antoni Slaughter MD Work Phone: [facility] 11-19-2024 10:09-0400 Systolic blood pressure 140 mm[Hg] Dr. Antoni Slaughter MD Work Phone: [facility] 11-17-2024 09:07-0400 Body height 170.[address] Antoni Salughter MD Work Phone: [facility] 11-17-2024 09:07-0400 Body mass index (BMI) [Ratio] 32.8 kg/m2 Dr. Antoni Slaughter MD Work Phone: [facility] 11-17-2024 09:07-0400 Body temperature 98.3 [degF] Dr. Antoni Slaughter MD Work Phone: [facility] 11-17-2024 09:07-0400 Body weight 95.[address] Antoni Slaughter MD Work Phone: [facility] 11-17-2024 09:07-0400 Diastolic blood pressure 76 mm[Hg] Dr. Antoni Slaughter MD Work Phone: [facility] 11-17-2024 09:07-0400 Heart rate 73 /min Dr. Antoni Slaughter MD Work Phone: [facility] 11-17-2024 09:07-0400 Respiratory rate 18 /min Dr. Antoni Slaughter MD Work Phone: [facility] 11-17-2024 09:07-0400 SaO2% (BldA) [Mass fraction] 98 % Dr. Antoni Slaughter MD Work Phone: [facility] 11-17-2024 09:07-0400 Systolic blood pressure 123 mm[Hg] Dr. Antoni Slaughter MD Work Phone: [facility] 11-06-2024 12:05-0400 Body temperature 97.6 [degF] Dr. Antoni Slaughter MD Work Phone: [facility] 11-06-2024 12:05-0400 Diastolic blood pressure 65 mm[Hg] Dr. Antoni Slaughter MD Work Phone: [facility] 11-06-2024 12:05-0400 Heart rate 72 /min Dr. Antoni Slaughter MD Work Phone: [facility] 11-06-2024 12:05-0400 Respiratory rate 16 /min Dr. Antoni Slaughter MD Work Phone: [facility] 11-06-2024 12:05-0400 SaO2% (BldA) [Mass fraction] 98 % Dr. Antoni Slaughter MD Work Phone: [facility] 11-06-2024 12:05-0400 Systolic blood pressure 122 mm[Hg] Dr. Antoni Slaughter MD Work Phone: [facility] 2024 09:13-0400 Body height 170.[address] Antoni Slaughter MD Work Phone: [facility] 2024 09:13-0400 Body mass index (BMI) [Ratio] 32.8 kg/m2 Dr. Antoni Slaughter MD Work Phone: [facility] 2024 09:13-0400 Body temperature 97.4 [degF] Dr. Antoni Slaughter MD Work Phone: [facility] 2024 09:13-0400 Body weight 94.[address] Antoni Slaughter MD Work Phone: [facility] 2024 09:13-0400 Diastolic blood pressure 80 mm[Hg] Dr. Antoni Slaughter MD Work Phone: [facility] 2024 09:13-0400 Heart rate 90 /min Dr. Antoni Slaughter MD Work Phone: [facility] 2024 09:13-0400 Respiratory rate 16 /min Dr. Antoni Slaughter MD Work Phone: [facility] 2024 09:13-0400 SaO2% (BldA) [Mass fraction] 98 % Dr. Antoni Slaughter MD Work Phone: [facility] 2024 09:13-0400 Systolic blood pressure 138 mm[Hg] Dr. Antoni Slaughter MD Work Phone: [facility] 11-04-2024 09:46-0400 Body height 170.[address] Antoni Slaughter MD Work Phone: [facility] 11-04-2024 09:46-0400 Body mass index (BMI) [Ratio] 32.5 kg/m2 Dr. Antoni Slaughter MD Work Phone: [facility] 11-04-2024 09:46-0400 Body temperature 98.6 [degF] Dr. Antoni Slaughter MD Work Phone: [facility] 11-04-2024 09:46-0400 Body weight 94.[address] Antoni Slaughter MD Work Phone: [facility] 11-04-2024 09:46-0400 Diastolic blood pressure 76 mm[Hg] Dr. Antoni Slaughter MD Work Phone: [facility] 11-04-2024 09:46-0400 Heart rate 62 /min Dr. Antoni Slaughter MD Work Phone: [facility] 11-04-2024 09:46-0400 Respiratory rate 18 /min Dr. Antoni Slaughter MD Work Phone: [facility] 11-04-2024 09:46-0400 SaO2% (BldA) [Mass fraction] 99 % Dr. Antoni Slaughter MD Work Phone: [facility] 11-04-2024 09:46-0400 Systolic blood pressure 119 mm[Hg] Dr. Antoni Slaughter MD Work Phone: [facility] 10-22-2024 11:12-0400 Body temperature 97.4 [degF] Dr. Antoni Slaughter MD Work Phone: [facility] 10-22-2024 11:12-0400 Diastolic blood pressure 68 mm[Hg] Dr. Antoni Slaughter MD Work Phone: [facility] 10-22-2024 11:12-0400 Heart rate 71 /min Dr. Antoni Slaughter MD Work Phone: [facility] 10-22-2024 11:12-0400 Respiratory rate 16 /min Dr. Antoni Slaughter MD Work Phone: [facility] 10-22-2024 11:12-0400 SaO2% (BldA) [Mass fraction] 98 % Dr. Antoni Slaughter MD Work Phone: [facility] 10-22-2024 11:12-0400 Systolic blood pressure 146 mm[Hg] Dr. Antoni Slaughter MD Work Phone: [facility] 10-20-2024 09:32-0400 Body mass index (BMI) [Ratio] 32.2 kg/m2 Dr. Antoni Slaughter MD Work Phone: [facility] 10-20-2024 09:32-0400 Body temperature 98.3 [degF] Dr. Antoni Slaughter MD Work Phone: [facility] 10-20-2024 09:32-0400 Body weight 93.[address] Antoni Slaughter MD Work Phone: [facility] 10-20-2024 09:32-0400 Diastolic blood pressure 72 mm[Hg] Dr. Antoni Slaughter MD Work Phone: [facility] 10-20-2024 09:32-0400 Heart rate 70 /min Dr. Antoni Slaughter MD Work Phone: [facility] 10-20-2024 09:32-0400 Respiratory rate 18 /min Dr. Antoni Slaughter MD Work Phone: [facility] 10-20-2024 09:32-0400 SaO2% (BldA) [Mass fraction] 99 % Dr. Antoni Slaughter MD Work Phone: [facility] 10-20-2024 09:32-0400 Systolic blood pressure 113 mm[Hg] Dr. Antoni Slaughter MD Work Phone: [facility] 10-06-2024 15:16-0400 Inhaled oxygen flow rate 2 L/min Dr. Antoni Slaughter MD Work Phone: [facility] 10-06-2024 09:33-0400 Body mass index (BMI) [Ratio] 32.5 kg/m2 Dr. Antoni Slaughter MD Work Phone: [facility] 10-06-2024 09:33-0400 Body temperature 96 [degF] Dr. Antoni Slaughter MD Work Phone: [facility] 10-06-2024 09:33-0400 Body weight 94.[address] Antoni Slaughter MD Work Phone: [facility] 10-06-2024 09:33-0400 Diastolic blood pressure 72 mm[Hg] Dr. Antoni Slaughter MD Work Phone: [facility] 10-06-2024 09:33-0400 Heart rate 73 /min Dr. Antoni Slaughter MD Work Phone: [facility] 10-06-2024 09:33-0400 Respiratory rate 16 /min Dr. Antoni Slaughter MD Work Phone: [facility] 10-06-2024 09:33-0400 SaO2% (BldA) [Mass fraction] 98 % Dr. Antoni Slaughter MD Work Phone: [facility] 10-06-2024 09:33-0400 Systolic blood pressure 115 mm[Hg] Dr. Antoni Slaughter MD Work Phone: [facility] 09-29-2024 09:55-0400 Body mass index (BMI) [Ratio] 31.8 kg/m2 Dr. Antoni Slaughter MD Work Phone: [facility] 09-29-2024 09:55-0400 Body temperature 98 [degF] Dr. Antoni Slaughter MD Work Phone: [facility] 09-29-2024 09:55-0400 Body weight 92.[address] Antoni Slaughter MD Work Phone: [facility] 09-29-2024 09:55-0400 Diastolic blood pressure 66 mm[Hg] Dr. Anotni Slaughter MD Work Phone: [facility] 09-29-2024 09:55-0400 Heart rate 82 /min Dr. Antoni Slaughter MD Work Phone: [facility] 09-29-2024 09:55-0400 Respiratory rate 16 /min Dr. Antoni Slaughter MD Work Phone: [facility] 09-29-2024 09:55-0400 SaO2% (BldA) [Mass fraction] 98 % Dr. Antoni Slaughter MD Work Phone: [facility] 09-29-2024 09:55-0400 Systolic blood pressure 97 mm[Hg] Dr. Antoni Slaughter MD Work Phone: [facility] 09-22-2024 09:20-0400 Body mass index (BMI) [Ratio] 32.5 kg/m2 Dr. Antoni Slaughter MD Work Phone: [facility] 09-22-2024 09:20-0400 Body temperature 98.2 [degF] Dr. Antoni Slaughter MD Work Phone: [facility] 09-22-2024 09:20-0400 Body weight 94.[address] Antoni Slaughter MD Work Phone: [facility] 09-22-2024 09:20-0400 Diastolic blood pressure 88 mm[Hg] Dr. Antoni Slaughter MD Work Phone: [facility] 09-22-2024 09:20-0400 Heart rate 74 /min Dr. Antoni Slaughter MD Work Phone: [facility] 09-22-2024 09:20-0400 Respiratory rate 18 /min Dr. Antoni Slaughter MD Work Phone: [facility] 09-22-2024 09:20-0400 SaO2% (BldA) [Mass fraction] 95 % Dr. Antoni Slaughter MD Work Phone: [facility] 09-22-2024 09:20-0400 Systolic blood pressure 124 mm[Hg] Dr. Antoni Slaughter MD Work Phone: [facility] 09-17-2024 09:55-0400 Body temperature 97.6 [degF] Dr. Antoni Slaughter MD Work Phone: [facility] 09-17-2024 09:55-0400 Diastolic blood pressure 69 mm[Hg] Dr. Antoni Slaughter MD Work Phone: [facility] 09-17-2024 09:55-0400 Heart rate 66 /min Dr. Antoni Slaughter MD Work Phone: [facility] 09-17-2024 09:55-0400 Respiratory rate 16 /min Dr. Antoni Slaughter MD Work Phone: [facility] 09-17-2024 09:55-0400 SaO2% (BldA) [Mass fraction] 95 % Dr. Antoni Slaughter MD Work Phone: [facility] 09-17-2024 09:55-0400 Systolic blood pressure 109 mm[Hg] Dr. Antoni Slaughter MD Work Phone: [facility] 09-17-2024 07:48-0400 Body height 170.[address] Antoni Slaughter MD Work Phone: [facility] 09-17-2024 07:48-0400 Body mass index (BMI) [Ratio] 31.7 kg/m2 Dr. Antoni Slaughter MD Work Phone: [facility] 09-17-2024 07:48-0400 Body weight [address] Antoni Slaughter MD Work Phone: [facility] 09-09-2024 14:56-0400 Body mass index (BMI) [Ratio] 32.2 kg/m2 Dr. Antoni Slaughter MD Work Phone: [facility] 09-09-2024 14:56-0400 Body temperature 97.4 [degF] Dr. Antoni Slaughter MD Work Phone: [facility] 09-09-2024 14:56-0400 Body weight 93.[address] Antoni Slaughter MD Work Phone: [facility] 09-09-2024 14:56-0400 Diastolic blood pressure 81 mm[Hg] Dr. Antoni Slaughter MD Work Phone: [facility] 09-09-2024 14:56-0400 Heart rate 86 /min Dr. Antoni Slaughter MD Work Phone: [facility] 09-09-2024 14:56-0400 Respiratory rate 16 /min Dr. Antoni Slaughter MD Work Phone: [facility] 09-09-2024 14:56-0400 SaO2% (BldA) [Mass fraction] 98 % Dr. Antoni Slaughter MD Work Phone: [facility] 09-09-2024 14:56-0400 Systolic blood pressure 144 mm[Hg] Dr. Antoni Slaughter MD Work Phone: [facility] 09-08-2024 09:17-0400 Body weight 93.[address] Antoni Slaughter MD Work Phone: [facility] 09-08-2024 08:54-0400 Diastolic blood pressure 72 mm[Hg] Dr. Antoni Slaughter MD Work Phone: [facility] 09-08-2024 08:54-0400 Respiratory rate 16 /min Dr. Antoni Slaughter MD Work Phone: [facility] 09-08-2024 08:54-0400 Systolic blood pressure 113 mm[Hg] Dr. Antoni Slaughter MD Work Phone: [facility] 09-04-2024 13:38-0400 Body temperature 96.5 [degF] Dr. Antoni Slaughter MD Work Phone: [facility] 09-04-2024 13:38-0400 Diastolic blood pressure 83 mm[Hg] Dr. Antoni Slaughter MD Work Phone: [facility] 09-04-2024 13:38-0400 Heart rate 67 /min Dr. Antoni Slaughter MD Work Phone: [facility] 09-04-2024 13:38-0400 Respiratory rate 16 /min Dr. Antoni Slaughter MD Work Phone: [facility] 09-04-2024 13:38-0400 SaO2% (BldA) [Mass fraction] 97 % Dr. Antoni Slaughter MD Work Phone: [facility] 09-04-2024 13:38-0400 Systolic blood pressure 146 mm[Hg] Dr. Antoni Slaughter MD Work Phone: [facility] 08-29-2024 11:11-0400 Body mass index (BMI) [Ratio] 32.11 kg/m2 Vibha Flores MD Work Phone: [facility] 08-29-2024 11:11-0400 Body weight 92.99 kg Vibha Flores MD Work Phone: [facility] 08-29-2024 11:11-0400 Diastolic blood pressure 84 mm[Hg] Vibha Flores MD Work Phone: [facility] 08-29-2024 11:11-0400 Heart rate 90 /min Vibha Flores MD Work Phone: [facility] 08-29-2024 11:11-0400 Systolic blood pressure 138 mm[Hg] Vibha Flores MD Work Phone: [facility] 08-07-2024 13:52-0500 Body height 170.[address] [facility] 08-07-2024 13:52-0500 Body mass index (BMI) [Ratio] 32.26 kg/m2 Pst [address] [facility] 08-07-2024 13:52-0500 Body temperature 98.2 [degF] [address] [place] [address] 08-07-2024 13:52-0500 Body weight 93.[address] [facility] 08-07-2024 13:52-0500 Diastolic blood pressure 77 mm[Hg] Pst [address] [facility] 08-07-2024 13:52-0500 Heart rate 72 /min Pst [address] [facility] 08-07-2024 13:52-0500 Respiratory rate 16 /min [address] [place] [address] 08-07-2024 13:52-0500 SaO2% (BldA) [Mass fraction] 97 % Pst [address] [facility] 08-07-2024 13:52-0500 Systolic blood pressure 120 mm[Hg] Pst [address] [facility] 08-04-2024 08:08-0500 Body height 170.[address] Antoni Slaughter MD Work Phone: [facility] 08-04-2024 08:08-0500 Body mass index (BMI) [Ratio] 32.5 kg/m2 Dr. Antoni Slaughter MD Work Phone: [facility] 08-04-2024 08:08-0500 Body temperature 96.4 [degF] Dr. Antoni Slaughter MD Work Phone: [facility] 08-04-2024 08:08-0500 Body weight 94.[address] Antoni Slaughter MD Work Phone: [facility] 08-04-2024 08:08-0500 Diastolic blood pressure 78 mm[Hg] Dr. Antoni Slaughter MD Work Phone: [facility] 08-04-2024 08:08-0500 Heart rate 73 /min Dr. Antoni Slaughter MD Work Phone: [facility] 08-04-2024 08:08-0500 Respiratory rate 16 /min Dr. Antoni Slaughter MD Work Phone: [facility] 08-04-2024 08:08-0500 SaO2% (BldA) [Mass fraction] 98 % Dr. Antoni Slaughter MD Work Phone: [facility] 08-04-2024 08:08-0500 Systolic blood pressure 118 mm[Hg] Dr. Antoni Slaughter MD Work Phone: [facility] 08-01-2024 10:25-0500 Body height 170.2 cm Vibha Flores MD Work Phone: [facility] 08-01-2024 10:25-0500 Body mass index (BMI) [Ratio] 32.89 kg/m2 Vibha Flores MD Work Phone: [facility] 08-01-2024 10:25-0500 Body weight 95.25 kg Vibha Flores MD Work Phone: [facility] 08-01-2024 10:25-0500 Diastolic blood pressure 85 mm[Hg] Vibha Flores MD Work Phone: [facility] 08-01-2024 10:25-0500 Heart rate 71 /min Vibha Flores MD Work Phone: [facility] 08-01-2024 10:25-0500 Systolic blood pressure 132 mm[Hg] Vibha Flores MD Work Phone: [facility] 07-29-2024 10:01-0500 Body weight 94.[address] Antoni Slaughter MD Work Phone: [facility] 07-18-2024 08:37-0500 Body height 170.2 cm Vibha Flores MD Work Phone: [facility] 07-18-2024 08:37-0500 Body mass index (BMI) [Ratio] 32.87 kg/m2 Vibha Flores MD Work Phone: [facility] 07-18-2024 08:37-0500 Body weight 95.21 kg Vibha Flores MD Work Phone: [facility] 07-18-2024 08:37-0500 Diastolic blood pressure 73 mm[Hg] Vibha Flores MD Work Phone: [facility] 07-18-2024 08:37-0500 Heart rate 76 /min Vibha Flores MD Work Phone: [facility] 07-18-2024 08:37-0500 Systolic blood pressure 112 mm[Hg] Vibha Flores MD Work Phone: [facility] 07-02-2024 10:04-0500 Body mass index (BMI) [Ratio] 32.9 kg/m2 Dr. Antoni Slaughter MD Work Phone: [facility] 07-02-2024 10:04-0500 Body weight 95.[address] Antoni Slaughter MD Work Phone: [facility] 07-02-2024 10:01-0500 Body temperature 98.3 [degF] Dr. Antoni Slaughter MD Work Phone: [facility] 07-02-2024 10:01-0500 Diastolic blood pressure 79 mm[Hg] Dr. Antoni Slaughter MD Work Phone: [facility] 07-02-2024 10:01-0500 Heart rate 69 /min Dr. Antoni Slaughter MD Work Phone: [facility] 07-02-2024 10:01-0500 Respiratory rate 18 /min Dr. Antoni Slaughter MD Work Phone: [facility] 07-02-2024 10:01-0500 SaO2% (BldA) [Mass fraction] 99 % Dr. Antoni Slaughter MD Work Phone: [facility] 07-02-2024 10:01-0500 Systolic blood pressure 129 mm[Hg] Dr. Antoni Slaughter MD Work Phone: [facility] 06-26-2024 11:20-0500 Body temperature 97 [degF] Dr. Antoni Slaughter MD Work Phone: [facility] 06-26-2024 11:20-0500 Diastolic blood pressure 62 mm[Hg] Dr. Antoni Slaughter MD Work Phone: [facility] 06-26-2024 11:20-0500 Heart rate 66 /min Dr. Antoni Slaughter MD Work Phone: [facility] 06-26-2024 11:20-0500 Respiratory rate 16 /min Dr. Antoni Slaughter MD Work Phone: [facility] 06-26-2024 11:20-0500 SaO2% (BldA) [Mass fraction] 95 % Dr. Antoni Slaughter MD Work Phone: [facility] 06-26-2024 11:20-0500 Systolic blood pressure 101 mm[Hg] Dr. Antoni Slaughter MD Work Phone: [facility] 06-26-2024 09:36-0500 Body mass index (BMI) [Ratio] 33.4 kg/m2 Dr. Antoni Slaughter MD Work Phone: [facility] 06-26-2024 09:36-0500 Body weight 96.[address] Antoni Slaughter MD Work Phone: [facility] 04-30-2024 13:52-0500 Body mass index (BMI) [Ratio] 32.9 kg/m2 Dr. Antoni Slaughter MD Work Phone: [facility] 04-30-2024 13:52-0500 Body temperature 97.1 [degF] Dr. Antoni Slaughter MD Work Phone: [facility] 04-30-2024 13:52-0500 Body weight 95.[address] Antoni Slaughter MD Work Phone: [facility] 04-30-2024 13:52-0500 Diastolic blood pressure 84 mm[Hg] Dr. Antoni Slaughter MD Work Phone: [facility] 04-30-2024 13:52-0500 Heart rate 86 /min Dr. Antoni Slaughter MD Work Phone: [facility] 04-30-2024 13:52-0500 Respiratory rate 16 /min Dr. Antoni Slaughter MD Work Phone: [facility] 04-30-2024 13:52-0500 SaO2% (BldA) [Mass fraction] 95 % Dr. Antoni Slaughter MD Work Phone: [facility] 04-30-2024 13:52-0500 Systolic blood pressure 120 mm[Hg] Dr. Antoni Slaughter MD Work Phone: [facility] 08-25-2022 08:51-0400 Body height 170.[address] Antoni Slaughter Work Phone: [facility] 08-25-2022 08:51-0400 Body mass index (BMI) [Ratio] 31.9 kg/m2 Dr. Antoni Slaughter Work Phone: [facility] 08-25-2022 08:51-0400 Body temperature 97.4 [degF] Dr. Antoni Slaughter Work Phone: [facility] 08-25-2022 08:51-0400 Body weight 92.[address] Antoni Slaughter Work Phone: [facility] 08-25-2022 08:51-0400 Diastolic blood pressure 74 mm[Hg] Dr. Antoni Slaughter Work Phone: [facility] 08-25-2022 08:51-0400 Heart rate 74 /min Dr. Antoni Slaughter Work Phone: [facility] 08-25-2022 08:51-0400 Respiratory rate 18 /min Dr. Antoni Slaughter Work Phone: [facility] 08-25-2022 08:51-0400 SaO2% (BldA) [Mass fraction] 96 % Dr. Antoni Slaughter Work Phone: [facility] 08-25-2022 08:51-0400 Systolic blood pressure 134 mm[Hg] Dr. Antoni Slaughter Work Phone: [facility] 07-28-2022 07:58-0500 Body height 170.[address] Antoni Slaughter Work Phone: [facility] 07-28-2022 07:58-0500 Body mass index (BMI) [Ratio] 32.1 kg/m2 Dr. Antoni Slaughter Work Phone: [facility] 07-28-2022 07:58-0500 Body temperature 97 [degF] Dr. Antoni Slaughter Work Phone: [facility] 07-28-2022 07:58-0500 Body weight 93.[address] Antoni Slaughter Work Phone: [facility] 07-28-2022 07:58-0500 Diastolic blood pressure 100 mm[Hg] Dr. Antoni Slaughter Work Phone: [facility] 07-28-2022 07:58-0500 Heart rate 78 /min Dr. Antoni Slaughter Work Phone: [facility] 07-28-2022 07:58-0500 Respiratory rate 18 /min Dr. Antoni Slaughter Work Phone: [facility] 07-28-2022 07:58-0500 SaO2% (BldA) [Mass fraction] 98 % Dr. Antoni Slaughter Work Phone: [facility] 07-28-2022 07:58-0500 Systolic blood pressure 158 mm[Hg] Dr. Antoni Slaughter Work Phone: [facility] Encounters Encounter Date Encounter Type Care Provider Facility Start: 01-22-2025 ambulatory Sofia Kenyon ty:[facility] Start: 01-20-2025 ambulatory Antoni Kenyon ty:[facility] Start: 01-14-[address] Dayton Leiws MD -[facility] Start: 01-14-2025 End: 01-14-[address] Antoni Leach MD -[facility] Work Phone: Start: 01-14-2025 End: 01-14-[address] Antoni Slaughter MD Work Phone: -[facility] Start: 12-23-2024 End: 12-23-[address] Antoni Slaughter MD Work Phone: -Cat Scan [facility] Start: 12-23-2024 End: 12-23-[address] Antoni Leach MD -Cat Scan [facility] Work Phone: Start: 12-23-2024 End: 12-23-2024 ambulatory Antoni Leach Facility:[facility] Start: 12-03-[address] Dayton Lewis MD -[facility] Start: 12-01-[address] Dayton Lewis MD -[facility] Start: 12-01-2024 End: 12-01-[address] Antoni Leach MD -[facility] Work Phone: Start: 12-01-2024 End: 12-01-[address] Antoni Slaughter MD Work Phone: [facility] Work Phone: Start: 11-17-2024 End: 11-17-[address] Antoni Slaughter MD Work Phone: [facility] Work Phone: Start: 11-17-2024 End: 11-17-2024 Patient encounter procedure Ceci Hebert PLANT PHYSIOLOGY TEACHER-C -[facility] Work Phone: Start: 11-17-[address] Dayton Lewis MD -[facility] Start: 2024 End: [address] Antoni Slaughter MD -[facility] Work Phone: Start: 2024 End: [address] Antoni Slaughter MD Work Phone: [facility] Work Phone: Start: 11-04-2024 End: 11-04-2024 Patient encounter procedure Ceci Emilee PLANT PHYSIOLOGY TEACHER-C -[facility] Work Phone: Start: 11-04-2024 End: 11-04-[address] Antoni Slaughter MD Work Phone: [facility] Work Phone: Start: 11-04-[address] Dayton Lewis MD -[facility] Start: 10-20-2024 End: 10-20-2024 Patient encounter procedure Ceci Emilee PLANT PHYSIOLOGY TEACHER-C -[facility] Work Phone: Start: 10-20-2024 End: 10-20-2024 ambulatory Ceci Emilee PLANT PHYSIOLOGY TEACHER Facility:[facility] Start: 10-06-2024 End: 10-06-[address] Antoni Leach MD -[facility] Work Phone: Start: 10-06-2024 End: 10-06-2024 ambulatory Renardbe Alejandrae Facility:[facility] Start: 09-29-2024 End: 09-29-2024 Patient encounter procedure Ceci Emilee PLANT PHYSIOLOGY TEACHER-C -[facility] Work Phone: Start: 09-29-2024 End: 09-29-2024 ambulatory Ceci Emilee PLANT PHYSIOLOGY TEACHER Facility:[facility] Start: 09-22-2024 End: 09-22-[address] Antoni Leach MD -[facility] Work Phone: Start: 09-22-2024 End: 09-22-2024 ambulatory Renardsnehal Kleverlisbetpauly Facility:[facility] Start: 09-17-2024 ambulatory Humberto Bearden lity:[facility] Start: 09-17-2024 Non-patient / Non-visit Dr. Nuria Leigh MD -[facility] Start: 09-17-2024 End: 09-17-2024 Admission to same day surgery center Dr. Humberto Leigh MD -[facility] Start: 09-17-2024 End: 09-17-[address] 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 Humberto Leigh MD -[facility] Work Phone: Start: 09-08-2024 End: 09-08-2024 ambulatory Efewongbe Olelisbete Facility:[facility] Start: 09-04-[address] Dayton Lewis MD -[facility] Start: 09-04-2024 End: 09-04-[address] 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 Start: 08-07-2024 End: 08-07-2024 Patient encounter procedure Ostomy Nurse [facility] Comment on [...] Start: 08-07-2024 [facility] Start: 08-04-2024 End: 08-04-[address] Antoni Slaughter MD -[facility] Work Phone: Start: 08-04-2024 End: 08-04-[address] Antoni Slaughter MD Work Phone: [facility] Work Phone: Start: 08-04-2024 End: 08-04-2024 ambulatory Antoni Slaughter Facility:[facility] Start: 08-01-2024 End: 08-01-2024 Patient encounter procedure Vibha Flores MD Work Phone: [facility] Comment on above: Rectal cancer (HCC) (Primary Dx) Start: 08-01-2024 End: 08-01-2024 ambulatory VIBHA TOPEKA Facility:[facility] Start: 07-29-2024 ambulatory Antoni Slaughter Facili ty:[facility] Start: 07-18-2024 End: 07-18-2024 Office outpatient new 45 minutes Vibha Flores MD Work Phone: [facility] Comment on above: Rectal cancer (HCC) (Primary Dx) Start: 07-18-2024 End: 07-18-2024 ambulatory VIBHA WOOD Facility:[facility] Start: 07-17-2024 End: 07-17-2024 Patient encounter procedure Sofia Cuadra PA -Cat Scan, [facility] Work Phone: Start: 07-17-2024 End: 07-17-2024 ambulatory Sofia Cuadra Facility:[facility] Start: 07-04-2024 End: 07-04-[address] Dayton Lewis MD -[facility] Work Phone: Start: 07-04-2024 End: 07-04-2024 ambulatory Dayton Lewis Facility:[facility] Start: 07-02-[address] Dayton Lewis MD -[facility] Start: 07-02-2024 End: 07-02-[address] Dayton Lewis MD -[facility] Work Phone: Start: 07-02-2024 End: 07-02-2024 ambulatory Sofia Cuadra Facility:[facility] Start: 06-26-2024 Non-patient / Non-visit Rivera Kirk nd DO -[facility] Start: 06-26-2024 End: 06-26-2024 Admission to same day surgery center Rivera Townsend DO -Endoscopy Work Phone: Start: 06-26-2024 End: 06-26-2024 ambulatory Rivera Townsend Facility:[facility] Start: 06-17-2024 End: 06-17-2024 Patient encounter procedure Sofia [facility] Work Phone: Start: 06-17-2024 End: 06-17-2024 ambulatory Sofia Cuadra Facility:[facility] Start: 04-30-2024 End: 04-30-[address] Antoni Slaughter MD -[facility] Work Phone: Start: 04-30-2024 End: 04-30-[address] Antoni Slaughter MD [facility] Start: 04-30-2024 End: 04-30-2024 ambulatory Antoni Slaughter Facility:[facility] Start: 11-01-[address] Antoni Slaughter MD Work Phone: [facility] Start: 08-25-2022 End: 08-25-[address] Antoni Slaughter Work Phone: [facility] Work Phone: Start: 08-25-2022 End: 08-25-[address] Antoni Slaughter Work Phone: [facility] Internal [facility] Start: 07-28-2022 End: 07-28-[address] Antoni Slaughter Work Phone: [facility] Work Phone: Start: 07-28-2022 End: 07-28-[address] Antoni Slaughter Work Phone: [facility] Start: 07-15-2021 End: 07-15-2021 ambulatory MORRO NELSON [facility] Start: 07-01-2021 End: 07-01-[address] [facility]ELGOZA [facility] Procedures Date Procedure Procedure Detail Performing Clinician Start: 01-14-[address] Consuelo Slaughter MD Work Phone: Start: 01-14-2025 Serum inorganic phosphate measurement Dr. Antoni Slaughter MD Work Phone: Start: 12-23-2024 CT of thorax, abdomen and pelvis with contrast Dr. Antoni Slaughter MD Work Phone: Start: 12-01-[address] Consuelo [...] the presence orabsence of malignant disease.Performed at: [address] Director: Osei Busch PhD, Phone: [phone] Start: 09-04-[address] Consuelo Slaughter MD Work Phone: Start: 09-04-2024 Total iron binding capacity measurement Dr. Antoni Slaughter MD Work Phone: Start: 08-07-2024 Antibody screen VIBHA FLORES Comment on above: Order Comment: Specimen Type: BLOOD SPEC IMENOrdering Facility: [facility] Address: [address] [place] [address] Performed By: #### T [id number] ####[facility] BLOOD BANKIA [id number] [place] [address] [place] Start: 08-04-2024 Measurement [...] the presence orabsence of malignant disease.Performed at: [address] [id number] Director: Osei Busch PhD, Phone: [phone] Start: 07-02-2024 Measurement of renal function Dr. Sunitha Slaughter MD Work Phone: Comment on above: GFR Calc Start: 06-26-[address] Antoni Slaughter MD Work Phone: Plan of Treatment Date Care Activity Detail Author Start: 2033 RSV Vaccine (1 - 1-d ose 75+ series) RSV Vaccine (1 - 1-dose 75+ series) [facility] Start: 08-16-2027 Diabetes Screening Diabetes Screenin g [facility] Start: 08-07-2027 Diabetes Screening Diabetes Screenin [facility] Start: 08-07-2025 BP Controlled (<130/80) BP Con trolled (<130/80) [facility] Start: 07-18-2025 BP Controlled (<130/80) BP Con trolled (<130/80) [facility] Start: 01-14-2025 Carcinoembryonic Ag [Mass/volume] in Serum or Plasma [facility] Start: 01-14-2025 [facility] Start: 12-23-2024 Venous catheter care management [facility] Start: 12-01-2024 [facility] Start: 12-01-2024 Vital signs measurements [facility] Start: 11-28-2024 End: 11-28-2024 Patient encounter procedure 11/28/2024 8:30 AM EDT Office Visit [facility] [address] [phone] Vibha Flores MD [address] [place] [address] 3 month follow up [facility] Comment on above: 3 month follow up Start: 11-17-2024 [facility] Start: 11-17-2024 Vital signs measurements [facility] Start: 11-04-2024 [facility] Start: 11-04-2024 Vital signs measurements [facility] Start: 10-20-2024 Vital signs measurements [facility] Start: 10-17-2024 End: 10-17-2024 Patient encounter procedure 10/17/2024 9:00 AM EDT Office Visit [facility] [address] [place] [address] Vibha Flores MD [address] [phone] Follow up 3 Months [facility] Comment on above: Follow up 3 Months Start: 10-06-2024 Vital signs measurements [facility] Start: 09-22-2024 Venous catheter care management [facility] Start: 09-22-2024 Vital signs measurements [facility] Start: 09-17-2024 Anesthesia access ce ntral venous circulation ANESTH VASCULAR ACCESS [facility] Start: 09-17-2024 Insj tunneled ctr va d w/subq port age 3 yr/> INSERT TUNNELED CV CATH [facility] Start: 09-17-2024 Patient discharge [facility] Start: 09-04-2024 Patient referral [facility] Work Phone: Start: 08-29-2024 End: 08-29-2024 Patient encounter procedure 08/29/2024 11:00 AM EDT Office Visit [facility] 1 [facility] [address] [place], [place] [phone] Vibha Flores MD [address] [place] [address] (Fax) post op [facility] Comment on above: post op Start: 08-14-2024 End: 08-14-2024 ambulatory 08/14/2024 11:00 AM EST Visit (SP) Office [facility] [address] [place], [place] [phone] Erik Sutherland MD [address] [place], [place] [phone] New pt ref from Vibha Flores for rectal cancer [facility] Comment on above: New pt ref from Barbara Flores for rectal cancer Start: 08-13-2024 End: 08-13-2024 Admission to same day surgery center 08/13/2024 1:15 PM EST - 08/13/2024 6:00 PM EST [facility] [address] [place] [address] Vibha Flores MD [address] [phone] (Fax) XI ROBOTIC LAPAROSCOPIC RESECTION COLON LOW ANTERIOR [...] EST Hospital Encounter [facility] [address] [place] [address] Vibha Flores MD [address] [place] [address] (Fax) Rectal cancer (HCC) [C20] [facility] Comment on above: Rectal cancer (HCC) [C20] Start: 08-07-2024 End: 08-07-2024 ambulatory 08/07/2024 1:40 PM EST PAT Pre Surgical Testing [address] [id number] XI ROBOTIC LAPAROSCOPIC RESECTION COLON LOW ANTERIOR W/ COLORECTAL ANASTOMOSIS/ POSSIBLE STOMA/ ERAS/ W BLOCK Pre Surgical Testing Comment on above: XI ROBOTIC LAPAROSCO PIC RESECTION COLON LOW ANTERIOR W/ COLORECTAL ANASTOMOSIS/ POSSIBLE STOMA/ ERAS/ W BLOCK Start: 06-26-2024 [facility] Start: 06-11-2024 Advance Directive Discussion Advance Directive Discussion [facility] Start: 04-30-2024 Patient referral [facility] Work Phone: Start: 02-10-2024 Covid-19 Vaccine ( season) Covid-19 Vaccine ( season) [facility] Start: 11-06-2023 Screening for osteoporosis Bone Dens ity Screening [facility] Start: 2018 RSV Vaccine (1 - Ris k 60-74 years 1-dose series) RSV Vaccine (1 - Risk 60-74 years 1-dose series) [facility] Start: 2008 Screening for malign ant neoplasm of lung Lung Cancer Screening [facility] Start: 2008 Shingrix Vaccine (1 of 2) Jo grix Vaccine (1 of 2) [facility] Start: 11-06-2003 Diabetes Screening Diabetes Screenin g [facility] Start: 11-06-2003 Lipid panel Lipid Screening [facility] Start: 11-06-2003 Screening for malign ant neoplasm of colon [facility] Start: 1998 Screening for malign ant neoplasm of breast Mammogram Screening [facility] Start: 11-06-1979 Screening for malign ant neoplasm of cervix Cervical Cancer Screening [facility] Start: 1977 Pneumococcal Vaccine : 50+ (1 of 2 - PCV) Pneumococcal Vaccine: 50+ (1 of 2 - PCV) [facility] Start: 1977 Urine microalbumin profile DTa P,Tdap,Td Vaccine (1 - Tdap) [facility] Start: 1976 Annual PCP Team Combination Worker rosalva Disease Visit Annual PCP Team Chronic Disease Visit [facility] Start: 1976 Anxiety Screening Anxiety Screening [facility] Start: 1976 BP Controlled (<130/80) BP Con trolled (<130/80) [facility] Start: 1976 Depression Screening Depression Scre syd [facility] Start: 1976 Hepatitis C screening Hepatitis C Sc denys [facility] Start: 1976 HIV screening HIV Screening [facility] Carcinoembryonic Ag [Mass/volume] in Serum or Plasma [facility] Carcinoembryonic Ag [Mass/volume] in Serum or Plasma [facility] CBC W Auto Different ial panel - Blood [facility] Comprehensive metabo lic 2000 panel - Serum or Plasma [facility] H&P for surgery H&P FOR SURGERY Procedures Routine Rectal cancer (HCC) Ordered: 08/01/2024 [facility] Work Phone: Comment on above: Ordered: 08/01/2024 Magnesium measurement [facility] MG Breast - bilatera l Screening [facility] Patient referral [facility] Work Phone: Serum inorganic phos phate measurement [facility] Thyroid stimulating hormone measurement [facility] Immunizations Immunization Date Immunization Notes Care Provider Fa [facility] 04-30-2024 Seasonal trivalent influenza vaccine, adjuvanted, preservative free Dr. Antoni Slaughter MD Work Phone: [facility] Payers Date Payer Category Payer Medicare AETNA MEDICARE A ETNA MEDICARE O [id number] 2024-Present [phone] [address] [place] [address] [facility] [id number] 2024 Medicare (Managed Care) [employer] [place] [id number] 2024 Self-pay [id number] 2023 Private Health Insurance [id number] 1960 Unknown [id number] 2.16840.1.890464.3.579.2. 651 1958 Unknown [id number] 2.840.1.085799.3.579.2. 651 Unknown [id number] Unknown [facility] [id number] Unknown [id number] 2.16.840.1.093414.3.579.2. 462 Unknown [id number] 2.840.1.376847.3.579.2. 462 Unknown [id number] 2.16840.1.404801.3.579.2. 462 Unknown [id number] 2.16840.1.671560.3.579.2. 462 Unknown [id number] 2.840.1.880960.3.579.2. 462 Unknown [id number] 2.16840.1.968257.3.579.2. 462 Unknown [id number] 2.16840.1.934941.3.579.2. 462 Unknown [id number] 2.16.840.1.001773.3.579.2. 462 Unknown [id number] 2.16840.1.377527.3.579.2. 462 Unknown [id number] 2.16840.1.590735.3.579.2. 462 Unknown [id number] 2.16.840.1.411116.3.579.2. 462 Unknown [id number] 2.16.840.1.076997.3.579.2. 462 Unknown [id number] 2.16.840.1.690312.3.579.2. 462 Unknown [id number] 2.16.840.1.413793.3.579.2. 462 Unknown [id number] 2.16.840.1.048131.3.579.2. 462 Unknown [id number] 2.16.840.1.108417.3.579.2. 462 Unknown [id number] 2.16.840.1.823964.3.579.2. 462 Unknown [id number] 2.16.840.1.324212.3.579.2. 462 Unknown [id number] 2.16.840.1.705226.3.579.2. 462 Unknown [id number] 2.16.840.1.336204.3.579.2. 462 Unknown [id number] 2.16.840.1.742120.3.579.2. 462 Unknown [id number] 2.16.840.1.660980.3.579.2. 462 Unknown [id number] 2.16.840.1.639524.3.579.2. 462 Unknown [id number] 2.16.840.1.515670.3.579.2. 462 Unknown [id number] 2.16.840.1.946421.3.579.2. 462 Unknown [id number] 2.16.840.1.269896.3.579.2. 462 Unknown [id number] 2.16840.1.722570.3.579.2. 462 Unknown [id number] 2.16.840.1.854480.3.579.2. 462 Social History Date Type Detail Facility Start: 07-28-2022 End: 08-25-2022 Tobacco smoking status ARIS Unknown if ever smoked [facility] Start: 1960 Sex Assigned At Female [facility] Start: 07-18-2024 End: 09-11-2024 Tobacco smoking status NHIS Smokes tobacco daily [facility] Start: 06-11-1974 History of tobacco use Cigarette Smo ker [facility] Start: 07-18-2024 End: 08-01-2024 Tobacco use and exposure User of smokeless tobacco [facility] Start: 07-18-2024 End: 08-01-2024 History of [address] [facility] Start: 07-18-2024 End: 08-01-[address] [facility] National Score (1-10 0), lower number is lower risk 72 [facility] Start: 1960 Sex assigned at Not on file [facility] Start: 08-07-2024 Tobacco use and exposure Smokeless tobacco non-user [facility] Start: 08-07-2024 End: 08-29-2024 Alcoholic beverage intake Current drinker of alcohol (finding) [facility] Start: 08-07-2024 Tobacco Comment Currently smok ing 3/[address] [facility] Start: 08-06-2024 Alcohol Comment very rarely [facility] Has the Roomer [employer], [employer], [employer], or water company threatened to shut off services in your home in past 12Mo No [facility] (I/We) worried jeanette er (my/our) food would run out before (I/we) got money to buy more. Never true [facility] Start: 08-14-2024 End: 09-17-2024 Sex Female (finding) [facility] Medical Equipment Procedure Code Equipment Code Equipment Origin al Text Equipment Identifier Dates Insertion, vascular access port ([id number]) Vascular port/catheter [id number] FDA Start: 09-17-2024 Goals Date Patient Goal Desired Activity /State Functional Status Date Assessment Result Facility 08-15-2024 Are you deaf, or do you have serious difficulty hearing No 08/15/2024 12:22 PM Lisa Lord RN No [facility] 08-15-2024 Are you blind, or do you have serious difficulty seeing, even when wearing glasses No 08/15/2024 12:22 PM Lisa Lord, CELESTE No [facility] 08-15-2024 Do you have serious difficulty walking or climbing stairs No 08/15/2024 12:22 PM Lisa Lord, CELESTE No [facility] 08-15-2024 Do you have difficul ty dressing or bathing No 08/15/2024 12:22 PM Lisa Lord, CELESTE No [facility] 08-15-2024 Because of a physica l, mental, or emotional condition, do you have difficulty doing errands alone such as visiting a physician's office or shopping No 08/15/2024 12:22 PM Lisa Lord, CELESTE No [facility] Mental Status Date Assessment Result Facility 09-17-2024 Cognitive function Voice/Name [facility] Work Phone: 08-15-2024 Because of a physica l, mental, or emotional condition, do you have serious difficulty concentrating, remembering, or making decisions No 08/15/2024 12:22 PM Lisa Lord RN No [facility] 06-26-2024 Cognitive function Level Of Cons ciousness Sedated [facility] Work Phone: 06-26-2024 Cognitive function Voice/Name [facility] Work Phone: Clinical Notes 04-30-2024 to 01-14-2025 Note Date & Type Note Facility 01-14-2025 Progress note [facility] 01-14-2025 Progress note Note Date/Time January 14, 2025 1:40pm [facility] [address] [place] [id number] OFFICE VISIT Date of Service: 01/14/25 1303 MR#: [id number] Acct: [id number] Name: TRUDY CALLE Rep #: [id number] : 1960 From: Antoni patricio MD Age/Sex: 64/F Location: [facility] Status: Signed HPI Subjective Date of Service 01/14/25 Chief Complaint Colon cancer History of Present [...] Strictly speaking TNM staging, such as the [place] Joint Committee on Cancer (AJCC) 8th edition, [...] 2024 was evaluated by colorectal surgery at [facility] Dr. Elizabeth who felt that the patient's cancer is more anatomically located in the sigmoid rather than the rectum. August 13, 2024 patient underwent robotic assisted low anterior resection: Pathology: Rectosigmoid, moderately differentiated adenocarcinoma invading through the muscularis propria into the pericolonic perirectal tissue, 3 out of 12 lymph nodes positive for carcinoma, all margins negative for carcinoma, pathologic T3 N1b. December 23, 2024 chest abdomen and pelvis CT end of treatment: IMPRESSION: 1. No evidence of metastatic disease. 2. The distal colonic anastomosis is unremarkable. Treatment summary and response: August 13, 2024 robotic assisted low anterior resection. Adjuvant modified FOLFOX September 22,?December 01 2024 (3 months) PFSH Medical History Actinic keratosis Encounter for [...] reviewed and no addt'l complaints, except as documented; Denies fatigue, fever(s) or weight loss Eyes Eyes: Reports systems reviewed and no addt'l complaints, except as documented ENT HEENT: Reports systems reviewed and no addt'l complaints, except as documented; Denies mouth lesions Cardiovascular Cardiovascular: Reports systems reviewed and no addt'l complaints, except as documented; Denies chest pain with activity or edema Respiratory/Chest Respiratory/Chest: Reports systems reviewed and no addt'l complaints, except as documented; Denies cough or dyspnea Gastrointestinal Gastrointestinal: Reports systems reviewed and no addt'l complaints, except as documented, change in bowel habits and constipation; Denies abdominal pain, hematochezia or melena Genitourinary Genitourinary: Reports systems reviewed and no addt'l complaints, except as documented Musculoskeletal Musculoskeletal: Reports systems reviewed and no addt'l complaints, except as documented; Denies back pain Integumentary Integumentary: Reports systems reviewed and no addt'l complaints, except as documented, rash and other Details: Itchy rash over the upper extremities, responsive to moisturizing and OTC hydrocortisone. Neurologic Neurologic: Reports systems reviewed and no addt'l complaints, except as documented; Denies focal weakness or paresthesias Psychiatric Psychiatric: Reports systems reviewed and no addt'l complaints, except as documented Endocrine Endocrinology: Reports systems reviewed and no addt'l complaints, except as documented Hematologic/Lymphatic Hematologic/Lymphatic: Reports systems reviewed and no addt'l complaints, exceptas documented Intake Vital Signs 12/01/24 10:02 01/14/25 13:04 01/14/25 13:09 Height 5 ft 7 in 5 ft 7 in 5 ft 7 in Weight: 93.497 kg BMI 32.3 BP 120/78 Blood Pressure Location Lt brachial Position Sitting Respiration 18 Pulse 83 Pulse Source Monitor Temp 98.5 F Temperature Source Temporal Artery Pulse Oximetry (%) 96 Oxygen Delivery Method room air Intake Is patient in pain?: No Allergies oxaliplatin Adverse Reaction (Severe, Verified 01/14/25 13:08) Chest tightness Medications ?Medication ?Instructions ?Recorded ?Confirmed ?Type atorvastatin 40 mg tablet 40 mg PO DAILY #90 tabs 07/1301/14/25 Rx potassium iodide 65 mg tablet 130 mg PO QDAY PRN pain 09/08/24 01/14/25 History lidocaine-prilocaine 2.5 %-2.5 % 1 applic topical ONCE PRN port 09/09/24 01/14/25 Rx topical cream access 30 days #30 grams ondansetron 8 mg disintegrating 8 mg PO Q8H PRN nausea and 09/09/24 01/14/25 Rx tablet vomiting #30 tabs prochlorperazine maleate 10 mg 10 mg PO Q6H PRN nausea and 09/09/24 01/14/25 Rx tablet vomiting #30 tabs carvedilol 6.25 mg tablet 6.25 mg PO DAILY #90 tabs 01/14/25 Rx levothyroxine 150 mcg tablet 150 mcg PO DAILY #120 tab s 11/05/24 01/14/25 Rx clopidogrel 75 mg tablet 75 mg PO DAILY #90 tabs 12/0901/14/25 Rx hydrochlorothiazide 25 mg tablet 25 mg PO QAM #90 tabs 12/22/24 01/14/25 Rx losartan 100 mg tablet 100 mg PO DAILY #90 tabs 01/14/25 Rx Have you fallen in the past year?: No Central Venous Access Central Venous Access: Yes Port/PICC: Port Laboratory Tests 07/02/24 09/04/24 09/22/24 10:50 14:41 08:50 Carcinoembryonic Ag 11.3 H 5.6 H 3.8 Exam Physical Exam Narrative ECOG 0-1, strong smell of cigarette smoke Const alert, oriented x3 and no apparent distress General Appearance: cooperative and comfortable Coding Level of Care Code Off vis,est,level 4 Exam Problem Focused Diagnoses Colorectal cancer C19 Regional lymph node metastasis present C77.9 Assessment and Plan Assessment and Plan (1) Colorectal cancer: Status: Chronic (2) Regional lymph node metastasis present: Status: Acute Plan 64-year-old female with stage III (T3, N1, 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 Patient is status post low anterior resection August [address] Elizabeth at [facility]. Patient is a low risk stage III disease. Received 3 months systemic adjuvant chemotherapy with modified FOLFOX September?November,, tolerated with no grade 3 or 4 toxicities. End of treatment imaging by CT showed no evidence for metastatic disease and her CEA normalized early in thecourse of adjuvant treatment. Chronic comorbid conditions: Smoker, hypertension, dyslipidemia, hypothyroidism on replacement. Recommendations: Based on NCCN guidelines and up-to-date review of treatment of low risk stage III colon cancer status post resection: 1. Concluded systemic adjuvant chemotherapy with FOLFOX 3 months . 2. Patient will go on surveillance with H&P and CEA monitoring every 3 months for the first 2 years of follow-up and then less frequently afterwards. 3. Mild anemia with no evidence for residual iron deficiency. 4. Colonoscopy at the anniversary of her surgery. 5. She will be referred to lung cancer screening as of December 2025. 6. Screening mammography to schedule, never had one before. Patient was seen with her daughter, impression and plan discussed Antoni Leach MD Hospital Director, [facility] Divisions of Medical Oncology & Hematology Department of Internal Medicine [facility] [address] [address] This note was generated using a voice recognition system software. Although itwas reviewed by the author prior to finalization, it may still contain incorrectwords, spelling, and punctuation that were not noted when reviewing prior to saving. If a clinically significant typo or inaccurately typed phrase is noted, please notify the author. Clinical Quality Measures Falls Risk Screening/Assistive Devices Have you fallen in the past year?: No 01/14/25 1340 <Electronically signed by Antoni sinha MD> Date _ Antoni Leach MD Cosigner Signature: Date (if applicable) CC: Dr. Antoni Slaughter MD; Rivera Townsend, ~ [facility] Work Phone: [phone]) 196-613907-16-2025 Radiology Diagnostic study note [facility] Imaging Services [address] [place], [place] [id number] CT Chest, Abd, Pel w/Contrast MR#: [id number] Acct: [id number] Name: TRUDY CALLE Rep #: [id number] : 1960 F 64 From: Brady Prakash MD PCP: Dr. Antoni Slaughter MD Status: R EG CLI Study:CT Chest, Abd, Pel w/Contrast Date of E xam: 12/23/24 Exam# [id number] Ordering Dr: Antoni Leach MD PROCEDURE: CT CHEST, ABD, PEL W/CONTRAST 12/23/2024 REASON FOR EXAM: RESTAGING OF COLON CANCER TECHNIQUE: Chest, abdomen and pelvis CT with intravenous contrast. Coronal and Sagittal reconstruction series were provided. One or more dose reduction techniques were used (e.g., Automated exposure control, adjustment of the mA and/or kV according to patient size, use of iterative reconstruction technique. PATIENT PREPARATION: Per protocol ORAL CONTRAST: Yes CONTRAST: Isovue-300 VOLUME: 98 mL RADIATION DOSE SUMMARY: CTDlvol: 64.25 mGy DLP: 1533.41 mGycm COMPARISON: CT chest abdomen and pelvis with contrast, 07/17/2024 FINDINGS: CT CHEST: Neck base: The thyroid gland is diminutive or may be surgically absent. There is no supraclavicularlymphadenopathy. Mediastinum: No abnormal masses or lymphadenopathy. Heart and Vasculature: The heart is enlarged. There is no pericardial effusion. There is mild calcific vascular disease of the coronary arteries and thoracic aorta. Airways, lungs and pleura: There are apical pulmonary blebs bilaterally. There is pleural-parenchymal scarring in the anterior medial basal segment of the lower lobe, in the inferior lingular segments of theleft lung. There are no pulmonary nodules or masses. Chest wall: There is a chemotherapy port in the right upper chest wall with the tip in the superiorvena cava via the right internal jugular vein. There is no axillary lymphadenopathy. There is mild multilevel degenerative disc disease of the mid and lower thoracic spine. There is mild dextroscoliosis of the upper thoracic spineand levoscoliosis ofthe lower thoracic spine. CT ABDOMEN/PELVIS: Liver: There is a 3 mm cyst in the posterior segment of the right hepatic lobe. Gallbladder: There is a 19 mm gallstone. Spleen: Normal. Pancreas: Normal. Adrenals: Normal. Kidneys: Normal. Bladder: Normal unenhanced appearance. Reproductive Organs: The uterus is surgically absent. The ovaries are normal. There is no free fluid in the pelvis. There is no inguinal lymphadenopathy. Bowel: There is a staple line at the sigmoid rectal junction. The anastomosis is unremarkable. The gastrointestinal tract is otherwise unremarkable. Appendix: Normal. Lymph nodes: There is no mesenteric, retroperitoneal or pelvic lymphadenopathy. Vasculature: There is calcific vascular disease of the abdominal aorta. There is ectasia of the infrarenal abdominal aorta without aneurysm. The inferior vena cava and portal venous system are normal. Peritoneum / Retroperitoneum/abdominal wall: There are no abnormal intra or retroperitoneal masses or fluid collections. Bones: There is multilevel degenerative disc disease of the lumbar spine most severe at the L3-4 and L4-5 levels. There is dextroscoliosis of the lumbar spine. CT/CT Chest, Abd, Pel w/Contrast IMPRESSION: 1. No evidence of metastatic disease. 2. The distal colonic anastomosis is unremarkable. 3. Cholelithiasis. 4. Cardiomegaly. 5. Other findings as noted. There is no significant change. Reading Location: [place] [address] CC: Dr. Antoni Slaughter MD; Dr. Antoni Leach MD ~ Crown Attacher: Signed [facility] Work Phone: 1(855) 228-640706-09-2025 [facility] [address] [place] [address] OFFICE VISIT Date of Service: 11/17/24 0903 MR#: [id number] Acct: [id number] Name: TRUDY CALLE Rep #: [id number] : 1960 From: Ceci Montanez ch PLANT PHYSIOLOGY TEACHER PLANT PHYSIOLOGY TEACHER-C Age/Sex: 64/F Location: [facility] Status: Signed HPI Subjective Date [...] Strictly speaking TNM staging, such as the [place] Joint Committee on Cancer (AJCC) 8th edition, [...] 2024 was evaluated by colorectal surgery at [facility] Dr. Holden felt that the patient's [...] infusion reaction during cycle 2 afteroxaliplatin, thus seneca omitted with cycle 3 and subsequent) Interval [...] sweats, edith sores, dizziness, headache, CP, palpitations, cough,SOB, abd pain, N/V, constipation, diarrhea, swelling of herextremities, numbness/tingling. PFSH Medical History Actinic keratosis Encounter for [...] resection August [address] Elizabeth at [facility]. Patient is a low risk [...] in the past year?: No 11/17/24 1000 h PLANT PHYSIOLOGY TEACHER PLANT PHYSIOLOGY TEACHER-C> Date _ Ceci Emilee PLANT PHYSIOLOGY TEACHER PLANT PHYSIOLOGY TEACHER-C Cosigner Signature: Date (if applicable) CC: ~ [facility]06-09-2025 Progress note Author Ceci Hebert [facility] Note Date/Time November 17, 2024 10:00 am [facility] [place] [address] OFFICE VISIT Date of Service: 11/17/24 0903 MR#: [id number] Acct: [id number] Name: TRUDY CALLE Rep #: [id number] : 1960 From: Ceci Montanez ch, NP PLANT PHYSIOLOGY TEACHER-C Age/Sex: 64/F Location: [facility] Status: Signed HPI Subjective Date [...] Strictly speaking TNM staging, such as the [place] Joint Committee on Cancer (AJCC) 8th edition, [...] 2024 was evaluated by colorectal surgery at [facility] Dr. Elizabeth who felt that the [...] reaction during cycle 2 after oxaliplatin, thus seneca omitted with cycle 3 and subsequent) Interval [...] N/V, constipation, diarrhea, swelling of herextremities, numbness/tingling. [facility] Medical History Actinic keratosis Encounter for chemotherapy [...] resection August [address] Elizabeth at [facility]. Patient is a low risk [...] No 11/17/24 1000 <Electronically signed by Ceci hardy NP, NP-C> Date _ Ceci Hebert NP, NP-C Cosigner Signature: Date (if applicable) CC: ~ [facility] Work Phone: [phone]) 652-191205-27-2025 [facility] [place] [address] OFFICE VISIT Date of Service: 11/04/24 0943 MR#: [id number] Acct: [id number] Name: TRUDY CALLE Rep #: [id number] : 1960 From: Ceci Montanez ch PLANT PHYSIOLOGY TEACHER PLANT PHYSIOLOGY TEACHER-C Age/Sex: 63/F Location: [facility] Status: Signed HPI Subjective Date [...] Strictly speaking TNM staging, such as the [place] Joint Committee on Cancer (AJCC) 8th edition, [...] 2024 was evaluated by colorectal surgery at [facility] Dr. Holden felt that the patient's [...] infusion reaction during cycle 2 afteroxaliplatin, thus seneca omitted with cycle 3 and subsequent) Interval [...] LBM earlier this am, rarely requires Miralax. [facility] Medical History (Updated 11/04/24 @ 10:24 by Ceci Hebert NP, PLANT PHYSIOLOGY TEACHER-C) Actinic keratosis Encounter for chemotherapy management CINV [...] resection August [address] Elizabeth at [facility]. Patient is a low risk [...] the past year?: No 11/04/24 1024 h PLANT PHYSIOLOGY TEACHER PLANT PHYSIOLOGY TEACHER-C> Date _ Ceci Hebert PLANT PHYSIOLOGY TEACHER PLANT PHYSIOLOGY TEACHER-C Cosigner Signature: Date (if applicable) CC: ~ [facility]05-27-2025 Progress note Author Ceci Hebert [facility] Note Date/Time November 04, 2024 10:24 am [facility] [place] [address] OFFICE VISIT Date of Service: 11/04/24 0943 MR#: [id number] Acct: [id number] Name: TRUDY CALLE Rep #: [id number] : 1960 From: Ceci Montanez pito PLANT PHYSIOLOGY TEACHER PLANT PHYSIOLOGY TEACHER-C Age/Sex: 63/F Location: [facility] Status: Signed HPI Subjective Date [...] Strictly speaking TNM staging, such as the [place] Joint Committee on Cancer (AJCC) 8th edition, [...] 2024 was evaluated by colorectal surgery at [facility] Dr. Elizabeth who felt that the [...] reaction during cycle 2 after oxaliplatin, thus seneca omitted with cycle 3 and subsequent) Interval [...] LBM earlier this am, rarely requires Miralax. [facility] Medical History (Updated 11/04/24 @ 10:24 by Ceci Hebert PLANT PHYSIOLOGY TEACHER, PLANT PHYSIOLOGY TEACHER-C) Actinic keratosis Encounter for chemotherapy management CINV [...] resection August [address] Elizabeth at [facility]. Patient is a low risk [...] No 11/04/24 1024 <Electronically signed by Ceci hardy NP PLANT PHYSIOLOGY TEACHER-C> Date _ Ceci Hebert NP PLANT PHYSIOLOGY TEACHER-C Cosigner Signature: Date (if applicable) CC: ~ [facility] [employer] [facility] Work Phone: 1(518) 788-826604-14-2025 Evaluation note* Diagnosis Onset Date Resolution Status Admit Date Regional lymph node metastas is present acute [...] 8:36am Colorectal cancer chronic December 012024 8:36am Regional lymph node metastas is present acute January 14, 2025 12:18pm Colorectal cancer chronic January 14, 2025 12:18pm [facility] Work Phone: [phone]) 577-853204-09-2025 Radiology Diagnostic study note [facility] Imaging Services [address] [place] [id number] CXR for Line Placement MR#: [id number] Acct: [id number] Name: TRUDY CALLE Rep #: [id number] : 1960 F 63 From: Yvette Taveras MD PCP: Dr. Antoni Slaughter MD Status: R [facility] Study:CXR for Line Placement Date of Exam: 09/17/24 Exam# [id number] Ordering Dr: Humberto Riley MD EXAM: AP [...] Port-A-Cath. No active cardiopulmonary disease. Reading Location: [place] [address] CC: Dr. Humberto Leigh MD; Dr. Antoni Slaughter MD ~ Crown Attacher: Signed [facility]04-09-2025 Consult note Author Kolton Ness [facility] Note Date/Time September 17, 2024 7:57 am [facility] Medical Records Department [address] [place] [place] [address] Pre-Anesthesia Evaluation 09/17/24 0757 MR#: [id number] Acct: [id number] Name: TRUDY CALLE Rep #:[id number] : 1960 63 From: Kolton Ness MD PCP: Dr. Antoni Slaughter MD Status:R 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 Hx Hospitalization No 09/11/24 08:24 Any Problems [...] take am of surgery PONV PONV - burning machine operator: PONV - burning machine operator Female Yes 09/11/24 08:24 HX of Motion [...] 09/17/24 07:48 Respiratory Assessment Respiratory Assessment - burning machine operator: Respiratory Tract Infection Hx - burning machine operator Hx Respiratory Tract Infection No 09/11/24 08:24 STOP Sleep Apnea STOP Sleep Apnea - burning machine operator: STOP Sleep Apnea - burning machine operator Hx Hypertension Yes: COTNROLLED WITH MED 09/11/24 [...] Tobacco Use History Tobacco Use History - burning machine operator: Tobacco Use History - burning machine operator Tobacco Use Smoking Status Current every day smoker 09/11/24 08:24 Hx Tobacco Use Yes 09/11/24 08:24 Years Smoking Packs Smoked per Day Smoking Cessation Date was within the last 15 years Hx Smoking Cessation Date Hx Smoking Cessation Counseling Hematologic Medial History Hematologic Hx - burning machine operator: Hematologic 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 Hx of Blood Transfusion No 09/11/24 08:24 [...] confused, unrespo /Reproduction History /Reproductive History - burning machine operator: /Reproductive Hx- burning machine operator Hx Now Gestational Age (in weeks): EDC: Hx Hx Para Hx Section SAB Active Medications Active Medications: Current Medications Generic Name Dose Route Start Last Admin Trade Name Freq PRN Reason Stop Dose Admin Cefazolin Sodium 2 gm/ N/A 20 mls @ 400 mls/hr 09/17/24 09:00 IV 09/17/24 09:02 PREOP ONE [facility] Medical History Encounter for education Regional lymph [...] no additional complaints, except as documented. 09/17/24 3152 <Electronically signed by Kolton Ness MD > Date _ Kolton Ness MD Cosigner Signature: Date CC: ~ Signed [facility] Work Phone: [phone]) 775-282804-09-2025 Consult note [facility] Medical Records Department [address] [place] [address] Anesthesia Postop Eval I 09/17/24 0943 MR#: [id number] Acct: [id number] Name: TRUDY CALLE Rep #:[id number] : 1960 63 From: Tristin Phipps CRNA PCP: Dr. Antoni Slaughter MD Status:R EG SDC Y Race: C Location: [place] [address] Anesthesia: Postop Eval I Current Vital Signs [...] Anesthesia document: Postop Eval 1 completed: Yes 09/17/2444 y POTATO CHIP PACKAGING MACHINE OPERATOR> Date _ Tristin Phipps POTATO CHIP PACKAGING MACHINE OPERATOR Cosigner Signature: Date CC: ~ Signed [facility]04-09-2025 Discharge summary [facility] Medical Records Department [address] [place] [address] Instructions for Home/Discharge Instructions 09/17/24937 MR#: [id number] Acct: [id number] Name: TRUDY CALLE Rep #:[id number] : 1960 63 From: Humberto garner MD PCP: Dr. Antoni Slaughter MD Status:R [facility] Discharge Instructions Procedure Port-A-Cath Diet Discharge Diet: [...] With: Humberto Leigh MD When: as needed [phone] Test Results: Test results from this visit will be discussed in further detail at your follow- up appointment, if applicable. Discharge Plan Admission Attending Provider: Humberto Leigh Primary Care Provider: Antoni Slaughter Instructions Print Language: [place] Citizen Discharge Orders/Prescriptions Prescriptions: No Action losartan 100 [...] Order can be placed): Home, Self Care 09/17/2438Humberto Leigh MD CC: Dr. Antoni Slaughter MD ~ Signed [facility]04-09-2025 Procedure note [facility] Medical Records Department [address] [place] [address] Operative Report 09/17/2437 MR#: [id number] Acct: [id number] Name: TRUDY CALLE Rep #:[id number] : 1960 63 From: Humberto garner MD PCP: Dr. Antoni Slaughter MD Status:R [facility] Location: [place] [address] Operative Report (Standard) Operative Information Date of Procedure: 09/17/24 Pre-Operative Diagnosis: Need for vascular access for chemotherapy Post-Operative Diagnosis: Same Surgery/Procedure Performed: Ultrasound and fluoroscopy guided right chest port placement utilizingright IJ mechanical supervisor: No Type of Anesthesia: Local MAC RN Documented Start/Stop Times: Operation Date: 09/17/24 09:00 Case Time Into Pre-Op 09/17/24 07:30 Anesthesia Start 09/17/24 09:00 Into Room 09/17/24 09:00 Procedure Start 09/17/24 09:14 Procedure End 09/17/24 09:31 Anesthesia End 09/17/24 09:36 Out of Room 09/17/24 09:36 Procedure Start Time: :14 Procedure Stop Time: :31 Select all DRAINS/GRAFTS/IMPLANTS that apply: Implanted device Implanted device details: 8 [employer] PowerPort Estimated Blood Loss: 5 Specimen collected: [...] x-ray will be obtained. Surgical Findings: 8 [place] PowerPort Complications Complications: No Admit VTE Documentation VTE Mechan Device Prophylaxis: SCD's 09/17/24 09 Cosigner Signature (if applicable): CC: Dr. Humberto Leigh MD; Dr. Antoni Slaughter MD~ Signed [facility]04-09-[address] [facility] Medical Records Department [address] [place] [address] History & Physical Exam 09/17/24 0834 MR#: [id number] Acct: [id number] Name: TRUDY CALLE Rep #:[id number] : 1960 63 From: Humberto garner MD PCP: Dr. Antoni Slaughter MD Status:[facility] Location: [place] [address] History and Physical Date of Admission: 09/17/24 [...] Acute 09/08/24917 Date Humberto Leigh MD cc: ~* Signed [...] Reasons: PORT PLACEMENT Chief Complaint: port placement Cost Report Clerk Required: No Is patient in pain?: No [...] for 5 days. Humberto Leigh MD Pager: [facility] [address] [place] [address], [address] [place] [address] Office: I have seen and examined the patient and reviewed the H&P. THere are no clinicalchanges. 09/17/24 0835 Cosigner Signature (if applicable): CC: Dr. Humberto Leigh MD; Dr. Antoni Slaughter MD~ Signed [facility]04-09-2025 [facility]04-09-2025 Consult note [facility] Medical Records Department [address] [place] [address] Pre-Anesthesia Evaluation 09/17/24 0757 MR#: [id number] Acct: [id number] Name: TRUDY CALLE Rep #:[id number] : 1960 63 From: Kolton Ness MD PCP: Dr. 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 Hx Hospitalization No 09/11/24 08:24 Any Problems [...] take am of surgery PONV PONV - burning machine operator: PONV - burning machine operator Female Yes 09/11/24 08:24 HX of Motion [...] 09/17/24 07:48 Respiratory Assessment Respiratory Assessment - burning machine operator: Respiratory Tract Infection Hx - burning machine operator Hx Respiratory Tract Infection No 09/11/24 08:24 STOP Sleep Apnea STOP Sleep Apnea - burning machine operator: STOP Sleep Apnea - burning machine operator Hx Hypertension Yes: COTNROLLED WITH MED 09/11/24 [...] Tobacco Use History Tobacco Use History - burning machine operator: Tobacco Use History - burning machine operator Tobacco Use Smoking Status Current every day smoker 09/11/24 08:24 Hx Tobacco Use Yes 09/11/24 08:24 Years Smoking Packs Smoked per Day Smoking Cessation Date was within the last 15 years Hx Smoking Cessation Date Hx Smoking Cessation Counseling Hematologic Medial History Hematologic Hx - burning machine operator: 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 Hx of Blood Transfusion No 09/11/24 08:24 [...] confused, unrespo /Reproduction History /Reproductive History - burning machine operator: /Reproductive Hx- burning machine operator Hx Now Gestational Age (in weeks): EDC: Hx Hx Para Hx Section SAB Active Medications Active Medications: Current Medications Generic Name Dose Route Start Last Admin Trade Name Freq PRN Reason Stop Dose Admin Cefazolin Sodium 2 gm/ N/A 20 mls @ 400 mls/hr 09/17/24 09:00 IV 09/17/24 09:02 PREOP ONE PFS Medical History Encounter for education Regional lymph [...] MD Cosigner Signature: Date CC: ~ Signed [facility]04-04-2025 Telephone encounter Note* Telephone Encounter - Luis F Hurtado RN - 09/12/2024 1:39 PM EDT KELSEY ADMINISTRATIVE SUPPORT SPECIALIST ONE MONTH FOLLOW UP PHONE CALL PHONE [...] RN DATE: 09/12/2024 TIME: 1:39 PM CONTACT #:[phone] [facility]04-04-2025 Miscellaneous Notes* Telephone Encounter - Luis F Hurtado RN - 09/12/2024 1:39 PM EDT KELSEY JEONGADMINISTRATIVE SUPPORT SPECIALIST ONE MONTH FOLLOW UP PHONE CALL PHONE [...] RN DATE: 09/12/2024 TIME: 1:39 PM CONTACT #:[phone] documented in this encounterSt. [facility] Evaluation note* Diagnosis Onset Date Resolution Status Admit Date Regional lymph node metastas is present acute [...] 8:36am Colorectal cancer chronic December 012024 8:36am [facility] Work Phone: 1(497) 190-530603-21-2025 NoteHNO ID: [id number] Author: VIBHA FLORES MD Service: ? Author Type: Physician Type: Progress Notes Filed: 08/29/2024 13:02 Note Text: Vibha Flores M.D. Colon AND Rectal Surgery [address] 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 Vibha Flores M.D. Colon & Rectal Surgery [address] [facility], [address] [place] [phone] CC: rectosigmoid cancer HPI: Trudy Calle is [...] This office note has been created using [employer], a speech recognition software program, and may contain errors including punctuation, grammar, spelling, gender, and inappropriate words or phrases that pertain to the sytem. documented in this encounterSt. 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 This document will become part of the patient's medical record.[facility]03-07-2025 NoteHNO ID: [id number] Author: GAYLE FOUNTAIN LSW Service: Care Management Author Type: Technical Delivery Manager Type: Care Mgt Progress Note Filed: 08/15/2024 09:35 Note Text: CARE MANAGEMENT PROGRESS NOTE SERVICE DATE: 08/15/2024 SERVICE TIME: 9:35 AM LOS: 2 days IMM Follow Up Copy Given: Yes Copy given to:: Patient Method: In Person Verbal confirmation SIGNATURE: DINA Crane PATIENT NAME: Trudy Calle DATE: August 15, 2024 TIME: 9:35 AMNorthern [facility]03-07-2025 NoteHNO ID: [id number] Author: GAYLE FOUNTAIN LSW Service: Care Management Author Type: Technical Delivery Manager Type: Care Mgt Initial Assessment Filed: 08/15/2024 09:35 Note Text: CARE MANAGEMENT: ASSESSMENT AND DISCHARGE PLAN SERVICE DATE: August 15, 2024 SERVICE TIME: 9:30 AM PCP: Antoni Slaughter MD Primary Contact: Extended Emergency Contact Information Primary Emergency Contact: Chiquita Encinas Mobile Relation: Sister Secondary Emergency Contact: Xuan Calle Address: [address] [place] Mobile Relation: Daughter Admission Status: Inpatient Insurance Provider: [employer] MEDICARE O Discharge Planning requested by: Per Department Practice Potential Transition Plans Home Advance Directives Current Advance Directive: None Nail Maker Attempted to Assist with AD Completion: Yes [...] Be able to go home, General wellness [place] of Choice Explained: [place] of Choice Given: No Reason Not Given: [...] 9:30 [facility]03-07-2025 NoteHNO ID: [id number] Author: VIBHA FLORES MD Service: General Surgery [...] questions or concerns Mon-Fri 6a-5p please page [phone]. After 5pm and on Weekends and Holidays, please page [phone]. SUBJECTIVE: NAEON. Pt is POD2 for Robotic-assisted [...] Therapy: Room Air IANDO: Date 08/14/24699 - 08/15/2465808/15/24699 - 08/16/24 0659 Shift 1708-6394 8188-6920 3152-0033 24 Hour Total 6677-8947 9899-4921 7554-5988 24 Hour Total INTAKE PO 120 240 360 PO 120 240 360 Shift Total 120 240 360 OUTPUT Urine 300 051 543 1878 Void (ml) 150 453 349 8094 Urine Not Saved. 1 x 1 x Output ([REMOVED] Indwelling Urinary Catheter 08/13/24 1530 [place] 16 Fr 08/14/24 0901) 150 150 # of BMs Number of BMs 2 x 1 x 3 x Shift Total 300 131 149 0847 Weight (kg) 98 98 98 98 98 [...] mg ORAL BID Labs: Recent Labs 08/15/24 0625 0536 NA 138 136 K 3.8 3.8 [...] Discussed with attending: (more content not included)...[facility]03-06-2025 NoteHNO ID: [id number] Author: VIBHA FLORES MD Service: General Surgery [...] questions or concerns Mon-Fri 6a-5p please page [phone]. After 5pm and on Weekends and Holidays, please page [phone]. SUBJECTIVE: NAEON. Pt is POD1 for Robotic-assisted [...] Therapy: Room Air IANDO: Date 08/13/24699 - 08/14/24 0659 08/14/24 07 - 08/15/24 0659 Shift 8880-1404 8712-9016 7005-8200 24 Hour Total 8451-3046 7286-8603 4554-1429 24 Hour Total INTAKE IV 2160 2160 [...] bowel function - (more content not included)...[facility]03-05-2025 Note Ancillary testing for mismatch repair protein has been requested and will be reported when available. Engineering Manager Electronics slides were reviewed in consultation with Dr. Julian Carrera who concurs.[facility] CenterComment on above: Order Comment: Specimen Type: TISSUE SPECIMENOrdering Facility: [facility] Address: [address] [place], [place] [id number] By: #### [id number] ####[facility] [id number] [place] [address] [facility]03-05-2025 NoteHNO ID: [id number] Author: YULIANA OGLESBY APRN.CRNA Service: Nursing Author Type: Nurse Change Over Type: Anesthesia Procedure Notes Filed: 08/13/2024 15:46 Note Text: ANESTHESIOLOGY PROCEDURE NOTE Airway General Information Procedure Start Time/Medication Administration: 08/13/2024 3:13 PM Procedure End Time: 08/13/2024 3:13 PM Patient location during procedure: OR Timeout Performed Pre-procedure: timeout performed Consent Obtained: Yes Patient identity confirmed: arm band Staffing POTATO CHIP PACKAGING MACHINE OPERATOR: Yuliana Oglesby APRN.POTATO CHIP PACKAGING MACHINE OPERATOR Performed by: NAKITA Indications and Patient Condition [...] attempts at approach: 1 SIGNATURE: Yuliana Oglesby APRN.POTATO CHIP PACKAGING MACHINE OPERATOR PATIENT NAME: Trudy Calle DATE: August 13, 2024 TIME: 3:46 PM CSN: [id number] Maine Medical Center03-05-2025 NoteHNO ID: [id number] Author: MERLIN ESQUIVEL MD Service: Anesthesiology Author [...] August 13, 2024 TIME: 3:26 PM CSN: [id number] Maine Medical Center02-27-2025 NoteHNO ID: [id number] Author: OSMEL MAYES APRN.GUT DROPPER Service: ? Author Type: Nurse Practitioner Type: [...] to surgery and avoid morning of surgeryNorthern [facility]02-27-2025 History of Present illness Narrative* Osmel Mayes APRN.CNP - 08/07/2024 3:02 PM EST CC AWILDA [...] avoid morning of surgery documented in this encounterSt. Rita'[facility]02-27-2025 Instructions* Patient Instructions* Osmel Mayes APRN.CNP - 08/07/2024 1:56 PM EST PATIENT PREOPERATIVE INSTRUCTIONS Vibha Flores MD has scheduled you for your procedure at this surgery center: [facility]: [phone], [address] [place] [phone] Please read below carefully for your personalized [...] - Stop Vitamin E, fish oil, Ginko, Carlito's Wort, flax seed oil, multivitamins, CBD oil, [...] Advance Directive, please fax a copy to [phone] or email to for it to be [...] surgery Osmel Mayes APRN.FLAKO documented in this encounterSt. Rita'S Hospital02-27-2025 History and physical note * Osmel [...] 11/06/2024 Hospital [facility] Planned Surgery or Procedure:: [facility] Status of surgery/procedure:: Scheduled Date of surgery/procedure:: [...] Negative for: dysuria, hematuria and renal failure. CLOTH FINISHING RANGE BACK TENDER: Negative for: vaginal bleeding. Endocrine: Positive for: [...] or any previous visit (from the past 07627 hours). The Following Tests/Procedures Have Been Initiated: No labs ordered per surgeon in epic CBC BMP T&S Con ABO ordered per WEB SITE DESIGNER Assessment/Plan Diagnosis: Rectal cancer (HCC) [C20] PLAN Planned Procedure: Procedure(s) with comments: XI ROBOTIC LAPAROSCOPIC RESECTION COLON LOW ANTERIOR W/ COLORECTAL ANASTOMOSIS/ POSSIBLE STOMA/ ERAS/ W BLOCK (N/A) - ERAS WITH BLOCK I spent a total of 40 minutes on the date of the service which included preparing to see the patient, [id number] patient care, completing clinical documentation, obtaining and/or [...] 07, 2024 TIME: 12:27 PM PAGER/CONTACT #: [facility]02-27-[facility]25 History and physical note* Osmel Mayes [...] 11/06/2024 Hospital of Planned Surgery or Procedure:: [facility] Status of surgery/procedure:: Scheduled Date of [...] Negative for: dysuria, hematuria and renal failure. CLOTH FINISHING RANGE BACK TENDER: Negative for: vaginal bleeding. Endocrine: Positive for: [...] or any previous visit (from the past 03466 hours). The Following Tests/Procedures Have Been Initiated: No labs ordered per surgeon in [facility] CBC BMP T&S Con ABO ordered per WEB SITE DESIGNER Assessment/Plan Diagnosis: Rectal cancer (HCC) [C20] PLAN Planned Procedure: Procedure(s) with comments: XI ROBOTIC LAPAROSCOPIC RESECTION COLON LOW ANTERIOR W/ COLORECTAL ANASTOMOSIS/ POSSIBLE STOMA/ ERAS/ W BLOCK (N/A) - ERAS WITH BLOCK I spent a total of 40 minutes on the date of the service which included preparing to see the patient, [id number] patient care, completing clinical documentation, obtaining and/or [...] 12:27 PM PAGER/CONTACT #: documented in this encounterSt. Rita'S Hospital02-27-2025 History of Present illness Narrative* Amelia Bhat, RN - 08/07/2024 1:00 PM ESTSummary: Stoma [...] 1:46 PM CONTACT#: [id number] documented in this encounterSt. Rita'S Hospital02-27-2025 NoteHNO ID: [id number] Author: AMELIA BHAT RN Service: ? Author [...] August 07, 2024 TIME: 1:46 PM CONTACT#: [address] [place], [place] [address]02-27-2025 History of Present illness Narrative* Luis F Hurtado RN - 08/07/2024 12:35 PM EST GENERAL SURGERY/ERAS ADMINISTRATIVE SUPPORT SPECIALIST PREOPERATIVE EDUCATION Date: 08/07/2024 Time: 12:30 PM Education provide to: patient and sister Lives with: Alone Mobility: Independent ERAS protocol instructions given with good understanding. Written instructions given to patient. Encouraged to call with any questions. SIGNATURE: Luis F Hurtado RN PATIENT NAME: Trudy Calle DATE: August 07, 2024 TIME: 2:22 PM PAGER/CONTACT #: [phone] documented in this encounterSt. Rita'S Hospital02-27-2025 NoteHNO ID: [id number] Author: LUIS F HURTADO RN Service: ? Author Type: Registered Nurse Type: Progress Notes Filed: 08/07/2024 14:23 Note Text: GENERAL SURGERY/ERAS ADMINISTRATIVE SUPPORT SPECIALIST PREOPERATIVE EDUCATION Date: 08/07/2024 Time: 12:30 PM Education provide to: patient and sister Lives with: Alone Mobility: Independent ERAS protocol instructions given with good understanding. Written instructions given to patient. Encouraged to call with any questions. SIGNATURE: Luis F Hurtado RN PATIENT NAME: Trudy Calle DATE: August 07, 2024 TIME: 2:22 PM PAGER/CONTACT #: [phone] NoteEducation ([facility] TRUDY CALLE ([id number]) 1960 F Date Time Provider Department 08/07/24 LUIS F HURTADO Reason for Visit: Patient Education [91] During your visit today, we recorded the following information about you: Allergies As of Date: 08/07/2024 (No Known Allergies) Date Reviewed: 08/07/2024 Reviewed by: Osmel Mayes APRN.GUT DROPPER - Fully Assessed Prescriptions as of 08/07/2024 [...] Status:Closed by LUIS F HURTADO on 08/07/24[facility] 08-04-2024 Evaluation note* Diagnosis Onset Date Resolution Status Admit Date Colorectal cancer acute Februar y 5 8:00am Hyperlipidemia acute July 132024 8:00am Hypertension [...] present acute November 04, 2024 8 :43am [facility] Work Phone: 1(487) 673-332402-24-2025 Evaluation note* Diagnosis Onset Date Resolution Status Admit Date Colorectal cancer chronic ua2024 8:00am Hyperlipidemia chronic July 132024 8:00am Hypertension [...] 8 :39am Colorectal cancer chronic November 8:39am [facility] Work Phone: 1(992) 464-845602-24-2025 Evaluation note* Diagnosis Onset Date Resolution Status [...] 8:36am Colorectal cancer chronic December 012024 8:36am [facility] Work Phone: 1(577) 504-790202-21-2025 NoteHNO ID: [id number] Author: VIBHA FLORES MD Service: ? Author Type: Physician Type: Progress Notes Filed: 08/01/2024 12:43 Note Text: Vibha Flores M.D. Colon AND Rectal Surgery [address] [facility], [address] [place] [phone] CC: rectosigmoid cancer HPI: Trudy Calle is [...] This office note has been created using [employer], a speech recognition software program, and may contain errors including punctuation, grammar, spelling, gender, and inappropriate words or phrases that pertain to the sytem.[facility]02-21-2025 History of Present illness Narrative* Vibha Flores MD - 08/01/2024 10:55 AM EST Images from the original note were not included. Vibha Flores M.D. Colon & Rectal Surgery [address] [facility], [address] [place] [address] CC: rectosigmoid cancer HPI: Trudy Calle is [...] This office note has been created using [employer], a speech recognition software program, and may contain errors including punctuation, grammar, spelling, gender, and inappropriate words or phrases that pertain to the sytem. documented in this encounterSt. Rita'S Hospital02-07-2025 NoteHNO ID: [id number] Author: VIBHA FLORES MD Service: ? Author Type: Physician Type: Progress Notes Filed: 07/18/2024 12:37 Note Text: Vibha Flores M.D. Colon AND Rectal Surgery [address] [facility], [address] [place] [phone] CC: rectal cancer HPI: Trudy Calle is a 63 year old White female who was referred by MERON Page with [facility] for newly diagnosed rectal adenocarcinoma. My [...] Patient was examined in knee-chest with a firer automatic stoker present. Externally there were small skin tags. [...] for staging of her rectal cancer at [facility]. We will call to obtain the results of her imaging. We will also get the images uploaded to our system. Patient also states that she had a CEA drawn at [facility] as well. We also will request the [...] This office note has been created using [employer], a speech recognition software program, and may contain errors including punctuation, grammar, spelling, gender, (more content not included)...[facility]02-07-2025 History of Present illness Narrative* Vibha Flores MD - 07/18/2024 8:31 AM EST Images from the original note were not included. Vibha Flores M.D. Colon & Rectal Surgery [address] [facility], [address] [place] [phone] CC: rectal cancer HPI: Trudy Calle is a 63 year old White female who was referred by MERON Page with [facility] for newly diagnosed rectal adenocarcinoma. My [...] Patient was examined in knee-chest with a firer automatic stoker present. Externally there were small skin tags. [...] for staging of her rectal cancer at [facility]. We will call to obtain the results of her imaging. We will also get the images uploaded to our system. Patient also states that she had a CEA drawn at [facility] as well. We also will request the [...] This office note has been created using [employer], a speech recognition software program, and may contain errors including punctuation, grammar, spelling, gender, and inappropriate words or phrases that pertain to the sytem. documented in this encounterSt. Rita'S Hospital01-16-2025 [facility]01-07-[facility]25 Evaluation note* Diagnosis Onset Date Resolution Status [...] 092024 2:56pm [facility] lymph node metastas is present acute September 09, 2024 2:56pm [facility] Work Phone: [phone]) 285-123411-20-2024 Evaluation note* Diagnosis Onset Date Resolution Status [...] July 02, 2024 9:46am Colorectal cancer acute uar y 2024 8:00am Hyperlipidemia acute July 132024 8:00am Hypertension chronic July 8:00am Hypothyroidism chronic July 132024 8:00am [facility] Work Phone: Consult note Author Tristin Phipps [facility] Note Date/Time September 17, 2024 9:44 am [facility] Medical Records Department [address] [place] [address] Anesthesia Postop Eval I 09/17/2443 MR#: [id number] Acct: [id number] Name: TRUDY CALLE Rep #:[id number] : 1960 63 From: Tristin Phipps CRNA PCP: Dr. Antoni Slaughter MD Status:R [facility] Y Race: C Location: [place] [address] Anesthesia: Postop Eval I Current Vital Signs [...] Anesthesia document: Postop Eval 1 completed: Yes 09/17/24 0944 <Electronically signed by Tristin saini CRNA> Date _ Tristin Phipps CRNA Cosigner Signature: Date CC: ~ Signed [facility] Work Phone: Discharge summary Author Humberto Leigh [facility] Note Date/Time September 17, 2024 9:38 am [facility] Medical Records Department [address] [place] [address] Instructions for Home/Discharge Instructions 09/17/24 0938 MR#: [id number] Acct: [id number] Name: TRUDY CALLE Rep #:[id number] : 1960 63 From: Humberto garner MD PCP: Dr. Antoni Slaughter MD Status:R [facility] Discharge Instructions Procedure Port-A-Cath Diet Discharge Diet: [...] With: Humberto Leigh MD When: as needed [phone] Test Results: Test results from this visit will be discussed in further detail at your follow- up appointment, if applicable. Discharge Plan Admission Attending Provider: Humberto Leigh Primary Care Provider: Antoni Slaughter Instructions Print Language: [place] Citizen Discharge Orders/Prescriptions Prescriptions: No Action losartan 100 [...] CC: Dr. Antoni Slaughter MD ~ Signed [facility] Work Phone: [employer] note* Diagnosis Onset Date Resolution Status Hypertension chronic Hypothyroidism [facility] Work Phone: Evaluation note* Diagnosis Onset Date Resolution Status Hypertension chronic Hypothyroidism chronic Hypertension chronic Hypothyroidism [facility] Work Phone: Evaluation note* Diagnosis Rectal cancer (HCC)- Primary Malignant neoplasm of rectum documented in this encounter [facility] note* Diagnosis Rectal cancer (HCC)- Primary Malignant neoplasm of rectum Rectal cancer (HCC) Malignant neoplasm of rectum documented in this encounter [facility] note* Diagnosis Rectal cancer (HCC)- Primary Malignant neoplasm of rectum Rectal cancer (HCC) Malignant neoplasm of rectum documented in this encounter [facility] note* Diagnosis Pre-op exam- Primary [...] Assessment & Plan Note - Osmel Mayes APRN.GUT DROPPER - 08/07/2024 1:46 PM EST Associated Problem(s): Nicotine use 50 pack years-currently smoking 3/4 PPD Encouraged to cut back prior to surgery and avoid morning of surgery * Assessment & Plan Note - Osmel Mayes APRN.FLAKO - 08/07/2024 1:42 PM EST Associated Problem(s): PAD (peripheral artery disease) (HCC) Does not follow with vascular any longer. She follows with PCP. Plavix-instructed to get pre op instructions from surgeon and prescribing physician. Blockage in groin per patient No stent per patient Called PCP office to get records to review. * Assessment & Plan Note - Osmel Mayes APRN.FLAKO - 08/07/2024 12:30 PM EST Associated Problem(s): Hypothyroidism Levothyroxine 150 mcg-instructed to take DOS Managed per PCP No labs in epic * Assessment & Plan Note - Osmel Mayes APRN.FLAKO - 08/07/2024 12:30 PM EST Associated Problem(s): [...] at today's visit. [facility] Diagnosis Pre-op exam- Primary Preoperative examination, unspecified Rectal cancer (HCC) Malignant neoplasm of rectum Hyperlipidemia, unspecified hyperlipidemia type Primary hypertension Unspecified essential hypertension Hypothyroidism, unspecified type PVD (peripheral vascular disease) (HCC) Peripheral vascular disease, unspecified PAD (peripheral artery disease) (HCC) Peripheral vascular disease, unspecified Nicotine use Other specified counseling- Primary Rectal cancer (HCC) Malignant neoplasm of rectum [facility] Diagnosis Pre-op exam- Primary Preoperative examination, unspecified Rectal cancer (HCC) Malignant neoplasm of rectum Hyperlipidemia, unspecified hyperlipidemia type Primary hypertension Unspecified essential hypertension Hypothyroidism, unspecified type PVD (peripheral vascular disease) (HCC) Peripheral vascular disease, unspecified PAD (peripheral artery disease) (HCC) Peripheral vascular disease, unspecified Nicotine use Malignant neoplasm of rectosigmoid junction (HCC) Malignant neoplasm of rectosigmoid junction [facility] Author Humberto Leigh [facility] Note Date/Time September 17, 2024 8:[address] [facility] Medical Records Department [address] [place] [address] History & Physical Exam 09/17/24 0834 MR#: [id number] Acct: [id number] Name: TRUDY CALLE Rep #:[id number] : 1960 63 From: Humberto garner MD PCP: Dr. Antoni Slaughter MD Status:R [facility] Location: [place] [address] History and Physical Date of Admission: 09/17/24 [...] Reasons: PORT PLACEMENT Chief Complaint: port placement Cost Report Clerk Required: No Is patient in pain?: No [...] for 5 days. Humberto Leigh MD Pager: [facility] [address], [address] [place] [address] Office: I have seen and examined the patient and reviewed the H&P. THere are no clinicalchanges. 09/17/24 0835 <Electronically signed by Humberto Leigh MD> Cosigner Signature (if applicable): CC: Dr. Humberto Leigh MD; Dr. Antoni Slaughter MD~ Signed [facility] Work Phone: Hospital Discharge instructionsAmbulatory Orders* General Surgery Location: None Selected [facility] Work Phone: Summary Purpose Family History No [...] Will No June 25 11:12am Power of Software Engineering Supervisor No June 25, 2024 11:12am Advance Directive Response Recorded Date/ Time Living Will No June 25 12:12pm Do you have a Healthcare Power of Software Engineering Supervisor? No June 25, 2024 12:12pm Living Will No September 11, 2024 8:24am Do you have a Healthcare Power of Software Engineering Supervisor? No September 11, 2024 8:24am Advance Directive Response Recorded Date/ Time Living Will No October 22, 2024 1 1:12am Do you have a Healthcare Power of Software Engineering Supervisor? No October 22, 2024 11:12am Advance Directives No October 22 11:12am Living Will No September 11, 2024 8:24am Do you have a Healthcare Power of Software Engineering Supervisor? No September 11, 2024 8:24am Advance Directive Response Recorded Date/ Time Living Will No November 04, 2024 1 0:57am Do you have a Healthcare Power of Software Engineering Supervisor? No November 04, 2024 10:57am Advance Directives No November 04 10:57am Living Will No September 11, 2024 8:24am Do you have a Healthcare Power of Software Engineering Supervisor? No September 11, 2024 8:24am Advance Directive Response Recorded Date/ Time Living Will No November 06, 2024 1 2:04pm Do you have a Healthcare Power of Software Engineering Supervisor? No November 06, 2024 12:04pm Advance Directives No November 06 12:04pm Living Will No September 11, 2024 8:24am Do you have a Healthcare Power of Software Engineering Supervisor? No September 11, 2024 8:24am Advance Directive Response Recorded Date/ Time Living Will No November 19, 2024 10:09am Do you have a Healthcare Power of Software Engineering Supervisor? No November 19, 2024 10:09am Advance Directives No November 19 10:09am Living Will No September 11, 2024 8:24am Do you have a Healthcare Power of Software Engineering Supervisor? No September 11, 2024 8:24am Advance Directive Response Recorded Date/ Time Living Will No December 03, 2024 11:27am Do you have a Healthcare Power of Software Engineering Supervisor? No December 03, 2024 11:27am Advance Directives No December 03 11:27am Living Will No September 11, 2024 8:24am Do you have a Healthcare Power of Software Engineering Supervisor? No September 11, 2024 8:24am Chief Complaint [...] 3pm Regional lymph node metastasis present M [facility] 2024 1:03pm Colorectal cancer September 08, 2024 8:4 2am Colorectal cancer September 09, 2024 2:56 pm Encounter for education September 09, 2024 2:56pm Regional lymph node metastasis present A [facility] 2024 2:56pm Chief Complaint Admit Date Malignant [...] 8am Regional lymph node metastasis present A pri 2024 8:38am Colorectal cancer October 20, 2024 [...] 8:00am Regional lymph node metastasis present M [facility] 2024 1:03pm Colorectal cancer September 04, 2024 [...] 2024 8:39a m Encounter for chemotherapy management [facility] 2024 8:39am Regional lymph node metastasis present J [facility] 2024 8:39am Colorectal cancer November 17, 2024 [...] 8:00am Regional lymph node metastasis present M [facility] 2024 1:03pm Colorectal cancer September 04, 2024 [...] 2024 8:39a m Encounter for chemotherapy management ne 2024 8:39am Regional lymph node metastasis present J [facility] 2024 8:39am Colorectal cancer November 17, 2024 8:39a m Regional lymph node metastasis present J [facility] 2024 8:36am Colorectal cancer December 01, 2024 8:36 am Chief Complaint Admit Date 3 WK POST OP [facility] - PATH [...] 01, 2024 8: 36am pump d/c December 03, 2024 11:3 0am C19 Malignant neoplasm of rectosigmoid j unction December 23, 2024 1:16pm Reason for Visit Admit Date Regional lymph node metastasis present M [facility] 2024 1:03pm Colorectal cancer September 04, 2024 [...] 2024 8:39a m Encounter for chemotherapy management ne 2024 8:39am Regional lymph node metastasis present J une 2024 8:39am Colorectal cancer November 17, 2024 8:39a m Regional lymph node metastasis present J une 2024 8:36am Colorectal cancer December 01, 2024 8:36 am Chief Complaint Admit Date Insertion, Vascular Port right poss left September [...] - FOLFOX December 01, 2024 8: 36am C19 Malignant neoplasm of rectosigmoid j unction December 23, 2024 1:16pm [address] January 14, 2025 1 2:18pm pump d/c January 14, 2025 12: 30pm Reason for Visit Admit Date Regional lymph node metastasis present A pril [...] 2024 8:39a m Encounter for chemotherapy management [facility] 2024 8:39am Regional lymph node metastasis present J [facility] 2024 8:39am Colorectal cancer November 17, 2024 8:39a m Regional lymph node metastasis present J [facility] 2024 8:36am Colorectal cancer December 01, 2024 8:36 am Regional lymph node metastasis present A [facility] 2024 12:18pm Colorectal cancer January 14, 2025 12: 18pm Reason for Referral Specialty Diagnoses / Procedures Referred By Jose t Referred To Contact Radiation Oncology Diagnoses Rectal cancer (HCC) Procedures RAD/ONC CONSULT OFFICE/OUTPATIENT [facility] 60 MINUTES Vibha Flores MD [address] [place] [address] Referral ID Status Reason Start Date Expiration Date Visits Requested Visits Authorized [id number] Pending Review PCP Requested Referral 07/18/2024 07/18/2025 1 1 Specialty Diagnoses / Procedures Referred By Jose t Referred To Contact Oncology Diagnoses Rectal cancer (HCC) Procedures CONSULT TO ONCOLOGY OFFICE/OUTPATIENT [facility] 60 MINUTES Vibha Flores MD [address] [place] [address] Referral ID Status Reason Start Date Expiration Date Visits Requested Visits Authorized [id number] Pending Review PCP Requested Referral 07/18/2024 07/18/2025 1 1 Additional Source Comments INFORMATION SOURCE (unrecogn ized section and content) DATE CREATED AUTHOR 08/13/2021 Rory Richardson [facility] DATE CREATED AUTHOR AUTHOR'S ORGANIZ ATION 09/15/2024 [facility] DATE CREATED AUTHOR AUTHOR'S ORGANIZ ATION 01/20/2025 [facility] Care Teams (unrecognized sec tion and content) Team Status: Active Member Role Status Dates Dr. Antoni Slaughter MD Primary Care Provider Active Team Status: Inactive Member Role Status Dates Gideon Bowman PLANT PHYSIOLOGY TEACHER, PLANT PHYSIOLOGY TEACHER-C Attending Provider Active Dr. Antoni Slaughter MD Primary Care Provider, Refer ring Provider Active Team Status: Inactive Member Role Status Dates Dr. Antoni Slaughter MD Primary Care Provider Active Gideon Bowman PLANT PHYSIOLOGY TEACHER, PLANT PHYSIOLOGY TEACHER-C Attending Provider Active Team Status: Inactive Member Role Status Dates Dr. Antoni Slaughter MD Primary Care Provider, Refer ring Provider Active Gideon Bowman NP, PLANT PHYSIOLOGY TEACHER-C Attending Provider Active Contract Programmer Relationship Specialty Start Date End Date Antoni Slaughter MD [address] [facility] [address] [place] [phone] PCP - General Internal Medicine 07/18/24 Contract Programmer Relationship Specialty Start Date End Date Antoni Slaughter MD [address] [facility] [address] [place] [phone] PCP - General Internal Medicine 07/18/24 Antoni Leach [address] [place] [address] Hematology/Oncology 07/29/24 Contract Programmer Relationship Specialty Start Date End Date Antoni Slaughter MD [address] [facility] [address] [place] [address] PCP - General Internal Medicine 07/18/24 Antoni Leach [address] [place] [address] Hematology/Oncology 07/29/24 Contract Programmer Relationship Specialty Start Date End Date Antoni Slaughter MD [address] [facility] [address] [place] [address] PCP - General Internal Medicine 07/18/24 Antoni Leach [address] [place] [address] Hematology/Oncology 07/29/24 Contract Programmer Relationship Specialty Start Date End Date Antoni Slaughter MD [address] [facility] [address] [place] [address] PCP - General Internal Medicine 07/18/24 Antoni Leach [address] [place] [address] Hematology/Oncology 07/29/24 Contract Programmer Relationship Specialty Start Date End Date Antoni Slaughter MD [address] [facility] [address] [place] [address] PCP - General Internal Medicine 07/18/24 Antoni Leach [address] [place] [address] Hematology/Oncology 07/29/24 Contract Programmer Relationship Specialty Start Date End Date Antoni Slaughter, MD [address] [place] [phone] PCP - General Internal Medicine 07/18/24 Antoni Leach [address] [place] [address] Hematology/Oncology 07/29/24 Team Status: Inactive Member Role [...] August 04, 2024 End: August 04, 2024 Contract Programmer Relationship Specialty Start Date End Date Antoni Slaughter MD [address] [facility] [address] [place] [phone] PCP - General Internal Medicine 07/18/24 Antoni Leach [address] [place] [address] Hematology/Oncology 07/29/24 Team Status: Inactive Member Role [...] 2024 End: September 09, 2024 Ceci Hebert NP, PLANT PHYSIOLOGY TEACHER-C Attending Provider Active Start: September 09, 2024 [...] 2024 End: September 29, 2024 Ceci Hebert PLANT PHYSIOLOGY TEACHER, PLANT PHYSIOLOGY TEACHER-C Attending Provider Active Start: September 29, 2024 [...] 2024 End: October 20, 2024 Ceci Hebert PLANT PHYSIOLOGY TEACHER, PLANT PHYSIOLOGY TEACHER-C Attending Provider Active Start: October 20, 2024 [...] 2024 End: November 04, 2024 Ceci Hebert PLANT PHYSIOLOGY TEACHER, PLANT PHYSIOLOGY TEACHER-C Attending Provider Active Start: November 04, 2024 [...] 2024 End: November 17, 2024 Ceci Hebert PLANT PHYSIOLOGY TEACHER, PLANT PHYSIOLOGY TEACHER-C Attending Provider Active Start: November 17, 2024 [...] Provider Active S tart: December 01, 2024 Team Status: Active Member Role/Relationship Status Dates Dr. Antoni Slaughter MD Primary Care Provider Active Team Status: Inactive Member Role/Relationship Status Dates Dr. Antoni Slaughter MD Primary Care Provider Active Start: September 04, 2024 End: September 04, 2024 Dr. Antoni Slaughter MD Referring Provider Active Start: September 04, 2024 End: September 04, 2024 Dr. Antoni Leach MD Attending Provider Active Start: September 04, 2024 End: September 04, 2024 Team Status: Inactive Member Role/Relationship Status Dates Dr. Antoni Slaughter MD Primary Care Provider Active Start: September 08, 2024 End: September 08, 2024 Dr. Antoni Slaughter MD Referring Provider Active Start: September 08, 2024 End: September 08, 2024 Dr. Humberto Leigh MD Attending Provider Active Start: September 08, 2024 End: September 08, 2024 Team Status: Inactive Member Role/Relationship Status Dates Dr. Antoni Slaughter MD Primary Care Provider Active Start: September 09, 2024 End: September 09, 2024 Dr. Antoni Slaughter MD Referring Provider Active Start: September 09, 2024 End: September 09, 2024 Ceci Hebert PLANT PHYSIOLOGY TEACHER, PLANT PHYSIOLOGY TEACHER-C Attending Provider Active Start: September 09, 2024 End: September 09, 2024 Team Status: Inactive Member Role/Relationship Status Dates Dr. Antoni Slaughter MD Primary Care Provider Active Start: September 17, 2024 End: September 17, 2024 Dr. Antoni Slaughter MD Referring Provider Active Start: September 17, 2024 End: September 17, 2024 Dr. Humberto Leigh MD Attending Provider Active Start: September 17, 2024 End: September 17, 2024 Team Status: Active Member Role/Relationship Status Dates Dr. Antoni Slaughter MD Primary Care Provider Active Start: September 17, 2024 Dr. Antoni Slaughter MD Referring Provider Active Start: September 17, 2024 Dr. Humberto Leigh MD Attending Provider Active Start: September 17, 2024 Dr. Humberto Leigh MD Other Provider Active Start: September 17, 2024 Team Status: Inactive Member Role/Relationship Status Dates Dr. Antoni Slaughter MD Primary Care Provider Active Start: September 22, 2024 End: September 22, 2024 Dr. Antoni Slaughter MD Referring Provider Active Start: September 22, 2024 End: September 22, 2024 Dr. Antoni Leach MD Attending Provider Active Start: September 22, 2024 End: September 22, 2024 Team Status: Inactive Member Role/Relationship Status Dates Dr. Antoni Slaughter MD Primary Care Provider Active Start: September 29, 2024 End: September 29, 2024 Dr. Antoni Slaughter MD Referring Provider Active Start: September 29, 2024 End: September 29, 2024 Ceci Hebert PLANT PHYSIOLOGY TEACHER, PLANT PHYSIOLOGY TEACHER-C Attending Provider Active Start: September 29, 2024 End: September 29, 2024 Team Status: Inactive Member Role/Relationship Status Dates Dr. Antoni Slaughter MD Primary Care Provider Active Start: October 06, 2024 End: October 06, 2024 Dr. Antoni Slaugther MD Referring Provider Active Start: October 06, 2024 End: October 06, 2024 Dr. Antoni Leach MD Attending Provider Active Start: October 06, 2024 End: October 06, 2024 Team Status: Inactive Member Role/Relationship Status Dates Dr. Antoni Slaughter MD Primary Care Provider Active Start: October 20, 2024 End: October 20, 2024 Dr. Antoni Slaughter MD Referring Provider Active Start: October 20, 2024 End: October 20, 2024 Ceci Hebert PLANT PHYSIOLOGY TEACHER, PLANT PHYSIOLOGY TEACHER-C Attending Provider Active Start: October 20, 2024 End: October 20, 2024 Team Status: Inactive Member Role/Relationship Status Dates Dr. Antoni Slaughter MD Primary Care Provider Active Start: November 04, 2024 End: November 04, 2024 Dr. Antoni Slaughter MD Referring Provider Active Start: November 04, 2024 End: November 04, 2024 Ceci Hebert PLANT PHYSIOLOGY TEACHER, PLANT PHYSIOLOGY TEACHER-C Attending Provider Active Start: November 04, 2024 End: November 04, 2024 Team Status: Inactive Member Role/Relationship Status Dates Dr. Antoni Slaughter MD Primary Care Provider Active Start: 2024 End: 2024 Dr. Antoni Slaughter MD Attending Provider Active Start: 2024 End: 2024 Dr. Antoni Slaughter MD Referring Provider Active Start: 2024 End: 2024 Team Status: Inactive Member Role/Relationship Status Dates Dr. Antoni Slaughter MD Primary Care Provider Active Start: November 17, 2024 End: November 17, 2024 Dr. Antoni Slaughter MD Referring Provider Active Start: November 17, 2024 End: November 17, 2024 Ceci Hebert PLANT PHYSIOLOGY TEACHER, PLANT PHYSIOLOGY TEACHER-C Attending Provider Active Start: November 17, 2024 End: November 17, 2024 Team Status: Inactive Member Role/Relationship Status Dates Dr. Antoni Slaughter MD Primary Care Provider Active Start: December 01, 2024 End: December 01, 2024 Dr. Antoni Slaughter MD Referring Provider Active Start: December 01, 2024 End: December 01, 2024 Dr. Antoni Leach MD Attending Provider Active Start: December 01, 2024 End: December 01, 2024 Team Status: Active Member Role/Relationship Status Dates Dr. Antoni Slaughter MD Primary Care Provider Active Start: December 03, 2024 Dr. Dayton Lewis MD Attending Provider Active S tart: December 03, 2024 Dr. Dayton Lewis MD Referring Provider Active S tart: December 03, 2024 Team Status: Inactive Member Role/Relationship Status Dates Dr. Antoni Slaughter MD Primary Care Provider Active Start: December 23, 2024 End: December 23, 2024 Dr. Antoni Leach MD Attending Provider Active Start: December 23, 2024 End: December 23, 2024 Dr. Antoni Leach MD Referring Provider Active Start: December 23, 2024 End: December 23, 2024 Team Status: Inactive Member Role/Relationship Status Dates Dr. Antoni Slaughter MD Primary Care Provider Active Start: September 17, 2024 End: September 17, 2024 Dr. Antoni Slaughter MD Referring Provider Active Start: September 17, 2024 End: September 17, 2024 Dr. Humberto Leigh MD Attending Provider Active Start: September 17, 2024 End: September 17, 2024 Team Status: Active Member Role/Relationship Status Dates Dr. Antoni Slaughter MD Primary Care Provider Active Start: September 17, 2024 Dr. Antoni Slaughter MD Referring Provider Active Start: September 17, 2024 Dr. Humberto Leigh MD Attending Provider Active Start: September 17, 2024 Dr. Humberto Leigh MD Other Provider Active Start: September 17, 2024 Team Status: Inactive Member Role/Relationship Status Dates Dr. Antoni Slaughter MD Primary Care Provider Active Start: September 22, 2024 End: September 22, 2024 Dr. Antoni Slaughter MD Referring Provider Active Start: September 22, 2024 End: September 22, 2024 Dr. Antoni Leach MD Attending Provider Active Start: September 22, 2024 End: September 22, 2024 Team Status: Inactive Member Role/Relationship Status Dates Dr. Antoni Slaughter MD Primary Care Provider Active Start: September 29, 2024 End: September 29, 2024 Dr. Antoni Slaughter MD Referring Provider Active Start: September 29, 2024 End: September 29, 2024 Ceci Hebert PLANT PHYSIOLOGY TEACHER, PLANT PHYSIOLOGY TEACHER-C Attending Provider Active Start: September 29, 2024 End: September 29, 2024 Team Status: Inactive Member Role/Relationship Status Dates Dr. Antoni Slaughter MD Primary Care Provider Active Start: October 06, 2024 End: October 06, 2024 Dr. Antoni Slaughter MD Referring Provider Active Start: October 06, 2024 End: October 06, 2024 Dr. Antoni Leach MD Attending Provider Active Start: October 06, 2024 End: October 06, 2024 Team Status: Inactive Member Role/Relationship Status Dates Dr. Antoni Slaughter MD Primary Care Provider Active Start: October 20, 2024 End: October 20, 2024 Dr. Antoni Slaughter MD Referring Provider Active Start: October 20, 2024 End: October 20, 2024 Ceci Hebert PLANT PHYSIOLOGY TEACHER, PLANT PHYSIOLOGY TEACHER-C Attending Provider Active Start: October 20, 2024 End: October 20, 2024 Team Status: Inactive Member Role/Relationship Status Dates Dr. Antoni Slaughter MD Primary Care Provider Active Start: November 04, 2024 End: November 04, 2024 Dr. Antoni Slaughter MD Referring Provider Active Start: November 04, 2024 End: November 04, 2024 Ceci Hebert PLANT PHYSIOLOGY TEACHER, PLANT PHYSIOLOGY TEACHER-C Attending Provider Active Start: November 04, 2024 End: November 04, 2024 Team Status: Inactive Member Role/Relationship Status Dates Dr. Antoni Slaughter MD Primary Care Provider Active Start: 2024 End: 2024 Dr. Antoni Slaughter MD Attending Provider Active Start: 2024 End: 2024 Dr. Antoni Slaughter MD Referring Provider Active Start: 2024 End: 2024 Team Status: Inactive Member Role/Relationship Status Dates Dr. Antoni Slaughter MD Primary Care Provider Active Start: November 17, 2024 End: November 17, 2024 Dr. Antoni Slaughter MD Referring Provider Active Start: November 17, 2024 End: November 17, 2024 Ceci Hebert NP, PLANT PHYSIOLOGY TEACHER-C Attending Provider Active Start: November 17, 2024 End: November 17, 2024 Team Status: Inactive Member Role/Relationship Status Dates Dr. Antoni Slaughter MD Primary Care Provider Active Start: December 01, 2024 End: December 01, 2024 Dr. Antoni Slaughter MD Referring Provider Active Start: December 01, 2024 End: December 01, 2024 Dr. Antoni Leach MD Attending Provider Active Start: December 01, 2024 End: December 01, 2024 Team Status: Inactive Member Role/Relationship Status Dates Dr. Antoni Slaughter MD Primary Care Provider Active Start: December 23, 2024 End: December 23, 2024 Dr. Antoni Leach MD Attending Provider Active Start: December 23, 2024 End: December 23, 2024 Dr. Antoni Leach MD Referring Provider Active Start: December 23, 2024 End: December 23, 2024 Team Status: Inactive Member Role/Relationship Status Dates Dr. Antoni Slaughter MD Primary Care Provider Active Start: January 14, 2025 End: January 14, 2025 Dr. Antoni Slaughter MD Referring Provider Active Start: January 14, 2025 End: January 14, 2025 Dr. Antoni Leach MD Attending Provider Active Start: January 14, 2025 End: January 14, 2025 Team Status: Active Member Role/Relationship Status Dates Dr. Antoni Slaughter MD Primary Care Provider Active Start: January 14, 2025 Dr. Dayton Lewis MD Attending Provider Active S tart: January 14, 2025 Dr. Dayton Lewis MD Referring Provider Active S tart: January 14, 2025 Goals (unrecognized section and content) Goals may [...] or prosecute any alcohol or drug abuse patient.[facility] the event this information is protected by the Federal Confidentiality of Alcohol and Drug Abuse Patient Records regulations: The Federal rules restrict any use of the information to criminally investigate or prosecute any alcohol or drug abuse patient.[facility] Hospital[facility] the event this information is protected by the Federal Confidentiality of Alcohol and Drug Abuse Patient Records regulations: The Federal rules restrict any use of the information to criminally investigate or prosecute any alcohol or drug abuse patient.[facility] the event this information is protected by the Federal Confidentiality of Alcohol and Drug Abuse Patient Records regulations: The Federal rules restrict any use of the information to criminally investigate or prosecute any alcohol or drug abuse patient.[facility] the event this information is protected by the Federal Confidentiality of Alcohol and Drug Abuse Patient Records regulations: The Federal rules restrict any use of the information to criminally investigate or prosecute any alcohol or drug abuse patient.[facility] the event this information is protected by the Federal Confidentiality of Alcohol and Drug Abuse Patient Records regulations: The Federal rules restrict any use of the information to criminally investigate or prosecute any alcohol or drug abuse patient.[facility] Hospital[facility] the event this information is protected by the Federal Confidentiality of Alcohol and Drug Abuse Patient Records regulations: The Federal rules restrict any use of the information to criminally investigate or prosecute any alcohol or drug abuse patient.[facility] Hospital[facility] the event this information is protected by the Federal Confidentiality of Alcohol and Drug Abuse Patient Records regulations: The Federal rules restrict any use of the information to criminally investigate or prosecute any alcohol or drug abuse patient.[facility] Hospital[facility] the event this information is protected by the Federal Confidentiality of Alcohol and Drug Abuse Patient Records regulations: The Federal rules restrict any use of the information to criminally investigate or prosecute any alcohol or drug abuse patient.[facility] Reason for Visit (unrecogniz ed section and content) Reason Comments New Patient Specialty Diagnoses / Procedures Referred By Contac t Referred To Contact General Surgery / GENERAL SURGERY Diagnoses Malignant neoplasm of rectum rectal mass Procedures OFFICE/OUTPATIENT NEW MODERATE MDM 45 MINUTES OFFICE/OUTPATIENT ESTABLISHED MOD MDM 30 MIN NEW PATIENT Self Vibha Flores MD [address] [place] [address] Referral ID Status Reason Start Date Expiration Date V isits Requested Visits Authorized [id number] Authorized 07/18/2024 06/10/2025 99 99 Reason Comments discuss surgery Specialty Diagnoses / Procedures Referred By Contac t Referred To Contact General Surgery / GENERAL SURGERY Diagnoses Malignant neoplasm of rectum rectal mass Procedures OFFICE/OUTPATIENT NEW MODERATE MDM 45 MINUTES OFFICE/OUTPATIENT ESTABLISHED MOD MDM 30 MIN NEW PATIENT Self Vibha Flores MD [address] [place] [address] Phone: tel: fax:[phone] Reason Comments Patient Education Reason Comments Stoma Markings Marked RUQ, LUQ only Reason Onset Date Comments Bioinformatics Technician - Hospital Follow Up 08/19/2024 Reason Comments Post Op XI ROBOTIC LAPAROSCO PIC RESECTION COLON LOW ANTERIOR Reason Onset Date Comments Bioinformatics Technician - Hospital Follow Up 09/12/2024 FOR RECORDS [...] BE BASED ON THE PRIMARY CLINICAL RECORDS. [employer] provides no warranty or guarantee of the accuracy or completeness of information in this document.
--- NOTE | 2025-01-20 07:45 | BI_ITS ---
EXAM: SCRN MAMM (CAD)W/OCHOA BILAT DATE: 01/20/2025 CLINICAL HISTORY: F, Age 64 y/o , ANNUAL SCREENING TECHNIQUE: SCRN MAMM (CAD)W/OCHOA BILAT COMPARISON: Prior exam(s) dated 07/17/2023. FINDINGS: TISSUE DENSITY: There are scattered areas of fibroglandular density. Bilateral Breast Mammographic Findings: No significant masses, calcifications or other abnormalities are identified. BI/SCRN MAMM (CAD)W/OCHOA BILAT IMPRESSION: There is no mammographic evidence of malignancy. OVERALL FINAL ASSESSMENT BI-RADS 1: NEGATIVE. RECOMMENDATION: Routine annual follow-up in 1 Year A letter with findings and recommendations will be mailed to the patient. Reading Location: [id number]
== END | disposition home or self-care (01) ==
LOC: OPBI 07:18
PROVIDERS: PCP Internal Medicine; Referring Provider Internal Medicine Hematology & Oncology; Visit Provider Internal Medicine Hematology & Oncology
DX: Z12.31 Encounter for screening mammogram for malignant neoplasm of breast (principal)
CPT/HCPCS: 77063; 77067

== ENCOUNTER → 2025-04-11 | Outpatient (CLI) | payer MEDICARE, SELFPAY ==
[2025-04-11 10:31] LABS: Cholesterol 166 mg/dL (<=200); Low Density Lipoprotein Calc. 98 mg/dL; Triglycerides 218 mg/dL; Very Low Density Lipoprotein 44 mg/dL (5-40); cholesterol:hdl ratio screen 5.41
[2025-04-12 08:08] LABS: Carcinoembryonic Antigen 4.1 ng/mL (0.0-4.7)
== END | disposition home or self-care (01) ==
LOC: LAB 09:25
PROVIDERS: PCP Internal Medicine; Referring Provider Internal Medicine Hematology & Oncology; Visit Provider Internal Medicine Hematology & Oncology
DX: E03.9 Hypothyroidism, unspecified (principal); I10 Essential (primary) hypertension
CPT/HCPCS: 36415; 80061; 82378; 84443

== ENCOUNTER → 2025-05-01 | Outpatient (CLI) | payer MEDICARE, SELFPAY ==
--- NOTE | 2025-05-01 09:42 | US_ITS ---
PROCEDURE: TRANSVAGINAL NON- 05/01/2025 REASON FOR EXAM: POST MENOPAUSAL BLEEDING TECHNIQUE: Procedure Code: USTVAG Modality: US Procedure: TRANSVAGINAL NON-. Limited evaluation. Patient was unable to tolerate the transvaginal probe. COMPARISON: None FINDINGS: Measurements: Uterus: 5.9 cm x 3.5 cm x 2.9 cm with a volume of 31.7 mL Endometrial Thickness: 10 mm. Right Ovary: Not visualized. Left Ovary: Not visualized. Uterus: Normal size, myometrial echotexture, and contour. Endometrium: Endometrial thickening measuring 10 mm. Right ovary: Not visualized. Left ovary: Not visualized. Other: US/Transvaginal Non- IMPRESSION: Limited study. Endometrial thickening at 10 mm. Clinical correlation recommended. Reading Location: [place] [id number]
[2025-05-01 11:10] LABS: Hematocrit 35.0 % (37-47); Hemoglobin 11.7 g/dL (12.0-15.0); Immature Granulocytes Count 0.020 X10^3/uL (0.0-0.0); Mean Corp Hgb Conc 33.4 g/dL (32-36); Mean Corpuscular Volume 88.2 fL (81-99); Mean Platelet Vol. 11.5 fl (6.2-12.0); NRBC Flagged by Analyzer 0 % (0-5); Platelet Count 240 K/mm3 (150-450); RBC Distribution Width CV 14.5 % (11.6-14.6); RBC Distribution Width SD 46.4 fl (35.1-43.9); Red Blood Count 3.97 M/mm3 (4.2-5.4); White Blood Count 7.8 K/mm3 (4.4-11.0)
[2025-05-01 11:46] LABS: AST(SGOT) 17 U/L (<=31); Alanine Aminotransfer ALT/SGPT 24 U/L (<=34); Albumin, Serum 4.1 g/dL (3.4-4.8); Alkaline Phosphatase 114 U/L (35-104); Anion Gap 12 (5-15); BUN 22 mg/dL (4-19); BUN/Creat Ratio 25.3 RATIO (10-20); Calcium,Total 9.9 mg/dL (7.6-11.0); Carbon Dioxide 25.4 mmol/L (21.0-32.0); Chloride 104 mmol/L (98-108); Globulin 2.9 g/dL (2.2-4.2); Glucose 107 mg/dL (70-99); Potassium 4.0 mmol/L (3.3-5.1)
== END | disposition home or self-care (01) ==
PROVIDERS: PCP Internal Medicine; Referring Provider Internal Medicine; Visit Provider Internal Medicine
DX: N95.0 Postmenopausal bleeding (principal)
CPT/HCPCS: 36415; 76830; 80053; 85025